=== PATIENT | male | born 1935 | race African-American/Black ===

== ENCOUNTER 2017-06-02 11:21 | Emergency (ER) | payer OTHER ==
--- NOTE | 2017-06-02 13:11 | RAD REPORT ---
EXAM DESCRIPTION: RAD - Chest Single View - 06/02/2017 1:04 pm CLINICAL HISTORY: Chest pain. COMPARISON: 05/20/2014, 02/15/2017 FINDINGS: Portable technique limits examination quality. Chronic inferior right hemithorax pleural and parenchymal opacification appears unchanged. Left lung is emphysematous but clear. The heart is normal in size. No displaced fractures.Mildly tortuous thora cic aorta.
[2017-06-02 13:14] LABS: Absolute Lymphocytes (CBC) 0.8 K/uL (0.7-4.9); Absolute Monocytes 0.4 K/uL (0.1-1.3); Absolute Neutrophil 3.8 K/uL (1.8-8.0); Basophils % 0.8 % (0-1.3); Eosinophils % 0.7 % (0-4.4); Hematocrit 52.6 % (39.6-49.0); Lymphocytes % 16.4 % (15.3-44.8); MCH 25.5 pg (27.0-35.0); MCV 79.4 fL (80-100); MPV 7.6 fL (7.6-11.3); Monocytes % 7.5 % (3.3-12.3); RBC Red Blood Cell Count 6.63 M/uL (4.33-5.43)
[2017-06-02 13:20] LABS: Protime INR 0.93
[2017-06-02 13:28] LABS: Potassium 4.7 mEq/L (3.6-5.0)
[2017-06-02 13:34] LABS: Albumin 4.2 g/dL (3.2-5.5); Bilirubin Direct 0.2 mg/dL (0-0.2); Bilirubin Total 1.1 mg/dL (0.3-1.2); Magnesium 2.5 mg/dL (1.8-2.5); Protein, Total 7.8 g/dL (6.0-8.3)
--- NOTE | 2017-06-02 13:43 | EKG ---
Test Date: 2017-06-02 Test Time: 11:39:03 Range Scientist: ROYAL MEASUREMENT RESULTS: Intervals: Rate: 69 ID: [id number] QRSD: 78 QT: 384 QTc: 411 Blanket: P: 64 ID: [id number] QRS: 81 T: 86 INTERPRETIVE STATEMENTS: Normal sinus rhythm Normal ECG Compared to ECG 05/20/2017 08:55:15 No significant changes Electronically Signed On 06-02-17 13:42:30 CDT by Maurcie Mratin
[2017-06-02 14:14] LABS: Urine Blood TRACE (NEG); Urine Glucose NEGATIVE (NEG); Urine Protein NEGATIVE (NEG); Urine pH 6.5 (5.0-7.0)
--- NOTE | 2017-06-02 14:58 | EDPHYS ---
Physician Documentation [facility] Name: Deacon Howe Jr Age: 81 yrs Sex: Male : 1935 Arrival Date: 06/02/2017 Time: 11:26 Bed 7 Private MD: ED Physician Gato Rodriguez HPI: 06/02 17:31 This 81 yrs old Black Male presents to ER via Ambulatory with complaints of Chest Pain, kdr shoulder pain, abdominal pain and misc other chest pain. 17:31 The patient or guardian reports chest pain that is located primarily in the anterior kdr chest wall. Onset: gradually, These are intermittent problems for which he has been evaluated previously. The pain does not radiate. Associated signs and symptoms: The patient has no apparent associated signs or symptoms. The chest pain is described as aching, dull. Duration: The patient or guardian reports multiple episodes, that are intermittent, that wax and wane, with no pattern. Severity of pain: At its worst the pain was mild in the emergency department the pain is unchanged. The patient has experienced similar episodes in the past, multiple times. Historical: - Allergies: 11:57 NKDA; hj - Home Meds: 11:57 Metoprolol Tartrate Oral [Active]; hj - PMHx: 11:57 colon cancer; Hypertension; hj - PSHx: 11:57 Cholecystectomy; right hip; right knee; colon resection; hj - Immunization history:: Adult Immunizations unknown. - Social history:: Smoking status: unknown. ROS: 17:31 Constitutional: Negative for fever, chills, and weight loss, Eyes: Negative for injury, kdr pain, redness, and discharge, Neck: Negative for injury, pain, and swelling, Respiratory: Negative for shortness of breath, cough, wheezing, and pleuritic chest pain, Back: Negative for injury and pain, : Negative for injury, bleeding, discharge, and swelling, MS/Extremity: Negative for injury and deformity, Skin: Negative for injury, rash, and discoloration, Neuro: Negative for headache, weakness, numbness, tingling, and seizure activity. Psych: Negative for depression, anxiety, suicide ideation, homicidal ideation, and hallucinations, Allergy/Immunology: Negative for hives, rash, and allergies, Endocrine: Negative for neck swelling, polydipsia, polyuria, polyphagia, and marked weight changes, Hematologic/Lymphatic: Negative for swollen nodes, abnormal bleeding, and unusual bruising. 17:31 Cardiovascular: Positive for chest pain. 17:31 Abdomen/GI: Positive for abdominal pain. Exam: 17:31 Constitutional: This is a well developed, well nourished patient who is awake, alert, kdr and in no acute distress. Head/Face: Normocephalic, atraumatic. Eyes: Pupils equal round and reactive to light, extra-ocular motions intact. Lids and lashes normal. Conjunctiva and sclera are non-icteric and not injected. Cornea within normal limits. Periorbital areas with no swelling, redness, or edema. Neck: Trachea midline, no thyromegaly or masses palpated, and no cervical lymphadenopathy. Supple, full range of motion without nuchal rigidity, or vertebral point tenderness. No Meningismus. Chest/axilla: Normal chest wall appearance and motion. Nontender with no deformity. No lesions are appreciated. Cardiovascular: Regular rate and rhythm with a normal S1 and S2. No gallops, murmurs, or rubs. Normal PMI, no JVD. No pulse deficits. Respiratory: Lungs have equal breath sounds bilaterally, clear to auscultation and percussion. No rales, rhonchi or wheezes noted. No increased work of breathing, no retractions or nasal flaring. Abdomen/GI: Soft, non-tender, with normal bowel sounds. No distension or tympany. No guarding or rebound. No evidence of tenderness throughout. Back: No spinal tenderness. No costovertebral tenderness. Full range of motion. Skin: Warm, dry with normal turgor. Normal color with no rashes, no lesions, and no evidence of cellulitis. MS/ Extremity: Pulses equal, no cyanosis. Neurovascular intact. Full, normal range of motion. Neuro: Awake and alert, GCS 15, oriented to person, place, time, and situation. Cranial nerves II-XII grossly intact. Motor strength 5/5 in all extremities. Sensory grossly intact. Cerebellar exam normal. Normal gait. Psych: Awake, alert, with orientation to person, place and time. Behavior, mood, and affect are within normal limits. Vital Signs: 11:57 BP 129 / 82; Pulse 95; Resp 18; Temp 97.9(O); Pulse Ox 98% on R/A; Weight 73.48 kg; hj Height 6 ft. 1 in. (185.42 cm); Pain 8/10; 12:45 BP 153 / 93; Pulse 71; Resp 20; Pulse Ox 98% ; Pain 7/10; jtb 13:30 BP 137 / 69; Pulse 67; Resp 18 S; Pulse Ox 99% on R/A; jl7 14:13 BP 123 / 46; Pulse 73; Resp 18; Pulse Ox 98% on R/A; jb1 14:45 BP 150 / 80; Pulse 75; Resp 16 S; Pulse Ox 98% on R/A; jl7 11:57 Body Mass Index 21.37 (73.48 kg, 185.42 cm) hj MDM: 14:57 Patient medically screened. kdr 17:31 Data reviewed: vital signs, nurses notes, lab test result(s), radiologic studies. kdr Counseling: I had a detailed discussion with the patient and/or guardian regarding: the historical points, exam findings, and any diagnostic results supporting the discharge/admit diagnosis, lab results, radiology results, the need for outpatient follow up. 06/02 12:48 Order name: Basic Metabolic Panel [facility] 06/02 12:48 Order name: BNP [facility] 06/02 12:48 Order name: CBC with Diff [facility] 06/02 12:48 Order name: LFT's [facility] 06/02 12:48 Order name: Magnesium [facility] 06/02 12:48 Order name: PT-INR [facility] 06/02 12:48 Order name: Ptt, Activated [facility] 06/02 12:48 Order name: Troponin (emerg Dept Use Only) [facility] 06/02 13:15 Order name: CBC with Automated Diff; Complete Time: 13:57 EDMS 06/02 13:20 Order name: Protime (+INR); Complete Time: 13:57 EDMS 06/02 13:20 Order name: PTT, Activated Partial Thromb; Complete Time: 13:57 EDMS 06/02 13:28 Order name: Basic Metabolic Panel; Complete Time: 13:57 EDMS 06/02 13:28 Order name: Urine Dipstick--Ancillary (enter results) ms 06/02 13:34 Order name: Liver (Hepatic) Function; Complete Time: 13:57 EDMS 06/02 12:01 Order name: EKG; Complete Time: 12:01 06/02 12:48 Order name: XRAY Chest (1 view) [facility] 06/02 12:48 Order name: Cardiac monitoring; Complete Time: 13: [facility] 06/02 12:48 Order name: EKG - Nurse/Tech; Complete Time: 13: [facility] 06/02 12:48 Order name: IV Saline Lock; Complete Time: 13: [facility] 06/02 12:48 Order name: Labs collected and sent; Complete Time: 13: [facility] 06/02 12:48 Order name: O2 Per Protocol; Complete Time: 13: [facility] 06/02 12:48 Order name: O2 Sat Monitoring; Complete Time: 13: [facility] 06/02 12:48 Order name: Urine Dipstick-Ancillary (obtain specimen); Complete Time: 13: [facility] 06/02 13:11 Order name: RAD; Complete Time: 13:57 EDMS 06/02 13:34 Order name: Magnesium; Complete Time: 13:57 EDMS 06/02 13:34 Order name: Troponin (Emerg Dept Use Only); Complete Time: 13:57 EDMS 06/02 13:37 Order name: BNP B-Type Natriuretic Peptide; Complete Time: 13:57 EDMS 06/02 14:14 Order name: Urine Dipstick-Ancillary; Complete Time: 14:49 EDMS Administered Medications: No medications were administered Disposition: 06/02/17 14:57 Discharged to Home. Impression: chronic chest pain, shoulder pain, abdominal pain. - Condition is Stable. - Discharge Instructions: Shoulder Pain, [id number], Abdominal Pain, Adult, [id number], Nonspecific Chest Pain, [id number]. - Medication Reconciliation Form, Thank You Letter, Antibiotic Education, Prescription Opioid Use form. - Follow up: Private Physician; When: 2 - 3 days; Reason: If symptoms return, Further diagnostic work-up, Recheck today's complaints, Continuance of care, Re-evaluation by your physician. - Problem is an ongoing problem. - Symptoms are unchanged. Signatures: Dispatcher [employer] EDMS Gato Rodriguez MD MD [facility] Trey Landaverde RN RN hj Skye Gore RN RN jl7 Hudson Johnson
--- NOTE | 2017-06-02 14:58 | ER ---
Nurse's Notes [facility] Name: Deacon Howe Jr Age: 81 yrs Sex: Male : 1935 Arrival Date: 06/02/2017 Time: 11:26 Bed 7 Private MD: Diagnosis: chronic chest pain, shoulder pain, abdominal pain Presentation: 06/02 11:54 Presenting complaint: EMS states: was called for a pt complaining of chest pain and abd hj pain in the last 3 days, reports nausea and vomiting; hx of colon cancer; BP- 156/84; HR- 69; 97% RA; aspirin 81 mg x 4 given 15 mins IS ARCHITECT:. Transition of care: patient was not received from another setting of care. Onset of symptoms was June 02, 2017. Care prior to arrival: None. 11:54 Method Of Arrival: Ambulatory 11:54 Acuity: ALIN 3 hj Triage Assessment: 11:56 General: Appears in no apparent distress. uncomfortable, Behavior is calm, cooperative, hj appropriate for age. Pain: Complains of pain in chest and abdomen. Cardiovascular: Capillary refill < 3 seconds Patient's skin is warm and dry. Historical: - Allergies: 11:57 NKDA; hj - Home Meds: 11:57 Metoprolol Tartrate Oral [Active]; hj - PMHx: 11:57 colon cancer; Hypertension; hj - PSHx: 11:57 Cholecystectomy; right hip; right knee; colon resection; hj - Immunization history:: Adult Immunizations unknown. - Social history:: Smoking status: unknown. Screenin:45 Abuse screen: Denies threats or abuse. Denies injuries from another. Nutritional jtb screening: No deficits noted. Tuberculosis screening: No symptoms or risk factors identified. Fall Risk IV access (20 points). Total Pedroza Fall Scale indicates No Risk (0-24 pts). Assessment: 11:56 Pain: Pain does not radiate. Pain began 2-3 days ago. hj 12:45 General: Appears in no apparent distress. uncomfortable, Behavior is calm, cooperative, jtb appropriate for age. Pain: Complains of pain in left low back, mid-sternal area and abdomen and left shoulder Pain does not radiate. Pain currently is 7 out of 10 on a pain scale. Quality of pain is described as aching, Pain began 2-3 days ago. Is intermittent. Neuro: Level of Consciousness is awake, alert, obeys commands, Oriented to person, place, time, situation. Cardiovascular: Patient's skin is warm and dry. Respiratory: Airway is patent Respiratory effort is even, unlabored, Respiratory pattern is regular, symmetrical. GI: Abdomen is flat, non-distended, Bowel sounds present X 4 quads. : No signs and/or symptoms were reported regarding the genitourinary system. EENT: No signs and/or symptoms were reported regarding the EENT system. Derm: Skin is dry, Skin is normal, Skin temperature is warm. Musculoskeletal: No signs and/or symptoms reported regarding the musculoskeletal system. 13:30 Reassessment: Pt laying in bed with eyes closed, respirations even and unlabored, no jl7 signs of distress noted at this time. Vital Signs: 11:57 BP 129 / 82; Pulse 95; Resp 18; Temp 97.9(O); Pulse Ox 98% on R/A; Weight 73.48 kg; hj Height 6 ft. 1 in. (185.42 cm); Pain 8/10; 12:45 BP 153 / 93; Pulse 71; Resp 20; Pulse Ox 98% ; Pain 7/10; jtb 13:30 BP 137 / 69; Pulse 67; Resp 18 S; Pulse Ox 99% on R/A; jl7 14:13 BP 123 / 46; Pulse 73; Resp 18; Pulse Ox 98% on R/A; jb1 14:45 BP 150 / 80; Pulse 75; Resp 16 S; Pulse Ox 98% on R/A; jl7 11:57 Body Mass Index 21.37 (73.48 kg, 185.42 cm) ED Course: 11:26 Patient arrived in ED. rg4 11:46 EKG done, by senior games technician. reviewed by Gato Rodriguez MD. tc 11:56 Triage completed. hj 11:56 Patient maintains SpO2 saturation greater than 95% on room air. hj 11:56 Arm band placed on right wrist. hj 12:08 Gato Rodriguez MD is Attending Physician. kdr 12:10 Skye Gore RN is Primary Nurse. jl7 12:45 Initial lab(s) drawn, by nh, sent to lab. Inserted saline lock: 22 gauge in right jtb forearm, using aseptic technique. Blood collected. 12:45 Patient has correct armband on for positive identification. Placed in gown. Bed in low jtb position. Call light in reach. Side rails up X 1. court recording monitor on. Pulse ox on. NIBP on. Warm blanket given. 13:01 X-ray completed. Portable x-ray completed in exam room. Patient tolerated procedure la2 well. 13:21 Urine collected: clean catch specimen, cloudy, marko colored. jb1 15:06 No provider procedures requiring assistance completed. IV discontinued, intact, jl7 bleeding controlled, No redness/swelling at site. Pressure dressing applied. Administered Medications: No medications were administered Outcome: 14:57 Discharge ordered by . kdr 15:06 Discharged to home ambulatory. jl7 15:06 Condition: stable 15:06 Discharge instructions given to patient, Instructed on discharge instructions, follow up and referral plans. Demonstrated understanding of instructions, follow-up care. 15:07 Patient left the ED. jl7 Signatures: Cristiano Lawrence jb1 Gato Rodriguez MD MD kdr Callis, Tiffany, inside account executive EKG Ttc Trey Landaverde, RN RN Janet El Jahala, RN RN jl7 Codi Gee la2 Hudson Johnson j Corrections: (The following items were deleted from the chart) 12:00 11:57 Pulse 95bpm; Resp 18bpm; Pulse Ox 98% RA; Temp 97.9F Oral; 73.48 kg; Height 6 ft. hj 1 in.; BMI: 21.3; Pain 8/10; hj
[2017-06-02 15:12] VITALS: TEMP 97.9
[2017-06-02 15:15] VITALS: O2SAT 98
[2017-06-02 15:16] VITALS: BP 150/80
== END 2017-06-02 15:07 | disposition home or self-care (01) ==
LOC: ER 11:21
DX: R07.9 Chest pain, unspecified (principal); R10.9 Unspecified abdominal pain; M25.519 Pain in unspecified shoulder; I10 Essential (primary) hypertension; Z85.038 Personal history of other malignant neoplasm of large intestine
CPT/HCPCS: 36415; 71045; 80048; 80076; 81003; 83735; 83880; 84484; 85025; 85610; 85730; 93005; 99285

== ENCOUNTER 2017-06-09 22:05 | Emergency (ER) | payer OTHER ==
[2017-06-09 23:44] LABS: Urine Blood NEGATIVE (NEG); Urine Glucose NEGATIVE (NEG); Urine Protein NEGATIVE (NEG); Urine Specific Gravity 1.015 (1.005-1.030)
[2017-06-10 00:22] LABS: Absolute Lymphocytes (CBC) 1.3 K/uL (0.7-4.9); Absolute Monocytes 0.4 K/uL (0.1-1.3); Absolute Neutrophil 3.8 K/uL (1.8-8.0); Basophils % 1.1 % (0-1.3); Eosinophils % 1.2 % (0-4.4); Hematocrit 52.3 % (39.6-49.0); Lymphocytes % 23.5 % (15.3-44.8); MCH 25.9 pg (27.0-35.0); MCV 80.5 fL (80-100); MPV 7.3 fL (7.6-11.3); Monocytes % 6.3 % (3.3-12.3)
[2017-06-10] MEDS ORDERED: ONDANSETRON 4 MG/2 ML VIAL ONE (00:33)
[2017-06-10 00:42] LABS: Bilirubin Direct 0.2 mg/dL (0-0.2); Bilirubin Total 0.9 mg/dL (0.3-1.2); Potassium 4.2 mEq/L (3.6-5.0); Protein, Total 7.9 g/dL (6.0-8.3)
--- NOTE | 2017-06-10 00:54 | EDPHYS ---
Physician Documentation [facility] Name: Deacon Howe Jr Age: 81 yrs Sex: Male : 1935 Arrival Date: 06/09/2017 Time: 22:08 Bed 5 Private MD: ED Physician Sp Herron HPI: 06/09 23:08 This 81 yrs old Black Male presents to ER via EMS with complaints of Abdominal Pain. rn 23:08 The patient presents with. The patient presents with abdominal pain in the epigastric rn area. Onset: The symptoms/episode began/occurred today. The symptoms do not radiate. Associated signs and symptoms: Pertinent positives: nausea, Pertinent negatives: diarrhea, fever, shortness of breath, vomiting. The symptoms are described as achy. Modifying factors: The symptoms are alleviated by nothing, the symptoms are aggravated by nothing. Severity of pain: At its worst the pain was mild in the emergency department the pain is unchanged. The patient has experienced similar episodes in the past. Reports 10-12 hours of upset stomach, + nausea, no vomiting/diarrhea, took diarrhea medication thinking it was for his stomach, no fever, no trauma, + chronic abd pain.. Historical: - Allergies: 22:20 NKDA; fc - Home Meds: 22:20 Naproxen Oral as needed [Active]; fc - PMHx: 22:20 colon cancer; Hypertension; fc - PSHx: 22:20 Cholecystectomy; right hip; right knee; colon resection; fc - Immunization history:: Last tetanus immunization: unknown. - Social history:: Smoking status: Patient uses tobacco products, smokes one pack cigarettes per day. Patient uses alcohol, on a daily basis. street drugs, cocaine. - Family history:: not pertinent. - Hospitalizations: : No recent hospitalization is reported. ROS: 23:08 Constitutional: Negative for fever, chills, and weight loss, Eyes: Negative for injury, rn pain, redness, and discharge, Neck: Negative for injury, pain, and swelling, Cardiovascular: Negative for palpitations, and edema, Respiratory: Negative for shortness of breath, cough, wheezing, and pleuritic chest pain, Abdomen/GI: Negative for vomiting, diarrhea, and constipation, MS/Extremity: Negative for injury and deformity, Skin: Negative for injury, rash, and discoloration, Neuro: Negative for headache, weakness, numbness, tingling, and seizure. Exam: 23:08 Constitutional: This is a well developed, well nourished patient who is awake, alert, rn and in no acute distress. Head/Face: Normocephalic, atraumatic. Eyes: Pupils equal round and reactive to light, extra-ocular motions intact. Lids and lashes normal. Conjunctiva and sclera are non-icteric and not injected. Cornea within normal limits. Periorbital areas with no swelling, redness, or edema. Neck: Trachea midline, no thyromegaly or masses palpated, and no cervical lymphadenopathy. Supple, full range of motion without nuchal rigidity, or vertebral point tenderness. No Meningismus. Cardiovascular: Regular rate and rhythm with a normal S1 and S2. No gallops, murmurs, or rubs. Normal PMI, no JVD. No pulse deficits. Respiratory: Lungs have equal breath sounds bilaterally, clear to auscultation and percussion. No rales, rhonchi or wheezes noted. No increased work of breathing, no retractions or nasal flaring. Abdomen/GI: Soft, non-tender, with normal bowel sounds. No distension or tympany. No guarding or rebound. No evidence of tenderness throughout. MS/ Extremity: Pulses equal, no cyanosis. Neurovascular intact. Full, normal range of motion. Equal circumference. Neuro: Awake and alert, GCS 15, oriented to person, place, time, and situation. Cranial nerves II-XII grossly intact. Motor strength 5/5 in all extremities. Sensory grossly intact. Vital Signs: 22:05 BP 180 / 95; Pulse 61; Resp 16; Temp 97.8(O); Pulse Ox 99% on R/A; Weight 73.94 kg (R); fc Height 6 ft. 2 in. (187.96 cm) (R); Pain 9/10; 22:38 BP 192 / 100; Pulse 69; Resp 16; Pulse Ox 100% ; bp 23:00 BP 182 / 104; Pulse 66; Resp 16; Pulse Ox 100% ; bp 23:54 BP 159 / 104; Pulse 63; Resp 14; Pulse Ox 99% ; bp 06/10 01:45 BP 145 / 69; Pulse 65; Resp 16; Pulse Ox 100% ; bp 06/09 22:05 Body Mass Index 20.93 (73.94 kg, 187.96 cm) MDM: 06/09 22:10 Patient medically screened. rn 06/10 00:51 Differential diagnosis: gastritis, urinary tract infection, gastritis, viral syndrome, rn nausea. Data reviewed: vital signs, nurses notes, lab test result(s), and as a result, I will discharge patient. Counseling: I had a detailed discussion with the patient and/or guardian regarding: the historical points, exam findings, and any diagnostic results supporting the discharge/admit diagnosis, lab results, the need for outpatient follow up, to return to the emergency department if symptoms worsen or persist or if there are any questions or concerns that arise at home. Special discussion: Based on the patient's Hx, exam, and Dx evaluation, there is no indication for emergent surgery or inpatient Tx. It is understood by the patient/guardian that if the Sx's persist or worsen they need to return immediately for re-evaluation. I discussed with the patient/guardian in detail that at this point there is no indication for admission to the hospital. It is understood, however, that if the symptoms persist or worsen the patient needs to return immediately for re-evaluation. 06/09 22:22 Order name: CBC with Diff; Complete Time: 00:50 rn 06/09 22:22 Order name: Basic Metabolic Panel; Complete Time: 00:50 rn 06/09 22:22 Order name: Troponin (emerg Dept Use Only); Complete Time: 00:50 rn 06/09 22:22 Order name: Hepatic Function; Complete Time: 00:50 rn 06/09 22:22 Order name: Lipase; Complete Time: 00:50 rn 06/09 23:10 Order name: Urine Dipstick--Ancillary (enter results); Complete Time: 00:14 em1 06/09 22:22 Order name: IV Start; Complete Time: 00:20 rn 06/09 22:22 Order name: EKG; Complete Time: 22:23 rn 06/09 22:22 Order name: EKG - Nurse/Tech; Complete Time: 23:00 rn 06/09 22:22 Order name: Labs collected and sent; Complete Time: 00:20 rn Administered Medications: 00:19 Drug: Zofran 4 mg Route: IVP; Site: right upper arm; bp 01:49 Follow up: Response: Nausea is decreased bp 01:02 Drug: NS 0.9% 500 ml {Note: right upper arm.} Route: IV; Rate: bolus; Site: Other; wendie 01:49 Follow up: IV Status: Completed infusion bp Disposition: 06/10/17 00:54 Discharged to Home. Impression: Unspecified abdominal pain. - Condition is Stable. - Discharge Instructions: Abdominal Pain, Adult. - Medication Reconciliation Form, Thank You Letter, Antibiotic Education, Prescription Opioid Use form. - Follow up: Private Physician; When: As needed; Reason: Recheck today's complaints, Re-evaluation by your physician. - Problem is chronic. - Symptoms have improved. Signatures: Dispatcher [employer] Heaven Orozco, RN RN Sp Estrada MD MD rn Antunez, Elena, RN RN Braeden Horn, RN RN bp
--- NOTE | 2017-06-10 00:54 | ER ---
Nurse's Notes [facility] Name: Deacon Howe Jr Age: 81 yrs Sex: Male : 1935 Arrival Date: 06/09/2017 Time: 22:08 Bed 5 Private MD: Diagnosis: Unspecified abdominal pain Presentation: 06/09 22:05 Presenting complaint: EMS states: that pt was complaining of abd pain that started over fc 12 hrs. Denies any nausea or vomiting. Last bowel movement at 1700 today. Pt did have one beer today at 2000. bp 158/90, heart rate 69 and sats 98%. Transition of care: patient was not received from another setting of care. Onset of symptoms was June 09, 2017. Care prior to arrival: None. 22:05 Method Of Arrival: EMS: [facility] 22:05 Acuity: ALIN 3 fc Historical: - Allergies: 22:20 NKDA; fc - Home Meds: 22:20 Naproxen Oral as needed [Active]; fc - PMHx: 22:20 colon cancer; Hypertension; fc - PSHx: 22:20 Cholecystectomy; right hip; right knee; colon resection; fc - Immunization history:: Last tetanus immunization: unknown. - Social history:: Smoking status: Patient uses tobacco products, smokes one pack cigarettes per day. Patient uses alcohol, on a daily basis. street drugs, cocaine. - Family history:: not pertinent. - Hospitalizations: : No recent hospitalization is reported. Screenin:05 Abuse screen: Denies threats or abuse. Nutritional screening: No deficits noted. fc Tuberculosis screening: No symptoms or risk factors identified. Fall Risk Fall in past 12 months (25 points). Secondary diagnosis (15 points) impaired mobility, No IV (0 pts). Ambulatory Aid- None/Bed Rest/Nurse Assist (0 pts). Gait- Weak (10 pts.). Mental Status- Overestimates/Forgets Limitations (15 pts.). Total Pedroza Fall Scale indicates Low Risk Score (25-44 pts). Fall prevention measures have been instituted. Side Rails Up X 2 Placed close to Nursing Station Frequent Obs/Assesments occuring As available Patient and Family Educated on Fall Prevention Program and strategies. Assessment: 22:10 General: Appears in no apparent distress. comfortable, Behavior is calm, cooperative, bp appropriate for age. Pain: Complains of pain in abdomen. Neuro: Level of Consciousness is awake, alert, obeys commands, Oriented to person, place, time, situation, Appropriate for age. Cardiovascular: Capillary refill < 3 seconds in bilateral fingers Patient's skin is warm and dry. Respiratory: Airway is patent Respiratory effort is even, unlabored, Respiratory pattern is regular, symmetrical. GI: Bowel sounds present X 4 quads. Abd is soft and non tender X 4 quads. : No signs and/or symptoms were reported regarding the genitourinary system. EENT: No deficits noted. Derm: No deficits noted. Musculoskeletal: Circulation, motion, and sensation intact. Range of motion: intact in all extremities. 23:10 Reassessment: UNABLE TO OBTAIN PIV, MD NOTIFIED. LAB PAGED FOR BLOOD DRAW. bp 23:54 Reassessment: LAB UNABLE TO OBTAIN BLOOD SPECIMEN, PROVIDER NOTIFIED. bp 06/10 01:03 Reassessment: pt resting with eyes closed, respirations even and unlabored, chest ea expansions even and symmetrical. No obvious s/s of pain or discomfort noted at this time. 01:50 Reassessment: PT D/C HOME WITH FAMILY, DX WITH NONSPECIFIC ABD PAIN. bp Vital Signs: 06/09 22:05 BP 180 / 95; Pulse 61; Resp 16; Temp 97.8(O); Pulse Ox 99% on R/A; Weight 73.94 kg (R); fc Height 6 ft. 2 in. (187.96 cm) (R); Pain 9/10; 22:38 BP 192 / 100; Pulse 69; Resp 16; Pulse Ox 100% ; bp 23:00 BP 182 / 104; Pulse 66; Resp 16; Pulse Ox 100% ; bp 23:54 BP 159 / 104; Pulse 63; Resp 14; Pulse Ox 99% ; bp 06/10 01:45 BP 145 / 69; Pulse 65; Resp 16; Pulse Ox 100% ; bp 06/09 22:05 Body Mass Index 20.93 (73.94 kg, 187.96 cm) fc ED Course: 06/09 22:05 Arm band placed on Patient placed in an exam room, on a stretcher. fc 22:05 Patient has correct armband on for positive identification. Placed in gown. Bed in low fc position. Call light in reach. 22:08 Patient arrived in ED. em1 22:08 Braeden Farnsworth MARYANNE is Primary Nurse. bp 22:10 Sp Herron MD is Attending Physician. rn 22:18 Triage completed. 06/10 00:10 Inserted 18 gauge 10 cm midline to right upper basilic vein on first attempt. Line with fc good blood return and flushes well. 01:49 No provider procedures requiring assistance completed. IV discontinued, intact, bp bleeding controlled, No redness/swelling at site. Pressure dressing applied. Administered Medications: 00:19 Drug: Zofran 4 mg Route: IVP; Site: right upper arm; bp 01:49 Follow up: Response: Nausea is decreased bp 01:02 Drug: NS 0.9% 500 ml {Note: right upper arm.} Route: IV; Rate: bolus; Site: Other; ea 01:49 Follow up: IV Status: Completed infusion bp Outcome: 00:54 Discharge ordered by MD. rn 01:51 Discharged to home ambulatory, with family. bp 01:51 Condition: stable 01:51 Discharge instructions given to patient, Instructed on discharge instructions, follow up and referral plans. Demonstrated understanding of instructions, follow-up care. 01:51 Patient left the ED. bp Signatures: Heaven Stoner RN RN Sp Herron MD MD rn Martinez, Eric em1 Nayla Palmer RN RN Braeden Farnsworth, MARYANNE RN bp Corrections: (The following items were deleted from the chart) 06/09 22:20 22:12 BP 180 / 95; Pulse 61bpm; Resp 16bpm; Pulse Ox 99%; bp fc
[2017-06-10] MEDS ORDERED: NA CHLORIDE 0.9% 500 ML ONE (01:19)
[2017-06-10 01:57] VITALS: TEMP 97.8
[2017-06-10 02:01] VITALS: BP 145/69; O2SAT 100
--- NOTE | 2017-06-10 16:29 | EKG ---
Test Date: 2017-06-09 Test Time: 22:32:01 Night Custodian: JEYSON MEASUREMENT RESULTS: Intervals: Rate: 63 [place]: 192 QRSD: 78 QT: 388 QTc: [address]: P: 59 OK: 192 QRS: 65 T: 93 INTERPRETIVE STATEMENTS: Normal sinus rhythm Normal ECG Compared to ECG 06/02/2017 11:39:03 No significant changes Electronically Signed On 06-10-17 16:27:46 CDT by Rocco Menjivar
== END 2017-06-10 01:51 | disposition home or self-care (01) ==
LOC: ER 22:05
DX: R10.9 Unspecified abdominal pain (principal); F17.210 Nicotine dependence, cigarettes, uncomplicated; I10 Essential (primary) hypertension; Z85.038 Personal history of other malignant neoplasm of large intestine
CPT/HCPCS: 36415; 80048; 80076; 81003; 83690; 84484; 85025; 93005; 96361; 96374; 99283; J2405

== ENCOUNTER 2017-08-06 06:04 | Emergency (ER) | payer OTHER ==
[2017-08-06] MEDS ORDERED: ASPIRIN 81 MG CHEWABLE TABLET ONE (06:42)
[2017-08-06 06:53] LABS: Absolute Lymphocytes (CBC) 1.1 K/uL (0.7-4.9); Absolute Monocytes 0.6 K/uL (0.1-1.3); Absolute Neutrophil 2.6 K/uL (1.8-8.0); Basophils % 0.6 % (0-1.3); Eosinophils % 1.9 % (0-4.4); Hematocrit 41.4 % (39.6-49.0); Lymphocytes % 24.1 % (15.3-44.8); MCH 25.9 pg (27.0-35.0); MCV 80.3 fL (80-100); MPV 7.3 fL (7.6-11.3); Monocytes % 13.8 % (3.3-12.3); Protime INR 1.01; RBC Red Blood Cell Count 5.15 M/uL (4.33-5.43)
[2017-08-06 07:01] LABS: Potassium 3.5 mEq/L (3.6-5.0)
[2017-08-06 07:07] LABS: Albumin 3.2 g/dL (3.2-5.5); Bilirubin Direct 0.2 mg/dL (0-0.2); Bilirubin Total 0.8 mg/dL (0.3-1.2); Protein, Total 6.1 g/dL (6.0-8.3)
[2017-08-06 07:10] LABS: CKMB Creatine Kinase MB 4.4 ng/ml (0.3-4.0)
[2017-08-06] MEDS ORDERED: TRAMADOL HCL 50 MG TAB ONE (07:47)
--- NOTE | 2017-08-06 08:03 | RAD REPORT ---
EXAM DESCRIPTION: RAD - Chest Single View - 08/06/2017 6:53 am CLINICAL HISTORY: Chest pain COMPARISON: Portable chest June 02, CT imaging November 2016 TECHNIQUE: AP portable chest image was obtained 0636 hours . FINDINGS: Left lung collier shows no infiltrate or mass. Overall the chest shows no failure or volume overload. Patient has chronic calcified loculated pleural collection lateral right base with adjacen t parenchymal scarring. This is a stable pattern back to November 2016. Right costophrenic angle tyson nting is stable. Trachea remains midline. Heart and vasculature are normal. No measurable pleural eff usion and no pneumothorax. No gross bony abnormality seen. No acute aortic findings suspected. IMPRESSION: No acute cardiopulmonary process. Chronic pleural and parenchymal opacification is stable from prior imaging.
--- NOTE | 2017-08-06 08:49 | EDPHYS ---
Physician Documentation [facility] Name: Deacon Howe Jr Age: 81 yrs Sex: Male : 1935 Arrival Date: 08/06/2017 Time: 06:15 Bed 19 Private MD: ED Physician Derian Corrales HPI: 08/06 06:34 This 81 yrs old Black Male presents to ER via EMS with complaints of chest pain, back kb pain. 06:34 The patient or guardian reports chest pain that is located primarily in the chest kb diffusely. Onset: yesterday. The pain does not radiate. Associated signs and symptoms: The patient has no apparent associated signs or symptoms. The chest pain is described as aching. Duration: The patient or guardian reports multiple episodes, that are intermittent, with no pattern. Modifying factors: The symptoms are alleviated by nothing. the symptoms are aggravated by nothing. Severity of pain: At its worst the pain was mild moderate in the emergency department the pain is unchanged. The patient has experienced similar episodes in the past, multiple times, today's symptoms are similar. The patient has not recently seen a physician. Pt states he has had chest pain since yesterday that comes and goes. He has been evaluated for this pain several times in the past. States he also has pain to right low back that radiates down buttock and leg that started this morning. Denies shortness of breath or any other symptoms. Pt reports he came in for the pain in his lower back because he was worried it was caused by something he ate. . Historical: - Allergies: 06:18 NKDA; jd3 - Home Meds: 06:18 Naproxen Oral as needed [Active]; jd3 - PMHx: 06:18 colon cancer; Hypertension; jd3 - PSHx: 06:18 Cholecystectomy; right hip; colon resection; jd3 - Immunization history:: Adult Immunizations up to date. - Social history:: Smoking status: Patient uses tobacco products, smokes one-half pack cigarettes per day. - Ebola Screening: : No symptoms or risks identified at this time. ROS: 06:36 Constitutional: Negative for fever, chills, and weight loss, Respiratory: Negative for kb shortness of breath, cough, wheezing, and pleuritic chest pain, Abdomen/GI: Negative for abdominal pain, nausea, vomiting, diarrhea, and constipation, : Negative for injury, bleeding, discharge, and swelling, MS/Extremity: Negative for injury and deformity, Skin: Negative for injury, rash, and discoloration, Neuro: Negative for headache, weakness, numbness, tingling, and seizure. 06:36 Cardiovascular: Positive for chest pain, Negative for edema, orthopnea, palpitations, paroxysmal nocturnal dyspnea. 06:36 Back: Positive for pain at rest, pain with movement, radiated pain, of the right low back. Exam: 06:36 Constitutional: This is a well developed, well nourished patient who is awake, alert, kb and in no acute distress. Head/Face: Normocephalic, atraumatic. Chest/axilla: Normal chest wall appearance and motion. Nontender with no deformity. No lesions are appreciated. Cardiovascular: Regular rate and rhythm with a normal S1 and S2. No gallops, murmurs, or rubs. Normal PMI, no JVD. No pulse deficits. Respiratory: Lungs have equal breath sounds bilaterally, clear to auscultation and percussion. No rales, rhonchi or wheezes noted. No increased work of breathing, no retractions or nasal flaring. Abdomen/GI: Soft, non-tender, with normal bowel sounds. No distension or tympany. No guarding or rebound. No evidence of tenderness throughout. Skin: Warm, dry with normal turgor. Normal color with no rashes, no lesions, and no evidence of cellulitis. MS/ Extremity: Pulses equal, no cyanosis. Neurovascular intact. Full, normal range of motion. Neuro: Awake and alert, GCS 15, oriented to person, place, time, and situation. Cranial nerves II-XII grossly intact. Motor strength 5/5 in all extremities. Sensory grossly intact. Cerebellar exam normal. Normal gait. 06:36 Back: pain, that is mild, that is moderate, of the right low back, ROM is normal, normal spinal alignment noted. Vital Signs: 06:19 BP 128 / 62; Pulse 76; Resp 18 S; Temp 97.9(O); Pulse Ox 98% on R/A; Weight 74.84 kg jd3 (R); Height 6 ft. 1 in. (185.42 cm) (R); Pain 8/10; 07:26 BP 124 / 91; Pulse 63; Resp 16; Pulse Ox 100% on R/A; em 08:30 BP 157 / 81; Pulse 61; Resp 18; Pulse Ox 97% on R/A; Pain 0/10; em 06:19 Body Mass Index 21.77 (74.84 kg, 185.42 cm) jd3 MDM: 06:18 Patient medically screened. kb 06:36 Data reviewed: vital signs, nurses notes. kb 06:37 The patient was given aspirin in the Emergency Department. kb 06:37 Data interpreted: Pulse oximetry: on room air is 98 %. Interpretation: normal. kb 08:47 Counseling: I had a detailed discussion with the patient and/or guardian regarding: the kb historical points, exam findings, and any diagnostic results supporting the discharge/admit diagnosis, lab results, radiology results, the need for outpatient follow up, a family practitioner, to return to the emergency department if symptoms worsen or persist or if there are any questions or concerns that arise at home. 08/06 06:18 Order name: Basic Metabolic Panel; Complete Time: 07:41 kb 08/06 06:18 Order name: BNP; Complete Time: 07:13 kb 08/06 06:18 Order name: CBC with Diff; Complete Time: 06:55 kb 08/06 06:18 Order name: Ckmb; Complete Time: 07:41 kb 08/06 06:18 Order name: CPK; Complete Time: 07:41 kb 08/06 06:18 Order name: LFT's; Complete Time: 07:41 kb 08/06 06:18 Order name: Magnesium; Complete Time: 07:41 kb 08/06 06:18 Order name: PT-INR; Complete Time: 06:55 kb 08/06 06:18 Order name: Ptt, Activated; Complete Time: 06:55 kb 08/06 06:18 Order name: Troponin (emerg Dept Use Only); Complete Time: 07:08 kb 08/06 06:18 Order name: XRAY Chest (1 view); Complete Time: 08:05 kb 08/06 08:06 Order name: Troponin (emerg Dept Use Only); Complete Time: 08:47 kb 08/06 06:18 Order name: EKG; Complete Time: 06:19 kb 08/06 06:18 Order name: Cardiac monitoring; Complete Time: 06:25 kb 08/06 06:18 Order name: EKG - Nurse/Tech; Complete Time: 06:25 kb 08/06 06:18 Order name: IV Saline Lock; Complete Time: 06:39 kb 08/06 06:18 Order name: Labs collected and sent; Complete Time: 06:39 kb 08/06 06:18 Order name: O2 Per Protocol; Complete Time: 06:25 kb 08/06 06:18 Order name: O2 Sat Monitoring; Complete Time: 06:25 kb 08/06 08:06 Order name: EKG; Complete Time: 08:06 kb 08/06 08:06 Order name: EKG - Nurse/Tech; Complete Time: 08:33 kb Administered Medications: 06:43 Drug: Aspirin Chewable Tablet 324 mg Route: PO; jd3 08:33 Follow up: Response: No adverse reaction em 08:04 Drug: traMADol 50 mg Route: PO; em 08:33 Follow up: Response: No adverse reaction em Disposition: 08/06/17 08:48 Discharged to Home. Impression: Sciatica, right side, Chest pain, unspecified. - Condition is Stable. - Discharge Instructions: Nonspecific Chest Pain, [id number], Sciatica, [id number]. - Prescriptions for Diclofenac Sodium 75 mg Oral Tablet, Delayed Release (E.C.) - take 1 tablet by ORAL route 2 times per day As needed; 30 tablet. - Medication Reconciliation Form, Thank You Letter, Antibiotic Education, Prescription Opioid Use form. - Follow up: Emergency Department; When: As needed; Reason: Worsening of condition. Follow up: Private Physician; When: 2 - 3 days; Reason: Recheck today's complaints, Continuance of care, Re-evaluation by your physician. Addendum: 08/10/2017 07:13 Co-signature as Attending Physician, Derian Corrales MD. g s Signatures: Dispatcher [employer] Karen Bravo, BATTER OUT-C BATTER OUT-Ckb Alfredo, Ad, WELFARE CASE WORKER WELFARE CASE WORKER em Derian Corrales MD MD gs Davies, Jonathon RN RN jd3 Corrections: (The following items were deleted from the chart) 08/06 07:08 06:34 The patient has not experienced similar symptoms in the past, kb kb 07:08 06:34 Pt states he has had chest pain since yesterday that comes and goes. States he kb also has pain to right low back that radiates down buttock and leg that started this morning. Denies shortness of breath or any other symptoms. . kb 09:03 06:18 Urine Dipstick-Ancillary ordered. kb em 09:08 08:48 08/06/2017 08:48 Discharged to Home. Impression: Sciatica, right side; Chest em pain, unspecified. Condition is Stable. Forms are Medication Reconciliation Form, Thank You Letter, Antibiotic Education, Prescription Opioid Use. Follow up: Emergency Department; When: As needed; Reason: Worsening of condition. Follow up: Private Physician; When: 2 - 3 days; Reason: Recheck today's complaints, Continuance of care, Re-evaluation by your physician. kb
--- NOTE | 2017-08-06 08:49 | ER ---
Nurse's Notes [facility] Name: Deacon Howe Jr Age: 81 yrs Sex: Male : 1935 Arrival Date: 08/06/2017 Time: 06:15 Bed 19 Private MD: Diagnosis: Sciatica, right side;Chest pain, unspecified Presentation: 08/06 06:15 Presenting complaint: EMS states: "He is complaining of some chest pain, but mainly jd3 back/backside pain. He says it hurts to sit down and move around.". Transition of care: patient was not received from another setting of care. Onset of symptoms was August 06, 2017. Risk Assessment: Do you want to hurt yourself or someone else? Patient reports no desire to harm self or others. Initial Sepsis Screen: Does the patient meet any 2 criteria? No. Patient's initial sepsis screen is negative. Does the patient have a suspected source of infection? No. Patient's initial sepsis screen is negative. Care prior to arrival: None. 06:15 Method Of Arrival: EMS: [facility] jd3 06:15 Acuity: ALIN 3 jd3 Historical: - Allergies: 06:18 NKDA; jd3 - Home Meds: 06:18 Naproxen Oral as needed [Active]; jd3 - PMHx: 06:18 colon cancer; Hypertension; jd3 - PSHx: 06:18 Cholecystectomy; right hip; colon resection; jd3 - Immunization history:: Adult Immunizations up to date. - Social history:: Smoking status: Patient uses tobacco products, smokes one-half pack cigarettes per day. - Ebola Screening: : No symptoms or risks identified at this time. Screenin:23 Abuse screen: Denies threats or abuse. Nutritional screening: No deficits noted. jd3 Tuberculosis screening: No symptoms or risk factors identified. Fall Risk Fall in past 12 months (25 points). Ambulatory Aid- Crutches/Cane/Walker (15 pts). Gait- Weak (10 pts.). Mental Status- Oriented to own ability (0 pts). Total Pedroza Fall Scale indicates High Risk Score (45 or more points). Fall prevention measures have been instituted. Side Rails Up X 2 Placed Close to Nursing Station Frequent Obs/Assessments Occuring. Assessment: 06:20 General: Appears uncomfortable, Behavior is calm, cooperative, appropriate for age. jd3 Pain: Complains of pain in buttocks and chest Pain currently is 8 out of 10 on a pain scale. Quality of pain is described as aching, Pain began 2-3 days ago. Is continuous. Neuro: Level of Consciousness is awake, alert, obeys commands, Oriented to person, place, time, situation. Cardiovascular: Heart tones S1 S2 present Capillary refill < 3 seconds Patient's skin is warm and dry. Rhythm is regular. Respiratory: Airway is patent Respiratory effort is even, unlabored, Respiratory pattern is regular, symmetrical, Breath sounds are clear bilaterally. GI: Abdomen is flat, Bowel sounds present X 4 quads. Abd is soft and non tender X 4 quads. Patient currently denies nausea, vomiting. : No signs and/or symptoms were reported regarding the genitourinary system. EENT: No signs and/or symptoms were reported regarding the EENT system. Derm: Skin is intact, Skin is dry, Skin is normal, Skin temperature is warm. Musculoskeletal: Circulation, motion, and sensation intact. Range of motion: intact in all extremities. 07:19 General: Appears in no apparent distress. comfortable, Behavior is calm, cooperative. em Pain: Complains of pain in chest. Neuro: Level of Consciousness is awake, alert, obeys commands, Oriented to person, place, time, situation. Cardiovascular: Capillary refill < 3 seconds Patient's skin is warm and dry. Rhythm is regular. Respiratory: Airway is patent Respiratory effort is even, unlabored, Respiratory pattern is regular, symmetrical, Breath sounds are clear bilaterally. GI: Abdomen is flat. : No signs and/or symptoms were reported regarding the genitourinary system. Derm: Skin is intact, Skin is dry, Skin is normal, Skin temperature is warm. Musculoskeletal: Range of motion: intact in all extremities. 07:25 Reassessment: Patient appears in no apparent distress at this time. I agree with above iw assessment by Ad Fuentes LVN. 08:15 Reassessment: Patient appears in no apparent distress at this time. Patient and/or em family updated on plan of care and expected duration. Pain level reassessed. Patient is alert, oriented x 3, equal unlabored respirations, skin warm/dry/pink. pt request juice and crackers. Vital Signs: 06:19 BP 128 / 62; Pulse 76; Resp 18 S; Temp 97.9(O); Pulse Ox 98% on R/A; Weight 74.84 kg jd3 (R); Height 6 ft. 1 in. (185.42 cm) (R); Pain 8/10; 07:26 BP 124 / 91; Pulse 63; Resp 16; Pulse Ox 100% on R/A; em 08:30 BP 157 / 81; Pulse 61; Resp 18; Pulse Ox 97% on R/A; Pain 0/10; em 06:19 Body Mass Index 21.77 (74.84 kg, 185.42 cm) jd3 ED Course: 06:15 Patient arrived in ED. jd3 06:17 Triage completed. jd3 06:18 [facility]C [facility]. kb 06:18 Derian Corrales MD is Attending Physician. kb 06:20 Arm band placed on. jd3 06:24 Patient has correct armband on for positive identification. Allergy band placed. Bed in jd3 low position. Call light in reach. Side rails up X2. 06:35 Inserted saline lock: 20 gauge in right antecubital area, using aseptic technique. jd3 Blood collected. 06:39 Tigre Enciso RN is Primary Nurse. jd3 06:53 XRAY Chest (1 view) In Process Unspecified. EDMS 08:59 No provider procedures requiring assistance completed. IV discontinued, intact, em bleeding controlled, No redness/swelling at site. Pressure dressing applied. Administered Medications: 06:43 Drug: Aspirin Chewable Tablet 324 mg Route: PO; jd3 08:33 Follow up: Response: No adverse reaction em 08:04 Drug: traMADol 50 mg Route: PO; em 08:33 Follow up: Response: No adverse reaction em Outcome: 08:48 Discharge ordered by . kb 08:59 Discharged to home ambulatory. em 08:59 Condition: good 08:59 Discharge instructions given to patient, Instructed on discharge instructions, follow up and referral plans. medication usage, Demonstrated understanding of instructions, follow-up care, medications, Prescriptions given X 1. 09:08 Patient left the ED. em Signatures: Dispatcher [employer] EDMS Karen Up FNP-C FNP-Renzob Ad Fuentes, BURR MILL OPERATOR BURR MILL OPERATOR em Sapphire Benitez RN RN iw Tigre Enciso RN RN jd3
[2017-08-06 09:12] VITALS: TEMP 97.9
[2017-08-06 09:15] VITALS: BP 157/81; O2SAT 97
--- NOTE | 2017-08-06 17:39 | EKG ---
Test Date: 2017-08-06 Test Time: 08:14:41 Guitar Teacher: ROYAL MEASUREMENT RESULTS: Intervals: Rate: 62 [place]: 190 QRSD: 80 QT: 408 QTc: 414 [place]: P: 73 [place]: 190 QRS: 80 T: 85 INTERPRETIVE STATEMENTS: Normal sinus rhythm Normal ECG Compared to ECG 08/06/2017 06:05:51 Myocardial infarct finding no longer present Electronically Signed On 08-06-17 17:37:02 CDT by Rocco Menjivar
--- NOTE | 2017-08-06 17:40 | EKG ---
Test Date: 2017-08-06 Test Time: 06:05:51 Cash Register Repairer: KATELYN MEASUREMENT RESULTS: Intervals: Rate: 70 [place]: 180 QRSD: 86 QT: 388 QTc: 419 [place]: P: 68 [place]: 180 QRS: 81 T: 81 INTERPRETIVE STATEMENTS: Normal sinus rhythm Cannot rule out Anterior infarct, age undetermined Abnormal ECG Compared to ECG 06/09/2017 22:32:01 Myocardial infarct finding now present Electronically Signed On 08-06-17 17:37:06 CDT by Rocco Menjivar
== END 2017-08-06 09:08 | disposition home or self-care (01) ==
LOC: ER 06:04
DX: M54.31 Sciatica, right side (principal); I10 Essential (primary) hypertension; F17.210 Nicotine dependence, cigarettes, uncomplicated; Z85.038 Personal history of other malignant neoplasm of large intestine
CPT/HCPCS: 36415; 71045; 80048; 80076; 82550; 82553; 83735; 83880; 84484; 85025; 85610; 85730; 93005; 99284

== ENCOUNTER 2017-08-25 09:53 | Emergency (ER) | payer OTHER ==
[2017-08-25] MEDS ORDERED: NA CHLORIDE 0.9% 1,000 ML ONE (10:43)
[2017-08-25] MEDS ORDERED: ONDANSETRON 4 MG/2 ML VIAL ONE (10:43)
[2017-08-25 11:04] LABS: Bicarbonate 24 mEq/L (21-31); Glucose Level 82 mg/dL (65-120); Lipase 27 U/L (22-51); Potassium 3.5 mEq/L (3.6-5.0); Sodium Level 136 mEq/L (135-145)
[2017-08-25 11:05] LABS: Absolute Monocytes 0.4 K/uL (0.1-1.3); Absolute Neutrophil 3.4 K/uL (1.8-8.0); Eosinophils % 1.2 % (0-4.4); Hematocrit 42.5 % (39.6-49.0); Lymphocytes % 20.6 % (15.3-44.8); MCH 26.1 pg (27.0-35.0); MCV 80.4 fL (80-100); MPV 7.4 fL (7.6-11.3); Monocytes % 8.7 % (3.3-12.3); RBC Red Blood Cell Count 5.29 M/uL (4.33-5.43)
[2017-08-25 11:11] LABS: ALT/SGPT 27 IU/L (10-60); AST/SGOT 31 IU/L (10-42); Albumin 3.4 g/dL (3.2-5.5); Alkaline Phosphatase 107 IU/L (42-121); Amylase Level 95 U/L (28-100); BUN Blood Urea Nitrogen 12 mg/dL (6-20); Bilirubin Direct 0.2 mg/dL (0-0.2); Bilirubin Total 0.9 mg/dL (0.3-1.2); Protein, Total 6.8 g/dL (6.0-8.3)
[2017-08-25] MEDS ORDERED: HYDRALAZINE HCL 20 MG/ML VIAL ONE (11:29)
[2017-08-25] MEDS ORDERED: LORazepam 2 MG/ML VIAL ONE (11:29)
[2017-08-25 11:46] LABS: Urine Blood NEGATIVE (NEG); Urine Glucose NEGATIVE (NEG); Urine Protein NEGATIVE (NEG); Urine pH 5.5 (5.0-7.0)
[2017-08-25 12:09] LABS: Urine Bacteria NONE SEEN /HPF (NONE SEEN); Urine Culture Reflex Order NOT NEEDED; Urine RBC <5 /HPF (NONE SEEN)
[2017-08-25 12:29] LABS: Blood Morphology Comment NOT SEEN (NOT SEEN); Platelet Estimate ADEQ
--- NOTE | 2017-08-25 13:45 | RAD REPORT ---
EXAM DESCRIPTION: RAD - Abdomen 1 View (KUB) - 08/25/2017 1:32 pm CLINICAL HISTORY: Abdominal pain, vomiting COMPARISON: Chest exam August 06, CT trauma study November 2016, CT imaging December 2014 FINDINGS: Bowel gas pattern is non-specific. No obstruction, free air or pneumatosis. Cholecystecto my clips are present. No suspicious calcifications. Right hip prosthesis remains in place. Lucent areas along the superior and inferior margin of the hai tabulum match prior imaging. 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 Pleural and parenchymal stranding and pleural calcifications lateral right base are long-standing ove r multiple examinations. IMPRESSION: No bowel obstruction, free air or surgically emergent finding. Above detailed findings are not significantly different from prior imaging.
--- NOTE | 2017-08-25 13:58 | EDPHYS ---
Physician Documentation [facility] Name: Deacon Howe Jr Age: 81 yrs Sex: Male : 1935 Arrival Date: 08/25/2017 Time: 09:55 Bed 17 Private MD: ED Physician Gato Rodriguez HPI: 08/25 09:57 This 81 yrs old Black Male presents to ER via Unassigned with complaints of Vomiting. kav 10:08 The patient presents to the emergency department with nausea, vomiting, 4 times today. kav Onset: The symptoms/episode began/occurred acutely, this morning. Possible causes: unknown. The symptoms are aggravated by nothing. The symptoms are alleviated by nothing. Associated signs and symptoms: The patient has no apparent associated signs or symptoms, Pertinent negatives: abdominal pain, diarrhea, fever, hematuria. Severity of symptoms: At their worst the symptoms were very mild just prior to arrival. The patient has not experienced similar symptoms in the past. The patient has been recently seen by a physician: the patient's primary care provider, Orestes Azul NP. reports having his blood work done at PCP this past Wednesday and "...no problems"; smokes 1 ppd, drinks 1 beer q daily. 10:13 . kav 10:27 Labwork done by pcp/roque azul np on 08/23/17: CR 1.28 (baseline CR 1.15 May kav 208). Historical: - Allergies: 10:03 NKDA; aa5 - Home Meds: 11:46 Naproxen Oral as needed [Active]; tw2 - PMHx: 10:03 colon cancer; Hypertension; aa5 - PSHx: 10:03 Cholecystectomy; right hip; colon resection; aa5 - Immunization history:: Adult Immunizations unknown. - Social history:: Smoking status: Patient uses tobacco products, smokes one pack cigarettes per day. Patient uses alcohol, occasionally. - Ebola Screening: : No symptoms or risks identified at this time. - Family history:: not pertinent. - Hospitalizations: : No recent hospitalization is reported. - History obtained from: EMS. ROS: 10:11 Constitutional: Negative for fever, chills, and weight loss, Eyes: Negative for injury, kav pain, redness, and discharge, ENT: Negative for injury, pain, and discharge, Neck: Negative for injury, pain, and swelling, Cardiovascular: Negative for chest pain, palpitations, and edema, Respiratory: Negative for shortness of breath, cough, wheezing, and pleuritic chest pain, Back: Negative for injury and pain, : Negative for injury, bleeding, discharge, and swelling, MS/Extremity: Negative for injury and deformity, Skin: Negative for injury, rash, and discoloration, Neuro: Negative for headache, weakness, numbness, tingling, and seizure, Psych: Negative for depression, anxiety, suicide ideation, homicidal ideation, and hallucinations, Allergy/Immunology: Negative for hives, rash, and allergies, Endocrine: Negative for neck swelling, polydipsia, polyuria, polyphagia, and marked weight changes, Hematologic/Lymphatic: Negative for swollen nodes, abnormal bleeding, and unusual bruising. 10:11 Abdomen/GI: Positive for nausea and vomiting, Negative for abdominal pain, diarrhea, abdominal distension, hematemesis. Exam: 10:11 Constitutional: This is a well developed, well nourished patient who is awake, alert, kav and in no acute distress. Head/Face: Normocephalic, atraumatic. Eyes: Pupils equal round and reactive to light, extra-ocular motions intact. Lids and lashes normal. Conjunctiva and sclera are non-icteric and not injected. Cornea within normal limits. Periorbital areas with no swelling, redness, or edema. ENT: Nares patent. No nasal discharge, no septal abnormalities noted. Tympanic membranes are normal and external auditory canals are clear. Oropharynx with no redness, swelling, or masses, exudates, or evidence of obstruction, uvula midline. Mucous membranes moist. Neck: Trachea midline, no thyromegaly or masses palpated, and no cervical lymphadenopathy. Supple, full range of motion without nuchal rigidity, or vertebral point tenderness. No Meningismus. Chest/axilla: Normal chest wall appearance and motion. Nontender with no deformity. No lesions are appreciated. Cardiovascular: Regular rate and rhythm with a normal S1 and S2. No gallops, murmurs, or rubs. Normal PMI, no JVD. No pulse deficits. Respiratory: Lungs have equal breath sounds bilaterally, clear to auscultation and percussion. No rales, rhonchi or wheezes noted. No increased work of breathing, no retractions or nasal flaring. Abdomen/GI: Soft, non-tender, with normal bowel sounds. No distension or tympany. No guarding or rebound. No evidence of tenderness throughout. Back: No spinal tenderness. No costovertebral tenderness. Full range of motion. Skin: Warm, dry with normal turgor. Normal color with no rashes, no lesions, and no evidence of cellulitis. MS/ Extremity: Pulses equal, no cyanosis. Neurovascular intact. Full, normal range of motion. Neuro: Awake and alert, GCS 15, oriented to person, place, time, and situation. Cranial nerves II-XII grossly intact. Motor strength 5/5 in all extremities. Sensory grossly intact. Cerebellar exam normal. Normal gait. Psych: Awake, alert, with orientation to person, place and time. Behavior, mood, and affect are within normal limits. 10:13 Abdomen/GI: Inspection: abdomen appears normal, Bowel sounds: normal, Palpation: soft, kav mild abdominal tenderness, in the umbilical area. Vital Signs: 10:00 BP 169 / 99; Pulse 66; Resp 18 S; Temp 97.8(O); Pulse Ox 100% on R/A; Weight 71.67 kg aa5 (R); Height 6 ft. 2 in. (187.96 cm) (R); Pain 9/10; 10:51 BP 175 / 99; Pulse 63; Resp 19; Pulse Ox 96% on R/A; tw2 11:43 BP 183 / 109; Pulse 70; Resp 17; Pulse Ox 95% ; tw2 11:57 BP 170 / 90; Pulse 77; Resp 17; Pulse Ox 95% on R/A; tw2 12:43 BP 170 / 86; Pulse 74; Resp 18; Pulse Ox 92% on R/A; mh5 13:37 BP 171 / 93; Pulse 78; Resp 18; Pulse Ox 95% on R/A; tw2 14:04 BP 164 / 85; Pulse 77; Resp 17; Pulse Ox 96% on R/A; tw2 10:00 Body Mass Index 20.29 (71.67 kg, 187.96 cm) aa5 MDM: 09:56 Medical screening is not applicable. [facility] 08/25 09:57 Order name: Amylase, Serum; Complete Time: 11:30 [facility] 08/25 11:30 Interpretation: Within normal limits: KAMRAN 95. 08/25 09:57 Order name: Basic Metabolic Panel; Complete Time: 11:30 08/25 11:30 Interpretation: Normal except: K 3.5. 08/25 09:57 Order name: CBC with Diff; Complete Time: 12:34 08/25 11:30 Interpretation: Normal except: RDW 18.1; MCH 26.1; MPV 7.4. 08/25 09:57 Order name: Creatinine for Radiology; Complete Time: 11:47 08/25 11:47 Interpretation: Within normal limits. 08/25 09:57 Order name: Hepatic Function; Complete Time: 11:31 08/25 11:31 Interpretation: Normal except: A/G 1.0. 08/25 09:57 Order name: Lipase; Complete Time: 11:31 08/25 11:31 Interpretation: Within normal limits. 08/25 09:57 Order name: Urine Microscopic Only; Complete Time: 12:34 08/25 12:35 Interpretation: Within normal limits. 08/25 11:30 Order name: Abdomen 1 View (KUB) XRAY; Complete Time: 13:55 v 08/25 13:55 Interpretation: No acute disease. 08/25 11:41 Order name: Urine Dipstick--Ancillary (enter results); Complete Time: 13:56 bd 08/25 13:56 Interpretation: Within normal limits. 08/25 12:29 Order name: Manual Differential; Complete Time: 12:34 EDMS 08/25 12:34 Interpretation: Normal except: MONO 12; EOS 4; META 1. 08/25 09:57 Order name: IV Saline Lock; Complete Time: 10:38 08/25 09:57 Order name: Labs collected and sent; Complete Time: 10:38 08/25 09:57 Order name: Urine Dipstick-Ancillary (obtain specimen); Complete Time: 11:42 08/25 11:48 Order name: VS Recheck; Complete Time: 11:59 kav Administered Medications: 10:28 Drug: hydrALAZINE 10 mg {Note: left chin.} Route: IV; Rate: bolus; Site: Other; tw2 11:43 Follow up: IV Status: Completed infusion tw2 10:45 Drug: Zofran 4 mg {Note: left chin.} Route: IVP; Site: Other; tw2 11:33 Follow up: Response: No adverse reaction tw2 10:47 Drug: NS 0.9% 1000 ml {Note: left ram.} Route: IV; Rate: 125 ml/hr; Site: Other; tw2 14:05 Follow up: Response: No adverse reaction; IV Status: Order to discontinue infusion tw2 11:32 Drug: Ativan 1 mg {Note: left ram.} Route: IVP; Site: Other; tw2 12:00 Follow up: Response: No adverse reaction tw2 Disposition: 15:17 Co-signature as Attending Physician, Gato Rodriguez MD I agree with the assessment and kdr plan of care. Disposition: 08/25/17 13:57 Discharged to Home. Impression: Lower abdominal pain, unspecified, Essential (primary) hypertension, Anxiety disorder, unspecified. - Condition is Stable. - Discharge Instructions: Abdominal Pain, Adult, Hypertension, [id number], Generalized Anxiety Disorder, DASH Eating Plan, Managing Your High Blood Pressure. - Prescriptions for Bentyl 20 mg Oral Tablet - take 1 tablet by ORAL route every 6 hours As needed; 20 tablet. - Medication Reconciliation Form, Thank You Letter, Antibiotic Education, Prescription Opioid Use form. - Follow up: Private Physician; When: 1 - 2 days; Reason: If symptoms return, Recheck today's complaints, Continuance of care, Re-evaluation by your physician. - Problem is new. - Symptoms have improved. Signatures: Dispatcher [employer] EDSD Gato Rodriguez MD MD kdr Vern, Katherine, MANGLE TENDER CLOTH MANGLE TENDER CLOTH Jerilyn Rodriguez, RN RN aa5 Juana Hanson RN RN tw2 Corrections: (The following items were deleted from the chart) 13:57 13:57 08/25/2017 13:57 Discharged to Home. Impression: Lower abdominal pain, kav unspecified; Essential (primary) hypertension. Condition is Stable. Forms are Medication Reconciliation Form, Thank You Letter, Antibiotic Education, Prescription Opioid Use. Follow up: Private Physician; When: 1 - 2 days; Reason: If symptoms return, Recheck today's complaints, Continuance of care, Re-evaluation by your physician. Problem is new. Symptoms have improved. kav 14:14 13:57 08/25/2017 13:57 Discharged to Home. Impression: Lower abdominal pain, tw2 unspecified; Essential (primary) hypertension; Anxiety disorder, unspecified. Condition is Stable. Forms are Medication Reconciliation Form, Thank You Letter, Antibiotic Education, Prescription Opioid Use. Follow up: Private Physician; When: 1 - 2 days; Reason: If symptoms return, Recheck today's complaints, Continuance of care, Re-evaluation by your physician. Problem is new. Symptoms have improved. kav
--- NOTE | 2017-08-25 13:58 | ER ---
Nurse's Notes [facility] Name: Deacon Howe Jr Age: 81 yrs Sex: Male : 1935 Arrival Date: 08/25/2017 Time: 09:55 Bed 17 Private MD: Diagnosis: Lower abdominal pain, unspecified;Essential (primary) hypertension;Anxiety disorder, unspecified Presentation: 08/25 09:55 Presenting complaint: Patient states: vomiting and generalized abd pain since aa5 approximately 1 hour ago. Transition of care: patient was not received from another setting of care. Onset of symptoms was August 25, 2017. Risk Assessment: Do you want to hurt yourself or someone else? Patient reports no desire to harm self or others. Initial Sepsis Screen: Does the patient meet any 2 criteria? No. Patient's initial sepsis screen is negative. Does the patient have a suspected source of infection? No. Patient's initial sepsis screen is negative. Care prior to arrival: Glucose check: 102. 09:55 Method Of Arrival: EMS: [facility] aa 09:55 Acuity: ALIN 3 aa5 Historical: - Allergies: 10:03 NKDA; aa5 - Home Meds: 11:46 Naproxen Oral as needed [Active]; tw2 - PMHx: 10:03 colon cancer; Hypertension; aa5 - PSHx: 10:03 Cholecystectomy; right hip; colon resection; aa5 - Immunization history:: Adult Immunizations unknown. - Social history:: Smoking status: Patient uses tobacco products, smokes one pack cigarettes per day. Patient uses alcohol, occasionally. - Ebola Screening: : No symptoms or risks identified at this time. - Family history:: not pertinent. - Hospitalizations: : No recent hospitalization is reported. - History obtained from: EMS. Screenin:28 Abuse screen: Denies threats or abuse. Nutritional screening: No deficits noted. aa5 Tuberculosis screening: No symptoms or risk factors identified. Fall Risk None identified. Assessment: 10:00 General: Appears comfortable, Behavior is calm, cooperative. Pain: Complains of pain in aa5 right upper quadrant, left upper quadrant, right lower quadrant and left lower quadrant Pain does not radiate. Pain currently is 4 out of 10 on a pain scale. Quality of pain is described as crampy, Pain began this morning Is continuous. Neuro: Level of Consciousness is awake, alert, obeys commands, Oriented to person, place, time, situation. Cardiovascular: Heart tones S1 S2 present Rhythm is regular. Respiratory: Airway is patent Respiratory effort is even, unlabored, Respiratory pattern is regular, symmetrical, Breath sounds are clear bilaterally. GI: Abdomen is flat, non-distended, Bowel sounds present X 4 quads. Abd is soft and non tender X 4 quads. Reports nausea, vomiting, Patient currently denies diarrhea. : No signs and/or symptoms were reported regarding the genitourinary system. EENT: No signs and/or symptoms were reported regarding the EENT system. Derm: Skin is dry, Skin is normal, Skin temperature is warm. Musculoskeletal: Range of motion: intact in all extremities. 10:45 Reassessment: Report given to MARYANNE Arias. aa5 10:52 Reassessment: Patient appears in no apparent distress at this time. Patient and/or tw2 family updated on plan of care and expected duration. Pain level reassessed. Patient is alert, oriented x 3, equal unlabored respirations, skin warm/dry/pink. pt states "can i have some orange juice now", pt instructed we are now waiting on lab results prior to PO fluids. 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 tw2 11:22 Reassessment: provider at bedside at this time. tw2 11:44 Reassessment: Patient appears in no apparent distress at this time. Patient and/or tw2 family updated on plan of care and expected duration. Pain level reassessed. Patient is alert, oriented x 3, equal unlabored respirations, skin warm/dry/pink. pt states "can i have some orange juice", pt instructed NPO at this time. 11:59 Reassessment: Patient appears in no apparent distress at this time. Patient and/or tw2 family updated on plan of care and expected duration. Pain level reassessed. Patient is alert, oriented x 3, equal unlabored respirations, skin warm/dry/pink. 13:38 Reassessment: Patient appears in no apparent distress at this time. Patient and/or tw2 family updated on plan of care and expected duration. Pain level reassessed. Patient is alert, oriented x 3, equal unlabored respirations, skin warm/dry/pink. 14:05 Reassessment: Patient appears in no apparent distress at this time. Patient and/or tw2 family updated on plan of care and expected duration. Pain level reassessed. Patient is alert, oriented x 3, equal unlabored respirations, skin warm/dry/pink. Vital Signs: 10:00 BP 169 / 99; Pulse 66; Resp 18 S; Temp 97.8(O); Pulse Ox 100% on R/A; Weight 71.67 kg aa5 (R); Height 6 ft. 2 in. (187.96 cm) (R); Pain 9/10; 10:51 BP 175 / 99; Pulse 63; Resp 19; Pulse Ox 96% on R/A; tw2 11:43 BP 183 / 109; Pulse 70; Resp 17; Pulse Ox 95% ; tw2 11:57 BP 170 / 90; Pulse 77; Resp 17; Pulse Ox 95% on R/A; tw2 12:43 BP 170 / 86; Pulse 74; Resp 18; Pulse Ox 92% on R/A; mh5 13:37 BP 171 / 93; Pulse 78; Resp 18; Pulse Ox 95% on R/A; tw2 14:04 BP 164 / 85; Pulse 77; Resp 17; Pulse Ox 96% on R/A; tw2 10:00 Body Mass Index 20.29 (71.67 kg, 187.96 cm) aa5 ED Course: 09:55 Patient arrived in ED. aa5 09:55 Dagmar Amor FNP [facility]. kav 09:55 Gato Rodriguez MD is Attending Physician. kav 09:55 Arm band placed on. aa5 09:55 Patient has correct armband on for positive identification. Placed in gown. Bed in low aa5 position. Call light in reach. Side rails up X2. 10:02 Triage completed. aa5 10:05 Jerilyn Monaco, RN is Primary Nurse. aa5 10:15 Missed attempt(s): 22 gauge in right forearm. Bleeding controlled, band aid applied, aa5 catheter tip intact. 10:17 Missed attempt(s): 22 gauge in right wrist. Bleeding controlled, band aid applied, aa5 catheter tip intact. 10:19 Missed attempt(s): 22 gauge in left forearm. Bleeding controlled, band aid applied, aa5 catheter tip intact. 10:41 Inserted saline lock: 20 gauge in left ,using aseptic technique. lower extremity. iw 10:41 Initial lab(s) drawn, by me, sent to lab. iw 10:48 Primary Nurse role handed off by Jerilyn Monaco RN tw2 10:48 Juana Hanson, RN is Primary Nurse. tw2 11:43 Urine Microscopic Only Sent. tw2 13:06 X-ray completed. Portable x-ray completed in exam room. Patient tolerated procedure kp1 well. 13:07 Abdomen 1 View (KUB) XRAY In Process Unspecified. EDMS 14:12 No provider procedures requiring assistance completed. IV discontinued, intact, tw2 bleeding controlled, No redness/swelling at site. Pressure dressing applied. Administered Medications: 10:28 Drug: hydrALAZINE 10 mg {Note: left chin.} Route: IV; Rate: bolus; Site: Other; tw2 11:43 Follow up: IV Status: Completed infusion tw2 10:45 Drug: Zofran 4 mg {Note: left chin.} Route: IVP; Site: Other; tw2 11:33 Follow up: Response: No adverse reaction tw2 10:47 Drug: NS 0.9% 1000 ml {Note: left ram.} Route: IV; Rate: 125 ml/hr; Site: Other; tw2 14:05 Follow up: Response: No adverse reaction; IV Status: Order to discontinue infusion tw2 11:32 Drug: Ativan 1 mg {Note: left ram.} Route: IVP; Site: Other; tw2 12:00 Follow up: Response: No adverse reaction tw2 Outcome: 13:57 Discharge ordered by MD. parr 14:13 Discharged to home ambulatory. tw2 14:13 Condition: stable 14:13 Discharge instructions given to patient, Instructed on discharge instructions, no drinking with medication, no driving heavy equipment, medication usage, Demonstrated understanding of instructions, follow-up care, medications, Prescriptions given X 1. 14:14 Patient left the ED. tw2 Signatures: Dispatcher [employer] EDMS Dagmar Amor, VISUAL MERCHANDISE MANAGER Sapphire Amanda RN RN Jerilyn Monaco, RN RN aa5 Juana Hanson RN RN [facility] Rebecca Marmolejo [facility] Kamala Gutierrez [facility]
[2017-08-25 14:21] VITALS: TEMP 97.8
[2017-08-25 14:28] VITALS: BP 164/85; O2SAT 96
== END 2017-08-25 14:14 | disposition home or self-care (01) ==
LOC: ER 09:53
DX: R10.30 Lower abdominal pain, unspecified (principal); F17.210 Nicotine dependence, cigarettes, uncomplicated; I10 Essential (primary) hypertension; Z85.038 Personal history of other malignant neoplasm of large intestine; F41.9 Anxiety disorder, unspecified
CPT/HCPCS: 36415; 74018; 80048; 80076; 82150; 83690; 85025; 96361; 96365; 96375; 99284; J0360; J2405; J7030; 81003; 81015

== ENCOUNTER 2017-08-28 09:28 | Emergency (ER) | payer OTHER ==
[2017-08-28 10:10] LABS: Absolute Lymphocytes (CBC) 0.7 K/uL (0.7-4.9); Absolute Monocytes 0.4 K/uL (0.1-1.3); Absolute Neutrophil 4.9 K/uL (1.8-8.0); Basophils % 0.5 % (0-1.3); Eosinophils % 0.3 % (0-4.4); Hematocrit 44.6 % (39.6-49.0); Lymphocytes % 11.4 % (15.3-44.8); MCH 26.1 pg (27.0-35.0); MCV 78.7 fL (80-100); MPV 7.3 fL (7.6-11.3); RBC Red Blood Cell Count 5.67 M/uL (4.33-5.43)
[2017-08-28 10:21] LABS: Potassium 3.4 mEq/L (3.6-5.0)
[2017-08-28 10:27] LABS: Albumin 3.9 g/dL (3.2-5.5); Bilirubin Direct 0.2 mg/dL (0-0.2); Bilirubin Total 0.9 mg/dL (0.3-1.2); Protein, Total 7.6 g/dL (6.0-8.3)
[2017-08-28] MEDS ORDERED: ONDANSETRON 4 MG/2 ML VIAL ONE ×2 (10:30→11:04)
[2017-08-28] MEDS ORDERED: HYDRALAZINE HCL 20 MG/ML VIAL ONE ×2 (10:30→11:04)
--- NOTE | 2017-08-28 11:31 | RAD REPORT ---
EXAM DESCRIPTION: CT - Abdomen Pelvis Wo Contrast - 08/28/2017 11:14 am CLINICAL HISTORY: Abdominal pain nausea and vomiting for 5 days COMPARISON: June 2016 TECHNIQUE: Computed axial tomography of the abdomen and pelvis was obtained. IV and oral contrast we re not requested. All CT scans are performed using dose optimization technique as appropriate and may include automated exposure control or mA/KV adjustment according to patient size. FINDINGS: The evaluation of solid organs, vessels and bowel is limited secondary to the lack of con trast administration. Right pleural calcifications are present. The gallbladder has been removed The liver, spleen, pancreas, and adrenal appear grossly normal. Bilateral renal masses are unchanged an nonspecific without IV contrast . There is no evidence of diverticulitis. The prostate gland is mildly to moderately enlarged. A righ t hip arthroplasty been performed IMPRESSION: No acute abnormality is displayed.
--- NOTE | 2017-08-28 11:35 | ER ---
Nurse's Notes [facility] Name: Deacon Howe Jr Age: 81 yrs Sex: Male : 1935 Arrival Date: 08/28/2017 Time: 09:30 Bed 4 Private MD: Diagnosis: Abdominal and pelvic pain Presentation: 08/28 09:33 Presenting complaint: EMS states: Pt reports abdominal pain, N/V x 5 days, seen here ph for same complaint 5 days ago, reports that symptoms improved after being seen but returned the next day, pt hypertensive at 190s/100s, all other vitals stable. Transition of care: patient was not received from another setting of care. Onset of symptoms was August 28, 2017. Risk Assessment: Do you want to hurt yourself or someone else? Patient reports no desire to harm self or others. Initial Sepsis Screen: Does the patient meet any 2 criteria? No. Patient's initial sepsis screen is negative. Does the patient have a suspected source of infection? No. Patient's initial sepsis screen is negative. Care prior to arrival: None. 09:33 Method Of Arrival: EMS: [employer] [facility] 09:33 Acuity: ALIN 3 ph Historical: - Allergies: 09:38 NKDA; ph - PMHx: 09:38 colon cancer; Hypertension; ph - PSHx: 09:38 Cholecystectomy; right hip; colon resection; ph - Immunization history:: Adult Immunizations unknown. - Social history:: Smoking status: Patient uses tobacco products, smokes one-half pack cigarettes per day. - Ebola Screening: : No symptoms or risks identified at this time. Screenin:38 Abuse screen: Denies threats or abuse. Denies injuries from another. Nutritional ph screening: No deficits noted. Tuberculosis screening: No symptoms or risk factors identified. Fall Risk None identified. Assessment: 09:39 General: Appears in no apparent distress. comfortable, slender, unkempt, Behavior is ph calm, cooperative, appropriate for age, Reports fever for > 3 days, feeling ill for > 3 days. Pain: Complains of pain in abdomen. Neuro: Level of Consciousness is awake, alert, obeys commands, Oriented to person, place, time, situation. Cardiovascular: Capillary refill < 3 seconds in bilateral fingers Patient's skin is warm and dry. Respiratory: Airway is patent Respiratory effort is even, unlabored, Respiratory pattern is regular, symmetrical. GI: Abdomen is flat, non-distended, Bowel sounds present X 4 quads. Abd is soft and non tender X 4 quads. Reports lower abdominal pain, upper abdominal pain, nausea, vomiting, Patient currently denies diarrhea. : No signs and/or symptoms were reported regarding the genitourinary system. Derm: Skin is intact, is fragile, is thin, Skin is pink, warm \T\ dry. Musculoskeletal: Circulation, motion, and sensation intact. Range of motion: intact in all extremities. 10:30 Reassessment: Patient appears in no apparent distress at this time. No changes from previously documented assessment. Patient and/or family updated on plan of care and expected duration. Pain level reassessed. Patient is alert, oriented x 3, equal unlabored respirations, skin warm/dry/pink. 11:26 Reassessment: Patient appears in no apparent distress at this time. Patient and/or ph family updated on plan of care and expected duration. Pain level reassessed. Patient is alert, oriented x 3, equal unlabored respirations, skin warm/dry/pink. Pt resting quietly, awaiting lab and CT results. Vital Signs: 09:36 BP 203 / 94; Pulse 68; Resp 16; Temp 97.8; Pulse Ox 100% on R/A; Weight 72.57 kg; ph Height 6 ft. 2 in. (187.96 cm); Pain 9/10; 10:30 BP 194 / 92; Pulse 69; Resp 18; Pulse Ox 99% on R/A; ph 11:26 BP 190 / 91; Pulse 73; Resp 18; Pulse Ox 98% on R/A; ph 11:57 BP 172 / 87; Pulse 69; Resp 18; Temp 97.9; Pulse Ox 99% on R/A; ph 09:36 Body Mass Index 20.54 (72.57 kg, 187.96 cm) ph ED Course: 09:30 Patient arrived in ED. em1 09:32 Callie Hernandez, MARYANNE is Primary Nurse. ph 09:33 Domenico Sierra PA is PHCP. jr8 09:33 Derian Corrales MD is Attending Physician. jr8 09:36 Triage completed. ph 09:38 Arm band placed on. ph 09:38 Patient has correct armband on for positive identification. Placed in gown. Bed in low ph position. Call light in reach. Side rails up X 1. laboratory monitor on. Pulse ox on. NIBP on. Warm blanket given. Pillow given. 10:00 Missed attempt(s): 18 gauge in right forearm. blood collected and sent to lab. Bleeding dh3 controlled, band aid applied, catheter tip intact. 10:50 Inserted saline lock: 20 gauge in left ,using aseptic technique. lower leg by nirav Ngo. 11:[address] via stretcher. 11:15 CT Abd/Pelvis - Without Cont In Process Unspecified. EDMS 11:27 No provider procedures requiring assistance completed. ph 11:57 IV discontinued, intact, bleeding controlled, No redness/swelling at site. Pressure ph dressing applied. Administered Medications: 11:25 Drug: Zofran 4 mg Route: IVP; Site: Other; ph 11:26 Drug: hydrALAZINE 10 mg Route: IV; Rate: calculated rate; Site: Other; ph Outcome: 11:34 Discharge ordered by MD. jones 11:57 Discharged to home via wheelchair. ph 11:57 Condition: good 11:57 Discharge instructions given to patient, Instructed on discharge instructions, follow up and referral plans. medication usage, Demonstrated understanding of instructions, follow-up care, medications, Prescriptions given X 2. 11:58 Patient left the ED. ph Signatures: Dispatcher [employer] EDMS Sravan Marmolejo em1 Tea Jo RN RN ss Roszak, Josh, PA PA jr8 Callie Hernandez RN RN ph Warren, Shannon sw Herrera, Deanna 3
--- NOTE | 2017-08-28 11:35 | EDPHYS ---
Physician Documentation [facility] Name: Deacon Howe Jr Age: 81 yrs Sex: Male : 1935 Arrival Date: 08/28/2017 Time: 09:30 Bed 4 Private MD: ED Physician Derian Corrales HPI: 08/28 10:40 This 81 yrs old Black Male presents to ER via EMS with complaints of Nausea, Vomiting, jr8 Abdominal Pain. 10:40 The patient presents with abdominal pain that is diffuse. Onset: The symptoms/episode jr8 began/occurred acutely, 2 day(s) ago. The symptoms do not radiate. Associated signs and symptoms: Pertinent positives: nausea and vomiting. The symptoms are described as shooting. Modifying factors: The symptoms are alleviated by nothing, the symptoms are aggravated by nothing. Severity of pain: At its worst the pain was moderate in the emergency department the pain is unchanged. The patient has not experienced similar symptoms in the past. The patient has been recently seen by a physician: The patient has been recently seen at the [facility] Emergency Department, for similar complaints labs were performed. Historical: - Allergies: 09:38 NKDA; ph - PMHx: 09:38 colon cancer; Hypertension; ph - PSHx: 09:38 Cholecystectomy; right hip; colon resection; ph - Immunization history:: Adult Immunizations unknown. - Social history:: Smoking status: Patient uses tobacco products, smokes one-half pack cigarettes per day. - Ebola Screening: : No symptoms or risks identified at this time. ROS: 10:40 Eyes: Negative for injury, pain, redness, and discharge, ENT: Negative for injury, jr8 pain, and discharge, Neck: Negative for injury, pain, and swelling, Cardiovascular: Negative for chest pain, palpitations, and edema, Respiratory: Negative for shortness of breath, cough, wheezing, and pleuritic chest pain, Back: Negative for injury and pain, MS/Extremity: Negative for injury and deformity, Skin: Negative for injury, rash, and discoloration, Neuro: Negative for headache, weakness, numbness, tingling, and seizure. 10:40 Abdomen/GI: Positive for abdominal pain, nausea and vomiting, Negative for diarrhea, constipation, abdominal cramps, abdominal distension, anorexia, dysphagia, hematemesis, black/tarry stool, rectal pain, rectal bleeding, bowel incontinence, flatulence. Exam: 10:40 Eyes: Pupils equal round and reactive to light, extra-ocular motions intact. Lids and jr8 lashes normal. Conjunctiva and sclera are non-icteric and not injected. Cornea within normal limits. Periorbital areas with no swelling, redness, or edema. ENT: Nares patent. No nasal discharge, no septal abnormalities noted. Tympanic membranes are normal and external auditory canals are clear. Oropharynx with no redness, swelling, or masses, exudates, or evidence of obstruction, uvula midline. Mucous membranes moist. Neck: Trachea midline, no thyromegaly or masses palpated, and no cervical lymphadenopathy. Supple, full range of motion without nuchal rigidity, or vertebral point tenderness. No Meningismus. Cardiovascular: Regular rate and rhythm with a normal S1 and S2. No gallops, murmurs, or rubs. Normal PMI, no JVD. No pulse deficits. Respiratory: Lungs have equal breath sounds bilaterally, clear to auscultation and percussion. No rales, rhonchi or wheezes noted. No increased work of breathing, no retractions or nasal flaring. Back: No spinal tenderness. No costovertebral tenderness. Full range of motion. Skin: Warm, dry with normal turgor. Normal color with no rashes, no lesions, and no evidence of cellulitis. MS/ Extremity: Pulses equal, no cyanosis. Neurovascular intact. Full, normal range of motion. Neuro: Awake and alert, GCS 15, oriented to person, place, time, and situation. Cranial nerves II-XII grossly intact. Motor strength 5/5 in all extremities. Sensory grossly intact. Cerebellar exam normal. Normal gait. 10:40 Abdomen/GI: Inspection: abdomen appears normal, Bowel sounds: active, all quadrants, Palpation: soft, in all quadrants, mild abdominal tenderness, in the abdomen diffusely, mass, is not appreciated, rebound tenderness, is not appreciated, voluntary guarding, is not appreciated, involuntary guarding, is not appreciated, no appreciated organomegaly, Indicators: McBurney's point is not tender, Ponce's sign is negative, Rovsing's sign is negative, Liver: no appreciated palpable abnormalities, tenderness, is not appreciated. Vital Signs: 09:36 BP 203 / 94; Pulse 68; Resp 16; Temp 97.8; Pulse Ox 100% on R/A; Weight 72.57 kg; ph Height 6 ft. 2 in. (187.96 cm); Pain 9/10; 10:30 BP 194 / 92; Pulse 69; Resp 18; Pulse Ox 99% on R/A; ph 11:26 BP 190 / 91; Pulse 73; Resp 18; Pulse Ox 98% on R/A; ph 11:57 BP 172 / 87; Pulse 69; Resp 18; Temp 97.9; Pulse Ox 99% on R/A; ph 09:36 Body Mass Index 20.54 (72.57 kg, 187.96 cm) ph MDM: 09:33 Patient medically screened. jr8 11:32 Differential diagnosis: bowel obstruction, diverticulitis, gastritis, Mesenteric jr8 ischemia or infarction, non-specific abd pain, pancreatitis, Peptic Ulcer Disease, Perf. Duodenal Ulcer, Perf. Gastric Ulcer. Data reviewed: vital signs, nurses notes, lab test result(s), radiologic studies, CT scan, and as a result, I will discharge patient. Data interpreted: Pulse oximetry: on room air is 98 %. Interpretation: normal. Counseling: I had a detailed discussion with the patient and/or guardian regarding: the historical points, exam findings, and any diagnostic results supporting the discharge/admit diagnosis, lab results, radiology results, the need for outpatient follow up, a family practitioner, to return to the emergency department if symptoms worsen or persist or if there are any questions or concerns that arise at home. 08/28 09:46 Order name: Basic Metabolic Panel; Complete Time: 10:35 08/28 09:46 Order name: CBC with Diff; Complete Time: 10:17 08/28 09:46 Order name: Creatinine for Radiology; Complete Time: 10:35 08/28 09:46 Order name: Hepatic Function; Complete Time: 10:35 08/28 09:46 Order name: Lipase; Complete Time: 10:35 08/28 09:46 Order name: UDS; Complete Time: 12:47 08/28 09:46 Order name: IV Saline Lock; Complete Time: 11:24 08/28 09:46 Order name: Labs collected and sent; Complete Time: 10:20 08/28 09:46 Order name: Urine Dipstick-Ancillary (obtain specimen); Complete Time: 11:20 8 08/28 10:36 Order name: CT Abd/Pelvis - Without Cont; Complete Time: 11:32 8 08/28 11:21 Order name: Urine Dipstick--Ancillary (enter results) em1 08/28 11:22 Order name: Urine Dipstick-Ancillary; Complete Time: 12:47 EDMS Administered Medications: 11:25 Drug: Zofran 4 mg Route: IVP; Site: Other; ph 11:26 Drug: hydrALAZINE 10 mg Route: IV; Rate: calculated rate; Site: Other; ph Disposition: 19:02 Co-signature as Attending Physician, Derian Corrales MD. Disposition: 08/28/17 11:34 Discharged to Home. Impression: Abdominal and pelvic pain. - Condition is Stable. - Discharge Instructions: Abdominal Pain, Adult. - Prescriptions for Bentyl 20 mg Oral Tablet - take 1 tablet by ORAL route every 6 hours As needed; 20 tablet. Zofran 4 mg Oral Tablet - take 1 tablet by ORAL route every 12 hours As needed; 20 tablet. - Medication Reconciliation Form, Thank You Letter, Antibiotic Education, Prescription Opioid Use form. - Follow up: Private Physician; When: 2 - 3 days; Reason: Recheck today's complaints, Continuance of care, Re-evaluation by your physician. - Problem is new. - Symptoms have improved. Signatures: Dispatcher [employer] EDMS Domenico Sierra PA PA jr8 Callie Hernandez RN RN ph Starr, Gregory, MD MD Corrections: (The following items were deleted from the chart) 11:58 11:34 08/28/2017 11:34 Discharged to Home. Impression: Abdominal and pelvic pain. ph Condition is Stable. Forms are Medication Reconciliation Form, Thank You Letter, Antibiotic Education, Prescription Opioid Use. Follow up: Private Physician; When: 2 - 3 days; Reason: Recheck today's complaints, Continuance of care, Re-evaluation by your physician. Problem is new. Symptoms have improved. jr8
[2017-08-28 11:37] LABS: Barbiturates NEGATIVE (NEGATIVE); Benzodiazepines NEGATIVE (NEGATIVE); Cocaine POSITIVE (NEGATIVE); METHAMPHETAM NEGATIVE (NEGATIVE); Opiates NEGATIVE (NEGATIVE); Phencyclidine NEGATIVE (NEGATIVE); THC Cannibis NEGATIVE (NEGATIVE)
[2017-08-28 11:52] LABS: Urine Blood NEGATIVE (NEG); Urine Glucose NEGATIVE (NEG); Urine Protein 2+ (NEG)
[2017-08-28 12:52] VITALS: BP 172/87; TEMP 97.9; O2SAT 99
== END 2017-08-28 11:58 | disposition home or self-care (01) ==
LOC: ER 09:28
DX: R10.2 Pelvic and perineal pain (principal); R11.2 Nausea with vomiting, unspecified; I10 Essential (primary) hypertension; F17.210 Nicotine dependence, cigarettes, uncomplicated; Z85.038 Personal history of other malignant neoplasm of large intestine
CPT/HCPCS: 36415; 74176; 80048; 80076; 80307 ×9; 81003; 83690; 85025; 96374; 96375; 99285; J0360 ×2; J2405 ×2

== ENCOUNTER 2017-08-31 13:50 | Emergency (ER) | payer OTHER ==
[2017-08-31] MEDS ORDERED: KETOROLAC 30 MG/ML INJ ONE (14:23)
[2017-08-31] MEDS ORDERED: NA CHLORIDE 0.9% 500 ML ONE (14:23)
[2017-08-31 14:49] LABS: Absolute Lymphocytes (CBC) 1.3 K/uL (0.7-4.9); Absolute Monocytes 0.7 K/uL (0.1-1.3); Absolute Neutrophil 3.7 K/uL (1.8-8.0); Basophils % 0.7 % (0-1.3); Hematocrit 47.3 % (39.6-49.0); Lymphocytes % 23.3 % (15.3-44.8); MCH 25.7 pg (27.0-35.0); MCV 80.5 fL (80-100); MPV 7.4 fL (7.6-11.3); Monocytes % 11.2 % (3.3-12.3); RBC Red Blood Cell Count 5.88 M/uL (4.33-5.43)
[2017-08-31 15:03] LABS: Albumin 3.3 g/dL (3.4-5.0); Bilirubin Direct 0.2 mg/dL (0-0.2); Bilirubin Total 0.6 mg/dL (0.2-1.0); Potassium 3.7 mmol/L (3.5-5.1); Protein, Total 7.2 g/dL (6.4-8.2)
--- NOTE | 2017-08-31 15:08 | RAD REPORT ---
EXAM DESCRIPTION: CT - Abdomen Pelvis Wo Contrast - 08/31/2017 2:48 pm CLINICAL HISTORY: Abdominal pain colon cancer COMPARISON: August 29, 2007 TECHNIQUE: Computed axial tomography of the abdomen and pelvis was obtained. IV and oral contrast we re not requested. All CT scans are performed using dose optimization technique as appropriate and may include automated exposure control or mA/KV adjustment according to patient size. FINDINGS: The evaluation of solid organs, vessels and bowel is limited secondary to the lack of con trast administration. Right pleural calcifications are again demonstrated The liver, spleen, pancreas, and adrenals appear grossly normal. Bilateral low-density renal masses a re stable. Contrast from previous examination is present within the right colon and rectum. There is no evidence of diverticulitis. The prostate gland is moderately enlarged. Right hip arthroplasties been performed IMPRESSION: No acute abnormality is displayed.
--- NOTE | 2017-08-31 16:10 | ER ---
Nurse's Notes [facility] Name: Deacon Howe Jr Age: 81 yrs Sex: Male : 1935 Arrival Date: 08/31/2017 Time: 13:52 Bed 16 Private MD: Diagnosis: Abdominal and pelvic pain Presentation: 08/31 13:53 Presenting complaint: EMS states: pt c/o abdominal pain, pts eyes is dilated but denies tw2 drug use, vs stable. Transition of care: patient was not received from another setting of care. Onset of symptoms was August 31, 2017. Risk Assessment: Do you want to hurt yourself or someone else? Patient reports no desire to harm self or others. Initial Sepsis Screen: Does the patient meet any 2 criteria? No. Patient's initial sepsis screen is negative. Does the patient have a suspected source of infection? No. Patient's initial sepsis screen is negative. Care prior to arrival: None. 13:53 Method Of Arrival: EMS: [facility] tw 13:53 Acuity: ALIN 3 tw Historical: - Allergies: 13:57 NKDA; tw2 - Home Meds: 13:57 Naproxen Oral as needed [Active]; tw2 - PMHx: 13:57 colon cancer; Hypertension; tw2 - PSHx: 13:57 Cholecystectomy; colon resection; tw2 - Immunization history:: Adult Immunizations up to date. - Social history:: Smoking status: Patient/guardian denies using tobacco. - Ebola Screening: : Patient denies travel to an Ebola-affected area in the 21 days before illness onset. Screenin:55 Abuse screen: Denies threats or abuse. Nutritional screening: No deficits noted. tw2 Tuberculosis screening: No symptoms or risk factors identified. Fall Risk None identified. Assessment: 13:57 General: Appears in no apparent distress. slender, unkempt, Behavior is appropriate for tw2 age. Pain: Complains of pain in abdomen. Neuro: Level of Consciousness is awake, alert, obeys commands, Oriented to person, place, time, situation. Cardiovascular: Denies chest pain, shortness of breath, Heart tones S1 S2 Capillary refill < 3 seconds Patient's skin is warm and dry. Respiratory: Airway is patent Respiratory effort is even, unlabored, Respiratory pattern is regular, symmetrical, Breath sounds are clear bilaterally. GI: Bowel sounds present X 4 quads. Abd is soft X 4 quads Reports lower abdominal pain, upper abdominal pain. : No signs and/or symptoms were reported regarding the genitourinary system. EENT: No signs and/or symptoms were reported regarding the EENT system. Derm: Skin is intact, is healthy with good turgor, Skin temperature is warm. Musculoskeletal: Range of motion: intact in all extremities. 14:57 Reassessment: Patient appears in no apparent distress at this time. No changes from tw2 previously documented assessment. Patient and/or family updated on plan of care and expected duration. Pain level reassessed. Patient is alert, oriented x 3, equal unlabored respirations, skin warm/dry/pink. 16:03 Reassessment: Patient appears in no apparent distress at this time. No changes from tw2 previously documented assessment. Patient and/or family updated on plan of care and expected duration. Pain level reassessed. Patient is alert, oriented x 3, equal unlabored respirations, skin warm/dry/pink. Vital Signs: 13:54 BP 145 / 84; Pulse 68; Resp 19; Temp 97.8(O); Pulse Ox 99% on R/A; Weight 63.5 kg; tw2 Height 6 ft. 2 in. (187.96 cm); Pain 8/10; 14:57 BP 140 / 86; Pulse 71; Resp 17; Pulse Ox 97% on R/A; tw2 16:04 BP 189 / 62; Pulse 62; Resp 17; Pulse Ox 99% on R/A; tw2 13:54 Body Mass Index 17.97 (63.50 kg, 187.96 cm) tw2 ED Course: 13:52 Patient arrived in ED. tw2 13:54 Triage completed. tw2 13:54 Arm band placed on. tw2 13:55 Bed in low position. Side rails up X2. granite fabricator on. Pulse ox on. NIBP on. Warm tw2 blanket given. 13:56 Gato Rodriguez MD is Attending Physician. kdr 14:19 Juana Hanson RN is Primary Nurse. tw2 14:30 Inserted saline lock: 22 gauge in left antecubital area, using aseptic technique. Blood tw2 collected. 14:38 No provider procedures requiring assistance completed. IV discontinued, intact, tw2 bleeding controlled, No redness/swelling at site. Pressure dressing applied, infiltration noted at this iv site. 14:[address] via stretcher. nj 14:47 CT completed. Patient tolerated procedure well. Patient moved back from CT. nj 14:47 Abdomen In Process Unspecified. EDMS 15:35 Urine Microscopic Only Sent. tw2 Administered Medications: 14:30 Drug: NS 0.9% 500 ml Route: IV; Rate: bolus; Site: left antecubital; tw2 14:37 Follow up: IV Intake: 10ml ; order to HOLD at this time, d/t no IV access, line tw2 infiltrated shortly after ns started 14:37 Follow up: IV Intake: 10ml tw2 14:30 Drug: TORadol 15 mg Route: IVP; Site: left antecubital; tw2 15:15 Follow up: Response: No adverse reaction tw2 Intake: 14:37 IV: 10ml; Total: 10ml. tw2 14:37 IV: 10ml; Total: 20ml. tw2 Outcome: 16:10 Discharge ordered by . kdr 16:16 Discharged to home via wheelchair. tw2 16:16 Condition: stable 16:16 Discharge instructions given to patient, Instructed on discharge instructions, follow up and referral plans. medication usage, Demonstrated understanding of instructions, follow-up care, medications, Prescriptions given X 3. 16:16 Patient left the ED. tw2 Signatures: Dispatcher [employer] EDMS Gato Rodriguez MD MD kdr Wise, Tara RN RN tw2 Nav Marquez
--- NOTE | 2017-08-31 16:10 | EDPHYS ---
Physician Documentation [facility] Name: Deacon Howe Jr Age: 81 yrs Sex: Male : 1935 Arrival Date: 08/31/2017 Time: 13:52 Bed 16 Private MD: ED Physician Gato Rodriguez HPI: 08/31 14:14 This 81 yrs old Black Male presents to ER via EMS with complaints of Abdominal Pain. kdr 14:14 The patient presents with abdominal pain that is diffuse. Onset: The symptoms/episode kdr began/occurred last night. The symptoms do not radiate. Associated signs and symptoms: Pertinent positives: nausea, vomiting, and diarrhea, Pertinent negatives: anorexia, constipation, dysuria, fever, hematuria, shortness of breath. The symptoms are described as achy, burning, crampy, vague. Modifying factors: The symptoms are alleviated by nothing, the symptoms are aggravated by nothing. Severity of pain: At its worst the pain was mild in the emergency department the pain is unchanged. The patient has experienced similar episodes in the past, chronically. The patient has not recently seen a physician. Historical: - Allergies: 13:57 NKDA; tw2 - Home Meds: 13:57 Naproxen Oral as needed [Active]; tw2 - PMHx: 13:57 colon cancer; Hypertension; tw2 - PSHx: 13:57 Cholecystectomy; colon resection; tw2 - Immunization history:: Adult Immunizations up to date. - Social history:: Smoking status: Patient/guardian denies using tobacco. - Ebola Screening: : Patient denies travel to an Ebola-affected area in the 21 days before illness onset. ROS: 14:14 Constitutional: Negative for fever, chills, and weight loss, Eyes: Negative for injury, kdr pain, redness, and discharge, ENT: Negative for injury, pain, and discharge, Neck: Negative for injury, pain, and swelling, Cardiovascular: Negative for chest pain, palpitations, and edema, Respiratory: Negative for shortness of breath, cough, wheezing, and pleuritic chest pain, Back: Negative for injury and pain, : Negative for injury, bleeding, discharge, and swelling, MS/Extremity: Negative for injury and deformity, Skin: Negative for injury, rash, and discoloration, Neuro: Negative for headache, weakness, numbness, tingling, and seizure activity. Psych: Negative for depression, anxiety, suicide ideation, homicidal ideation, and hallucinations, Allergy/Immunology: Negative for hives, rash, and allergies, Endocrine: Negative for neck swelling, polydipsia, polyuria, polyphagia, and marked weight changes, Hematologic/Lymphatic: Negative for swollen nodes, abnormal bleeding, and unusual bruising. 14:14 Abdomen/GI: Positive for abdominal pain, nausea and vomiting, abdominal cramps, Negative for constipation, abdominal distension, anorexia, dysphagia, hematemesis, black/tarry stool, rectal pain, rectal bleeding. Exam: 14:14 Constitutional: This is a well developed, well nourished patient who is awake, alert, kdr and in mild to moderate distress. Head/Face: Normocephalic, atraumatic. Eyes: Pupils equal round and reactive to light, extra-ocular motions intact. Lids and lashes normal. Conjunctiva and sclera are non-icteric and not injected. Cornea within normal limits. Periorbital areas with no swelling, redness, or edema. Neck: Trachea midline, no thyromegaly or masses palpated, and no cervical lymphadenopathy. Supple, full range of motion without nuchal rigidity, or vertebral point tenderness. No Meningismus. Chest/axilla: Normal chest wall appearance and motion. Nontender with no deformity. No lesions are appreciated. Cardiovascular: Regular rate and rhythm with a normal S1 and S2. No gallops, murmurs, or rubs. Normal PMI, no JVD. No pulse deficits. Respiratory: Lungs have equal breath sounds bilaterally, clear to auscultation and percussion. No rales, rhonchi or wheezes noted. No increased work of breathing, no retractions or nasal flaring. Back: No spinal tenderness. No costovertebral tenderness. Full range of motion. Skin: Warm, dry with normal turgor. Normal color with no rashes, no lesions, and no evidence of cellulitis. MS/ Extremity: Pulses equal, no cyanosis. Neurovascular intact. Full, normal range of motion. Neuro: Awake and alert, GCS 15, oriented to person, place, time, and situation. Cranial nerves II-XII grossly intact. Motor strength 5/5 in all extremities. Sensory grossly intact. Cerebellar exam normal. Normal gait. Psych: Awake, alert, with orientation to person, place and time. Behavior, mood, and affect are within normal limits. 14:14 Abdomen/GI: Inspection: abdomen appears normal, Bowel sounds: active, all quadrants, Palpation: soft, mild abdominal tenderness, in all quadrants. Vital Signs: 13:54 BP 145 / 84; Pulse 68; Resp 19; Temp 97.8(O); Pulse Ox 99% on R/A; Weight 63.5 kg; tw2 Height 6 ft. 2 in. (187.96 cm); Pain 8/10; 14:57 BP 140 / 86; Pulse 71; Resp 17; Pulse Ox 97% on R/A; tw2 16:04 BP 189 / 62; Pulse 62; Resp 17; Pulse Ox 99% on R/A; tw2 13:54 Body Mass Index 17.97 (63.50 kg, 187.96 cm) tw2 MDM: 14:14 Data reviewed: vital signs, nurses notes, lab test result(s), radiologic studies. kdr Counseling: I had a detailed discussion with the patient and/or guardian regarding: the historical points, exam findings, and any diagnostic results supporting the discharge/admit diagnosis, lab results, radiology results. 16:10 Patient medically screened. [facility] 08/31 14:10 Order name: Basic Metabolic Panel [facility] 08/31 14:10 Order name: CBC with Diff [facility] 08/31 14:10 Order name: Creatinine for Radiology [facility] 08/31 14:10 Order name: Hepatic Function [facility] 08/31 14:10 Order name: Lipase [facility] 08/31 14:10 Order name: Urine Microscopic Only [facility] 08/31 14:10 Order name: IV Saline Lock; Complete Time: 14:38 [facility] 08/31 14:10 Order name: Labs collected and sent; Complete Time: 14:38 [facility] 08/31 14:10 Order name: Urine Dipstick-Ancillary (obtain specimen); Complete Time: 15:22 [facility] 08/31 14:39 Order name: Abdomen EDMS 08/31 16:00 Order name: Urine Dipstick--Ancillary (enter results) bd Administered Medications: 14:30 Drug: NS 0.9% 500 ml Route: IV; Rate: bolus; Site: left antecubital; tw2 14:37 Follow up: IV Intake: 10ml ; order to HOLD at this time, d/t no IV access, line tw2 infiltrated shortly after ns started 14:37 Follow up: IV Intake: 10ml tw2 14:30 Drug: TORadol 15 mg Route: IVP; Site: left antecubital; tw2 15:15 Follow up: Response: No adverse reaction tw2 Disposition: 08/31/17 16:10 Discharged to Home. Impression: Abdominal and pelvic pain. - Condition is Stable. - Discharge Instructions: Abdominal Pain, Adult, [id number]. - Prescriptions for Bentyl 20 mg Oral Tablet - take 1 tablet by ORAL route every 6 hours As needed; 20 tablet. Pepcid 20 mg Oral Tablet - take 1 tablet by ORAL route every 12 hours for 5 days; 10 tablet. Tramadol 50 mg Oral Tablet - take 1 tablet by ORAL route every 8 hours as needed; 12 tablet. - Medication Reconciliation Form, Thank You Letter, Antibiotic Education, Prescription Opioid Use form. - Follow up: Private Physician; When: 2 - 3 days; Reason: If symptoms return, Further diagnostic work-up, Recheck today's complaints, Continuance of care, Re-evaluation by your physician. - Problem is new. - Symptoms have improved. Signatures: Dispatcher [employer] [facility] Gato Rodriguez MD MD kdr Juana Hanson RN RN tw2 Corrections: (The following items were deleted from the chart) 14:39 14:10 Abdomen Pelvis W Con+CT.RAD.BRZ ordered. [facility] 16:16 16:10 08/31/2017 16:10 Discharged to Home. Impression: Abdominal and pelvic pain. tw2 Condition is Stable. Forms are Medication Reconciliation Form, Thank You Letter, Antibiotic Education, Prescription Opioid Use. Follow up: Private Physician; When: 2 - 3 days; Reason: If symptoms return, Further diagnostic work-up, Recheck today's complaints, Continuance of care, Re-evaluation by your physician. Problem is new. Symptoms have improved. kdr
[2017-08-31 16:25] VITALS: TEMP 97.8
[2017-08-31 16:27] VITALS: BP 189/62; O2SAT 99
[2017-08-31 17:00] LABS: Urine Bacteria <20 /HPF (NONE SEEN); Urine Culture Reflex Order NOT NEEDED; Urine RBC <5 /HPF (NONE SEEN)
[2017-08-31 17:00] LABS: Urine Blood NEGATIVE (NEG); Urine Glucose NEGATIVE (NEG); Urine Protein NEGATIVE (NEG); Urine pH 5.5 (5.0-7.0)
== END 2017-08-31 16:16 | disposition home or self-care (01) ==
LOC: ER 13:50
DX: R10.2 Pelvic and perineal pain (principal); I10 Essential (primary) hypertension; Z85.038 Personal history of other malignant neoplasm of large intestine
CPT/HCPCS: 36415; 74176; 80048; 80076; 81003; 81015; 83690; 85025; 96374; 99285

== ENCOUNTER 2017-10-02 13:07 | Emergency (ER) | payer OTHER ==
[2017-10-02 13:48] LABS: Absolute Lymphocytes (CBC) 1.3 K/uL (0.7-4.9); Absolute Monocytes 0.6 K/uL (0.1-1.3); Absolute Neutrophil 4.8 K/uL (1.8-8.0); Basophils % 0.9 % (0-1.3); Eosinophils % 0.7 % (0-4.4); Hematocrit 46.2 % (39.6-49.0); Lymphocytes % 18.6 % (15.3-44.8); MCH 26.6 pg (27.0-35.0); MCV 80.4 fL (80-100); MPV 7.3 fL (7.6-11.3); Monocytes % 9.2 % (3.3-12.3); RBC Red Blood Cell Count 5.75 M/uL (4.33-5.43)
[2017-10-02 14:06] LABS: Albumin 3.3 g/dL (3.4-5.0); Bilirubin Direct 0.2 mg/dL (0-0.2); Bilirubin Total 0.5 mg/dL (0.2-1.0); Potassium 4.2 mmol/L (3.5-5.1); Protein, Total 7.3 g/dL (6.4-8.2)
[2017-10-02] MEDS ORDERED: NA CHLORIDE 0.9% 1,000 ML ONE (14:19)
--- NOTE | 2017-10-02 14:57 | ER ---
Nurse's Notes [facility] Name: Deacon Howe Jr Age: 81 yrs Sex: Male : 1935 Arrival Date: 10/02/2017 Time: 13:15 Bed 26 Private MD: Diagnosis: Chest pain, unspecified;Unspecified abdominal pain Presentation: 10/02 13:15 Presenting complaint: EMS states: Pt c/o abdominal pain to the left side, states pt tl3 says he just "doesn't feel right". Transition of care: patient was not received from another setting of care. Onset of symptoms was October 02, 2017. Risk Assessment: Do you want to hurt yourself or someone else? Patient reports no desire to harm self or others. Initial Sepsis Screen: Does the patient meet any 2 criteria? No. Patient's initial sepsis screen is negative. Does the patient have a suspected source of infection? No. Patient's initial sepsis screen is negative. Care prior to arrival: None. 13:15 Method Of Arrival: EMS: [facility] tl3 13:15 Acuity: ALIN 3 tl3 Triage Assessment: 14:08 General: Appears uncomfortable, slender, Behavior is calm, cooperative, appropriate for tl3 age. Pain: Complains of pain in left upper quadrant and left lower quadrant. EENT: No deficits noted. No signs and/or symptoms were reported regarding the EENT system. Neuro: No deficits noted. Level of Consciousness is awake, alert, obeys commands, Oriented to person, place, time, situation, Appropriate for age. Cardiovascular: Heart tones S1 S2 present Patient's skin is warm and dry. Respiratory: Airway is patent Respiratory effort is even, unlabored, Respiratory pattern is regular, symmetrical, Breath sounds are clear bilaterally. GI: Abdomen is flat. : No signs and/or symptoms were reported regarding the genitourinary system. Urine is clear. Derm: No signs and/or symptoms reported regarding the dermatologic system. Musculoskeletal: No signs and/or symptoms reported regarding the musculoskeletal system. Historical: - Allergies: 14:08 NKDA; tl3 - PMHx: 14:08 colon cancer; Hypertension; tl3 - PSHx: 14:08 Hip Replacement; Cholecystectomy; tl3 - Immunization history:: Adult Immunizations up to date. - Social history:: Smoking status: unknown. - Ebola Screening: : No symptoms or risks identified at this time. - Family history:: not pertinent. - Hospitalizations: : No recent hospitalization is reported. Screenin:12 Abuse screen: Denies threats or abuse. Nutritional screening: No deficits noted. tl3 Tuberculosis screening: No symptoms or risk factors identified. Fall Risk None identified. Assessment: 14:12 Reassessment: No changes from previously documented assessment. Patient is alert, tl3 oriented x 3, equal unlabored respirations, skin warm/dry/pink. General:. 15:28 Reassessment: Patient appears in no apparent distress at this time. No changes from tl3 previously documented assessment. Patient and/or family updated on plan of care and expected duration. Pain level reassessed. Patient is alert, oriented x 3, equal unlabored respirations, skin warm/dry/pink. Vital Signs: 14:08 BP 156 / 93; Pulse 70; Resp 18; Temp 97.7(O); Pulse Ox 99% on R/A; tl3 14:12 BP 150 / 112; Pulse 74; Resp 18; Pulse Ox 98% ; tl3 15:28 BP 150 / 112; Pulse 78; Resp 18; Pulse Ox 99% on R/A; tl3 ED Course: 13:15 Patient arrived in ED. iw 13:17 Sp Herron MD is Attending Physician. rn 13:50 EKG done, by ED staff, reviewed by Sp Herron MD. jb1 14:03 Ramila Ragsdale, RN is Primary Nurse. tl3 14:05 Triage completed. tl3 14:08 Arm band placed on right wrist. tl3 14:12 No provider procedures requiring assistance completed. Inserted saline lock: 20 gauge tl3 in right forearm, using aseptic technique. Blood collected. 14:12 Patient has correct armband on for positive identification. Placed in gown. Bed in low tl3 position. cardiac monitor technician on. Pulse ox on. NIBP on. Warm blanket given. PO fluids given. Administered Medications: 14:15 Drug: NS 0.9% 500 ml Route: IV; Rate: bolus; Site: right forearm; Delivery: Primary tl3 tubing; 15:29 Follow up: IV Status: Completed infusion; IV Intake: 500ml tl3 Intake: 15:29 IV: 500ml; Total: 500ml. tl3 Outcome: 14:56 Discharge ordered by . rn 15:28 Discharged to tl3 15:28 Condition: stable 15:28 Discharge instructions given to patient, Instructed on discharge instructions, follow up and referral plans. medication usage, Demonstrated understanding of instructions, follow-up care, medications, Prescriptions given X 15:31 Patient left the ED. tl3 Signatures: Cristiano Lawrence jb1 Sapphire Benitez RN RN iw Nieto, Roman, MD MD rn Lowrey, Tammy, RN RN tl3
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
[2017-10-02 15:34] VITALS: TEMP 97.7
[2017-10-02 15:35] VITALS: BP 150/112
[2017-10-02 15:37] VITALS: O2SAT 99
[2017-10-02 15:37] LABS: Urine Blood NEGATIVE (NEG); Urine Glucose NEGATIVE (NEG); Urine Protein NEGATIVE (NEG); Urine pH 5.5 (5.0-7.0)
--- NOTE | 2017-10-04 07:46 | EKG ---
Test Date: 2017-10-02 Test Time: 13:41:18 Ship Steward: PARAS MEASUREMENT RESULTS: Intervals: Rate: 77 DE: 168 QRSD: 82 QT: 374 QTc: 423 [place]rell: P: 67 DE: 168 QRS: 79 T: 69 INTERPRETIVE STATEMENTS: Normal sinus rhythm Normal ECG Compared to ECG 08/06/2017 08:14:41 No significant changes Electronically Signed On 10-04-17 07:45:04 CDT by Maurice Martin
== END 2017-10-02 15:31 | disposition home or self-care (01) ==
LOC: ER 13:07
DX: R07.9 Chest pain, unspecified (principal); R10.9 Unspecified abdominal pain; I10 Essential (primary) hypertension
CPT/HCPCS: 36415; 80048; 80076; 81003; 82550; 83690; 84484; 85025; 93005; 96360; 99284; J7030

== ENCOUNTER 2017-11-03 05:29 | Emergency (ER) | payer OTHER ==
[2017-11-03 06:15] LABS: Urine Blood NEGATIVE (NEG); Urine Glucose NEGATIVE (NEG); Urine Protein NEGATIVE (NEG); Urine Specific Gravity 1.015 (1.005-1.030); Urine pH 6.5 (5.0-7.0)
[2017-11-03 06:24] LABS: Urine Bacteria <20 /HPF (NONE SEEN); Urine Culture Reflex Order NOT NEEDED; Urine RBC NONE SEEN /HPF (NONE SEEN)
[2017-11-03 06:26] LABS: Barbiturates NEGATIVE (NEGATIVE); Benzodiazepines NEGATIVE (NEGATIVE); Cocaine NEGATIVE (NEGATIVE); METHAMPHETAM POSITIVE (NEGATIVE); Methadone NEGATIVE (NEGATIVE); Opiates NEGATIVE (NEGATIVE); Phencyclidine NEGATIVE (NEGATIVE); THC Cannibis NEGATIVE (NEGATIVE)
[2017-11-03 06:37] LABS: Albumin 3.4 g/dL (3.4-5.0); Bilirubin Direct 0.2 mg/dL (0-0.2); Bilirubin Total 0.6 mg/dL (0.2-1.0); Protein, Total 7.7 g/dL (6.4-8.2)
[2017-11-03 08:03] LABS: Absolute Lymphocytes (CBC) 1.5 K/uL (0.7-4.9); Absolute Monocytes 0.6 K/uL (0.1-1.3); Absolute Neutrophil 2.9 K/uL (1.8-8.0); Basophils % 0.9 % (0-1.3); Eosinophils % 1.2 % (0-4.4); Hematocrit 45.2 % (39.6-49.0); Lymphocytes % 29.4 % (15.3-44.8); MCH 26.6 pg (27.0-35.0); MCV 80.7 fL (80-100); MPV 7.5 fL (7.6-11.3); Monocytes % 11.6 % (3.3-12.3)
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
--- NOTE | 2017-11-03 08:08 | EDPHYS ---
Physician Documentation [facility] Name: Deacon Howe Jr Age: 81 yrs Sex: Male : 1935 Arrival Date: 11/03/2017 Time: 05:30 Bed 17 Private MD: ED Physician Sp Herron HPI: 11/03 05:42 This 81 yrs old Black Male presents to ER via EMS with unknown complaint. tw4 05:42 This 81 yrs old Black Male presents to ER via EMS with complaints of ab pain. tw4 05:42 The patient presents with abdominal pain. Onset: The symptoms/episode began/occurred tw4 today. The symptoms do not radiate. Associated signs and symptoms: none. The symptoms are described as dull. Modifying factors: The symptoms are alleviated by nothing, the symptoms are aggravated by alcohol. Severity of pain: At its worst the pain was mild in the emergency department the pain is unchanged. The patient has experienced similar episodes in the past, chronically. Historical: - Allergies: 05:35 NKDA; bb - Home Meds: 05:35 None [Active]; bb - PMHx: 05:35 colon cancer; Hypertension; bb - PSHx: 05:35 Hip Replacement; Cholecystectomy; bb - Immunization history:: Adult Immunizations unknown. - Social history:: Smoking status: Patient uses tobacco products, smokes one pack cigarettes per day. Patient uses alcohol, on a daily basis. street drugs, cocaine. - Ebola Screening: : Patient negative for fever greater than or equal to 101.5 degrees Fahrenheit, and additional compatible Ebola Virus Disease symptoms Patient denies exposure to infectious person Patient denies travel to an Ebola-affected area in the 21 days before illness onset. ROS: 05:42 Constitutional: Negative for fever, chills, and weight loss, Eyes: Negative for injury, tw4 pain, redness, and discharge, Neck: Negative for injury, pain, and swelling, Cardiovascular: Negative for chest pain, palpitations, and edema, Respiratory: Negative for shortness of breath, cough, wheezing, and pleuritic chest pain, Back: Negative for injury and pain, MS/Extremity: Negative for injury and deformity. 05:42 Abdomen/GI: Positive for abdominal pain, Negative for nausea and vomiting, nausea, vomiting, and diarrhea, nausea, diarrhea, black/tarry stool, rectal bleeding. Exam: 05:42 Constitutional: This is a well developed, well nourished patient who is awake, alert, tw4 and in no acute distress. Eyes: Pupils equal round and reactive to light, extra-ocular motions intact. Lids and lashes normal. Conjunctiva and sclera are non-icteric and not injected. Cornea within normal limits. Periorbital areas with no swelling, redness, or edema. Chest/axilla: Normal chest wall appearance and motion. Nontender with no deformity. No lesions are appreciated. Cardiovascular: Regular rate and rhythm with a normal S1 and S2. No gallops, murmurs, or rubs. Normal PMI, no JVD. No pulse deficits. Respiratory: Lungs have equal breath sounds bilaterally, clear to auscultation and percussion. No rales, rhonchi or wheezes noted. No increased work of breathing, no retractions or nasal flaring. Back: No spinal tenderness. No costovertebral tenderness. Full range of motion. 05:42 MS/ Extremity: Pulses equal, no cyanosis. Neurovascular intact. Full, normal range of motion. Neuro: Awake and alert, GCS 15, oriented to person, place, time, and situation. Cranial nerves II-XII grossly intact. Motor strength 5/5 in all extremities. Sensory grossly intact. Cerebellar exam normal. Normal gait. 05:42 Abdomen/GI: Inspection: abdomen appears normal, Bowel sounds: diminished, Palpation: mild abdominal tenderness, in all quadrants. Vital Signs: 05:35 BP 154 / 90; Pulse 70; Resp 16 S; Temp 97.7(O); Pulse Ox 96% on R/A; Weight 79.38 kg bb (R); Height 6 ft. 2 in. (187.96 cm) (R); Pain 9/10; 06:32 BP 186 / 100; Pulse 64; Resp 16; Pulse Ox 96% on R/A; ao 07:32 BP 148 / 81; Pulse 78; Resp 16; Pulse Ox 100% on R/A; dh3 07:59 BP 174 / 93; Pulse 59; Resp 17; Pulse Ox 96% on R/A; tw2 05:35 Body Mass Index 22.47 (79.38 kg, 187.96 cm) bb MDM: 05:32 Patient medically screened. tw4 08:07 Differential diagnosis: gastritis, gastroesophageal reflux disease, non-specific abd rn pain, pancreatitis. Data reviewed: vital signs, nurses notes, lab test result(s), and as a result, I will discharge patient. Counseling: I had a detailed discussion with the patient and/or guardian regarding: the historical points, exam findings, and any diagnostic results supporting the discharge/admit diagnosis, lab results, the need for outpatient follow up, to return to the emergency department if symptoms worsen or persist or if there are any questions or concerns that arise at home. Special discussion: Based on the patient's Hx, exam, and Dx evaluation, there is no indication for emergent surgery or inpatient Tx. It is understood by the patient/guardian that if the Sx's persist or worsen they need to return immediately for re-evaluation. I discussed with the patient/guardian in detail that at this point there is no indication for admission to the hospital. It is understood, however, that if the symptoms persist or worsen the patient needs to return immediately for re-evaluation. ED course: Pt without pain, sleeping through beginning of shift, woke up, ate breakfast, tolerated well, will dc home as bloodwork normal, counseled again to stop using drugs.. 11/03 05:33 Order name: Amylase, Serum; Complete Time: 07:11/03 05:33 Order name: Basic Metabolic Panel; Complete Time: 07:11/03 05:33 Order name: CBC with Diff; Complete Time: 08:11/03 05:33 Order name: Creatinine for Radiology; Complete Time: 06:34 11/03 05:33 Order name: Hepatic Function; Complete Time: 07:11/03 05:33 Order name: Lipase; Complete Time: 07:11/03 05:33 Order name: Urine Microscopic Only; Complete Time: 06:25 11/03 05:33 Order name: IV Saline Lock; Complete Time: 06:05 11/03 05:33 Order name: Labs collected and sent; Complete Time: 06:06 11/03 05:33 Order name: Urine Dipstick-Ancillary (obtain specimen); Complete Time: 05:56 11/03 05:33 Order name: Urine Drug Screen; Complete Time: 06:29 11/03 05:56 Order name: Urine Dipstick--Ancillary (enter results); Complete Time: 06:25 oe 11/03 07:41 Order name: Diet Heart Healthy; Complete Time: 07:41 bd 11/03 07:42 Order name: Labs - recollect needed; Complete Time: 07:56 bd Administered Medications: No medications were administered Disposition: 11/03/17 08:08 Discharged to Home. Impression: Unspecified abdominal pain. - Condition is Stable. - Discharge Instructions: Abdominal Pain, Adult. - Medication Reconciliation Form, Thank You Letter, Antibiotic Education, Prescription Opioid Use form. - Follow up: Private Physician; When: As needed; Reason: Recheck today's complaints, Re-evaluation by your physician. - Problem is new. - Symptoms have improved. Signatures: Dispatcher [employer] EDMS Breanna Ma Brenda, RN RN bb Sp Herron MD MD rn Ortiz, Alex RN Juana Ng RN RN tw2 Jim Colby MD MD tw4 Corrections: (The following items were deleted from the chart) 08:27 08:08 11/03/2017 08:08 Discharged to Home. Impression: Unspecified abdominal pain. tw2 Condition is Stable. Forms are Medication Reconciliation Form, Thank You Letter, Antibiotic Education, Prescription Opioid Use. Follow up: Private Physician; When: As needed; Reason: Recheck today's complaints, Re-evaluation by your physician. Problem is new. Symptoms have improved. rn
[2017-11-03 08:36] VITALS: TEMP 97.7
[2017-11-03 08:39] VITALS: BP 174/93; O2SAT 96
== END 2017-11-03 08:27 | disposition home or self-care (01) ==
LOC: ER 05:29
DX: R10.9 Unspecified abdominal pain (principal); I10 Essential (primary) hypertension; F17.210 Nicotine dependence, cigarettes, uncomplicated; Z85.038 Personal history of other malignant neoplasm of large intestine
CPT/HCPCS: 36415; 80048; 80076; 80307; 81003; 81015; 82150; 83690; 85025; 99284

== ENCOUNTER 2017-12-02 10:58 | Emergency (ER) | payer OTHER ==
--- NOTE | 2017-12-02 12:53 | RAD REPORT ---
EXAM DESCRIPTION: Viet Single View12/02/2017 12:29 pm CLINICAL HISTORY: Cough COMPARISON: July 2017 FINDINGS: Right pleural calcifications are unchanged. Right lung volume loss is present The lungs appear clear of acute infiltrate. The heart is normal size IMPRESSION: No acute abnormalities displayed
[2017-12-02 13:31] LABS: Absolute Monocytes 0.4 K/uL (0.1-1.3); Absolute Neutrophil 4.6 K/uL (1.8-8.0); Basophils % 0.6 % (0-1.3); Eosinophils % 0.7 % (0-4.4); Hematocrit 40.1 % (39.6-49.0); MCH 26.7 pg (27.0-35.0); MCV 82.2 fL (80-100); MPV 7.9 fL (7.6-11.3); Monocytes % 6.6 % (3.3-12.3); RBC Red Blood Cell Count 4.88 M/uL (4.33-5.43)
[2017-12-02 13:38] LABS: Potassium 4.1 mmol/L (3.5-5.1)
--- NOTE | 2017-12-02 14:32 | ER ---
Nurse's Notes [facility] Name: Deacon Howe Jr Age: 82 yrs Sex: Male : 1935 Arrival Date: 12/02/2017 Time: 11:03 Bed 18 Private MD: Diagnosis: Cough;Weakness Presentation: 12/02 11:13 Presenting complaint: Patient states: pain to left side of neck x 3 days ago. Pt states aa5 "every time I spit and when I blow my nose there is green stuff coming out". Transition of care: patient was not received from another setting of care. Onset of symptoms was November 2017. Risk Assessment: Do you want to hurt yourself or someone else? Patient reports no desire to harm self or others. Initial Sepsis Screen: Does the patient meet any 2 criteria? No. Patient's initial sepsis screen is negative. Does the patient have a suspected source of infection? No. Patient's initial sepsis screen is negative. Care prior to arrival: None. 11:13 Method Of Arrival: Ambulatory aa5 11:13 Acuity: ALIN 3 aa5 Historical: - Allergies: 11:14 NKDA; aa5 - PMHx: 11:14 colon cancer; Hypertension; aa5 - PSHx: 11:14 Hip Replacement; Cholecystectomy; aa5 - Immunization history:: Adult Immunizations not up to date. - Social history:: Smoking status: Patient uses tobacco products, smokes one-half pack cigarettes per day. - Ebola Screening: : No symptoms or risks identified at this time. Screenin:00 Abuse screen: Denies threats or abuse. Denies injuries from another. Nutritional aj screening: No deficits noted. Tuberculosis screening: No symptoms or risk factors identified. Fall Risk None identified. Assessment: 12:00 Reassessment: Patient is eating turkey sandwich, chips, fruit cup, and soda, per aj request. Also provided with urinal and 2 warm blankets, per request. General: Appears in no apparent distress. comfortable, Behavior is calm, cooperative, appropriate for age. Pain: Denies pain. Neuro: Level of Consciousness is awake, alert, obeys commands, Oriented to person, place, time, situation, Appropriate for age. Cardiovascular: Capillary refill < 3 seconds in bilateral fingers. Respiratory: Airway is patent Respiratory effort is even, unlabored, Respiratory pattern is regular, symmetrical, Breath sounds are clear bilaterally. GI: No signs and/or symptoms were reported involving the gastrointestinal system. Patient appears to have good appetite and to be tolerating food and liquids. No complaints of nausea. Derm: No signs and/or symptoms reported regarding the dermatologic system. Skin is intact, is healthy with good turgor, Skin is pink, warm \\T\\ dry. normal. 12:14 Reassessment: Patient sleeping in bed in NAD. aj 14:51 Reassessment: pt ambulated out to nurse's station, requesting an apple juice before iw leaving, juice given, pt then requests to be wheeled outside to wait for bus, pt wheeled outside, placed bicycle beside pt, pt states he'll ride his bike to the bus stop, bus pass given. Vital Signs: 11:15 BP 137 / 83; Pulse 80; Resp 18 S; Temp 98.6(TE); Pulse Ox 99% on R/A; Weight 73.48 kg aa5 (R); Height 6 ft. 1 in. (185.42 cm) (R); Pain 9/10; 13:49 BP 134 / 81; Pulse 79; Resp 19; Pulse Ox 99% on R/A; aj 11:15 Body Mass Index 21.37 (73.48 kg, 185.42 cm) aa5 ED Course: 11:03 Patient arrived in ED. mr 11:14 Triage completed. aa5 11:14 Arm band placed on. aa5 11:23 Kasia Martines, RN is Primary Nurse. aj 11:35 Gato Rodriguez MD is Attending Physician. kdr 12:00 Patient has correct armband on for positive identification. Placed in gown. Bed in low aj position. Call light in reach. Side rails up X 1. Pulse ox on. NIBP on. 12:27 X-ray completed. Portable x-ray completed in exam room. Patient tolerated procedure ml well. 12:29 CXR XRAY In Process Unspecified. EDMS 14:51 No provider procedures requiring assistance completed. Patient did not have IV access iw during this emergency room visit. Administered Medications: No medications were administered Outcome: 14:31 Discharge ordered by . kdr 14:51 Discharged to home via wheelchair. iw 14:51 Condition: good 14:51 Discharge instructions given to patient, Instructed on discharge instructions, follow up and referral plans. Demonstrated understanding of instructions, follow-up care. 14:53 Patient left the ED. iw Signatures: Dispatcher [employer] Kasia Verdin RN RN aj Rittger, Kevin, MD MD kdr Rivera, Maria mr Williams, Irene, Veronica Strong RN, Audri, RN RN aa5 Corrections: (The following items were deleted from the chart) 13:52 13:49 Inserted saline lock: 20 gauge in right antecubital area, using aseptic aj technique. Blood collected. aj
--- NOTE | 2017-12-02 14:32 | EDPHYS ---
Physician Documentation [facility] Name: Deacon Howe Jr Age: 82 yrs Sex: Male : 1935 Arrival Date: 12/02/2017 Time: 11:03 Bed 18 Private MD: ED Physician Gato Rodriguez HPI: 12/02 18:48 This 82 yrs old Black Male presents to ER via Ambulatory with complaints of Flank Pain, kdr Congestion. 18:48 The patient or guardian reports cough, that is intermittent, described as mild, with kdr productive sputum, that is green, difficulty breathing, possible FB, sleep apnea. Onset: The symptoms/episode began/occurred gradually, 3 day(s) ago. Modifying factors: The symptoms are alleviated by nothing. the symptoms are aggravated by nothing. Associated signs and symptoms: Pertinent positives: Shoulder and left flank pain - mild from falling. Severity of symptoms: At their worst the symptoms were mild in the emergency department the symptoms are unchanged. The patient has experienced similar episodes in the past, chronically. The patient has been recently seen by a physician: the patient's primary care provider. Historical: - Allergies: 11:14 NKDA; aa5 - PMHx: 11:14 colon cancer; Hypertension; aa5 - PSHx: 11:14 Hip Replacement; Cholecystectomy; aa5 - Immunization history:: Adult Immunizations not up to date. - Social history:: Smoking status: Patient uses tobacco products, smokes one-half pack cigarettes per day. - Ebola Screening: : No symptoms or risks identified at this time. ROS: 18:48 Constitutional: Negative for fever, chills, and weight loss, Eyes: Negative for injury, kdr pain, redness, and discharge, Neck: Negative for injury, pain, and swelling, Cardiovascular: Negative for chest pain, palpitations, and edema, Abdomen/GI: Negative for abdominal pain, nausea, vomiting, diarrhea, and constipation, Back: Negative for injury and pain, : Negative for injury, bleeding, discharge, and swelling, MS/Extremity: Negative for injury and deformity, Skin: Negative for injury, rash, and discoloration, Neuro: Negative for headache, weakness, numbness, tingling, and seizure activity. Psych: Negative for depression, anxiety, suicide ideation, homicidal ideation, and hallucinations, Allergy/Immunology: Negative for hives, rash, and allergies, Endocrine: Negative for neck swelling, polydipsia, polyuria, polyphagia, and marked weight changes, Hematologic/Lymphatic: Negative for swollen nodes, abnormal bleeding, and unusual bruising. 18:48 Respiratory: Positive for cough, with green sputum, dyspnea on exertion, shortness of breath, wheezing, Negative for hemoptysis, orthopnea, pleurisy. Exam: 18:48 Constitutional: This is a well developed, well nourished patient who is awake, alert, kdr and in no acute distress. Head/Face: Normocephalic, atraumatic. Eyes: Pupils equal round and reactive to light, extra-ocular motions intact. Lids and lashes normal. Conjunctiva and sclera are non-icteric and not injected. Cornea within normal limits. Periorbital areas with no swelling, redness, or edema. Neck: Trachea midline, no thyromegaly or masses palpated, and no cervical lymphadenopathy. Supple, full range of motion without nuchal rigidity, or vertebral point tenderness. No Meningismus. Chest/axilla: Normal chest wall appearance and motion. Nontender with no deformity. No lesions are appreciated. Cardiovascular: Regular rate and rhythm with a normal S1 and S2. No gallops, murmurs, or rubs. Normal PMI, no JVD. No pulse deficits. Abdomen/GI: Soft, non-tender, with normal bowel sounds. No distension or tympany. No guarding or rebound. No evidence of tenderness throughout. Back: No spinal tenderness. No costovertebral tenderness. Full range of motion. Skin: Warm, dry with normal turgor. Normal color with no rashes, no lesions, and no evidence of cellulitis. MS/ Extremity: Pulses equal, no cyanosis. Neurovascular intact. Full, normal range of motion. Neuro: Awake and alert, GCS 15, oriented to person, place, time, and situation. Cranial nerves II-XII grossly intact. Motor strength 5/5 in all extremities. Sensory grossly intact. Cerebellar exam normal. Normal gait. Psych: Awake, alert, with orientation to person, place and time. Behavior, mood, and affect are within normal limits. 18:48 Respiratory: mild respiratory distress is noted, Respirations: normal, Breath sounds: rales, that are mild, are located in both bases. Vital Signs: 11:15 BP 137 / 83; Pulse 80; Resp 18 S; Temp 98.6(TE); Pulse Ox 99% on R/A; Weight 73.48 kg aa5 (R); Height 6 ft. 1 in. (185.42 cm) (R); Pain 9/10; 13:49 BP 134 / 81; Pulse 79; Resp 19; Pulse Ox 99% on R/A; aj 11:15 Body Mass Index 21.37 (73.48 kg, 185.42 cm) aa5 MDM: 14:31 Patient medically screened. kdr 18:48 Data reviewed: vital signs, nurses notes, lab test result(s), radiologic studies. kdr Counseling: I had a detailed discussion with the patient and/or guardian regarding: the historical points, exam findings, and any diagnostic results supporting the discharge/admit diagnosis, lab results, radiology results, the need for outpatient follow up. 12/02 11:49 Order name: CBC with Diff; Complete Time: 14:29 kdr 12/02 11:49 Order name: Chem 7; Complete Time: 14:29 kdr 12/02 11:49 Order name: CXR XRAY; Complete Time: 13:23 kdr Administered Medications: No medications were administered Disposition: 12/02/17 14:31 Discharged to Home. Impression: Cough, Weakness. - Condition is Stable. - Discharge Instructions: Cough, Adult, [id number], Weakness, [id number]. - Medication Reconciliation Form, Thank You Letter form. - Follow up: Private Physician; When: 2 - 3 days; Reason: If symptoms return, Further diagnostic work-up, Recheck today's complaints, Continuance of care, Re-evaluation by your physician. - Problem is an acute exacerbation. - Symptoms have improved. Signatures: Dispatcher [employer] EDUT Gato Rodriguez MD MD kdr Sapphire Benitez RN RN Jerilyn Monaco RN RN aa5 Corrections: (The following items were deleted from the chart) 14:53 14:31 12/02/2017 14:31 Discharged to Home. Impression: Cough; Weakness. Condition is iw Stable. Forms are Medication Reconciliation Form, Thank You Letter, Antibiotic Education, Prescription Opioid Use. Follow up: Private Physician; When: 2 - 3 days; Reason: If symptoms return, Further diagnostic work-up, Recheck today's complaints, Continuance of care, Re-evaluation by your physician. Problem is an acute exacerbation. Symptoms have improved. kdr
[2017-12-02 15:30] VITALS: TEMP 98.6; O2SAT 99
[2017-12-02 15:31] VITALS: BP 134/81
== END 2017-12-02 14:53 | disposition home or self-care (01) ==
LOC: ER 10:58
DX: R53.1 Weakness (principal); I10 Essential (primary) hypertension; F17.210 Nicotine dependence, cigarettes, uncomplicated; Z85.038 Personal history of other malignant neoplasm of large intestine
CPT/HCPCS: 36415; 71045; 80048; 85025; 99283

== ENCOUNTER 2018-01-25 22:10 | Emergency (ER) | payer OTHER ==
[2018-01-25 22:36] LABS: Urine Blood NEGATIVE (NEG); Urine Glucose NEGATIVE (NEG); Urine Protein NEGATIVE (NEG); Urine Specific Gravity 1.015 (1.005-1.030)
--- NOTE | 2018-01-26 00:23 | ER ---
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 Transition of care: patient was not received from another setting of care. Onset of symptoms was January 25, 2018 at 20:00. Risk Assessment: Do you want to hurt yourself or someone else? Patient reports no desire to harm self or others. Initial Sepsis Screen: Does the patient meet any 2 criteria? No. Patient's initial sepsis screen is negative. Does the patient have a suspected source of infection? No. Patient's initial sepsis screen is negative. Care prior to arrival: None. 22:18 Method Of Arrival: EMS: [facility] lp1 22:18 Acuity: ALIN 4 lp1 Historical: - Allergies: 22:19 NKDA; lp1 - Home Meds: 22:19 None [Active]; lp1 - PMHx: 22:19 colon cancer; Hypertension; lp1 - Immunization history:: Adult Immunizations unknown. - Social history:: Smoking status: Patient uses tobacco products, smokes one-half pack cigarettes per day. - Ebola Screening: : No symptoms or risks identified at this time. Screenin:41 Abuse screen: Denies threats or abuse. Denies injuries from another. Nutritional lp1 screening: No deficits noted. Tuberculosis screening: No symptoms or risk factors identified. Fall Risk None identified. Assessment: 22:30 General: Appears in no apparent distress. unkempt, Behavior is agitated. Pain: lp1 Complains of pain in lumbar area, left low back and right low back Pain currently is 9 out of 10 on a pain scale. Quality of pain is described as aching. Neuro: Level of Consciousness is awake, alert, obeys commands, Oriented to person, place, situation. Cardiovascular: Patient's skin is warm and dry. Respiratory: No deficits noted. GI: No deficits noted. : Denies burning with urination. EENT: No signs and/or symptoms were reported regarding the EENT system. Derm: Skin is intact, Skin is dry, Skin is normal. Musculoskeletal: Circulation, motion, and sensation intact. 23:35 Reassessment: Patient appears in no apparent distress at this time. Patient resting, lp1 eyes closed, respirations unlabored. 01/26 00:11 Reassessment: Patient states continued pain to lower back; aware of pending CT results. lp1 00:39 Reassessment: Patient states no ride home, lives at [facility] and no way to return lp1 back. 01:00 Reassessment: Unable to contact [facility] for patient to return; Patient given 1 sandwich and juice at this time. 05:26 Reassessment: Patient is alert, oriented x 3, equal unlabored respirations, skin bb warm/dry/pink. pt requested [facility] be called [phone]. [facility] contacted and they will send ride for pt. 05:54 Reassessment: Patient is alert, oriented x 3, equal unlabored respirations, skin bb warm/dry/pink. pt 's transportation arrived and pt given juice and crackers per his request pt assisted to exit via wheelchair. Vital Signs: 01/25 22:19 BP 156 / 81; Pulse 69; Resp 18; Temp 97.5(O); Pulse Ox 99% on R/A; Weight 72.57 kg; lp1 Height 6 ft. 2 in. (187.96 cm); Pain 9/10; 01/26 00:35 BP 144 / 86; Pulse 67; Resp 18; Pulse Ox 100% on R/A; lp1 01/25 22:19 Body Mass Index 20.54 (72.57 kg, 187.96 cm) lp1 ED Course: 01/25 22:11 Patient arrived in ED. al2 22:17 Mary Steiner, RN is Primary Nurse. lp1 22:19 Triage completed. lp1 22:20 Arm band placed on left wrist. lp1 22:27 Derian Corrales MD is Attending Physician. gs 22:30 Patient has correct armband on for positive identification. lp1 22:[address] vr 22:57 CT Stone Protocol In Process Unspecified. EDMS 01/26 00:35 No provider procedures requiring assistance completed. Patient did not have IV access lp1 during this emergency room visit. Administered Medications: 00:30 Drug: Motrin 600 mg Route: PO; lp1 00:34 Follow up: Response: Medication administered at discharge. lp1 Outcome: 00:22 Discharge ordered by . mamadou 00:35 Discharged to home lp1 00:35 Condition: good 00:35 Discharge instructions given to patient, Instructed on discharge instructions, follow up and referral plans. Demonstrated understanding of instructions, follow-up care. 05:57 Patient left the ED. bb Signatures: Dispatcher [employer] EDMS Marely Dowell RN RN bb Davis, Victoria vr Pena, Laura, RN RN lp1 Derian Corrales MD MD gs Love, Aylin rawls Corrections: (The following items were deleted from the chart) 01/25 22:20 22:18 Presenting complaint: EMS states: Back pain that began 2 hours ago; Denies any lp1 trauma, states back pain began after being at the [place] [facility] tonight lp1 23:40 23:39 General: Appears in no apparent distress. unkempt, Behavior is agitated, lp1 lp1 23:40 23:39 Pain: Complains of pain in lumbar area, left low back and right low back Pain lp1 currently is 9 out of 10 on a pain scale. Quality of pain is described as aching, lp1 :40 23:39 Neuro: Level of Consciousness is awake, alert, obeys commands, Oriented to lp1 person, place, situation, lp1 23:40 23:39 Cardiovascular: Patient's skin is warm and dry. lp1 lp1 :40 23:39 Respiratory: No deficits noted. lp1 lp1 :40 23:39 GI: No deficits noted. lp1 lp1 :40 23:39 : Denies burning with urination, lp1 lp1 23:40 23:39 EENT: No signs and/or symptoms were reported regarding the EENT system. lp1 lp1 :40 23:39 Derm: Skin is intact, Skin is dry, Skin is normal, lp1 lp1 :40 23:39 Musculoskeletal: Circulation, motion, and sensation intact. lp1 lp1
--- NOTE | 2018-01-26 00:23 | EDPHYS ---
Physician Documentation [facility] Name: Deacon Howe Jr Age: 82 yrs Sex: Male : 1935 Arrival Date: 01/25/2018 Time: 22:11 Bed 25 Private MD: ED Physician Derian Corrales HPI: 01/26 01:11 This 82 yrs old Black Male presents to ER via EMS with complaints of Back Pain. gs 01:11 The patient presents with pain that is acute. The symptoms are located in the low back. gs Onset: The symptoms/episode began/occurred 1 week(s) ago. The pain does not radiate. Associated signs and symptoms: Pertinent negatives: dysuria, incontinence, urinary retention. Modifying factors: The patient symptoms are alleviated by nothing, the patient symptoms are aggravated by movement. Severity of symptoms: At their worst the symptoms were moderate, in the emergency department the symptoms are unchanged. Historical: - Allergies: 01/25 22:19 NKDA; lp1 - Home Meds: 22:19 None [Active]; lp1 - PMHx: 22:19 colon cancer; Hypertension; lp1 - Immunization history:: Adult Immunizations unknown. - Social history:: Smoking status: Patient uses tobacco products, smokes one-half pack cigarettes per day. - Ebola Screening: : No symptoms or risks identified at this time. ROS: 01/26 01:11 All other systems are negative. gs Exam: 01:11 Head/Face: Normocephalic, atraumatic. Eyes: Pupils equal round and reactive to light, gs extra-ocular motions intact. Lids and lashes normal. Conjunctiva and sclera are non-icteric and not injected. Cornea within normal limits. Periorbital areas with no swelling, redness, or edema. ENT: Nares patent. No nasal discharge, no septal abnormalities noted. Tympanic membranes are normal and external auditory canals are clear. Oropharynx with no redness, swelling, or masses, exudates, or evidence of obstruction, uvula midline. Mucous membranes moist. Neck: Trachea midline, no thyromegaly or masses palpated, and no cervical lymphadenopathy. Supple, full range of motion without nuchal rigidity, or vertebral point tenderness. No Meningismus. Chest/axilla: Normal chest wall appearance and motion. Nontender with no deformity. No lesions are appreciated. Cardiovascular: Regular rate and rhythm with a normal S1 and S2. No gallops, murmurs, or rubs. Normal PMI, no JVD. No pulse deficits. Respiratory: Lungs have equal breath sounds bilaterally, clear to auscultation and percussion. No rales, rhonchi or wheezes noted. No increased work of breathing, no retractions or nasal flaring. Abdomen/GI: Soft, non-tender, with normal bowel sounds. No distension or tympany. No guarding or rebound. No evidence of tenderness throughout. Back: No spinal tenderness. No costovertebral tenderness. Full range of motion. Skin: Warm, dry with normal turgor. Normal color with no rashes, no lesions, and no evidence of cellulitis. MS/ Extremity: Pulses equal, no cyanosis. Neurovascular intact. Full, normal range of motion. Neuro: Awake and alert, GCS 15, oriented to person, place, time, and situation. Cranial nerves II-XII grossly intact. Motor strength 5/5 in all extremities. Sensory grossly intact. Cerebellar exam normal. Normal gait. 01:11 Constitutional: The patient appears alert, awake. Vital Signs: 01/25 22:19 BP 156 / 81; Pulse 69; Resp 18; Temp 97.5(O); Pulse Ox 99% on R/A; Weight 72.57 kg; lp1 Height 6 ft. 2 in. (187.96 cm); Pain /10; 01/26 00:35 BP 144 / 86; Pulse 67; Resp 18; Pulse Ox 100% on R/A; lp1 01/25 22:19 Body Mass Index 20.54 (72.57 kg, 187.96 cm) lp1 MDM: 01/25 22:42 Patient medically screened. 01/26 00:17 Data reviewed: vital signs, nurses notes. 01:11 Differential diagnosis: Abdominal Aortic Aneurysm Fatigue Ligament Injury sprain. Response to treatment: the patient's symptoms have mildly improved after treatment, and as a result, I will discharge patient. 01/25 22:31 Order name: Urine Dipstick--Ancillary (enter results); Complete Time: 23:47 em1 01/25 22:43 Order name: CT Stone Protocol gs Administered Medications: 00:30 Drug: Motrin 600 mg Route: PO; lp1 00:34 Follow up: Response: Medication administered at discharge. lp1 Disposition: 01/26/18 00:22 Discharged to Home. 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 - Condition is Stable. - Discharge Instructions: Back Exercises. - Medication Reconciliation Form, Thank You Letter, Antibiotic Education, Prescription Opioid Use form. - Follow up: Private Physician; When: 2 - 3 days; Reason: Re-evaluation by your physician. Signatures: Dispatcher [employer] EDMarely Olguin RN RN bb Mary Steiner RN RN lp1 Derian Corrales MD MD gs Corrections: (The following items were deleted from the chart) 05:57 00:22 01/26/2018 00:22 Discharged to Home. Impression: Spondylosis without myelopathy bb or radiculopathy, lumbar region. Condition is Stable. Forms are Medication Reconciliation Form, Thank You Letter, Antibiotic Education, Prescription Opioid Use. Follow up: Private Physician; When: 2 - 3 days; Reason: Re-evaluation by your physician. gs
[2018-01-26] MEDS ORDERED: IBUPROFEN 200 MG TAB PO ONE (00:32)
[2018-01-26] MEDS ORDERED: IBUPROFEN 400 MG TAB ONE (00:32)
[2018-01-26 06:03] VITALS: TEMP 97.5
[2018-01-26 06:04] VITALS: BP 144/86; O2SAT 100
--- NOTE | 2018-01-26 08:46 | RAD REPORT ---
EXAM DESCRIPTION: CT - Stone Protocol - 01/26/2018 4:00 am CLINICAL HISTORY: Flank pain. FLANK PAIN COMPARISON: Abdomen Pelvis Wo Contrast dated 08/31/2017; Abdomen Pelvis Wo Contrast dated 08/29/19 18 TECHNIQUE: Axial images were obtained without oral or IV contrast. Lack of contrast limits solid org an and vascular assessment. The [id number] spans the entirety of the system partially obscuring uppermost abdomen and lung bases. Coronal reformatted images were obtained and reviewed. All CT scans are performed using dose optimization technique as appropriate and may include automated exposure control or mA/KV adjustment according to patient size. FINDINGS: Calcified pleural thickening is present in the inferior right hemithorax, unchanged. Linea r subsegmental atelectasis is present in the right lung base. Imaged portions of the liver and spleen show no suspicious findings on non-contrast imaging.Cholecyst ectomy clips. The pancreas and adrenal glands are normal. No pathologic lymphadenopathy in the abdome n or pelvis. Several low-density cystic renal lesions are present, unchanged. Full assessment is limited due to la ck of IV contrast. No stone or hydronephrosis. No bowel obstruction, free air, free fluid or abscess. Normal appendix noted. Multilevel degenerative changes are present involving the lumbar spine. Right total hip arthroplasty seen. IMPRESSION: An acute process is not suspected.
== END 2018-01-26 05:57 | disposition home or self-care (01) ==
LOC: ER 22:10
DX: M47.896 Other spondylosis, lumbar region (principal); I10 Essential (primary) hypertension; F17.210 Nicotine dependence, cigarettes, uncomplicated; Z85.038 Personal history of other malignant neoplasm of large intestine
CPT/HCPCS: 74176; 76377; 81003; 99284

== ENCOUNTER 2018-02-01 23:18 | Emergency (ER) | payer OTHER ==
[2018-02-02 00:39] LABS: Urine Appearance CLEAR; Urine Bilirubin NEGATIVE (NEG); Urine Blood NEGATIVE (NEG); Urine Color YELLOW; Urine Glucose NEGATIVE (NEG); Urine Microscopic Reflex NO UMIC; Urine Protein NEGATIVE (NEG)
[2018-02-02 00:55] LABS: Absolute Lymphocytes (CBC) 1.2 K/uL (0.7-4.9); Absolute Monocytes 0.6 K/uL (0.1-1.3); Absolute Neutrophil 3.1 K/uL (1.8-8.0); Basophils % 1.2 % (0-1.3); Eosinophils % 1.6 % (0-4.4); Hematocrit 47.5 % (39.6-49.0); Lymphocytes % 24.3 % (15.3-44.8); MCH 26.6 pg (27.0-35.0); MCV 79.8 fL (80-100); MPV 7.1 fL (7.6-11.3); Monocytes % 12.6 % (3.3-12.3); RBC Red Blood Cell Count 5.95 M/uL (4.33-5.43)
[2018-02-02 01:06] LABS: Albumin 3.4 g/dL (3.4-5.0); Bilirubin Direct 0.2 mg/dL (0-0.2); Bilirubin Total 0.5 mg/dL (0.2-1.0); Potassium 4.3 mmol/L (3.5-5.1); Protein, Total 7.5 g/dL (6.4-8.2)
[2018-02-02 01:11] LABS: Urine Blood TRACE (NEG); Urine Glucose NEGATIVE (NEG); Urine Protein NEGATIVE (NEG); Urine Specific Gravity 1.015 (1.005-1.030)
[2018-02-02] MEDS ORDERED: cloNIDine HCl 0.1 MG TAB ONE (02:32)
[2018-02-02] MEDS ORDERED: KETOROLAC 30 MG/ML INJ ONE (02:40)
--- NOTE | 2018-02-02 03:55 | EDPHYS ---
Physician Documentation [facility] Name: Deacon Howe Jr Age: 82 yrs Sex: Male : 1935 Arrival Date: 02/01/2018 Time: 23:19 Bed 14 Private MD: ED Physician Jim Colby HPI: 02/02 02:28 This 82 yrs old Black Male presents to ER via EMS with complaints of "pain all over". tw4 02:28 Pt is a 82 year old male that comes to the ED with complaint of "pain all over". Pt tw4 states that he has had abdominal pain and chest pain. Pt denies vomiting, diarrhea. Pt states that he does not have fever, chills, SOB, diaphoresis. Pt is well known to the facility with numerous visits to the ED with similar complaints for the same. Onset: The symptoms/episode began/occurred today. Severity of symptoms: At their worst the symptoms were moderate in the emergency department the symptoms are unchanged. The patient has not experienced similar symptoms in the past. Historical: - Allergies: 02/01 23:21 NKDA; jb4 - Home Meds: 23:21 None [Active]; jb4 - PMHx: 23:21 colon cancer; Hypertension; HIV; jb4 - PSHx: 23:21 HIP surgery; Cholecystectomy; jb4 - Immunization history:: Adult Immunizations unknown. - Social history:: Smoking status: Patient uses tobacco products, smokes two packs cigarettes per day. Patient uses alcohol, on a daily basis. Patient/guardian denies using street drugs. - Ebola Screening: : No symptoms or risks identified at this time. ROS: 02/02 02:28 Constitutional: Negative for fever, chills, and weight loss, Eyes: Negative for injury, tw4 pain, redness, and discharge. Respiratory: Negative for shortness of breath, cough, wheezing, and pleuritic chest pain. MS/Extremity: Negative for injury and deformity, Skin: Negative for injury, rash, and discoloration, Neuro: Negative for headache, weakness, numbness, tingling, and seizure. Cardiovascular: Positive for chest pain, Negative for edema, orthopnea, palpitations. Abdomen/GI: Positive for abdominal pain, Negative for nausea and vomiting, nausea, vomiting, and diarrhea. Exam: 02:28 Constitutional: This is a well developed, well nourished patient who is awake, alert, tw4 and in no acute distress. Head/Face: Normocephalic, atraumatic. Chest/axilla: Normal chest wall appearance and motion. Nontender with no deformity. No lesions are appreciated. Cardiovascular: Regular rate and rhythm with a normal S1 and S2. No gallops, murmurs, or rubs. Normal PMI, no JVD. No pulse deficits. Respiratory: Lungs have equal breath sounds bilaterally, clear to auscultation and percussion. No rales, rhonchi or wheezes noted. No increased work of breathing, no retractions or nasal flaring. Abdomen/GI: Soft, non-tender, with normal bowel sounds. No distension or tympany. No guarding or rebound. No evidence of tenderness throughout. Back: No spinal tenderness. No costovertebral tenderness. Full range of motion. MS/ Extremity: Pulses equal, no cyanosis. Neurovascular intact. Full, normal range of motion. Neuro: Awake and alert, GCS 15, oriented to person, place, time, and situation. Cranial nerves II-XII grossly intact. Motor strength 5/5 in all extremities. Sensory grossly intact. Cerebellar exam normal. Normal gait. Vital Signs: 02/01 23:21 BP 164 / 93; Pulse 85; Resp 16; Temp 98.0; Pulse Ox 100% on R/A; Weight 77.11 kg (R); jb4 Height 6 ft. 2 in. (187.96 cm) (R); Pain 11/22; 02/02 00:46 BP 172 / 103; Pulse 86; Resp 16; Pulse Ox 98% on R/A; jb4 01:55 BP 142 / 84; Pulse 84; Resp 16; Pulse Ox 99% on R/A; jb4 02:51 BP 164 / 97; Pulse 69; Resp 18; Pulse Ox 98% on R/A; jb4 03:06 BP 107 / 70; Pulse 71; Resp 16; Pulse Ox 100% on R/A; jb4 04:09 BP 134 / 86; Pulse 86; Resp 16; Pulse Ox 100% on R/A; jb4 02/01 23:21 Body Mass Index 21.83 (77.11 kg, 187.96 cm) jb4 MDM: 02/01 23:32 Patient medically screened. tw4 02/02 05:42 Differential Diagnosis altered mental status. Data reviewed: vital signs, nurses notes. Data interpreted: Pulse oximetry: Interpretation: normal. Counseling: I had a detailed discussion with the patient and/or guardian regarding: the historical points, exam findings, and any diagnostic results supporting the discharge/admit diagnosis. Special discussion: I discussed with the patient/guardian in detail that at this point there is no indication for admission to the hospital. It is understood, however, that if the symptoms persist or worsen the patient needs to return immediately for re-evaluation. 02/02 00:12 Order name: Basic Metabolic Panel; Complete Time: 02:10 02/02 02:10 Interpretation: Normal except: BUN 23; CRE 1.50; GFR 54. 02/02 00:12 Order name: CBC with Diff; Complete Time: 02:10 02/02 02:10 Interpretation: Normal except: RBC 5.95; MCV 79.8; MCH 26.6; RDW 17.0; MPV 7.1; MN% tw4 12.6. 02/02 00:12 Order name: Creatinine for Radiology; Complete Time: 02:10 02/02 02:10 Interpretation: CRE 1.40; GFR 59. 02/02 00:12 Order name: Hepatic Function; Complete Time: 02:10 02/02 00:12 Order name: Lipase; Complete Time: 02:10 02/02 02:10 Interpretation: Within normal limits: LIP 151. 02/02 00:12 Order name: Urinalysis; Complete Time: 02:10 02/02 02:10 Interpretation: Within normal limits. 02/02 00:12 Order name: IV Saline Lock; Complete Time: 00:43 02/02 00:12 Order name: Labs collected and sent; Complete Time: 00:43 02/02 00:40 Order name: Urine Dipstick--Ancillary (enter results) ar5 Administered Medications: 02:27 Drug: cloNIDine 0.2 mg Route: PO; jb4 04:11 Follow up: Response: No adverse reaction; Blood pressure is lowered jb4 02:36 Drug: TORadol 60 mg Route: IM; Site: right gluteus; jb4 04:11 Follow up: Response: No adverse reaction; Pain is decreased jb4 Disposition: 02/02/18 03:53 Discharged to Home. Impression: Myalgia. - Condition is Stable. - Discharge Instructions: Chest Wall Pain, Myofascial Pain Syndrome and Fibromyalgia, Musculoskeletal Pain, Muscle Pain, Adult. - Medication Reconciliation Form, Thank You Letter, Antibiotic Education, Prescription Opioid Use form. - Follow up: Private Physician; When: Upon discharge from the Emergency Department; Reason: Further diagnostic work-up, Recheck today's complaints, Continuance of care. - Problem is new. - Symptoms have improved. Signatures: Dispatcher [employer] EDDE Hudson Johnson RN RN jb4 Jim Colby MD MD tw4 Corrections: (The following items were deleted from the chart) 04:12 03:53 02/02/2018 03:53 Discharged to Home. Impression: Myalgia. Condition is Stable. jb4 Forms are Medication Reconciliation Form, Thank You Letter, Antibiotic Education, Prescription Opioid Use. Follow up: Private Physician; When: Upon discharge from the Emergency Department; Reason: Further diagnostic work-up, Recheck today's complaints, Continuance of care. Problem is new. Symptoms have improved. tw4
--- NOTE | 2018-02-02 03:55 | ER ---
Nurse's Notes [facility] Name: Deacon Howe Jr Age: 82 yrs Sex: Male : 1935 Arrival Date: 02/01/2018 Time: 23:19 Bed 14 Private MD: Diagnosis: Myalgia Presentation: 02/01 23:19 Presenting complaint: EMS states: He is complaining of generalized pain, and is jb4 hypertensive. Transition of care: patient was not received from another setting of care. Onset of symptoms was February 01, 2018. Risk Assessment: Do you want to hurt yourself or someone else? Patient reports no desire to harm self or others. Initial Sepsis Screen: Does the patient meet any 2 criteria? No. Patient's initial sepsis screen is negative. Does the patient have a suspected source of infection? No. Patient's initial sepsis screen is negative. Care prior to arrival: None. 23:19 Method Of Arrival: EMS: [facility] jb4 23:19 Acuity: ALIN 3 jb4 Triage Assessment: 23:21 General: Appears in no apparent distress. uncomfortable, Behavior is calm, cooperative, jb4 appropriate for age. Pain: Complains of pain in Generalized Pain currently is 9 out of 10 on a pain scale. EENT: No signs and/or symptoms were reported regarding the EENT system. Neuro: Level of Consciousness is awake, alert, obeys commands, Oriented to person, place, time, situation. Cardiovascular: Heart tones S1 S2 present Patient's skin is warm and dry. Respiratory: Airway is patent is compromised Respiratory effort is even, unlabored, Respiratory pattern is regular, symmetrical, Breath sounds are clear bilaterally. GI: Abdomen is flat, non-distended, Bowel sounds present X 4 quads. Abd is soft and non tender X 4 quads. : No signs and/or symptoms were reported regarding the genitourinary system. Derm: Skin is intact, Skin is dry, Skin is normal, Skin temperature is warm. Musculoskeletal: Circulation, motion, and sensation intact. Historical: - Allergies: 23:21 NKDA; jb4 - Home Meds: 23:21 None [Active]; jb4 - PMHx: 23:21 colon cancer; Hypertension; HIV; jb4 - PSHx: 23:21 HIP surgery; Cholecystectomy; jb4 - Immunization history:: Adult Immunizations unknown. - Social history:: Smoking status: Patient uses tobacco products, smokes two packs cigarettes per day. Patient uses alcohol, on a daily basis. Patient/guardian denies using street drugs. - Ebola Screening: : No symptoms or risks identified at this time. Screenin:24 Abuse screen: Denies threats or abuse. Nutritional screening: No deficits noted. jb4 Tuberculosis screening: No symptoms or risk factors identified. Fall Risk None identified. Assessment: 23:24 General: see triage assessment.. jb4 02/02 00:43 Reassessment: Patient appears in no apparent distress at this time. Patient and/or jb4 family updated on plan of care and expected duration. Pain level reassessed. Patient is alert, oriented x 3, equal unlabored respirations, skin warm/dry/pink. 01:55 Reassessment: Patient appears in no apparent distress at this time. Patient and/or jb4 family updated on plan of care and expected duration. Pain level reassessed. Patient is alert, oriented x 3, equal unlabored respirations, skin warm/dry/pink. 02:51 Reassessment: Patient appears in no apparent distress at this time. Patient and/or jb4 family updated on plan of care and expected duration. Pain level reassessed. Patient is alert, oriented x 3, equal unlabored respirations, skin warm/dry/pink. 04:09 Reassessment: Patient appears in no apparent distress at this time. Patient and/or jb4 family updated on plan of care and expected duration. Pain level reassessed. Patient is alert, oriented x 3, equal unlabored respirations, skin warm/dry/pink. Vital Signs: 02/01 23:21 BP 164 / 93; Pulse 85; Resp 16; Temp 98.0; Pulse Ox 100% on R/A; Weight 77.11 kg (R); jb4 Height 6 ft. 2 in. (187.96 cm) (R); Pain 11/22; 02/02 00:46 BP 172 / 103; Pulse 86; Resp 16; Pulse Ox 98% on R/A; jb4 01:55 BP 142 / 84; Pulse 84; Resp 16; Pulse Ox 99% on R/A; jb4 02:51 BP 164 / 97; Pulse 69; Resp 18; Pulse Ox 98% on R/A; jb4 03:06 BP 107 / 70; Pulse 71; Resp 16; Pulse Ox 100% on R/A; jb4 04:09 BP 134 / 86; Pulse 86; Resp 16; Pulse Ox 100% on R/A; jb4 02/01 23:21 Body Mass Index 21.83 (77.11 kg, 187.96 cm) jb4 ED Course: 02/01 23:19 Patient arrived in ED. jb4 23:20 Triage completed. jb4 23:21 Arm band placed on right wrist. jb4 23:24 Patient has correct armband on for positive identification. Bed in low position. Call jb4 light in reach. Side rails up X 1. Pulse ox on. NIBP on. 23:32 Jim Colby MD is Attending Physician. tw4 02/02 00:29 Hudson Johnson RN is Primary Nurse. jb4 04:09 No provider procedures requiring assistance completed. Patient did not have IV access jb4 during this emergency room visit. Administered Medications: 02:27 Drug: cloNIDine 0.2 mg Route: PO; jb4 04:11 Follow up: Response: No adverse reaction; Blood pressure is lowered jb4 02:36 Drug: TORadol 60 mg Route: IM; Site: right gluteus; jb4 04:11 Follow up: Response: No adverse reaction; Pain is decreased jb4 Outcome: 03:53 Discharge ordered by . tw4 04:09 Discharged to home ambulatory. jb4 04:09 Condition: stable 04:09 Discharge instructions given to patient, Instructed on discharge instructions, follow up and referral plans. Demonstrated understanding of instructions, follow-up care. 04:12 Patient left the ED. jb4 Signatures: Hudson Johnson RN RN jb4 Jim Colby MD MD tw4 Corrections: (The following items were deleted from the chart) 00:29 02/01 23:21 Cardiovascular: Patient's skin is warm and dry. jb4 jb4 02/02 00:29 02/01 23:21 Respiratory: Airway is patent is compromised Respiratory effort is even, jb4 unlabored, Respiratory pattern is regular, symmetrical, jb4 02/02 00:29 02/01 23:21 GI: No signs and/or symptoms were reported involving the gastrointestinal jb4 system. jb4
[2018-02-02 04:19] VITALS: TEMP 98
[2018-02-02 04:24] VITALS: O2SAT 100
[2018-02-02 04:25] VITALS: BP 134/86
== END 2018-02-02 04:12 | disposition home or self-care (01) ==
LOC: ER 23:18
DX: M79.10 Myalgia, unspecified site (principal); I10 Essential (primary) hypertension; F17.210 Nicotine dependence, cigarettes, uncomplicated; Z21 Asymptomatic human immunodeficiency virus [HIV] infection status; Z85.038 Personal history of other malignant neoplasm of large intestine
CPT/HCPCS: 36415; 80048; 80076; 81003; 83690; 85025; 96372; 99284

== ENCOUNTER 2018-02-04 05:03 | Emergency (ER) | payer OTHER ==
[2018-02-04] MEDS ORDERED: ONDANSETRON 4 MG/2 ML VIAL ONE (05:28)
--- NOTE | 2018-02-04 06:12 | EKG ---
Test Date: 2018-02-04 Test Time: 05:13:20 Tag Maker: JANUARY MEASUREMENT RESULTS: Intervals: Rate: 57 MI: 162 QRSD: 80 QT: 406 QTc: 395 [place]: P: MI: 162 QRS: 78 T: 81 INTERPRETIVE STATEMENTS: Sinus bradycardia with sinus arrhythmia Otherwise normal ECG Compared to ECG 10/02/2017 13:41:18 Sinus rhythm no longer present Electronically Signed On 02-04-18 06:11:59 PRESSURIZER by Maurice Martin
[2018-02-04 06:48] LABS: Absolute Lymphocytes (CBC) 1.3 K/uL (0.7-4.9); Absolute Monocytes 0.5 K/uL (0.1-1.3); Absolute Neutrophil 2.3 K/uL (1.8-8.0); Basophils % 0.9 % (0-1.3); Eosinophils % 1.3 % (0-4.4); Hematocrit 46.6 % (39.6-49.0); Lymphocytes % 30.9 % (15.3-44.8); MCH 26.9 pg (27.0-35.0); MCV 80.4 fL (80-100); MPV 7.5 fL (7.6-11.3); Monocytes % 11.7 % (3.3-12.3); RBC Red Blood Cell Count 5.79 M/uL (4.33-5.43)
[2018-02-04 07:09] LABS: ALT/SGPT 28 U/L (12-78); AST/SGOT 26 U/L (15-37); Albumin 3.2 g/dL (3.4-5.0); Alkaline Phosphatase 71 U/L (45-117); BUN Blood Urea Nitrogen 19 mg/dL (7-18); Bicarbonate 26 mmol/L (21-32); Bilirubin Direct 0.3 mg/dL (0-0.2); Bilirubin Total 0.8 mg/dL (0.2-1.0); Creatine Phosphokinase 160 U/L (39-308); Glucose Level 79 mg/dL (74-106); Lipase 113 U/L (73-393); Potassium 4.4 mmol/L (3.5-5.1); Protein, Total 7.1 g/dL (6.4-8.2); Sodium Level 137 mmol/L (136-145); Troponin (Emerg Dept Use Only) < 0.02 ng/mL (0.0-0.045)
--- NOTE | 2018-02-04 07:25 | ER ---
Nurse's Notes [facility] Name: Deacon Howe Jr Age: 82 yrs Sex: Male : 1935 Arrival Date: 02/04/2018 Time: 05:04 Bed 20 Private MD: Diagnosis: Vomiting;Generalized abdominal pain Presentation: 02/04 05:11 Presenting complaint: EMS states: Generalized body pain. Transition of care: homeless cc3 just found in [facility] in [place]. Onset of symptoms was February 04, 2018. Risk Assessment: Do you want to hurt yourself or someone else? Patient reports no desire to harm self or others. Initial Sepsis Screen: Does the patient meet any 2 criteria? No. Patient's initial sepsis screen is negative. Does the patient have a suspected source of infection? No. Patient's initial sepsis screen is negative. Care prior to arrival: None. 05:11 Method Of Arrival: EMS: [facility] [facility] cc3 05:11 Acuity: ALIN 3 cc3 Triage Assessment: 05:11 General: Appears in no apparent distress. uncomfortable, Behavior is calm, cooperative. cc3 Pain: Complains of pain in generalized body pain. EENT: No signs and/or symptoms were reported regarding the EENT system. Neuro: Level of Consciousness is awake, alert, obeys commands, Oriented to person, place, time, situation, Appropriate for age. Cardiovascular: Reports chest pain. Respiratory: Airway is patent Respiratory effort is even, unlabored, Respiratory pattern is regular, symmetrical. GI: Abdomen is round non-distended. : No signs and/or symptoms were reported regarding the genitourinary system. Derm: No signs and/or symptoms reported regarding the dermatologic system. Musculoskeletal: Circulation, motion, and sensation intact. Range of motion: intact in all extremities. Historical: - Allergies: 05:11 NKDA; cc3 - PMHx: 05:11 colon cancer; Hypertension; HIV; cc3 - Immunization history:: Adult Immunizations not up to date. - Social history:: Smoking status: Patient uses tobacco products, cigars. - Ebola Screening: : No symptoms or risks identified at this time. Screenin:11 Abuse screen: Denies threats or abuse. Denies injuries from another. Nutritional cc3 screening: No deficits noted. Tuberculosis screening: No symptoms or risk factors identified. Fall Risk Ambulatory Aid- None/Bed Rest/Nurse Assist (0 pts). Gait- Normal/Bed Rest/Wheelchair (0 pts) Mental Status- Oriented to own ability (0 pts). Assessment: 05:11 General: see triage assessment. cc3 06:31 Reassessment: Patient appears in no apparent distress at this time. Patient and/or cc3 family updated on plan of care and expected duration. Pain level reassessed. Patient is alert, oriented x 3, equal unlabored respirations, skin warm/dry/pink. 06:58 Reassessment: Handed over to morning shift for continuity of care. cc3 Vital Signs: 05:11 BP 152 / 71; Pulse 68; Resp 18 S; Temp 97.8(O); Pulse Ox 100% on R/A; Weight 74.84 kg cc3 (R); Height 6 ft. 2 in. (187.96 cm) (R); 06:38 BP 187 / 87; Pulse 61; Resp 17; Pulse Ox 97% on R/A; cc3 05:11 Body Mass Index 21.18 (74.84 kg, 187.96 cm) cc3 ED Course: 05:04 Patient arrived in ED. al2 05:09 Sp Herron MD is Attending Physician. rn 05:11 Garima Gatica is Primary Nurse. cc3 05:11 Arm band placed on right wrist. cc3 05:11 Patient has correct armband on for positive identification. Bed in low position. Call cc3 light in reach. Side rails up X 1. Pulse ox on. NIBP on. 05:15 Triage completed. cc3 06:20 Inserted saline lock: 22 gauge in right hand, using aseptic technique. Blood collected. ea 06:58 Report given to SOY Duong. cc3 07:08 Ad Fuentes LVN is Primary Nurse. em 07:31 No provider procedures requiring assistance completed. IV discontinued, intact, tw2 bleeding controlled, No redness/swelling at site. Pressure dressing applied. Administered Medications: 06:25 Drug: Zofran 4 mg Route: IVP; Site: right hand; cc3 07:10 Follow up: Response: No adverse reaction; Nausea is decreased em Outcome: 07:25 Discharge ordered by . jr8 07:31 Discharged to home ambulatory. tw2 07:31 Condition: stable 07:31 Discharge instructions given to patient, Instructed on discharge instructions, follow up and referral plans. no driving heavy equipment, Demonstrated understanding of instructions, follow-up care, medications, Prescriptions given X 1. 07:31 Patient left the ED. tw2 Signatures: Ad Fuentes LVN LVN Sp Forrseter MD MD rn Roszak, Josh, PA PA jr8 Juana Hanson RN RN tw2 Nayla Palmer RN RN ea Love, Aylin jaeger2 Garima Gatica cc3 Corrections: (The following items were deleted from the chart) 05:57 05:55 Reassessment: Patient appears in no apparent distress at this time. Patient cc3 and/or family updated on plan of care and expected duration. Pain level reassessed. Patient is alert, oriented x 3, equal unlabored respirations, skin warm/dry/pink. Patient has just remaining 100 mL of the oral contrast, informed CT scan department and the commercial tire service technician said it's fine and they'll have to take the patient for the procedure after an hour and a half, informed the patient and her mother. cc3
--- NOTE | 2018-02-04 07:25 | EDPHYS ---
Physician Documentation [facility] Name: Deacon Howe Jr Age: 82 yrs Sex: Male : 1935 Arrival Date: 02/04/2018 Time: 05:04 Bed 20 Private MD: ED Physician Sp Herron HPI: 02/04 05:19 This 82 yrs old Black Male presents to ER via EMS with complaints of abdominal pain, rn vomiting. 05:19 The patient presents with abdominal pain. Onset: The symptoms/episode began/occurred at rn an unknown time. The symptoms do not radiate. Modifying factors: The symptoms are alleviated by nothing, the symptoms are aggravated by nothing. Severity of pain: At its worst the pain was mild in the emergency department the pain is unchanged. The patient has experienced similar episodes in the past, chronically. Reports abd pain, diffuse, mild, assoc with vomiting, reports "couldn't even enjoy the holidays", no trauma, reports generalized weakness with muscle aches. Seen for this here 2 days ago with normal bloodwork, doesn't feel better, picked up from [facility]. . Historical: - Allergies: 05:11 NKDA; cc3 - PMHx: 05:11 colon cancer; Hypertension; HIV; cc3 - Immunization history:: Adult Immunizations not up to date. - Social history:: Smoking status: Patient uses tobacco products, cigars. - Ebola Screening: : No symptoms or risks identified at this time. ROS: 05:20 Constitutional: Negative for fever, chills, and weight loss, Eyes: Negative for injury, rn pain, redness, and discharge, Neck: Negative for injury, pain, and swelling, Cardiovascular: + chest pain Respiratory: + cough Abdomen/GI: + abd pain/nausea/vomiting/diarrhea MS/Extremity: Negative for injury and deformity, Skin: Negative for injury, rash, and discoloration, Neuro: + generalized weakness, no headache or focal neurological complaint Exam: 05:20 Constitutional: This is a well developed, well nourished patient who is awake, alert, rn and in no acute distress. Head/Face: Normocephalic, atraumatic. Eyes: Pupils equal round and reactive to light, extra-ocular motions intact. Lids and lashes normal. Conjunctiva and sclera are non-icteric and not injected. Cornea within normal limits. Periorbital areas with no swelling, redness, or edema. ENT: Oropharynx with no redness, swelling, or masses, exudates, or evidence of obstruction, uvula midline. Mucous membranes moist. Neck: Trachea midline, no thyromegaly or masses palpated, and no cervical lymphadenopathy. Supple, full range of motion without nuchal rigidity, or vertebral point tenderness. No Meningismus. Cardiovascular: Regular rate and rhythm with a normal S1 and S2. No pulse deficits. Respiratory: Lungs have equal breath sounds bilaterally, clear to auscultation. No increased work of breathing, no retractions or nasal flaring. Abdomen/GI: soft, mild tenderness all 4 quadrants, no rebound/peritoneal signs MS/ Extremity: Pulses equal, no cyanosis. Neurovascular intact. Full, normal range of motion. Equal circumference. Neuro: Awake and alert, GCS 15, oriented to person, place, time, and situation. Cranial nerves II-XII grossly intact. Motor strength 5/5 in all extremities. Sensory grossly intact. Cerebellar exam normal. Vital Signs: 05:11 BP 152 / 71; Pulse 68; Resp 18 S; Temp 97.8(O); Pulse Ox 100% on R/A; Weight 74.84 kg cc3 (R); Height 6 ft. 2 in. (187.96 cm) (R); 06:38 BP 187 / 87; Pulse 61; Resp 17; Pulse Ox 97% on R/A; cc3 05:11 Body Mass Index 21.18 (74.84 kg, 187.96 cm) cc3 MDM: 05:09 Patient medically screened. rn 06:52 Differential diagnosis: gastritis, non-specific abd pain, pancreatitis, Peptic Ulcer rn Disease. Data reviewed: vital signs, nurses notes, lab test result(s), EKG, and as a result, I will discharge patient. Counseling: I had a detailed discussion with the patient and/or guardian regarding: the historical points, exam findings, and any diagnostic results supporting the discharge/admit diagnosis, lab results, the need for outpatient follow up, to return to the emergency department if symptoms worsen or persist or if there are any questions or concerns that arise at home. Response to treatment: the patient's symptoms have markedly improved after treatment, sleeping comfortably, no vomiting while here, stable vitals. . Special discussion: I discussed with the patient/guardian in detail that at this point there is no indication for admission to the hospital. It is understood, however, that if the symptoms persist or worsen the patient needs to return immediately for re-evaluation. ED course: Pt seen here 2 days ago, here frequently for chest and abd pain, known drug user, no vomiting here, no elevation in WBC, pending a few other labs, LETTY [place], to f/u labs and dc if normal. If abnormal, will get ct abdomen. . 02/04 05:10 Order name: Basic Metabolic Panel; Complete Time: 07:24 rn 02/04 05:10 Order name: CBC with Diff; Complete Time: 06:50 rn 02/04 05:10 Order name: Hepatic Function; Complete Time: 07:24 rn 02/04 05:10 Order name: Lipase; Complete Time: 07:24 rn 02/04 05:11 Order name: Troponin (emerg Dept Use Only); Complete Time: 07:24 rn 02/04 05:09 Order name: EKG - Nurse/Tech; Complete Time: 05:16 rn 02/04 05:09 Order name: EKG; Complete Time: 05:10 rn 02/04 05:10 Order name: IV Saline Lock; Complete Time: 06: rn 02/04 05:10 Order name: Labs collected and sent; Complete Time: 06: rn 02/04 05:42 Order name: Creatine Phosphokinase; Complete Time: 07:24 EDMS Administered Medications: 06:25 Drug: Zofran 4 mg Route: IVP; Site: right hand; cc3 07:10 Follow up: Response: No adverse reaction; Nausea is decreased em Disposition: 02/04/18 07:25 Discharged to Home. Impression: Vomiting, Generalized abdominal pain. - Condition is Stable. - Discharge Instructions: Abdominal Pain, Adult, Nausea and Vomiting, Adult. - Prescriptions for Zofran ODT 4 mg Oral tablet,disintegrating - place 1 tablet by TRANSLINGUAL route every 8 hours As needed; 20 tablet. - Medication Reconciliation Form, Thank You Letter, Antibiotic Education, Prescription Opioid Use form. - Follow up: Private Physician; When: As needed; Reason: Recheck today's complaints, Re-evaluation by your physician. - Problem is chronic. - Symptoms have improved. Signatures: Dispatcher [employer] EDMS Herron, MD MD zulema Snowden Josh, PA PA jr8 Juana Hanson RN RN tw2 Garima Gatica cc3 Ad Fuentes EDGE ROLLER em Corrections: (The following items were deleted from the chart) 05:42 05:21 CREATINE PHOSPHOKINASE+C.LAB.BRZ ordered. [facility] EDMS 07:31 07:25 02/04/2018 07:25 Discharged to Home. Impression: Vomiting; Generalized abdominal tw2 pain. Condition is Stable. Discharge Instructions: Abdominal Pain, Adult, Nausea and Vomiting, Adult. Prescriptions for Zofran ODT 4 mg Oral tablet,disintegrating - place 1 tablet by TRANSLINGUAL route every 8 hours As needed; 20 tablet. and Forms are Medication Reconciliation Form, Thank You Letter, Antibiotic Education, Prescription Opioid Use. Follow up: Private Physician; When: As needed; Reason: Recheck today's complaints, Re-evaluation by your physician. Problem is chronic. Symptoms have improved. jr8
[2018-02-04 07:40] VITALS: TEMP 97.8
[2018-02-04 07:42] VITALS: BP 187/87; O2SAT 97
== END 2018-02-04 07:31 | disposition home or self-care (01) ==
LOC: ER 05:03
DX: R10.84 Generalized abdominal pain (principal); I10 Essential (primary) hypertension; Z21 Asymptomatic human immunodeficiency virus [HIV] infection status; Z72.0 Tobacco use; Z85.038 Personal history of other malignant neoplasm of large intestine
CPT/HCPCS: 36415; 80048; 80076; 82550; 83690; 84484; 85025; 93005; 96374; 99284; J2405

== ENCOUNTER 2018-02-06 15:57 | Emergency (ER) | payer OTHER ==
[2018-02-06] MEDS ORDERED: KETOROLAC 30 MG/ML INJ ONE (16:31)
[2018-02-06] MEDS ORDERED: PANTOPRAZOLE 40 MG INJ ONE (16:31)
[2018-02-06] MEDS ORDERED: NA CHLORIDE 0.9% 500 ML ONE (16:31)
[2018-02-06] MEDS ORDERED: ONDANSETRON 4 MG/2 ML VIAL ONE (16:31)
[2018-02-06 17:04] LABS: Absolute Lymphocytes (CBC) 1.3 K/uL (0.7-4.9); Absolute Monocytes 0.6 K/uL (0.1-1.3); Absolute Neutrophil 2.9 K/uL (1.8-8.0); Basophils % 1.4 % (0-1.3); Eosinophils % 1.3 % (0-4.4); Lymphocytes % 27.1 % (15.3-44.8); MCH 26.7 pg (27.0-35.0); MCV 80.5 fL (80-100); MPV 7.4 fL (7.6-11.3); Monocytes % 11.5 % (3.3-12.3); RBC Red Blood Cell Count 5.71 M/uL (4.33-5.43)
[2018-02-06 17:21] LABS: Albumin 3.5 g/dL (3.4-5.0); Bilirubin Direct 0.2 mg/dL (0-0.2); Bilirubin Total 0.5 mg/dL (0.2-1.0); Protein, Total 7.4 g/dL (6.4-8.2)
--- NOTE | 2018-02-06 19:13 | RAD REPORT ---
EXAM DESCRIPTION: RAD - Chest Single View - 02/06/2018 6:57 pm CLINICAL HISTORY: PAIN Chest pain. COMPARISON: Chest Single View dated 12/02/2017; Abdomen 1 View (KUB) dated 08/25/2017; Chest Single Vi ew dated 08/06/2017; Chest Single View dated 06/02/2017 FINDINGS: Portable technique limits examination quality. Chronic right pleural and parenchymal lung opacities are again noted, unchanged. Left lung is grossly clear. The heart is normal in size. No displaced fractures. IMPRESSION: No acute intrathoracic process suspected.
--- NOTE | 2018-02-06 19:18 | RAD REPORT ---
EXAM DESCRIPTION: RAD - Pelvis - 02/06/2018 6:57 pm CLINICAL HISTORY: PAIN COMPARISON: None FINDINGS: AP pelvis and right hip, multiple projections are submitted Right total hip arthroplasty is present. Rounded areas of lucency seen adjacent to the acetabular cup component can be seen with particle disease. Moderate left hip osteoarthritis. An acute fracture is not identified.
--- NOTE | 2018-02-06 19:37 | ER ---
Nurse's Notes [facility] Name: Deacon Howe Jr Age: 82 yrs Sex: Male : 1935 Arrival Date: 02/06/2018 Time: 16:00 Bed 19 Private MD: Diagnosis: Nausea;Pain in right hip;Other chronic pain Presentation: 02/06 16:26 Presenting complaint: EMS states: called out for pain all over, N/V. Transition of em care: patient was not received from another setting of care. Onset of symptoms was February 06, 2018. Risk Assessment: Do you want to hurt yourself or someone else? Patient reports no desire to harm self or others. Initial Sepsis Screen: Does the patient meet any 2 criteria? No. Patient's initial sepsis screen is negative. Does the patient have a suspected source of infection? No. Patient's initial sepsis screen is negative. Care prior to arrival: None. 16:26 Method Of Arrival: EMS: [facility] em 16:26 Acuity: ALIN 3 iw Triage Assessment: 16:28 General: Appears in no apparent distress. comfortable, Behavior is calm. Pain: em Complains of pain in abdomen. Historical: - Allergies: 16:27 NKDA; em - PMHx: 16:27 colon cancer; HIV; Hypertension; em - PSHx: 16:27 None; em - Immunization history:: Adult Immunizations up to date. - Social history:: Smoking status: unknown. - Ebola Screening: : Patient negative for fever greater than or equal to 101.5 degrees Fahrenheit, and additional compatible Ebola Virus Disease symptoms Patient denies exposure to infectious person Patient denies travel to an Ebola-affected area in the 21 days before illness onset No symptoms or risks identified at this time. Screenin:53 Abuse screen: Denies threats or abuse. Nutritional screening: No deficits noted. em Tuberculosis screening: No symptoms or risk factors identified. Fall Risk None identified. Assessment: 16:07 General: Appears in no apparent distress. uncomfortable, slender, Behavior is em cooperative, restless, Denies fever. Pain: Complains of pain in pelvis and abdomen Pain currently is 8 out of 10 on a pain scale. Neuro: Level of Consciousness is awake, alert, obeys commands, Oriented to person, place, time, situation. Cardiovascular: Capillary refill < 3 seconds Patient's skin is warm and dry. Respiratory: Airway is patent Respiratory effort is even, unlabored, Respiratory pattern is regular, symmetrical. GI: Abdomen is flat, Bowel sounds present X 4 quads. Abd is soft X 4 quads Abdomen is tender to palpation X 4 quads. Reports nausea, vomiting. : No signs and/or symptoms were reported regarding the genitourinary system. EENT: No signs and/or symptoms were reported regarding the EENT system. Derm: Skin is intact, Skin is pink, warm \T\ dry. Musculoskeletal: Capillary refill < 3 seconds, Range of motion: intact in all extremities. 16:34 Reassessment: Patient appears in no apparent distress at this time. I agree with above iw assessment by Ad Fuentes LVN. 17:17 Reassessment: Patient appears in no apparent distress at this time. Patient and/or em family updated on plan of care and expected duration. Pain level reassessed. Patient is alert, oriented x 3, equal unlabored respirations, skin warm/dry/pink. 18:20 Reassessment: Patient appears in no apparent distress at this time. Patient and/or em family updated on plan of care and expected duration. Pain level reassessed. Patient is alert, oriented x 3, equal unlabored respirations, skin warm/dry/pink. 19:55 Reassessment: Patient and/or family updated on plan of care and expected duration. Pain ea level reassessed. Patient is alert, oriented x 3, equal unlabored respirations, skin warm/dry/pink. Discharge instructions given to patient, verbalized the understanding of instruction. Vital Signs: 16:28 BP 160 / 105; Pulse 97; Resp 18; Temp 98.4; Pulse Ox 100% on R/A; Weight 83.91 kg; em Height 6 ft. 2 in. (187.96 cm); Pain 8/10; 17:03 BP 178 / 91; Pulse 94; Resp 16; Pulse Ox 98% on R/A; mt 17:36 BP 150 / 70; Pulse 62; Resp 16; Pulse Ox 100% on R/A; mt 18:50 BP 153 / 86; Pulse 69; Resp 18; Pulse Ox 99% on R/A; Pain 7/10; em 19:45 BP 150 / 70; Pulse 60; Resp 18; Temp 98; Pulse Ox 99% on R/A; ea 16:28 Body Mass Index 23.75 (83.91 kg, 187.96 cm) em ED Course: 16:00 Patient arrived in ED. cp 16:00 Vipul Kuhn PA is PHCP. cp 16:00 Vipul Castillo MD is Attending Physician. cp 16:09 Ad Fuentes LVN is Primary Nurse. em 16:13 Triage completed. hj 16:28 Arm band placed on. em 16:52 No provider procedures requiring assistance completed. Initial lab(s) drawn, by me, em sent to lab. Inserted saline lock: 22 gauge in right antecubital area, using aseptic technique. Blood collected. 16:53 Patient has correct armband on for positive identification. Bed in low position. Call em light in reach. Adult w/ patient. 18:56 XRAY Chest (1 view) In Process Unspecified. EDMS 18:57 XRAY Pelvis In Process Unspecified. EDMS 18:57 XRAY Hip RIGHT 2 view In Process Unspecified. EDMS 19:55 IV discontinued, intact, bleeding controlled, No redness/swelling at site. Pressure ea dressing applied. Administered Medications: 16:50 Drug: NS 0.9% 250 ml Route: IV; Rate: bolus; Site: right antecubital; em 17:20 Follow up: IV Status: Completed infusion; IV Intake: 250ml em 16:50 Drug: NS 0.9% 1000 ml Route: IV; Rate: 75 ml/hr; Site: right antecubital; em 20:10 Follow up: Response: No adverse reaction; IV Status: Completed infusion; IV Intake: ea 300ml 16:51 Drug: Zofran 4 mg Route: IVP; Site: right antecubital; iw 17:30 Follow up: Response: No adverse reaction; Nausea is decreased em 16:51 Drug: ProTONIX 40 mg Route: IVP; Site: right antecubital; iw 17:20 Follow up: Response: No adverse reaction; Pain is decreased em 16:51 Drug: TORadol 30 mg Route: IVP; Site: right antecubital; iw 17:20 Follow up: Response: No adverse reaction; Pain is decreased em Intake: 17:20 IV: 250ml; Total: 250ml. em 20:10 IV: 300ml; Total: 550ml. ea Outcome: 19:37 Discharge ordered by . cp 20:07 Discharged to lobby awaiting on transportation ea 20:07 Condition: good 20:07 Discharge instructions given to patient, Instructed on discharge instructions, follow up and referral plans. medication usage, Demonstrated understanding of instructions, follow-up care, medications, Prescriptions given X 2. 20:09 Patient left the ED. ea Signatures: Dispatcher [employer] EDAd Davenport, STORE STANDARDS ASSOCIATE STORE STANDARDS ASSOCIATE Sapphire Martinez RN RN rTey García RN RN hj Page, Corey, PA PA cp Thompson, Moriah mt Antunez, Elena, RN RN ea Corrections: (The following items were deleted from the chart) 16:53 16:13 Acuity: ALIN 3 wenceslao alegre
--- NOTE | 2018-02-06 19:37 | EDPHYS ---
Physician Documentation [facility] Name: Deacon Howe Jr Age: 82 yrs Sex: Male : 1935 Arrival Date: 02/06/2018 Time: 16:00 Bed 19 Private MD: ED Physician Vipul Castillo HPI: 02/06 16:10 This 82 yrs old Black Male presents to ER via EMS with complaints of pain right side of cp body. 16:10 pain right side of body. Onset: The symptoms/episode began/occurred today. Patient cp denies injury. Reports nausea and vomiting has continues since recent visit 2 days ago. Historical: - Allergies: 16:27 NKDA; em - PMHx: 16:27 colon cancer; HIV; Hypertension; em - PSHx: 16:27 None; em - Immunization history:: Adult Immunizations up to date. - Social history:: Smoking status: unknown. - Ebola Screening: : Patient negative for fever greater than or equal to 101.5 degrees Fahrenheit, and additional compatible Ebola Virus Disease symptoms Patient denies exposure to infectious person Patient denies travel to an Ebola-affected area in the 21 days before illness onset No symptoms or risks identified at this time. ROS: 16:15 Constitutional: Negative for body aches, chills, fever, poor PO intake. cp 16:15 Eyes: Negative for injury, pain, redness, and discharge. cp 16:15 ENT: Negative for drainage from ear(s), ear pain, sore throat, difficulty swallowing, difficulty handling secretions. 16:15 Cardiovascular: Negative for chest pain, edema, palpitations. 16:15 Respiratory: Negative for cough, shortness of breath, wheezing. 16:15 Abdomen/GI: Positive for nausea and vomiting, Negative for diarrhea, constipation, black/tarry stool, rectal bleeding. 16:15 Back: Negative for injury or acute deformity. 16:15 : Negative for urinary symptoms. 16:15 MS/extremity: Positive for pain, of the right hip, Negative for injury or acute deformity, decreased range of motion. 16:15 Neuro: Negative for altered mental status, dizziness, headache, syncope, weakness. 16:15 All other systems are negative. Exam: 16:22 Constitutional: The patient appears in no acute distress, alert, awake, cp non-diaphoretic, non-toxic, well developed, well nourished. 16:22 Head/Face: Normocephalic, atraumatic. cp 16:22 Eyes: Periorbital structures: appear normal, Pupils: equal, round, and reactive to light and accomodation, Extraocular movements: intact throughout, Conjunctiva: normal, no exudate, no injection, Sclera: no appreciated abnormality, Lids and lashes: appear normal, bilaterally. 16:22 ENT: External ear(s): are unremarkable, Ear canal(s): are normal, clear, TM's: bulging, is not appreciated, bilaterally, dullness, bilaterally, erythema, is not appreciated, bilaterally, Nose: is normal, Mouth: Lips: moist, Oral mucosa: moist, Posterior pharynx: is normal, airway is patent. 16:22 Neck: C-spine: vertebral tenderness, is not appreciated, crepitus, is not appreciated, ROM/movement: is normal, is supple, without pain, no range of motions limitations, no nuchal rigidity. 16:22 Chest/axilla: Inspection: normal, Palpation: is normal, no crepitus, no tenderness. 16:22 Cardiovascular: Rate: normal, Rhythm: regular, Pulses: Pulses are 2+ in right radial artery and left radial artery. Edema: is not appreciated, JVD: is not appreciated. 16:22 Respiratory: the patient does not display signs of respiratory distress, Respirations: normal, no use of accessory muscles, no retractions, no splinting, no tachypnea, labored breathing, is not present, Breath sounds: are clear throughout, no decreased breath sounds, no stridor, no wheezing. 16:22 Abdomen/GI: Inspection: abdomen appears normal, Bowel sounds: active, all quadrants, Palpation: soft, in all quadrants, mild abdominal tenderness, in all quadrants, rebound tenderness, is not appreciated, involuntary guarding, is not appreciated. 16:22 Back: pain, is absent, ROM is normal. 16:22 Musculoskeletal/extremity: Joints: All joints are normal except the right hip displays tenderness. 16:22 Skin: cellulitis, is not appreciated, no rash present. 16:22 Neuro: Orientation: to person, place \T\ time. Mentation: is normal, Cerebellar function: is grossly normal, Motor: moves all fours, strength is normal, Sensation: is normal. Vital Signs: 16:28 BP 160 / 105; Pulse 97; Resp 18; Temp 98.4; Pulse Ox 100% on R/A; Weight 83.91 kg; em Height 6 ft. 2 in. (187.96 cm); Pain 8/10; 17:03 BP 178 / 91; Pulse 94; Resp 16; Pulse Ox 98% on R/A; mt 17:36 BP 150 / 70; Pulse 62; Resp 16; Pulse Ox 100% on R/A; mt 18:50 BP 153 / 86; Pulse 69; Resp 18; Pulse Ox 99% on R/A; Pain 7/10; em 19:45 BP 150 / 70; Pulse 60; Resp 18; Temp 98; Pulse Ox 99% on R/A; ea 16:28 Body Mass Index 23.75 (83.91 kg, 187.96 cm) em MDM: 16:02 Patient medically screened. martin 17:00 Differential Diagnosis sepsis, flu, dehydration. cp 19:35 Data reviewed: vital signs, nurses notes, lab test result(s), EKG, radiologic studies, cp plain films. 19:35 Test interpretation: by ED physician or midlevel provider: ECG, plain radiologic cp studies. Counseling: I had a detailed discussion with the patient and/or guardian regarding: the historical points, exam findings, and any diagnostic results supporting the discharge/admit diagnosis, lab results, radiology results, to return to the emergency department if symptoms worsen or persist or if there are any questions or concerns that arise at home. Response to treatment: the patient's symptoms have markedly improved after treatment, and as a result, I will discharge patient. 02/06 16: Order name: Basic Metabolic Panel; Complete Time: 17:32 cp 02/06 17:32 Interpretation: Normal except: BUN 22; GFR 70. cp 02/06 16:01 Order name: CBC with Diff; Complete Time: 17:32 cp 02/06 17:32 Interpretation: Normal except: WBC 4.9; RBC 5.71; MCH 26.7; RDW 17.3; MPV 7.4; BASO% cp 1.4. 02/06 16: Order name: Creatinine for Radiology; Complete Time: 17:32 cp 02/06 16:01 Order name: Hepatic Function; Complete Time: 17:32 cp 02/06 16:01 Order name: Lipase; Complete Time: 17:32 cp 02/06 16:05 Order name: Troponin I; Complete Time: 17:32 cp 02/06 17:45 Order name: XRAY Chest (1 view) cp 02/06 17:45 Order name: XRAY Pelvis cp 02/06 17:46 Order name: XRAY Hip RIGHT 2 view cp 02/06 16:01 Order name: IV Saline Lock; Complete Time: 16:52 cp 02/06 16:01 Order name: Labs collected and sent; Complete Time: 16:52 cp Administered Medications: 16:50 Drug: NS 0.9% 250 ml Route: IV; Rate: bolus; Site: right antecubital; em 17:20 Follow up: IV Status: Completed infusion; IV Intake: 250ml em 16:50 Drug: NS 0.9% 1000 ml Route: IV; Rate: 75 ml/hr; Site: right antecubital; em 20:10 Follow up: Response: No adverse reaction; IV Status: Completed infusion; IV Intake: ea 300ml 16:51 Drug: Zofran 4 mg Route: IVP; Site: right antecubital; iw 17:30 Follow up: Response: No adverse reaction; Nausea is decreased em 16:51 Drug: ProTONIX 40 mg Route: IVP; Site: right antecubital; iw 17:20 Follow up: Response: No adverse reaction; Pain is decreased em 16:51 Drug: TORadol 30 mg Route: IVP; Site: right antecubital; iw 17:20 Follow up: Response: No adverse reaction; Pain is decreased em Disposition: 02/06/18 19:37 Discharged to Home. Impression: Nausea, Pain in right hip, Other chronic pain. - Condition is Stable. - Discharge Instructions: Nausea, Adult, Hip Pain. - Prescriptions for Mobic 7.5 mg Oral Tablet - take 1 tablet by ORAL route once daily take with food; 20 tablet. Zofran 4 mg Oral Tablet - take 1 tablet by ORAL route every 12 hours As needed; 20 tablet. - Medication Reconciliation Form, Thank You Letter, Antibiotic Education, Prescription Opioid Use form. - Follow up: Private Physician; When: 1 - 2 days; Reason: Recheck today's complaints. - Problem is new. - Symptoms have improved. Addendum: 02/08/2018 07:16 Co-signature as Attending Physician, Vipul Castillo MD I agree with the assessment and c braden plan of care. Signatures: Dispatcher [employer] Vipul Solomon MD MD cha Munoz, Edgar, HANDMADE TILE ARTIST HANDMADE TILE ARTIST em Sapphire Benitez, RN RN Vipul Caldwell, PA PA cp Nayla Palmer RN MARYANNE ea Corrections: (The following items were deleted from the chart) 02/06 19:37 19:37 02/06/2018 19:37 Discharged to Home. Impression: Nausea; Pain in right hip. cp Condition is Stable. Forms are Medication Reconciliation Form, Thank You Letter, Antibiotic Education, Prescription Opioid Use. Follow up: Private Physician; When: 1 - 2 days; Reason: Recheck today's complaints. Problem is new. Symptoms have improved. cp 20:09 19:37 02/06/2018 19:37 Discharged to Home. Impression: Nausea; Pain in right hip; Other ea chronic pain. Condition is Stable. Forms are Medication Reconciliation Form, Thank You Letter, Antibiotic Education, Prescription Opioid Use. Follow up: Private Physician; When: 1 - 2 days; Reason: Recheck today's complaints. Problem is new. Symptoms have improved. cp
[2018-02-06 21:02] VITALS: O2SAT 99
[2018-02-06 21:04] VITALS: BP 150/70; TEMP 98
--- NOTE | 2018-02-07 09:28 | RAD REPORT ---
EXAM DESCRIPTION: RAD - Hip Right 2 View - 02/06/2018 6:57 pm CLINICAL HISTORY: PAIN COMPARISON: None FINDINGS: AP pelvis and right hip, multiple projections are submitted Right total hip arthroplasty is present. Rounded areas of lucency seen adjacent to the acetabular cup component can be seen with particle disease. Moderate left hip osteoarthritis. An acute fracture is not identified.
== END 2018-02-06 20:09 | disposition home or self-care (01) ==
LOC: ER 15:57
DX: M25.551 Pain in right hip (principal); G89.29 Other chronic pain; R11.0 Nausea; Z96.641 Presence of right artificial hip joint; Z21 Asymptomatic human immunodeficiency virus [HIV] infection status
CPT/HCPCS: 36415; 71045; 72170; 73502; 80048; 80076; 83690; 84484; 85025; 96361; 96365; 96375; 99284; C9113; J2405

== ENCOUNTER 2018-02-19 00:33 | Emergency (ER) | payer OTHER ==
[2018-02-19 01:05] LABS: Protime INR 0.94
[2018-02-19 01:06] LABS: Absolute Lymphocytes (CBC) 1.3 K/uL (0.7-4.9); Absolute Monocytes 0.7 K/uL (0.1-1.3); Absolute Neutrophil 3.1 K/uL (1.8-8.0); Eosinophils % 1.9 % (0-4.4); Hematocrit 42.7 % (39.6-49.0); Lymphocytes % 25.3 % (15.3-44.8); MCH 26.7 pg (27.0-35.0); MCV 79.8 fL (80-100); MPV 7.3 fL (7.6-11.3); Monocytes % 12.5 % (3.3-12.3); RBC Red Blood Cell Count 5.36 M/uL (4.33-5.43)
[2018-02-19 01:17] LABS: ALT/SGPT 32 U/L (12-78); AST/SGOT 31 U/L (15-37); Albumin 3.3 g/dL (3.4-5.0); Alkaline Phosphatase 89 U/L (45-117); BUN Blood Urea Nitrogen 16 mg/dL (7-18); Bicarbonate 23 mmol/L (21-32); Bilirubin Direct 0.2 mg/dL (0-0.2); Bilirubin Total 0.5 mg/dL (0.2-1.0); Glucose Level 102 mg/dL (74-106); Magnesium 2.2 mg/dL (1.8-2.4); NT PRO-BNP 127 pg/mL (<450); Protein, Total 7.1 g/dL (6.4-8.2); Sodium Level 135 mmol/L (136-145); Troponin (Emerg Dept Use Only) < 0.02 ng/mL (0.0-0.045)
[2018-02-19] MEDS ORDERED: KETOROLAC 30 MG/ML INJ ONE (01:28)
--- NOTE | 2018-02-19 02:13 | EDPHYS ---
Physician Documentation [facility] Name: Deacon Howe Jr Age: 82 yrs Sex: Male : 1935 Arrival Date: 02/19/2018 Time: 00:38 Bed 6 Private MD: ED Physician Shalom Zapata HPI: 02/19 00:41 This 82 yrs old Black Male presents to ER via Unassigned with complaints of Chest Pain. ps1 00:41 nonspecific chest pain for weeks. Seen here for same a week ago. Homeless and bad ps1 weather tonight. Numerous non-specific complaints of not feeling well. Chest pain is not different than previous. Right hip pain. No fever. Pain rated as moderate and all over. Historical: - Allergies: 00:52 NKDA; rr5 - Home Meds: 00:52 None [Active]; rr5 - PMHx: 00:52 colon cancer; HIV; Hypertension; rr5 - PSHx: 00:52 Knee surgery; hip surgery; rr5 - Immunization history:: Adult Immunizations not up to date, Flu vaccine is not up to date. - Social history:: Smoking status: Patient uses tobacco products, smokes one pack cigarettes per day. Patient uses alcohol, occasionally. Patient/guardian denies using street drugs. - Ebola Screening: : Patient negative for fever greater than or equal to 101.5 degrees Fahrenheit, and additional compatible Ebola Virus Disease symptoms Patient denies exposure to infectious person Patient denies travel to an Ebola-affected area in the 21 days before illness onset. ROS: 00:41 Constitutional: Negative for fever, chills, and weight loss, Eyes: Negative for injury, ps1 pain, redness, and discharge, Neck: Negative for injury, pain, and swelling. 00:41 Skin: Negative for injury, rash, and discoloration, Neuro: Negative for headache, weakness, numbness, tingling, and seizure. 00:41 Cardiovascular: Positive for chest pain. 00:41 Abdomen/GI: Positive for abdominal pain. 00:41 Back: Positive for pain at rest. Exam: 00:41 Constitutional: This is a well developed, well nourished patient who is awake, alert, ps1 and in no acute distress. Head/Face: Normocephalic, atraumatic. Eyes: Pupils equal round and reactive to light, extra-ocular motions intact. Lids and lashes normal. Conjunctiva and sclera are non-icteric and not injected. Chest/axilla: Normal chest wall appearance and motion. Nontender with no deformity. No lesions are appreciated. Cardiovascular: Regular rate and rhythm. No gallops, murmurs, or rubs. Normal PMI, no JVD. No pulse deficits. Respiratory: Lungs have equal breath sounds bilaterally, clear to auscultation and percussion. No rales, rhonchi or wheezes noted. No increased work of breathing, no retractions or nasal flaring. Abdomen/GI: Soft, non-tender, with normal bowel sounds. No distension or tympany. No guarding or rebound. No evidence of tenderness throughout. Neuro: Awake and alert, GCS 15, oriented to person, place, time, and situation. Cranial nerves II-XII grossly intact. Sensory grossly intact. 00:41 Psych: Behavior/mood is anxious. Vital Signs: 00:30 BP 167 / 106; Pulse 84; Resp 20; Temp 97.8; Pulse Ox 98% on R/A; Weight 74.84 kg; rr5 Height 6 ft. 2 in. (187.96 cm) (R); Pain 8/10; 01:00 BP 165 / 96; Pulse 72; Resp 18; Pulse Ox 99% on R/A; rr5 01:53 BP 162 / 96; Pulse 70; Resp 18; Pulse Ox 100% on R/A; tl2 02:28 BP 155 / 87; Pulse 75; Resp 20; Pulse Ox 98% on R/A; rr5 00:30 Body Mass Index 21.18 (74.84 kg, 187.96 cm) rr5 MDM: 00:48 Patient medically screened. ps1 02:13 Data reviewed: vital signs, nurses notes, lab test result(s), EKG, radiologic studies, ps1 and as a result, I will discharge patient. 02/19 00:41 Order name: Basic Metabolic Panel; Complete Time: ps1 02/19 00:41 Order name: CBC with Diff; Complete Time: ps1 02/19 00:41 Order name: LFT's; Complete Time: :39 ps1 02/19 00:41 Order name: Magnesium; Complete Time: ps1 02/19 00:41 Order name: NT PRO-BNP; Complete Time: :39 ps1 02/19 00:41 Order name: PT-INR; Complete Time: :39 ps1 02/19 00:41 Order name: Troponin (emerg Dept Use Only); Complete Time: :39 ps1 02/19 00:41 Order name: XRAY Chest (1 view) ps1 02/19 00:41 Order name: EKG; Complete Time: 00:46 ps1 02/19 00:41 Order name: Cardiac monitoring; Complete Time: 00:45 ps1 02/19 00:41 Order name: EKG - Nurse/Tech; Complete Time: 00:45 ps1 02/19 00:41 Order name: IV Saline Lock; Complete Time: 00:45 ps1 02/19 00:41 Order name: Labs collected and sent; Complete Time: :45 ps1 02/19 00:41 Order name: O2 Per Protocol; Complete Time: :45 ps1 02/19 00:41 Order name: O2 Sat Monitoring; Complete Time: 00:45 ps1 EC:26 Rate is 80 beats/min. Rhythm is regular. QRS [place] is Normal. NH interval is normal. QRS ps1 interval is normal. QT interval is normal. No Q waves. T waves are Normal. No ST changes noted. Clinical impression: Normal ECG. Interpreted by me. Administered Medications: 01:00 Drug: TORadol 30 mg Route: IVP; Site: right hand; rr5 02:25 Follow up: Response: No adverse reaction; Marked relief of symptoms rr5 Disposition: 02/19/18 02:12 Discharged to Home. Impression: Other chronic pain, Other chest pain, Nausea with vomiting, unspecified. - Condition is Stable. - Discharge Instructions: Chronic Pain. - Medication Reconciliation Form, Thank You Letter, Antibiotic Education, Prescription Opioid Use form. - Follow up: Private Physician; When: As needed; Reason: Recheck today's complaints, Continuance of care, Re-evaluation by your physician. Follow up: Emergency Department; When: As needed; Reason: Worsening of condition. - Problem is chronic. - Symptoms are unchanged. Signatures: Dispatcher [employer] EDMS Shalom Zapata MD MD ps1 Byron Rai RN RN rr5 Corrections: (The following items were deleted from the chart) 02:38 02:12 02/19/2018 02:12 Discharged to Home. Impression: Other chronic pain; Other chest rr5 pain; Nausea with vomiting, unspecified. Condition is Stable. Forms are Medication Reconciliation Form, Thank You Letter, Antibiotic Education, Prescription Opioid Use. Follow up: Private Physician; When: As needed; Reason: Recheck today's complaints, Continuance of care, Re-evaluation by your physician. Follow up: Emergency Department; When: As needed; Reason: Worsening of condition. Problem is chronic. Symptoms are unchanged. ps1
--- NOTE | 2018-02-19 02:13 | ER ---
Nurse's Notes [facility] Name: Deacon Howe Jr Age: 82 yrs Sex: Male : 1935 Arrival Date: 02/19/2018 Time: 00:38 Bed 6 Private MD: Diagnosis: Other chronic pain;Other chest pain;Nausea with vomiting, unspecified Presentation: 02/19 00:30 Presenting complaint: EMS states: central chest pain and abdominal pain started 1700 rr5 yesterday pain score of 8/10. 00:30 Transition of care: patient was not received from another setting of care. Onset of rr5 symptoms was January 19, 2018. Risk Assessment: Do you want to hurt yourself or someone else? Patient reports no desire to harm self or others. Initial Sepsis Screen: Does the patient meet any 2 criteria? No. Patient's initial sepsis screen is negative. Does the patient have a suspected source of infection? No. Patient's initial sepsis screen is negative. Note patient took one can of beer at 0000H as claimed. Care prior to arrival: None. 00:30 Method Of Arrival: EMS: [facility] rr5 00:30 Acuity: ALIN 3 rr5 Triage Assessment: 00:30 General: Appears in no apparent distress. uncomfortable, Behavior is calm, cooperative, rr5 appropriate for age. Pain: Complains of pain in chest Pain currently is 8 out of 10 on a pain scale. Quality of pain is described as aching, Pain began gradually. 00:30 EENT: No signs and/or symptoms were reported regarding the EENT system. Neuro: Level of rr5 Consciousness is awake, alert, obeys commands, Oriented to person, place, time. Cardiovascular: Capillary refill < 3 seconds Patient's skin is warm and dry. Rhythm is sinus rhythm. Respiratory: Airway is patent Respiratory effort is even, unlabored, Respiratory pattern is regular, symmetrical. GI: Reports upper abdominal pain. : No signs and/or symptoms were reported regarding the genitourinary system. Derm: No signs and/or symptoms reported regarding the dermatologic system. Musculoskeletal: No signs and/or symptoms reported regarding the musculoskeletal system. Historical: - Allergies: 00:52 NKDA; rr5 - Home Meds: 00:52 None [Active]; rr5 - PMHx: 00:52 colon cancer; HIV; Hypertension; rr5 - PSHx: 00:52 Knee surgery; hip surgery; rr5 - Immunization history:: Adult Immunizations not up to date, Flu vaccine is not up to date. - Social history:: Smoking status: Patient uses tobacco products, smokes one pack cigarettes per day. Patient uses alcohol, occasionally. Patient/guardian denies using street drugs. - Ebola Screening: : Patient negative for fever greater than or equal to 101.5 degrees Fahrenheit, and additional compatible Ebola Virus Disease symptoms Patient denies exposure to infectious person Patient denies travel to an Ebola-affected area in the 21 days before illness onset. Screenin:54 Abuse screen: Denies threats or abuse. Nutritional screening: No deficits noted. tl2 Tuberculosis screening: No symptoms or risk factors identified. Fall Risk IV access (20 points). Assessment: 00:30 Reassessment: see triage assessment. rr5 00:30 Pain: Pain does not radiate. rr5 01:20 Reassessment: Patient and/or family updated on plan of care and expected duration. Pain ea level reassessed. Resting with eyes closed, respirations even and unlabored, chest expansions even and symmetrical. 02:27 Reassessment: Patient appears in no apparent distress at this time. discharge rr5 instruction given and explained to patient without question ask Patient states feeling better. Patient states symptoms have improved. Vital Signs: 00:30 BP 167 / 106; Pulse 84; Resp 20; Temp 97.8; Pulse Ox 98% on R/A; Weight 74.84 kg; rr5 Height 6 ft. 2 in. (187.96 cm) (R); Pain 8/10; 01:00 BP 165 / 96; Pulse 72; Resp 18; Pulse Ox 99% on R/A; rr5 01:53 BP 162 / 96; Pulse 70; Resp 18; Pulse Ox 100% on R/A; tl2 02:28 BP 155 / 87; Pulse 75; Resp 20; Pulse Ox 98% on R/A; rr5 00:30 Body Mass Index 21.18 (74.84 kg, 187.96 cm) rr5 ED Course: 00:30 casing tester on. Pulse ox on. NIBP on. rr5 00:30 Patient has correct armband on for positive identification. Placed in gown. Bed in low rr5 position. Call light in reach. 00:30 Patient rest. rr5 00:35 Inserted saline lock: 20 gauge in right forearm, using aseptic technique. Blood rr5 collected. 00:38 Patient arrived in ED. aa1 00:38 Shalom Zapata MD is Attending Physician. ps1 00:45 Byron Rai, RN is Primary Nurse. rr5 00:51 Triage completed. rr5 01:12 X-ray completed. Portable x-ray completed in exam room. Patient tolerated procedure sg4 well. 01:13 XRAY Chest (1 view) In Process Unspecified. EDMS 01:54 Patient maintains SpO2 saturation greater than 95% on room air. tl2 02:29 No provider procedures requiring assistance completed. IV discontinued, intact, rr5 bleeding controlled, No redness/swelling at site. Pressure dressing applied. Administered Medications: 01:00 Drug: TORadol 30 mg Route: IVP; Site: right hand; rr5 02:25 Follow up: Response: No adverse reaction; Marked relief of symptoms rr5 Outcome: 02:12 Discharge ordered by MD. ps1 02:29 Discharged to home ambulatory. rr5 02:29 Condition: stable 02:29 Discharge instructions given to patient, Instructed on discharge instructions, follow up and referral plans. Demonstrated understanding of instructions, follow-up care. 02:38 Patient left the ED. rr5 Signatures: Dispatcher [employer] EDMO Jeane Coronado, RN RN aa1 Gaby De Guzman, RN RN tl2 Nayla Palmer RN RN ea Singer, Phillip, MD MD ps1 Faiza Stack sgByron Song, RN RN rr5
[2018-02-19 02:51] VITALS: BP 155/87; O2SAT 98
--- NOTE | 2018-02-19 09:46 | RAD REPORT ---
EXAM DESCRIPTION: [place] Single View02/19/2018 1:14 am CLINICAL HISTORY: Chest pain COMPARISON: January 2018 FINDINGS: Right pleural calcifications and parenchymal scarring unchanged. The lungs appear clear of acute infiltrate. The heart is normal size IMPRESSION: No acute abnormalities displayed
--- NOTE | 2018-02-21 07:15 | EKG ---
Test Date: 2018-02-19 Test Time: 00:26:37 Maintenance Team Leader: AVINASH MEASUREMENT RESULTS: Intervals: Rate: 80 HI: 174 QRSD: 84 QT: 362 QTc: 417 [place]: P: 70 HI: 174 QRS: 87 T: 71 INTERPRETIVE STATEMENTS: Normal sinus rhythm Normal ECG Compared to ECG 02/04/2018 05:13:20 Sinus bradycardia no longer present Sinus arrhythmia no longer present Electronically Signed On 02-21-18 07:11:23 [employer] by Rocco Menjivar
== END 2018-02-19 02:38 | disposition home or self-care (01) ==
LOC: ER 00:33
DX: G89.29 Other chronic pain (principal); R07.89 Other chest pain; R11.2 Nausea with vomiting, unspecified; Z21 Asymptomatic human immunodeficiency virus [HIV] infection status; F17.210 Nicotine dependence, cigarettes, uncomplicated; Z59.0 Homelessness
CPT/HCPCS: 36415; 71045; 80048; 80076; 83735; 83880; 84484; 85025; 85610; 93005; 96374; 99285

== ENCOUNTER 2018-03-13 18:00 | Emergency (ER) | payer OTHER ==
[2018-03-13 20:16] LABS: Absolute Lymphocytes (CBC) 1.1 K/uL (0.7-4.9); Absolute Monocytes 0.6 K/uL (0.1-1.3); Absolute Neutrophil 3.9 K/uL (1.8-8.0); Basophils % 0.7 % (0-1.3); Eosinophils % 1.1 % (0-4.4); Hematocrit 45.7 % (39.6-49.0); Lymphocytes % 18.6 % (15.3-44.8); MPV 7.2 fL (7.6-11.3); Monocytes % 9.8 % (3.3-12.3); RBC Red Blood Cell Count 5.76 M/uL (4.33-5.43)
--- NOTE | 2018-03-13 20:24 | RAD REPORT ---
EXAM DESCRIPTION: RAD - Chest Single View - 03/13/2018 7:58 pm CLINICAL HISTORY: CHEST PAIN Chest pain. COMPARISON: Chest Single View dated 02/19/2018; Chest Single View dated 02/06/2018; Chest Single View dated 12/02/2017; Abdomen 1 View (KUB) dated 08/25/2017 FINDINGS: Portable technique limits examination quality. Chronic right pleural and parenchymal opacities are again noted, unchanged. No focal lung infiltrate. The lungs appear emphysematous. The heart is normal in size. Tortuous thoracic aorta. IMPRESSION: No acute intrathoracic process suspected.
--- NOTE | 2018-03-13 20:24 | RAD REPORT ---
EXAM DESCRIPTION: RAD - Hip Right 2 View - 03/13/2018 7:59 pm CLINICAL HISTORY: PAIN COMPARISON: Hip Right 2 View dated 02/06/2018 FINDINGS: Right total hip arthroplasty is noted. Stable area of lucency is seen along the inferior m argin of the acetabular cup, which can indicate particle disease. No acute fractures seen.
[2018-03-13 20:25] LABS: Protime INR 0.98
[2018-03-13 20:49] LABS: ALT/SGPT 28 U/L (12-78); AST/SGOT 26 U/L (15-37); Albumin 3.4 g/dL (3.4-5.0); Alkaline Phosphatase 98 U/L (45-117); BUN Blood Urea Nitrogen 21 mg/dL (7-18); Bicarbonate 25 mmol/L (21-32); Bilirubin Direct 0.2 mg/dL (0-0.2); Bilirubin Total 0.5 mg/dL (0.2-1.0); Glucose Level 89 mg/dL (74-106); Magnesium 2.2 mg/dL (1.8-2.4); NT PRO-BNP 276 pg/mL (<450); Potassium 4.6 mmol/L (3.5-5.1); Protein, Total 7.6 g/dL (6.4-8.2); Sodium Level 134 mmol/L (136-145); Troponin (Emerg Dept Use Only) < 0.02 ng/mL (0.0-0.045)
--- NOTE | 2018-03-13 21:20 | ER ---
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 Onset of tw2 symptoms was March 13, 2018. Risk Assessment: Do you want to hurt yourself or someone else? Patient reports no desire to harm self or others. Initial Sepsis Screen: Does the patient meet any 2 criteria? No. Patient's initial sepsis screen is negative. Does the patient have a suspected source of infection? No. Patient's initial sepsis screen is negative. Care prior to arrival: None. 18:12 Acuity: ALIN 3 tw2 18:29 Presenting complaint: Patient states: i started hurting yesterday, my right side and my tw2 stomach and i have been throwing up. Triage Assessment: 18:12 General: Appears in no apparent distress. unkempt, Behavior is cooperative. Pain: tw2 Complains of pain in abdomen. Historical: - Allergies: 18:31 NKDA; tw2 - PMHx: 18:31 colon cancer; HIV; Hypertension; tw2 - PSHx: 18:31 hip surgery; Knee surgery; tw2 - Immunization history:: Adult Immunizations. - Social history:: Smoking status: . - Ebola Screening: : Patient denies travel to an Ebola-affected area in the 21 days before illness onset. Screenin:45 Abuse screen: Denies threats or abuse. Denies injuries from another. Nutritional kr2 screening: No deficits noted. Tuberculosis screening: No symptoms or risk factors identified. Fall Risk None identified. Assessment: 19:00 General: Appears in no apparent distress. uncomfortable, Behavior is cooperative, kr2 agitated. Pain: Complains of pain in "all over" Pain does not radiate. Pain currently is 6 out of 10 on a pain scale. Quality of pain is described as aching, Is continuous, Alleviated by rest. Neuro: Level of Consciousness is awake, alert, obeys commands, Oriented to person, place, time, situation, Appropriate for age. Cardiovascular: Patient's skin is warm and dry. Rhythm is regular. Respiratory: Airway is patent Respiratory effort is even, unlabored, Respiratory pattern is regular, symmetrical. GI: Abdomen is flat, non-distended, Abd is soft and non tender X 4 quads. : Urine is clear. EENT: Oral mucosa is moist. Derm: Skin is intact, with poor turgor Skin is pink, warm \\T\\ dry. Musculoskeletal: Circulation, motion, and sensation intact. 20:00 Reassessment: Patient appears in no apparent distress at this time. Patient and/or kr2 family updated on plan of care and expected duration. Pain level reassessed. Patient is alert, oriented x 3, equal unlabored respirations, skin warm/dry/pink. Patient states feeling better. 21:00 Reassessment: Patient appears in no apparent distress at this time. Patient and/or kr2 family updated on plan of care and expected duration. Pain level reassessed. Patient is alert, oriented x 3, equal unlabored respirations, skin warm/dry/pink. Patient given extra blankets and juice as requested. Denies having any further needs Patient states feeling better. 21:35 Reassessment: Patient appears in no apparent distress at this time. Patient and/or kr2 family updated on plan of care and expected duration. Pain level reassessed. Patient is alert, oriented x 3, equal unlabored respirations, skin warm/dry/pink. Vital Signs: 18:30 BP 118 / 80; Pulse 82; Resp 17; Temp 98.2(TE); Pulse Ox 100% on R/A; Pain 8/10; tw2 20:30 BP 124 / 78; Pulse 80; Resp 16; Pulse Ox 99% on R/A; kr2 21:30 BP 120 / 84; Pulse 84; Resp 16; Pulse Ox 100% ; kr2 ED Course: 18:02 Patient arrived in ED. tw3 18:30 Triage completed. tw2 18:30 Arm band placed on. tw2 18:45 Patient has correct armband on for positive identification. Bed in low position. Call kr2 light in reach. Side rails up X2. hall monitor on. Pulse ox on. NIBP on. Door closed. Warm blanket given. Head of bed elevated. 18:58 Derian Corrales MD is Attending Physician. gs 19:56 X-ray completed. Portable x-ray completed in exam room. Patient tolerated procedure sg4 well. 19:59 XRAY Chest (1 view) In Process Unspecified. EDMS 19:59 Hip Right 2 View XRAY In Process Unspecified. EDMS 20:03 Inserted saline lock: 22 gauge in left wrist, using aseptic technique. la1 21:18 Jan Castellon MD is Referral Physician. gs 21:40 No provider procedures requiring assistance completed. IV discontinued, intact, kr2 bleeding controlled, No redness/swelling at site. Pressure dressing applied. Administered Medications: No medications were administered Outcome: 21:19 Discharge ordered by MD. gs 21:40 Discharged to [facility], patient states he will call someone to pick him up kr2 21:40 Condition: good 21:40 Discharge instructions given to patient, Instructed on discharge instructions, follow up and referral plans. medication usage, Demonstrated understanding of instructions, follow-up care, medications, Prescriptions given X 1. 21:47 Patient left the ED. kr2 Signatures: Dispatcher [employer] EDMS Crow Her, RN RN la1 Juana Hanson RN RN tw2 Yesica Lundberg tw3 Derian Corrales MD MD Misty Gonzáles RN RN kr2 Faiza Stack sg4
--- NOTE | 2018-03-13 21:20 | EDPHYS ---
Physician Documentation [facility] Name: Deacon Howe Jr Age: 82 yrs Sex: Male : 1935 Arrival Date: 03/13/2018 Time: 18:02 Bed 28 Private MD: ED Physician Derian Corrales HPI: 03/13 21:15 This 82 yrs old Black Male presents to ER via EMS with complaints of Pain All Over. gs 21:15 The patient or guardian reports chest pain that is located primarily in the anterior gs chest wall. Onset: 2 day(s) ago. The pain does not radiate. Associated signs and symptoms: Pertinent negatives: shortness of breath. The chest pain is described as dull. Duration: The patient or guardian reports multiple episodes, that wax and wane, with no pattern, the episodes last approximately 1 minute(s). Modifying factors: The symptoms are alleviated by nothing. the symptoms are aggravated by nothing. Severity of pain: At its worst the pain was moderate in the emergency department the pain has resolved. The patient has experienced similar episodes in the past, several times. also r hip pain. Historical: - Allergies: 18:31 NKDA; tw2 - PMHx: 18:31 colon cancer; HIV; Hypertension; tw2 - PSHx: 18:31 hip surgery; Knee surgery; tw2 - Immunization history:: Adult Immunizations. - Social history:: Smoking status: . - Ebola Screening: : Patient denies travel to an Ebola-affected area in the 21 days before illness onset. ROS: 21:15 All other systems are negative. gs Exam: 21:15 Head/Face: Normocephalic, atraumatic. Eyes: Pupils equal round and reactive to light, gs extra-ocular motions intact. Lids and lashes normal. Conjunctiva and sclera are non-icteric and not injected. Cornea within normal limits. Periorbital areas with no swelling, redness, or edema. ENT: Nares patent. No nasal discharge, no septal abnormalities noted. Tympanic membranes are normal and external auditory canals are clear. Oropharynx with no redness, swelling, or masses, exudates, or evidence of obstruction, uvula midline. Mucous membranes moist. Neck: Trachea midline, no thyromegaly or masses palpated, and no cervical lymphadenopathy. Supple, full range of motion without nuchal rigidity, or vertebral point tenderness. No Meningismus. Chest/axilla: Normal chest wall appearance and motion. Nontender with no deformity. No lesions are appreciated. Cardiovascular: Regular rate and rhythm with a normal S1 and S2. No gallops, murmurs, or rubs. Normal PMI, no JVD. No pulse deficits. Respiratory: Lungs have equal breath sounds bilaterally, clear to auscultation and percussion. No rales, rhonchi or wheezes noted. No increased work of breathing, no retractions or nasal flaring. Abdomen/GI: Soft, non-tender, with normal bowel sounds. No distension or tympany. No guarding or rebound. No evidence of tenderness throughout. Back: No spinal tenderness. No costovertebral tenderness. Full range of motion. Skin: Warm, dry with normal turgor. Normal color with no rashes, no lesions, and no evidence of cellulitis. Neuro: Awake and alert, GCS 15, oriented to person, place, time, and situation. Cranial nerves II-XII grossly intact. Motor strength 5/5 in all extremities. Sensory grossly intact. Cerebellar exam normal. Normal gait. 21:15 Constitutional: The patient appears alert, awake. 21:15 Musculoskeletal/extremity: Joints: the right hip displays painful range of motion, tenderness. 21:15 ECG was reviewed by the Attending Physician. Vital Signs: 18:30 BP 118 / 80; Pulse 82; Resp 17; Temp 98.2(TE); Pulse Ox 100% on R/A; Pain 8/10; tw2 20:30 BP 124 / 78; Pulse 80; Resp 16; Pulse Ox 99% on R/A; kr2 21:30 BP 120 / 84; Pulse 84; Resp 16; Pulse Ox 100% ; kr2 MDM: 19:12 Patient medically screened. gs 21:15 Differential diagnosis: abnormal EKG, coronary artery disease chest wall pain, gs esophagitis. Data reviewed: vital signs, nurses notes. Counseling: I had a detailed discussion with the patient and/or guardian regarding: the historical points, exam findings, and any diagnostic results supporting the discharge/admit diagnosis, lab results, radiology results, the need for outpatient follow up. Response to treatment: the patient's symptoms have resolved after treatment, and as a result, I will discharge patient. 03/13 19:13 Order name: Basic Metabolic Panel; Complete Time: :05 03/13 19:13 Order name: CBC with Diff; Complete Time: 20:36 gs 03/13 19:13 Order name: LFT's; Complete Time: 21:05 03/13 19:13 Order name: Magnesium; Complete Time: 21:05 03/13 19:13 Order name: NT PRO-BNP; Complete Time: 21:05 03/13 19:13 Order name: PT-INR; Complete Time: 20:36 03/13 19:13 Order name: Troponin (emerg Dept Use Only); Complete Time: 21:05 gs 03/13 19:13 Order name: XRAY Chest (1 view); Complete Time: 20:36 gs 03/13 19:13 Order name: EKG; Complete Time: 19:14 03/13 19:13 Order name: Cardiac monitoring; Complete Time: 20:32 gs 03/13 19:13 Order name: EKG - Nurse/Tech; Complete Time: 21:45 03/13 19:13 Order name: IV Saline Lock; Complete Time: 20:32 gs 03/13 19:13 Order name: Labs collected and sent; Complete Time: 20:32 gs 03/13 19:13 Order name: Hip Right 2 View XRAY; Complete Time: 20:36 03/13 19:13 Order name: O2 Per Protocol; Complete Time: 20:33 03/13 19:13 Order name: O2 Sat Monitoring; Complete Time: 20:33 gs EC:15 Rate is 73 beats/min. Rhythm is regular. IA interval is normal. Q waves are Old in lead gs aVL. T waves are Normal. No ST changes noted. Clinical impression: Abnormal EKG without significant change. Interpreted by me. Administered Medications: No medications were administered Disposition: 03/13/18 21:19 Discharged to Home. 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 - Condition is Stable. - Discharge Instructions: Nonspecific Chest Pain, Hip Pain. - Prescriptions for Tylenol- Codeine #4 300-60 mg Oral Tablet - take 1 tablet by ORAL route every 8 hours As needed; 8 tablet. - Medication Reconciliation Form, Thank You Letter, Antibiotic Education, Prescription Opioid Use form. - Follow up: Private Physician; When: 2 - 3 days; Reason: Re-evaluation by your physician. Follow up: Jan Castellon MD; When: 2 - 3 days; Reason: Re-evaluation by your physician. Signatures: Dispatcher [employer] Juana Beth RN RN tw2 Derian Corrales MD MD Misty Gonzáles RN RN kr2 Corrections: (The following items were deleted from the chart) 21:47 21:19 03/13/2018 21:19 Discharged to Home. 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 Condition is Stable. Forms are Medication Reconciliation Form, Thank You Letter, Antibiotic Education, Prescription Opioid Use. Follow up: Private Physician; When: 2 - 3 days; Reason: Re-evaluation by your physician. Follow up: Jan Castellon; When: 2 - 3 days; Reason: Re-evaluation by your physician. gs
[2018-03-13 22:59] VITALS: BP 118/80; TEMP 98.2; O2SAT 100
--- NOTE | 2018-03-14 07:38 | EKG ---
Test Date: 2018-03-13 Test Time: 21:02:07 Kitchen And Bath Designer: MEASUREMENT RESULTS: Intervals: Rate: 73 CA: 164 QRSD: 78 QT: 362 QTc: 398 [place]: P: 32 CA: 164 QRS: 84 T: 78 INTERPRETIVE STATEMENTS: Normal sinus rhythm Normal ECG Compared to ECG 02/19/2018 00:26:37 No significant changes Electronically Signed On 03-14-18 07:37:55 SENIOR CONTROLLER by Maurice Martin
== END 2018-03-13 21:47 | disposition home or self-care (01) ==
LOC: ER 18:00
DX: T84.050A Periprosthetic osteolysis of internal prosthetic right hip joint, initial encounter (principal); I10 Essential (primary) hypertension; Z21 Asymptomatic human immunodeficiency virus [HIV] infection status; Z85.038 Personal history of other malignant neoplasm of large intestine
CPT/HCPCS: 36415; 71045; 80048; 80076; 83735; 83880; 84484; 85025; 85610; 93005; 99284

== ENCOUNTER 2018-03-20 | Emergency (ER) | payer OTHER ==
[2018-03-20] MEDS ORDERED: ONDANSETRON 4 MG/2 ML VIAL ONE (00:50)
[2018-03-20] MEDS ORDERED: FENTANYL CITR 100 MCG/2 ML ONE (00:50)
[2018-03-20 02:46] LABS: Absolute Monocytes 0.4 K/uL (0.1-1.3); Absolute Neutrophil 3.8 K/uL (1.8-8.0); Basophils % 0.8 % (0-1.3); Eosinophils % 0.6 % (0-4.4); Hematocrit 45.1 % (39.6-49.0); Lymphocytes % 18.7 % (15.3-44.8); MPV 7.5 fL (7.6-11.3); Monocytes % 8.3 % (3.3-12.3); RBC Red Blood Cell Count 5.68 M/uL (4.33-5.43)
[2018-03-20 02:51] LABS: Urine Bacteria <20 /HPF (NONE SEEN); Urine Culture Reflex Order NOT NEEDED; Urine RBC NONE SEEN /HPF (NONE SEEN)
[2018-03-20 02:56] LABS: Albumin 3.2 g/dL (3.4-5.0); Bilirubin Direct 0.2 mg/dL (0-0.2); Bilirubin Total 0.5 mg/dL (0.2-1.0); Potassium 4.7 mmol/L (3.5-5.1)
[2018-03-20 03:06] LABS: Blood Morphology Comment NOTED (NOT SEEN); Platelet Estimate ADEQ; Target Cells FEW; Urine White Blood Cell Casts OK
[2018-03-20 03:21] LABS: Barbiturates NEGATIVE (NEGATIVE); Benzodiazepines NEGATIVE (NEGATIVE); Cocaine POSITIVE (NEGATIVE); METHAMPHETAM NEGATIVE (NEGATIVE); Methadone NEGATIVE (NEGATIVE); Opiates NEGATIVE (NEGATIVE); Phencyclidine NEGATIVE (NEGATIVE); THC Cannibis NEGATIVE (NEGATIVE)
--- NOTE | 2018-03-20 03:53 | EDPHYS ---
Physician Documentation [facility] Name: Deacon Howe Jr Age: 82 yrs Sex: Male : 1935 Arrival Date: 03/20/2018 Time: 00:09 Bed 18 Private MD: ED Physician Darvin Logan HPI: 03/20 00:49 This 82 yrs old Black Male presents to ER via EMS with complaints of Abdominal Pain. wa 00:49 The patient presents with abdominal pain. Onset: The symptoms/episode began/occurred wa today. The symptoms do not radiate. Associated signs and symptoms: none. The symptoms are described as achy. Modifying factors: The symptoms are alleviated by nothing, the symptoms are aggravated by nothing. Severity of pain: At its worst the pain was moderate in the emergency department the pain is unchanged. The patient has experienced similar episodes in the past, several times. The patient has not recently seen a physician. Historical: - Allergies: 00:14 NKDA; rr5 - PMHx: 00:14 colon cancer; HIV; Hypertension; Hepatitis; rr5 - Immunization history:: Adult Immunizations not up to date. - Social history:: Smoking status: Patient uses tobacco products, smokes one-half pack cigarettes per day, Patient uses alcohol, Patient/guardian denies using street drugs. - Ebola Screening: : Patient negative for fever greater than or equal to 101.5 degrees Fahrenheit, and additional compatible Ebola Virus Disease symptoms Patient denies exposure to infectious person Patient denies travel to an Ebola-affected area in the 21 days before illness onset. - Family history:: not pertinent. - Hospitalizations: : No recent hospitalization is reported. ROS: 00:51 Constitutional: Negative for fever, chills, and weight loss, Eyes: Negative for injury, wa pain, redness, and discharge, ENT: Negative for injury, pain, and discharge, Neck: Negative for injury, pain, and swelling, Cardiovascular: Negative for chest pain, palpitations, and edema, Respiratory: Negative for shortness of breath, cough, wheezing, and pleuritic chest pain, Back: Negative for injury and pain, : Negative for injury, bleeding, discharge, and swelling, MS/Extremity: Negative for injury and deformity, Skin: Negative for injury, rash, and discoloration, Neuro: Negative for headache, weakness, numbness, tingling, and seizure. 00:51 Abdomen/GI: Positive for abdominal pain, Negative for nausea, vomiting, diarrhea. Exam: 00:51 Constitutional: This is a well developed, well nourished patient who is awake, alert, wa and in no acute distress. Head/Face: Normocephalic, atraumatic. Eyes: Pupils equal round and reactive to light, extra-ocular motions intact. Lids and lashes normal. Conjunctiva and sclera are non-icteric and not injected. Cornea within normal limits. Periorbital areas with no swelling, redness, or edema. ENT: Nares patent. No nasal discharge, no septal abnormalities noted. Tympanic membranes are normal and external auditory canals are clear. Oropharynx with no redness, swelling, or masses, exudates, or evidence of obstruction, uvula midline. Mucous membranes moist. Neck: Trachea midline, no thyromegaly or masses palpated, and no cervical lymphadenopathy. Supple, full range of motion without nuchal rigidity, or vertebral point tenderness. No Meningismus. Chest/axilla: Normal chest wall appearance and motion. Nontender with no deformity. No lesions are appreciated. Cardiovascular: Regular rate and rhythm with a normal S1 and S2. No gallops, murmurs, or rubs. Normal PMI, no JVD. No pulse deficits. Respiratory: Lungs have equal breath sounds bilaterally, clear to auscultation and percussion. No rales, rhonchi or wheezes noted. No increased work of breathing, no retractions or nasal flaring. Back: No spinal tenderness. No costovertebral tenderness. Full range of motion. Skin: Warm, dry with normal turgor. Normal color with no rashes, no lesions, and no evidence of cellulitis. MS/ Extremity: Pulses equal, no cyanosis. Neurovascular intact. Full, normal range of motion. Neuro: Awake and alert, GCS 15, oriented to person, place, time, and situation. Cranial nerves II-XII grossly intact. Motor strength 5/5 in all extremities. Sensory grossly intact. Cerebellar exam normal. Normal gait. Psych: Awake, alert, with orientation to person, place and time. Behavior, mood, and affect are within normal limits. 00:51 Abdomen/GI: Inspection: abdomen appears normal, Bowel sounds: normal, in all quadrants, Palpation: moderate abdominal tenderness, in all quadrants, in the diffuse. Vital Signs: 00:12 BP 183 / 97; Pulse 71; Resp 20; Temp 97.7; Pulse Ox 100% ; Weight 74.84 kg; Height 6 rr5 ft. 1 in. (185.42 cm); Pain 8/10; 01:00 BP 155 / 75; Pulse 70; Resp 19; Pulse Ox 98% ; rr5 02:00 BP 151 / 88; Pulse 65; Resp 19; Pulse Ox 99% ; rr5 03:00 BP 142 / 75; Pulse 76; Resp 20; Pulse Ox 99% ; rr5 04:00 BP 146 / 71; Pulse 71; Resp 17; Pulse Ox 99% ; rr5 00:12 Body Mass Index 21.77 (74.84 kg, 185.42 cm) rr5 MDM: 00:14 Patient medically screened. wa 00:52 Differential diagnosis: abd pain in elderly man. will work up and reassess. wa 03:51 Data reviewed: vital signs, nurses notes, lab test result(s), radiologic studies. Test wa interpretation: by ED physician or midlevel provider: UDS positive for cocaine. CT abd/plevis: no acute process. Response to treatment: the patient's symptoms have markedly improved after treatment. 03:56 Test interpretation: by ED physician or midlevel provider: EKG: HR 67. noted PACs. pr 03/20 00:39 Order name: Basic Metabolic Panel; Complete Time: 03:50 pr 03/20 00:39 Order name: CBC with Diff; Complete Time: 03:50 pr 03/20 00:39 Order name: Hepatic Function; Complete Time: 03:50 pr 03/20 00:39 Order name: Lipase; Complete Time: 03:50 pr 03/20 00:39 Order name: Urine Microscopic Only; Complete Time: 03:50 pr 03/20 00:53 Order name: Lactate; Complete Time: 03:50 pr 03/20 00:39 Order name: CT Abd/Pelvis - Without Cont pr 03/20 00:53 Order name: UDS; Complete Time: 03:50 pr 03/20 02:49 Order name: CBC Smear Scan; Complete Time: 03:50 EDNY 03/20 04:03 Order name: Urine Dipstick--Ancillary (enter results) em1 03/20 00:39 Order name: Labs collected and sent; Complete Time: 02:41 pr 03/20 00:39 Order name: Urine Dipstick-Ancillary (obtain specimen); Complete Time: 02:41 pr 03/20 00:53 Order name: EKG; Complete Time: 00:54 pr 03/20 00:53 Order name: EKG - Nurse/Tech; Complete Time: 03:11 pr Administered Medications: 02:30 Drug: Zofran 4 mg Route: IM; Site: left gluteus; rr5 04:20 Follow up: Response: No adverse reaction rr5 02:32 Drug: fentaNYL (PF) 25 mcg Route: IM; Site: right gluteus; rr5 04:20 Follow up: Response: No adverse reaction rr5 02:38 Not Given (Other Intervention Used): fentaNYL (PF) 50 mcg IVP once rr5 02:38 Not Given (Other Intervention Used): Zofran 4 mg IVP once; over 2 minutes rr5 Disposition: 03/20/18 03:53 Discharged to Home. Impression: acute abdominal pain. - Condition is Stable. - Prescriptions for Pepcid 20 mg Oral Tablet - take 1 tablet by ORAL route once daily for 10 days; 10 tablet. Tylenol- Codeine #3 300-30 mg Oral Tablet - take 1 tablet by ORAL route every 6 hours As needed; 6 tablet. - Medication Reconciliation Form, Thank You Letter, Antibiotic Education, Prescription Opioid Use form. - Follow up: Darvin Rocha MD; When: 2 - 3 days; Reason: Re-evaluation by your physician. - Problem is new. - Symptoms have improved. - Notes: quit smoking cocaine. follow up with the abdomen doctor for further evaluation of your belly pain Signatures: Dispatcher [employer] EDNY Darvin Logan MD MD wa Roque, Raymond RN RN rr5 Corrections: (The following items were deleted from the chart) 04:26 03:53 03/20/2018 03:53 Discharged to Home. Impression: acute abdominal pain. Condition rr5 is Stable. Forms are Medication Reconciliation Form, Thank You Letter, Antibiotic Education, Prescription Opioid Use. Follow up: Darvin Rocha; When: 2 - 3 days; Reason: Re-evaluation by your physician. Problem is new. Symptoms have improved. wa
--- NOTE | 2018-03-20 03:53 | ER ---
Nurse's Notes [facility] Name: Deacon Howe Jr Age: 82 yrs Sex: Male : 1935 Arrival Date: 03/20/2018 Time: 00:09 Bed 18 Private MD: Diagnosis: acute abdominal pain Presentation: 03/20 00:09 Presenting complaint: EMS states: complaining of abdominal pain started around 1600 rr5 yesterday. Transition of care: [facility]. Onset of symptoms was March 19, 2018. Risk Assessment: Do you want to hurt yourself or someone else? Patient reports no desire to harm self or others. Initial Sepsis Screen: Does the patient meet any 2 criteria? No. Patient's initial sepsis screen is negative. Does the patient have a suspected source of infection? No. Patient's initial sepsis screen is negative. Note patient stated he vomited several times, had few drinks of whisky and beer. Care prior to arrival: None. 00:09 Method Of Arrival: EMS: [facility] rr5 00:09 Acuity: ALIN 3 rr5 Historical: - Allergies: 00:14 NKDA; rr5 - PMHx: 00:14 colon cancer; HIV; Hypertension; Hepatitis; rr5 - Immunization history:: Adult Immunizations not up to date. - Social history:: Smoking status: Patient uses tobacco products, smokes one-half pack cigarettes per day, Patient uses alcohol, Patient/guardian denies using street drugs. - Ebola Screening: : Patient negative for fever greater than or equal to 101.5 degrees Fahrenheit, and additional compatible Ebola Virus Disease symptoms Patient denies exposure to infectious person Patient denies travel to an Ebola-affected area in the 21 days before illness onset. - Family history:: not pertinent. - Hospitalizations: : No recent hospitalization is reported. Screenin:10 Abuse screen: Denies threats or abuse. Denies injuries from another. Nutritional rr5 screening: No deficits noted. Tuberculosis screening: No symptoms or risk factors identified. Fall Risk IV access (20 points). Total Pedroza Fall Scale indicates No Risk (0-24 pts). Assessment: 00:30 General: Appears in no apparent distress. uncomfortable, ill, Behavior is calm, rr5 cooperative, appropriate for age. Pain: Complains of pain in abdomen Pain does not radiate. Pain currently is 8 out of 10 on a pain scale. Quality of pain is described as aching, Pain began gradually, Is intermittent. Neuro: Level of Consciousness is awake, alert, obeys commands, Oriented to person, place, time, situation, Appropriate for age. Cardiovascular: Capillary refill < 3 seconds Patient's skin is warm and dry. 00:30 Respiratory: Airway is patent Respiratory effort is even, unlabored, Respiratory rr5 pattern is regular, symmetrical. GI: Abdomen is flat, Reports lower abdominal pain, upper abdominal pain, nausea, vomiting. : No signs and/or symptoms were reported regarding the genitourinary system. EENT: No signs and/or symptoms were reported regarding the EENT system. Derm: Skin is intact, Skin temperature is warm. Musculoskeletal: Capillary refill < 3 seconds, Range of motion: intact in all extremities. 01:20 Reassessment: Patient appears in no apparent distress at this time. hard stick patient rr5 tried by architect marine and ED provider. missed attempt. 01:30 Reassessment: Patient appears in no apparent distress at this time. No changes from rr5 previously documented assessment. sent for CT scan. 02:15 Reassessment: unable to insert IV access. ED provider extracted blood via femoral site. rr5 03:00 Reassessment: Patient appears in no apparent distress at this time. Patient and/or rr5 family updated on plan of care and expected duration. Pain level reassessed. asleep on bed comfortably Patient states feeling better. Patient states symptoms have improved. 04:10 Reassessment: Patient appears in no apparent distress at this time. Patient and/or rr5 family updated on plan of care and expected duration. Pain level reassessed. discharge instruction given and explained without complaints made. Patient states feeling better. Patient states symptoms have improved. Vital Signs: 00:12 BP 183 / 97; Pulse 71; Resp 20; Temp 97.7; Pulse Ox 100% ; Weight 74.84 kg; Height 6 rr5 ft. 1 in. (185.42 cm); Pain 8/10; 01:00 BP 155 / 75; Pulse 70; Resp 19; Pulse Ox 98% ; rr5 02:00 BP 151 / 88; Pulse 65; Resp 19; Pulse Ox 99% ; rr5 03:00 BP 142 / 75; Pulse 76; Resp 20; Pulse Ox 99% ; rr5 04:00 BP 146 / 71; Pulse 71; Resp 17; Pulse Ox 99% ; rr5 00:12 Body Mass Index 21.77 (74.84 kg, 185.42 cm) rr5 ED Course: 00:05 Arm band placed on right wrist. rr5 00:09 Patient arrived in ED. ds1 00:09 Byron Rai, RN is Primary Nurse. rr5 00:10 Patient has correct armband on for positive identification. Placed in gown. Bed in low rr5 position. Call light in reach. Side rails up X2. Pulse ox on. NIBP on. 00:12 Triage completed. rr5 00:15 Darvin Logan MD is Attending Physician. wa 00:50 Missed attempt(s): 20 gauge Bleeding controlled, band aid applied, catheter tip intact. rr5 01:20 Missed attempt(s): 20 gauge 22 gauge in left in right forearm. antecubital area. ED rr5 tech and architect marine. Bleeding controlled, band aid applied, catheter tip intact. 01:30 Missed attempt(s): 20 gauge in right in left IJ by ED provider. Bleeding controlled, rr5 band aid applied, catheter tip intact. 01:47 CT Abd/Pelvis - Without Cont In Process Unspecified. EDMS 01:[address] from [address]. kw1 03:52 Darvin Rocha MD is Referral Physician. wa 04:24 No provider procedures requiring assistance completed. Patient did not have IV access rr5 during this emergency room visit. Administered Medications: 02:30 Drug: Zofran 4 mg Route: IM; Site: left gluteus; rr5 04:20 Follow up: Response: No adverse reaction rr5 02:32 Drug: fentaNYL (PF) 25 mcg Route: IM; Site: right gluteus; rr5 04:20 Follow up: Response: No adverse reaction rr5 02:38 Not Given (Other Intervention Used): fentaNYL (PF) 50 mcg IVP once rr5 02:38 Not Given (Other Intervention Used): Zofran 4 mg IVP once; over 2 minutes rr5 Outcome: 03:53 Discharge ordered by . wa 04:25 Discharged to home ambulatory. rr5 04:25 Condition: stable 04:25 Discharge instructions given to patient, Instructed on discharge instructions, follow up and referral plans. medication usage, Demonstrated understanding of instructions, follow-up care, medications, Prescriptions given X 2. 04:26 Patient left the ED. rr5 Signatures: Dispatcher [employer] EDAL Faviola Landrum ds1 Darvin Logan MD MD wa Wilhelm, Kimberly kw1 Byron Rai, RN RN rr5
[2018-03-20 04:19] LABS: Urine Blood 1+ (NEG); Urine Glucose TRACE (NEG); Urine Protein NEGATIVE (NEG); Urine Specific Gravity >1.030 (1.005-1.030)
[2018-03-20 04:36] VITALS: TEMP 97.7
[2018-03-20 04:39] VITALS: O2SAT 99
[2018-03-20 04:41] VITALS: BP 146/71
--- NOTE | 2018-03-20 10:13 | RAD REPORT ---
EXAM DESCRIPTION: CT - Abdomen Pelvis Wo Contrast - 03/20/2018 4:53 am CLINICAL HISTORY: Abdominal pain. ABD PAIN COMPARISON: [facility] Protocol dated 01/25/2018 TECHNIQUE: CT imaging of the abdomen and pelvis was performed without contrast. Solid organ, bowel a nd vascular assessment is limited due to lack of IV and oral contrast. All CT scans are performed using dose optimization technique as appropriate and may include automated exposure control or mA/KV adjustment according to patient size. FINDINGS: Calcified pleural thickening in the right lung base is unchanged with adjacent areas of at electasis.Cholecystectomy clips. The liver, spleen, pancreas, adrenal glands and kidneys are within normal limits for a limited non-co ntrast examination.Bilateral renal cysts are present, largest on the left measuring 3.4 cm. More dens e cortical lesion is present in the left kidney measuring 3.5 cm, difficult to fully assess without I V contrast but stable in size since most recent comparative studies. Aortic atherosclerosis is noted. No bowel obstruction, free air, free fluid or abscess. The appendix is normal. Moderate mid lumbar degenerative changes. IMPRESSION: No acute intra-abdominal or pelvic findings. Consider additional imaging of the left kidney with either renal sonography or MR kidneys. A limited non-contrast examination was performed as detailed.
--- NOTE | 2018-03-20 13:31 | EKG ---
Test Date: 2018-03-20 Test Time: 02:23:55 Legal Support Analyst: DAHIANA MEASUREMENT RESULTS: Intervals: Rate: 67 DC: 176 QRSD: 84 QT: 378 QTc: 399 [place]: P: 47 DC: 176 QRS: 76 T: 74 INTERPRETIVE STATEMENTS: Sinus rhythm with premature atrial complexes with aberrant conduction Otherwise normal ECG Compared to ECG 03/13/2018 21:02:07 Atrial premature complex(es) now present Aberrant conduction of supraventricular beat(s) now present Electronically Signed On 03-20-18 13:21:36 SR. PAYROLL MANAGER by Rocco Menjivar
== END 2018-03-20 04:26 | disposition home or self-care (01) ==
LOC: ER
DX: R10.9 Unspecified abdominal pain (principal); F17.210 Nicotine dependence, cigarettes, uncomplicated; Z21 Asymptomatic human immunodeficiency virus [HIV] infection status; Z85.038 Personal history of other malignant neoplasm of large intestine
CPT/HCPCS: 36415; 74176; 80048; 80076; 80307 ×8; 83605; 83690; 85025; 93005; 96372; 99284; J2405; J3010; 81003; 81015

== ENCOUNTER 2018-04-16 11:19 | Emergency (ER) | payer OTHER ==
[2018-04-16 12:13] LABS: Absolute Lymphocytes (CBC) 1.2 K/uL (0.7-4.9); Absolute Monocytes 0.5 K/uL (0.1-1.3); Basophils % 0.8 % (0-1.3); Eosinophils % 0.9 % (0-4.4); Hematocrit 47.3 % (39.6-49.0); Lymphocytes % 20.4 % (15.3-44.8); MPV 7.9 fL (7.6-11.3); Monocytes % 8.9 % (3.3-12.3); RBC Red Blood Cell Count 5.92 M/uL (4.33-5.43)
[2018-04-16 12:18] LABS: Protime INR 0.92
[2018-04-16] MEDS ORDERED: ONDANSETRON 4 MG/2 ML VIAL ONE (12:19)
[2018-04-16] MEDS ORDERED: PANTOPRAZOLE 40 MG INJ ONE (12:20)
[2018-04-16 12:32] LABS: ALT/SGPT 28 U/L (12-78); AST/SGOT 26 U/L (15-37); Albumin 3.3 g/dL (3.4-5.0); Alkaline Phosphatase 107 U/L (45-117); BUN Blood Urea Nitrogen 22 mg/dL (7-18); Bicarbonate 33 mmol/L (21-32); Bilirubin Direct 0.2 mg/dL (0-0.2); Bilirubin Total 0.6 mg/dL (0.2-1.0); Glucose Level 110 mg/dL (74-106); Lipase 177 U/L (73-393); Magnesium 2.3 mg/dL (1.8-2.4); Potassium 4.2 mmol/L (3.5-5.1); Protein, Total 7.5 g/dL (6.4-8.2); Sodium Level 141 mmol/L (136-145); Troponin (Emerg Dept Use Only) < 0.02 ng/mL (0.0-0.045)
--- NOTE | 2018-04-16 12:42 | RAD REPORT ---
EXAM DESCRIPTION: RAD - Chest Single View - 04/16/2018 12:29 pm CLINICAL HISTORY: Abdominal pain, vomiting COMPARISON: March 13, 2018 TECHNIQUE: AP portable chest image was obtained 1227 hours . FINDINGS: Scattered fibrotic lung changes are present. Calcified pleural density lower right lung fi eld has not changed. There is scarring in the adjacent parenchyma. Heart and vasculature are normal. No acute pleural effusion and no pneumothorax. No acute bony abnormality seen. No acute aortic findin g. Mediastinum is distorted by rotation. IMPRESSION: No acute cardiopulmonary process. No significant change from comparison.
--- NOTE | 2018-04-16 14:08 | RAD REPORT ---
EXAM DESCRIPTION: CT - Abdomen Pelvis W Contrast - 04/16/2018 1:04 pm CLINICAL HISTORY: Abdominal pain COMPARISON: Noncontrast CT study March 20 CT 2017 TECHNIQUE: Biphasic, helical CT imaging of the abdomen and pelvis was performed following 100 ml non -ionic IV contrast. No oral contrast administered. All CT scans are performed using dose optimization technique as appropriate and may include automated exposure control or mA/KV adjustment according to patient size. FINDINGS: No acute lung base finding. Chronic loculated collection in the lateral and posterior righ t pleural space again notes dense calcification along the pleura. This is a chronic presentation. No pericardial thickening or effusion. The liver, spleen, and pancreas show no suspicious findings. Cholecystectomy clips are present. No bi liary tree abnormal dilatation for a post cholecystectomy patient. Renal function is symmetric and prompt. No hydronephrosis or obstructing calculus. Small cysts are id entified in the right kidney. A 3.2 centimeter round masses present exophytic upper pole left kidney. This is homogeneous but shows 32 Hounsfield unit attenuation value. In the lateral upper left kidney there is a 3.5 centimeter mass that shows simple cyst characteristics. A 3.2 cm simple cyst is prese nt lower pole left kidney. In the lateral mid left kidney there is a low-density mass. Attenuation is heterogeneous with a 40 Hounsfield unit attenuation value. Size is 3.4 cm. March study was not lobito quate for comparison though the higher density masses are isodense to parenchyma on the precontrast o r noncontrast study of March 20. No pyelonephritis or acute parenchymal process. No bladder abnormal ity suspected. Pelvic floor assessment is limited by right hip prosthesis. No adrenal abnormalities. No gastric abnormality. Multiple dilated small bowel loops are present in the mid jejunum to mid ileu m level. Distal small bowel appears decompressed. A specific point of transition is not clearly defin ed. A small bowel or mesenteric mass is not seen. No free air, free fluid or inflammatory stranding. No bulky lymphadenopathy, ascites or omental thickening. Disc and bony degenerative changes are present along with right hip joint prosthesis. Lucent changes are present in the posterior column acetabulum extending into the posterior right ischium. Medial cor tical wall is very thin and may be disrupted. This may be particle disease related to the prosthesis. Findings are not clearly different back to June 2016. IMPRESSION: Multiple dilated small bowel loops without a specific transition point or obstructing ma ss. An ileus is possible. Early mechanical small bowel obstruction from an adhesion or internal herni a possible as well. No free air, abscess or surgically emergent finding. Left kidney demonstrates 2 low-density masses that do not meet simple cyst criteria. Solid masses or complex cysts are possible. Follow-up outpatient sonography can be utilized for re-evaluation. These are not emergent findings.
--- NOTE | 2018-04-16 15:08 | ER ---
Nurse's Notes [facility] Name: Deacon Howe Jr Age: 82 yrs Sex: Male : 1935 Arrival Date: 04/16/2018 Time: 11:21 Bed 18 Private MD: Diagnosis: Nausea and vomiting Presentation: 04/16 11:22 Presenting complaint: EMS states: REFLUX SINCE 0200. Transition of care: patient was bp not received from another setting of care. Onset of symptoms was April 16, 2018 at 02:00. Risk Assessment: Do you want to hurt yourself or someone else? Patient reports no desire to harm self or others. Initial Sepsis Screen: Does the patient meet any 2 criteria? No. Patient's initial sepsis screen is negative. Does the patient have a suspected source of infection? No. Patient's initial sepsis screen is negative. Care prior to arrival: Glucose check: 98. 11:22 Method Of Arrival: EMS: [facility] bp 11:22 Acuity: ALIN 3 bp Triage Assessment: 11:24 General: Appears in no apparent distress. uncomfortable, slender, unkempt, Behavior is bp cooperative, appropriate for age, agitated. Pain: Complains of pain in abdomen. EENT: No deficits noted. Neuro: Level of Consciousness is awake, alert. Cardiovascular: No deficits noted. Respiratory: Airway is patent Respiratory effort is even, unlabored, Respiratory pattern is regular, symmetrical. GI: Reports indigestion. : No signs and/or symptoms were reported regarding the genitourinary system. Derm: No deficits noted. Musculoskeletal: No deficits noted. Historical: - Allergies: 11:24 NKDA; bp - Home Meds: 11:24 Unable to obtain [Active]; bp - PMHx: 11:24 colon cancer; Hepatitis; HIV; Hypertension; bp - Immunization history:: Adult Immunizations unknown. - Social history:: Smoking status: Patient uses tobacco products, unknown amount Patient uses street drugs. - Ebola Screening: : Patient negative for fever greater than or equal to 101.5 degrees Fahrenheit, and additional compatible Ebola Virus Disease symptoms Patient denies exposure to infectious person Patient denies travel to an Ebola-affected area in the 21 days before illness onset No symptoms or risks identified at this time. Screenin:28 Abuse screen: Denies threats or abuse. Denies injuries from another. Nutritional bp screening: No deficits noted. Tuberculosis screening: No symptoms or risk factors identified. Fall Risk None identified. Assessment: 11:28 General: SEE TRIAGE NOTE. bp 13:30 Reassessment: ALL CURRENT ORDERS COMPLETED, NO FURTHER VOMITING AT THIS TIME. bp 15:38 Reassessment: PT D/C HOME AMBULATORY, DX WITH NAUSEA AND VOMITING. bp Vital Signs: 11:27 BP 157 / 89; Pulse 70; Resp 20; Temp 98; Pulse Ox 98% ; Weight 68.04 kg; bp 12:21 BP 161 / 88; Pulse 71; Resp 20; Pulse Ox 96% ; bp 14:31 BP 153 / 75; Pulse 63; Resp 14; Pulse Ox 96% ; bp 15:30 BP 166 / 81; Pulse 63; Resp 18; Pulse Ox 97% ; bp ED Course: 11:21 Patient arrived in ED. bp 11:23 Triage completed. bp 11:25 Vipul Kuhn PA is PHCP. cp 11:25 Shalom Zapata MD is Attending Physician. cp 11:27 Arm band placed on. bp 11:28 Patient has correct armband on for positive identification. Placed in gown. Bed in low bp position. Call light in reach. Side rails up X2. 11:45 Braeden Farnsworth, MARYANNE is Primary Nurse. bp 12:02 Missed attempt(s): 20 gauge in right antecubital area. Bleeding controlled, band aid iw applied, catheter tip intact. 12:21 Inserted saline lock: 18 gauge in right upper arm, using aseptic technique. Blood bp collected. 12:29 XRAY Chest (1 view) In Process Unspecified. EDMS 13:04 CT Abd/Pelvis - W/Contrast: no oral contrast In Process Unspecified. EDMS 13:04 CT completed. Patient tolerated procedure well. Patient moved to CT via wheelchair. mw3 Patient moved back from CT. 15:07 No provider procedures requiring assistance completed. IV discontinued, intact, bp bleeding controlled, No redness/swelling at site. Pressure dressing applied. Administered Medications: 12:20 Drug: Zofran 4 mg Route: IVP; Site: right upper arm; bp 12:38 Follow up: Response: No adverse reaction bp 12:20 Drug: ProTONIX 40 mg Route: IVP; Site: right upper arm; bp 12:38 Follow up: Response: No adverse reaction bp 12:45 Drug: NS 0.9% 500 ml Route: IV; Rate: bolus; Site: right upper arm; bp 13:45 Follow up: IV Status: Completed infusion; IV Intake: 500ml bp Intake: 13:45 IV: 500ml; Total: 500ml. bp Outcome: 15:08 Discharge ordered by MD. cp 15:40 Discharged to home ambulatory, with friend. bp 15:40 Condition: stable 15:40 Discharge instructions given to patient, Instructed on discharge instructions, follow up and referral plans. medication usage, Demonstrated understanding of instructions, follow-up care, medications, Prescriptions given X 2. 15:40 Patient left the ED. bp Signatures: Dispatcher [employer] EDMS Sapphire Benitez RN RN Vipul Caldwell, PA PA Braeden Gonzalez RN RN Jenna Antunez mw3
--- NOTE | 2018-04-16 15:09 | EDPHYS ---
Physician Documentation [facility] Name: Deacon Howe Jr Age: 82 yrs Sex: Male : 1935 Arrival Date: 04/16/2018 Time: 11:21 Bed 18 Private MD: ED Physician Shalom Zapata HPI: 04/16 11:30 This 82 yrs old Black Male presents to ER via EMS with complaints of REFLUX. cp 11:30 The patient presents to the emergency department with nausea, that is moderate, cp vomiting, that is intermittent. Onset: The symptoms/episode began/occurred this morning. Possible causes: bad food exposure. 11:30 Associated signs and symptoms: Pertinent positives: abdominal pain, anorexia, Pertinent cp negatives: constipation, diarrhea, fever, GI bleeding. Severity of symptoms: in the emergency department the symptoms are unchanged despite home interventions. The patient has experienced similar episodes in the past, multiple times, but today's symptoms are worse. Historical: - Allergies: 11:24 NKDA; bp - Home Meds: 11:24 Unable to obtain [Active]; bp - PMHx: 11:24 colon cancer; Hepatitis; HIV; Hypertension; bp - Immunization history:: Adult Immunizations unknown. - Social history:: Smoking status: Patient uses tobacco products, unknown amount Patient uses street drugs. - Ebola Screening: : Patient negative for fever greater than or equal to 101.5 degrees Fahrenheit, and additional compatible Ebola Virus Disease symptoms Patient denies exposure to infectious person Patient denies travel to an Ebola-affected area in the 21 days before illness onset No symptoms or risks identified at this time. ROS: 11:35 Constitutional: Negative for body aches, fever, poor PO intake. cp 11:35 Eyes: Negative for injury, pain, redness, and discharge. cp 11:35 ENT: Negative for drainage from ear(s), ear pain, sore throat, difficulty swallowing, difficulty handling secretions. 11:35 Cardiovascular: Negative for chest pain, edema, palpitations. 11:35 Respiratory: Negative for cough, shortness of breath, wheezing. 11:35 Abdomen/GI: Positive for abdominal pain, nausea and vomiting, Negative for diarrhea, constipation, hematemesis, black/tarry stool, rectal bleeding. 11:35 Back: Negative for radiated pain. 11:35 : Negative for urinary symptoms. 11:35 Neuro: Negative for altered mental status, headache, syncope, weakness. 11:35 All other systems are negative. Exam: 11:35 Constitutional: The patient appears in no acute distress, alert, awake, cp non-diaphoretic, non-toxic, well developed, well nourished. 11:35 Head/Face: Normocephalic, atraumatic. cp 11:35 Eyes: Periorbital structures: appear normal, Pupils: equal, round, and reactive to light and accomodation, Extraocular movements: intact throughout, Conjunctiva: normal, no exudate, no injection, Sclera: no appreciated abnormality, Lids and lashes: appear normal, bilaterally. 11:35 ENT: External ear(s): are unremarkable, Nose: is normal, Mouth: Lips: moist, Oral mucosa: moist, Posterior pharynx: is normal, airway is patent, no erythema, no exudate. 11:35 Neck: ROM/movement: is normal, is supple, without pain, no range of motions limitations, no meningismus, no nuchal rigidity. 11:35 Chest/axilla: Inspection: normal, Palpation: is normal, no crepitus, no tenderness. 11:35 Cardiovascular: Rate: normal, Rhythm: regular, Edema: is not appreciated, JVD: is not appreciated. 11:35 Respiratory: the patient does not display signs of respiratory distress, Respirations: normal, no use of accessory muscles, no retractions, no splinting, no tachypnea, labored breathing, is not present, Breath sounds: are clear throughout, no decreased breath sounds, no stridor, no wheezing. 11:35 Abdomen/GI: Inspection: scar(s), Bowel sounds: active, all quadrants, Palpation: soft, in all quadrants, mild abdominal tenderness, in the right upper quadrant and left upper quadrant, rebound tenderness, is not appreciated, voluntary guarding, is not appreciated, involuntary guarding, is not appreciated. 11:35 Skin: cellulitis, is not appreciated, no rash present. 11:35 Neuro: Orientation: to person, place \T\ time. Mentation: is normal, Cerebellar function: is grossly normal, Motor: moves all fours, strength is normal, Sensation: is normal. 15:34 ECG was reviewed by the Attending Physician. cp Vital Signs: 11:27 BP 157 / 89; Pulse 70; Resp 20; Temp 98; Pulse Ox 98% ; Weight 68.04 kg; bp 12:21 BP 161 / 88; Pulse 71; Resp 20; Pulse Ox 96% ; bp 14:31 BP 153 / 75; Pulse 63; Resp 14; Pulse Ox 96% ; bp 15:30 BP 166 / 81; Pulse 63; Resp 18; Pulse Ox 97% ; bp MDM: 11:25 Patient medically screened. cp 12:00 Differential diagnosis: gastritis, cholecystitis, pancreatitis, diverticulitis, viral cp gastroenteritis, gastroenteritis. 15:05 Data reviewed: vital signs, nurses notes, lab test result(s), EKG, radiologic studies, cp CT scan, plain films. 15:05 Test interpretation: by ED physician or midlevel provider: ECG, plain radiologic cp studies. Counseling: I had a detailed discussion with the patient and/or guardian regarding: the historical points, exam findings, and any diagnostic results supporting the discharge/admit diagnosis, the presence of at least one elevated blood pressure reading (>120/80) during this emergency department visit, lab results, radiology results, the need for outpatient follow up, a family practitioner, to return to the emergency department if symptoms worsen or persist or if there are any questions or concerns that arise at home. Response to treatment: the patient's symptoms have markedly improved after treatment, VSS. Nausea and pain markedly improved. Vomiting resolved. Patient observed tolerating po fluids. Will discharge to home for continued monitoring. 04/16 11:30 Order name: Basic Metabolic Panel; Complete Time: 12:33 cp 04/16 12:34 Interpretation: Normal except: CO2 33; GLUC 110; BUN 22; CRE 1.34; GFR 62. cp 04/16 11:30 Order name: CBC with Diff; Complete Time: 12:33 cp 04/16 12:37 Interpretation: Normal except: RBC 5.92; MCV 79.9; MCH 25.5; MCHC 31.9; RDW 17.0. cp 04/16 11:30 Order name: LFT's; Complete Time: 12:33 cp 04/16 12:38 Interpretation: Normal except: ALB 3.3; GLOB 4.2; A/G 0.8. cp 04/16 11:30 Order name: Magnesium; Complete Time: 12:33 cp 04/16 11:30 Order name: PT-INR; Complete Time: 12:33 cp 04/16 11:30 Order name: Troponin (emerg Dept Use Only); Complete Time: 12:33 cp 04/16 11:30 Order name: XRAY Chest (1 view); Complete Time: 14:43 cp 04/16 14:43 Interpretation: Report review. cp 04/16 11:30 Order name: EKG; Complete Time: 11:32 cp 04/16 11:30 Order name: Cardiac monitoring; Complete Time: 12:20 cp 04/16 11:30 Order name: Lipase; Complete Time: 12:33 cp 04/16 12:35 Order name: CT Abd/Pelvis - W/Contrast: no oral contrast; Complete Time: 14:43 cp 04/16 11:30 Order name: EKG - Nurse/Tech; Complete Time: 12:20 cp 04/16 11:30 Order name: IV Saline Lock; Complete Time: 12:20 cp 04/16 11:30 Order name: Labs collected and sent; Complete Time: 12:20 cp 04/16 11:30 Order name: O2 Per Protocol; Complete Time: 12:20 cp 04/16 11:30 Order name: O2 Sat Monitoring; Complete Time: 12:20 cp 04/16 14:50 Order name: PO challenge: juice and water; Complete Time: 14:56 cp EC:34 Rate is 68 beats/min. Rhythm is regular. LA interval is normal. QRS interval is normal. cp QT interval is normal. T waves are Inverted in lead aVL. Interpreted by me. Reviewed by me. Administered Medications: 12:20 Drug: Zofran 4 mg Route: IVP; Site: right upper arm; bp 12:38 Follow up: Response: No adverse reaction bp 12:20 Drug: ProTONIX 40 mg Route: IVP; Site: right upper arm; bp 12:38 Follow up: Response: No adverse reaction bp 12:45 Drug: NS 0.9% 500 ml Route: IV; Rate: bolus; Site: right upper arm; bp 13:45 Follow up: IV Status: Completed infusion; IV Intake: 500ml bp Disposition: 18:52 Co-signature as Attending Physician, Shalom Zapata MD Available for consultation at ps1 all times . Disposition: 04/16/18 15:08 Discharged to Home. Impression: Nausea and vomiting. - Condition is Stable. - Discharge Instructions: Dehydration, Adult, Nausea and Vomiting, Adult. - Prescriptions for Protonix 40 mg Oral Tablet, Delayed Release (E.C.) - take 1 tablet by ORAL route once daily; 20 tablet. Zofran 4 mg Oral Tablet - take 1 tablet by ORAL route every 12 hours As needed; 20 tablet. - Medication Reconciliation Form, Thank You Letter, Antibiotic Education, Prescription Opioid Use form. - Follow up: Private Physician; When: 1 - 2 days; Reason: Recheck today's complaints. - Problem is new. - Symptoms have improved. Signatures: Dispatcher [employer] EDMS Vipul Kuhn PA PA cp Braeden Farnsworth, MARYANNE RN bp Shalom Zapata MD MD ps1 Corrections: (The following items were deleted from the chart) 15:40 15:08 04/16/2018 15:08 Discharged to Home. Impression: Nausea and vomiting. Condition bp is Stable. Forms are Medication Reconciliation Form, Thank You Letter, Antibiotic Education, Prescription Opioid Use. Follow up: Private Physician; When: 1 - 2 days; Reason: Recheck today's complaints. Problem is new. Symptoms have improved. cp
[2018-04-16 15:47] VITALS: TEMP 98
[2018-04-16 15:51] VITALS: BP 166/81; O2SAT 97
--- NOTE | 2018-04-17 06:19 | EKG ---
Test Date: 2018-04-16 Test Time: 15:28:26 Shipping And Receiving Weigher: MEASUREMENT RESULTS: Intervals: Rate: 68 WA: 182 QRSD: 80 QT: 380 QTc: 404 Purcell: P: 64 WA: 182 QRS: 74 T: 77 INTERPRETIVE STATEMENTS: Sinus rhythm with premature atrial complexes Otherwise normal ECG Compared to ECG 03/20/2018 02:23:55 Aberrant conduction of supraventricular beat(s) no longer present Electronically Signed On 04-17-18 06:15:22 PROFESSOR OF FRENCH by Maurice Martin
== END 2018-04-16 15:40 | disposition home or self-care (01) ==
LOC: ER 11:19
DX: R11.2 Nausea with vomiting, unspecified (principal); I10 Essential (primary) hypertension; Z21 Asymptomatic human immunodeficiency virus [HIV] infection status; Z72.0 Tobacco use; Z85.038 Personal history of other malignant neoplasm of large intestine
CPT/HCPCS: 36415; 71045; 74177; 80048; 80076; 83690; 83735; 84484; 85025; 85610; 93005; 96361; 96374; 96375; 99284; C9113; J2405; Q9967

== ENCOUNTER 2018-05-23 13:16 | Emergency (ER) | payer OTHER ==
--- NOTE | 2018-05-23 15:15 | EKG ---
Test Date: 2018-05-23 Test Time: 14:02:23 Devops Consultant: MARY MEASUREMENT RESULTS: Intervals: Rate: 73 CT: 178 QRSD: 82 QT: 388 QTc: 427 [place]: P: 61 CT: 178 QRS: 82 T: 86 INTERPRETIVE STATEMENTS: Normal sinus rhythm Nonspecific ST abnormality Abnormal ECG Compared to ECG 04/16/2018 15:28:26 ST (T wave) deviation now present Atrial premature complex(es) no longer present Electronically Signed On 05-23-18 15:14:21 CDT by Maurice Martin
[2018-05-23] MEDS ORDERED: HYDROCODONE/APAP 10/325 TAB ONE (15:39)
[2018-05-23 15:58] LABS: Absolute Lymphocytes (CBC) 1.6 K/uL (0.7-4.9); Absolute Monocytes 0.8 K/uL (0.1-1.3); Absolute Neutrophil 3.4 K/uL (1.8-8.0); Basophils % 1.5 % (0-1.3); Eosinophils % 3.1 % (0-4.4); MPV 8.5 fL (7.6-11.3); Monocytes % 12.4 % (3.3-12.3); RBC Red Blood Cell Count 5.72 M/uL (4.33-5.43)
--- NOTE | 2018-05-23 16:12 | RAD REPORT ---
EXAM DESCRIPTION: RAD - Chest Single View - 05/23/2018 4:01 pm CLINICAL HISTORY: Chest pain COMPARISON: April 16, 2018, March 13, 2018 TECHNIQUE: AP portable chest image was obtained 1556 hour . FINDINGS: No new mass or consolidation in either lung field. Interstitial markings are accentuated b y low lung volumes. Calcified pleural based mass lateral right lung base is stable from prior imaging . This is a chronic finding. Focal scarring in the lateral left upper lung field has not changed. Hea rt and vasculature are normal. No measurable pleural effusion and no pneumothorax. No acute bony abno rmality seen. No acute aortic findings suspected. IMPRESSION: Chronic pleural and parenchymal changes are present as detailed. No acute finding identifiable.
[2018-05-23 16:34] LABS: BUN Blood Urea Nitrogen 28 mg/dL (7-18); Bicarbonate 25 mmol/L (21-32); Glucose Level 100 mg/dL (74-106); Lipase 112 U/L (73-393); Potassium 4.6 mmol/L (3.5-5.1); Sodium Level 137 mmol/L (136-145); Troponin (Emerg Dept Use Only) < 0.02 ng/mL (0.0-0.045)
--- NOTE | 2018-05-23 16:45 | EDPHYS ---
Physician Documentation [facility] Name: Deacon Howe Jr Age: 82 yrs Sex: Male : 1935 Arrival Date: 05/23/2018 Time: 13:19 Bed 20 Private MD: None, None ED Physician Sp Herron HPI: 05/23 15:09 This 82 yrs old Black Male presents to ER via Ambulatory with complaints of Chest Pain. rn 15:09 The patient or guardian reports chest pain that is located primarily in the anterior rn chest wall, left. Onset: 1 week(s) ago. The pain does not radiate. The chest pain is described as aching. Modifying factors: The symptoms are alleviated by nothing. the symptoms are aggravated by nothing. Severity of pain: At its worst the pain was mild in the emergency department the pain is unchanged. The patient has experienced similar episodes in the past. The patient has not recently seen a physician. Reports intermittent left sided chest pain for 1 week, also reports joint aches of his shoulders/knees/back, + mild abd pain, no fever/vomiting/diarrhea. . Historical: - Allergies: 13:23 NKDA; ss - PMHx: 13:23 colon cancer; Hepatitis; HIV; Hypertension; ss - Immunization history:: Adult Immunizations unknown. - Ebola Screening: : Patient denies exposure to infectious person Patient denies travel to an Ebola-affected area in the 21 days before illness onset. - Family history:: not pertinent. - Hospitalizations: : No recent hospitalization is reported. ROS: 15:09 Constitutional: Negative for fever, chills, and weight loss, Eyes: Negative for injury, rn pain, redness, and discharge, Neck: Negative for injury, pain, and swelling, Cardiovascular: Negative for palpitations, and edema, Respiratory: Negative for shortness of breath, cough, wheezing, and pleuritic chest pain, Abdomen/GI: Negative for nausea, vomiting, diarrhea, and constipation, Back: Negative for injury and pain, MS/Extremity: Negative for injury and deformity, Skin: Negative for injury, rash, and discoloration, Neuro: Negative for headache, weakness, numbness, tingling, and seizure. Exam: 15:09 Constitutional: Thin male, no acute distress Head/Face: Normocephalic, atraumatic. rn Eyes: Pupils equal round and reactive to light, extra-ocular motions intact. ENT: MMM Chest/axilla: Normal chest wall appearance and motion. Nontender with no deformity. No lesions are appreciated. Cardiovascular: Regular rate and rhythm, No pulse deficits. Respiratory: Lungs have equal breath sounds bilaterally, clear to auscultation, No increased work of breathing, no retractions or nasal flaring. Abdomen/GI: soft, non-tender MS/ Extremity: Pulses equal, no cyanosis. Neurovascular intact. Full, normal range of motion. Equal circumference. Neuro: Awake and alert, GCS 15, oriented to person, place, time, and situation. Cranial nerves II-XII grossly intact. Motor strength 5/5 in all extremities. Sensory grossly intact. Cerebellar exam normal. Vital Signs: 13:23 BP 127 / 68; Pulse 81; Resp 18; Temp 98.3(O); Pulse Ox 97% on R/A; ss 17:00 BP 125 / 75; Pulse 75; Resp 16; Pulse Ox 97% ; bp MDM: 14:57 Patient medically screened. rn 16:43 Differential diagnosis: acute pericarditis, anxiety, coronary artery disease rn gastroesophageal reflux disease (GERD), pleurisy, pneumothorax. Data reviewed: vital signs, nurses notes, lab test result(s), EKG, radiologic studies, plain films, and as a result, I will discharge patient. Counseling: I had a detailed discussion with the patient and/or guardian regarding: the historical points, exam findings, and any diagnostic results supporting the discharge/admit diagnosis, lab results, radiology results, the need for outpatient follow up, to return to the emergency department if symptoms worsen or persist or if there are any questions or concerns that arise at home. Medical screen evaluation completed. EMTALA emergency medical condition absent. Special discussion: Based on the patient's history, exam, and Dx evaluation, there is no indication for emergent intervention or inpatient Tx. It is understood by the patient/guardian that if the Sx's persist or worsen they need to return immediately for re-evaluation. I discussed with the patient/guardian in detail that at this point there is no indication for admission to the hospital. It is understood, however, that if the symptoms persist or worsen the patient needs to return immediately for re-evaluation. 05/23 15:08 Order name: CBC with Diff rn 05/23 15:08 Order name: Basic Metabolic Panel; Complete Time: 16:41 rn 05/23 15:08 Order name: Lipase; Complete Time: 16:41 rn 05/23 15:08 Order name: Troponin (emerg Dept Use Only); Complete Time: 16:41 rn 05/23 15:21 Order name: XRAY Chest (1 view); Complete Time: 16:41 rn 05/23 13:23 Order name: EKG; Complete Time: 13:24 ss 05/23 13:23 Order name: EKG - Nurse/Tech; Complete Time: 15:09 ss Administered Medications: 15:15 Drug: [place] 10 mg-325 mg 1 tabs Route: PO; bp 15:49 Follow up: Response: Pain is decreased bp 17:03 Not Given (Physician Discretion): NS 0.9% 500 ml IV at bolus once bp Disposition: 05/23/18 16:44 Discharged to Home. Impression: Dehydration, Chest pain, unspecified, Arthritis. - Condition is Stable. - Discharge Instructions: Arthritis, Nonspecific Chest Pain, Dehydration, Adult. - Medication Reconciliation Form, Thank You Letter, Antibiotic Education, Prescription Opioid Use form. - Follow up: Private Physician; When: As needed; Reason: Recheck today's complaints, Re-evaluation by your physician. - Problem is new. - Symptoms have improved. Signatures: Dispatcher [employer] EDMS Sp Herron MD MD rn Smirch, Shelby, RN RN ss Peltier, Brian, RN RN bp Corrections: (The following items were deleted from the chart) 17:30 16:44 05/23/2018 16:44 Discharged to Home. Impression: Dehydration; Chest pain, bp unspecified; Arthritis. Condition is Stable. Forms are Medication Reconciliation Form, Thank You Letter, Antibiotic Education, Prescription Opioid Use. Follow up: Private Physician; When: As needed; Reason: Recheck today's complaints, Re-evaluation by your physician. Problem is new. Symptoms have improved. rn
--- NOTE | 2018-05-23 16:45 | ER ---
Nurse's Notes [facility] Name: Deacon Howe Jr Age: 82 yrs Sex: Male : 1935 Arrival Date: 05/23/2018 Time: 13:19 Bed 20 Private MD: None, None Diagnosis: Dehydration;Chest pain, unspecified;Arthritis Presentation: 05/23 13:21 Presenting complaint: EMS states: intermittent CP x 1 week. Transition of care: patient ss was not received from another setting of care. Onset of symptoms was May 16, 2018. Risk Assessment: Do you want to hurt yourself or someone else? Patient reports no desire to harm self or others. Initial Sepsis Screen: Does the patient meet any 2 criteria? No. Patient's initial sepsis screen is negative. Does the patient have a suspected source of infection? No. Patient's initial sepsis screen is negative. 13:21 Method Of Arrival: Ambulatory ss 13:21 Acuity: ALIN 3 ss 13:23 Care prior to arrival: Glucose check: 104. ss Historical: - Allergies: 13:23 NKDA; ss - PMHx: 13:23 colon cancer; Hepatitis; HIV; Hypertension; ss - Immunization history:: Adult Immunizations unknown. - Ebola Screening: : Patient denies exposure to infectious person Patient denies travel to an Ebola-affected area in the 21 days before illness onset. - Family history:: not pertinent. - Hospitalizations: : No recent hospitalization is reported. Screenin:00 Abuse screen: Denies threats or abuse. Denies injuries from another. Nutritional bp screening: No deficits noted. Tuberculosis screening: No symptoms or risk factors identified. Fall Risk None identified. Assessment: 15:00 General: Appears in no apparent distress. comfortable, Behavior is calm, cooperative, bp appropriate for age. Pain: Complains of pain in chest Pain does not radiate. Pain began years ago. Neuro: No deficits noted. Cardiovascular: Rhythm is sinus arrythmia. Respiratory: Airway is patent Respiratory effort is even, unlabored, Respiratory pattern is regular, symmetrical. GI: No signs and/or symptoms were reported involving the gastrointestinal system. : No signs and/or symptoms were reported regarding the genitourinary system. EENT: No deficits noted. Derm: No deficits noted. Musculoskeletal: Circulation, motion, and sensation intact. Range of motion: intact in all extremities. 17:26 Reassessment: PT D/C HOME AMBULATORY, DX WITH UNSPECIFIC CHEST PAIN. bp Vital Signs: 13:23 BP 127 / 68; Pulse 81; Resp 18; Temp 98.3(O); Pulse Ox 97% on R/A; ss 17:00 BP 125 / 75; Pulse 75; Resp 16; Pulse Ox 97% ; bp ED Course: 13:19 Patient arrived in ED. dl4 13:20 None, None is Private Physician. dl4 13:22 Triage completed. ss 13:23 Arm band placed on right wrist. ss 14:55 EKG done, by rf technician. dt2 14:57 Sp Herron MD is Attending Physician. rn 14:59 Braeden Farnsworth, MARYANNE is Primary Nurse. bp 15:00 Patient has correct armband on for positive identification. Bed in low position. Call bp light in reach. Side rails up X2. Pulse ox on. NIBP on. 16:02 XRAY Chest (1 view) In Process Unspecified. EDMS 17:29 No provider procedures requiring assistance completed. Patient maintains SpO2 bp saturation greater than 95% on room air. 17:30 Patient did not have IV access during this emergency room visit. bp Administered Medications: 15:15 Drug: [place] 10 mg-325 mg 1 tabs Route: PO; bp 15:49 Follow up: Response: Pain is decreased bp 17:03 Not Given (Physician Discretion): NS 0.9% 500 ml IV at bolus once bp Outcome: 16:44 Discharge ordered by . rn 17:29 Discharged to home ambulatory. bp 17:29 Condition: stable 17:29 Discharge instructions given to patient, Instructed on discharge instructions, follow up and referral plans. Demonstrated understanding of instructions, follow-up care. 17:30 Patient left the ED. bp Signatures: Dispatcher [employer] EDMS Sp Herron MD MD rn Smirch, Shelby, RN RN Braeden Farnsworth, MARYANNE RN [facility] dt2 [place] Willoughby dl4 Corrections: (The following items were deleted from the chart) 13:24 13:21 Care prior to arrival: None. ss ss
[2018-05-23 17:35] VITALS: BP 127/68; TEMP 98.3; O2SAT 97
[2018-05-23 21:19] LABS: Anisocytosis 2+; Blood Morphology Comment NOTED (NOT SEEN); Platelet Estimate ADEQ; Urine White Blood Cell Casts OK
[2018-05-23 21:20] LABS: Poikilocytosis 1+; Polychromasia 1+; Teardrop Cell FEW
== END 2018-05-23 17:30 | disposition home or self-care (01) ==
LOC: ER 13:16
DX: R07.9 Chest pain, unspecified (principal); E86.0 Dehydration; M19.91 Primary osteoarthritis, unspecified site; C18.9 Malignant neoplasm of colon, unspecified; I10 Essential (primary) hypertension; K75.9 Inflammatory liver disease, unspecified; B20 Human immunodeficiency virus [HIV] disease
CPT/HCPCS: 36415; 71045; 80048; 83690; 84484; 85025; 93005; 99285

== ENCOUNTER 2018-05-27 15:01 | Emergency (ER) | payer OTHER ==
[2018-05-27 16:29] LABS: Protime INR 1.01
[2018-05-27 16:30] LABS: Absolute Lymphocytes (CBC) 1.1 K/uL (0.7-4.9); Absolute Monocytes 0.4 K/uL (0.1-1.3); Absolute Neutrophil 3.2 K/uL (1.8-8.0); Basophils % 0.7 % (0-1.3); Eosinophils % 1.1 % (0-4.4); Hematocrit 52.9 % (39.6-49.0); Lymphocytes % 22.3 % (15.3-44.8); MPV 7.6 fL (7.6-11.3); Monocytes % 8.7 % (3.3-12.3); RBC Red Blood Cell Count 6.68 M/uL (4.33-5.43)
[2018-05-27] MEDS ORDERED: NA CHLORIDE 0.9% 1,000 ML ONE (16:33)
[2018-05-27] MEDS ORDERED: FAMOTIDINE 20 MG/2 ML VIAL IV ONE (16:33)
[2018-05-27] MEDS ORDERED: NA CHLORIDE 0.9% 500 ML ONE (16:33)
--- NOTE | 2018-05-27 16:45 | RAD REPORT ---
[facility] CLINICAL HISTORY: Cough COMPARISON: May 23, 2018 FINDINGS: Calcified right pleural plaques and parenchymal lung scarring unchanged. Lungs appear clear of acute infiltrate. Heart is normal size. IMPRESSION: No acute abnormalities displayed
--- NOTE | 2018-05-27 16:50 | RAD REPORT ---
EXAM DESCRIPTION: RAD - Abdomen W Erect - 05/27/2018 4:37 pm CLINICAL HISTORY: Abdominal pain FINDINGS: The bowel gas pattern is unremarkable. Calcifications in pelvis probably represent phlebo liths. 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 Chronic lucency within right acetabulum unchanged prior exams
[2018-05-27] MEDS ORDERED: MORPHINE 4 MG/ML SYR ONE (17:26)
[2018-05-27] MEDS ORDERED: ONDANSETRON 4 MG/2 ML VIAL ONE (17:26)
[2018-05-27 17:36] LABS: ALT/SGPT 37 U/L (12-78); AST/SGOT 30 U/L (15-37); Albumin 3.7 g/dL (3.4-5.0); Alkaline Phosphatase 86 U/L (45-117); BUN Blood Urea Nitrogen 19 mg/dL (7-18); Bicarbonate 26 mmol/L (21-32); Bilirubin Direct 0.2 mg/dL (0-0.2); Bilirubin Total 0.8 mg/dL (0.2-1.0); Glucose Level 88 mg/dL (74-106); Lipase 90 U/L (73-393); NT PRO-BNP 129 pg/mL (<450); Potassium 4.8 mmol/L (3.5-5.1); Sodium Level 134 mmol/L (136-145); Troponin (Emerg Dept Use Only) < 0.02 ng/mL (0.0-0.045)
--- NOTE | 2018-05-27 18:08 | ER ---
Nurse's Notes [facility] Name: Deacon Howe Jr Age: 82 yrs Sex: Male : 1935 Arrival Date: 05/27/2018 Time: 15:03 Bed 25 Private MD: Diagnosis: Abdominal tenderness;Chest pain, unspecified Presentation: 05/27 15:03 Presenting complaint: EMS states: chronic abd pain and chest pain x 1 day. Transition sv of care: patient was not received from another setting of care. Onset of symptoms was May 26, 2018. Care prior to arrival: None. 15:03 Method Of Arrival: Wheelchair sv 15:03 Acuity: ALIN 3 sv 15:20 Risk Assessment: Do you want to hurt yourself or someone else? Patient reports no ca1 desire to harm self or others. 15:20 Initial Sepsis Screen: Does the patient meet any 2 criteria? No. Patient's initial ca1 sepsis screen is negative. Does the patient have a suspected source of infection? No. Patient's initial sepsis screen is negative. Historical: - Allergies: 15:06 NKDA; sv - PMHx: 15:06 colon cancer; Hepatitis; Hypertension; HIV; sv - Immunization history:: Flu vaccine is not up to date. - Family history:: not pertinent. - Social history:: Smoking status: Patient uses tobacco products, smokes one-half pack cigarettes per day. - Ebola Screening: : No symptoms or risks identified at this time. Screenin:20 Abuse screen: Denies threats or abuse. Denies injuries from another. Nutritional ca1 screening: No deficits noted. Tuberculosis screening: No symptoms or risk factors identified. Fall Risk IV access (20 points). Assessment: 15:20 General: Appears in no apparent distress. comfortable, Behavior is calm, cooperative, ca1 appropriate for age. Pain: Complains of pain in abdomen Pain currently is 10 out of 10 on a pain scale. Pain began 2-3 days ago. Neuro: Level of Consciousness is awake, alert, obeys commands, Oriented to person, place, time, situation. Cardiovascular: Heart tones S1 S2 present Capillary refill < 3 seconds Patient's skin is warm and dry. Rhythm is sinus rhythm. Respiratory: Airway is patent Respiratory effort is even, unlabored, Respiratory pattern is regular, symmetrical, Breath sounds are clear bilaterally. GI: Abdomen is flat, non-distended, Bowel sounds present X 4 quads. Abd is soft X 4 quads Abdomen is tender to palpation X 4 quads. Reports nausea. : No signs and/or symptoms were reported regarding the genitourinary system. EENT: No signs and/or symptoms were reported regarding the EENT system. Derm: Skin is intact, Skin is pink, warm \T\ dry. Musculoskeletal: Circulation, motion, and sensation intact. Capillary refill < 3 seconds. 16:21 Reassessment: Patient appears in no apparent distress at this time. Patient and/or ca1 family updated on plan of care and expected duration. Pain level reassessed. Patient is alert, oriented x 3, equal unlabored respirations, skin warm/dry/pink. 16:30 Reassessment: Pt to Xray. ca1 17:22 Reassessment: Patient appears in no apparent distress at this time. Patient and/or ca1 family updated on plan of care and expected duration. Pain level reassessed. Patient is alert, oriented x 3, equal unlabored respirations, skin warm/dry/pink. 18:21 Reassessment: Patient appears in no apparent distress at this time. Patient and/or ca1 family updated on plan of care and expected duration. Pain level reassessed. Patient is alert, oriented x 3, equal unlabored respirations, skin warm/dry/pink. Vital Signs: 15:06 BP 123 / 78; Pulse 80; Resp 20; Temp 98.8; Pulse Ox 100% ; Weight 63.5 kg; Height 6 ft. sv 2 in. (187.96 cm); 16:05 BP 125 / 76; Pulse 81; Resp 19; Pulse Ox 100% on R/A; ca1 17:10 BP 123 / 75; Pulse 76; Resp 19; Pulse Ox 100% on R/A; ca1 18:15 BP 146 / 87; Pulse 79; Resp 19; Pulse Ox 100% on R/A; ca1 15:06 Body Mass Index 17.97 (63.50 kg, 187.96 cm) sv ED Course: 15:03 Patient arrived in ED. sv 15:06 Triage completed. sv 15:15 Arm band placed on right wrist. ca1 15:17 Vipul Castillo MD is Attending Physician. martin 15:20 Patient has correct armband on for positive identification. Placed in gown. Bed in low ca1 position. Call light in reach. Side rails up X 1. library monitor on. Pulse ox on. NIBP on. Warm blanket given. 15:22 EKG done, by sleep lab technician. reviewed by Vipul Castillo MD. sm3 15:27 Tessa Jose, RN is Primary Nurse. ca1 15:40 Missed attempt(s): 22 gauge in left antecubital area. ca1 15:50 Inserted saline lock: 24 gauge in right antecubital area, using aseptic technique. ca1 ,using aseptic technique. By Oc Castillo, forensic structural engineer Blood collected. 16:35 X-ray completed. Patient tolerated procedure well. Patient moved back from radiology. ml 16:36 XRAY Chest (1 view) In Process Unspecified. EDMS 16:36 Abdomen with Erect XRAY In Process Unspecified. EDMS 17:22 No provider procedures requiring assistance completed. ca1 18:28 IV discontinued, intact, bleeding controlled, No redness/swelling at site. Pressure ca1 dressing applied. Administered Medications: 15:53 Drug: NS 0.9% 1000 ml Route: IV; Rate: 125 ml/hr; Site: right antecubital; ca1 18:30 Follow up: Response: No adverse reaction; IV Status: Completed infusion ca1 15:53 Drug: NS 0.9% 500 ml Route: IV; Rate: bolus; Site: right antecubital; ca1 18:30 Follow up: IV Status: Completed infusion ca1 15:54 Drug: Pepcid 20 mg Route: IVP; Site: right antecubital; ca1 18:30 Follow up: Response: No adverse reaction; Pain is decreased ca1 17:12 Drug: Zofran 4 mg Route: IVP; Site: right antecubital; ca1 18:31 Follow up: Response: No adverse reaction; Nausea is decreased ca1 17:14 Drug: morphine 4 mg Route: IVP; Site: right antecubital; ca1 18:31 Follow up: Response: No adverse reaction; Pain is decreased ca1 Outcome: 18:07 Discharge ordered by . martin 18:28 Discharged to home via wheelchair. ca1 18:28 Condition: stable 18:28 Discharge instructions given to patient, Instructed on discharge instructions, follow up and referral plans. medication usage, Demonstrated understanding of instructions, follow-up care, medications, Prescriptions given X 4. 18:40 Patient left the ED. ca1 Signatures: Dispatcher [employer] Sarah Cheng RN RN Vipul Colby MD MD cha Lopez, Luz Diego 3 Tessa Jose RN RN ca1 Corrections: (The following items were deleted from the chart) 17:27 17:26 Risk Assessment: Do you want to hurt yourself or someone else? ca1 ca1
--- NOTE | 2018-05-27 18:08 | EDPHYS ---
Physician Documentation [facility] Name: Deacon Howe Jr Age: 82 yrs Sex: Male : 1935 Arrival Date: 05/27/2018 Time: 15:03 Bed 25 Private MD: ED Physician Vipul Castillo HPI: 05/27 15:37 This 82 yrs old Black Male presents to ER via Wheelchair with complaints of Abdominal martin Pain, Chest Pain. 15:37 The patient or guardian reports chest pain that is located primarily in the epigastric martin area. Onset: 2 day(s) ago. The pain does not radiate. Associated signs and symptoms: The patient has no apparent associated signs or symptoms. The chest pain is described as aching. Modifying factors: The symptoms are alleviated by antacids, the symptoms are aggravated by nothing. Severity of pain: At its worst the pain was mild in the emergency department the pain is unchanged. The patient has experienced similar episodes in the past, multiple times. Historical: - Allergies: 15:06 NKDA; sv - PMHx: 15:06 colon cancer; Hepatitis; Hypertension; HIV; sv - Immunization history:: Flu vaccine is not up to date. - Family history:: not pertinent. - Social history:: Smoking status: Patient uses tobacco products, smokes one-half pack cigarettes per day. - Ebola Screening: : No symptoms or risks identified at this time. ROS: 15:37 Constitutional: Negative for fever, chills, and weight loss, Eyes: Negative for injury, martin pain, redness, and discharge, ENT: Negative for injury, pain, and discharge, Neck: Negative for injury, pain, and swelling, Respiratory: Negative for shortness of breath, cough, wheezing, and pleuritic chest pain, Back: Negative for injury and pain, : Negative for injury, bleeding, discharge, and swelling, MS/Extremity: Negative for injury and deformity, Skin: Negative for injury, rash, and discoloration, Neuro: Negative for headache, weakness, numbness, tingling, and seizure, Psych: Negative for depression, anxiety, suicide ideation, homicidal ideation, and hallucinations, Allergy/Immunology: Negative for hives, rash, and allergies, Endocrine: Negative for neck swelling, polydipsia, polyuria, polyphagia, and marked weight changes, Hematologic/Lymphatic: Negative for swollen nodes, abnormal bleeding, and unusual bruising. 15:37 Cardiovascular: Positive for 15:37 Abdomen/GI: Positive for abdominal pain, of the right upper quadrant, left upper quadrant, right lower quadrant and left lower quadrant. Exam: 15:37 Constitutional: This is a well developed, well nourished patient who is awake, alert, martin and in no acute distress. Head/Face: Normocephalic, atraumatic. Eyes: Pupils equal round and reactive to light, extra-ocular motions intact. Lids and lashes normal. Conjunctiva and sclera are non-icteric and not injected. Cornea within normal limits. Periorbital areas with no swelling, redness, or edema. ENT: Nares patent. No nasal discharge, no septal abnormalities noted. Tympanic membranes are normal and external auditory canals are clear. Oropharynx with no redness, swelling, or masses, exudates, or evidence of obstruction, uvula midline. Mucous membranes moist. Neck: Trachea midline, no thyromegaly or masses palpated, and no cervical lymphadenopathy. Supple, full range of motion without nuchal rigidity, or vertebral point tenderness. No Meningismus. Chest/axilla: Normal chest wall appearance and motion. Nontender with no deformity. No lesions are appreciated. Cardiovascular: Regular rate and rhythm with a normal S1 and S2. No gallops, murmurs, or rubs. Normal PMI, no JVD. No pulse deficits. Respiratory: Lungs have equal breath sounds bilaterally, clear to auscultation and percussion. No rales, rhonchi or wheezes noted. No increased work of breathing, no retractions or nasal flaring. Abdomen/GI: Soft, non-tender, with normal bowel sounds. No distension or tympany. No guarding or rebound. No evidence of tenderness throughout. Back: No spinal tenderness. No costovertebral tenderness. Full range of motion. Skin: Warm, dry with normal turgor. Normal color with no rashes, no lesions, and no evidence of cellulitis. MS/ Extremity: Pulses equal, no cyanosis. Neurovascular intact. Full, normal range of motion. Neuro: Awake and alert, GCS 15, oriented to person, place, time, and situation. Cranial nerves II-XII grossly intact. Motor strength 5/5 in all extremities. Sensory grossly intact. Cerebellar exam normal. Normal gait. Psych: Awake, alert, with orientation to person, place and time. Behavior, mood, and affect are within normal limits. Vital Signs: 15:06 BP 123 / 78; Pulse 80; Resp 20; Temp 98.8; Pulse Ox 100% ; Weight 63.5 kg; Height 6 ft. sv 2 in. (187.96 cm); 16:05 BP 125 / 76; Pulse 81; Resp 19; Pulse Ox 100% on R/A; ca1 17:10 BP 123 / 75; Pulse 76; Resp 19; Pulse Ox 100% on R/A; ca1 18:15 BP 146 / 87; Pulse 79; Resp 19; Pulse Ox 100% on R/A; ca1 15:06 Body Mass Index 17.97 (63.50 kg, 187.96 cm) sv MDM: 15:17 Patient medically screened. [facility] 15:39 Data reviewed: vital signs, nurses notes, lab test result(s), EKG, radiologic studies. [facility] 05/27 15:34 Order name: Basic Metabolic Panel; Complete Time: 18:06 [facility] 05/27 15:34 Order name: CBC with Diff; Complete Time: 17:09 martin 05/27 15:34 Order name: LFT's; Complete Time: 18:06 [facility] 05/27 15:34 Order name: Magnesium; Complete Time: 18:06 [facility] 05/27 15:34 Order name: NT PRO-BNP; Complete Time: 18:06 martin 05/27 15:34 Order name: PT-INR; Complete Time: 17:09 [facility] 05/27 15:34 Order name: Troponin (emerg Dept Use Only); Complete Time: 18:06 [facility] 05/27 15:34 Order name: XRAY Chest (1 view); Complete Time: 17:09 martin 05/27 15:34 Order name: Lipase; Complete Time: 18:06 [facility] 05/27 15:36 Order name: Abdomen with Erect XRAY; Complete Time: 17:09 martin 05/27 18:24 Order name: Urine Dipstick--Ancillary (enter results) 05/27 15:34 Order name: EKG; Complete Time: 15:35 martin 05/27 15:34 Order name: Cardiac monitoring; Complete Time: 15:55 [facility] 05/27 15:34 Order name: EKG - Nurse/Tech; Complete Time: 15:55 [facility] 05/27 15:34 Order name: IV Saline Lock; Complete Time: 16:38 [facility] 05/27 15:34 Order name: Labs collected and sent; Complete Time: 16:38 [facility] 05/27 15:34 Order name: O2 Per Protocol; Complete Time: 15:55 [facility] 05/27 15:34 Order name: O2 Sat Monitoring; Complete Time: 15:55 [facility] 05/27 15:36 Order name: Urine Dipstick-Ancillary (obtain specimen); Complete Time: 18:21 [facility] Administered Medications: 15:53 Drug: NS 0.9% 1000 ml Route: IV; Rate: 125 ml/hr; Site: right antecubital; ca1 18:30 Follow up: Response: No adverse reaction; IV Status: Completed infusion ca1 15:53 Drug: NS 0.9% 500 ml Route: IV; Rate: bolus; Site: right antecubital; ca1 18:30 Follow up: IV Status: Completed infusion ca1 15:54 Drug: Pepcid 20 mg Route: IVP; Site: right antecubital; ca1 18:30 Follow up: Response: No adverse reaction; Pain is decreased ca1 17:12 Drug: Zofran 4 mg Route: IVP; Site: right antecubital; ca1 18:31 Follow up: Response: No adverse reaction; Nausea is decreased ca1 17:14 Drug: morphine 4 mg Route: IVP; Site: right antecubital; ca1 18:31 Follow up: Response: No adverse reaction; Pain is decreased ca1 Disposition: 05/27/18 18:07 Discharged to Home. Impression: Abdominal tenderness, Chest pain, unspecified. - Condition is Stable. - Discharge Instructions: Abdominal Pain, Adult, Nonspecific Chest Pain, Abdominal Pain, Adult, [id number], Nonspecific Chest Pain, [id number]. - Prescriptions for Bentyl 20 mg Oral Tablet - take 1 tablet by ORAL route every 6 hours As needed; 20 tablet. Pepcid 20 mg Oral Tablet - take 1 tablet by ORAL route every 12 hours for 10 days; 20 tablet. Tylenol- Codeine #3 300-30 mg Oral Tablet - take 2 tablets by ORAL route every 6 hours As needed; 20 tablet. Zofran 4 mg Oral Tablet - take 1 tablet by ORAL route every 12 hours As needed; 20 tablet. - Medication Reconciliation Form, Thank You Letter, Antibiotic Education, Prescription Opioid Use form. - Follow up: Private Physician; When: 2 - 3 days; Reason: Recheck today's complaints, Continuance of care, Re-evaluation by your physician. - Problem is new. - Symptoms have improved. Signatures: Dispatcher [employer] Sarah Cheng, RN RN Vipul Colby MD MD cha Acob, Cheryl, RN RN ca1 Corrections: (The following items were deleted from the chart) 18:40 18:07 05/27/2018 18:07 Discharged to Home. Impression: Abdominal tenderness; Chest ca1 pain, unspecified. Condition is Stable. Discharge Instructions: Abdominal Pain, Adult, Nonspecific Chest Pain, Abdominal Pain, Adult, [id number], Nonspecific Chest Pain, [id number]. Prescriptions for Bentyl 20 mg Oral Tablet - take 1 tablet by ORAL route every 6 hours As needed; 20 tablet, Pepcid 20 mg Oral Tablet - take 1 tablet by ORAL route every 12 hours for 10 days; 20 tablet, Tylenol-Codeine #3 300-30 mg Oral Tablet - take 2 tablets by ORAL route every 6 hours As needed; 20 tablet, Zofran 4 mg Oral Tablet - take 1 tablet by ORAL route every 12 hours As needed; 20 tablet. and Forms are Medication Reconciliation Form, Thank You Letter, Antibiotic Education, Prescription Opioid Use. Follow up: Private Physician; When: 2 - 3 days; Reason: Recheck today's complaints, Continuance of care, Re-evaluation by your physician. Problem is new. Symptoms have improved. martin
[2018-05-27 18:52] VITALS: TEMP 98.8; O2SAT 100
[2018-05-27 18:52] LABS: Urine Blood NEGATIVE (NEG); Urine Glucose NEGATIVE (NEG); Urine Protein 1+ (NEG); Urine pH 5.5 (5.0-7.0)
[2018-05-27 19:04] VITALS: BP 146/87
--- NOTE | 2018-05-28 09:23 | EKG ---
Test Date: 2018-05-27 Test Time: 15:19:10 [employer] Team Member: SALVADOR MEASUREMENT RESULTS: Intervals: Rate: 73 OH: 176 QRSD: 82 QT: 384 QTc: 423 [place]: P: 19 OH: 176 QRS: 83 T: 88 INTERPRETIVE STATEMENTS: Sinus rhythm with occasional premature ventricular complexes Otherwise normal ECG Compared to ECG 05/23/2018 14:02:23 Ventricular premature complex(es) now present ST (T wave) deviation no longer present Electronically Signed On 05-28-18 09:21:35 CDT by Rocco Menjivar
== END 2018-05-27 18:40 | disposition home or self-care (01) ==
LOC: ER 15:01
DX: R10.9 Unspecified abdominal pain (principal); R07.9 Chest pain, unspecified; C18.9 Malignant neoplasm of colon, unspecified; I10 Essential (primary) hypertension; F17.210 Nicotine dependence, cigarettes, uncomplicated
CPT/HCPCS: 96361; 93005; 85025; 80048; 36415; 83735; 85610; 80076; 81003; 84484; 83690; 83880; 74019; 71045; 96375; 96374; 99285; J7030; J2405

== ENCOUNTER 2018-06-06 04:03 | Emergency (ER) | payer OTHER ==
[2018-06-06] MEDS ORDERED: cloNIDine HCl 0.1 MG TAB ONE (04:57)
--- NOTE | 2018-06-06 06:04 | ER ---
Nurse's Notes [facility] Name: Deacon Howe Jr Age: 82 yrs Sex: Male : 1935 Arrival Date: 06/06/2018 Time: 04:20 Bed 18 Private MD: Diagnosis: Hypertensive urgency Presentation: 06/06 03:45 Presenting complaint: EMS states: Pt reports pain all over. jb4 03:45 Transition of care: patient was not received from another setting of care. Onset of jb4 symptoms was June 06, 2018. Risk Assessment: Do you want to hurt yourself or someone else? Patient reports no desire to harm self or others. Initial Sepsis Screen: Does the patient meet any 2 criteria? No. Patient's initial sepsis screen is negative. Does the patient have a suspected source of infection? No. Patient's initial sepsis screen is negative. Care prior to arrival: None. 03:45 Method Of Arrival: EMS: [facility] jb4 03:45 Acuity: ALIN 3 jb4 Triage Assessment: 04:35 General: Appears in no apparent distress. comfortable, Behavior is calm, cooperative, cc3 appropriate for age. Pain: Complains of pain in generalized body pain. Historical: - Allergies: 03:45 NKDA; jb4 - Home Meds: 03:45 None [Active]; jb4 - PMHx: 03:45 colon cancer; Hepatitis; Hypertension; HIV; jb4 - PSHx: 03:45 hip; colon; Cholecystectomy; jb4 - Immunization history:: Adult Immunizations unknown. - Social history:: Smoking status: Patient/guardian denies using tobacco, Patient/guardian denies using alcohol, street drugs. - Ebola Screening: : No symptoms or risks identified at this time. Screenin:35 Abuse screen: Denies threats or abuse. Denies injuries from another. Nutritional cc3 screening: No deficits noted. Tuberculosis screening: No symptoms or risk factors identified. Fall Risk Ambulatory Aid- None/Bed Rest/Nurse Assist (0 pts). Gait- Normal/Bed Rest/Wheelchair (0 pts) Mental Status- Oriented to own ability (0 pts). Assessment: 06:20 Reassessment: Patient appears in no apparent distress at this time. Patient and/or cc3 family updated on plan of care and expected duration. Pain level reassessed. Patient is alert, oriented x 3, equal unlabored respirations, skin warm/dry/pink. Dr. Colby discharged the patient home, no prescription given. No IV cannula in situ. Patient left ER vitally stable by wheelchair. Vital Signs: 03:45 BP 178 / 98; Pulse 67; Resp 16; Temp 97.8(O); Pulse Ox 95% on R/A; Weight 72.57 kg (R); jb4 Height 6 ft. 2 in. (187.96 cm) (R); Pain 8/10; 04:45 BP 151 / 65; Pulse 66; Resp 19 S; Pulse Ox 100% on R/A; cc3 05:15 BP 141 / 79; Pulse 60; Resp 18 S; Pulse Ox 99% on R/A; cc3 06:00 BP 127 / 94; Pulse 77; Resp 18 S; Pulse Ox 98% on R/A; cc3 03:45 Body Mass Index 20.54 (72.57 kg, 187.96 cm) jb4 ED Course: 03:45 Arm band placed on right wrist. jb4 04:20 Patient arrived in ED. cc3 04:24 Jim Colby MD is Attending Physician. tw4 04:35 Garima Gatica is Primary Nurse. cc3 04:35 Patient has correct armband on for positive identification. Bed in low position. Call cc3 light in reach. Side rails up X2. Pulse ox on. NIBP on. 05:11 Triage completed. jb4 06:20 No provider procedures requiring assistance completed. Patient did not have IV access cc3 during this emergency room visit. Administered Medications: 04:50 Drug: cloNIDine 0.2 mg Route: PO; cc3 06:00 Follow up: Response: No adverse reaction; Blood pressure is lowered cc3 Outcome: 06:03 Discharge ordered by . tw4 06:20 Discharged to home ambulatory. cc3 06:20 Condition: stable 06:20 Discharge instructions given to patient, Instructed on discharge instructions, follow up and referral plans. Demonstrated understanding of instructions, follow-up care. 06:23 Patient left the ED. cc3 Signatures: Hudson Johnson, RN RN jb4 Jim Colby MD MD 4 Garima Gatica cc3 Corrections: (The following items were deleted from the chart) 06:07 06:00 BP 127 / 94; Pulse 77bpm; Resp 18bpm; Spontaneous; Pulse Ox 96% RA; cc3 cc3
--- NOTE | 2018-06-06 06:04 | EDPHYS ---
Physician Documentation [facility] Name: Deacon Howe Jr Age: 82 yrs Sex: Male : 1935 Arrival Date: 06/06/2018 Time: 04:20 Bed 18 Private MD: ED Physician Jim Colby HPI: 06/06 06:00 This 82 yrs old Black Male presents to ER via EMS with complaints of pain all over. tw4 06:00 pt states that he has "pain all over" . Pt is a frequent pt in the ED. Onset: The tw4 symptoms/episode began/occurred today. Severity of symptoms: At their worst the symptoms were very mild in the emergency department the symptoms have resolved. The patient has not experienced similar symptoms in the past. Historical: - Allergies: 03:45 NKDA; jb4 - Home Meds: 03:45 None [Active]; jb4 - PMHx: 03:45 colon cancer; Hepatitis; Hypertension; HIV; jb4 - PSHx: 03:45 hip; colon; Cholecystectomy; jb4 - Immunization history:: Adult Immunizations unknown. - Social history:: Smoking status: Patient/guardian denies using tobacco, Patient/guardian denies using alcohol, street drugs. - Ebola Screening: : No symptoms or risks identified at this time. ROS: 06:00 Constitutional: Negative for fever, chills, and weight loss, Eyes: Negative for injury, tw4 pain, redness, and discharge, Cardiovascular: Negative for chest pain, palpitations, and edema, Respiratory: Negative for shortness of breath, cough, wheezing, and pleuritic chest pain, Abdomen/GI: Negative for abdominal pain, nausea, vomiting, diarrhea, and constipation, Back: Negative for injury and pain, MS/Extremity: Negative for injury and deformity, Skin: Negative for injury, rash, and discoloration. Exam: 06:00 Constitutional: This is a well developed, well nourished patient who is awake, alert, tw4 and in no acute distress. Head/Face: Normocephalic, atraumatic. Chest/axilla: Normal chest wall appearance and motion. Nontender with no deformity. No lesions are appreciated. Cardiovascular: Regular rate and rhythm with a normal S1 and S2. No gallops, murmurs, or rubs. Normal PMI, no JVD. No pulse deficits. Respiratory: Lungs have equal breath sounds bilaterally, clear to auscultation and percussion. No rales, rhonchi or wheezes noted. No increased work of breathing, no retractions or nasal flaring. Abdomen/GI: Soft, non-tender, with normal bowel sounds. No distension or tympany. No guarding or rebound. No evidence of tenderness throughout. Back: No spinal tenderness. No costovertebral tenderness. Full range of motion. MS/ Extremity: Pulses equal, no cyanosis. Neurovascular intact. Full, normal range of motion. Neuro: Awake and alert, GCS 15, oriented to person, place, time, and situation. Cranial nerves II-XII grossly intact. Motor strength 5/5 in all extremities. Sensory grossly intact. Cerebellar exam normal. Normal gait. Vital Signs: 03:45 BP 178 / 98; Pulse 67; Resp 16; Temp 97.8(O); Pulse Ox 95% on R/A; Weight 72.57 kg (R); jb4 Height 6 ft. 2 in. (187.96 cm) (R); Pain 8/10; 04:45 BP 151 / 65; Pulse 66; Resp 19 S; Pulse Ox 100% on R/A; cc3 05:15 BP 141 / 79; Pulse 60; Resp 18 S; Pulse Ox 99% on R/A; cc3 06:00 BP 127 / 94; Pulse 77; Resp 18 S; Pulse Ox 98% on R/A; cc3 03:45 Body Mass Index 20.54 (72.57 kg, 187.96 cm) 4 MDM: 04:24 Patient medically screened. tw4 06:00 Differential Diagnosis altered mental status, sepsis. Data reviewed: vital signs, tw4 nurses notes. Test interpretation: by ED physician or midlevel provider: ECG. Counseling: I had a detailed discussion with the patient and/or guardian regarding: the historical points, exam findings, and any diagnostic results supporting the discharge/admit diagnosis. Special discussion: I discussed with the patient/guardian in detail that at this point there is no indication for admission to the hospital. It is understood, however, that if the symptoms persist or worsen the patient needs to return immediately for re-evaluation. Administered Medications: 04:50 Drug: cloNIDine 0.2 mg Route: PO; cc3 06:00 Follow up: Response: No adverse reaction; Blood pressure is lowered cc3 Disposition: 06/06/18 06:03 Discharged to Home. Impression: Hypertensive urgency. - Condition is Stable. - Discharge Instructions: Hypertension. - Medication Reconciliation Form, Thank You Letter, Antibiotic Education, Prescription Opioid Use form. - Follow up: Private Physician; When: Upon discharge from the Emergency Department; Reason: If symptoms return, Recheck today's complaints, Continuance of care. - Problem is new. - Symptoms have improved. Signatures: Hudson Johnson RN RN jb4 Jim Colby MD MD tw4 Garima Gatica cc3 Corrections: (The following items were deleted from the chart) 06:23 06:03 06/06/2018 06:03 Discharged to Home. Impression: Hypertensive urgency. Condition cc3 is Stable. Forms are Medication Reconciliation Form, Thank You Letter, Antibiotic Education, Prescription Opioid Use. Follow up: Private Physician; When: Upon discharge from the Emergency Department; Reason: If symptoms return, Recheck today's complaints, Continuance of care. Problem is new. Symptoms have improved. tw4
[2018-06-06 06:30] VITALS: BP 127/94; O2SAT 98
== END 2018-06-06 06:23 | disposition home or self-care (01) ==
LOC: ER 04:03
DX: I16.0 Hypertensive urgency (principal)
CPT/HCPCS: 99284

== ENCOUNTER 2018-06-23 01:54 | Observation (INO) | payer OTHER ==
[2018-06-23] MEDS ORDERED: NA CHLORIDE 0.9% 1,000 ML ONE (02:42)
[2018-06-23] MEDS ORDERED: MORPHINE 2 MG/ML SYR ONE ×2 (02:42→04:34)
[2018-06-23] MEDS ORDERED: ONDANSETRON 4 MG/2 ML VIAL ONE (02:42)
[2018-06-23 03:23] LABS: Urine Blood NEGATIVE (NEG); Urine Glucose NEGATIVE (NEG); Urine Protein NEGATIVE (NEG); Urine Specific Gravity 1.015 (1.005-1.030)
[2018-06-23 03:26] LABS: Barbiturates NEGATIVE (NEGATIVE); Benzodiazepines NEGATIVE (NEGATIVE); Cocaine NEGATIVE (NEGATIVE); METHAMPHETAM NEGATIVE (NEGATIVE); Methadone NEGATIVE (NEGATIVE); Opiates NEGATIVE (NEGATIVE); Phencyclidine NEGATIVE (NEGATIVE); THC Cannibis NEGATIVE (NEGATIVE)
--- NOTE | 2018-06-23 03:30 | ER ---
Nurse's Notes [facility] Name: Deacon Howe Jr Age: 82 yrs Sex: Male : 1935 Arrival Date: 06/23/2018 Time: 01:54 Bed 6 Private MD: Diagnosis: Abnormal findings on diagnostic imaging of lung;Strain of muscle and tendon of front wall of thorax;Strain of muscle and tendon of back wall of thorax;Human immunodeficiency virus [HIV] disease Presentation: 06/23 01:57 Presenting complaint: Patient states: "the pt is reporting pain in his left knee today. jd3 he reported that when he stood up it hurt and was hard to stand.". Transition of care: patient was not received from another setting of care. Onset of symptoms was June 23, 2018. Risk Assessment: Do you want to hurt yourself or someone else? Patient reports no desire to harm self or others. Initial Sepsis Screen: Does the patient meet any 2 criteria? No. Patient's initial sepsis screen is negative. Does the patient have a suspected source of infection? No. Patient's initial sepsis screen is negative. Care prior to arrival: None. 01:57 Method Of Arrival: EMS: [facility] jd3 01:57 Acuity: ALIN 3 jd3 Historical: - Allergies: 02:00 NKDA; jd3 - Home Meds: 02:00 None [Active]; jd3 - PMHx: 02:00 colon cancer; Hepatitis; HIV; Hypertension; jd3 - PSHx: 02:00 colon; Cholecystectomy; hip; jd3 - Immunization history:: Adult Immunizations unknown. - Social history:: Smoking status: Patient uses tobacco products, smokes one-half pack cigarettes per day. - Ebola Screening: : Patient negative for fever greater than or equal to 101.5 degrees Fahrenheit, and additional compatible Ebola Virus Disease symptoms. - Family history:: not pertinent. Screenin:07 Abuse screen: Denies threats or abuse. Nutritional screening: No deficits noted. jd3 Tuberculosis screening: No symptoms or risk factors identified. Fall Risk Ambulatory Aid- None/Bed Rest/Nurse Assist (0 pts). Gait- Weak (10 pts.). Mental Status- Oriented to own ability (0 pts). Total Pedroza Fall Scale indicates No Risk (0-24 pts). Assessment: 02:03 General: Appears in no apparent distress. uncomfortable, Behavior is calm, cooperative, jd3 appropriate for age. Pain: Complains of pain in left knee Quality of pain is described as aching. Neuro: Level of Consciousness is awake, alert, obeys commands, Oriented to person, place, time, situation, Appropriate for age. Cardiovascular: Heart tones present Capillary refill < 3 seconds Patient's skin is warm and dry. Respiratory: Airway is patent is compromised Respiratory effort is even, unlabored, Respiratory pattern is regular, symmetrical, Breath sounds are clear bilaterally. GI: No signs and/or symptoms were reported involving the gastrointestinal system. : No signs and/or symptoms were reported regarding the genitourinary system. EENT: No signs and/or symptoms were reported regarding the EENT system. Derm: Skin is intact, Skin is dry, Skin is normal, Skin temperature is warm. Musculoskeletal: Circulation, motion, and sensation intact. 03:17 Reassessment: Patient appears in no apparent distress at this time. Patient and/or jd3 family updated on plan of care and expected duration. Pain level reassessed. Patient is alert, oriented x 3, equal unlabored respirations, skin warm/dry/pink. 04:54 Reassessment: Patient appears in no apparent distress at this time. Patient and/or jd3 family updated on plan of care and expected duration. Pain level reassessed. Patient is alert, oriented x 3, equal unlabored respirations, skin warm/dry/pink. 05:57 Reassessment: Patient appears in no apparent distress at this time. Patient and/or jd3 family updated on plan of care and expected duration. Pain level reassessed. Patient is alert, oriented x 3, equal unlabored respirations, skin warm/dry/pink. charting continued in [facility]. Vital Signs: 02:02 BP 175 / 90; Pulse 65; Resp 18 S; Temp 98.4(TE); Pulse Ox 98% on R/A; Weight 72.57 kg jd3 (R); Height 6 ft. 1 in. (185.42 cm) (R); Pain 8/10; 03:18 BP 148 / 82; Pulse 64; Resp 17 S; Pulse Ox 100% on R/A; jd3 04:54 BP 162 / 86; Pulse 60; Resp 17 S; Pulse Ox 97% on R/A; jd3 08:00 BP 134 / 83; Pulse 63; Resp 17; Temp 98.4; Pulse Ox 97% ; Pain 4/10; sg 02:02 Body Mass Index 21.11 (72.57 kg, 185.42 cm) jd3 ED Course: 01:54 Patient arrived in ED. ds1 01:55 Vipul Castillo MD is Attending Physician. [facility] 01:56 Tigre Enciso RN is Primary Nurse. jd3 01:59 Triage completed. jd3 02:00 Inserted saline lock: 20 gauge in right forearm, using aseptic technique. Blood jd3 collected. 02:03 Arm band placed on. jd3 02:40 X-ray completed. Portable x-ray completed in exam room. Patient tolerated procedure kw well. 02:42 XRAY Chest (1 view) In Process Unspecified. EDMS 02:42 Pelvis XRAY In Process Unspecified. EDMS 02:42 Femur Left In Process Unspecified. EDMS 03:14 Patient has correct armband on for positive identification. Placed in gown. Bed in low jd3 position. Call light in reach. Side rails up X 1. 03:26 Tracey Nieto MD is Hospitalizing Provider. [facility] 04:49 Radiology exam delayed due to lab results not completed at this time. (BUN/Creatinine). 05:57 No provider procedures requiring assistance completed. Patient admitted, IV remains in jd3 place. Administered Medications: 02:42 Drug: NS 0.9% 1000 ml Route: IV; Rate: 125 ml/hr; Site: right forearm; jd3 05:58 Follow up: Response: No adverse reaction; IV Status: Infusion continued upon admission jd3 02:42 Drug: morphine 2 mg Route: IVP; Site: right forearm; jd3 04:09 Follow up: Response: No adverse reaction jd3 02:43 Drug: Zofran 4 mg Route: IVP; Site: right forearm; jd3 04:09 Follow up: Response: No adverse reaction jd3 04:30 Drug: Zosyn 3.375 grams Route: IVPB; Infused Over: 60 mins; Site: right forearm; jd3 05:58 Follow up: Response: No adverse reaction; IV Status: Completed infusion jd3 04:33 Drug: morphine 2 mg Route: IVP; Site: right forearm; jd3 05:59 Follow up: Response: No adverse reaction jd3 Outcome: 03:30 Decision to Hospitalize by Provider. [facility] 05:57 Admitted to ER Hold. Please see [facility] for further documentation. jd3 05:57 Condition: stable 05:57 Instructed on the need for admit, Demonstrated understanding of instructions. 07:35 Admitted to accompanied by tech, Report called to MARYANNE Campbell for room 225 sg 07:35 Condition: stable 07:35 Instructed on waiting a call back confirming that room 225 has been cleaned and is ready for patient.pt stated understanding 08:09 Admitted to accompanied by tech, via stretcher, with chart. sg 08:09 Instructed on the room is now ready, pt to be transported upstairs at this time 08:38 Patient left the ED. sg Signatures: Dispatcher [employer] EDRufino Trivedi, RN RN Vipul Guzmán MD MD cha Hagler, Valentín Landrum, Faviola ds1 Carmela Montana Jonathon, RN RN jd3
--- NOTE | 2018-06-23 03:31 | EDPHYS ---
Physician Documentation [facility] Name: Deacon Howe Jr Age: 82 yrs Sex: Male : 1935 Arrival Date: 06/23/2018 Time: 01:54 Bed 6 Private MD: ED Physician Vipul Castillo HPI: 06/23 02:05 This 82 yrs old Black Male presents to ER via EMS with complaints of right side pain martin and right leg. 02:05 The patient presents with decreased range of motion, pain, that is acute. The martin complaints affect the right hip and lateral aspect of right thigh. Context: The problem was sustained at home. Onset: The symptoms/episode began/occurred today. Modifying factors: The symptoms are alleviated by nothing. the symptoms are aggravated by movement. Associated signs and symptoms: The patient has no apparent associated signs or symptoms. The patient presents with abdominal pain in the right upper quadrant, right lower quadrant. Onset: The symptoms/episode began/occurred today. Treatment prior to arrival includes: no previous treatment. Historical: - Allergies: 02:00 NKDA; jd3 - Home Meds: 02:00 None [Active]; jd3 - PMHx: 02:00 colon cancer; Hepatitis; HIV; Hypertension; jd3 - PSHx: 02:00 colon; Cholecystectomy; hip; jd3 - Immunization history:: Adult Immunizations unknown. - Social history:: Smoking status: Patient uses tobacco products, smokes one-half pack cigarettes per day. - Ebola Screening: : Patient negative for fever greater than or equal to 101.5 degrees Fahrenheit, and additional compatible Ebola Virus Disease symptoms. - Family history:: not pertinent. ROS: 02:05 Constitutional: Negative for fever, chills, and weight loss, Eyes: Negative for injury, martin pain, redness, and discharge, ENT: Negative for injury, pain, and discharge, Neck: Negative for injury, pain, and swelling, Cardiovascular: Negative for chest pain, palpitations, and edema, Respiratory: Negative for shortness of breath, cough, wheezing, and pleuritic chest pain, : Negative for injury, bleeding, discharge, and swelling, Skin: Negative for injury, rash, and discoloration, Neuro: Negative for headache, weakness, numbness, tingling, and seizure, Psych: Negative for depression, anxiety, suicide ideation, homicidal ideation, and hallucinations, Allergy/Immunology: Negative for hives, rash, and allergies, Endocrine: Negative for neck swelling, polydipsia, polyuria, polyphagia, and marked weight changes, Hematologic/Lymphatic: Negative for swollen nodes, abnormal bleeding, and unusual bruising. 02:05 Abdomen/GI: Positive for abdominal pain. 02:05 Back: Positive for pain at rest, pain with movement. 02:05 MS/extremity: Positive for decreased range of motion, pain, tenderness, of the right hip and lateral aspect of right thigh. Exam: 02:05 Constitutional: This is a well developed, well nourished patient who is awake, alert, martin and in no acute distress. Head/Face: Normocephalic, atraumatic. Eyes: Pupils equal round and reactive to light, extra-ocular motions intact. Lids and lashes normal. Conjunctiva and sclera are non-icteric and not injected. Cornea within normal limits. Periorbital areas with no swelling, redness, or edema. ENT: Nares patent. No nasal discharge, no septal abnormalities noted. Tympanic membranes are normal and external auditory canals are clear. Oropharynx with no redness, swelling, or masses, exudates, or evidence of obstruction, uvula midline. Mucous membranes moist. Neck: Trachea midline, no thyromegaly or masses palpated, and no cervical lymphadenopathy. Supple, full range of motion without nuchal rigidity, or vertebral point tenderness. No Meningismus. Chest/axilla: Normal chest wall appearance and motion. Nontender with no deformity. No lesions are appreciated. Cardiovascular: Regular rate and rhythm with a normal S1 and S2. No gallops, murmurs, or rubs. Normal PMI, no JVD. No pulse deficits. Respiratory: Lungs have equal breath sounds bilaterally, clear to auscultation and percussion. No rales, rhonchi or wheezes noted. No increased work of breathing, no retractions or nasal flaring. Male : Normal genitalia with no discharge or lesions. Skin: Warm, dry with normal turgor. Normal color with no rashes, no lesions, and no evidence of cellulitis. Neuro: Awake and alert, GCS 15, oriented to person, place, time, and situation. Cranial nerves II-XII grossly intact. Motor strength 5/5 in all extremities. Sensory grossly intact. Cerebellar exam normal. Normal gait. Psych: Awake, alert, with orientation to person, place and time. Behavior, mood, and affect are within normal limits. 02:05 Abdomen/GI: Inspection: abdomen appears normal, Bowel sounds: normal, Palpation: moderate abdominal tenderness, in the anterior aspect of right lateral abdomen, posterior aspect of right lateral abdomen, right upper quadrant and right lower quadrant, Liver: no appreciated palpable abnormalities, Hernia: not appreciated. 02:05 Musculoskeletal/extremity: ROM: limited active range of motion, limited passive range of motion, limited active range of motion due to pain, limited passive range of motion due to pain, in the right leg, Circulation is intact in all extremities. Sensation intact. Compartment Syndrome exam of affected extremity: is normal. DVT Exam: no swelling, negative Homans' sign noted on exam, no appreciated bluish discoloration, no erythema, no increased warmth, pain, tenderness. Vital Signs: 02:02 BP 175 / 90; Pulse 65; Resp 18 S; Temp 98.4(TE); Pulse Ox 98% on R/A; Weight 72.57 kg jd3 (R); Height 6 ft. 1 in. (185.42 cm) (R); Pain 8/10; 03:18 BP 148 / 82; Pulse 64; Resp 17 S; Pulse Ox 100% on R/A; jd3 04:54 BP 162 / 86; Pulse 60; Resp 17 S; Pulse Ox 97% on R/A; jd3 08:00 BP 134 / 83; Pulse 63; Resp 17; Temp 98.4; Pulse Ox 97% ; Pain 4/10; sg 02:02 Body Mass Index 21.11 (72.57 kg, 185.42 cm) jd3 MDM: 01:55 Patient medically screened. [facility] 02:13 Data reviewed: vital signs, nurses notes, lab test result(s), EKG, radiologic studies, [facility] CT scan, plain films. 06/23 02:04 Order name: Basic Metabolic Panel; Complete Time: 06:53 [facility] 06/23 02:04 Order name: CBC with Diff; Complete Time: 06:53 [facility] 06/23 02:04 Order name: LFT's; Complete Time: 06:53 [facility] 06/23 02:04 Order name: Magnesium; Complete Time: 06:53 [facility] 06/23 02:04 Order name: NT PRO-BNP; Complete Time: 06:53 [facility] 06/23 02:04 Order name: PT-INR; Complete Time: 06:53 [facility] 06/23 02:04 Order name: Troponin (emerg Dept Use Only); Complete Time: 06:53 [facility] 06/23 02:04 Order name: Acetaminophen; Complete Time: 06:53 [facility] 06/23 02:04 Order name: ETOH Level; Complete Time: 06:53 [facility] 06/23 02:04 Order name: Ptt, Activated; Complete Time: 06:53 [facility] 06/23 02:04 Order name: Salicylate; Complete Time: 06:53 [facility] 06/23 02:04 Order name: Urine Drug Screen; Complete Time: 04:01 [facility] 06/23 02:04 Order name: Lipase; Complete Time: 06:53 [facility] 06/23 03:10 Order name: Urine Dipstick--Ancillary (enter results); Complete Time: 03:24 [facility] 06/23 02:04 Order name: XRAY Chest (1 view) [facility] 06/23 02:04 Order name: EKG; Complete Time: 02:05 [facility] 06/23 02:04 Order name: Cardiac monitoring; Complete Time: 02:42 [facility] 06/23 02:04 Order name: EKG - Nurse/Tech; Complete Time: 02:43 [facility] 06/23 02:04 Order name: CT Aorta for Dissection [facility] 06/23 02:04 Order name: Pelvis XRAY [facility] 06/23 02:41 Order name: Femur Left [facility] 06/23 03:25 Order name: Blood Culture Adult (2) [facility] 06/23 03:25 Order name: Procalcitonin; Complete Time: 06:53 [facility] 06/23 08:20 Order name: CT [facility] 06/23 02:04 Order name: IV Saline Lock; Complete Time: 02:42 [facility] 06/23 02:04 Order name: Labs collected and sent; Complete Time: 02:41 [facility] 06/23 02:04 Order name: O2 Per Protocol; Complete Time: 02:10 [facility] 06/23 02:04 Order name: O2 Sat Monitoring; Complete Time: 02:09 [facility] 06/23 02:04 Order name: Urine Dipstick-Ancillary (obtain specimen); Complete Time: 03:10 [facility] Administered Medications: 02:42 Drug: NS 0.9% 1000 ml Route: IV; Rate: 125 ml/hr; Site: right forearm; jd3 05:58 Follow up: Response: No adverse reaction; IV Status: Infusion continued upon admission jd3 02:42 Drug: morphine 2 mg Route: IVP; Site: right forearm; jd3 04:09 Follow up: Response: No adverse reaction jd3 02:43 Drug: Zofran 4 mg Route: IVP; Site: right forearm; jd3 04:09 Follow up: Response: No adverse reaction jd3 04:30 Drug: Zosyn 3.375 grams Route: IVPB; Infused Over: 60 mins; Site: right forearm; jd3 05:58 Follow up: Response: No adverse reaction; IV Status: Completed infusion jd3 04:33 Drug: morphine 2 mg Route: IVP; Site: right forearm; jd3 05:59 Follow up: Response: No adverse reaction jd3 Disposition: 06/23/18 03:30 Hospitalization ordered by Tracey Nieto for Inpatient Admission. Preliminary diagnosis are Abnormal findings on diagnostic imaging of lung, Strain of muscle and tendon of front wall of thorax, Strain of muscle and tendon of back wall of thorax, Human immunodeficiency virus [HIV] disease. - Bed requested for Telemetry/MedSurg (Inpatient). - Status is Inpatient Admission. sg - Condition is Fair. - Problem is new. - Symptoms have improved. UTI on Admission? No Signatures: Dispatcher [employer] EDUT Luisana Weir RN RN mw Gay, Steven, RN RN sg Anderson, Corey, MD MD cha Davies, Jonathon, RN RN jd3 Corrections: (The following items were deleted from the chart) 02:41 02:06 Femur Right+RAD.RAD.BRZ ordered. [facility] 05:36 03:30 Hospitalization Ordered by Tracey Nieto MD for Inpatient Admission. Preliminary mw diagnosis is Abnormal findings on diagnostic imaging of lung; Strain of muscle and tendon of front wall of thorax; Strain of muscle and tendon of back wall of thorax; Human immunodeficiency virus [HIV] disease. Bed requested for Telemetry/MedSurg (Inpatient). Status is Inpatient Admission. Condition is Fair. Problem is new. Symptoms have improved. UTI on Admission? No. martin 08:38 05:36 06/23/2018 03:30 Hospitalization Ordered by Tracey Nieto MD for Inpatient sg Admission. Preliminary diagnosis is Abnormal findings on diagnostic imaging of lung; Strain of muscle and tendon of front wall of thorax; Strain of muscle and tendon of back wall of thorax; Human immunodeficiency virus [HIV] disease. Bed requested for Telemetry/MedSurg (Inpatient). Status is Inpatient Admission. Condition is Fair. Problem is new. Symptoms have improved. UTI on Admission? No. mw
[2018-06-23] MEDS ORDERED: PIPER/TAZO/NS 3.375gm 3.375 GM/100 ML BAG ONE (04:15)
[2018-06-23 04:36] LABS: Absolute Lymphocytes (CBC) 1.4 K/uL (0.7-4.9); Absolute Monocytes 0.6 K/uL (0.1-1.3); Absolute Neutrophil 3.3 K/uL (1.8-8.0); Basophils % 0.7 % (0-1.3); Hematocrit 47.2 % (39.6-49.0); Lymphocytes % 25.8 % (15.3-44.8); MPV 7.7 fL (7.6-11.3); Monocytes % 11.4 % (3.3-12.3); RBC Red Blood Cell Count 5.93 M/uL (4.33-5.43)
[2018-06-23 04:46] LABS: Protime INR 0.96
[2018-06-23] MEDS ORDERED: ONDANSETRON 4 MG/2 ML VIAL IV PRN (05:32)
[2018-06-23 05:59] LABS: ALT/SGPT 30 U/L (12-78); AST/SGOT 25 U/L (15-37); Albumin 3.2 g/dL (3.4-5.0); Alkaline Phosphatase 75 U/L (45-117); BUN Blood Urea Nitrogen 17 mg/dL (7-18); Bicarbonate 26 mmol/L (21-32); Bilirubin Direct 0.2 mg/dL (0-0.2); Bilirubin Total 0.9 mg/dL (0.2-1.0); Glucose Level 101 mg/dL (74-106); Lipase 150 U/L (73-393); Magnesium 2.1 mg/dL (1.8-2.4); NT PRO-BNP 176 pg/mL (<450); Potassium 4.4 mmol/L (3.5-5.1); Sodium Level 142 mmol/L (136-145); Troponin (Emerg Dept Use Only) < 0.02 ng/mL (0.0-0.045)
[2018-06-23] MEDS: NA CHLORIDE 0.9% 1,000 ML IV SCH ×4 (06:00→23:50)
[2018-06-23] MEDS: Levofloxacin 750mg IV 750 MG/150 ML BAG IV SCH (06:00)
[2018-06-23 06:24] VITALS: BMI 21.1
[2018-06-23] MEDS ORDERED: PNEUMOCOCCAL VACCINE 0.5 ML IMVAC ONE (08:00)
--- NOTE | 2018-06-23 08:17 | EKG ---
Test Date: 2018-06-23 Test Time: 02:46:14 Architectural Engineering Teacher: KATELYN MEASUREMENT RESULTS: Intervals: Rate: 60 FL: 184 QRSD: 82 QT: 398 QTc: 398 [place]: P: 66 FL: 184 QRS: 76 T: 75 INTERPRETIVE STATEMENTS: Normal sinus rhythm Minimal voltage criteria for LVH, may be normal variant Borderline ECG Compared to ECG 05/27/2018 15:19:10 Left ventricular hypertrophy now present Ventricular premature complex(es) no longer present Electronically Signed On 06-23-18 07:50:09 CDT by Maurice Martin
--- NOTE | 2018-06-23 08:19 | RAD REPORT ---
EXAM DESCRIPTION: CT - Angio Aorta For Dissection - 06/23/2018 7:05 am CLINICAL HISTORY: Chest pain radiating to the back. Dissection;Abdominal distention COMPARISON: CTANGIO AORTA FOR DISSECTION dated 12/21/2014; Abdomen Pelvis W Contrast dated 04/16/2018 TECHNIQUE: CT angiography of the aorta was performed with MIPs. All CT scans are performed using dose optimization technique as appropriate and may include automated exposure control or mA/KV adjustment according to patient size. FINDINGS: A left aortic arch is present with normal branching pattern of the great vessels.No acute aortic finding is seen such as aneurysm, penetrating ulcer or dissection. The celiac axis, SMA, MERCEDES and renal arteries are pain with mild atherosclerotic plaquing noted. No evidence of pulmonary embolism. Emphysematous changes are present with chronic right base pleural calcification again seen, unchanged . The liver demonstrates no focal mass or biliary dilatation.The spleen, pancreas, adrenal glands are w ithin normal limits for arterial phase imaging. Several cysts are present in both kidneys. In addition, a 3.4 x 3.5 cm mass is present mid-pole left kidney with areas of internal post-contrast enhancement noted. No bowel obstruction, free fluid or abscess.No pathologic enlarged lymphadenopathy identified. Prominent lower lumbar degenerative changes are present. IMPRESSION: No acute aortic finding is demonstrated.COPD. 3.4 x 3.5 cm mass is present mid-pole left kidney with areas of internal enhancement noted, most comp atible with neoplasia.
--- NOTE | 2018-06-23 08:22 | RAD REPORT ---
EXAM DESCRIPTION: RAD - Chest Single View - 06/23/2018 2:48 am CLINICAL HISTORY: CHEST PAIN Chest pain. COMPARISON: Chest Single View dated 05/27/2018; Chest Single View dated 05/23/2018; Chest Single View dated 04/16/2018; Chest Single View dated 03/13/2018 FINDINGS: Portable technique limits examination quality. Chronic right inferior pleural and parenchymal opacity is stable. Reduced right lung volume is presen t relative to the left. The lungs are emphysematous. The heart is normal in size. Tortuous thoracic a meño is seen. IMPRESSION: No acute intrathoracic process suspected.
--- NOTE | 2018-06-23 08:23 | RAD REPORT ---
EXAM DESCRIPTION: RAD - Pelvis - 06/23/2018 2:47 am CLINICAL HISTORY: PAIN COMPARISON: Pelvis dated 02/06/2018 FINDINGS: Degenerative changes are present involving the left hip. Prominent lumbar degenerative martin nges are also seen. Right total hip arthroplasty evident. No acute fracture seen.
--- NOTE | 2018-06-23 09:01 | RAD REPORT ---
EXAM DESCRIPTION: RAD - Femur Left - 06/23/2018 2:46 am CLINICAL HISTORY: PAIN COMPARISON: No comparisons FINDINGS: Prominent degenerative changes present in the left hip. Significant degenerative change al so seen in the left knee medial joint compartment and patellofemoral joint. Subtle lucency is seen in the lateral aspect of the patella, incompletely assessed. The mild soft tissue swelling seen superio r to the patella as well. Dedicated knee radiographs could be obtained if further assessment of this region is needed clinically.
[2018-06-23] MEDS: ENOXAPARIN 40 MG/0.4 ML SQ SCH (10:26)
[2018-06-23] MEDS: ACETAMINOPHEN 500 MG TAB PO PRN (10:39)
[2018-06-23] MEDS: MORPHINE 4 MG/ML SYR IV PRN ×2 (13:43→17:48)
--- NOTE | 2018-06-23 20:05 | P.HP ---
Certification for Inpatient Patient admitted to: Observation With expected LOS: <2 Midnights Patient will require the following post-hospital care: None Practitioner: I am a practitioner with admitting privileges, knowledge of patient current condition, hospital course, and medical plan of care. Services: Services provided to patient in accordance with Admission requirements found in Title 42 Section 412.3 of the Code of Federal Regulations Patient History Date of Service: 06/23/18 Reason for admission: pneumonia/ right lower lobe opacity on x-ray History of Present Illness: Patient is a 82-year-old gentleman who came into the hospital with generalized weakness and being lethargic. He states he just did not feel well. He came to the emergency room for further evaluation. In the emergency room, his workup revealed a right lower lobe infiltrate. This a Passy has been seen on prior x-rays. A CT aortic dissection was ordered as well. Patient lives at the [facility]. There is a history of questionable immunodeficiency. Patient really is not a good historian and he does not recall any of his prior medical issues. Patient has had some weight loss and he does not have an appetite. He will be admitted for further evaluation. Allergies No Known Drug Allergies Allergy (Verified 10/10/14 10:02) Unknown Home Medications: NK [No Home Meds] 06/23/18 - Past Medical/Surgical History Has patient received pneumonia vaccine in the past: No Diabetic: No -: Hypertension -: Alcohol use -: Colon cancer -: Cholecystectomy -: Partial Colectomy -: hip replacement -: Cataracts surgery right eye - Family History Father Family History: Reviewed- Non-Contributory - Social History Smoking Status: Current every day smoker Alcohol use: No CD- Drugs: No Caffeine use: No Review of Systems 10-point ROS is otherwise unremarkable Physical Examination - Vital Signs Temperature: 99 F Blood Pressure: 146/78 Pulse: 55 Respirations: 18 Pulse Ox (%): 98 - Physical Exam General: Alert, In no apparent distress, Oriented x3 HEENT: Atraumatic, PERRLA, Mucous membr. moist/pink, EOMI, Sclerae nonicteric Neck: Supple, 2+ carotid pulse no bruit, No LAD, Without JVD or thyroid abnormality Respiratory: Diminished, Rhonchi/gurgles Cardiovascular: Regular rate/rhythm, Normal S1 S2, No murmurs Gastrointestinal: Normal bowel sounds, Soft and benign, Non-distended, No tenderness Musculoskeletal: No clubbing, No swelling, No tenderness Integumentary: No rashes Neurological: Normal gait, Normal speech, Normal tone, Sensation intact, Cranial nerves 3-12 intact, Normal affect, Abnormal strength Lymphatics: No axilla or inguinal lymphadenopathy Assessment & Plan - Problems (Diagnosis) (1) Right lower lobe pulmonary infiltrate Current Visit: Yes Status: Acute (2) Weight loss Current Visit: Yes Status: Acute (3) Generalized weakness Current Visit: Yes Status: Acute (4) Generalized pain Current Visit: Yes Status: Acute (5) Renal cell carcinoma Current Visit: Yes Status: Acute - Plan Plan: 1. Gentle hydration 2. IV antibiotics 3. monitor electrolytes and will need physical therapy 4. urology consultation versus oncology consultation 5. poor prognosis in this is a malignancy 6. GI and DVT prophylaxis Discharge Plan: Home Plan to discharge in: 48 Hours - Advance Directives Does patient have a Living Will: No Does patient have a Durable POA for Healthcare: No - Code Status/Comfort Care Code Status Assessed: Yes Code Status: Full Code Critical Care: No Time Spent Managing PTS Care (In Minutes): 45
[2018-06-23 22:47] LABS: Urine Appearance CLEAR; Urine Bilirubin NEGATIVE (NEG); Urine Blood NEGATIVE (NEG); Urine Color YELLOW; Urine Glucose NEGATIVE (NEG); Urine Protein NEGATIVE (NEG); Urine Urobilinogen 0.2 mg/dL (0.2-1.0)
[2018-06-23 22:59] LABS: Urine Microscopic Reflex NO UMIC
[2018-06-24] MEDS: ACETAMINOPHEN 500 MG TAB PO PRN (02:42)
[2018-06-24] MEDS: MORPHINE 4 MG/ML SYR IV PRN (02:52)
[2018-06-24 03:31] VITALS: O2SAT 98
[2018-06-24] MEDS: Levofloxacin 750mg IV 750 MG/150 ML BAG IV SCH (05:00)
[2018-06-24 07:52] LABS: Absolute Lymphocytes (CBC) 1.1 K/uL (0.7-4.9); Absolute Monocytes 0.4 K/uL (0.1-1.3); Basophils % 0.8 % (0-1.3); Eosinophils % 2.8 % (0-4.4); Hematocrit 43.9 % (39.6-49.0); Lymphocytes % 23.9 % (15.3-44.8); MPV 7.6 fL (7.6-11.3); Monocytes % 8.7 % (3.3-12.3); RBC Red Blood Cell Count 5.48 M/uL (4.33-5.43)
[2018-06-24 08:09] LABS: Albumin 2.9 g/dL (3.4-5.0); Bilirubin Total 0.4 mg/dL (0.2-1.0); Magnesium 2.1 mg/dL (1.8-2.4); Potassium 4.8 mmol/L (3.5-5.1); Protein, Total 6.6 g/dL (6.4-8.2)
[2018-06-24] MEDS: NA CHLORIDE 0.9% 1,000 ML IV SCH (08:12)
[2018-06-24] MEDS: ENOXAPARIN 40 MG/0.4 ML SQ SCH (08:12)
[2018-06-24] MEDS ORDERED: LOSARTAN POTASSIUM 50 MG TABLET PO SCH (09:00)
[2018-06-24 10:15] VITALS: BP 158/83; TEMP 97
[2018-06-27 14:33] LABS: HIV AG/AB 4TH GEN Non-reactive (Non-reactive)
== END 2018-06-24 10:48 | disposition home or self-care (01) ==
LOC: ER 01:54 → INTOOBSV 04:04 → ERHOLD 04:04 → 2ND 09:01
PROVIDERS: ADMIT Hospitalist; ATTEND Hospitalist
DX: R91.8 Other nonspecific abnormal finding of lung field (principal); R53.1 Weakness; R63.4 Abnormal weight loss; C64.9 Malignant neoplasm of unspecified kidney, except renal pelvis; F17.210 Nicotine dependence, cigarettes, uncomplicated
CPT/HCPCS: 96365; 96361; 93005; 87040 ×2; 85025 ×2; 80048; 36415 ×2; 80320; 83735 ×2; 80329 ×2; 84100; 85610; 80061; 80076; 80307 ×8; 83605; 85730; 81003 ×2; 84484; 83690; 80053; 84145; 87389; 83880; 71275; 74175; 71045; 72170; 73552; 94760 ×2; 96375; 99285; Q9967; J1650 ×2; J2543; J2270 ×2; J7030 ×3; J2405; G0378 ×2

== ENCOUNTER 2018-06-25 10:08 | Emergency (ER) | payer OTHER ==
--- NOTE | 2018-06-25 10:20 | ER ---
Nurse's Notes [facility] Name: Deacon Howe Jr Age: 82 yrs Sex: Male : 1935 Arrival Date: 06/25/2018 Time: 10:09 Bed 15 Private MD: Diagnosis: Chronic pain;Right knee pain;Right shoulder pain Presentation: 06/25 10:10 Presenting complaint: EMS states: C/O pain all over, chronic pain, pt states "I'm here [facility] for the same thing, pain all over.". Transition of care: patient was not received from another setting of care. Onset of symptoms is unknown. Risk Assessment: Do you want to hurt yourself or someone else? Patient reports no desire to harm self or others. Initial Sepsis Screen: Does the patient meet any 2 criteria? No. Patient's initial sepsis screen is negative. Does the patient have a suspected source of infection? No. Patient's initial sepsis screen is negative. Care prior to arrival: None. 10:10 Method Of Arrival: EMS: [facility] 7 10:10 Acuity: ALIN 5 jl7 Triage Assessment: 10:15 General: Appears in no apparent distress. uncomfortable, Behavior is calm, cooperative, jl7 appropriate for age. Pain: Complains of pain in all over. Neuro: Level of Consciousness is awake, alert, obeys commands, Oriented to person, place, time, situation. Cardiovascular: Patient's skin is warm and dry. Respiratory: Airway is patent Respiratory effort is even, unlabored, Respiratory pattern is regular, symmetrical. Derm: Skin is pink, warm \\T\\ dry. Musculoskeletal: Range of motion: intact in all extremities. Historical: - Allergies: 10:15 NKDA; jl7 - PMHx: 10:15 colon cancer; Hepatitis; HIV; Hypertension; Chronic pain; jl7 - Immunization history:: Adult Immunizations unknown. - Social history:: Smoking status: Patient uses tobacco products, smokes one-half pack cigarettes per day. - Ebola Screening: : No symptoms or risks identified at this time. Screenin:18 Abuse screen: Denies threats or abuse. Denies injuries from another. Nutritional jl7 screening: No deficits noted. Tuberculosis screening: No symptoms or risk factors identified. Fall Risk None identified. Assessment: 10:18 General: See triage assessment. jl7 Vital Signs: 10:15 BP 154 / 74; Pulse 78; Resp 16 S; Temp 97.6(O); Pulse Ox 97% on R/A; Pain 10/10; jl7 ED Course: 10:09 Patient arrived in ED. ss 10:10 Skye Gore, RN is Primary Nurse. jl7 10:12 Shalom Zapata MD is Attending Physician. ps1 10:12 Triage completed. jl7 10:15 Arm band placed on right wrist. jl7 10:18 Iron Medina MD is Referral Physician. ps1 10:18 Patient has correct armband on for positive identification. Bed in low position. Call [facility] light in reach. Side rails up X 1. Pulse ox on. NIBP on. 10:18 No provider procedures requiring assistance completed. jl7 10:30 Patient did not have IV access during this emergency room visit. jl7 Administered Medications: No medications were administered Outcome: 10:19 Discharge ordered by MD. ps1 10:30 Discharged to home ambulatory. jl7 10:30 Condition: stable 10:30 Discharge instructions given to patient, Instructed on discharge instructions, follow up and referral plans. medication usage, Demonstrated understanding of instructions, follow-up care, medications, Prescriptions given X 2. 10:31 Patient left the ED. 7 Signatures: Tea Jo RN RN Skye Gore, MARYANNE RN [facility] Shalom Zapata MD MD ps1
--- NOTE | 2018-06-25 10:20 | EDPHYS ---
Physician Documentation [facility] Name: Deacon Howe Jr Age: 82 yrs Sex: Male : 1935 Arrival Date: 06/25/2018 Time: 10:09 Bed 15 Private MD: ED Physician Shalom Zapata HPI: 06/25 10:12 This 82 yrs old Black Male presents to ER via EMS with complaints of Pain All Over. ps1 10:12 patient seen and evaluated for same recently. Patient has no new injuries or falls. ps1 Patient did not follow up with PCP. Pain describes pain as knee pain and right shoulder pain that is the same as previous evaluations. States that he did not get his discharge instructions so he did not know where to go. . Historical: - Allergies: 10:15 NKDA; jl7 - PMHx: 10:15 colon cancer; Hepatitis; HIV; Hypertension; Chronic pain; jl7 - Immunization history:: Adult Immunizations unknown. - Social history:: Smoking status: Patient uses tobacco products, smokes one-half pack cigarettes per day. - Ebola Screening: : No symptoms or risks identified at this time. ROS: 10:12 Constitutional: Negative for fever, chills, and weight loss, Eyes: Negative for injury, ps1 pain, redness, and discharge, Cardiovascular: Negative for chest pain, palpitations, and edema, Respiratory: Negative for shortness of breath, cough, wheezing, and pleuritic chest pain, Abdomen/GI: Negative for abdominal pain, nausea, vomiting, diarrhea, and constipation, Skin: Negative for injury, rash, and discoloration, Neuro: Negative for headache, weakness, numbness, tingling, and seizure. 10:12 MS/extremity: Positive for pain, of the anterior aspect of right shoulder, and right knee. Exam: 10:12 Constitutional: This is a well developed, well nourished patient who is awake, alert, ps1 and in no acute distress. Head/Face: Normocephalic, atraumatic. Eyes: Pupils equal round and reactive to light, extra-ocular motions intact. Lids and lashes normal. Conjunctiva and sclera are non-icteric and not injected. Chest/axilla: Normal chest wall appearance and motion. Nontender with no deformity. No lesions are appreciated. Cardiovascular: Regular rate and rhythm. No gallops, murmurs, or rubs. Normal PMI, no JVD. No pulse deficits. Respiratory: Lungs have equal breath sounds bilaterally, clear to auscultation and percussion. No rales, rhonchi or wheezes noted. No increased work of breathing, no retractions or nasal flaring. Abdomen/GI: Soft, non-tender, with normal bowel sounds. No distension or tympany. No guarding or rebound. No evidence of tenderness throughout. 10:12 Musculoskeletal/extremity: Extremities: grossly normal except: noted in the right knee: pain, There is no evidence of deformity, ecchymosis, erythema, noted in the anterior aspect of right shoulder: pain, no evidence of decreased ROM, deformity, ecchymosis, erythema, laceration, pain. Vital Signs: 10:15 BP 154 / 74; Pulse 78; Resp 16 S; Temp 97.6(O); Pulse Ox 97% on R/A; Pain 10/10; jl7 MDM: 10:17 Data reviewed: vital signs, nurses notes, and as a result, I will discharge patient, ps1 patient has no new medical complaints other than history of pain that has been previously seen and evaluated. Patient referred to Pain management. . 10:19 Patient medically screened. ps1 Administered Medications: No medications were administered Disposition: 06/25/18 10:19 Discharged to Home. Impression: Chronic pain, Right knee pain, Right shoulder pain. - Condition is Stable. - Discharge Instructions: Musculoskeletal Pain. - Prescriptions for Anaprox DS 550 mg Oral Tablet - take 1 tablet by ORAL route every 12 hours As needed; 20 tablet. Robaxin 500 mg Oral Tablet - take 2 tablet by ORAL route every 6 hours As needed; 40 tablet. - Medication Reconciliation Form, Thank You Letter, Antibiotic Education, Prescription Opioid Use form. - Follow up: Iron Medina MD; When: Upon discharge from the Emergency Department. - Problem is chronic. - Symptoms are unchanged. Signatures: Skye Gore RN RN jl7 Shalom Zapata MD MD ps1 Corrections: (The following items were deleted from the chart) 10:31 10:19 06/25/2018 10:19 Discharged to Home. Impression: Chronic pain; Right knee pain; jl7 Right shoulder pain. Condition is Stable. Forms are Medication Reconciliation Form, Thank You Letter, Antibiotic Education, Prescription Opioid Use. Follow up: Iron Medina; When: Upon discharge from the Emergency Department. Problem is chronic. Symptoms are unchanged. ps1
[2018-06-25 10:36] VITALS: BP 154/74; TEMP 97.6; O2SAT 97
== END 2018-06-25 10:31 | disposition home or self-care (01) ==
LOC: ER 10:08
DX: G89.29 Other chronic pain (principal); M25.561 Pain in right knee; M25.511 Pain in right shoulder
CPT/HCPCS: 99283

== ENCOUNTER 2019-04-08 10:41 | Emergency (ER) | payer OTHER ==
[2019-04-08] MEDS ORDERED: TRAMADOL HCL 50 MG TAB ONE (11:30)
[2019-04-08] MEDS ORDERED: BENZONATATE 100 MG CAP PO ONE (11:31)
[2019-04-08 11:32] LABS: Absolute Lymphocytes (CBC) 0.9 K/uL (0.7-4.9); Basophils % 0.8 % (0-1.3); Hematocrit 47.9 % (39.6-49.0); Lymphocytes % 16.2 % (15.3-44.8); MPV 7.7 fL (7.6-11.3); RBC Red Blood Cell Count 6.07 M/uL (4.33-5.43)
[2019-04-08 11:46] LABS: Potassium 4.6 mmol/L (3.5-5.1)
--- NOTE | 2019-04-08 11:51 | RAD REPORT ---
EXAM DESCRIPTION: RAD - Chest Single View - 04/08/2019 11:29 am CLINICAL HISTORY: right flank pain Chest pain. COMPARISON: Chest Single View dated 06/23/2018; Chest Single View dated 05/27/2018; Chest Single View dated 05/23/2018; Chest Single View dated 04/16/2018 FINDINGS: Portable technique limits examination quality. Chronic triangle-shaped right lateral pulmonary opacity is noted, unchanged. The left lung is clear. The heart is normal in size. Tortuous thoracic aorta.
[2019-04-08 12:47] LABS: Blood Morphology Comment NOT SEEN (NOT SEEN); Platelet Estimate ADEQ; Urine White Blood Cell Casts OK
--- NOTE | 2019-04-08 13:01 | EDPHYS ---
Physician Documentation [facility] Name: Deacon Howe Jr Age: 83 yrs Sex: Male : 1935 Arrival Date: 04/08/2019 Time: 10:42 Bed 7 Private MD: ED Physician Gato Rodriguez HPI: 04/08 12:47 This 83 yrs old Black Male presents to ER via EMS with complaints of Back Pain. kdr 12:47 The patient presents with pain that is chronic, with no known mechanism of injury. The kdr symptoms are located in the right lower back and right thorax. Onset: The symptoms/episode began/occurred at an unknown time. This is chronic and recurrent pain. The pain does not radiate. Associated signs and symptoms: The patient has no apparent associated signs or symptoms, Pertinent positives: weakness, The patient states that he just doesn't feel right - he is not a good historian. The problem was sustained from unknown cause. Modifying factors: The patient symptoms are alleviated by nothing, the patient symptoms are aggravated by any movement. Severity of symptoms: At their worst the symptoms were mild, in the emergency department the symptoms are unchanged. The patient has experienced similar episodes in the past, chronically. The patient has not recently seen a physician. The patient is seen here on a routine basis and has been evaluated for this process previously. He denies any new c/o. Historical: - Allergies: 10:46 NKDA; ph - PMHx: 10:46 Chronic pain; colon cancer; Hepatitis; HIV; Hypertension; ph - Immunization history:: Adult Immunizations up to date. - Coronavirus screen:: The patient has NOT traveled to [place], [place], or [place] in the past 14 days. The patient has NOT had contact with known/suspected case of Coronavirus?. - Social history:: Smoking status: Patient reports the use of cigarette tobacco products, denies chronic smoking, but will smoke occasionally. - Ebola Screening: : No symptoms or risks identified at this time. ROS: 17:03 Constitutional: Negative for fever, chills, and weight loss, Eyes: Negative for injury, kdr pain, redness, and discharge, ENT: Negative for injury, pain, and discharge, Neck: Negative for injury, pain, and swelling, Cardiovascular: Negative for chest pain, palpitations, and edema, Respiratory: Negative for shortness of breath, cough, wheezing, and pleuritic chest pain, Abdomen/GI: Negative for abdominal pain, nausea, vomiting, diarrhea, and constipation, : Negative for injury, bleeding, discharge, and swelling, MS/Extremity: Negative for injury and deformity, Skin: Negative for injury, rash, and discoloration, Neuro: Negative for headache, weakness, numbness, tingling, and seizure activity. Psych: Negative for depression, anxiety, suicide ideation, homicidal ideation, and hallucinations, Allergy/Immunology: Negative for hives, rash, and allergies, Endocrine: Negative for neck swelling, polydipsia, polyuria, polyphagia, and marked weight changes, Hematologic/Lymphatic: Negative for swollen nodes, abnormal bleeding, and unusual bruising. 17:03 Back: Positive for pain with movement, Negative for decreased range of motion, pain at rest, radiated pain, acute changes. Exam: 17:03 Constitutional: This is a well developed, well nourished patient who is awake, alert, kdr and in no acute distress. Head/Face: Normocephalic, atraumatic. Eyes: Pupils equal round and reactive to light, extra-ocular motions intact. Lids and lashes normal. Conjunctiva and sclera are non-icteric and not injected. Cornea within normal limits. Periorbital areas with no swelling, redness, or edema. Neck: Trachea midline, no thyromegaly or masses palpated, and no cervical lymphadenopathy. Supple, full range of motion without nuchal rigidity, or vertebral point tenderness. No Meningismus. Chest/axilla: Normal chest wall appearance and motion. Nontender with no deformity. No lesions are appreciated. Cardiovascular: Regular rate and rhythm with a normal S1 and S2. No gallops, murmurs, or rubs. Normal PMI, no JVD. No pulse deficits. Respiratory: Lungs have equal breath sounds bilaterally, clear to auscultation and percussion. No rales, rhonchi or wheezes noted. No increased work of breathing, no retractions or nasal flaring. Abdomen/GI: Soft, non-tender, with normal bowel sounds. No distension or tympany. No guarding or rebound. No evidence of tenderness throughout. Back: No spinal tenderness. No costovertebral tenderness. Full range of motion. Skin: Warm, dry with normal turgor. Normal color with no rashes, no lesions, and no evidence of cellulitis. MS/ Extremity: Pulses equal, no cyanosis. Neurovascular intact. Full, normal range of motion. Neuro: Awake and alert, GCS 15, oriented to person, place, time, and situation. Cranial nerves II-XII grossly intact. Motor strength 5/5 in all extremities. Sensory grossly intact. Cerebellar exam normal. Normal gait. Psych: Awake, alert, with orientation to person, place and time. Behavior, mood, and affect are within normal limits. Vital Signs: 10:45 Pulse 76; Resp 18; Temp 98.0; Pulse Ox 98% on R/A; ph 10:47 BP 118 / 69; ph 12:00 BP 120 / 78; Pulse 74; Resp 18; Pulse Ox 98% on R/A; ph 13:00 BP 115 / 76; Pulse 75; Resp 18; Temp 97.8; Pulse Ox 99% on R/A; ph MDM: 13:01 Patient medically screened. kdr 17:03 Data reviewed: vital signs, nurses notes, lab test result(s), radiologic studies. kdr Counseling: I had a detailed discussion with the patient and/or guardian regarding: the historical points, exam findings, and any diagnostic results supporting the discharge/admit diagnosis, lab results, radiology results, the need for outpatient follow up. Special discussion: I discussed with the patient/guardian in detail that at this point there is no indication for admission to the hospital. It is understood, however, that if the symptoms persist or worsen the patient needs to return immediately for re-evaluation. 04/08 11:13 Order name: CBC with Diff; Complete Time: 13:05 [facility] 04/08 11:13 Order name: Chem 7; Complete Time: 12:46 [facility] 04/08 11:13 Order name: CXR XRAY; Complete Time: 12:46 [facility] 04/08 12:47 Order name: CBC Smear Scan; Complete Time: 13:05 EDMS Administered Medications: 11:30 Drug: Tessalon Perle 200 mg Route: PO; ph 12:00 Follow up: Response: No adverse reaction ph 11:30 Drug: traMADol 50 mg Route: PO; ph 12:00 Follow up: Response: No adverse reaction; Pain is decreased; RASS: Alert and Calm (0) ph Disposition: 04/08/19 13:01 Discharged to Home. Impression: Flank pain. - Condition is Stable. - Discharge Instructions: Flank Pain, [id number]. - Medication Reconciliation Form, Thank You Letter form. - Follow up: Private Physician; When: 2 - 3 days; Reason: If symptoms return, Further diagnostic work-up, Recheck today's complaints, Continuance of care, Re-evaluation by your physician. - Problem is an ongoing problem. - Symptoms are unchanged. Signatures: Dispatcher [employer] EDGato Tejeda MD MD kdr Hall, Patricia RN RN Skye Gore RN RN jl7 Corrections: (The following items were deleted from the chart) 13:13 13:01 04/08/2019 13:01 Discharged to Home. Impression: Flank pain. Condition is Stable. jl7 Forms are Medication Reconciliation Form, Thank You Letter, Antibiotic Education, Prescription Opioid Use. Follow up: Private Physician; When: 2 - 3 days; Reason: If symptoms return, Further diagnostic work-up, Recheck today's complaints, Continuance of care, Re-evaluation by your physician. Problem is an ongoing problem. Symptoms are unchanged. kdr
--- NOTE | 2019-04-08 13:01 | ER ---
Nurse's Notes [facility] Name: Deacon Howe Jr Age: 83 yrs Sex: Male : 1935 Arrival Date: 04/08/2019 Time: 10:42 Bed 7 Private MD: Diagnosis: Flank pain Presentation: 04/08 10:43 Presenting complaint: EMS states: Back pain that began this morning, denies fall or ph known injury. Transition of care: patient was not received from another setting of care. Onset of symptoms was April 08, 2019. Risk Assessment: Do you want to hurt yourself or someone else? Patient reports no desire to harm self or others. Initial Sepsis Screen: Does the patient meet any 2 criteria? No. Patient's initial sepsis screen is negative. Does the patient have a suspected source of infection? No. Patient's initial sepsis screen is negative. Care prior to arrival: None. 10:43 Method Of Arrival: EMS: [facility] 10:43 Acuity: ALIN 4 ph Triage Assessment: 10:48 General: Appears in no apparent distress. comfortable, slender, Behavior is calm, ph cooperative, appropriate for age, Denies fever, feeling ill. Pain: Complains of pain in right mid back and right low back Pain radiates to right side/flank. Neuro: Level of Consciousness is awake, alert, obeys commands, Oriented to person, place, time, situation. Cardiovascular: Capillary refill < 3 seconds in bilateral fingers Patient's skin is warm and dry. Respiratory: Reports cough that is Airway is patent Respiratory effort is even, unlabored, Respiratory pattern is regular, symmetrical, Denies shortness of breath. GI: No signs and/or symptoms were reported involving the gastrointestinal system. Derm: Skin is intact, is healthy with good turgor, Skin is pink, warm \T\ dry. Musculoskeletal: Circulation, motion, and sensation intact. Range of motion: intact in all extremities. Historical: - Allergies: 10:46 NKDA; ph - PMHx: 10:46 Chronic pain; colon cancer; Hepatitis; HIV; Hypertension; ph - Immunization history:: Adult Immunizations up to date. - Coronavirus screen:: The patient has NOT traveled to [place], [place], or [place] in the past 14 days. The patient has NOT had contact with known/suspected case of Coronavirus?. - Social history:: Smoking status: Patient reports the use of cigarette tobacco products, denies chronic smoking, but will smoke occasionally. - Ebola Screening: : No symptoms or risks identified at this time. Screenin:49 Abuse screen: Denies threats or abuse. Denies injuries from another. Nutritional ph screening: No deficits noted. Tuberculosis screening: No symptoms or risk factors identified. Fall Risk None identified. Assessment: 11:00 General: No change from previously documented assessment, SEE TRIAGE NOTE. ph 12:00 Reassessment: Patient appears in no apparent distress at this time. Patient and/or ph family updated on plan of care and expected duration. Pain level reassessed. Patient is alert, oriented x 3, equal unlabored respirations, skin warm/dry/pink. Vital Signs: 10:45 Pulse 76; Resp 18; Temp 98.0; Pulse Ox 98% on R/A; ph 10:47 BP 118 / 69; ph 12:00 BP 120 / 78; Pulse 74; Resp 18; Pulse Ox 98% on R/A; ph 13:00 BP 115 / 76; Pulse 75; Resp 18; Temp 97.8; Pulse Ox 99% on R/A; ph ED Course: 10:42 Patient arrived in ED. ph 10:45 Gato Rodriguez MD is Attending Physician. kdr 10:45 Triage completed. ph 10:48 Arm band placed on Patient placed in an exam room, on a stretcher. ph 10:50 Patient has correct armband on for positive identification. Placed in gown. Bed in low ph position. Call light in reach. Side rails up X 1. Pulse ox on. NIBP on. Door closed. Noise minimized. Warm blanket given. Pillow given. Head of bed lowered. 11:24 Callie Hernandez, MARYANNE is Primary Nurse. ph 11:28 CXR XRAY In Process Unspecified. EDMS 13:12 No provider procedures requiring assistance completed. Patient did not have IV access jl7 during this emergency room visit. Administered Medications: 11:30 Drug: Tessalon Perle 200 mg Route: PO; ph 12:00 Follow up: Response: No adverse reaction ph 11:30 Drug: traMADol 50 mg Route: PO; ph 12:00 Follow up: Response: No adverse reaction; Pain is decreased; RASS: Alert and Calm (0) ph Outcome: 13:01 Discharge ordered by . kdr 13:12 Discharged to home via wheelchair. jl7 13:12 Condition: stable 13:12 Discharge instructions given to patient, Instructed on discharge instructions, follow up and referral plans. Demonstrated understanding of instructions, follow-up care. 13:13 Patient left the ED. jl7 Signatures: Dispatcher [employer] EDMS Gato Rodriguez MD MD kdr Hall, Patricia, RN RN ph Skye Gore RN RN jl7 Corrections: (The following items were deleted from the chart) 10:47 10:45 BP 185 / 116; Pulse 76bpm; Resp 18bpm; Pulse Ox 98% RA; Temp 98.0F; ph ph 10:48 10:43 Acuity: ALIN 3 ph ph
[2019-04-08 13:33] VITALS: TEMP 98; O2SAT 98
[2019-04-08 13:34] VITALS: BP 118/69
== END 2019-04-08 13:13 | disposition home or self-care (01) ==
LOC: ER 10:41
DX: R10.31 Right lower quadrant pain (principal)
CPT/HCPCS: 36415; 71045; 80048; 85025; 99284

== ENCOUNTER 2019-04-29 07:03 | Emergency (ER) | payer OTHER ==
--- OUTSIDE RECORDS SUMMARY | 2019-04-29 07:05 | XMS REPORT ---
:1935 [facility] Address [address] [place] [address] Dr. Camacho [address] [place] [id number] Care Team Providers Name Role Phone Unavailable Unavailable Unavailable Problems This patient has no known problems. Allergies, Adverse Reactions, Alerts This patient has no known allergies or adverse reactions. Medications This patient has no known medications.
--- OUTSIDE RECORDS SUMMARY | 2019-04-29 07:06 | XMS REPORT | Summary of Care ---
:1935 Author Organization [facility] Address [address] [place] [id number] Care Team Providers Name Role Phone Pcp, Patient Does Not Have A Primary Care Provider Reason for Referral MRI/CAT Scan (STAT) Status Reason Specialty Diagnoses / Referred By Referred To Procedures Contact Contact New Request Diagnostic Diagnoses Generalized abdominal pain Josefa Benitez Radiology Procedures CT ABDOMEN PELVIS WO CONTRAST CT ABDOMEN PELVIS W CONTRAST J, DO [address] [place] [address] Radiology Services (STAT) Status Reason Specialty Diagnoses / Referred By Referred To Procedures Contact Contact New Request Diagnostic Diagnoses Generalized abdominal pain Josefa Benitez Radiology Procedures Chest 1 View J, DO [address] [place] [address] Reason for Visit Reason Comments Vomiting Chest Pain Auth/Cert Status Reason Specialty Diagnoses / Referred By Referred To Procedures Contact Contact [facility] [address] [place] [address] [place] [address] Encounter Details Date Type Department Care Team Description 04/13/2019 Emergency [facility]-Emergency Josefa Benitez, Generalized abdominal Department DO pain (Primary Dx) [address] [facility] [address] [place] [id number] Allergies No Known Allergiesdocumented as of this encounter (statuses as of 04/13/2019) Medications Medication Sig Dispensed Refills Start Date End Date Status artificial Place 2 Drops in 1 Bottle 0 11/06/2013 Active tears,hypromellose, both eyes 4 (four) (ISOPTO-TEARS) 0.5 % times daily. ophthalmic drops cephALEXin (KEFLEX) Take 1 Cap by 40 Cap 0 11/06/2013 Active 500 mg capsule mouth 4 (four) times daily. HYDROcodone-acetaminop Take 1 Tab by 156 Tab 0 11/06/2013 Active hen (NORCO 5) 5-325 mg mouth every 4 tablet (four) hours as needed for Pain unrelieved by non-narcotic analgesics. ibuprofen (MOTRIN) 600 Take 1 Tab by 56 Tab 0 11/06/2013 Active mg tablet mouth every 6 (six) hours as needed for Pain (scale 1-3) or Pain (scale 4-6). acetaminophen-codeine Take 1 Tab by 30 Tab 2 12/29/2013 Active (TYLENOL #3) 300-30 mg mouth every 4 tablet (four) hours as needed for Pain (scale 4-6). docusate (COLACE) 100 Take 1 Cap by 30 Cap 2 12/29/2013 Active mg capsule mouth daily. levETIRAcetam (KEPPRA) Take 1 Tab by 30 Tab 3 12/29/2013 Active 500 mg tablet mouth 2 (two) times daily. ondansetron (ZOFRAN Take 1 tablet by 14 tablet 0 04/13/2019 Active ODT) 4 mg mouth every 8 disintegrating (eight) hours as tabletIndications: needed for Nausea Generalized abdominal and Vomiting pain (N/V). documented as of this encounter (statuses as of 04/13/2019) Active Problems Problem Noted Date Head injury, acute, initial encounter 12/27/2013 Skull fracture 10/31/2013 Overview: open Subarachnoid hemorrhage following injury with open intracranial wound 2013 Orbital wall fracture 10/31/2013 Zygomatic fracture 10/31/2013 Ulna fracture, left, closed, initial encounter 10/31/2013 Traumatic brain injury 10/31/2013 documented as of this encounter (statuses as of 04/13/2019) Social History Tobacco Use Types Packs/Day Years Used Date Current Every Day Smoker Cigars 0.5 60 Started: 10/13/1953 Smokeless Tobacco: Never Used Alcohol Use Drinks/Week oz/Week Comments Yes 21 Standard drinks or equivalent 17.5 Sex Assigned at Date Recorded Not on file Job Start Date Occupation Industry Not on file Not on file Not on file Travel History Travel Start Travel End No recent travel history available. documented as of this encounter Last Filed Vital Signs Vital Sign Reading Time Taken Comments Blood Pressure 123/70 04/13/2019 1:00 PM RESIDENT ASSOCIATE Pulse 81 04/13/2019 1:00 PM RESIDENT ASSOCIATE Temperature 36.6 C (97.9 F) 04/13/2019 9:48 AM RESIDENT ASSOCIATE Respiratory Rate 15 04/13/2019 1:00 PM RESIDENT ASSOCIATE Oxygen Saturation 95% 04/13/2019 1:00 PM RESIDENT ASSOCIATE Inhaled Oxygen Concentration - - Weight 72.6 kg (160 lb) 04/13/2019 9:48 AM RESIDENT ASSOCIATE Height - - Body Mass Index 20 12/27/2013 8:35 PM CDT documented in this encounter Discharge Instructions Josefa Shearer, - 04/13/2019DIAGNOSIS 1. Vomiting 2. Abdominal Pain NO LIFE-THREATENING FINDINGS ON TODAY'S EXAM. PROCEDURES IN THE ER TODAY: Blood work Urine test CT abdomen/pelvis MEDICATIONS ADMINISTERED IN THE ER TODAY: Zofran IV fluids YOUR PRESCRIPTIONS AND [id number] MEDICATION RECOMMENDATIONS: Zofran by mouth every 8 hours as needed for nausea. SPECIAL CARE INSTRUCTIONS: None FOLLOW-UP RECOMMENDATIONS: RECOMMEND FOLLOW-UP WITH A PRIMARY CARE PROVIDER OR SPECIALIST IN 2-5 DAYS, ESPECIALLY IF NO IMPROVEMENT IN SYMPTOMS. TO FOLLOW-UP WITHIN THE [facility], TRY THESE OPTIONS (CLINIC APPOINTMENTS AVAILABLE ON IVDE-UK-GTQH BASIS): 1. SCHEDULE AN APPOINTMENT ONLINE AT [email or web address] 2. OR CALL THE [facility] AT OR 3. OR CALL YOUR [facility] PHYSICIAN'S OFFICE DIRECTLY IF YOU ARE ALREADY AN ESTABLISHED [facility] PATIENT. OR, YOU MAY FOLLOW-UP WITH A PROVIDER OF YOUR CHOICE, SUCH : 1. A PHYSICIAN OF YOUR CHOICE 2. [facility] AND [facility], . LOCATIONS IN [place] AND [place] 3. [facility], [address], [place]; RETURN TO ER FOR WORSENING OF SYMPTOMS. AttachmentsThe following attachments cannot be sent through Care Everywhere.Abdominal Pain, Adult (Indian)Diet, Jack (Adult) (Indian)Vomiting (Adult) (Indian)documented in this encounter Plan of Treatment Name Type Priority Associated Diagnoses Order Schedule Urinalysis LAB STAT Generalized abdominal pain STAT for 1 Occurrences starting 04/13/2019 until 04/13/2019 Health Maintenance Due Date Last Done Comments DTaP,Tdap,and Td Vaccines (1 - Tdap) [birth year]03/1954 Zoster Recombinant Vaccine (SHINGRIX) (1 of 2) 1986 Medicare Wellness Visit 2001 PNEUMOCOCCAL VACCINES 65+ (1 of 2 - PCV13) 2001 INFLUENZA VACCINE (#1) 2018 documented as of this encounter Procedures Procedure Name Priority Date/Time Associated Diagnosis Comments CT ABDOMEN PELVIS WO STAT 04/13/2019 1:14 Generalized Results for this CONTRAST PM RESIDENT ASSOCIATE abdominal pain procedure are in the results section. BASIC METABOLIC PANEL STAT 04/13/2019 11:45 Generalized Results for this (NA, K, CL, CO2, AM RESIDENT ASSOCIATE abdominal pain procedure are in GLUCOSE, BUN, the results CREATININE, CA) section. HEPATIC FUNCTION STAT 04/13/2019 11:45 Generalized Results for this PANEL (32589) AM RESIDENT ASSOCIATE abdominal pain procedure are in (ALB,T.PRO,BILI the results T,BU/BC,ALT,AST,ALK section. PHOS) TROPONIN I STAT 04/13/2019 11:45 Generalized Results for this AM RESIDENT ASSOCIATE abdominal pain procedure are in the results section. LIPASE STAT 04/13/2019 11:45 Generalized Results for this AM RESIDENT ASSOCIATE abdominal pain procedure are in the results section. XR CHEST 1 VW STAT 04/13/2019 10:27 Generalized Results for this AM RESIDENT ASSOCIATE abdominal pain procedure are in the results section. CBC WITH DIFFERENTIAL STAT 04/13/2019 10:18 Generalized Results for this AM RESIDENT ASSOCIATE abdominal pain procedure are in the results section. CBC WITH DIFFERENTIAL Routine 04/13/2019 10:18 Generalized Results for this AM RESIDENT ASSOCIATE abdominal pain procedure are in the results section. EKG-12 LEAD STAT 04/13/2019 10:00 AM RESIDENT ASSOCIATE documented in this encounter Results CT ABDOMEN PELVIS WO CONTRAST (04/13/2019 1:14 PM RESIDENT ASSOCIATE) Specimen Narrative Performed At CT Abdomen and Pelvis without contrast. PACS/VR/DOSE CLINICAL HISTORY: Acute generalized abdominal pain. TECHNIQUE: Multidetector helical CT acquisition was obtained from the lung bases to the greater trochanters without oral and IV contrast. The images were reviewed in lung, bone, and soft tissue windows. FINDINGS: Absence of intravenous contrast limits evaluation of the solid organs. Evaluation of the bowel is also limited by lack of oral contrast. No prior study available for comparison. Lower lungs: Chronic pleural disease with calcified thickened pleural changes in the lateral right lower chest and underlying lung shows chronic changes of fibrosis. Small portion of the left lung visualized appear clear. Left hemidiaphragm is elevated. Liver, Gallbladder and Spleen: S/P cholecystectomy. No gross pathology seen in the unenhanced images of the liver or spleen. Peritoneum: No free air or free fluid. No lymphadenopathy. Pancreas and Adrenals: Unremarkable pancreas and adrenal glands. Kidneys and Ureters: No visible calculi in the renal collecting systems. No hydroureter or hydronephrosis. 2 lesions are seen, 14 mm along the dorsal surface and 11 mm along the ventral surface of the interpolar right kidney, possibly small cysts. There is another 8 mm lesion in the lateral interpolar cortex of right kidney which could be also assessed. 3.5 cm cyst of the lateral surface of upper pole and another 3.5 cm is at the lower pole of the left kidney. In addition, there are 2 solid mass is suspected, 2.9 cm size along the lateral surface near the upper pole and 4.3 cm size lesion along the lateral surface of the interpolar region of left kidney. Vessels: Moderate atherosclerosis with focal ectasia of upper abdominal aorta with maximum diameter of 2.5 cm. Retroperitoneum: No abnormal fluid or lymphadenopathy. Bowel: No acute findings. Bladder and Reproductive Organs: Enlarged prostate. Bones: Right hip arthroplasty. Lumbar dextroscoliosis, old fractures of lower L2, L3 vertebral bodies with loss of 70% and 30% height. Old trauma also noted vertebral endplates of L3, L4 and L5. Disc degeneration at L1-L2, L3 and L4, L4-L5, L5-S1 levels noted with multilevel facet arthritis. Soft tissues: Unremarkable. CONCLUSION: 1. No acute intra-abdominal or pelvic abnormalities. 2. S/P cholecystectomy. 3. Multiple lesions in both kidneys, discussed above including 2 large solid mass is suspected in the left kidney. Solid masses may be further evaluated by contrast enhanced CT scan and/or ultrasound. Procedure Note [facility], Radiant Results Inft User - 04/13/2019 1:[address] Abdomen and Pelvis without contrast. CLINICAL HISTORY: Acute generalized abdominal pain. TECHNIQUE: Multidetector helical CT acquisition was obtained from the lung bases to the greater trochanters without oral and IV contrast. The images were reviewed in lung, bone, and soft tissue windows. FINDINGS: Absence of intravenous contrast limits evaluation of the solid organs. Evaluation of the bowel is also limited by lack of oral contrast. No prior study available for comparison. Lower lungs: Chronic pleural disease with calcified thickened pleural changes in the lateral right lower chest and underlying lung shows chronic changes of fibrosis. Small portion of the left lung visualized appear clear. Left hemidiaphragm is elevated. Liver, Gallbladder and Spleen: S/P cholecystectomy. No gross pathology seen in the unenhanced images of the liver or spleen. Peritoneum: No free air or free fluid. No lymphadenopathy. Pancreas and Adrenals: Unremarkable pancreas and adrenal glands. Kidneys and Ureters: No visible calculi in the renal collecting systems. No hydroureter or hydronephrosis. 2 lesions are seen, 14 mm along the dorsal surface and 11 mm along the ventral surface of the interpolar right kidney, possibly small cysts. There is another 8 mm lesion in the lateral interpolar cortex of right kidney which could be also assessed. 3.5 cm cyst of the lateral surface of upper pole and another 3.5 cm is at the lower pole of the left kidney. In addition, there are 2 solid mass is suspected, 2.9 cm size along the lateral surface near the upper pole and 4.3 cm size lesion along the lateral surface of the interpolar region of left kidney. Vessels: Moderate atherosclerosis with focal ectasia of upper abdominal aorta with maximum diameter of 2.5 cm. Retroperitoneum: No abnormal fluid or lymphadenopathy. Bowel: No acute findings. Bladder and Reproductive Organs: Enlarged prostate. Bones: Right hip arthroplasty. Lumbar dextroscoliosis, old fractures of lower L2, L3 vertebral bodies with loss of 70% and 30% height. Old trauma also noted vertebral endplates of L3, L4 and L5. Disc degeneration at L1-L2, L3 and L4, L4-L5, L5-S1 levels noted with multilevel facet arthritis. Soft tissues: Unremarkable. CONCLUSION: 1. No acute intra-abdominal or pelvic abnormalities. 2. S/P cholecystectomy. 3. Multiple lesions in both kidneys, discussed above including 2 large solid mass is suspected in the left kidney. Solid masses may be further evaluated by contrast enhanced CT scan and/or ultrasound. Performing Organization Address City/State/Zipcode Phone Number PACS/VR/DOSE Troponin I (04/13/2019 11:45 AM RESIDENT ASSOCIATE) TROPONIN I 0.015 <=0.034 ng/mL [facility] Specimen Blood - VENOUS Narrative Performed At Equal or Less than 0.034 ng/ml---Normal [facility] Note: Cardiac troponin begins to rise 3-4 hours after the onset of ischemia. Repeat in 4-6 hours if the sample was drawn within 3-4 hours of the onset of the symptom and found normal. Between 0.035 and 0.120 ng/mL--- Borderline. Questionable myocardial injury or necrosis Note: Serial measurement may be necessary to confirm or exclude the diagnosis of myocardial injury or necrosis; Clinical correlation (symptoms, EKGs, imaging studies, and others) required; Repeat in 4-6 hours if clinically indicated. Equal or Higher than 0.121 ng/mL---Abnormal. Myocardial Injury or Necrosis Likely Biotin has been reported to cause a negative bias, interpret results relative to patient's use of biotin. Performing Organization Address City/[facility] Phone Number [facility] CLIA: [id number], [address] [place] [address] Lipase Serum (04/13/2019 11:45 AM RESIDENT ASSOCIATE) LIPASE 97 0 - 220 U/L [facility] Specimen Blood - VENOUS Performing Organization Address [facility] Phone Number [facility] CLIA: [id number], [address] [place] [address] Basic Metabolic Panel (NA, K, CL, CO2, GLUCOSE, BUN, CREATININE, CA) (2019 11:45 AM RESIDENT ASSOCIATE) NA 130 (L) 135 - 145 [facility] mmol/L [facility] K 4.9 3.5 - 5.0 [facility] mmol/L [facility] CL 97 (L) 98 - 108 mmol/L [facility] CO2 TOTAL 21 (L) 23 - 31 mmol/L [facility] AGAP 12 2 - 16 [facility] BUN 31 (H) 7 - 23 mg/dL [facility] GLUCOSE 89 70 - 110 mg/dL [facility] CREATININE 1.39 (H) 0.60 - 1.25 [facility] mg/dL [facility] CALCIUM 8.9 8.6 - 10.6 [facility] mg/dL [facility] eGFR Calculation 48.9 mL/min/1.73m2 [facility] ([facility] 2001 LAB[facility]ATORY [place]) eGFR Calculation 59.3 mL/min/1.73m2 [facility] () [facility] Specimen Blood - VENOUS Narrative Performed At Association of Glomerular Filtration Rate (GFR) [facility] and Staging of Kidney Disease* + + +- + | GFR (mL/min/1.73 m2) | With Kidney Damage | Without Kidney Damage + + +- + | >90 | Stage one | Normal + + +- + | 60-89 | Stage two | Decreased GFR + + +- + | 30-59 | Stage three | Stage three + + +- + | 15-29 | Stage four | Stage four + + +- + | <15 (or dialysis) | Stage five | Stage five + + +- + *Each stage assumes the associated GFR level has been in effect for at least three months. Stages 1 to 5, with or without kidney disease, indicate chronic kidney disease. Notes: Determination of stages one and two (with eGFR >59mL/min/1.73 m2) requires estimation of kidney damage for at least three months as defined by structural or functional abnormalities of the kidney, manifested by either: Pathological abnormalities or Markers of kidney damage (including abnormalities in the composition of the blood or urine or abnormalities in imaging tests). Performing Organization Address City/State/Zipcode Phone Number [facility] CLIA: [id number], [address] [place] [address] Hepatic Function Panel (ALB, T.PRO, BILI T, BU/BC, ALT, AST, ALK PHOS) (2019 11:45 AM RESIDENT ASSOCIATE) TOTAL BILI 1.0 0.1 - 1.1 mg/dL [facility] BILI UNCON 0.8 0.1 - 1.1 mg/dL [facility] BILI CONJ 0.0 0.0 - 0.3 mg/dL [facility] T PROTEIN 7.6 6.3 - 8.2 g/dL [facility] ALBUMIN 3.9 3.5 - 5.0 g/dL [facility] ALK PHOS 89 34 - 122 U/L [facility] ALTv 22 5 - 50 U/L [facility] AST(SGOT) 49 (H) 13 - 40 U/L [facility] Specimen Blood - VENOUS Performing Organization Address City/[facility]/Zipcode Phone Number [facility] CLIA: [id number], [address] [place] [address] Chest 1 View (04/13/2019 10:27 AM RESIDENT ASSOCIATE) Specimen Narrative Performed At HISTORY: Chest pain. PACS/VR/DOSE TECHNIQUE: 2 Portable AP erect views of the chest were obtained. Comparison made with 02/02/2019 study. FINDINGS: Abnormal findings are seen in the right lower lung, likely chronic pulmonary fibrosis secondary to prior infection with pleural scarring in the vicinity. Left lung showed mild hyperinflation. Cardiac size is normal. No acute pulmonary edema or pneumothorax or pleural effusion. Thoracic aorta is elongated and tortuous. CONCLUSIONS: No signs of acute cardiopulmonary disease. Procedure Note [facility], Radiant Results Inft User - 04/13/2019 10:31 AM RESIDENT ASSOCIATE HISTORY: Chest pain. TECHNIQUE: 2 Portable AP erect views of the chest were obtained. Comparison made with 02/02/2019 study. FINDINGS: Abnormal findings are seen in the right lower lung, likely chronic pulmonary fibrosis secondary to prior infection with pleural scarring in the vicinity. Left lung showed mild hyperinflation. Cardiac size is normal. No acute pulmonary edema or pneumothorax or pleural effusion. Thoracic aorta is elongated and tortuous. CONCLUSIONS: No signs of acute cardiopulmonary disease. Performing Organization Address [facility]/Zipcode Phone Number PACS/VR/DOSE CBC WITH DIFFERENTIAL (04/13/2019 10:18 AM RESIDENT ASSOCIATE) WBC 5.10 4.20 - 10.70 [facility] 10*3/L [facility] RBC 6.63 (H) 4.26 - 5.52 [facility] 10*6/L [facility] HGB 16.6 (H) 12.2 - 16.4 [facility] g/dL [facility] HCT 51.1 (H) 38.4 - 49.3 % [facility] MCV 77.1 (L) 81.7 - 95.6 fL [facility] MCH 25.0 (L) 26.1 - 32.7 pg [facility] MCHC 32.5 31.2 - 35.0 [facility] g/dL [facility] RDW-SD 39.0 38.5 - 51.6 fL [facility] RDW-CV 15.1 12.1 - 15.4 % [facility] PLT 287 150 - 328 [facility] 10*3/L [facility] MPV 8.9 (L) 9.8 - 13.0 fL [facility] NRBC/100 WBC 0.0 0.0 - 10.0 /100 [facility] WBCs [facility] NRBC x10^3 <0.01 10*3/L [facility] GRAN MAT (NEUT) % 59.9 % [facility] IMM GRAN % 1.00 % [facility] LYMPH % 26.3 % [facility] MONO % 12.2 % [facility] EOS % 0.2 % [facility] BASO % 0.4 % [facility] GRAN MAT x10^3(ANC) 3.06 1.99 - 6.95 [facility] 10*3/uL [facility] IMM GRAN x10^3 0.05 0.00 - 0.06 [facility] 10*3/uL [facility] LYMPH x10^3 1.34 1.09 - 3.23 [facility] 10*3/uL [facility] MONO x10^3 0.62 0.36 - 1.02 [facility] 10*3/uL [facility] EOS x10^3 <0.03 (L) 0.06 - 0.53 [facility] 10*3/uL [facility] BASO x10^3 <0.03 0.01 - 0.[address]/uL [facility] Specimen Blood - VENOUS Performing Organization Address City/State/Zipcode Phone Number [facility] CLIA: [id number], [address] [place] [address] documented in this encounter Visit Diagnoses Diagnosis Generalized abdominal pain - Primary Abdominal pain, generalized documented in this encounter Administered Medications Medication Order MAR Action Action Date Dose Rate Site NaCl 0.9% (NS) bolus New Bag 04/13/2019 10:27 AM RESIDENT ASSOCIATE 1,000 mL 999 mL/hr infusion 1,000 mL at 999 mL/hr, 1,000 mL, IV Infusion, ONCE, 1 dose, Roxana 04/13/19 at 1015, RYLEY ondansetron (ZOFRAN (PF)) injection 4 mg Given 04/13/2019 10:27 AM RESIDENT ASSOCIATE 4 mg 4 mg, Slow IV Push, ONCE, 1 dose, Roxana 04/13/19 at 1115, RYLEY documented in this encounter Insurance Payer Benefit Plan / Subscriber ID Effective Phone Address Type Group Dates MEDICARE MEDICARE PART xxxxxxxxxxx 2002-Pre [phone] Medicare A & B sent [id number] LETTY FANG [phone] AAMIR RUTLEDGE xxxxxxxxx 2019-Pres [address] Medicaid HEALTHCARE - HEALTHCARE ent [id number] MANAGED MEDICAID [place], [place] documented as of this encounter"
[2019-04-29] MEDS ORDERED: MORPHINE 4 MG/ML SYR ONE (07:50)
[2019-04-29] MEDS ORDERED: NA CHLORIDE 0.9% 1,000 ML ONE (07:50)
[2019-04-29] MEDS ORDERED: ONDANSETRON 4 MG/2 ML VIAL ONE (07:50)
--- NOTE | 2019-04-29 08:19 | RAD REPORT ---
EXAM DESCRIPTION: CT - Stone Protocol - 04/29/2019 7:57 am CLINICAL HISTORY: Abdominal pain. Flank pain COMPARISON: June 2018 TECHNIQUE: Computed axial tomography of the abdomen pelvis was obtained without oral or IV contrast. Lack of IV and oral contrast limits evaluation of solid organs, bowel, and vessels. Coronal reformat reggie images were obtained and reviewed. All CT scans are performed using dose optimization technique as appropriate and may include automated exposure control or mA/KV adjustment according to patient size. FINDINGS: Calcified right pleural plaques unchanged 4.2 centimeter complex cystic left renal mass has increased in size since the prior exam in which it measured 3.4 centimeters. Bilateral renal simple cysts are unchanged. 3.1 centimeter complex cysts le ft kidney unchanged. A renal calculus is not seen. An ureteral calculus is not noted. A bladder calculus is not present. The liver, spleen, pancreas and adrenals appear grossly normal There is no evidence of diverticulitis. The appendix appears normal Rectal wall thickening is present. Cystic areas within the right acetabulum unchanged The abdominal aorta is ectatic. The prostate gland is moderately enlarged. Mild bladder distention IMPRESSION: Negative for a genitourinary calculus Enlargement of a 3.4 centimeter complex cystic left renal mass Rectal wall thickening may represent incomplete distention, inflammation or mass
[2019-04-29 08:52] LABS: Barbiturates NEGATIVE (NEGATIVE); Benzodiazepines NEGATIVE (NEGATIVE); Cocaine POSITIVE (NEGATIVE); METHAMPHETAM NEGATIVE (NEGATIVE); Methadone NEGATIVE (NEGATIVE); Opiates NEGATIVE (NEGATIVE); Phencyclidine NEGATIVE (NEGATIVE); THC Cannibis NEGATIVE (NEGATIVE)
[2019-04-29 08:53] LABS: Urine Blood NEGATIVE (NEG); Urine Glucose NEGATIVE (NEG); Urine Protein NEGATIVE (NEG); Urine Specific Gravity 1.015 (1.005-1.030); Urine pH 5.5 (5.0-7.0)
[2019-04-29 08:58] LABS: Basophils % 0.7 % (0-1.3); Hematocrit 46.3 % (39.6-49.0); MPV 7.8 fL (7.6-11.3); RBC Red Blood Cell Count 5.76 M/uL (4.33-5.43)
[2019-04-29 09:15] LABS: Albumin 3.1 g/dL (3.4-5.0); Bilirubin Direct 0.2 mg/dL (0-0.2); Bilirubin Total 0.7 mg/dL (0.2-1.0); Potassium 4.6 mmol/L (3.5-5.1)
--- NOTE | 2019-04-29 09:22 | ER ---
Nurse's Notes [facility] Name: Deacon Howe Jr Age: 83 yrs Sex: Male : 1935 Arrival Date: 04/29/2019 Time: 07:04 Bed 18 Private MD: Diagnosis: Low back pain;Cocaine abuse Presentation: 04/29 06:59 Presenting complaint: EMS states: he states the pain woke him up, just on the RIGHT tw2 oblique area, denies nvd, states last BM was this morning, states he ate good yesterday. vs stable. Transition of care: patient was not received from another setting of care. Onset of symptoms was April 29, 2019. Risk Assessment: Do you want to hurt yourself or someone else? Patient reports no desire to harm self or others. Initial Sepsis Screen: Does the patient meet any 2 criteria? No. Patient's initial sepsis screen is negative. Does the patient have a suspected source of infection? No. Patient's initial sepsis screen is negative. Care prior to arrival: None. 06:59 Method Of Arrival: EMS: [facility] tw2 06:59 Acuity: ALIN 3 tw2 Triage Assessment: 07:08 General: Appears in no apparent distress. slender, Behavior is calm, cooperative, tw2 appropriate for age. Pain: Complains of pain in anterior aspect of right lateral abdomen and posterior aspect of right lateral abdomen. GI: Patient currently denies constipation, diarrhea, intolerance of fluids, intolerance of food, nausea. Historical: - Allergies: 07:11 NKDA; tw2 - PMHx: 07:11 Chronic pain; colon cancer; Hepatitis; HIV; Hypertension; tw2 - Immunization history:: Adult Immunizations. - Coronavirus screen:: The patient has NOT traveled to [place] in the past 14 days. - Social history:: Smoking status: . - Family history:: not pertinent. - Ebola Screening: : Patient denies travel to an Ebola-affected area in the 21 days before illness onset. Screenin:14 Abuse screen: Denies threats or abuse. Nutritional screening: No deficits noted. tw2 Tuberculosis screening: No symptoms or risk factors identified. Fall Risk Secondary diagnosis (15 points) impaired mobility. Assessment: 07:15 Reassessment: provider at bedside. tw2 07:17 General: Appears in no apparent distress. Behavior is calm, cooperative, appropriate tw2 for age. Pain: Complains of pain in posterior aspect of right lateral abdomen and anterior aspect of right lateral abdomen. Neuro: Level of Consciousness is awake, alert, obeys commands, Oriented to person, place, situation. Cardiovascular: Heart tones S1 S2 Capillary refill. Respiratory: Airway is patent Respiratory effort is even, unlabored, Respiratory pattern is regular, symmetrical, Breath sounds are clear bilaterally. GI: Abdomen is flat, Bowel sounds present X 4 quads. Abdomen is tender to palpation in anterior aspect of right lateral abdomen. : No signs and/or symptoms were reported regarding the genitourinary system. EENT: No signs and/or symptoms were reported regarding the EENT system. Derm: No signs and/or symptoms reported regarding the dermatologic system. Musculoskeletal: Range of motion: intact in all extremities. 08:04 Reassessment: Patient appears in no apparent distress at this time. No changes from tw2 previously documented assessment. Patient and/or family updated on plan of care and expected duration. Pain level reassessed. Patient is alert, oriented x 3, equal unlabored respirations, skin warm/dry/pink. 09:04 Reassessment: Patient appears in no apparent distress at this time. No changes from tw2 previously documented assessment. Patient and/or family updated on plan of care and expected duration. Pain level reassessed. Patient is alert, oriented x 3, equal unlabored respirations, skin warm/dry/pink. 09:41 Reassessment: Patient appears in no apparent distress at this time. No changes from tw2 previously documented assessment. Patient and/or family updated on plan of care and expected duration. Pain level reassessed. Patient is alert, oriented x 3, equal unlabored respirations, skin warm/dry/pink. Patient states feeling better. Patient states symptoms have improved. Vital Signs: 07:07 BP 153 / 83; Pulse 63; Resp 17; Temp 98.2(TE); Pulse Ox 95% on R/A; Weight 58.97 kg tw2 (R); Height 6 ft. 2 in. (187.96 cm); Pain 8/10; 08:05 BP 142 / 86; Pulse 61; Resp 16; Pulse Ox 95% on R/A; tw2 09:05 BP 154 / 79; Pulse 52; Resp 17; Pulse Ox 99% on R/A; tw2 07:07 Body Mass Index 16.69 (58.97 kg, 187.96 cm) tw2 ED Course: 06:59 Bed in low position. Call light in reach. Side rails up X2. personnel monitor on. Pulse tw2 ox on. NIBP on. Warm blanket given. 07:04 Patient arrived in ED. tw2 07:06 Vipul Castillo MD is Attending Physician. martin 07:07 Triage completed. tw2 07:07 Arm band placed on. tw2 07:13 Juana Hanson RN is Primary Nurse. tw2 07:14 Emesis basin given. Patient pt states "i have to spit sometimes", urinal placed at tw2 bedside at this time as well. 07:57 CT completed. Patient tolerated procedure well. Patient moved back from CT. mw3 08:30 Missed attempt(s): 22 gauge in right antecubital area. Bleeding controlled, band aid tw2 applied, catheter tip intact. Missed attempt(s): 22 gauge in right forearm. Bleeding controlled, band aid applied, catheter tip intact. Inserted saline lock: 24 gauge in right ,using aseptic technique. calf, by Bhupendra Alfredo, Dr. Castillo agrees to IV in calf at this time d/t limited access. pt agreeable as well. 08:46 Inserted saline lock: 22 gauge in right upper arm, using aseptic technique. Blood ss collected. 08:53 IV discontinued, intact, bleeding controlled, No redness/swelling at site. Pressure tw2 dressing applied, right calf. 09:21 Sunday Pandey MD is Referral Physician. martin 09:41 Assist provider with bone marrow aspiration. IV discontinued, intact, bleeding tw2 controlled, No redness/swelling at site. Pressure dressing applied. Administered Medications: 08:49 Drug: NS 0.9% 500 ml Route: IV; Rate: bolus; Site: right upper arm; tw2 09:00 Follow up: IV Status: IV infiltrated; IV Intake: 200ml tw2 08:50 Drug: Zofran 4 mg {Note: RIGHT calf.} Route: IVP; Site: Other; tw2 09:26 Follow up: Response: No adverse reaction tw2 08:52 Drug: morphine 4 mg {Note: Right calf.} Route: IVP; Site: Other; tw2 09:26 Follow up: Response: No adverse reaction; Pain is decreased; RASS: Alert and Calm (0) tw2 09:26 Not Given (order for discharge): NS 0.9% 1000 ml IV at 125 ml/hr continuous tw2 Intake: 09:00 IV: 200ml; Total: 200ml. tw2 Outcome: 09:21 Discharge ordered by . martin 09:41 Discharged to home via wheelchair. tw2 09:41 Condition: stable 09:41 Discharge instructions given to patient, Instructed on discharge instructions, follow up and referral plans. no drinking with medication, no driving heavy equipment, medication usage, Demonstrated understanding of instructions, follow-up care, medications, Prescriptions given X 2. 09:43 Patient left the ED. tw2 Signatures: Vipul Castillo MD MD cha Smirch, Shelby RN RN Juana Hanson RN RN tw2 Jenna Mcgrath mw3
--- NOTE | 2019-04-29 09:23 | EDPHYS ---
Physician Documentation [facility] Name: Deacon Howe Jr Age: 83 yrs Sex: Male : 1935 Arrival Date: 04/29/2019 Time: 07:04 Bed 18 Private MD: SEBASTIÁN Physician Vipul Castillo HPI: 04/29 07:29 This 83 yrs old Black Male presents to ER via EMS with complaints of Abd Pain > 50 y/o, martin Side pain, right. 07:29 The patient complains of pain in the left low back and left mid back. Location: left martin low back and left mid back. Onset: The symptoms/episode began/occurred yesterday. Modifying factors: The symptoms are alleviated by remaining still, the symptoms are aggravated by movement. The patient presents with pain that is acute, and decreased range of motion. The symptoms are located in the left low back and left mid back. Onset: The symptoms/episode began/occurred yesterday. The pain does not radiate. Historical: - Allergies: 07:11 NKDA; tw2 - PMHx: 07:11 Chronic pain; colon cancer; Hepatitis; HIV; Hypertension; tw2 - Immunization history:: Adult Immunizations. - Coronavirus screen:: The patient has NOT traveled to [place] in the past 14 days. - Social history:: Smoking status: . - Family history:: not pertinent. - Ebola Screening: : Patient denies travel to an Ebola-affected area in the 21 days before illness onset. ROS: 07:29 Constitutional: Negative for fever, chills, and weight loss, Eyes: Negative for injury, martin pain, redness, and discharge, ENT: Negative for injury, pain, and discharge, Neck: Negative for injury, pain, and swelling, Cardiovascular: Negative for chest pain, palpitations, and edema, Respiratory: Negative for shortness of breath, cough, wheezing, and pleuritic chest pain, Abdomen/GI: Negative for abdominal pain, nausea, vomiting, diarrhea, and constipation, : Negative for injury, bleeding, discharge, and swelling, MS/Extremity: Negative for injury and deformity, Skin: Negative for injury, rash, and discoloration, Neuro: Negative for headache, weakness, numbness, tingling, and seizure, Psych: Negative for depression, anxiety, suicide ideation, homicidal ideation, and hallucinations, Allergy/Immunology: Negative for hives, rash, and allergies, Endocrine: Negative for neck swelling, polydipsia, polyuria, polyphagia, and marked weight changes, Hematologic/Lymphatic: Negative for swollen nodes, abnormal bleeding, and unusual bruising. 07:29 Back: Positive for decreased range of motion, pain at rest, pain with movement, flank pain, on the right. Exam: 07:29 Constitutional: This is a well developed, well nourished patient who is awake, alert, martin and in no acute distress. Head/Face: Normocephalic, atraumatic. Eyes: Pupils equal round and reactive to light, extra-ocular motions intact. Lids and lashes normal. Conjunctiva and sclera are non-icteric and not injected. Cornea within normal limits. Periorbital areas with no swelling, redness, or edema. ENT: Nares patent. No nasal discharge, no septal abnormalities noted. Tympanic membranes are normal and external auditory canals are clear. Oropharynx with no redness, swelling, or masses, exudates, or evidence of obstruction, uvula midline. Mucous membranes moist. Neck: Trachea midline, no thyromegaly or masses palpated, and no cervical lymphadenopathy. Supple, full range of motion without nuchal rigidity, or vertebral point tenderness. No Meningismus. Chest/axilla: Normal chest wall appearance and motion. Nontender with no deformity. No lesions are appreciated. Cardiovascular: Regular rate and rhythm with a normal S1 and S2. No gallops, murmurs, or rubs. Normal PMI, no JVD. No pulse deficits. Respiratory: Lungs have equal breath sounds bilaterally, clear to auscultation and percussion. No rales, rhonchi or wheezes noted. No increased work of breathing, no retractions or nasal flaring. Abdomen/GI: Soft, non-tender, with normal bowel sounds. No distension or tympany. No guarding or rebound. No evidence of tenderness throughout. Male : Normal genitalia with no discharge or lesions. Skin: Warm, dry with normal turgor. Normal color with no rashes, no lesions, and no evidence of cellulitis. MS/ Extremity: Pulses equal, no cyanosis. Neurovascular intact. Full, normal range of motion. Neuro: Awake and alert, GCS 15, oriented to person, place, time, and situation. Cranial nerves II-XII grossly intact. Motor strength 5/5 in all extremities. Sensory grossly intact. Cerebellar exam normal. Normal gait. Psych: Awake, alert, with orientation to person, place and time. Behavior, mood, and affect are within normal limits. 07:29 Back: pain, that is moderate, ROM is painful, normal spinal alignment noted, CVA tenderness, that is mild, vertebral tenderness, is not appreciated, muscle spasm, is appreciated in the left low back and left mid back. Vital Signs: 07:07 BP 153 / 83; Pulse 63; Resp 17; Temp 98.2(TE); Pulse Ox 95% on R/A; Weight 58.97 kg tw2 (R); Height 6 ft. 2 in. (187.96 cm); Pain 8/10; 08:05 BP 142 / 86; Pulse 61; Resp 16; Pulse Ox 95% on R/A; tw2 09:05 BP 154 / 79; Pulse 52; Resp 17; Pulse Ox 99% on R/A; tw2 07:07 Body Mass Index 16.69 (58.97 kg, 187.96 cm) tw2 MDM: 07:06 Patient medically screened. [facility] 07:32 Data reviewed: vital signs, nurses notes, lab test result(s), EKG, radiologic studies, [facility] CT scan. 04/29 07:28 Order name: Basic Metabolic Panel [facility] 04/29 07:28 Order name: CBC with Diff [facility] 04/29 07:28 Order name: Creatinine for Radiology [facility] 04/29 07:28 Order name: Hepatic Function [facility] 04/29 07:28 Order name: Lipase [facility] 04/29 07:28 Order name: UDS [facility] 04/29 08:44 Order name: Urine Dipstick--Ancillary (enter results) 04/29 08:53 Order name: Urine Drug Screen; Complete Time: 09:00 [facility] 04/29 08:53 Order name: Urine Dipstick-Ancillary; Complete Time: 09:00 [facility] 04/29 09:00 Order name: CBC with Automated Diff; Complete Time: 09:03 [facility] 04/29 09:12 Order name: Creatinine (Radiology Only); Complete Time: 09:21 [facility] 04/29 09:17 Order name: Basic Metabolic Panel; Complete Time: 09:21 [facility] 04/29 09:18 Order name: Liver (Hepatic) Function; Complete Time: 09:21 [facility] 04/29 09:18 Order name: Lipase; Complete Time: 09:21 [facility] 04/29 07:28 Order name: IV Saline Lock; Complete Time: 08:46 [facility] 04/29 07:28 Order name: Labs collected and sent; Complete Time: 08:46 [facility] 04/29 07:28 Order name: EKG; Complete Time: 07:29 [facility] 04/29 07:28 Order name: EKG - Nurse/Tech; Complete Time: 09:10 [facility] 04/29 07:28 Order name: Urine Dipstick-Ancillary (obtain specimen); Complete Time: 09:04 [facility] 04/29 07:28 Order name: CT Stone Protocol [facility] 04/29 08:26 Order name: CT; Complete Time: 08:39 EDMS Administered Medications: 08:49 Drug: NS 0.9% 500 ml Route: IV; Rate: bolus; Site: right upper arm; tw2 09:00 Follow up: IV Status: IV infiltrated; IV Intake: 200ml tw2 08:50 Drug: Zofran 4 mg {Note: RIGHT calf.} Route: IVP; Site: Other; tw2 09:26 Follow up: Response: No adverse reaction tw2 08:52 Drug: morphine 4 mg {Note: Right calf.} Route: IVP; Site: Other; tw2 09:26 Follow up: Response: No adverse reaction; Pain is decreased; RASS: Alert and Calm (0) tw2 09:26 Not Given (order for discharge): NS 0.9% 1000 ml IV at 125 ml/hr continuous tw2 Disposition: 04/29/19 09:21 Discharged to Home. Impression: Low back pain, Cocaine abuse. - Condition is Stable. - Discharge Instructions: Back Pain, Adult, Chronic Back Pain, Stimulant Use Disorder-Cocaine, Musculoskeletal Pain, Back Pain, Adult, [id number], Renal Mass. - Prescriptions for Tylenol- Codeine #3 300-30 mg Oral Tablet - take 2 tablets by ORAL route every 6 hours As needed; 20 tablet. Cyclobenzaprine 5 mg Oral Tablet - take 1 tablet by ORAL route 3 times per day As needed; 15 tablet. - Medication Reconciliation Form, Thank You Letter, Antibiotic Education, Prescription Opioid Use form. - Follow up: Private Physician; When: 2 - 3 days; Reason: Recheck today's complaints, Continuance of care, Re-evaluation by your physician. Follow up: Sunday Pandey; When: 2 - 3 days; Reason: Recheck today's complaints, Re-evaluation by your physician. - Problem is new. - Symptoms have improved. Signatures: Dispatcher [employer] Vipul Solomon MD MD cha Wise, Tara, RN RN tw2 Corrections: (The following items were deleted from the chart) 09:43 09:21 04/29/2019 09:21 Discharged to Home. Impression: Low back pain; Cocaine abuse. tw2 Condition is Stable. Discharge Instructions: Back Pain, Adult, Chronic Back Pain, Musculoskeletal Pain, Back Pain, Adult, [id number], Stimulant Use Disorder-Cocaine, Renal Mass. Prescriptions for Cyclobenzaprine 5 mg Oral Tablet - take 1 tablet by ORAL route 3 times per day As needed; 15 tablet, Tylenol-Codeine #3 300-30 mg Oral Tablet - take 2 tablets by ORAL route every 6 hours As needed; 20 tablet. and Forms are Medication Reconciliation Form, Thank You Letter, Antibiotic Education, Prescription Opioid Use. Follow up: Private Physician; When: 2 - 3 days; Reason: Recheck today's complaints, Continuance of care, Re-evaluation by your physician. Follow up: Sunday Pandey; When: 2 - 3 days; Reason: Recheck today's complaints, Re-evaluation by your physician. Problem is new. Symptoms have improved. martin
[2019-04-29 09:58] VITALS: TEMP 98.2
[2019-04-29 10:06] VITALS: BP 154/79; O2SAT 99
--- NOTE | 2019-04-30 14:28 | EKG ---
Test Date: 2019-04-29 Test Time: 08:09:23 Review Consultant: ARTEM MEASUREMENT RESULTS: Intervals: Rate: 66 WY: 158 QRSD: 82 QT: 402 QTc: 421 Nitro: P: 3 WY: 158 QRS: 63 T: 65 INTERPRETIVE STATEMENTS: Normal sinus rhythm Low voltage QRS Borderline ECG Compared to ECG 06/23/2018 02:46:14 Low QRS voltage now present Left ventricular hypertrophy no longer present Electronically Signed On 04-30-19 14:28:00 MAINTENANCE TECH by Maurice Martin
== END 2019-04-29 09:43 | disposition home or self-care (01) ==
LOC: ER 07:03
DX: F14.10 Cocaine abuse, uncomplicated (principal); I10 Essential (primary) hypertension; Z21 Asymptomatic human immunodeficiency virus [HIV] infection status; Z85.038 Personal history of other malignant neoplasm of large intestine
CPT/HCPCS: 93005; 85025; 80048; 36415; 80076; 80307 ×8; 81003; 83690; 76377; 74176; 96375; 96374; 99285; J7030; J2405

== ENCOUNTER 2019-05-02 18:15 | Emergency (ER) | payer OTHER ==
--- OUTSIDE RECORDS SUMMARY | 2019-05-02 18:16 | XMS REPORT ---
:1935 [facility] Address [address] [place] [address] Dr. Camacho [address] [place] [id number] Care Team Providers Name Role Phone Unavailable Unavailable Unavailable Problems This patient has no known problems. Allergies, Adverse Reactions, Alerts This patient has no known allergies or adverse reactions. Medications This patient has no known medications.
[2019-05-02] MEDS ORDERED: NA CHLORIDE 0.9% 1,000 ML ONE (19:17)
[2019-05-02 19:49] LABS: Urine Bacteria <20 /HPF (NONE SEEN); Urine Culture Reflex Order NOT NEEDED; Urine RBC <5 /HPF (NONE SEEN)
[2019-05-02 20:01] LABS: Absolute Lymphocytes (CBC) 1.4 K/uL (0.7-4.9); Basophils % 0.7 % (0-1.3); Lymphocytes % 28.3 % (15.3-44.8); MPV 7.6 fL (7.6-11.3); RBC Red Blood Cell Count 5.13 M/uL (4.33-5.43)
[2019-05-02 20:07] LABS: Barbiturates NEGATIVE (NEGATIVE); Benzodiazepines NEGATIVE (NEGATIVE); Cocaine NEGATIVE (NEGATIVE); METHAMPHETAM NEGATIVE (NEGATIVE); Methadone NEGATIVE (NEGATIVE); Opiates NEGATIVE (NEGATIVE); Phencyclidine NEGATIVE (NEGATIVE); THC Cannibis NEGATIVE (NEGATIVE)
[2019-05-02 20:28] LABS: Urine White Blood Cell Casts OK
[2019-05-02 20:29] LABS: Blood Morphology Comment NOT SEEN (NOT SEEN); Platelet Estimate ADEQ
[2019-05-02 20:34] LABS: Urine Blood NEGATIVE (NEG); Urine Glucose NEGATIVE (NEG); Urine Protein NEGATIVE (NEG); Urine Specific Gravity <1.005 (1.005-1.030)
[2019-05-02 20:38] LABS: Albumin 2.8 g/dL (3.4-5.0); Bilirubin Total 0.6 mg/dL (0.2-1.0); Potassium 3.7 mmol/L (3.5-5.1); Protein, Total 6.3 g/dL (6.4-8.2)
[2019-05-02] MEDS ORDERED: KETOROLAC 30 MG/ML INJ ONE (20:53)
--- NOTE | 2019-05-02 21:08 | EDPHYS ---
Physician Documentation [facility] Name: Deacon Howe Jr Age: 83 yrs Sex: Male : 1935 Arrival Date: 05/02/2019 Time: 18:18 Bed 5 Private MD: ED Physician Jim Colby HPI: 05/02 21:26 This 83 yrs old Black Male presents to ER via Wheelchair with complaints of Pain All tw4 Over. 21:26 pain all over . Onset: The symptoms/episode began/occurred today. Severity of symptoms: tw4 At their worst the symptoms were moderate in the emergency department the symptoms are unchanged. Historical: - Allergies: 18:29 NKDA; ca1 - PMHx: 18:29 Chronic pain; colon cancer; Hepatitis; HIV; Hypertension; ca1 - Immunization history:: Adult Immunizations not up to date, Pneumococcal vaccine is up to date, Flu vaccine is up to date. - Coronavirus screen:: The patient has NOT traveled to [place] in the past 14 days. The patient has NOT had contact with known/suspected case of Coronavirus?. - Social history:: Smoking status: Patient reports the use of cigarette tobacco products, smokes one-half pack cigarettes per day. - Ebola Screening: : Patient negative for fever greater than or equal to 101.5 degrees Fahrenheit, and additional compatible Ebola Virus Disease symptoms Patient denies exposure to infectious person Patient denies travel to an Ebola-affected area in the 21 days before illness onset No symptoms or risks identified at this time. ROS: 21:26 Constitutional: Negative for fever, chills, and weight loss, Eyes: Negative for injury, tw4 pain, redness, and discharge, Cardiovascular: Negative for chest pain, palpitations, and edema, Respiratory: Negative for shortness of breath, cough, wheezing, and pleuritic chest pain, Abdomen/GI: Negative for abdominal pain, nausea, vomiting, diarrhea, and constipation, Back: Negative for injury and pain, Neuro: Negative for headache, weakness, numbness, tingling, and seizure. Exam: 21:26 Constitutional: This is a well developed, well nourished patient who is awake, alert, tw4 and in no acute distress. Head/Face: Normocephalic, atraumatic. Chest/axilla: Normal chest wall appearance and motion. Nontender with no deformity. No lesions are appreciated. Cardiovascular: Regular rate and rhythm with a normal S1 and S2. No gallops, murmurs, or rubs. Normal PMI, no JVD. No pulse deficits. Respiratory: Lungs have equal breath sounds bilaterally, clear to auscultation and percussion. No rales, rhonchi or wheezes noted. No increased work of breathing, no retractions or nasal flaring. Abdomen/GI: Soft, non-tender, with normal bowel sounds. No distension or tympany. No guarding or rebound. No evidence of tenderness throughout. Back: No spinal tenderness. No costovertebral tenderness. Full range of motion. MS/ Extremity: Pulses equal, no cyanosis. Neurovascular intact. Full, normal range of motion. Neuro: Awake and alert, GCS 15, oriented to person, place, time, and situation. Cranial nerves II-XII grossly intact. Motor strength 5/5 in all extremities. Sensory grossly intact. Cerebellar exam normal. Normal gait. Vital Signs: 18:29 BP 110 / 67; Pulse 90; Resp 19 S; Temp 98.5(TE); Pulse Ox 98% on R/A; Weight 74.84 kg ca1 (R); Height 6 ft. 2 in. (187.96 cm) (R); 19:15 BP 112 / 60; Pulse 92; Resp 16; Pulse Ox 95% on R/A; jb4 20:30 BP 130 / 83; Pulse 86; Resp 16; Pulse Ox 95% on R/A; jb4 21:00 BP 118 / 65; Pulse 78; Resp 18; Pulse Ox 98% on R/A; jb4 18:29 Body Mass Index 21.18 (74.84 kg, 187.96 cm) ca1 MDM: 18:44 Patient medically screened. tw4 21:26 Differential Diagnosis flu. Data reviewed: vital signs, nurses notes. Data reviewed: tw4 lab test result(s), cardiac enzymes, CBC, Flu: negative hepatic panel. Data interpreted: Pulse oximetry: Interpretation: normal. Counseling: I had a detailed discussion with the patient and/or guardian regarding: the historical points, exam findings, and any diagnostic results supporting the discharge/admit diagnosis, lab results. Special discussion: I discussed with the patient/guardian in detail that at this point there is no indication for admission to the hospital. It is understood, however, that if the symptoms persist or worsen the patient needs to return immediately for re-evaluation. 05/02 19:07 Order name: CBC with Diff; Complete Time: 20:56 [facility] 05/02 19:07 Order name: CMP; Complete Time: 20:56 [facility] 05/02 19:07 Order name: Urine Drug Screen; Complete Time: 20:56 [facility] 05/02 19:07 Order name: Urine Microscopic Only [facility] 05/02 19:07 Order name: Flu [facility] 05/02 19:09 Order name: Urine Dipstick--Ancillary (enter results); Complete Time: 20:56 [facility] 05/02 19:07 Order name: Urine Dipstick-Ancillary (obtain specimen); Complete Time: 20:08 [facility] 05/02 20:23 Order name: CBC Smear Scan; Complete Time: 20:56 EDMS Administered Medications: 19:50 Drug: NS 0.9% 1000 ml Route: IV; Rate: 1 bolus; Site: Other; 20:45 Follow up: Response: No adverse reaction; IV Status: Completed infusion; IV Intake: jb4 1000ml 20:50 Drug: TORadol - Ketorolac 15 mg {Note: administered via left leg..} Route: IVP; Site: [facility] Other; 21:58 Follow up: Response: No adverse reaction; Pain is decreased [facility] Disposition: 05/02/19 21:07 Discharged to Home. Impression: Myalgia. - Condition is Stable. - Discharge Instructions: Musculoskeletal Pain, Muscle Pain, Adult. - Prescriptions for Ibuprofen 800 mg Oral Tablet - take 1 tablet by ORAL route every 8 hours As needed take with food; 30 tablet. - Medication Reconciliation Form, Thank You Letter, Antibiotic Education, Prescription Opioid Use form. - Follow up: Private Physician; When: Upon discharge from the Emergency Department; Reason: If symptoms return, Recheck today's complaints, Continuance of care, Re-evaluation by your physician. - Problem is new. - Symptoms have improved. Signatures: Dispatcher [employer] EDHudson Burrell RN RN jb4 Nayla Palmer RN RN ea Wadley, Terrence, MD MD tw4 Tessa Jose RN RN ca1 Corrections: (The following items were deleted from the chart) 21:58 21:07 05/02/2019 21:07 Discharged to Home. Impression: Myalgia. Condition is Stable. jb4 Forms are Medication Reconciliation Form, Thank You Letter, Antibiotic Education, Prescription Opioid Use. Follow up: Private Physician; When: Upon discharge from the Emergency Department; Reason: If symptoms return, Recheck today's complaints, Continuance of care, Re-evaluation by your physician. Problem is new. Symptoms have improved. tw4
--- NOTE | 2019-05-02 21:08 | ER ---
Nurse's Notes [facility] Name: Deacon Howe Jr Age: 83 yrs Sex: Male : 1935 Arrival Date: 05/02/2019 Time: 18:18 Bed 5 Private MD: Diagnosis: Myalgia Presentation: 05/02 18:27 Presenting complaint: Patient states: I am hurting all over. My back, my stomach. I ca1 don't feel right. Transition of care: patient was not received from another setting of care. Onset of symptoms was May 02, 2019. Risk Assessment: Do you want to hurt yourself or someone else? Patient reports no desire to harm self or others. Initial Sepsis Screen: Does the patient meet any 2 criteria? No. Patient's initial sepsis screen is negative. Does the patient have a suspected source of infection? No. Patient's initial sepsis screen is negative. Care prior to arrival: None. 18:27 Method Of Arrival: Wheelchair ca1 18:27 Acuity: ALIN 3 ca1 Historical: - Allergies: 18:29 NKDA; ca1 - PMHx: 18:29 Chronic pain; colon cancer; Hepatitis; HIV; Hypertension; ca1 - Immunization history:: Adult Immunizations not up to date, Pneumococcal vaccine is up to date, Flu vaccine is up to date. - Coronavirus screen:: The patient has NOT traveled to [place] in the past 14 days. The patient has NOT had contact with known/suspected case of Coronavirus?. - Social history:: Smoking status: Patient reports the use of cigarette tobacco products, smokes one-half pack cigarettes per day. - Ebola Screening: : Patient negative for fever greater than or equal to 101.5 degrees Fahrenheit, and additional compatible Ebola Virus Disease symptoms Patient denies exposure to infectious person Patient denies travel to an Ebola-affected area in the 21 days before illness onset No symptoms or risks identified at this time. Screenin:02 Abuse screen: Denies threats or abuse. Nutritional screening: No deficits noted. jb4 Tuberculosis screening: No symptoms or risk factors identified. Fall Risk None identified. Assessment: 19:02 General: Appears in no apparent distress. uncomfortable, Behavior is calm, cooperative, jb4 appropriate for age. Pain: Complains of pain in Generalized pain Pain does not radiate. Pain currently is 8 out of 10 on a pain scale. Quality of pain is described as aching. Neuro: Level of Consciousness is awake, alert, obeys commands, Oriented to person, place, time, situation. Cardiovascular: Patient's skin is warm and dry. Respiratory: Airway is patent Respiratory effort is even, unlabored, Respiratory pattern is regular, symmetrical. GI: No signs and/or symptoms were reported involving the gastrointestinal system. : No signs and/or symptoms were reported regarding the genitourinary system. EENT: No signs and/or symptoms were reported regarding the EENT system. Derm: Skin is intact, Skin is dry, Skin is normal, Skin temperature is warm. Musculoskeletal: Circulation, motion, and sensation intact. Range of motion: intact in all extremities. 20:00 Reassessment: Patient appears in no apparent distress at this time. Patient and/or jb4 family updated on plan of care and expected duration. Pain level reassessed. Patient is alert, oriented x 3, equal unlabored respirations, skin warm/dry/pink. Pt reports pain in his left hip. Provider notified, see MAR for orders. 20:54 Reassessment: Patient appears in no apparent distress at this time. Patient and/or jb4 family updated on plan of care and expected duration. Pain level reassessed. Patient is alert, oriented x 3, equal unlabored respirations, skin warm/dry/pink. PT is resting comfortably in bed. 21:56 Reassessment: Patient appears in no apparent distress at this time. Patient and/or jb4 family updated on plan of care and expected duration. Pain level reassessed. Patient is alert, oriented x 3, equal unlabored respirations, skin warm/dry/pink. PT assisted to lobby via wheelchair to await for ride home. Verbalized understanding of d/c and follow up instructions. Vital Signs: 18:29 BP 110 / 67; Pulse 90; Resp 19 S; Temp 98.5(TE); Pulse Ox 98% on R/A; Weight 74.84 kg ca1 (R); Height 6 ft. 2 in. (187.96 cm) (R); 19:15 BP 112 / 60; Pulse 92; Resp 16; Pulse Ox 95% on R/A; jb4 20:30 BP 130 / 83; Pulse 86; Resp 16; Pulse Ox 95% on R/A; jb4 21:00 BP 118 / 65; Pulse 78; Resp 18; Pulse Ox 98% on R/A; jb4 18:29 Body Mass Index 21.18 (74.84 kg, 187.96 cm) ca1 ED Course: 18:18 Patient arrived in ED. rg4 18:28 Triage completed. ca1 18:29 Arm band placed on right wrist. ca1 18:44 Jim Colby MD is Attending Physician. tw4 19:02 Hudson Johnson, RN is Primary Nurse. jb4 19:02 Patient has correct armband on for positive identification. Placed in gown. Bed in low jb4 position. Call light in reach. Side rails up X 1. Pulse ox on. NIBP on. 19:50 Inserted saline lock: 20 gauge in left ,using aseptic technique. lower extremity Blood ea collected. 21:56 No provider procedures requiring assistance completed. IV discontinued, intact, jb4 bleeding controlled, No redness/swelling at site. Pressure dressing applied. Administered Medications: 19:50 Drug: NS 0.9% 1000 ml Route: IV; Rate: 1 bolus; Site: Other; ea 20:45 Follow up: Response: No adverse reaction; IV Status: Completed infusion; IV Intake: jb4 1000ml 20:50 Drug: TORadol - Ketorolac 15 mg {Note: administered via left leg..} Route: IVP; [facility]: [facility] Other; 21:58 Follow up: Response: No adverse reaction; Pain is decreased jb4 Intake: 20:45 IV: 1000ml; Total: 1000ml. jb4 Outcome: 21:07 Discharge ordered by . tw4 21:56 Discharged to home via wheelchair. jb4 21:56 Condition: stable 21:56 Discharge instructions given to patient, Instructed on discharge instructions, follow up and referral plans. medication usage, Demonstrated understanding of instructions, follow-up care, medications, Prescriptions given X 1. 21:58 Patient left the ED. jb4 Signatures: Janet Stack rg4 Hudson Johnson RN RN jb4 Nayla Palmer RN RN ea Wadley, Terrence, MD MD 4 Tessa Jose RN RN ca1 Corrections: (The following items were deleted from the chart) 18:29 18:29 BP 110 / 67; Pulse 90bpm; Resp 19bpm; Spontaneous; Pulse Ox 98% RA; Temp 98.5F ca1 Temporal; ca1
[2019-05-02 23:08] VITALS: TEMP 98.5; O2SAT 98
[2019-05-02 23:15] VITALS: BP 118/65
== END 2019-05-02 21:58 | disposition home or self-care (01) ==
LOC: ER 18:15
DX: M79.10 Myalgia, unspecified site (principal); I10 Essential (primary) hypertension; F17.210 Nicotine dependence, cigarettes, uncomplicated; Z21 Asymptomatic human immunodeficiency virus [HIV] infection status; Z85.038 Personal history of other malignant neoplasm of large intestine
CPT/HCPCS: 96361; 85025; 36415; 80307 ×8; 80053; 87804 ×2; 96374; 99284; J7030; 81003; 81015

== ENCOUNTER 2019-05-12 17:56 | Emergency (ER) | payer OTHER ==
[2019-05-12] MEDS ORDERED: NA CHLORIDE 0.9% 50 ML IV ONE (18:38)
[2019-05-12] MEDS ORDERED: PANTOPRAZOLE 40 MG INJ ONE (18:38)
[2019-05-12] MEDS ORDERED: ONDANSETRON 4 MG/2 ML VIAL ONE (18:38)
[2019-05-12] MEDS ORDERED: FENTANYL CITR 100 MCG/2 ML ONE (18:38)
[2019-05-12 18:39] LABS: Basophils % 0.7 % (0-1.3); Lymphocytes % 20.2 % (15.3-44.8); MPV 7.8 fL (7.6-11.3)
[2019-05-12 18:43] LABS: Protime INR 1.03
--- NOTE | 2019-05-12 18:48 | RAD REPORT ---
EXAM DESCRIPTION: RAD - Chest Single View - 05/12/2019 6:33 pm CLINICAL HISTORY: CHEST PAIN Chest pain. COMPARISON: Chest Single View dated 04/08/2019; Chest Single View dated 06/23/2018; Chest Single View dated 05/27/2018; Chest Single View dated 05/23/2018 FINDINGS: Portable technique limits examination quality. Chronic pleuroparenchymal scarring in the right inferior lung appears unchanged. Prominent emphysemat ous changes are noted throughout the lungs elsewhere. The heart is normal in size. Aorta is quite tor tuous, unchanged. IMPRESSION: Stable chest since 04/08/2019.
[2019-05-12 19:02] LABS: ALT/SGPT 16 U/L (12-78); AST/SGOT 21 U/L (15-37); Albumin 2.9 g/dL (3.4-5.0); Alkaline Phosphatase 97 U/L (45-117); BUN Blood Urea Nitrogen 18 mg/dL (7-18); Bicarbonate 24 mmol/L (21-32); Bilirubin Direct 0.2 mg/dL (0-0.2); Bilirubin Total 0.5 mg/dL (0.2-1.0); Creatine Phosphokinase 83 U/L (39-308); Glucose Level 80 mg/dL (74-106); Lipase 145 U/L (73-393); Magnesium 2.1 mg/dL (1.8-2.4); NT PRO-BNP 283 pg/mL (<450); Potassium 4.2 mmol/L (3.5-5.1); Protein, Total 6.5 g/dL (6.4-8.2); Sodium Level 137 mmol/L (136-145); Troponin (Emerg Dept Use Only) < 0.02 ng/mL (0.0-0.045)
[2019-05-12] MEDS ORDERED: KETOROLAC 30 MG/ML INJ ONE (19:20)
[2019-05-12 19:54] LABS: Urine Blood NEGATIVE (NEG); Urine Glucose NEGATIVE (NEG); Urine Protein NEGATIVE (NEG)
[2019-05-12 20:00] LABS: Barbiturates NEGATIVE (NEGATIVE); Benzodiazepines NEGATIVE (NEGATIVE); Cocaine POSITIVE (NEGATIVE); METHAMPHETAM NEGATIVE (NEGATIVE); Methadone NEGATIVE (NEGATIVE); Opiates NEGATIVE (NEGATIVE); Phencyclidine NEGATIVE (NEGATIVE); THC Cannibis NEGATIVE (NEGATIVE)
[2019-05-12 20:20] LABS: Urine Bacteria 20-50 /HPF (NONE SEEN); Urine Culture Reflex Order REFLEXED; Urine Mucus 2+ /HPF (NONE SEEN); Urine RBC <5 /HPF (NONE SEEN)
--- NOTE | 2019-05-12 20:46 | RAD REPORT ---
EXAM DESCRIPTION: CT - Angio Aorta For Dissection - 05/12/2019 8:32 pm CLINICAL HISTORY: Chest pain radiating to the back. abdominal pain;Chest pain COMPARISON: Angio Aorta For Dissection dated 06/23/2018; CTANGIO AORTA FOR DISSECTION dated 201 5; Stone Protocol dated 04/29/2019 TECHNIQUE: CT angiography of the aorta was performed with MIPs. All CT scans are performed using dose optimization technique as appropriate and may include automated exposure control or mA/KV adjustment according to patient size. FINDINGS: A left aortic arch is present with normal branching pattern of the great vessels.No acute aortic finding is seen such as aneurysm, penetrating ulcer or dissection. Atheromatous calcification is seen at the origin of visceral arteries without high-grade stenosis seen. No evidence of pulmonary embolism. Emphysematous changes again seen. Chronic right base pleural calcification again seen, unchanged. Cho lecystectomy clips. The liver demonstrates no focal mass or biliary dilatation.The spleen, pancreas, adrenal glands and r ight kidney are within normal limits for arterial phase imaging.Cystic mass is noted inferolateral po le left kidney with internal enhancement, moderately increased in size since 2019 study. The mass cur rently measures 4.0 x 3.6 cm, previously 3.5 x 3.4 cm on 06/23/2018. No bowel obstruction, free fluid or abscess.No pathologic enlarged lymphadenopathy identified. Right total hip arthroplasty is present. IMPRESSION: No acute aortic finding is demonstrated. 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
--- NOTE | 2019-05-12 22:34 | ER ---
Nurse's Notes [facility] Name: Deacon Howe Jr Age: 83 yrs Sex: Male : 1935 Arrival Date: 05/12/2019 Time: 18:07 Bed 18 Private MD: Diagnosis: Other chest pain;Cocaine abuse;Acute pain, not elsewhere classified Presentation: 05/12 19:00 Chief complaint: Patient states: complained of body aches. rv 19:00 Coronavirus screen: The patient has NOT traveled to [place] in the past 14 days. Proceed rv with normal triage procedures. The patient has NOT had contact with known and/or suspected case of Coronavirus. Proceed with normal triage procedures. Ebola Screen: No symptoms or risks identified at this time. Initial Sepsis Screen: Does the patient meet any 2 criteria? No. Patient's initial sepsis screen is negative. Does the patient have a suspected source of infection? No. Patient's initial sepsis screen is negative. Risk Assessment: Do you want to hurt yourself or someone else? Patient reports no desire to harm self or others. 19:00 Acuity: ALIN 3 rv 23:06 Method Of Arrival: EMS: [facility] rv 23:07 Onset of symptoms was May 12, 2019 at 19:00. rv Historical: - Allergies: 23:05 NKDA; rv - Home Meds: 23:05 None [Active]; rv - PMHx: 23:05 Chronic pain; colon cancer; Hepatitis; HIV; Hypertension; rv - PSHx: 23:05 Unable to obtain; rv - Immunization history:: Adult Immunizations unknown. - Social history:: Smoking status: unknown. Screenin:05 Abuse screen: Denies threats or abuse. Denies injuries from another. Nutritional rv screening: No deficits noted. Tuberculosis screening: No symptoms or risk factors identified. Fall Risk None identified. Assessment: 19:29 General: Appears in no apparent distress. Behavior is calm, cooperative. Pain: rv Complains of pain in hips Pain currently is 6 out of 10 on a pain scale. Neuro: Level of Consciousness is awake, alert, obeys commands, Oriented to person, place, time, situation. Cardiovascular: Patient's skin is warm and dry. Rhythm is regular. Respiratory: Airway is patent Breath sounds are clear bilaterally. Derm: Skin is intact. Musculoskeletal: Range of motion: intact in all extremities, Reports pain in hips. 19:31 Reassessment: GCS 15, 6/10 pain scale. patient si complaining of hip pain. referred to LETTY Martin. given Toradol as ordered. warm blanket given to patient. urine drug screen sent to lab. awaiting test results. Vital Signs: 19:27 BP 137 / 65 LA; Pulse 86; Resp 21; Pulse Ox 98% on R/A; rv 19:28 BP 129 / 69 RA; Pulse 89; Resp 22; Pulse Ox 99% on R/A; rv 20:30 BP 131 / 71; Pulse 81; Resp 16; Pulse Ox 98% on R/A; rv 21:30 BP 128 / 76; Pulse 89; Resp 18; Pulse Ox 98% on R/A; rv 22:30 BP 127 / 66; Pulse 79; Resp 17; Temp 98; Pulse Ox 99% ; rv 23:01 Pain 0/10; rv ED Course: 18:07 Patient arrived in ED. martin 18:07 [facility] cp 18:07 Vipul Castillo MD is Attending Physician. cp 18:08 Lou Starks, MARYANNE is Primary Nurse. vc 18:34 XRAY Chest (1 view) In Process Unspecified. EDMS 19:00 No provider procedures requiring assistance completed. Inserted saline lock: 20 gauge rv in right forearm, using aseptic technique. 19:00 Patient has correct armband on for positive identification. rv 19:00 bus monitor on. Pulse ox on. NIBP on. rv 19:00 Arm band placed on Patient placed Patient notified of wait time. rv 20:32 CT Aorta for Dissection In Process Unspecified. EDMS 22:21 EKG done, by ED staff, reviewed by Jim Colby MD. ds4 23:04 Triage completed. rv 23:07 IV discontinued, intact, bleeding controlled, No redness/swelling at site. Pressure rv dressing applied. Administered Medications: 18:40 Drug: Zofran (Ondansetron) 4 mg Route: IVP; Site: Other; vc 23:02 Follow up: Response: No adverse reaction rv 18:40 Drug: ProTONIX 40 mg Route: IVP; Site: Other; vc 23:02 Follow up: Response: No adverse reaction rv 18:40 Drug: fentaNYL (PF) 25 mcg Route: IVP; Site: Other; vc 23:01 Follow up: Response: No adverse reaction; RASS: Alert and Calm (0) rv 19:26 Drug: TORadol 30 mg {Note: right leg.} Route: IVP; Site: Other; rv 23:01 Follow up: Pain 0/10 Adult; Response: No adverse reaction; Marked relief of symptoms; rv Pain is decreased 23:01 Drug: Aspirin Chewable Tablet 324 mg Route: PO; rv 23:01 Follow up: Response: Medication administered at discharge. rv 23:03 Not Given (pain resolved): morphine 2 mg IVP once; (PAIN>8) RASS on ADMN: Combtv4, Very rv Agttd3, Agttd2, Rstlss1, AlertClm0, Drwsy-1, LtSdtn-2, ModSdtn-3, DpSdtn-4, UnArsble-5 x2 Outcome: 22:34 Discharge ordered by . cp 23:08 Discharged to home ambulatory. rv 23:08 Condition: good 23:08 Discharge instructions given to patient, Instructed on discharge instructions, follow up and referral plans. Demonstrated understanding of instructions, follow-up care. 23:09 Patient left the ED. rv Signatures: Dispatcher [employer] EDVipul Bob MD MD cha Swanson, Donovan ds4 Vipul Kuhn PA PA cp Vicente, Ronaldo, RN RN rv Lou Starks RN RN
--- NOTE | 2019-05-12 22:34 | EDPHYS ---
Physician Documentation [facility] Name: Deacon Howe Jr Age: 83 yrs Sex: Male : 1935 Arrival Date: 05/12/2019 Time: 18:07 Bed 18 Private MD: ED Physician Vipul Castillo HPI: 05/12 18:12 This 83 yrs old Black Male presents to ER via Unassigned with complaints of chest pain, cp pain all over. 18:12 The patient or guardian reports chest pain that is located primarily in the anterior cp chest wall, bilaterally. Onset: 2 day(s) ago, and became worse 4 hour(s) ago. Associated signs and symptoms: Pertinent positives: abdominal pain, cough, pain all over. The chest pain is described as aching. Duration: The patient or guardian reports a single episode, that is still ongoing, and worsening. Historical: - Allergies: 23:05 NKDA; rv - Home Meds: 23:05 None [Active]; rv - PMHx: 23:05 Chronic pain; colon cancer; Hepatitis; HIV; Hypertension; rv - PSHx: 23:05 Unable to obtain; rv - Immunization history:: Adult Immunizations unknown. - Social history:: Smoking status: unknown. ROS: 18:15 Constitutional: Negative for body aches, chills, fever, poor PO intake. cp 18:15 Eyes: Negative for injury, pain, redness, and discharge. cp 18:15 ENT: Negative for drainage from ear(s), ear pain, sore throat, difficulty swallowing, difficulty handling secretions. 18:15 Cardiovascular: Positive for chest pain, Negative for edema, palpitations. 18:15 Respiratory: Negative for cough, shortness of breath, wheezing. 18:15 Abdomen/GI: Positive for abdominal pain, nausea, vomiting, Negative for diarrhea, constipation, black/tarry stool, rectal bleeding. 18:15 MS/extremity: Positive for pain all over, Negative for injury or acute deformity, decreased range of motion, paresthesias. 18:15 Skin: Negative for cellulitis, rash. 18:15 Neuro: Negative for altered mental status, syncope, weakness. 18:15 All other systems are negative. Exam: 18:15 ECG was reviewed by the Attending Physician. cp 18:20 Constitutional: The patient appears in no acute distress, alert, awake, cp non-diaphoretic, non-toxic, well developed, frail. 18:20 Head/Face: Normocephalic, atraumatic. cp 18:20 Eyes: Periorbital structures: appear normal, Pupils: equal, round, and reactive to light and accomodation, Extraocular movements: intact throughout, Conjunctiva: normal, no exudate, no injection, Sclera: no appreciated abnormality, Lids and lashes: appear normal, bilaterally. 18:20 ENT: External ear(s): are unremarkable, Ear canal(s): are normal, clear, TM's: dullness, bilaterally, Nose: is normal, Mouth: Lips: moist, Oral mucosa: pink and intact, moist, Posterior pharynx: is normal, airway is patent, no erythema, no exudate. 18:20 Neck: ROM/movement: is normal, is supple, no range of motions limitations, no meningismus, no nuchal rigidity. 18:20 Chest/axilla: Inspection: normal, Palpation: is normal, no crepitus, no tenderness. 18:20 Cardiovascular: Rate: normal, Rhythm: regular, Edema: is not appreciated, JVD: is not appreciated. 18:20 Respiratory: the patient does not display signs of respiratory distress, Respirations: normal, no use of accessory muscles, no retractions, labored breathing, is not present, Breath sounds: are clear throughout, no decreased breath sounds, no stridor, no wheezing. 18:20 Abdomen/GI: Inspection: abdomen appears normal, Bowel sounds: active, all quadrants, Palpation: soft, in all quadrants, moderate abdominal tenderness, in the epigastric area, rebound tenderness, is not appreciated, voluntary guarding, is elicited in the epigastric area. 18:20 Back: CVA tenderness, is absent. 18:20 Skin: no rash present. 18:20 Neuro: Orientation: to person, place \T\ time. Mentation: is normal, Motor: moves all fours, strength is normal, Sensation: is normal. 22:30 ECG was reviewed by the Attending Physician. cp Vital Signs: 19:27 BP 137 / 65 LA; Pulse 86; Resp 21; Pulse Ox 98% on R/A; rv 19:28 BP 129 / 69 RA; Pulse 89; Resp 22; Pulse Ox 99% on R/A; rv 20:30 BP 131 / 71; Pulse 81; Resp 16; Pulse Ox 98% on R/A; rv 21:30 BP 128 / 76; Pulse 89; Resp 18; Pulse Ox 98% on R/A; rv 22:30 BP 127 / 66; Pulse 79; Resp 17; Temp 98; Pulse Ox 99% ; rv 23:01 Pain 0/10; rv MDM: 18:11 Patient medically screened. martin 22:32 Data reviewed: vital signs, nurses notes, lab test result(s), EKG, radiologic studies, cp CT scan, plain films, and as a result, I will discharge patient. 05/12 18:09 Order name: Basic Metabolic Panel; Complete Time: 19:04 cp 05/12 19:04 Interpretation: Normal except: GFR 68. cp 05/12 18:09 Order name: CBC with Diff; Complete Time: 19:04 cp 05/12 19:04 Interpretation: Normal except: MCV 79.3; MCH 25.7; RDW 16.6; MN% 14.8. cp 05/12 18:09 Order name: LFT's; Complete Time: 19:04 cp 05/12 19:04 Interpretation: Normal except: ALB 2.9; GLOB 3.6; A/G 0.8. cp 05/12 18:09 Order name: Magnesium; Complete Time: 19:04 cp 05/12 18:09 Order name: NT PRO-BNP; Complete Time: 19:04 cp 05/12 18:09 Order name: PT-INR; Complete Time: 19:04 cp 05/12 18:09 Order name: Troponin (emerg Dept Use Only); Complete Time: 19:04 cp 05/12 19:04 Interpretation: Within normal limits: TROPED < 0.02. cp 05/12 18:09 Order name: Lipase; Complete Time: 19:04 cp 05/12 19:05 Interpretation: Within normal limits: LIP 145. cp 05/12 18:09 Order name: UDS; Complete Time: 21:03 cp 05/12 21:03 Interpretation: Normal except: PADMAJA POSITIVE. cp 05/12 18:09 Order name: CPK; Complete Time: 19:04 cp 05/12 19:05 Interpretation: Within normal limits: CPK 83. cp 05/12 19:18 Order name: Urine Dipstick--Ancillary (enter results); Complete Time: 21:03 ar5 05/12 21:03 Interpretation: Reviewed. 05/12 19:39 Order name: Urine Microscopic Only; Complete Time: 21:03 cp 05/12 21:03 Interpretation: Normal except: UBACT 20-50; SQEPI 5-10. cp 05/12 20:21 Order name: Urine Culture EDMS 05/12 21:58 Order name: Troponin I; Complete Time: 22:31 cp 05/12 22:31 Interpretation: Reviewed. 05/12 18:09 Order name: XRAY Chest (1 view); Complete Time: 19:04 cp 05/12 21:05 Interpretation: Report review. 05/12 18:09 Order name: EKG; Complete Time: 18:10 cp 05/12 18:09 Order name: Cardiac monitoring; Complete Time: 18:48 cp 05/12 18:09 Order name: EKG - Nurse/Tech; Complete Time: 18:48 05/12 18:09 Order name: IV Saline Lock; Complete Time: 18:48 cp 05/12 18:09 Order name: Labs collected and sent; Complete Time: 18:49 cp 05/12 18:09 Order name: O2 Per Protocol; Complete Time: 18:49 cp 05/12 18:09 Order name: O2 Sat Monitoring; Complete Time: 18:49 cp 05/12 19:38 Order name: CT Aorta for Dissection; Complete Time: 21:03 cp 05/12 21:06 Interpretation: Report reviewed. 05/12 21:58 Order name: EKG; Complete Time: 21:59 cp 05/12 19:08 Order name: Vital Signs; Complete Time: 19:29 cp 05/12 19:08 Order name: Blood Pressure Recheck: bilateral upper extremity; Complete Time: 19:29 cp 05/12 19:39 Order name: Urine Dipstick-Ancillary (obtain specimen); Complete Time: 19:44 cp 05/12 21:58 Order name: EKG - Nurse/Tech; Complete Time: 22:21 cp EC:15 Rate is 93 beats/min. Rhythm is regular. ID interval is normal. QRS interval is normal. cp QT interval is normal. T waves are Inverted in lead aVL. Interpreted by me. Reviewed by me. 22:30 Rate is 78 beats/min. Rhythm is regular. ID interval is normal. QRS interval is normal. cp QT interval is normal. T waves are Flattened in lead aVL. Interpreted by me. Reviewed by me. Administered Medications: 18:40 Drug: Zofran (Ondansetron) 4 mg Route: IVP; Site: Other; vc 23:02 Follow up: Response: No adverse reaction rv 18:40 Drug: ProTONIX 40 mg Route: IVP; Site: Other; vc 23:02 Follow up: Response: No adverse reaction rv 18:40 Drug: fentaNYL (PF) 25 mcg Route: IVP; Site: Other; vc 23:01 Follow up: Response: No adverse reaction; RASS: Alert and Calm (0) rv 19:26 Drug: TORadol 30 mg {Note: right leg.} Route: IVP; Site: Other; rv 23:01 Follow up: Pain 0/10 Adult; Response: No adverse reaction; Marked relief of symptoms; rv Pain is decreased 23:01 Drug: Aspirin Chewable Tablet 324 mg Route: PO; rv 23:01 Follow up: Response: Medication administered at discharge. rv 23:03 Not Given (pain resolved): morphine 2 mg IVP once; (PAIN>8) RASS on ADMN: Combtv4, Very rv Agttd3, Agttd2, Rstlss1, AlertClm0, Drwsy-1, LtSdtn-2, ModSdtn-3, DpSdtn-4, UnArsble-5 x2 Disposition: 05/12/19 22:34 Discharged to Home. Impression: Other chest pain, Cocaine abuse, Acute pain, not elsewhere classified. - Condition is Stable. - Discharge Instructions: Nonspecific Chest Pain, Stimulant Use Disorder-Cocaine, Musculoskeletal Pain, Aspirin and Your Heart. - Medication Reconciliation Form, Thank You Letter, Antibiotic Education, Prescription Opioid Use form. - Follow up: Private Physician; When: 1 - 2 days; Reason: Recheck today's complaints. - Problem is new. - Symptoms have improved. Addendum: 05/14/2019 17:52 Co-signature as Attending Physician, Vipul Castillo MD I agree with the assessment and c braden plan of care. Signatures: Dispatcher [employer] Vipul Solomon MD MD cha Page, Corey, PA PA cp Vicente, Ronaldo RN RN rv Calcote, Lou, RN RN vc Corrections: (The following items were deleted from the chart) 05/12 23:09 22:34 05/12/2019 22:34 Discharged to Home. Impression: Other chest pain; Cocaine abuse; rv Acute pain, not elsewhere classified. Condition is Stable. Forms are Medication Reconciliation Form, Thank You Letter, Antibiotic Education, Prescription Opioid Use. Follow up: Private Physician; When: 1 - 2 days; Reason: Recheck today's complaints. Problem is new. Symptoms have improved. cp
[2019-05-12 23:23] VITALS: BP 127/66; TEMP 98; O2SAT 99
--- NOTE | 2019-05-13 11:00 | EKG ---
Test Date: 2019-05-12 Test Time: 22:14:48 Tire Mold Tester: FILIPPO MEASUREMENT RESULTS: Intervals: Rate: 78 DE: 176 QRSD: 76 QT: 368 QTc: 419 [place]: P: 7 DE: 176 QRS: 62 T: 63 INTERPRETIVE STATEMENTS: Sinus rhythm with premature atrial complexes Low voltage QRS Borderline ECG Compared to ECG 05/12/2019 18:01:23 Low QRS voltage now present Electronically Signed On 05-13-19 10:59:44 HIV COUNSELOR by Rocco Menjivar
--- NOTE | 2019-05-15 15:40 | EKG ---
Test Date: 2019-05-12 Test Time: 18:01:23 Design Technician: SHELLIE MEASUREMENT RESULTS: Intervals: Rate: 93 VT: 170 QRSD: 80 QT: 330 QTc: 410 [place]: P: 53 VT: 170 QRS: 74 T: 65 INTERPRETIVE STATEMENTS: Sinus rhythm with premature supraventricular complexes Otherwise normal ECG Compared to ECG 04/29/2019 08:09:23 Atrial premature complex(es) now present Electronically Signed On 05-15-19 15:39:52 ARCHIVES DIRECTOR by Maurice Martin
== END 2019-05-12 23:09 | disposition home or self-care (01) ==
LOC: ER 17:56
DX: F14.10 Cocaine abuse, uncomplicated (principal); R52 Pain, unspecified; I10 Essential (primary) hypertension; Z21 Asymptomatic human immunodeficiency virus [HIV] infection status; Z85.038 Personal history of other malignant neoplasm of large intestine
CPT/HCPCS: 93005 ×2; 87088; 85025; 80048; 36415; 83735; 82550; 85610; 80076; 80307 ×8; 84484 ×2; 83690; 83880; 71275; 74175; 71045; 96375; 96374; 99284; Q9967; C9113; J3010; J2405; 81003; 81015; 87086

== ENCOUNTER 2019-05-15 05:57 | Emergency (ER) | payer OTHER ==
--- OUTSIDE RECORDS SUMMARY | 2019-05-15 05:59 | XMS REPORT ---
:1935 [facility] Address [address] [place] [address] Dr. Camacho [address] [place] [id number] Care Team Providers Name Role Phone Unavailable Unavailable Unavailable Problems This patient has no known problems. Allergies, Adverse Reactions, Alerts This patient has no known allergies or adverse reactions. Medications This patient has no known medications.
--- NOTE | 2019-05-15 06:08 | ER ---
Nurse's Notes [facility] Name: Deacon Howe Jr Age: 83 yrs Sex: Male : 1935 Arrival Date: 05/15/2019 Time: 05:59 Bed 18 Private MD: Diagnosis: Low back pain Presentation: 05/14 05:59 Chief complaint: EMS states: Pt complaining of back and neck pain from sleeping on the ea ground. Denies trauma. Coronavirus screen: The patient has NOT traveled to [place] in the past 14 days. Ebola Screen: No symptoms or risks identified at this time. Initial Sepsis Screen: Does the patient meet any 2 criteria? No. Patient's initial sepsis screen is negative. Does the patient have a suspected source of infection? No. Patient's initial sepsis screen is negative. Risk Assessment: Do you want to hurt yourself or someone else? Patient reports no desire to harm self or others. 05:59 Method Of Arrival: EMS: [facility] 05:59 Acuity: ALIN 4 ea 06:19 Onset of symptoms is unknown. bb3 Triage Assessment: 06:03 General: Appears in no apparent distress. Behavior is appropriate for age. Pain: ea Complains of pain in back of neck and posterior chest. Historical: - Allergies: 06:03 NKDA; ea - PMHx: 06:03 Hypertension; HIV; Hepatitis; colon cancer; Chronic pain; ea - PSHx: 06:03 Unable to obtain; ea - Immunization history:: Adult Immunizations unknown. - Social history:: Smoking status: Patient reports the use of cigarette tobacco products, smokes one-half pack cigarettes per day. Screenin:01 Abuse screen: Denies threats or abuse. Nutritional screening: No deficits noted. ea Tuberculosis screening: No symptoms or risk factors identified. Fall Risk None identified. Assessment: 06:16 General: Appears in no apparent distress. comfortable, slender, unkempt, Behavior is bb3 calm, cooperative, appropriate for age, Reports Denies fever, feeling ill. Neuro: No deficits noted. Level of Consciousness is awake, alert, obeys commands, Oriented to person, place, time, Appropriate for age. Cardiovascular: No deficits noted. Respiratory: Airway is patent Respiratory effort is even, unlabored, Respiratory pattern is regular. GI: No signs and/or symptoms were reported involving the gastrointestinal system. : No signs and/or symptoms were reported regarding the genitourinary system. Vital Signs: 05:59 BP 126 / 72; Pulse 79; Resp 18; Temp 97.5; Pulse Ox 99% on R/A; Weight 74.84 kg; Height ea 6 ft. 2 in. (187.96 cm); 06:15 BP 126 / 72; Pulse 79; Resp 18; Pulse Ox 99% ; bb3 05:59 Body Mass Index 21.18 (74.84 kg, 187.96 cm) ea ED Course: 05:59 Patient arrived in ED. cl3 06:00 Ros[facility] Gifford F[facility]-C [facility]. snw 06:00 Zana Coulter MD is Attending Physician. snw 06:01 Triage completed. ea 06:01 Arm band placed on right wrist. Patient placed in an exam room, on a stretcher, on ea pulse oximetry. 06:01 Patient has correct armband on for positive identification. Placed in gown. Bed in low ea position. Call light in reach. Side rails up X2. 06:18 No provider procedures requiring assistance completed. bb3 06:20 Patient did not have IV access during this emergency room visit. bb3 Administered Medications: 06:13 Drug: Benadryl 25 mg Route: PO; bb3 06:22 Follow up: Response: No adverse reaction bb3 Outcome: 06:07 Discharge ordered by . snw 06:19 Discharged to home via wheelchair. bb3 06:19 Condition: stable 06:19 Discharge instructions given to patient, Instructed on discharge instructions, Demonstrated understanding of instructions. 06:24 Patient left the ED. bb3 Signatures: Rosetta Gifford FNP-C FNP-Csnw Nayla Palmer, River Benito RN, ea cl3 Moriah Mcfarland bb3
--- NOTE | 2019-05-15 06:08 | EDPHYS ---
Physician Documentation [facility] Name: Deacon Howe Jr Age: 83 yrs Sex: Male : 1935 Arrival Date: 05/15/2019 Time: 05:59 Bed 18 Private MD: ED Physician Zana Coulter HPI: 05/14 06:09 This 83 yrs old Black Male presents to ER via EMS with complaints of Leg Pain, Back snw Pain. 06:09 The patient presents with pain, that is chronic. The complaints affect the low back snw area and back of neck. Context: resulted from a chronic condition, "bad decision", pt states he slept outside [place] [employer] as his kids wouldn't come to the door. States low back and posterior neck pain, the patient is able to ambulate. Onset: The symptoms/episode began/occurred acutely. Associated signs and symptoms: Pertinent positives: Pt requests his toenails trimmed, a sandwich, a phone, and something to help him rest. Treatment prior to arrival includes: no previous treatment. Severity of symptoms: At their worst the symptoms were mild. The patient has experienced similar episodes in the past, chronically. The patient has been recently seen at the [facility] Emergency Department, for unrelated complaints, drug abuse. Historical: - Allergies: 06:03 NKDA; ea - PMHx: 06:03 Hypertension; HIV; Hepatitis; colon cancer; Chronic pain; ea - PSHx: 06:03 Unable to obtain; ea - Immunization history:: Adult Immunizations unknown. - Social history:: Smoking status: Patient reports the use of cigarette tobacco products, smokes one-half pack cigarettes per day. ROS: 06:08 Constitutional: Negative for fever, chills, and weight loss, Eyes: Negative for injury, snw pain, redness, and discharge, ENT: Negative for injury, pain, and discharge, Neck: Negative for injury and swelling, + pain to neck Cardiovascular: Negative for chest pain, palpitations, and edema, Respiratory: Negative for shortness of breath, cough, wheezing, and pleuritic chest pain, Abdomen/GI: Negative for abdominal pain, nausea, vomiting, diarrhea, and constipation, : Negative for injury, bleeding, discharge, and swelling, MS/Extremity: Negative for injury and deformity, Skin: Negative for injury, rash, and discoloration, Neuro: Negative for headache, weakness, numbness, tingling, and seizure, Psych: Negative for depression, anxiety, suicide ideation, homicidal ideation, and hallucinations. 06:08 Back: Positive for pain at rest, pain with movement, of the low back area. Exam: 06:07 Constitutional: This is a well developed, well nourished patient who is awake, alert, snw and in no acute distress. Head/Face: Normocephalic, atraumatic. Eyes: Pupils equal round and reactive to light, extra-ocular motions intact. Lids and lashes normal. Conjunctiva and sclera are non-icteric and not injected. Cornea within normal limits. Periorbital areas with no swelling, redness, or edema. ENT: Nares patent. No nasal discharge, no septal abnormalities noted. Tympanic membranes are normal and external auditory canals are clear. Oropharynx with no redness, swelling, or masses, exudates, or evidence of obstruction, uvula midline. Mucous membranes moist. Neck: Trachea midline, no thyromegaly or masses palpated, and no cervical lymphadenopathy. Supple, full range of motion without nuchal rigidity, or vertebral point tenderness. No Meningismus. Chest/axilla: Normal chest wall appearance and motion. Nontender with no deformity. No lesions are appreciated. Cardiovascular: Regular rate and rhythm with a normal S1 and S2. No gallops, murmurs, or rubs. Normal PMI, no JVD. No pulse deficits. Respiratory: Lungs have equal breath sounds bilaterally, clear to auscultation and percussion. No rales, rhonchi or wheezes noted. No increased work of breathing, no retractions or nasal flaring. Abdomen/GI: Soft, non-tender, with normal bowel sounds. No distension or tympany. No guarding or rebound. No evidence of tenderness throughout. Back: No spinal tenderness. No costovertebral tenderness. Full range of motion. Skin: Warm, dry with normal turgor. Normal color with no rashes, no lesions, and no evidence of cellulitis. MS/ Extremity: Pulses equal, no cyanosis. Neurovascular intact. Full, normal range of motion. Neuro: Awake and alert, GCS 15, oriented to person, place, time, and situation. Cranial nerves II-XII grossly intact. Motor strength 5/5 in all extremities. Sensory grossly intact. Cerebellar exam normal. Normal gait. Psych: Awake, alert, with orientation to person, place and time. Behavior, mood, and affect are within normal limits. Vital Signs: 05:59 BP 126 / 72; Pulse 79; Resp 18; Temp 97.5; Pulse Ox 99% on R/A; Weight 74.84 kg; Height ea 6 ft. 2 in. (187.96 cm); 06:15 BP 126 / 72; Pulse 79; Resp 18; Pulse Ox 99% ; bb3 05:59 Body Mass Index 21.18 (74.84 kg, 187.96 cm) ea MDM: 06:07 Patient medically screened. snw 06:08 Data reviewed: vital signs, nurses notes. Data interpreted: Pulse oximetry: on room air snw is 99 %. Interpretation: normal. Counseling: I had a detailed discussion with the patient and/or guardian regarding: the historical points, exam findings, and any diagnostic results supporting the discharge/admit diagnosis, the need for outpatient follow up, to return to the emergency department if symptoms worsen or persist or if there are any questions or concerns that arise at home. Special discussion: Based on the history and exam findings, there is no indication for further emergent testing or inpatient evaluation. I discussed with the patient/guardian the need to see the primary care provider for further evaluation of the symptoms. Administered Medications: 06:13 Drug: Benadryl 25 mg Route: PO; bb3 06:22 Follow up: Response: No adverse reaction bb3 Disposition: 06:26 Co-signature as Attending Physician, Zana Coulter MD. asael Disposition: 05/15/19 06:07 Discharged to Home. Impression: Low back pain. - Condition is Stable. - Discharge Instructions: Back Pain, Adult, Musculoskeletal Pain, Cryotherapy, Heat Therapy. - Medication Reconciliation Form, Thank You Letter, Antibiotic Education, Prescription Opioid Use form. - Follow up: Emergency Department; When: As needed; Reason: Worsening of condition. Follow up: Private Physician; When: 1 - 2 days; Reason: Recheck today's complaints, Continuance of care, Re-evaluation by your physician. Signatures: Zana Coulter MD MD pkl Therrien, Shelly, LEIDY-C COMMERCIAL PLUMBER-Davisw Nayla Palmer RN RN Moriah Monique bb3 Corrections: (The following items were deleted from the chart) 06:24 06:07 05/15/2019 06:07 Discharged to Home. Impression: Low back pain. Condition is bb3 Stable. Forms are Medication Reconciliation Form, Thank You Letter, Antibiotic Education, Prescription Opioid Use. Follow up: Emergency Department; When: As needed; Reason: Worsening of condition. Follow up: Private Physician; When: 1 - 2 days; Reason: Recheck today's complaints, Continuance of care, Re-evaluation by your physician. snw
[2019-05-15] MEDS ORDERED: DIPHENHYDRAMINE 25 MG TAB/CAP ONE (06:15)
[2019-05-15 06:31] VITALS: BP 126/72; TEMP 97.5; O2SAT 99
== END 2019-05-15 06:24 | disposition home or self-care (01) ==
LOC: ER 05:57
DX: M54.5 Low back pain (principal); F17.210 Nicotine dependence, cigarettes, uncomplicated; Z85.038 Personal history of other malignant neoplasm of large intestine
CPT/HCPCS: 99283

== ENCOUNTER 2019-05-17 04:53 | Emergency (ER) | payer OTHER ==
[2019-05-17] MEDS ORDERED: CYCLOBENZAPRINE 10 MG TAB ONE (05:10)
--- NOTE | 2019-05-17 05:31 | EDPHYS ---
Physician Documentation [facility] Name: Deacon Howe Jr Age: 83 yrs Sex: Male : 1935 Arrival Date: 05/17/2019 Time: 05:02 Bed 8 Private MD: ED Physician Sp Herron HPI: 05/16 05:25 This 83 yrs old Black Male presents to ER via EMS with complaints of pain everywhere. rn 05:25 Reports "pain everywhere", [place], approached by police, and rn then began to complain of pain everywhere, denies trauma. Reports rides bicycle all of the time and hurts in low back, right hip, neck. Has had pain like this before but reports worse over last week. States symptoms worse when cold, and get better when covers himself with multiple blankets. . Onset: The symptoms/episode began/occurred 1 week(s) ago. Severity of symptoms: At their worst the symptoms were mild in the emergency department the symptoms are unchanged. The patient has experienced similar episodes in the past. The patient has not recently seen a physician. Historical: - Allergies: 05:09 NKDA; lp1 - Home Meds: 05:09 None [Active]; lp1 - PMHx: 05:09 Chronic pain; colon cancer; Hepatitis; HIV; Hypertension; lp1 - PSHx: 05:09 Cholecystectomy; hip surgery; eye surgery; lp1 - Immunization history:: Adult Immunizations unknown. - Social history:: Smoking status: Patient reports the use of cigarette tobacco products, smokes one-half pack cigarettes per day. - Family history:: not pertinent. - Hospitalizations: : No recent hospitalization is reported. ROS: 05:25 Constitutional: Negative for fever, chills, and weight loss, Eyes: Negative for injury, rn pain, redness, and discharge, Neck: Negative for injury, pain, and swelling, Cardiovascular: Negative for chest pain, palpitations, and edema, Respiratory: Negative for shortness of breath, cough, wheezing, and pleuritic chest pain, Abdomen/GI: Negative for abdominal pain, nausea, vomiting, diarrhea, and constipation, Back: + low back pain MS/Extremity: Negative for injury and deformity, Skin: Negative for injury, rash, and discoloration, Neuro: Negative for headache, weakness, numbness, tingling, and seizure. Exam: 05:25 Constitutional: This is a well developed, well nourished patient who is awake, alert, rn and in no acute distress. Sitting upright and transfers himself from stretcher to bed Head/Face: Normocephalic, atraumatic. ENT: MMM Cardiovascular: Regular rate and rhythm. No pulse deficits. Respiratory: No increased work of breathing, no retractions or nasal flaring. Abdomen/GI: soft, non-tender Back: No spinal tenderness. No costovertebral tenderness. Full range of motion. MS/ Extremity: Pulses equal, no cyanosis. Neurovascular intact. Full, normal range of motion. Equal circumference. Neuro: Awake and alert, GCS 15, oriented to person, place, time, and situation. Cranial nerves II-XII grossly intact. Motor strength 5/5 in all extremities. Sensory grossly intact. Cerebellar exam normal. Normal gait. Vital Signs: 05:07 BP 131 / 85; Pulse 76; Resp 18; Temp 97.6(O); Pulse Ox 98% on R/A; Weight 88.45 kg; lp1 Height 5 ft. 2 in. (157.48 cm); Pain 8/10; 05:07 Body Mass Index 35.67 (88.45 kg, 157.48 cm) lp1 MDM: 05:02 Patient medically screened. rn 05:25 Differential Diagnosis myalgia, arthritis, chronic pain. Data reviewed: vital signs, rn nurses notes, and as a result, I will discharge patient. Counseling: I had a detailed discussion with the patient and/or guardian regarding: the historical points, exam findings, and any diagnostic results supporting the discharge/admit diagnosis, the need for outpatient follow up, to return to the emergency department if symptoms worsen or persist or if there are any questions or concerns that arise at home. Special discussion: I discussed with the patient/guardian in detail that at this point there is no indication for admission to the hospital. It is understood, however, that if the symptoms persist or worsen the patient needs to return immediately for re-evaluation. Administered Medications: 05:07 Drug: Flexeril 10 mg Route: PO; rr5 05:45 Follow up: Response: No adverse reaction lp1 Disposition: 05/17/19 05:30 Discharged to Home. Impression: Myalgia, Chronic pain, not elsewhere classified. - Condition is Stable. - Discharge Instructions: Musculoskeletal Pain, Muscle Pain, Adult. - Medication Reconciliation Form, Thank You Letter, Antibiotic Education, Prescription Opioid Use form. - Follow up: Private Physician; When: As needed; Reason: Recheck today's complaints, Re-evaluation by your physician. - Problem is new. - Symptoms have improved. Signatures: Sp Herron MD MD rn Pena, Laura, RN RN lp1 Byron Rai RN RN rr5 Corrections: (The following items were deleted from the chart) 05:57 05:30 05/17/2019 05:30 Discharged to Home. Impression: Myalgia; Chronic pain, not lp1 elsewhere classified. Condition is Stable. Forms are Medication Reconciliation Form, Thank You Letter, Antibiotic Education, Prescription Opioid Use. Follow up: Private Physician; When: As needed; Reason: Recheck today's complaints, Re-evaluation by your physician. Problem is new. Symptoms have improved. rn
--- NOTE | 2019-05-17 05:31 | ER ---
Nurse's Notes [facility] Name: Deacon Howe Jr Age: 83 yrs Sex: Male : 1935 Arrival Date: 05/17/2019 Time: 05:02 Bed 8 Private MD: Diagnosis: Myalgia;Chronic pain, not elsewhere classified Presentation: 05/16 05:06 Chief complaint: EMS states: Called for patient with pain all over general body; States lp1 pain is mostly to right hip x 1 week; Denies any trauma or injury; States pain makes it difficult for him to ride his bike. Coronavirus screen: The patient has NOT traveled to [place] in the past 14 days. The patient has NOT had contact with known and/or suspected case of Coronavirus. Ebola Screen: No symptoms or risks identified at this time. Initial Sepsis Screen: Does the patient meet any 2 criteria? No. Patient's initial sepsis screen is negative. Does the patient have a suspected source of infection? No. Patient's initial sepsis screen is negative. Risk Assessment: Do you want to hurt yourself or someone else? Patient reports no desire to harm self or others. Onset of symptoms was May 17, 2019. 05:06 Method Of Arrival: EMS: [facility] lp1 05:06 Acuity: ALIN 4 lp1 Historical: - Allergies: 05:09 NKDA; lp1 - Home Meds: 05:09 None [Active]; lp1 - PMHx: 05:09 Chronic pain; colon cancer; Hepatitis; HIV; Hypertension; lp1 - PSHx: 05:09 Cholecystectomy; hip surgery; eye surgery; lp1 - Immunization history:: Adult Immunizations unknown. - Social history:: Smoking status: Patient reports the use of cigarette tobacco products, smokes one-half pack cigarettes per day. - Family history:: not pertinent. - Hospitalizations: : No recent hospitalization is reported. Screenin:09 Abuse screen: Denies threats or abuse. Denies injuries from another. Nutritional lp1 screening: No deficits noted. Tuberculosis screening: No symptoms or risk factors identified. Fall Risk Total Pedroza Fall Scale indicates High Risk Score (45 or more points). Fall prevention measures have been instituted. Side Rails Up X 2 As available patient and family educated on Fall Prevention Program and Strategies. Assessment: 05:15 General: Appears in no apparent distress. Behavior is appropriate for age. Pain: lp1 Complains of pain in right hip Pain currently is 8 out of 10 on a pain scale. Pain began 1 week ago Aggravated by exercise, increased activity. Neuro: Level of Consciousness is awake, alert, obeys commands, Oriented to person, place, time, situation. Cardiovascular: Patient's skin is warm and dry. Respiratory: Respiratory effort is even, unlabored. GI: Abdomen is non-distended. : No signs and/or symptoms were reported regarding the genitourinary system. EENT: No signs and/or symptoms were reported regarding the EENT system. Derm: Skin is intact, Skin is dry, Skin is normal. Musculoskeletal: Range of motion: intact in all extremities. 05:53 Reassessment: Patient appears in no apparent distress at this time. Patient able to lp1 stand, transfer to wheelchair. Vital Signs: 05:07 BP 131 / 85; Pulse 76; Resp 18; Temp 97.6(O); Pulse Ox 98% on R/A; Weight 88.45 kg; lp1 Height 5 ft. 2 in. (157.48 cm); Pain 8/10; 05:07 Body Mass Index 35.67 (88.45 kg, 157.48 cm) lp1 ED Course: 05:02 Patient arrived in ED. rn 05:02 Sp Herron MD is Attending Physician. rn 05:07 Triage completed. lp1 05:07 Arm band placed on right wrist. lp1 05:09 Mary Steiner RN is Primary Nurse. lp1 05:09 Patient has correct armband on for positive identification. Pulse ox on. NIBP on. lp1 05:11 Mary Steiner RN is Primary Nurse. lp1 05:53 No provider procedures requiring assistance completed. Patient did not have IV access lp1 during this emergency room visit. Administered Medications: 05:07 Drug: Flexeril 10 mg Route: PO; rr5 05:45 Follow up: Response: No adverse reaction lp1 Outcome: 05:30 Discharge ordered by . rn 05:45 Discharged to home via wheelchair. lp1 05:45 Condition: good 05:45 Discharge instructions given to patient, Instructed on discharge instructions, follow up and referral plans. Demonstrated understanding of instructions, follow-up care. 05:50 Patient left the ED. lp1 Signatures: Sp Herron MD MD rn Mary Steiner RN RN lp1 Byron Rai RN RN rr5 Corrections: (The following items were deleted from the chart) 05:18 05:06 Initial Sepsis Screen: Does the patient meet any 2 criteria? No. Patient's lp1 initial sepsis screen is negative. Does the patient have a suspected source of infection? No. Patient's initial sepsis screen is negative. lp1 05:58 05:57 Patient left the ED. lp1 lp1
[2019-05-17 06:04] VITALS: BP 131/85; TEMP 97.6; O2SAT 98
== END 2019-05-17 05:57 | disposition home or self-care (01) ==
LOC: ER 04:53
DX: M79.10 Myalgia, unspecified site (principal); G89.29 Other chronic pain; Z85.038 Personal history of other malignant neoplasm of large intestine; B20 Human immunodeficiency virus [HIV] disease
CPT/HCPCS: 99283

== ENCOUNTER 2019-05-31 17:00 | Emergency (ER) | payer OTHER ==
[2019-05-31] MEDS ORDERED: ONDANSETRON 4 MG/2 ML VIAL ONE (17:37)
[2019-05-31] MEDS ORDERED: FAMOTIDINE 20 MG/2 ML VIAL IV ONE (17:37)
[2019-05-31] MEDS ORDERED: NA CHLORIDE 0.9% 1,000 ML ONE (17:37)
[2019-05-31 18:02] LABS: Basophils % 1.5 % (0-1.3); Hematocrit 43.3 % (39.6-49.0); Lymphocytes % 22.4 % (15.3-44.8); MPV 7.7 fL (7.6-11.3); RBC Red Blood Cell Count 5.41 M/uL (4.33-5.43)
[2019-05-31 18:34] LABS: Urine Blood NEGATIVE (NEG); Urine Glucose NEGATIVE (NEG); Urine Protein NEGATIVE (NEG); Urine Specific Gravity 1.025 (1.005-1.030)
--- NOTE | 2019-05-31 19:20 | EDPHYS ---
Physician Documentation [facility] Name: Deacon Howe Jr Age: 83 yrs Sex: Male : 1935 Arrival Date: 05/31/2019 Time: 17:04 Bed 19 Private MD: ED Physician Gato Rodriguez HPI: 05/30 17:08 This 83 yrs old Black Male presents to ER via EMS with complaints of Abdominal Pain. la1 17:08 The patient presents with abdominal pain in the lower abdomen. Onset: The la1 symptoms/episode began/occurred yesterday. The symptoms do not radiate. Associated signs and symptoms: Pertinent positives: nausea, vomiting. The symptoms are described as achy. Severity of pain: At its worst the pain was moderate. The patient has experienced similar episodes in the past. Historical: - Allergies: 17:07 NKDA; ss - PMHx: 17:07 Chronic pain; colon cancer; Hepatitis; HIV; Hypertension; ss - PSHx: 17:07 Cholecystectomy; hip surgery; eye surgery; ss - Immunization history:: Adult Immunizations up to date. - Social history:: Smoking status: Patient reports the use of cigarette tobacco products, 4-5 cigarettes/ day. ROS: 17:09 Constitutional: Negative for fever, chills, and weight loss, Eyes: Negative for injury, la1 pain, redness, and discharge, ENT: Negative for injury, pain, and discharge, Neck: Negative for injury, pain, and swelling, Cardiovascular: Negative for chest pain, palpitations, and edema, Respiratory: Negative for shortness of breath, cough, wheezing, and pleuritic chest pain, Back: Negative for injury and pain, : Negative for injury, bleeding, discharge, and swelling, MS/Extremity: Negative for injury and deformity, Neuro: Negative for headache, weakness, numbness, tingling, and seizure. 17:09 Abdomen/GI: Positive for abdominal pain, nausea, vomiting. Exam: 17:10 Constitutional: This is a well developed, well nourished patient who is awake, alert, la1 and in no acute distress. Head/Face: Normocephalic, atraumatic. Eyes: Pupils equal round and reactive to light, extra-ocular motions intact. Neck: Trachea midline, Supple, full range of motion without nuchal rigidity, or vertebral point tenderness. No Meningismus. Chest/axilla: Normal chest wall appearance and motion. Nontender with no deformity. No lesions are appreciated. Cardiovascular: Regular rate and rhythm with a normal S1 and S2. Respiratory: Lungs have equal breath sounds bilaterally, clear to auscultation Abdomen/GI: Soft, non-tender, with normal bowel sounds. No distension MS/ Extremity: Pulses equal, no cyanosis. Neurovascular intact. Full, normal range of motion. Vital Signs: 17:05 BP 147 / 94; Pulse 76; Resp 18; Temp 97.6(TE); Pulse Ox 100% on R/A; Weight 68.04 kg; ss Height 6 ft. 2 in. (187.96 cm); Pain 8/10; 19:38 BP 135 / 78; Pulse 80; Resp 18; Temp 97.5; Pulse Ox 100% on R/A; mg2 17:05 Body Mass Index 19.26 (68.04 kg, 187.96 cm) ss MDM: 17:08 Patient medically screened. la1 19:18 Data reviewed: vital signs, nurses notes, lab test result(s), and as a result, I will la1 discharge patient. Data interpreted: Pulse oximetry: on room air. Counseling: I had a detailed discussion with the patient and/or guardian regarding: the historical points, exam findings, and any diagnostic results supporting the discharge/admit diagnosis, lab results, the need for outpatient follow up, a family practitioner, to return to the emergency department if symptoms worsen or persist or if there are any questions or concerns that arise at home. Special discussion: Based on the patient's Hx, exam, and Dx evaluation, there is no indication for emergent surgery or inpatient Tx. It is understood by the patient/guardian that if the Sx's persist or worsen they need to return immediately for re-evaluation. 05/30 17:06 Order name: Lipase; Complete Time: 18:15 la1 05/30 17:06 Order name: Basic Metabolic Panel; Complete Time: 18:15 la1 05/30 17:06 Order name: CBC with Diff; Complete Time: 18:15 la1 18 17:06 Order name: UDS la1 05/30 18:28 Order name: Urine Dipstick--Ancillary (enter results); Complete Time: 18:48 bd 05/30 17:06 Order name: IV Saline Lock; Complete Time: 17:38 la1 05/30 17:06 Order name: Labs collected and sent; Complete Time: 17:38 la1 Administered Medications: 17:38 Drug: NS 0.9% 1000 ml Route: IV; Rate: 1000 ml; Site: Other; [facility] 18:30 Follow up: Response: No adverse reaction; IV Status: Completed infusion; IV Intake: [facility] 1000ml 17:38 Drug: Zofran (Ondansetron) 4 mg Route: IVP; Site: Other; [facility] 19:08 Follow up: Response: No adverse reaction jl7 17:38 Drug: Pepcid 20 mg Route: IVP; Site: Other; [facility] 19:08 Follow up: Response: No adverse reaction [facility] Disposition: 05/31 07:30 Co-signature as Attending Physician, Gato Rodriguez MD I agree with the assessment and kdr plan of care. Disposition: 05/31/19 19:19 Discharged to Home. Impression: Other abdominal pain. - Condition is Stable. - Discharge Instructions: Abdominal Pain, Adult. - Medication Reconciliation Form, Thank You Letter form. - Follow up: Private Physician; When: 2 - 3 days; Reason: Recheck today's complaints, Re-evaluation by your physician. - Problem is new. - Symptoms have improved. Signatures: Dispatcher [employer] EDMS Gato Rodriguez MD MD [facility] Tea Jo RN RN ss Crow Her, HR REPRESENTATIVE-C HR REPRESENTATIVE-Cla1 Skye Gore RN RN jl7 Henrry Graf RN RN mg2 Corrections: (The following items were deleted from the chart) 05/30 19:40 19:19 05/31/2019 19:19 Discharged to Home. Impression: Other abdominal pain. Condition mg2 is Stable. Forms are Medication Reconciliation Form, Thank You Letter, Antibiotic Education, Prescription Opioid Use. Follow up: Private Physician; When: 2 - 3 days; Reason: Recheck today's complaints, Re-evaluation by your physician. Problem is new. Symptoms have improved. la1
--- NOTE | 2019-05-31 19:20 | ER ---
Nurse's Notes [facility] Name: Deacon Howe Jr Age: 83 yrs Sex: Male : 1935 Arrival Date: 05/31/2019 Time: 17:04 Bed 19 Private MD: Diagnosis: Other abdominal pain Presentation: 05/30 17:05 Chief complaint: Patient states: abd pain and R flank pain that began at 0900 this AM. ss Coronavirus screen: The patient has NOT traveled to a country currently being monitored by the [facility] within the last 14 days. Proceed with normal triage procedures. Ebola Screen: Patient denies exposure to infectious person. Patient denies travel to an Ebola-affected area in the 21 days before illness onset. Initial Sepsis Screen: Does the patient meet any 2 criteria? No. Patient's initial sepsis screen is negative. Does the patient have a suspected source of infection? No. Patient's initial sepsis screen is negative. Risk Assessment: Do you want to hurt yourself or someone else? Patient reports no desire to harm self or others. 17:05 Method Of Arrival: EMS: [facility] 17:05 Acuity: ALIN 3 17:44 Onset of symptoms was May 31, 2019. jl7 Historical: - Allergies: 17:07 NKDA; ss - PMHx: 17:07 Chronic pain; colon cancer; Hepatitis; HIV; Hypertension; ss - PSHx: 17:07 Cholecystectomy; hip surgery; eye surgery; ss - Immunization history:: Adult Immunizations up to date. - Social history:: Smoking status: Patient reports the use of cigarette tobacco products, 4-5 cigarettes/ day. Screenin:39 Abuse screen: Denies threats or abuse. Denies injuries from another. Nutritional jl7 screening: No deficits noted. Tuberculosis screening: No symptoms or risk factors identified. Fall Risk IV access (20 points). Total Pedroza Fall Scale indicates No Risk (0-24 pts). Assessment: 17:39 General: Appears in no apparent distress. uncomfortable, Behavior is calm, cooperative. jl7 Pain: Complains of pain in right upper quadrant and right lower quadrant Pain currently is 8 out of 10 on a pain scale. Neuro: Level of Consciousness is awake, alert, obeys commands, Oriented to person, place, time, situation. Cardiovascular: Patient's skin is warm and dry. Respiratory: Airway is patent Respiratory effort is even, unlabored, Respiratory pattern is regular, symmetrical. GI: Abdomen is flat, non-distended, Bowel sounds present X 4 quads. Abdomen is tender to palpation in right upper quadrant and right lower quadrant. Derm: Skin is pink, warm \T\ dry. 19:30 Reassessment: Patient denies pain at this time. Patient states feeling better. mg2 Vital Signs: 17:05 BP 147 / 94; Pulse 76; Resp 18; Temp 97.6(TE); Pulse Ox 100% on R/A; Weight 68.04 kg; ss Height 6 ft. 2 in. (187.96 cm); Pain 8/10; 19:38 BP 135 / 78; Pulse 80; Resp 18; Temp 97.5; Pulse Ox 100% on R/A; mg2 17:05 Body Mass Index 19.26 (68.04 kg, 187.96 cm) ED Course: 17:04 Patient arrived in ED. ss 17:06 Crow [facility] la1 17:06 Gato Rodriguez MD is Attending Physician. la1 17:06 Triage completed. ss 17:07 Arm band placed on right wrist. ss 17:15 Missed attempt(s): 22 gauge in left forearm. Bleeding controlled, band aid applied, jl7 catheter tip intact. 17:20 Missed attempt(s): 22 gauge in right forearm. Bleeding controlled, band aid applied, jl7 catheter tip intact. 17:30 Initial lab(s) drawn, by mo, sent to lab. Inserted saline lock: 20 gauge in right jl7 ,using aseptic technique. lower leg/ anterior calf Blood collected. 17:38 Skye Gore, RN is Primary Nurse. jl7 17:39 Patient has correct armband on for positive identification. Bed in low position. Call jl7 light in reach. Side rails up X 1. Pulse ox on. NIBP on. Warm blanket given. 19:39 No provider procedures requiring assistance completed. IV discontinued, intact, mg2 bleeding controlled, No redness/swelling at site. Pressure dressing applied. Administered Medications: 17:38 Drug: NS 0.9% 1000 ml Route: IV; Rate: 1000 ml; Site: Other; jl7 18:30 Follow up: Response: No adverse reaction; IV Status: Completed infusion; IV Intake: jl7 1000ml 17:38 Drug: Zofran (Ondansetron) 4 mg Route: IVP; Site: Other; jl7 19:08 Follow up: Response: No adverse reaction jl7 17:38 Drug: Pepcid 20 mg Route: IVP; Site: Other; jl7 19:08 Follow up: Response: No adverse reaction jl7 Intake: 18:30 IV: 1000ml; Total: 1000ml. jl7 Outcome: 19:19 Discharge ordered by MD. solorzano 19:39 Discharged to home via wheelchair. mg2 19:39 Condition: stable 19:39 Discharge instructions given to patient, Instructed on discharge instructions, Demonstrated understanding of instructions, follow-up care. 19:40 Patient left the ED. mg2 Signatures: Tea Jo RN RN ss Crow Her, DELINQUENT TAX COLLECTION ASSISTANT-C DELINQUENT TAX COLLECTION ASSISTANT-Cla1 Skye Gore RN RN jl7 Henrry Graf RN RN mg2
[2019-05-31 19:40] LABS: Barbiturates NEGATIVE (NEGATIVE); Benzodiazepines NEGATIVE (NEGATIVE); Cocaine POSITIVE (NEGATIVE); METHAMPHETAM NEGATIVE (NEGATIVE); Methadone NEGATIVE (NEGATIVE); Opiates NEGATIVE (NEGATIVE); Phencyclidine NEGATIVE (NEGATIVE); THC Cannibis NEGATIVE (NEGATIVE)
[2019-05-31 20:02] VITALS: O2SAT 100
[2019-05-31 20:03] VITALS: BP 135/78; TEMP 97.5
== END 2019-05-31 19:40 | disposition home or self-care (01) ==
LOC: ER 17:00
DX: R10.30 Lower abdominal pain, unspecified (principal); R11.2 Nausea with vomiting, unspecified; I10 Essential (primary) hypertension; Z21 Asymptomatic human immunodeficiency virus [HIV] infection status; Z85.038 Personal history of other malignant neoplasm of large intestine; Z72.0 Tobacco use
CPT/HCPCS: 96361; 85025; 80048; 36415; 80307 ×8; 81003; 83690; 96375; 96374; 99284; J7030; J2405

== ENCOUNTER 2019-06-18 13:48 | Emergency (ER) | payer OTHER ==
[2019-06-18] MEDS ORDERED: FAMOTIDINE 20 MG/2 ML VIAL IV ONE (14:36)
[2019-06-18] MEDS ORDERED: KETOROLAC 30 MG/ML INJ ONE (14:36)
[2019-06-18 14:37] LABS: Absolute Lymphocytes (CBC) 1.5 K/uL (0.7-4.9); Basophils % 1.2 % (0-1.3); Hematocrit 48.2 % (39.6-49.0); Lymphocytes % 25.2 % (15.3-44.8); MPV 7.5 fL (7.6-11.3); RBC Red Blood Cell Count 6.08 M/uL (4.33-5.43)
[2019-06-18] MEDS ORDERED: NA CHLORIDE 0.9% 1,000 ML ONE (14:37)
[2019-06-18 15:08] LABS: Urine Blood NEGATIVE (NEG); Urine Glucose NEGATIVE (NEG); Urine Protein 1+ (NEG)
[2019-06-18 15:20] LABS: Bilirubin Direct 0.2 mg/dL (0-0.2); Bilirubin Total 0.4 mg/dL (0.2-1.0); Potassium 4.3 mmol/L (3.5-5.1); Protein, Total 6.8 g/dL (6.4-8.2)
[2019-06-18 15:21] LABS: Albumin 2.9 g/dL (3.4-5.0)
[2019-06-18 15:23] LABS: Barbiturates NEGATIVE (NEGATIVE); Benzodiazepines NEGATIVE (NEGATIVE); Cocaine POSITIVE (NEGATIVE); METHAMPHETAM NEGATIVE (NEGATIVE); Methadone NEGATIVE (NEGATIVE); Opiates NEGATIVE (NEGATIVE); Phencyclidine NEGATIVE (NEGATIVE); THC Cannibis NEGATIVE (NEGATIVE)
--- NOTE | 2019-06-18 15:53 | RAD REPORT ---
EXAM DESCRIPTION: RAD - Chest Single View - 06/18/2019 2:52 pm CLINICAL HISTORY: COUGH Chest pain. COMPARISON: Chest Single View dated 05/12/2019; Chest Single View dated 04/08/2019; Chest Single View dated 06/23/2018; Chest Single View dated 05/27/2018 FINDINGS: Portable technique limits examination quality. Chronic right pleural and parenchymal opacification in the mid lung region is unchanged. Left lung is hyperinflated but grossly clear. The heart is normal in size. Tortuous thoracic aorta. IMPRESSION: Stable chest since 05/12/2019.
--- NOTE | 2019-06-18 16:02 | EDPHYS ---
Physician Documentation [facility] Name: Deacon Howe Jr Age: 83 yrs Sex: Male : 1935 Arrival Date: 06/18/2019 Time: 13:52 Bed 20 Private MD: ED Physician Sp Herron HPI: 06/17 14:12 This 83 yrs old Black Male presents to ER via EMS with complaints of Abdominal Pain. pm1 14:12 The patient presents with abdominal pain in the upper abdomen. Onset: The pm1 symptoms/episode began/occurred 2 day(s) ago. The symptoms do not radiate. Associated signs and symptoms: Pertinent positives: Cough, Pertinent negatives: nausea, vomiting, and diarrhea, chest pain, constipation, fever, shortness of breath. The symptoms are described as sharp. Modifying factors: The symptoms are alleviated by nothing, the symptoms are aggravated by nothing. Severity of pain: in the emergency department the pain is actually worse. The patient has experienced similar episodes in the past, multiple times, and the symptoms today are exactly the same, to prior episodes of abdominal pain associated with drug use. It is unknown whether or not the patient has recently seen a physician. Historical: - Allergies: 14:05 NKDA; bp - Home Meds: 14:05 None [Active]; bp - PMHx: 14:05 Chronic pain; colon cancer; Hepatitis; HIV; Hypertension; bp - Immunization history:: Adult Immunizations unknown. - Social history:: Smoking status: Patient reports the use of cigarette tobacco products, unknown amount Patient uses street drugs, cocaine. ROS: 14:12 Constitutional: Negative for fever, chills, and weight loss, Neck: Negative for injury, pm1 pain, and swelling, Cardiovascular: Negative for chest pain, palpitations, and edema. 14:12 Back: Negative for injury and pain, MS/Extremity: Negative for injury and deformity, Skin: Negative for injury, rash, and discoloration, Neuro: Negative for headache, weakness, numbness, tingling, and seizure. 14:12 Respiratory: Positive for cough, Negative for shortness of breath, sputum production, wheezing. 14:12 Abdomen/GI: Positive for abdominal pain, Negative for nausea, vomiting, and diarrhea, diarrhea, constipation. Exam: 14:12 Constitutional: This is a well developed, well nourished patient who is awake, alert, pm1 and in no acute distress. Head/Face: Normocephalic, atraumatic. Neck: Trachea midline, no thyromegaly or masses palpated, and no cervical lymphadenopathy. Supple, full range of motion without nuchal rigidity, or vertebral point tenderness. No Meningismus. Chest/axilla: Normal chest wall appearance and motion. Nontender with no deformity. No lesions are appreciated. Cardiovascular: Regular rate and rhythm with a normal S1 and S2. No gallops, murmurs, or rubs. No pulse deficits. Respiratory: Lungs have equal breath sounds bilaterally, clear to auscultation and percussion. No rales, rhonchi or wheezes noted. No increased work of breathing, no retractions or nasal flaring. Abdomen/GI: Soft, non-tender, with normal bowel sounds. No distension or tympany. No guarding or rebound. No evidence of tenderness throughout. Back: No spinal tenderness. No costovertebral tenderness. Full range of motion. Skin: Warm, dry with normal turgor. Normal color with no rashes, no lesions, and no evidence of cellulitis. MS/ Extremity: Pulses equal, no cyanosis. Neurovascular intact. Full, normal range of motion. 14:12 Neuro: Exam negative for acute changes, Orientation: is normal, Motor: is normal, moves all fours. Vital Signs: 13:53 BP 141 / 80; Pulse 88; Resp 17 S; Temp 97.9(O); Pulse Ox 98% on R/A; Weight 74.84 kg ca1 (R); Height 6 ft. 2 in. (187.96 cm) (R); Pain 8/10; 14:45 BP 131 / 77; Pulse 81; Resp 16 S; Pulse Ox 99% on R/A; ca1 15:35 BP 156 / 84; Pulse 63; Resp 17 S; Pulse Ox 99% on R/A; ca1 16:30 BP 149 / 82; Pulse 76; Resp 17 S; Pulse Ox 99% on R/A; ca1 13:53 Body Mass Index 21.18 (74.84 kg, 187.96 cm) ca1 MDM: 13:56 Patient medically screened. pm1 16:00 Data reviewed: vital signs. Data interpreted: Pulse oximetry: on room air is 99 %. pm1 Interpretation: normal. Counseling: I had a detailed discussion with the patient and/or guardian regarding: the historical points, exam findings, and any diagnostic results supporting the discharge/admit diagnosis, lab results, radiology results, the need for outpatient follow up, to return to the emergency department if symptoms worsen or persist or if there are any questions or concerns that arise at home. 06/17 14:11 Order name: Basic Metabolic Panel; Complete Time: 15:44 pm1 06/17 14:11 Order name: CBC with Diff; Complete Time: 14:42 pm1 06/17 14:11 Order name: Hepatic Function; Complete Time: 15:44 pm1 06/17 14:11 Order name: Lipase; Complete Time: 15:44 pm1 06/17 14:49 Order name: Urine Drug Screen; Complete Time: 15:44 pm1 06/17 15:02 Order name: Urine Dipstick--Ancillary (enter results); Complete Time: 15:44 eb 06/17 14:11 Order name: IV Saline Lock; Complete Time: 14:24 pm1 06/17 14:11 Order name: Labs collected and sent; Complete Time: 14:24 pm1 06/17 14:11 Order name: Chest Single View XRAY; Complete Time: 15:59 pm1 06/17 14:49 Order name: Urine Dipstick-Ancillary (obtain specimen); Complete Time: 14:58 pm1 Administered Medications: 14:55 Drug: NS 0.9% 1000 ml Route: IV; Rate: 1000 ml; Site: Other; ca1 16:00 Follow up: Response: No adverse reaction; IV Status: Completed infusion ca1 14:56 Drug: TORadol - Ketorolac 15 mg Route: IVP; Site: Other; ca1 16:09 Follow up: Response: No adverse reaction; Pain is decreased ca1 14:59 Drug: Pepcid 20 mg Route: IVP; Site: Other; ca1 16:00 Follow up: Response: No adverse reaction; Pain is decreased ca1 Disposition: 17:04 Co-signature as Attending Physician, Sp Herron MD. rn Disposition: 06/18/19 16:01 Discharged to Home. Impression: Other abdominal pain, Cocaine abuse. - Condition is Stable. - Discharge Instructions: Abdominal Pain, Adult, Stimulant Use Disorder-Cocaine. - Medication Reconciliation Form, Thank You Letter, Antibiotic Education, Prescription Opioid Use form. - Follow up: Emergency Department; When: As needed; Reason: Worsening of condition. Follow up: Private Physician; When: 2 - 3 days; Reason: Recheck today's complaints, Continuance of care, Re-evaluation by your physician. - Problem is new. - Symptoms have improved. Signatures: Dispatcher [employer] EDMS Sp Herron MD MD rn Marinas, Patrick, ULTRASONIC HAND SOLDERER ULTRASONIC HAND SOLDERER pm1 Braeden Farnsworth RN RN bp Acob, Cheryl, RN RN ca1 Corrections: (The following items were deleted from the chart) 17:02 16:01 06/18/2019 16:01 Discharged to Home. Impression: Other abdominal pain; Cocaine bp abuse. Condition is Stable. Forms are Medication Reconciliation Form, Thank You Letter, Antibiotic Education, Prescription Opioid Use. Follow up: Emergency Department; When: As needed; Reason: Worsening of condition. Follow up: Private Physician; When: 2 - 3 days; Reason: Recheck today's complaints, Continuance of care, Re-evaluation by your physician. Problem is new. Symptoms have improved. pm1
--- NOTE | 2019-06-18 16:02 | ER ---
Nurse's Notes [facility] Name: Deacon Howe Jr Age: 83 yrs Sex: Male : 1935 Arrival Date: 06/18/2019 Time: 13:52 Bed 20 Private MD: Diagnosis: Other abdominal pain;Cocaine abuse Presentation: 06/17 13:53 Chief complaint: EMS states: HE HAS HIS REGULAR ABDOMINAL PAIN AGAIN. Coronavirus bp screen: Proceed with normal triage. Ebola Screen: No symptoms or risks identified at this time. Initial Sepsis Screen: Does the patient meet any 2 criteria? No. Patient's initial sepsis screen is negative. Does the patient have a suspected source of infection? No. Patient's initial sepsis screen is negative. Risk Assessment: Do you want to hurt yourself or someone else? Patient reports no desire to harm self or others. Onset of symptoms is unknown. 13:53 Method Of Arrival: EMS: [facility] bp 13:53 Acuity: ALIN 4 bp Triage Assessment: 14:05 General: Appears in no apparent distress. comfortable, Behavior is cooperative, bp appropriate for age, anxious. Pain: Complains of pain in right flank. EENT: No deficits noted. Neuro: No deficits noted. Cardiovascular: No deficits noted. Respiratory: No deficits noted. GI: Reports R FLANK PAIN. : No signs and/or symptoms were reported regarding the genitourinary system. Derm: No deficits noted. Musculoskeletal: No deficits noted. Historical: - Allergies: 14:05 NKDA; bp - Home Meds: 14:05 None [Active]; bp - PMHx: 14:05 Chronic pain; colon cancer; Hepatitis; HIV; Hypertension; bp - Immunization history:: Adult Immunizations unknown. - Social history:: Smoking status: Patient reports the use of cigarette tobacco products, unknown amount Patient uses street drugs, cocaine. Screenin:07 Abuse screen: Denies threats or abuse. Denies injuries from another. Nutritional bp screening: No deficits noted. Tuberculosis screening: No symptoms or risk factors identified. Fall Risk None identified. Assessment: 14:15 General: Appears in no apparent distress. comfortable, Behavior is calm, cooperative, ca1 appropriate for age. Pain: Complains of pain in right flank Pain currently is 8 out of 10 on a pain scale. Pain began 2-3 days ago. Neuro: Level of Consciousness is awake, alert, obeys commands, Oriented to person, place, time, situation, Appropriate for age. Cardiovascular: Heart tones S1 S2 present Capillary refill < 3 seconds Patient's skin is warm and dry. Respiratory: Reports cough that is Airway is patent Respiratory effort is even, unlabored, Respiratory pattern is regular, symmetrical, Breath sounds are clear bilaterally. GI: Abdomen is flat, non-distended, Bowel sounds Abd is soft and non tender X 4 quads. Reports nausea, vomiting. : No signs and/or symptoms were reported regarding the genitourinary system. EENT: No signs and/or symptoms were reported regarding the EENT system. Derm: Skin is intact, with poor turgor Skin is pink, warm \T\ dry. Musculoskeletal: Circulation, motion, and sensation intact. Capillary refill < 3 seconds. 14:59 Reassessment: Patient appears in no apparent distress at this time. Patient and/or ca1 family updated on plan of care and expected duration. Pain level reassessed. Patient is alert, oriented x 3, equal unlabored respirations, skin warm/dry/pink. 15:35 Reassessment: Patient appears in no apparent distress at this time. Patient is alert, ca1 oriented x 3, equal unlabored respirations, skin warm/dry/pink. 16:30 Reassessment: Patient appears in no apparent distress at this time. Patient is alert, ca1 oriented x 3, equal unlabored respirations, skin warm/dry/pink. pt ambulated to the restroom. Vital Signs: 13:53 BP 141 / 80; Pulse 88; Resp 17 S; Temp 97.9(O); Pulse Ox 98% on R/A; Weight 74.84 kg ca1 (R); Height 6 ft. 2 in. (187.96 cm) (R); Pain 8/10; 14:45 BP 131 / 77; Pulse 81; Resp 16 S; Pulse Ox 99% on R/A; ca1 15:35 BP 156 / 84; Pulse 63; Resp 17 S; Pulse Ox 99% on R/A; ca1 16:30 BP 149 / 82; Pulse 76; Resp 17 S; Pulse Ox 99% on R/A; ca1 13:53 Body Mass Index 21.18 (74.84 kg, 187.96 cm) ca1 ED Course: 13:52 Patient arrived in ED. ca1 13:52 Javad, Braeden, MARYANNE is Primary Nurse. bp 13:52 Tessa Jose RN is Primary Nurse. ca1 13:55 Dhruv Richard NP is PHCP. pm1 13:55 Sp Herron MD is Attending Physician. pm1 14:04 Triage completed. bp 14:05 Arm band placed on. bp 14:07 Patient has correct armband on for positive identification. Bed in low position. Call bp light in reach. Side rails up X2. 14:15 Pulse ox on. NIBP on. Warm blanket given. ca1 14:15 Missed attempt(s): 20 gauge in left forearm. Bleeding controlled, band aid applied, ca1 catheter tip intact. 14:24 No provider procedures requiring assistance completed. Initial lab(s) drawn, by de, ca1 sent to lab. Inserted saline lock: 22 gauge in right forearm, using aseptic technique. Blood collected. 14:52 Chest Single View XRAY In Process Unspecified. EDMS 14:54 Lab(s) recollected, by labor arbitrator hearing office, sent to lab. Inserted saline lock: 20 gauge in right ca1 ,using aseptic technique. leg Blood collected. 16:48 IV discontinued, intact, bleeding controlled, No redness/swelling at site. Pressure ca1 dressing applied. Administered Medications: 14:55 Drug: NS 0.9% 1000 ml Route: IV; Rate: 1000 ml; Site: Other; ca1 16:00 Follow up: Response: No adverse reaction; IV Status: Completed infusion ca1 14:56 Drug: TORadol - Ketorolac 15 mg Route: IVP; Site: Other; ca1 16:09 Follow up: Response: No adverse reaction; Pain is decreased ca1 14:59 Drug: Pepcid 20 mg Route: IVP; Site: Other; ca1 16:00 Follow up: Response: No adverse reaction; Pain is decreased ca1 Outcome: 16:01 Discharge ordered by MD. pm1 16:48 Discharged to home via wheelchair. ca1 16:48 Condition: good 16:48 Discharge instructions given to patient, Instructed on discharge instructions, follow up and referral plans. Demonstrated understanding of instructions, follow-up care. 17:02 Patient left the ED. bp Signatures: Dispatcher [employer] EDMS Dhruv Richard NP BAD CREDIT COLLECTOR pm1 Braeden Farnsworth RN RN bp Tessa Jose RN RN ca1 Corrections: (The following items were deleted from the chart) 15:00 15:00 Inserted saline lock: 20 gauge in right ,using aseptic technique. leg Blood ca1 collected. ca1 15:00 15:00 Lab(s) recollected, by me, sent to lab. ca1 ca1
[2019-06-18 17:39] VITALS: TEMP 97.9
[2019-06-18 17:41] VITALS: O2SAT 99
[2019-06-18 17:43] VITALS: BP 149/82
== END 2019-06-18 17:02 | disposition home or self-care (01) ==
LOC: ER 13:48
DX: R10.9 Unspecified abdominal pain (principal); F14.10 Cocaine abuse, uncomplicated; F17.210 Nicotine dependence, cigarettes, uncomplicated
CPT/HCPCS: 96361; 85025; 80048; 36415; 80076; 80307 ×8; 81003; 83690; 71045; 96375; 96374; 99284; J7030

== ENCOUNTER 2019-06-20 11:08 | Emergency (ER) | payer OTHER ==
[2019-06-20 12:46] VITALS: BP 142/88; TEMP 97.7; O2SAT 100
== END 2019-06-20 12:41 | disposition home or self-care (01) ==
LOC: ER 11:08
DX: M25.551 Pain in right hip (principal); I10 Essential (primary) hypertension; F17.210 Nicotine dependence, cigarettes, uncomplicated; Z21 Asymptomatic human immunodeficiency virus [HIV] infection status; Z85.038 Personal history of other malignant neoplasm of large intestine
CPT/HCPCS: 96372; 99283

== ENCOUNTER 2019-07-09 13:55 | Emergency (ER) | payer OTHER ==
--- NOTE | 2019-07-09 14:21 | EDPHYS ---
Physician Documentation [facility] Name: Deacon Howe Jr Age: 83 yrs Sex: Male : 1935 Arrival Date: 07/09/2019 Time: 13:56 Bed 8 Private MD: ED Physician Vipul Castillo HPI: 07/08 14:24 This 83 yrs old Black Male presents to ER via EMS with complaints of Hip Pain, Back jr8 Pain. 14:24 Onset: The symptoms/episode began/occurred acutely, today. Modifying factors: The jr8 symptoms are alleviated by nothing, the symptoms are aggravated by any movement. Associated signs and symptoms: Pertinent positives: None. Severity of symptoms: At their worst the symptoms were moderate, in the emergency department the symptoms are unchanged. The patient has experienced similar episodes in the past, multiple times, chronically. The patient has been recently seen by a physician: with similar presenting complaints, was given a prescription for pain medications. 14:27 Denies recent fall or trauma . jr8 Historical: - Allergies: 14:02 NKDA; ph - PMHx: 14:02 Chronic pain; colon cancer; Hepatitis; HIV; Hypertension; ph - Immunization history:: Adult Immunizations unknown. - Social history:: Smoking status: Patient reports the use of cigarette tobacco products, 1-2 cigarettes per day. ROS: 14:24 Eyes: Negative for injury, pain, redness, and discharge, ENT: Negative for injury, jr8 pain, and discharge, Neck: Negative for injury, pain, and swelling, Cardiovascular: Negative for chest pain, palpitations, and edema, Respiratory: Negative for shortness of breath, cough, wheezing, and pleuritic chest pain, Abdomen/GI: Negative for abdominal pain, nausea, vomiting, diarrhea, and constipation, Back: Negative for injury and pain, Skin: Negative for injury, rash, and discoloration, Neuro: Negative for headache, weakness, numbness, tingling, and seizure. 14:24 MS/extremity: Positive for pain, tenderness, of the right lower back and hip. Exam: 14:24 Eyes: Pupils equal round and reactive to light, extra-ocular motions intact. Lids and jr8 lashes normal. Conjunctiva and sclera are non-icteric and not injected. Cornea within normal limits. Periorbital areas with no swelling, redness, or edema. ENT: Nares patent. No nasal discharge, no septal abnormalities noted. Tympanic membranes are normal and external auditory canals are clear. Oropharynx with no redness, swelling, or masses, exudates, or evidence of obstruction, uvula midline. Mucous membranes moist. Neck: Trachea midline, no thyromegaly or masses palpated, and no cervical lymphadenopathy. Supple, full range of motion without nuchal rigidity, or vertebral point tenderness. No Meningismus. Cardiovascular: Regular rate and rhythm with a normal S1 and S2. No gallops, murmurs, or rubs. Normal PMI, no JVD. No pulse deficits. Respiratory: Lungs have equal breath sounds bilaterally, clear to auscultation and percussion. No rales, rhonchi or wheezes noted. No increased work of breathing, no retractions or nasal flaring. Abdomen/GI: Soft, non-tender, with normal bowel sounds. No distension or tympany. No guarding or rebound. No evidence of tenderness throughout. Back: No spinal tenderness. No costovertebral tenderness. Full range of motion. Skin: Warm, dry with normal turgor. Normal color with no rashes, no lesions, and no evidence of cellulitis. Neuro: Awake and alert, GCS 15, oriented to person, place, time, and situation. Cranial nerves II-XII grossly intact. Motor strength 5/5 in all extremities. Sensory grossly intact. Cerebellar exam normal. Normal gait. 14:24 Musculoskeletal/extremity: Extremities: grossly normal except: noted in the right hip: pain, tenderness, ROM: intact in all extremities, full active range of motion, full passive range of motion, limited active range of motion due to pain, in the right leg, limited passive range of motion due to pain, in the right leg, Circulation is intact in all extremities. Pulses: noted to be 2+ in the right radial artery, right femoral artery, right dorsalis pedis artery, left radial artery, left femoral artery and left dorsalis pedis artery, Sensation intact. Vital Signs: 13:57 BP 128 / 84; Pulse 74; Resp 16; Temp 98.2; Pulse Ox 100% on R/A; Weight 79.38 kg; ph 15:07 BP 127 / 86; Pulse 71; Resp 18; Temp 98.0; Pulse Ox 99% on R/A; ph MDM: 13:57 Patient medically screened. jr8 14:19 Data reviewed: vital signs, nurses notes, and as a result, I will discharge patient. jr8 Data interpreted: Pulse oximetry: on room air is 100 %. Interpretation: normal. Counseling: I had a detailed discussion with the patient and/or guardian regarding: the historical points, exam findings, and any diagnostic results supporting the discharge/admit diagnosis, the need for outpatient follow up, a family practitioner, to return to the emergency department if symptoms worsen or persist or if there are any questions or concerns that arise at home. Administered Medications: 14:45 Drug: TORadol 30 mg Route: IM; Site: right deltoid; ph 15:07 Follow up: Response: No adverse reaction ph Disposition: 07/09 10:03 Co-signature as Attending Physician, Vipul Castillo MD I agree with the assessment and martin plan of care. Disposition: 07/09/19 14:19 Discharged to Home. Impression: Pain in right hip. - Condition is Stable. - Discharge Instructions: Joint Pain, Hip Pain. - Medication Reconciliation Form, Thank You Letter, Antibiotic Education, Prescription Opioid Use form. - Follow up: Private Physician; When: 2 - 3 days; Reason: Recheck today's complaints, Continuance of care, Re-evaluation by your physician. - Problem is new. - Symptoms have improved. Signatures: Vipul Castillo MD MD cha Roszak, Josh, PA PA jr8 Callie Hernandez RN RN ph Corrections: (The following items were deleted from the chart) 07/08 15:07 14:19 07/09/2019 14:19 Discharged to Home. Impression: Pain in right hip. Condition is ph Stable. Forms are Medication Reconciliation Form, Thank You Letter, Antibiotic Education, Prescription Opioid Use. Follow up: Private Physician; When: 2 - 3 days; Reason: Recheck today's complaints, Continuance of care, Re-evaluation by your physician. Problem is new. Symptoms have improved. jr8
--- NOTE | 2019-07-09 14:21 | ER ---
Nurse's Notes [facility] Name: Deacon Howe Jr Age: 83 yrs Sex: Male : 1935 Arrival Date: 07/09/2019 Time: 13:56 Bed 8 Private MD: Diagnosis: Pain in right hip Presentation: 07/08 13:57 Chief complaint: EMS states: C/O R low back/side pain, states, " I sleep in a van and ph it's uncomfortable." pt seen and evaluated in ED multiple times for same complaint, has been prescribed pain medication in the past but states that he has been unable to get it filled. Coronavirus screen: Patient denies a cough. Patient denies shortness of breath or difficulty breathing. Patient denies measured and/or subjective temperature greater than 100.4F prior to today's visit. Patient denies travel on a cruise ship or to a country the [facility] currently lists as an affected area. Patient denies contact with known and/or suspected case of COVID-19. Ebola Screen: No symptoms or risks identified at this time. Initial Sepsis Screen: Does the patient meet any 2 criteria? No. Patient's initial sepsis screen is negative. Does the patient have a suspected source of infection? No. Patient's initial sepsis screen is negative. Risk Assessment: Do you want to hurt yourself or someone else? Patient reports no desire to harm self or others. Onset of symptoms was July 09, 2019. 13:57 Method Of Arrival: EMS: [facility] ph 13:57 Acuity: ALIN 4 ph Historical: - Allergies: 14:02 NKDA; ph - PMHx: 14:02 Chronic pain; colon cancer; Hepatitis; HIV; Hypertension; ph - Immunization history:: Adult Immunizations unknown. - Social history:: Smoking status: Patient reports the use of cigarette tobacco products, 1-2 cigarettes per day. Screenin:02 Abuse screen: Denies threats or abuse. Denies injuries from another. Nutritional ph screening: No deficits noted. Tuberculosis screening: No symptoms or risk factors identified. Fall Risk None identified. Assessment: 14:04 General: Appears in no apparent distress. comfortable, slender, Behavior is calm, ph cooperative, appropriate for age, Denies fever, feeling ill. Pain: Complains of pain in right low back Pain radiates to right side. Neuro: Level of Consciousness is awake, alert, obeys commands, Oriented to person, place, time, situation. Cardiovascular: Capillary refill < 3 seconds in bilateral fingers Patient's skin is warm and dry. Respiratory: Airway is patent Respiratory effort is even, unlabored, Respiratory pattern is regular, symmetrical. Derm: Skin is intact, is healthy with good turgor, Skin is pink, warm \\T\\ dry. Musculoskeletal: Circulation, motion, and sensation intact. Range of motion: intact in all extremities. Vital Signs: 13:57 BP 128 / 84; Pulse 74; Resp 16; Temp 98.2; Pulse Ox 100% on R/A; Weight 79.38 kg; ph 15:07 BP 127 / 86; Pulse 71; Resp 18; Temp 98.0; Pulse Ox 99% on R/A; ph ED Course: 13:56 Patient arrived in ED. ph 13:57 [facility]omenico Sierra [facility]. jr8 13:57 Vipul Castillo MD is Attending Physician. jr8 14:01 Triage completed. ph 14:03 Patient has correct armband on for positive identification. Bed in low position. Call ph light in reach. Side rails up X 1. Pulse ox on. NIBP on. Warm blanket given. Pillow given. Head of bed elevated. 14:04 Arm band placed on Patient placed in an exam room. ph 14:06 No provider procedures requiring assistance completed. ph 14:38 Leesa Clay RN is Primary Nurse. hb 15:05 Callie Hernandez RN is Primary Nurse. ph 15:07 IV discontinued, intact, bleeding controlled, No redness/swelling at site. Pressure ph dressing applied. Administered Medications: 14:45 Drug: TORadol 30 mg Route: IM; Site: right deltoid; ph 15:07 Follow up: Response: No adverse reaction ph Outcome: 14:19 Discharge ordered by . jr8 15:07 Discharged to home via wheelchair. ph 15:07 Condition: good 15:07 Discharge instructions given to patient, Instructed on discharge instructions, follow up and referral plans. Demonstrated understanding of instructions, follow-up care. 15:07 Patient left the ED. ph Signatures: Domenico Sierra PA PA jr8 Callie Hernandez RN RN ph Clay, Leesa, RN RN hb
[2019-07-09] MEDS ORDERED: KETOROLAC 30 MG/ML INJ ONE (14:47)
[2019-07-09 15:14] VITALS: BP 127/86; TEMP 98; O2SAT 99
== END 2019-07-09 15:07 | disposition home or self-care (01) ==
LOC: ER 13:55
DX: M25.551 Pain in right hip (principal); M54.5 Low back pain; F17.210 Nicotine dependence, cigarettes, uncomplicated; I10 Essential (primary) hypertension; Z21 Asymptomatic human immunodeficiency virus [HIV] infection status; Z85.038 Personal history of other malignant neoplasm of large intestine
CPT/HCPCS: 96372; 99284

== ENCOUNTER 2019-07-15 16:07 | Emergency (ER) | payer OTHER ==
[2019-07-15] MEDS ORDERED: NA CHLORIDE 0.9% 500 ML ONE (16:41)
[2019-07-15 17:02] LABS: Absolute Lymphocytes (CBC) 0.9 K/uL (0.7-4.9); Basophils % 1.1 % (0-1.3); Hematocrit 49.1 % (39.6-49.0); Lymphocytes % 23.4 % (15.3-44.8); MPV 7.4 fL (7.6-11.3); RBC Red Blood Cell Count 6.18 M/uL (4.33-5.43)
[2019-07-15 17:09] LABS: Albumin 3.5 g/dL (3.4-5.0); Bilirubin Direct 0.2 mg/dL (0-0.2); Bilirubin Total 0.7 mg/dL (0.2-1.0); Potassium 4.3 mmol/L (3.5-5.1); Protein, Total 7.5 g/dL (6.4-8.2)
[2019-07-15 17:25] LABS: Blood Morphology Comment NOT SEEN (NOT SEEN); Platelet Estimate ADEQ; Urine White Blood Cell Casts OK
--- NOTE | 2019-07-15 17:34 | EDPHYS ---
Physician Documentation [facility] Name: Deacon Howe Jr Age: 83 yrs Sex: Male : 1935 Arrival Date: 07/15/2019 Time: 16:17 Bed 7 Private MD: ED Physician Sp Herron HPI: 07/14 17:28 This 83 yrs old Black Male presents to ER via EMS with complaints of Abdominal Pain. rn 17:28 The patient presents with abdominal pain in the epigastric area. Onset: The rn symptoms/episode began/occurred at an unknown time. The symptoms do not radiate. Associated signs and symptoms: Pertinent positives: nausea and vomiting, diarrhea, Pertinent negatives: blood in stools, fever, shortness of breath, testicular pain. The symptoms are described as achy, crampy. Modifying factors: The symptoms are alleviated by nothing, the symptoms are aggravated by nothing. Severity of pain: At its worst the pain was moderate in the emergency department the pain has improved. The patient has experienced similar episodes in the past, chronically. Reports "still having abdominal and back pain", reports seen here last week for same thing, states just needs pain meds. No trauma. Reports assoc with nausea/vomiting/diarrhea. No blood in stools. No chest pain/sob. . Historical: - Allergies: 16:05 NKDA; rb1 - PMHx: 16:05 Chronic pain; colon cancer; Hepatitis; HIV; Hypertension; rb1 - Social history:: Smoking status: Patient reports the use of cigarette tobacco products, smokes one-half pack cigarettes per day. - Family history:: not pertinent. - Hospitalizations: : No recent hospitalization is reported. ROS: 17:28 Constitutional: Negative for fever, chills, and weight loss, Eyes: Negative for injury, rn pain, redness, and discharge, Neck: Negative for injury, pain, and swelling, Cardiovascular: Negative for chest pain, palpitations, and edema, Respiratory: Negative for shortness of breath, cough, wheezing, and pleuritic chest pain, Abdomen/GI: Negative for constipation MS/Extremity: Negative for injury and deformity, Skin: Negative for injury, rash, and discoloration, Neuro: Negative for headache, numbness, tingling, and seizure. Exam: 17:28 Constitutional: This is a well developed, well nourished patient who is awake, alert, rn and in no acute distress. Head/Face: Normocephalic, atraumatic. ENT: dry MM Cardiovascular: Regular rate and rhythm. No pulse deficits. Respiratory: Speaking full sentences. No increased work of breathing, no retractions or nasal flaring. Abdomen/GI: soft, non-tender, no masses, no peritoneal signs Skin: Warm, dry MS/ Extremity: Pulses equal, no cyanosis. Neurovascular intact. Full, normal range of motion. Equal circumference. Neuro: Awake and alert, GCS 15. Motor strength 5/5 in all extremities. Sensory grossly intact. Cerebellar exam normal. Vital Signs: 16:05 BP 122 / 78; Pulse 80; Resp 17; Temp 97.9(O); Pulse Ox 98% on R/A; Weight 74.84 kg (R); rb1 Height 6 ft. 2 in. (187.96 cm) (R); Pain 9/10; 17:15 BP 162 / 93; Pulse 75; Resp 19; Pulse Ox 100% on R/A; rb1 16:05 Body Mass Index 21.18 (74.84 kg, 187.96 cm) rb1 MDM: 16:18 Patient medically screened. rn 17:32 Differential diagnosis: non-specific abd pain, chronic abd pain, cramping, dehydration rn enteritis. Data reviewed: vital signs, nurses notes, lab test result(s), and as a result, I will discharge patient. Counseling: I had a detailed discussion with the patient and/or guardian regarding: the historical points, exam findings, and any diagnostic results supporting the discharge/admit diagnosis, lab results, the need for outpatient follow up, to return to the emergency department if symptoms worsen or persist or if there are any questions or concerns that arise at home. Response to treatment: the patient's symptoms have mildly improved after treatment, and as a result, I will discharge patient. Special discussion: Based on the patient's Hx, exam, and Dx evaluation, there is no indication for emergent surgery or inpatient Tx. It is understood by the patient/guardian that if the Sx's persist or worsen they need to return immediately for re-evaluation. I discussed with the patient/guardian in detail that at this point there is no indication for admission to the hospital. It is understood, however, that if the symptoms persist or worsen the patient needs to return immediately for re-evaluation. ED course: Pt here with chronic abd pain, labs unremarkable, vitals normal, will treat pain and symptoms along with fluids and dc home with return precautions. . 07/14 16:20 Order name: Basic Metabolic Panel; Complete Time: 17: rn 07/14 16:20 Order name: CBC with Diff; Complete Time: 17:26 rn 07/14 16:20 Order name: Creatinine for Radiology; Complete Time: 17: rn 07/14 16:20 Order name: Hepatic Function; Complete Time: 17: rn 07/14 16:20 Order name: Lipase; Complete Time: 17: rn 07/14 17:26 Order name: CBC Smear Scan; Complete Time: 17: EDMO 07/14 16:20 Order name: IV Saline Lock; Complete Time: 16:44 rn 07/14 16:20 Order name: Labs collected and sent; Complete Time: 16:44 rn Administered Medications: 16:41 Drug: NS 0.9% 500 ml Route: IV; Rate: bolus; Site: right forearm; ls4 17:36 Drug: [place] 10 mg-325 mg 1 tabs Route: PO; rb1 17:50 Follow up: Response: No adverse reaction rb1 17:36 Drug: LoMOTIL 2 tabs Route: PO; rb1 17:50 Follow up: Response: No adverse reaction rb1 Disposition: 07/15/19 17:34 Discharged to Home. Impression: Unspecified abdominal pain, Dehydration. - Condition is Stable. - Discharge Instructions: Abdominal Pain, Adult, Dehydration, Adult. - Prescriptions for Zofran ODT 4 mg Oral tablet,disintegrating - place 1 tablet by TRANSLINGUAL route every 8 hours As needed; 15 tablet. - Medication Reconciliation Form, Thank You Letter, Antibiotic Education, Prescription Opioid Use form. - Follow up: Private Physician; When: As needed; Reason: Recheck today's complaints, Re-evaluation by your physician. - Problem is chronic. - Symptoms have improved. Signatures: Dispatcher [employer] EDMS Sp Herron MD MD rn Calderon, Audri, RN RN aa5 Lisa Marina, RN RN rb1 Lynn Thurston RN RN ls4 Corrections: (The following items were deleted from the chart) 17:54 17:34 07/15/2019 17:34 Discharged to Home. Impression: Unspecified abdominal pain; aa5 Dehydration. Condition is Stable. Forms are Medication Reconciliation Form, Thank You Letter, Antibiotic Education, Prescription Opioid Use. Follow up: Private Physician; When: As needed; Reason: Recheck today's complaints, Re-evaluation by your physician. Problem is chronic. Symptoms have improved. rn
--- NOTE | 2019-07-15 17:34 | ER ---
Nurse's Notes [facility] Name: Deacon Howe Jr Age: 83 yrs Sex: Male : 1935 Arrival Date: 07/15/2019 Time: 16:17 Bed 7 Private MD: Diagnosis: Unspecified abdominal pain;Dehydration Presentation: 07/14 16:05 Chief complaint: EMS states: Pt. c/o of pain on the right side and abdominal pain. rb1 Vital signs are stable. Coronavirus screen: Proceed with normal triage. Ebola Screen: Patient negative for fever greater than or equal to 101.5 degrees Fahrenheit, and additional compatible Ebola Virus Disease symptoms Patient denies travel to an Ebola-affected area in the 21 days before illness onset. Initial Sepsis Screen: Does the patient meet any 2 criteria? No. Patient's initial sepsis screen is negative. Does the patient have a suspected source of infection? No. Patient's initial sepsis screen is negative. Risk Assessment: Do you want to hurt yourself or someone else? Patient reports no desire to harm self or others. Onset of symptoms was July 14, 2019. 16:05 Method Of Arrival: EMS: [facility] 16:05 Acuity: ALIN 3 rb1 Triage Assessment: 16:05 General: Appears in no apparent distress. comfortable, slender, Behavior is calm, rb1 cooperative. Pain: Pain radiates to right side Pain currently is 9 out of 10 on a pain scale. Pain began last night, but pt. reports that he was here seven days ago for the same complaint. Neuro: Level of Consciousness is awake, alert, obeys commands, Oriented to person, place, time, situation. Cardiovascular: Capillary refill < 3 seconds. Respiratory: Airway is patent Respiratory effort is even, unlabored, Respiratory pattern is regular, symmetrical. GI: Reports diarrhea, nausea, vomiting, since last night. : No signs and/or symptoms were reported regarding the genitourinary system. Derm: Skin is dry, Skin is normal, Skin temperature is warm. 16:05 Neuro: Reports weakness in generalized. rb1 Historical: - Allergies: 16:05 NKDA; rb1 - PMHx: 16:05 Chronic pain; colon cancer; Hepatitis; HIV; Hypertension; rb1 - Social history:: Smoking status: Patient reports the use of cigarette tobacco products, smokes one-half pack cigarettes per day. - Family history:: not pertinent. - Hospitalizations: : No recent hospitalization is reported. Screenin:05 Abuse screen: Denies threats or abuse. Nutritional screening: pt. reports that he has rb1 been eating [employer] and eating alright.. Tuberculosis screening: No symptoms or risk factors identified. Assessment: 16:05 General: See triage assessment. rb1 16:05 GI: Bowel sounds present X 4 quads. Abdomen is tender to palpation in epigastric area, rb1 right upper quadrant and right lower quadrant. 17:05 Reassessment: Patient appears in no apparent distress at this time. Patient and/or rb1 family updated on plan of care and expected duration. Pain level reassessed. Patient is alert, oriented x 3, equal unlabored respirations, skin warm/dry/pink. 17:42 Reassessment: Left a voicemail for pt. stacey Marcie at [phone], and informed her rb1 that the pt. was here and being discharged and needed transportation home. Vital Signs: 16:05 BP 122 / 78; Pulse 80; Resp 17; Temp 97.9(O); Pulse Ox 98% on R/A; Weight 74.84 kg (R); rb1 Height 6 ft. 2 in. (187.96 cm) (R); Pain 9/10; 17:15 BP 162 / 93; Pulse 75; Resp 19; Pulse Ox 100% on R/A; rb1 16:05 Body Mass Index 21.18 (74.84 kg, 187.96 cm) rb1 ED Course: 16:05 Arm band placed on right wrist. rb1 16:05 Patient has correct armband on for positive identification. Bed in low position. Call rb1 light in reach. Side rails up X 1. Pulse ox on. NIBP on. 16:17 Patient arrived in ED. aa5 16:18 Sp Herron MD is Attending Physician. rn 16:22 Triage completed. rb1 16:33 Lisa Marina, RN is Primary Nurse. rb1 16:40 Initial lab(s) drawn, by ut, sent to lab. Inserted saline lock: 20 gauge in right ls4 wrist, using aseptic technique. Patient maintains SpO2 saturation greater than 95% on room air. 16:44 No provider procedures requiring assistance completed. ls4 17:54 IV discontinued, intact, bleeding controlled, No redness/swelling at site. Pressure rb1 dressing applied. Administered Medications: 16:41 Drug: NS 0.9% 500 ml Route: IV; Rate: bolus; Site: right forearm; ls4 17:36 Drug: [place] 10 mg-325 mg 1 tabs Route: PO; rb1 17:50 Follow up: Response: No adverse reaction rb1 17:36 Drug: LoMOTIL 2 tabs Route: PO; rb1 17:50 Follow up: Response: No adverse reaction rb1 Outcome: 17:34 Discharge ordered by MD. rn 17:54 Patient left the ED. aa5 17:54 Discharged to home via wheelchair. rb1 17:54 Condition: stable 17:54 Discharge instructions given to patient, Instructed on discharge instructions, follow up and referral plans. medication usage, Demonstrated understanding of instructions, follow-up care, medications, Prescriptions given X 1. Signatures: Sp Herron MD MD rn Calderon, Audri RN RN aa5 Lisa Marina RN RN rb1 Lynn Thurston RN RN ls4 Corrections: (The following items were deleted from the chart) 16:27 16:27 GI: rb1 rb1 19:18 17:54 Discharge instructions given to patient, Instructed on discharge instructions, rb1 follow up and referral plans. Demonstrated understanding of instructions, follow-up care, rb1
[2019-07-15] MEDS ORDERED: HYDROCODONE/APAP 10/325 TAB ONE (17:39)
[2019-07-15] MEDS ORDERED: DIPHENOX/ATROP SULF 1 TAB PO ONE (17:41)
[2019-07-15 18:18] VITALS: BP 162/93; O2SAT 100
== END 2019-07-15 17:54 | disposition home or self-care (01) ==
LOC: ER 16:07
DX: E86.0 Dehydration (principal); I10 Essential (primary) hypertension; F17.210 Nicotine dependence, cigarettes, uncomplicated; Z21 Asymptomatic human immunodeficiency virus [HIV] infection status; Z85.038 Personal history of other malignant neoplasm of large intestine
CPT/HCPCS: 85025; 80048; 36415; 80076; 83690; 99284; J7040

== ENCOUNTER 2019-08-01 06:55 | Emergency (ER) | payer OTHER ==
[2019-08-01 08:54] LABS: Albumin 3.5 g/dL (3.4-5.0); Bilirubin Direct 0.4 mg/dL (0-0.2); Potassium 4.1 mmol/L (3.5-5.1)
[2019-08-01 08:57] LABS: Basophils % 1.1 % (0-1.3); Hematocrit 50.9 % (39.6-49.0); Lymphocytes % 22.1 % (15.3-44.8); MPV 7.6 fL (7.6-11.3); RBC Red Blood Cell Count 6.36 M/uL (4.33-5.43)
--- NOTE | 2019-08-01 09:54 | RAD REPORT ---
EXAM DESCRIPTION: CT - Chest Abd Pelvis Wo Con - 08/01/2019 9:29 am CLINICAL HISTORY: Chest and abdominal pain status post fall COMPARISON: April 2019 TECHNIQUE: Computed axial tomography of the chest, abdomen and pelvis was obtained. Oral contrast wa s given. IV contrast was not requested. All CT scans are performed using dose optimization technique as appropriate and may include automated exposure control or mA/KV adjustment according to patient size. FINDINGS: The evaluation of mediastinum, chrissie, vessels and solid organs is limited secondary to the lack of IV contrast administration Chronic right pleural thickening/calcification. Areas of scarring within the right lung. No pulmonary contusion. No mediastinal hematoma No pleural effusion. No pericardial effusion The liver, spleen, pancreas, adrenals, kidneys and bladder do not demonstrate a traumatic injury. 

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
[2019-08-01] MEDS ORDERED: DICYCLOMINE HCL 10 MG CAP ONE (10:32)
[2019-08-01 10:43] VITALS: BP 152/91; TEMP 97.4; O2SAT 100
[2019-08-01 10:55] LABS: Platelet Estimate ADEQ; Urine White Blood Cell Casts OK
[2019-08-01 10:56] LABS: Anisocytosis 1+; Blood Morphology Comment NOTED (NOT SEEN); Target Cells 1+
== END 2019-08-01 10:38 | disposition home or self-care (01) ==
LOC: ER 06:55
DX: R10.84 Generalized abdominal pain (principal); V18.0XXA Pedal cycle driver injured in noncollision transport accident in nontraffic accident, initial encounter; I10 Essential (primary) hypertension; Z21 Asymptomatic human immunodeficiency virus [HIV] infection status; Z85.038 Personal history of other malignant neoplasm of large intestine
CPT/HCPCS: 36415; 71250; 74176; 80048; 80076; 82565; 83690; 85025; 99285

== ENCOUNTER 2019-08-23 03:34 | Emergency (ER) | payer OTHER ==
[2019-08-23] MEDS ORDERED: ONDANSETRON 4 MG/2 ML VIAL ONE (03:53)
[2019-08-23] MEDS ORDERED: FAMOTIDINE 20 MG/2 ML VIAL IV ONE (03:54)
[2019-08-23] MEDS ORDERED: NA CHLORIDE 0.9% 1,000 ML ONE (03:54)
[2019-08-23 03:56] LABS: Absolute Lymphocytes (CBC) 1.4 K/uL (0.7-4.9); Basophils % 1.1 % (0-1.3); Hematocrit 45.7 % (39.6-49.0); Lymphocytes % 28.3 % (15.3-44.8); MPV 7.6 fL (7.6-11.3); RBC Red Blood Cell Count 5.76 M/uL (4.33-5.43)
[2019-08-23 04:08] LABS: Albumin 3.1 g/dL (3.4-5.0); Bilirubin Direct 0.2 mg/dL (0-0.2); Bilirubin Total 0.6 mg/dL (0.2-1.0); Potassium 4.2 mmol/L (3.5-5.1); Protein, Total 6.8 g/dL (6.4-8.2)
[2019-08-23 06:13] LABS: Barbiturates NEGATIVE (NEGATIVE); Benzodiazepines NEGATIVE (NEGATIVE); Cocaine NEGATIVE (NEGATIVE); METHAMPHETAM NEGATIVE (NEGATIVE); Methadone NEGATIVE (NEGATIVE); Opiates NEGATIVE (NEGATIVE); Phencyclidine NEGATIVE (NEGATIVE); THC Cannibis NEGATIVE (NEGATIVE)
--- NOTE | 2019-08-23 06:18 | EDPHYS ---
Physician Documentation [facility] Name: Deacon Howe Jr Age: 83 yrs Sex: Male : 1935 Arrival Date: 08/23/2019 Time: 03:35 Bed 5 Private MD: None, None ED Physician Jose Angel Bae HPI: 08/22 03:47 This 83 yrs old Black Male presents to ER via EMS with complaints of Abdominal Pain, mh7 Pain All Over. 03:47 The patient presents with abdominal pain that is diffuse. Onset: The symptoms/episode mh7 began/occurred 2 day(s) ago. The symptoms do not radiate. Associated signs and symptoms: Pertinent positives: nausea, Pertinent negatives: anorexia, blood in stools, chest pain, constipation, diarrhea, dysuria, fever, headache, hematuria, palpitations, shortness of breath, testicular pain, vomiting, vomiting blood. The symptoms are described as intermittent, vague, waxing/waning. Modifying factors: The symptoms are alleviated by nothing, the symptoms are aggravated by nothing. Severity of pain: At its worst the pain was moderate last night, in the emergency department the pain is unchanged. The patient has experienced similar episodes in the past, chronically. Historical: - Allergies: 03:36 NKDA; sg - PMHx: 03:36 Chronic pain; colon cancer; Hepatitis; HIV; Hypertension; sg - Immunization history:: Adult Immunizations not up to date. - Social history:: Smoking status: Patient reports the use of cigarette tobacco products, Patient uses street drugs, cocaine, marijuana, The patient lives with roommate. ROS: 03:47 Constitutional: Negative for fever, chills, and weight loss, Eyes: Negative for injury, mh7 pain, redness, and discharge, ENT: Negative for injury, pain, and discharge, Neck: Negative for injury, pain, and swelling, Cardiovascular: Negative for chest pain, palpitations, and edema, Respiratory: Negative for shortness of breath, cough, wheezing, and pleuritic chest pain, Back: Negative for injury and pain, : Negative for injury, bleeding, discharge, and swelling, MS/Extremity: Negative for injury and deformity, Skin: Negative for injury, rash, and discoloration, Neuro: Negative for headache, weakness, numbness, tingling, and seizure, Psych: Negative for depression, anxiety, suicide ideation, homicidal ideation, and hallucinations, Allergy/Immunology: Negative for hives, rash, and allergies, Endocrine: Negative for neck swelling, polydipsia, polyuria, polyphagia, and marked weight changes, Hematologic/Lymphatic: Negative for swollen nodes, abnormal bleeding, and unusual bruising. Exam: 03:47 Constitutional: This is a well developed, well nourished patient who is awake, alert, mh7 and in no acute distress. Head/Face: Normocephalic, atraumatic. Eyes: Pupils equal round and reactive to light, extra-ocular motions intact. Lids and lashes normal. Conjunctiva and sclera are non-icteric and not injected. Cornea within normal limits. Periorbital areas with no swelling, redness, or edema. Neck: Trachea midline, no thyromegaly or masses palpated, and no cervical lymphadenopathy. Supple, full range of motion without nuchal rigidity, or vertebral point tenderness. No Meningismus. Chest/axilla: Normal chest wall appearance and motion. Nontender with no deformity. No lesions are appreciated. Cardiovascular: Regular rate and rhythm with a normal S1 and S2. No gallops, murmurs, or rubs. Normal PMI, no JVD. No pulse deficits. Respiratory: Lungs have equal breath sounds bilaterally, clear to auscultation and percussion. No rales, rhonchi or wheezes noted. No increased work of breathing, no retractions or nasal flaring. 03:47 Back: No spinal tenderness. No costovertebral tenderness. Full range of motion. Skin: Warm, dry with normal turgor. Normal color with no rashes, no lesions, and no evidence of cellulitis. MS/ Extremity: Pulses equal, no cyanosis. Neurovascular intact. Full, normal range of motion. Neuro: Awake and alert, GCS 15, oriented to person, place, time, and situation. Cranial nerves II-XII grossly intact. Motor strength 5/5 in all extremities. Sensory grossly intact. Cerebellar exam normal. Normal gait. Psych: Awake, alert, with orientation to person, place and time. Behavior, mood, and affect are within normal limits. 03:47 Abdomen/GI: Inspection: abdomen appears normal, Bowel sounds: normal, in all quadrants, Palpation: mild abdominal tenderness, in all quadrants, Rectal exam: the exam is deferred, because of patient request, Indicators: McBurney's point is not tender, Ponce's sign is negative, Rovsing's sign is negative, Obturator sign is negative, Psoas sign is negative, Liver: no appreciated palpable abnormalities, Hernia: not appreciated. 03:52 ECG was reviewed by the Attending Physician. [facility] Vital Signs: 03:36 BP 132 / 82; Pulse 70; Resp 18; Temp 97; Pulse Ox 100% ; Weight 74.84 kg; Height 6 ft. ea 1 in. (185.42 cm); 03:36 BP 134 / 83; Pulse 70; Resp 16; Temp 97.2; Pulse Ox 98% on R/A; sg 04:30 BP 141 / 80; Pulse 64; Resp 18; Pulse Ox 99% on R/A; ea 05:23 BP 109 / 69; Pulse 58; Resp 18; Pulse Ox 97% ; ea 06:00 BP 137 / 77; Pulse 62; Resp 18; Pulse Ox 99% on R/A; mg2 03:36 Body Mass Index 21.77 (74.84 kg, 185.42 cm) ea MDM: 03:35 Patient medically screened. [facility] 06:15 Differential diagnosis: AAA, appendicitis, bowel obstruction, cholecystitis, 7 Cholelithiasis, diverticulitis, gastritis, gastroesophageal reflux disease, myocardia ischemia or infarction, non-specific abd pain, pancreatitis, Peptic Ulcer Disease, Perf. Duodenal Ulcer, Pyelonephritis, Ureterolithiasis, urinary tract infection. Data reviewed: vital signs, nurses notes, EMS record, old medical records, lab test result(s), CBC, drug level(s), electrolytes, urinalysis, EKG, radiologic studies, CT scan. Data interpreted: ekg monitor tech: rate is 62 beats/min, rhythm is normal sinus rhythm, regular, Pulse oximetry: on room air is 99 %. Interpretation: normal. Counseling: I had a detailed discussion with the patient and/or guardian regarding: the historical points, exam findings, and any diagnostic results supporting the discharge/admit diagnosis, the presence of at least one elevated blood pressure reading (>120/80) during this emergency department visit, lab results, radiology results, the need for outpatient follow up, to return to the emergency department if symptoms worsen or persist or if there are any questions or concerns that arise at home. Response to treatment: the patient's symptoms have resolved after treatment, the patient's blood pressure is in an acceptable range, mental status has returned to baseline, the patient no longer shows bradycardia, the patient is not short of breath, the patient is not tachycardic, the patient's pain is gone, the patient's temperature has normalized. 08/22 03:39 Order name: Basic Metabolic Panel [facility] 08/22 03:39 Order name: CBC with Diff 08/22 03:39 Order name: Hepatic Function; Complete Time: 04:33 7 08/22 03:39 Order name: Lipase; Complete Time: 04:33 7 08/22 03:39 Order name: UDS; Complete Time: 06:29 7 08/22 03:40 Order name: Basic Metabolic Panel; Complete Time: 04:33 EDMS 08/22 03:39 Order name: IV Saline Lock; Complete Time: 03:42 7 08/22 03:40 Order name: CBC with Automated Diff; Complete Time: 04:33 EDMS 08/22 03:40 Order name: CPK; Complete Time: 04:33 7 08/22 04:33 Order name: CT Abd/Pelvis - IV Contrast Only 7 08/22 06:02 Order name: Urine Dipstick--Ancillary (enter results) [facility] 08/22 03:39 Order name: Labs collected and sent; Complete Time: 03:42 7 08/22 03:39 Order name: EKG - Nurse/Tech; Complete Time: 03:46 7 08/22 04:40 Order name: Urine Dipstick-Ancillary (obtain specimen); Complete Time: 05:52 mh7 EC:52 Rate is 69 beats/min. Rhythm is regular, Normal Sinus Rhythm. QRS [place] is Normal. [place] mh7 interval is normal. QRS interval is normal. QT interval is normal. Q waves are Present in lead V3. T waves are Normal. No ST changes noted. Clinical impression: Abnormal EKG without significant change. Administered Medications: 03:42 Drug: NS 0.9% 1000 ml Route: IV; Rate: 1000 ml; Site: right forearm; mg2 05:52 Follow up: Response: No adverse reaction; IV Status: Completed infusion; IV Intake: mg2 1000ml 03:46 Drug: Pepcid 20 mg Route: IVP; Site: right forearm; mg2 05:53 Follow up: Response: No adverse reaction mg2 03:47 Drug: Zofran (Ondansetron) 4 mg Route: IVP; Site: right forearm; mg2 05:53 Follow up: Response: No adverse reaction mg2 Disposition: 08/23/19 06:18 Discharged to Home. Impression: Generalized abdominal pain - Chronic. - Condition is Stable. - Discharge Instructions: Abdominal Pain, Adult, [id number]. - Prescriptions for Zofran ODT 4 mg Oral tablet,disintegrating - place 1 tablet by TRANSLINGUAL route every 8 hours As needed; 6 tablet. Bentyl 20 mg Oral Tablet - take 1 tablet by ORAL route every 6 hours As needed; 20 tablet. Pepcid 20 mg Oral Tablet - take 1 tablet by ORAL route every 12 hours for 5 days; 10 tablet. - Medication Reconciliation Form, Thank You Letter, Antibiotic Education, Prescription Opioid Use form. - Follow up: Private Physician; When: 1 - 2 days; Reason: Worsening of condition, Recheck today's complaints, Re-evaluation by your physician. - Problem is chronic. - Symptoms have improved. Signatures: Dispatcher [employer] EDMS Rufino Camp RN RN Socrates Estrada mw2 Henrry Graf RN RN mg2 Jose Angel Bae MD MD mh7 Corrections: (The following items were deleted from the chart) 06:33 06:18 08/23/2019 06:18 Discharged to Home. Impression: Generalized abdominal pain - mw2 Chronic. Condition is Stable. Forms are Medication Reconciliation Form, Thank You Letter, Antibiotic Education, Prescription Opioid Use. Follow up: Private Physician; When: 1 - 2 days; Reason: Worsening of condition, Recheck today's complaints, Re-evaluation by your physician. Problem is chronic. Symptoms have improved. mh7
--- NOTE | 2019-08-23 06:18 | ER ---
Nurse's Notes [facility] Name: Deacon Howe Jr Age: 83 yrs Sex: Male : 1935 Arrival Date: 08/23/2019 Time: 03:35 Bed 5 Private MD: None, None Diagnosis: Generalized abdominal pain-Chronic Presentation: 08/22 03:36 Chief complaint: EMS states: pt called for assistance for experiencing pain all over, sg pt reports pain worse in the abdomen, denies N/V/D/Fever per [facility]. Coronavirus screen: Proceed with normal triage. Ebola Screen: Patient negative for fever greater than or equal to 101.5 degrees Fahrenheit, and additional compatible Ebola Virus Disease symptoms Patient denies exposure to infectious person. Patient denies travel to an Ebola-affected area in the 21 days before illness onset. No symptoms or risks identified at this time. Initial Sepsis Screen: Does the patient meet any 2 criteria? No. Patient's initial sepsis screen is negative. Does the patient have a suspected source of infection? Yes: Acute abdominal pain. Risk Assessment: Do you want to hurt yourself or someone else? Patient reports no desire to harm self or others. Onset of symptoms was August 23, 2019. Care prior to arrival: None. Transition of care: patient was not received from another setting of care. 03:36 Acuity: ALIN 3 sg 03:36 [facility] 03:36 Chief complaint: EMS states: Reports he started having pain all over a few hours ago. ea Coronavirus screen: Proceed with normal triage. Ebola Screen: No symptoms or risks identified at this time. Initial Sepsis Screen: Does the patient meet any 2 criteria? Yes Does the patient have a suspected source of infection? No. Patient's initial sepsis screen is negative. Risk Assessment: Do you want to hurt yourself or someone else? Patient reports no desire to harm self or others. Onset of symptoms was August 23, 2019. 03:36 [facility] 03:36 Acuity: ALIN 3 ea Historical: - Allergies: 03:36 NKDA; sg - PMHx: 03:36 Chronic pain; colon cancer; Hepatitis; HIV; Hypertension; sg - Immunization history:: Adult Immunizations not up to date. - Social history:: Smoking status: Patient reports the use of cigarette tobacco products, Patient uses street drugs, cocaine, marijuana, The patient lives with roommate. Screenin:36 Abuse screen: Denies threats or abuse. Nutritional screening: No deficits noted. ea Tuberculosis screening: No symptoms or risk factors identified. Fall Risk None identified. Assessment: 03:38 General: Appears in no apparent distress. comfortable, Behavior is calm, cooperative. mg2 Pain: Complains of pain in whole body. Neuro: Level of Consciousness is awake, alert, obeys commands, Oriented to person, place, time, situation. Cardiovascular: Capillary refill < 3 seconds Patient's skin is warm and dry. Respiratory: Airway is patent Respiratory effort is even, unlabored, Respiratory pattern is regular, symmetrical. GI: Bowel sounds present X 4 quads. Abd is soft and non tender. : No signs and/or symptoms were reported regarding the genitourinary system. EENT: No signs and/or symptoms were reported regarding the EENT system. Derm: Skin is intact, is healthy with good turgor, Skin is pink, warm \T\ dry. normal. Musculoskeletal: Circulation, motion, and sensation intact. Capillary refill < 3 seconds. 04:48 Reassessment: Patient and/or family updated on plan of care and expected duration. Pain ea level reassessed. Patient is alert, oriented x 3, equal unlabored respirations, skin warm/dry/pink. Pt taken to CT. 05:23 Reassessment: Patient and/or family updated on plan of care and expected duration. Pain ea level reassessed. Patient is alert, oriented x 3, equal unlabored respirations, skin warm/dry/pink. Vital Signs: 03:36 BP 132 / 82; Pulse 70; Resp 18; Temp 97; Pulse Ox 100% ; Weight 74.84 kg; Height 6 ft. ea 1 in. (185.42 cm); 03:36 BP 134 / 83; Pulse 70; Resp 16; Temp 97.2; Pulse Ox 98% on R/A; sg 04:30 BP 141 / 80; Pulse 64; Resp 18; Pulse Ox 99% on R/A; ea 05:23 BP 109 / 69; Pulse 58; Resp 18; Pulse Ox 97% ; ea 06:00 BP 137 / 77; Pulse 62; Resp 18; Pulse Ox 99% on R/A; mg2 03:36 Body Mass Index 21.77 (74.84 kg, 185.42 cm) ea ED Course: 03:35 Patient arrived in ED. sg 03:35 Jose Angel Bae MD is Attending Physician. [facility] 03:35 None, None is Private Physician. sg 03:36 Arm band placed on. sg 03:36 Patient has correct armband on for positive identification. Placed in gown. Bed in low ea position. Call light in reach. 03:37 Nayla Palmer RN is Primary Nurse. ea 03:38 No provider procedures requiring assistance completed. Inserted saline lock: 20 gauge mg2 in right forearm, using aseptic technique. Blood collected. 03:41 Triage completed. sg 05:09 CT Abd/Pelvis - IV Contrast Only In Process Unspecified. EDMS 05:09 IV discontinued, intact, bleeding controlled, Pressure dressing applied. mg2 05:09 Inserted saline lock: 20 gauge in left ,using aseptic technique. leg. mg2 06:33 IV discontinued, intact, bleeding controlled, No redness/swelling at site. Pressure mg2 dressing applied. Administered Medications: 03:42 Drug: NS 0.9% 1000 ml Route: IV; Rate: 1000 ml; Site: right forearm; mg2 05:52 Follow up: Response: No adverse reaction; IV Status: Completed infusion; IV Intake: mg2 1000ml 03:46 Drug: Pepcid 20 mg Route: IVP; Site: right forearm; mg2 05:53 Follow up: Response: No adverse reaction mg2 03:47 Drug: Zofran (Ondansetron) 4 mg Route: IVP; Site: right forearm; mg2 05:53 Follow up: Response: No adverse reaction mg2 Intake: 05:52 IV: 1000ml; Total: 1000ml. mg2 Outcome: 06:18 Discharge ordered by . 7 06:33 Patient left the ED. mw2 06:33 Discharged to home via wheelchair. mg2 06:33 Condition: good 06:33 Discharge instructions given to patient, Instructed on discharge instructions, follow up and referral plans. medication usage, Demonstrated understanding of instructions, follow-up care, medications, Prescriptions given X 3. Signatures: Dispatcher [employer] EDMS Rufino Camp RN RN Nayla Palmer RN RN Socrates Estrada mw2 Henrry Graf RN RN [facility] Jose Agnel Bae MD MD [facility] Corrections: (The following items were deleted from the chart) 06:03 06:00 Pulse 62bpm; Resp 18bpm; Pulse Ox 99% RA; mg2 mg2
[2019-08-23 06:49] LABS: Urine Blood NEGATIVE (NEG); Urine Glucose NEGATIVE (NEG); Urine Protein NEGATIVE (NEG); Urine pH 5.5 (5.0-7.0)
[2019-08-23 06:58] VITALS: TEMP 97
[2019-08-23 07:02] VITALS: BP 137/77; O2SAT 99
--- NOTE | 2019-08-23 10:42 | RAD REPORT ---
EXAM DESCRIPTION: CT - Abdomen Pelvis W Contrast - 08/23/2019 7:05 am CLINICAL HISTORY: 83-year-old male with abdominal pain TECHNIQUE: Axial CT imaging of the abdomen and pelvis was performed following the administration of intravenous contrast.. Sagittal and coronal reconstructed images were then performed. The CT stud y is performed according to ALARA (as low as reasonably achievable) or ALARA/IMAGE GENTLY, with autom atic adjustment of mA and/or kV according to patient size. Performed on: 08/23/2019 at 4:56 AM. COMPARISON: 08/01/2019 and 04/16/2018 FINDINGS: Lung bases: Again demonstrated is chronic pleural calcification in the inferolateral right hemithorax with adjacent scarring and/or atelectasis. The left lung base is grossly clear. The heart is normal in size. There are moderate coronary artery calcifications. There appears to be left ventr icular wall hypertrophy. Liver: The liver is normal in size and configuration. No focal hepatic abnormalities are identified. Liver attenuation is within normal limits. Spleen: The spleen is normal is size, configuration and attenuation. Gallbladder and bile duct: The gallbladder is surgically absent. There is mild physiologic dilatati on of the common bile duct status post cholecystectomy. Pancreas: The pancreas is grossly normal in size and configuration. There is stable, mild dilatation of the pancreatic duct which measures approximately 4-5 mm in diameter. Adrenal Glands: The adrenal glands are normal in size and configuration. Kidneys: Again demonstrated are bilateral renal cysts, larger on the left. 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 This measures approximately 4.6 x 4.0 cm in cross-sectiona l diameter by approximately 6.8 cm in craniocaudal dimension. There is no evidence of hydronephrosis. There is no evidence of nephrolithiasis. Stomach: The stomach is grossly normal. There is no definite hiatal hernia. Bowel: The bowel gas pattern is non specific and non obstructive. Appendix: The appendix is not clearly visualized on this examination. Free air: There is no evidence of free air. Free fluid: There is no evidence of free fluid. Vasculature: The aorta is mildly tortuous and measures approximately 2.6 cm in transverse diameter. T here are atherosclerotic calcifications along the aorta and major branch vessels. The inferior vena c trini is grossly unremarkable. Lymphadenopathy: No pathologic lymphadenopathy is identified. Bladder: The bladder is well distended and smooth in contour. Reproductive: The uterus is not well visualized and is likely surgically absent. Bones: There are chronic advanced degenerative changes of the lumbar spine similar when compared to t he prior study. There are remote postsurgical changes of the right hip joint consistent with a total right hip arthroplasty. There is a stable lytic bone lesion within the superior aspect of the right a cetabulum. Soft tissues: There is a small fat-containing ventral abdominal wall hernia to the right of midline. IMPRESSION: 1. Interval increase in size of a complex septated cystic mass arising from the upper po le of the left kidney. A neoplastic process cannot be excluded. 2. Multiple bilateral renal cysts. 3. Remote cholecystectomy with likely physiologic dilatation of the common bile duct and stable mild dilatation of the pancreatic duct. 4. Chronic pleural calcification along the inferolateral right hemithorax with adjacent scarring and/ or atelectasis. 5. Mildly tortuous abdominal aorta which measures approximately 2.6 cm in greatest transverse diamete r. Recommend follow-up imaging every five years. 6. Other chronic findings as described above. Electronically signed by: Mita Duong DO 08/23/2019 5:48 AM CDT Due to temporary technical issues with the PACS/Fluency reporting system, reports are being signed by the in house radiologist without review as a courtesy to ensure prompt reporting. The interpreting r adiologist is fully responsible for the content of the report.
--- NOTE | 2019-08-24 07:17 | EKG ---
Test Date: 2019-08-23 Test Time: 03:41:58 Wildlife Refuge Manager: KATELYN MEASUREMENT RESULTS: Intervals: Rate: 69 CT: 186 QRSD: 90 QT: 382 QTc: 409 Heath: P: 58 CT: 186 QRS: 69 T: 68 INTERPRETIVE STATEMENTS: Normal sinus rhythm Cannot rule out Anterior infarct, age undetermined Abnormal ECG Compared to ECG 05/12/2019 22:14:48 Myocardial infarct finding now present Atrial premature complex(es) no longer present Electronically Signed On 08-24-19 07:15:17 CDT by Rocco Menjivar
== END 2019-08-23 06:33 | disposition home or self-care (01) ==
LOC: ER 03:34
DX: R10.84 Generalized abdominal pain (principal); F17.210 Nicotine dependence, cigarettes, uncomplicated
CPT/HCPCS: 96361; 93005; 85025; 80048; 36415; 82550; 80076; 80307 ×8; 81003; 83690; 74177; 96375; 96374; 99284; Q9967; J7030; J2405

== ENCOUNTER 2019-09-14 15:58 | Emergency (ER) | payer OTHER ==
--- NOTE | 2019-09-14 18:05 | RAD REPORT ---
EXAM DESCRIPTION: RAD - Chest Single View - 09/14/2019 5:58 pm CLINICAL HISTORY: generalized weakness Chest pain. COMPARISON: Chest Single View dated 06/18/2019; Chest Single View dated 05/12/2019; Chest Single View d ated 04/08/2019; Chest Single View dated 06/23/2018 FINDINGS: Portable technique limits examination quality. Chronic opacification of the right lower lobe laterally is stable. Lungs are clear of acute infiltrat e. The heart is normal in size. Mildly tortuous thoracic aorta. IMPRESSION: No acute intrathoracic process suspected.
[2019-09-14 18:34] LABS: Absolute Lymphocytes (CBC) 1.2 K/uL (0.7-4.9); Basophils % 0.8 % (0-1.3); Hematocrit 43.8 % (39.6-49.0); Lymphocytes % 24.5 % (15.3-44.8); MPV 7.4 fL (7.6-11.3); RBC Red Blood Cell Count 5.48 M/uL (4.33-5.43)
--- NOTE | 2019-09-14 19:00 | ER ---
Nurse's Notes [facility] Name: Deacon Howe Jr Age: 83 yrs Sex: Male : 1935 Arrival Date: 09/14/2019 Time: 15:59 Bed 2 Private MD: Diagnosis: Myalgia;Renal insufficiency Presentation: 09/13 16:06 Chief complaint: EMS states: Generalized pain all over, not feeling well. VS WNL. jl7 Coronavirus screen: Proceed with normal triage. Patient denies a cough. Patient denies shortness of breath or difficulty breathing. Patient denies measured and/or subjective temperature greater than 100.4F prior to today's visit. Patient denies travel on a cruise ship or to a country the [facility] currently lists as an affected area. Patient denies contact with known and/or suspected case of COVID-19. Ebola Screen: No symptoms or risks identified at this time. Initial Sepsis Screen: Does the patient meet any 2 criteria? No. Patient's initial sepsis screen is negative. Does the patient have a suspected source of infection? No. Patient's initial sepsis screen is negative. Risk Assessment: Do you want to hurt yourself or someone else? Patient reports no desire to harm self or others. Onset of symptoms was September 14, 2019. Care prior to arrival: None. 16:06 Method Of Arrival: EMS: [place] [id number] 16:06 Acuity: ALIN 3 jl7 Triage Assessment: 17:19 General: Appears in no apparent distress. comfortable, Behavior is cooperative, bp appropriate for age, anxious. Pain: Complains of pain in GENERALIZED. EENT: No deficits noted. Neuro: No deficits noted. Cardiovascular: No deficits noted. Respiratory: No deficits noted. GI: No signs and/or symptoms were reported involving the gastrointestinal system. : No signs and/or symptoms were reported regarding the genitourinary system. Derm: No deficits noted. Musculoskeletal: No deficits noted. Historical: - Allergies: 17:19 NKDA; bp - Home Meds: 17:19 None [Active]; bp - PMHx: 17:19 Chronic pain; colon cancer; Hepatitis; HIV; Hypertension; bp - Immunization history:: Adult Immunizations unknown. - Social history:: Smoking status: Patient reports the use of cigarette tobacco products, unknown amount Patient uses street drugs, cocaine. Screenin:20 Abuse screen: Denies threats or abuse. Denies injuries from another. Nutritional bp screening: No deficits noted. Tuberculosis screening: No symptoms or risk factors identified. Fall Risk None identified. Assessment: 17:20 General: SEE TRIAGE NOTE. bp 17:45 Reassessment: PHLEBOTOMY CONTACTED FOR LAB DRAW. bp 18:05 Reassessment: LABS DRAWN BY PHLEBOTOMY. WHEN ASKED WHAT HE NEEDS HERE IN THE HOSPITAL bp THE PT RESPONDS "BLANKET, SOME JUICE AND A SANDWICH.". 18:20 Reassessment: PHLEBOTOMY AT B/S FOR REDRAW. bp 19:04 General: Appears in no apparent distress. comfortable, Behavior is calm, cooperative, jd3 appropriate for age. Pain: Denies pain. Neuro: Level of Consciousness is awake, alert, obeys commands, Oriented to person, place, time, situation. Cardiovascular: Capillary refill < 3 seconds Patient's skin is warm and dry. Respiratory: Airway is patent Respiratory effort is even, unlabored, Respiratory pattern is regular, symmetrical, Denies cough, shortness of breath. GI: No signs and/or symptoms were reported involving the gastrointestinal system. : No signs and/or symptoms were reported regarding the genitourinary system. EENT: No signs and/or symptoms were reported regarding the EENT system. Derm: Skin is intact, Skin is dry, Skin is normal, Skin temperature is warm. Musculoskeletal: Circulation, motion, and sensation intact. Range of motion: intact in all extremities. 19:08 Reassessment: Patient and/or family updated on plan of care and expected duration. Pain jd3 level reassessed. Patient is alert, oriented x 3, equal unlabored respirations, skin warm/dry/pink. pt given a sandwich, chips and a juice to eat prior to discharge. 19:31 Reassessment: Patient appears in no apparent distress at this time. Patient and/or jd3 family updated on plan of care and expected duration. Pain level reassessed. Patient is alert, oriented x 3, equal unlabored respirations, skin warm/dry/pink. Patient states feeling better. Vital Signs: 16:06 BP 120 / 75; Pulse 75; Resp 19; Temp 97.1; Pulse Ox 98% ; jl7 18:05 BP 139 / 85; Pulse 63; Resp 16; Pulse Ox 98% ; bp 19:03 BP 154 / 82; Pulse 63; Resp 18 S; Pulse Ox 99% on R/A; jd3 ED Course: 15:59 Patient arrived in ED. mr 16:09 Triage completed. jl7 16:38 Gato Rodriguez MD is Attending Physician. kdr 17:12 Braeden Farnsworth, RN is Primary Nurse. bp 17:20 Arm band placed on. bp 17:20 Patient has correct armband on for positive identification. Bed in low position. Call bp light in reach. Side rails up X2. 17:58 CXR XRAY In Process Unspecified. EDMS 19:31 No provider procedures requiring assistance completed. Patient did not have IV access jd3 during this emergency room visit. Administered Medications: No medications were administered Outcome: 18:59 Discharge ordered by . kdr 19:31 Discharged to home via wheelchair. jd3 19:31 Condition: stable 19:31 Discharge instructions given to patient, Instructed on discharge instructions, follow up and referral plans. Demonstrated understanding of instructions, follow-up care. 19:31 Patient left the ED. jd3 Signatures: Dispatcher [employer] EDMS Gato Rodriguez MD MD [facility] GamingLina mr Gore, Skye, RN RN jl7 Tigre Enciso RN RN jd3 Braeden Farnsworth, RN RN bp
--- NOTE | 2019-09-14 19:00 | EDPHYS ---
Physician Documentation [facility] Name: Deacon Howe Jr Age: 83 yrs Sex: Male : 1935 Arrival Date: 09/14/2019 Time: 15:59 Bed 2 Private MD: ED Physician Gato Rodriguez HPI: 09/13 19:43 This 83 yrs old Black Male presents to ER via EMS with complaints of Doesn't Feel Right.kdr 19:43 The patient states that he just doesn't feel right for the last few days. he is unable kdr to give any better or more focal description. Onset: The symptoms/episode began/occurred gradually, 2 day(s) ago. Severity of symptoms: At their worst the symptoms were mild in the emergency department the symptoms are unchanged. The patient has experienced similar episodes in the past, a few times. The patient has not recently seen a physician. Historical: - Allergies: 17:19 NKDA; bp - Home Meds: 17:19 None [Active]; bp - PMHx: 17:19 Chronic pain; colon cancer; Hepatitis; HIV; Hypertension; bp - Immunization history:: Adult Immunizations unknown. - Social history:: Smoking status: Patient reports the use of cigarette tobacco products, unknown amount Patient uses street drugs, cocaine. ROS: 19:43 Constitutional: Negative for fever, chills, and weight loss, Eyes: Negative for injury, kdr pain, redness, and discharge, ENT: Negative for injury, pain, and discharge, Neck: Negative for injury, pain, and swelling, Cardiovascular: Negative for chest pain, palpitations, and edema, Respiratory: Negative for shortness of breath, cough, wheezing, and pleuritic chest pain, Abdomen/GI: Negative for abdominal pain, nausea, vomiting, diarrhea, and constipation, Back: Negative for injury and pain, : Negative for injury, bleeding, discharge, and swelling, MS/Extremity: Negative for injury and deformity, Skin: Negative for injury, rash, and discoloration, Neuro: Negative for headache, weakness, numbness, tingling, and seizure activity. Psych: Negative for depression, anxiety, suicide ideation, homicidal ideation, and hallucinations, Allergy/Immunology: Negative for hives, rash, and allergies, Endocrine: Negative for neck swelling, polydipsia, polyuria, polyphagia, and marked weight changes, Hematologic/Lymphatic: Negative for swollen nodes, abnormal bleeding, and unusual bruising. Exam: 19:43 Constitutional: This is a well developed, well nourished patient who is awake, alert, kdr and in no acute distress. Head/Face: Normocephalic, atraumatic. Eyes: Pupils equal round and reactive to light, extra-ocular motions intact. Lids and lashes normal. Conjunctiva and sclera are non-icteric and not injected. Cornea within normal limits. Periorbital areas with no swelling, redness, or edema. Neck: Trachea midline, no thyromegaly or masses palpated, and no cervical lymphadenopathy. Supple, full range of motion without nuchal rigidity, or vertebral point tenderness. No Meningismus. Chest/axilla: Normal chest wall appearance and motion. Nontender with no deformity. No lesions are appreciated. Cardiovascular: Regular rate and rhythm with a normal S1 and S2. No gallops, murmurs, or rubs. Normal PMI, no JVD. No pulse deficits. Respiratory: Lungs have equal breath sounds bilaterally, clear to auscultation and percussion. No rales, rhonchi or wheezes noted. No increased work of breathing, no retractions or nasal flaring. Abdomen/GI: Soft, non-tender, with normal bowel sounds. No distension or tympany. No guarding or rebound. No evidence of tenderness throughout. Back: No spinal tenderness. No costovertebral tenderness. Full range of motion. Skin: Warm, dry with normal turgor. Normal color with no rashes, no lesions, and no evidence of cellulitis. MS/ Extremity: Pulses equal, no cyanosis. Neurovascular intact. Full, normal range of motion. Neuro: Awake and alert, GCS 15, oriented to person, place, time, and situation. Cranial nerves II-XII grossly intact. Motor strength 5/5 in all extremities. Sensory grossly intact. Cerebellar exam normal. Normal gait. Psych: Awake, alert, with orientation to person, place and time. Behavior, mood, and affect are within normal limits. Vital Signs: 16:06 BP 120 / 75; Pulse 75; Resp 19; Temp 97.1; Pulse Ox 98% ; jl7 18:05 BP 139 / 85; Pulse 63; Resp 16; Pulse Ox 98% ; bp 19:03 BP 154 / 82; Pulse 63; Resp 18 S; Pulse Ox 99% on R/A; jd3 MDM: 18:59 Patient medically screened. kdr 19:43 Data reviewed: vital signs, nurses notes, lab test result(s), radiologic studies. kdr Counseling: I had a detailed discussion with the patient and/or guardian regarding: the historical points, exam findings, and any diagnostic results supporting the discharge/admit diagnosis, lab results, the need for outpatient follow up. 09/13 17:37 Order name: CBC with Diff; Complete Time: 18:58 kdr 09/13 17:37 Order name: Chem 7; Complete Time: 18:58 kdr 09/13 17:37 Order name: CXR XRAY; Complete Time: 18:58 kdr Administered Medications: No medications were administered Disposition: 09/14/19 18:59 Discharged to Home. Impression: Myalgia, Renal insufficiency . - Condition is Stable. - Discharge Instructions: Musculoskeletal Pain, Pain Without a Known Cause. - Medication Reconciliation Form, Thank You Letter form. - Follow up: Private Physician; When: 2 - 3 days; Reason: If symptoms return, Further diagnostic work-up, Recheck today's complaints, Continuance of care, Re-evaluation by your physician. - Problem is an acute exacerbation. - Symptoms have improved. Signatures: Dispatcher [employer] EDMS Gato Rodriguez MD MD kdr Tigre Enciso RN RN jBraeden Lyman RN RN bp Corrections: (The following items were deleted from the chart) 19:00 18:59 09/14/2019 18:59 Discharged to Home. Impression: Myalgia. Condition is Stable. kdr Forms are Medication Reconciliation Form, Thank You Letter, Antibiotic Education, Prescription Opioid Use. Follow up: Private Physician; When: 2 - 3 days; Reason: If symptoms return, Further diagnostic work-up, Recheck today's complaints, Continuance of care, Re-evaluation by your physician. Problem is an acute exacerbation. Symptoms have improved. kdr 19:31 19:00 09/14/2019 18:59 Discharged to Home. Impression: Myalgia; Renal insufficiency . jd3 Condition is Stable. Forms are Medication Reconciliation Form, Thank You Letter, Antibiotic Education, Prescription Opioid Use. Follow up: Private Physician; When: 2 - 3 days; Reason: If symptoms return, Further diagnostic work-up, Recheck today's complaints, Continuance of care, Re-evaluation by your physician. Problem is an acute exacerbation. Symptoms have improved. kdr
[2019-09-14 19:38] VITALS: TEMP 97.1
[2019-09-14 19:40] VITALS: BP 154/82; O2SAT 99
== END 2019-09-14 19:31 | disposition home or self-care (01) ==
LOC: ER 15:58
DX: M79.10 Myalgia, unspecified site (principal); N28.9 Disorder of kidney and ureter, unspecified; F17.210 Nicotine dependence, cigarettes, uncomplicated
CPT/HCPCS: 36415; 71045; 80048; 85025; 99283

== ENCOUNTER 2019-09-30 17:02 | Emergency (ER) | payer OTHER ==
[2019-09-30 17:51] LABS: Absolute Lymphocytes (CBC) 1.4 K/uL (0.7-4.9); Basophils % 0.8 % (0-1.3); Hematocrit 41.8 % (39.6-49.0); Lymphocytes % 29.1 % (15.3-44.8); MPV 7.5 fL (7.6-11.3); RBC Red Blood Cell Count 5.24 M/uL (4.33-5.43)
[2019-09-30] MEDS ORDERED: FENTANYL CITR 100 MCG/2 ML ONE (17:52)
[2019-09-30 18:20] LABS: ALT/SGPT 25 U/L (12-78); AST/SGOT 24 U/L (15-37); Alkaline Phosphatase 89 U/L (45-117); BUN Blood Urea Nitrogen 17 mg/dL (7-18); Bicarbonate 24 mmol/L (21-32); Bilirubin Direct 0.2 mg/dL (0-0.2); Bilirubin Total 0.5 mg/dL (0.2-1.0); Glucose Level 95 mg/dL (74-106); Lipase 142 U/L (73-393); Potassium 4.1 mmol/L (3.5-5.1); Protein, Total 6.5 g/dL (6.4-8.2); Sodium Level 140 mmol/L (136-145)
[2019-09-30] MEDS ORDERED: TRAMADOL HCL 50 MG TAB ONE (18:45)
--- NOTE | 2019-09-30 19:03 | RAD REPORT ---
EXAM DESCRIPTION: RAD - Pelvis - 09/30/2019 6:39 pm CLINICAL HISTORY: Pelvic pain FINDINGS: No fracture or dislocation is seen. 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 The bones are osteoporotic. 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
--- NOTE | 2019-09-30 19:05 | RAD REPORT ---
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
[2019-09-30 20:14] LABS: Urine Bacteria <20 /HPF (NONE SEEN); Urine Culture Reflex Order NOT NEEDED; Urine RBC NONE SEEN /HPF (NONE SEEN)
--- NOTE | 2019-09-30 20:20 | ER ---
Nurse's Notes [facility] Name: Deacon Howe Jr Age: 83 yrs Sex: Male : 1935 Arrival Date: 09/30/2019 Time: 17:04 Bed 20 Private MD: Diagnosis: Low back pain Presentation: 09/29 17:04 Chief complaint: EMS states: back pain, unable to say what part has been hurting. Pt sv sleeps on concrete and is homeless. Coronavirus screen: Patient denies a cough. Patient denies shortness of breath or difficulty breathing. Patient denies measured and/or subjective temperature greater than 100.4F prior to today's visit. Patient denies travel on a cruise ship or to a country the [facility] currently lists as an affected area. Patient denies contact with known and/or suspected case of COVID-19. Proceed with normal triage. Ebola Screen: No symptoms or risks identified at this time. Initial Sepsis Screen: Does the patient meet any 2 criteria? No. Patient's initial sepsis screen is negative. Does the patient have a suspected source of infection? No. Patient's initial sepsis screen is negative. Risk Assessment: Do you want to hurt yourself or someone else? Patient reports no desire to harm self or others. Onset of symptoms was September 30, 2019. 17:04 Method Of Arrival: EMS: [facility] sv 17:04 Acuity: ALIN 5 sv Historical: - Allergies: 17:05 NKDA; sv - PMHx: 17:05 Chronic pain; colon cancer; Hepatitis; HIV; Hypertension; sv - Immunization history:: Flu vaccine is not up to date. - Social history:: Smoking status: . Screenin:06 Abuse screen: Denies threats or abuse. Denies injuries from another. Nutritional sv screening: No deficits noted. Tuberculosis screening: No symptoms or risk factors identified. Fall Risk None identified. Assessment: 17:11 General: Appears in no apparent distress. Behavior is calm, cooperative. Pain: ll1 Complains of pain in back Quality of pain is described as aching, Pain began 2-3 days ago. Neuro: Level of Consciousness is awake, alert, Oriented to person, place, time, situation, Appropriate for age Voice Instructor are equal bilaterally Moves all extremities. Full function Gait is steady, Speech is normal, Facial symmetry appears normal. Musculoskeletal: Circulation, motion, and sensation intact. Capillary refill < 3 seconds, Reports pain in back. Injury Description: none. 18:10 Reassessment: Patient appears in no apparent distress at this time. No changes from ll1 previously documented assessment. Patient and/or family updated on plan of care and expected duration. Pain level reassessed. Patient is alert, oriented x 3, equal unlabored respirations, skin warm/dry/pink. 19:32 Reassessment: Patient denies pain at this time. Patient states feeling better. Patient mt2 states symptoms have improved. 20:41 Reassessment: Patient states feeling better. Patient states symptoms have improved. mt2 Pain: Denies pain. Vital Signs: 17:04 BP 149 / 73; Pulse 76; Resp 16; Temp 97.3; Pulse Ox 99% ; sv 17:16 BP 141 / 80 LA (auto/reg); Pulse 70; Pulse Ox 99% ; jp3 18:50 BP 148 / 90; Pulse 67; Resp 17; Pulse Ox 100% ; ll1 19:30 BP 143 / 79; Pulse 69; Resp 16; Temp 97.9(O); Pulse Ox 98% on R/A; Pain 0/10; mt2 20:41 BP 139 / 72; Pulse 71; Resp 16; Temp 98.0(TE); Pulse Ox 99% on R/A; Pain 0/10; mt2 ED Course: 17:04 Patient arrived in ED. sv 17:05 Triage completed. sv 17:05 Arm band placed on. sv 17:06 Vipul Kuhn PA is PHCP. cp 17:06 Vipul Castillo MD is Attending Physician. cp 17:06 Patient has correct armband on for positive identification. sv 17:11 Carmen Gomez, MARYANNE is Primary Nurse. ll1 17:15 Placed in gown. Bed in low position. Call light in reach. Side rails up X 1. Side rails jp3 up X2. Warm blanket given. Verbal reassurance given. Pulse ox on. NIBP on. 17:16 Patient maintains SpO2 saturation greater than 95% on room air. jp3 17:35 Inserted saline lock: 22 gauge in right ,using aseptic technique. leg Blood collected. ll1 18:20 XRAY Pelvis In Process Unspecified. EDMS 18:20 XRAY Lumbar Spine (3 Views) In Process Unspecified. EDMS 19:00 Urine collected: clean catch specimen, clear, marko colored. jp3 19:31 Primary Nurse role handed off by Carmen Gomez RN mt2 19:31 Jacklyn Dickson, MARYANNE is Primary Nurse. mt2 20:41 No provider procedures requiring assistance completed. IV discontinued, intact, mt2 bleeding controlled, No redness/swelling at site. Pressure dressing applied. Administered Medications: 17:47 Drug: fentaNYL (PF) 25 mcg Route: IVP; Site: Other; 1 18:40 Follow up: Response: No adverse reaction; RASS: Alert and Calm (0) 1 18:40 Drug: traMADol 50 mg {Note: RASS 0.} Route: PO; ll1 20:36 Drug: TORadol - Ketorolac 15 mg Route: IVP; Site: Other; mt2 20:42 Follow up: Response: No adverse reaction; Medication administered at discharge. mt2 Outcome: 20:19 Discharge ordered by MD. cp 20:41 Discharged to home via wheelchair. mt2 20:41 Condition: good 20:41 Discharge instructions given to patient, Instructed on discharge instructions, follow up and referral plans. medication usage, Demonstrated understanding of instructions, follow-up care, medications, Prescriptions given X 3. 20:43 Patient left the ED. mt2 Signatures: Dispatcher [employer] Sarah Cheng, RN Vipul Carrion PA PA cp Pisarski, Jacob jp3 Carmen Gomez, MARYANNE RN 1 Jacklyn Dickson RN RN mt2
--- NOTE | 2019-09-30 20:20 | EDPHYS ---
Physician Documentation [facility] Name: Deacon Howe Jr Age: 83 yrs Sex: Male : 1935 Arrival Date: 09/30/2019 Time: 17:04 Bed 20 Private MD: ED Physician Vipul Castillo HPI: 09/29 17:30 This 83 yrs old Black Male presents to ER via EMS with complaints of Back Pain. cp 17:30 The patient presents with pain that is acute, with no known mechanism of injury, and cp tenderness. 17:30 The symptoms are located in the low back. Onset: The symptoms/episode began/occurred 3 cp day(s) ago. The pain does not radiate. 17:30 Associated signs and symptoms: Pertinent negatives: abdominal pain, chest pain, cp constipation, fever, hematuria, numbness, urinary retention, weakness. 17:30 The problem was sustained sleeping on ground. Modifying factors: the patient symptoms cp are aggravated by any movement. Historical: - Allergies: 17:05 NKDA; sv - PMHx: 17:05 Chronic pain; colon cancer; Hepatitis; HIV; Hypertension; sv - Immunization history:: Flu vaccine is not up to date. - Social history:: Smoking status: . ROS: 17:35 Back: Positive for pain at rest, pain with movement, of the low back area. cp 17:35 Eyes: Negative for injury, pain, redness, and discharge. cp 17:35 Constitutional: Negative for body aches, chills, fever, poor PO intake. 17:35 Cardiovascular: Negative for chest pain, edema, palpitations. 17:35 Respiratory: Negative for cough, shortness of breath, wheezing. 17:35 Abdomen/GI: Negative for abdominal pain, nausea, vomiting, and diarrhea. 17:35 : Negative for urinary symptoms, testicular pain 17:35 Skin: Negative for rash. 17:35 Neuro: Negative for altered mental status, headache, weakness. 17:35 All other systems are negative. Exam: 17:40 Constitutional: The patient appears in no acute distress, alert, awake, cp non-diaphoretic, non-toxic, well developed, well nourished. 17:40 Head/Face: Normocephalic, atraumatic. cp 17:40 Eyes: Periorbital structures: appear normal, Conjunctiva: normal, no exudate, no injection, Lids and lashes: appear normal, bilaterally. 17:40 ENT: External ear(s): are unremarkable, Nose: is normal, Mouth: Lips: moist, Oral mucosa: moist, Posterior pharynx: Airway: no evidence of obstruction, patent. 17:40 Neck: ROM/movement: is normal, is supple, without pain, no range of motions limitations. 17:40 Chest/axilla: Inspection: normal, Palpation: is normal, no crepitus, no tenderness. 17:40 Cardiovascular: Rate: normal, Rhythm: regular, Edema: is not appreciated. 17:40 Respiratory: the patient does not display signs of respiratory distress, Respirations: normal, no use of accessory muscles, labored breathing, is not present, Breath sounds: decreased breath sounds, are not appreciated, stridor, is not appreciated, wheezing: is not appreciated. 17:40 Abdomen/GI: Inspection: abdomen appears normal, Palpation: abdomen is soft and non-tender, in all quadrants. 17:40 Back: pain, that is moderate, of the low back area, ROM is painful, with all movement, Straight leg raises: of both lower extremities does not illicit pain. 17:40 Skin: no rash present. 17:40 Neuro: Orientation: to person, place \T\ time. Mentation: is normal, Motor: moves all fours, strength is normal, Sensation: no obvious gross deficits, Deep tendon reflexes are 2+ (normal) in the right patellar, right Achilles, left patellar and left Achilles. Vital Signs: 17:04 BP 149 / 73; Pulse 76; Resp 16; Temp 97.3; Pulse Ox 99% ; sv 17:16 BP 141 / 80 LA (auto/reg); Pulse 70; Pulse Ox 99% ; jp3 18:50 BP 148 / 90; Pulse 67; Resp 17; Pulse Ox 100% ; ll1 19:30 BP 143 / 79; Pulse 69; Resp 16; Temp 97.9(O); Pulse Ox 98% on R/A; Pain 0/10; mt2 20:41 BP 139 / 72; Pulse 71; Resp 16; Temp 98.0(TE); Pulse Ox 99% on R/A; Pain 0/10; mt2 MDM: 17:09 Patient medically screened. cp 18:00 Differential diagnosis: chronic back pain, Fracture Hydronephrosis Pyelonephritis cp ruptured disc, Ureterolithiasis vertebral fracture. 20:19 Data reviewed: vital signs, nurses notes, lab test result(s), radiologic studies, plain cp films. 20:19 Counseling: I had a detailed discussion with the patient and/or guardian regarding: the cp historical points, exam findings, and any diagnostic results supporting the discharge/admit diagnosis, lab results, radiology results, the need for outpatient follow up, a family practitioner, to return to the emergency department if symptoms worsen or persist or if there are any questions or concerns that arise at home. Response to treatment: the patient's symptoms have markedly improved after treatment, and as a result, I will discharge patient. ED course: VSS. Pain improved with meds. Will discharge to home for continued monitoring. 09/29 17:25 Order name: Urine Microscopic Only; Complete Time: 20:19 09/29 20:19 Interpretation: Reviewed. 09/29 17:25 Order name: Basic Metabolic Panel; Complete Time: 18:33 09/29 19:53 Interpretation: Normal except: CL 109. 09/29 17:25 Order name: XRAY Pelvis; Complete Time: 19:07 09/29 19:08 Interpretation: Report reviewed. 09/29 17:25 Order name: CBC with Diff; Complete Time: 18:33 09/29 19:53 Interpretation: Normal except: MCV 79.8; MCH 25.9; RDW 16.7; MPV 7.5. 09/29 17:25 Order name: Hepatic Function; Complete Time: 18:33 09/29 19:53 Interpretation: Normal except: ALB 3.0; A/G 0.9. 09/29 17:25 Order name: Lipase; Complete Time: 18:33 09/29 17:25 Order name: Urine Dipstick-Ancillary (obtain specimen); Complete Time: 18:11 09/29 17:25 Order name: XRAY Lumbar Spine (3 Views); Complete Time: 19:07 18 19:08 Interpretation: Report reviewed. 09/29 17:25 Order name: IV Saline Lock; Complete Time: 17:47 09/29 17:25 Order name: Labs collected and sent; Complete Time: 17:47 cp Administered Medications: 17:47 Drug: fentaNYL (PF) 25 mcg Route: IVP; Site: Other; ll1 18:40 Follow up: Response: No adverse reaction; RASS: Alert and Calm (0) ll1 18:40 Drug: traMADol 50 mg {Note: RASS 0.} Route: PO; ll1 20:36 Drug: TORadol - Ketorolac 15 mg Route: IVP; Site: Other; mt2 20:42 Follow up: Response: No adverse reaction; Medication administered at discharge. mt2 Disposition: 09/30 18:11 Co-signature as Attending Physician, Vipul Castillo MD I agree with the assessment and [facility] plan of care. Disposition: 09/30/19 20:19 Discharged to Home. Impression: Low back pain. - Condition is Stable. - Discharge Instructions: Back Pain, Adult, Back Exercises. - Prescriptions for Lidoderm 5 % Topical adhesive patch,medicated - apply 1 patch by TRANSDERMAL route once daily; 1 box. Mobic 7.5 mg Oral Tablet - take 1 tablet by ORAL route once daily take with food; 20 tablet. Tramadol 50 mg Oral Tablet - take 1 tablet by ORAL route every 8 hours as needed; 12 tablet. - Medication Reconciliation Form, Thank You Letter, Antibiotic Education, Prescription Opioid Use form. - Follow up: Private Physician; When: 2 - 3 days; Reason: Recheck today's complaints. - Problem is new. - Symptoms have improved. Signatures: Dispatcher [employer] Sarah Cheng, RN Vipul Bhatti MD MD cha Page, Corey PA PA Carmen Bone, RN RN ll1 Jacklyn Dickson RN RN mt2 Corrections: (The following items were deleted from the chart) 09/29 20:43 20:19 09/30/2019 20:19 Discharged to Home. Impression: Low back pain. Condition is mt2 Stable. Forms are Medication Reconciliation Form, Thank You Letter, Antibiotic Education, Prescription Opioid Use. Follow up: Private Physician; When: 2 - 3 days; Reason: Recheck today's complaints. Problem is new. Symptoms have improved. cp 09/30 16:37 16:36 Back: Positive for pain at rest, pain with movement, of the low back area, cp cp
[2019-09-30] MEDS ORDERED: KETOROLAC 30 MG/ML INJ ONE (20:38)
[2019-09-30 21:19] VITALS: BP 139/72; TEMP 98; O2SAT 99
== END 2019-09-30 20:43 | disposition home or self-care (01) ==
LOC: ER 17:02
DX: M54.5 Low back pain (principal); I10 Essential (primary) hypertension; Z21 Asymptomatic human immunodeficiency virus [HIV] infection status; Z85.038 Personal history of other malignant neoplasm of large intestine
CPT/HCPCS: 85025; 80048; 36415; 80076; 81015; 83690; 72100; 72170; 96375; 96374; 99285; J3010

== ENCOUNTER 2019-10-06 18:28 | Emergency (ER) | payer OTHER ==
[2019-10-06] MEDS ORDERED: MORPHINE 4 MG/ML SYR ONE (19:42)
[2019-10-06] MEDS ORDERED: ONDANSETRON 4 MG/2 ML VIAL ONE (19:42)
[2019-10-06 20:17] LABS: Absolute Lymphocytes (CBC) 1.1 K/uL (0.7-4.9); Basophils % 1.3 % (0-1.3); Hematocrit 46.4 % (39.6-49.0); Lymphocytes % 25.9 % (15.3-44.8); MPV 7.6 fL (7.6-11.3); RBC Red Blood Cell Count 5.86 M/uL (4.33-5.43)
[2019-10-06 20:41] LABS: Albumin 3.6 g/dL (3.4-5.0); Bilirubin Direct 0.3 mg/dL (0-0.2); Potassium 3.7 mmol/L (3.5-5.1); Protein, Total 7.6 g/dL (6.4-8.2)
[2019-10-06 20:44] LABS: Blood Morphology Comment NOT SEEN (NOT SEEN); Platelet Estimate ADEQ
--- NOTE | 2019-10-06 21:22 | RAD REPORT ---
EXAM DESCRIPTION: CT - Abdomen Pelvis Wo Contrast - 10/06/2019 8:55 pm CLINICAL HISTORY: Abdominal pain COMPARISON: August 2019 TECHNIQUE: Computed axial tomography of the abdomen and pelvis was obtained. IV and oral contrast we re not requested. All CT scans are performed using dose optimization technique as appropriate and may include automated exposure control or mA/KV adjustment according to patient size. FINDINGS: The evaluation of solid organs, vessels and bowel is limited secondary to the lack of con trast administration. Calcified right pleural plaque unchanged Liver, spleen, pancreas and adrenals grossly normal No evidence diverticulitis. Normal appendix No change in a 4.2 centimeter complex cystic mass extending off of the lateral aspect of the mid pole of the left kidney. Hounsfield unit 35 on today's unenhanced exam. Hounsfield unit 55 on the September 01 exam which IV contrast administered. This indicates enhancement. Additional nonenhancing renal cysts. . 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
[2019-10-06] MEDS ORDERED: MAGNE/ALUM HYDROXD 30 ML UCUP ONE (21:41)
[2019-10-06] MEDS ORDERED: LIDOCAINE VISCOUS 2% SOLN 15 ML UDC ONE (21:42)
[2019-10-06 22:05] LABS: Barbiturates NEGATIVE (NEGATIVE); Benzodiazepines NEGATIVE (NEGATIVE); Cocaine NEGATIVE (NEGATIVE); METHAMPHETAM NEGATIVE (NEGATIVE); Methadone NEGATIVE (NEGATIVE); Opiates NEGATIVE (NEGATIVE); Phencyclidine NEGATIVE (NEGATIVE); THC Cannibis NEGATIVE (NEGATIVE)
--- NOTE | 2019-10-06 23:35 | ER ---
Nurse's Notes [facility] Name: Deacon Howe Jr Age: 83 yrs Sex: Male : 1935 Arrival Date: 10/06/2019 Time: 18:50 Bed 18 Private MD: Diagnosis: Abdominal Pain Presentation: 10/05 18:51 Chief complaint: EMS states: [facility] called to come get pt, c/o abdominal pain. Coronavirus screen: Proceed with normal triage. Ebola Screen: No symptoms or risks identified at this time. Initial Sepsis Screen: Does the patient meet any 2 criteria? No. Patient's initial sepsis screen is negative. Does the patient have a suspected source of infection? No. Patient's initial sepsis screen is negative. Risk Assessment: Do you want to hurt yourself or someone else? Patient reports no desire to harm self or others. Onset of symptoms was October 06, 2019. 18:51 Method Of Arrival: EMS: [facility] 18:51 Acuity: ALIN 3 Historical: - Allergies: 19:00 NKDA; - Home Meds: 19:00 Tramadol Oral [Active]; diclofenac oral oral [Active]; - PMHx: 19:00 Chronic pain; colon cancer; Hepatitis; HIV; Hypertension; - Immunization history:: Adult Immunizations unknown. - Social history:: Smoking status: Patient reports the use of cigarette tobacco products, smokes one pack cigarettes per day. Patient uses alcohol. Screenin:26 Abuse screen: Denies threats or abuse. Nutritional screening: No deficits noted. Tuberculosis screening: No symptoms or risk factors identified. Fall Risk None identified. Assessment: 19:00 General: Appears uncomfortable, Behavior is restless. Pain: Complains of pain in abdomen. Neuro: Level of Consciousness is awake, alert, Oriented to person, place, time, situation, Appropriate for age. Cardiovascular: Capillary refill < 3 seconds Patient's skin is warm and dry. Respiratory: Airway is patent Respiratory effort is even, unlabored. GI: Bowel sounds present X 4 quads. Abdomen is tender to palpation in right lower quadrant and left lower quadrant Reports nausea, vomiting. Derm: Skin is intact, Skin is dry. 20:00 Reassessment:. 20:00 Reassessment: medication given at this time for pain and nausea. 21:15 Reassessment: Pt states that pain medication not effective, informed M pt was yelling ah out and rolling in be. Order for GI cocktail. Med given to Pt. 23:57 Reassessment: Patient and/or family updated on plan of care and expected duration. Pain ea level reassessed. Patient is alert, oriented x 3, equal unlabored respirations, skin warm/dry/pink. Discharge instruction given to patient, verbalized the understanding of instruction. 10/06 00:20 Reassessment: prescription called to [facility] for pt per pt request, a voicemail sg message was left for pharmacy staff, pt informed, pt dc to home. Vital Signs: 10/05 18:51 BP 188 / 113; Pulse 78; Resp 18; Temp 97.7; Pulse Ox 100% ; Weight 70.31 kg; Height 6 ah ft. 2 in. (187.96 cm); 23:50 BP 170 / 103; Pulse 70; Resp 18; Pulse Ox 98% ; ea 18:51 Body Mass Index 19.90 (70.31 kg, 187.96 cm) ED Course: 18:50 Patient arrived in ED. 18:51 Miranda Martin, RN is Primary Nurse. 18:54 Triage completed. 19:03 Jose Angel Bae MD is Attending Physician. mh7 20:01 Inserted saline lock: 20 gauge in left ,using aseptic technique. Lower leg Blood dh4 collected. 20:55 CT Abd/Pelvis - Without Contrast In Process Unspecified. EDMS 22:26 Patient has correct armband on for positive identification. Bed in low position. Call light in reach. Side rails up X2. Pulse ox on. NIBP on. 22:30 Patient placed in an exam room. ea 10/06 00:04 No provider procedures requiring assistance completed. IV discontinued, intact, ea bleeding controlled, No redness/swelling at site. Pressure dressing applied. Administered Medications: 10/05 20:00 Drug: Zofran (Ondansetron) 4 mg Route: IVP; Site: Other; 21:44 Follow up: Response: No adverse reaction 20:00 Drug: morphine 4 mg Route: IVP; Site: Other; 21:23 Follow up: Response: No adverse reaction 21:05 Drug: Pepcid 20 mg Route: IVP; Site: Other; 21:43 Follow up: Response: No adverse reaction 21:15 Drug: GI Cocktail without - (Maalox Suspension 30 ml, Lidocaine Liquid 2 % 15 ah ml) Route: PO; 10/06 00:06 Follow up: Response: No adverse reaction ea Outcome: 10/05 23:34 Discharge ordered by MD. dumont 10/06 00:04 Condition: stable ea Discharge instructions given to patient, Instructed on discharge instructions, follow up and referral plans. medication usage, Demonstrated understanding of instructions, follow-up care, medications, Prescriptions given X 3. 00:28 Patient left the ED. ea 00:28 Discharged to home via wheelchair. ea Signatures: Dispatcher [employer] EDMS Rufino Camp RN Tea Parmar RN MARYANNE Nayla Palmer RN RN ea Harris, Amy RN Yunier Quiroz [facility] Jose Angel Bae MD MD 7
--- NOTE | 2019-10-06 23:35 | EDPHYS ---
Physician Documentation [facility] Name: Deacon Howe Jr Age: 83 yrs Sex: Male : 1935 Arrival Date: 10/06/2019 Time: 18:50 Bed 18 Private MD: ED Physician Jose Angel Bae HPI: 10/05 20:17 This 83 yrs old Black Male presents to ER via EMS with complaints of Abdominal Pain. mh7 20:17 The patient presents with abdominal pain in the upper abdomen. Onset: The 7 symptoms/episode began/occurred yesterday. The symptoms do not radiate. Associated signs and symptoms: Pertinent positives: nausea, vomiting, Pertinent negatives: anorexia, blood in stools, chest pain, constipation, diarrhea, dysuria, fever, headache, hematuria, palpitations, shortness of breath, testicular pain, vomiting blood. The symptoms are described as intermittent, vague, waxing/waning. Modifying factors: The symptoms are alleviated by nothing, the symptoms are aggravated by nothing. Severity of pain: At its worst the pain was moderate today, in the emergency department the pain has improved moderately. The patient has experienced similar episodes in the past, chronically. Historical: - Allergies: 19:00 NKDA; ah - Home Meds: 19:00 Tramadol Oral [Active]; diclofenac oral oral [Active]; ah - PMHx: 19:00 Chronic pain; colon cancer; Hepatitis; HIV; Hypertension; ah - Immunization history:: Adult Immunizations unknown. - Social history:: Smoking status: Patient reports the use of cigarette tobacco products, smokes one pack cigarettes per day. Patient uses alcohol. ROS: 20:17 Constitutional: Negative for fever, chills, and weight loss, Eyes: Negative for injury, mh7 pain, redness, and discharge, ENT: Negative for injury, pain, and discharge, Neck: Negative for injury, pain, and swelling, Cardiovascular: Negative for chest pain, palpitations, and edema, Respiratory: Negative for shortness of breath, cough, wheezing, and pleuritic chest pain, Back: Negative for injury and pain, : Negative for injury, bleeding, discharge, and swelling, MS/Extremity: Negative for injury and deformity, Skin: Negative for injury, rash, and discoloration, Neuro: Negative for headache, weakness, numbness, tingling, and seizure, Psych: Negative for depression, anxiety, suicide ideation, homicidal ideation, and hallucinations, Allergy/Immunology: Negative for hives, rash, and allergies, Endocrine: Negative for neck swelling, polydipsia, polyuria, polyphagia, and marked weight changes, Hematologic/Lymphatic: Negative for swollen nodes, abnormal bleeding, and unusual bruising. Exam: 20:17 Constitutional: This is a well developed, well nourished patient who is awake, alert, mh7 and in no acute distress. Head/Face: Normocephalic, atraumatic. Eyes: Pupils equal round and reactive to light, extra-ocular motions intact. Lids and lashes normal. Conjunctiva and sclera are non-icteric and not injected. Cornea within normal limits. Periorbital areas with no swelling, redness, or edema. Neck: Trachea midline, no thyromegaly or masses palpated, and no cervical lymphadenopathy. Supple, full range of motion without nuchal rigidity, or vertebral point tenderness. No Meningismus. Chest/axilla: Normal chest wall appearance and motion. Nontender with no deformity. No lesions are appreciated. Cardiovascular: Regular rate and rhythm with a normal S1 and S2. No gallops, murmurs, or rubs. Normal PMI, no JVD. No pulse deficits. Respiratory: Lungs have equal breath sounds bilaterally, clear to auscultation and percussion. No rales, rhonchi or wheezes noted. No increased work of breathing, no retractions or nasal flaring. 20:17 Back: No spinal tenderness. No costovertebral tenderness. Full range of motion. Skin: Warm, dry with normal turgor. Normal color with no rashes, no lesions, and no evidence of cellulitis. MS/ Extremity: Pulses equal, no cyanosis. Neurovascular intact. Full, normal range of motion. Neuro: Awake and alert, GCS 15, oriented to person, place, time, and situation. Cranial nerves II-XII grossly intact. Motor strength 5/5 in all extremities. Sensory grossly intact. Cerebellar exam normal. Normal gait. Psych: Awake, alert, with orientation to person, place and time. Behavior, mood, and affect are within normal limits. 20:17 Abdomen/GI: Inspection: scar(s), are noted in the umbilical area and suprapubic area, Bowel sounds: normal, in all quadrants, Palpation: moderate abdominal tenderness, in the epigastric area, Rectal exam: the exam is deferred, because of patient request, Indicators: McBurney's point is not tender, Ponce's sign is negative, Rovsing's sign is negative, Obturator sign is negative, Psoas sign is negative, Liver: no appreciated palpable abnormalities, Hernia: not appreciated. 23:44 ECG was reviewed by the Attending Physician. [facility] Vital Signs: 18:51 BP 188 / 113; Pulse 78; Resp 18; Temp 97.7; Pulse Ox 100% ; Weight 70.31 kg; Height 6 ah ft. 2 in. (187.96 cm); 23:50 BP 170 / 103; Pulse 70; Resp 18; Pulse Ox 98% ; ea 18:51 Body Mass Index 19.90 (70.31 kg, 187.96 cm) ah MDM: 19:12 Patient medically screened. [email or web address] 23:33 Differential diagnosis: AAA, bowel obstruction, diverticulitis, gastritis, [facility] gastroesophageal reflux disease, non-specific abd pain, pancreatitis, Peptic Ulcer Disease, Ureterolithiasis, urinary tract infection. Data reviewed: vital signs, nurses notes, old medical records, lab test result(s), cardiac enzymes, CBC, electrolytes, urinalysis, urine drug screen, EKG, radiologic studies, CT scan. Data interpreted: Pulse oximetry: on room air is 100 %. Interpretation: normal. Counseling: I had a detailed discussion with the patient and/or guardian regarding: the historical points, exam findings, and any diagnostic results supporting the discharge/admit diagnosis, the presence of at least one elevated blood pressure reading (>120/80) during this emergency department visit, lab results, radiology results, the need for outpatient follow up, to return to the emergency department if symptoms worsen or persist or if there are any questions or concerns that arise at home. Response to treatment: the patient's symptoms have resolved after treatment, the patient's blood pressure is in an acceptable range, mental status has returned to baseline, the patient no longer shows bradycardia, the patient is not short of breath, the patient is not tachycardic, the patient's pain is gone, the patient's temperature has normalized. 10/05 19:15 Order name: Basic Metabolic Panel; Complete Time: 20:44 [facility] 10/05 19:15 Order name: CBC with Diff; Complete Time: 21:28 7 10/05 19:15 Order name: Hepatic Function; Complete Time: 20:44 7 10/05 19:15 Order name: Lipase; Complete Time: 20:44 7 10/05 20:18 Order name: Manual Differential; Complete Time: 21:28 EDMS 10/05 21:32 Order name: Troponin (emerg Dept Use Only); Complete Time: 22:40 7 10/05 19:15 Order name: IV Saline Lock; Complete Time: 20:55 7 10/05 19:15 Order name: Labs collected and sent; Complete Time: 20:55 7 10/05 20:43 Order name: CT Abd/Pelvis - Without Contrast; Complete Time: 21:28 7 10/05 21:32 Order name: UDS; Complete Time: 22:40 7 10/05 19:15 Order name: Urine Dipstick-Ancillary (obtain specimen); Complete Time: 21:44 [email or web address] 10/05 19:15 Order name: EKG - Nurse/Tech; Complete Time: 21:44 mh7 EC:44 Rate is 98 beats/min. Rhythm is regular, Normal Sinus Rhythm. QRS [place] is Normal. RI mh7 interval is normal. QRS interval is normal. QT interval is normal. No Q waves. T waves are Normal. No ST changes noted. Clinical impression: Normal ECG. Administered Medications: 20:00 Drug: Zofran (Ondansetron) 4 mg Route: IVP; Site: Other; 21:44 Follow up: Response: No adverse reaction 20:00 Drug: morphine 4 mg Route: IVP; Site: Other; ah 21:23 Follow up: Response: No adverse reaction 21:05 Drug: Pepcid 20 mg Route: IVP; Site: Other; ah 21:43 Follow up: Response: No adverse reaction 21:15 Drug: GI Cocktail without - (Maalox Suspension 30 ml, Lidocaine Liquid 2 % 15 ah ml) Route: PO; 10/06 00:06 Follow up: Response: No adverse reaction ea Disposition: 10/06/19 23:34 Discharged to Home. Impression: Abdominal Pain. - Condition is Stable. - Discharge Instructions: Abdominal Pain, Adult, [id number]. - Prescriptions for Zofran ODT 4 mg Oral tablet,disintegrating - place 1 tablet by TRANSLINGUAL route every 8 hours As needed; 10 tablet. Bentyl 20 mg Oral Tablet - take 1 tablet by ORAL route every 6 hours As needed; 20 tablet. Pepcid 20 mg Oral Tablet - take 1 tablet by ORAL route every 12 hours for 5 days; 10 tablet. - Medication Reconciliation Form, Thank You Letter, Antibiotic Education, Prescription Opioid Use form. - Follow up: Private Physician; When: 2 - 3 days; Reason: Worsening of condition, Recheck today's complaints, Continuance of care, Re-evaluation by your physician. - Problem is chronic. - Symptoms have improved. Signatures: Dispatcher [employer] EDNayla Rain RN RN ea Harris, Amy, RN RN ah Holmes, Maurice, MD MD mh7 Corrections: (The following items were deleted from the chart) 00:28 10/05 23:34 10/06/2019 23:34 Discharged to Home. Impression: Abdominal Pain. Condition ea is Stable. Forms are Medication Reconciliation Form, Thank You Letter, Antibiotic Education, Prescription Opioid Use. Follow up: Private Physician; When: 2 - 3 days; Reason: Worsening of condition, Recheck today's complaints, Continuance of care, Re-evaluation by your physician. Problem is chronic. Symptoms have improved. mh7
[2019-10-07 02:03] VITALS: TEMP 97.7
[2019-10-07 02:08] VITALS: BP 170/103; O2SAT 98
--- NOTE | 2019-10-08 07:28 | EKG ---
Test Date: 2019-10-06 Test Time: 21:45:30 Packaging Sales Consultant: RAYMUNDO MEASUREMENT RESULTS: Intervals: Rate: 98 RI: 166 QRSD: 80 QT: 334 QTc: 426 [place]: P: 52 RI: 166 QRS: 79 T: 69 INTERPRETIVE STATEMENTS: Normal sinus rhythm Normal ECG Compared to ECG 08/23/2019 03:41:58 Myocardial infarct finding no longer present Electronically Signed On 10-08-19 07:25:23 CDT by Rocco Menjivar
== END 2019-10-07 00:28 | disposition home or self-care (01) ==
LOC: ER 18:28
DX: R10.10 Upper abdominal pain, unspecified (principal); R11.2 Nausea with vomiting, unspecified; I10 Essential (primary) hypertension; F17.210 Nicotine dependence, cigarettes, uncomplicated; Z21 Asymptomatic human immunodeficiency virus [HIV] infection status; Z85.038 Personal history of other malignant neoplasm of large intestine
CPT/HCPCS: 93005; 85025; 80048; 36415; 80076; 80307 ×8; 84484; 83690; 74176; 96375; 96374; 99284; J2405

== ENCOUNTER 2019-10-08 12:11 | Emergency (ER) | payer OTHER ==
[2019-10-08 14:20] LABS: Absolute Lymphocytes (CBC) 0.9 K/uL (0.7-4.9); Basophils % 0.7 % (0-1.3); Hematocrit 46.6 % (39.6-49.0); Lymphocytes % 21.7 % (15.3-44.8); MPV 7.2 fL (7.6-11.3); RBC Red Blood Cell Count 5.82 M/uL (4.33-5.43)
[2019-10-08 14:23] LABS: Protime INR 1.01
[2019-10-08] MEDS ORDERED: FAMOTIDINE 20 MG/2 ML VIAL IV ONE (14:37)
[2019-10-08] MEDS ORDERED: NA CHLORIDE 0.9% 1,000 ML ONE (14:37)
[2019-10-08 14:55] LABS: ALT/SGPT 29 U/L (12-78); AST/SGOT 25 U/L (15-37); Albumin 3.2 g/dL (3.4-5.0); Alkaline Phosphatase 79 U/L (45-117); BUN Blood Urea Nitrogen 17 mg/dL (7-18); Bicarbonate 28 mmol/L (21-32); Bilirubin Direct 0.2 mg/dL (0-0.2); Bilirubin Total 0.6 mg/dL (0.2-1.0); Glucose Level 96 mg/dL (74-106); Lipase 120 U/L (73-393); Magnesium 2.2 mg/dL (1.8-2.4); NT PRO-BNP 97 pg/mL (<450); Potassium 4.1 mmol/L (3.5-5.1); Protein, Total 7.2 g/dL (6.4-8.2); Sodium Level 140 mmol/L (136-145); Troponin (Emerg Dept Use Only) < 0.02 ng/mL (0.0-0.045)
[2019-10-08 15:01] LABS: Urine Blood NEGATIVE (NEG); Urine Glucose NEGATIVE (NEG); Urine Protein TRACE (NEG); Urine Specific Gravity 1.025 (1.005-1.030)
[2019-10-08 15:40] LABS: Barbiturates NEGATIVE (NEGATIVE); Benzodiazepines NEGATIVE (NEGATIVE); Cocaine POSITIVE (NEGATIVE); METHAMPHETAM NEGATIVE (NEGATIVE); Methadone NEGATIVE (NEGATIVE); Opiates NEGATIVE (NEGATIVE); Phencyclidine NEGATIVE (NEGATIVE); THC Cannibis NEGATIVE (NEGATIVE)
--- NOTE | 2019-10-08 17:04 | RAD REPORT ---
EXAM DESCRIPTION: [place] Single View10/08/2019 1:07 pm CLINICAL HISTORY: cough COMPARISON: 09/14/2019 FINDINGS: Right pleural calcifications unchanged. The lungs appear clear of acute infiltrate. The heart is normal size IMPRESSION: No acute abnormalities displayed
--- NOTE | 2019-10-08 17:04 | RAD REPORT ---
EXAM DESCRIPTION: CT - Abdomen Pelvis W Contrast - 10/08/2019 4:33 pm CLINICAL HISTORY: Abdominal pain COMPARISON: 10/06/2019 TECHNIQUE: Computed axial tomography of the abdomen pelvis was obtained. 100 cc Isovue-300 was admin istered intravenously. Oral contrast was not requested which limits evaluation of bowel. All CT scans are performed using dose optimization technique as appropriate and may include automated exposure control or mA/KV adjustment according to patient size. FINDINGS: Calcified right pleural opacity unchanged Liver, spleen, pancreas and kidneys unremarkable Bilateral renal cysts. 4.2 centimeter enhancing left renal mass is unchanged Cholecystectomy No evidence of diverticulitis Atherosclerosis Spondylosis involves lumbar spine IMPRESSION: 4.2 centimeter enhancing complex cystic left renal mass
--- NOTE | 2019-10-08 17:06 | RAD REPORT ---
EXAM DESCRIPTION: RAD - Abdomen W Erect - 10/08/2019 1:07 pm CLINICAL HISTORY: Abdominal pain FINDINGS: The bowel gas pattern is unremarkable. Moderate amount of stool within the colon No free air Right femoral prosthesis in place
--- NOTE | 2019-10-08 17:16 | EDPHYS ---
Physician Documentation [facility] Name: Deacon Howe Jr Age: 83 yrs Sex: Male : 1935 Arrival Date: 10/08/2019 Time: 12:18 Bed 14 Private MD: SEBASTIÁN Physician Vipul Castillo HPI: 10/07 12:44 This 83 yrs old Black Male presents to ER via EMS with complaints of abd pain, nausea martin and vomiting. 12:44 The patient presents with abdominal pain in the upper abdomen, in the lower abdomen. martin Onset: The symptoms/episode began/occurred 2 day(s) ago. The patient presents to the emergency department with nausea, vomiting, abdominal pain, of the right upper quadrant, left upper quadrant, right lower quadrant and left lower quadrant. Onset: The symptoms/episode began/occurred 2 day(s) ago. Possible causes: unknown. The symptoms are aggravated by movement, food , The symptoms are alleviated by nothing. remaining still. Associated signs and symptoms: The patient has no apparent associated signs or symptoms. Associated signs and symptoms: Pertinent positives: nausea and vomiting. Modifying factors: The symptoms are alleviated by nothing, the symptoms are aggravated by food, pressure. Historical: - Allergies: 12:31 NKDA; ks7 - PMHx: 12:31 Chronic pain; colon cancer; Hepatitis; HIV; Hypertension; ks7 - Immunization history:: Adult Immunizations unknown. - Social history:: Smoking status: Patient reports the use of cigarette tobacco products, denies chronic smoking, but will smoke occasionally. - Family history:: not pertinent. ROS: 12:44 Constitutional: Negative for fever, chills, and weight loss, Eyes: Negative for injury, martin pain, redness, and discharge, ENT: Negative for injury, pain, and discharge, Neck: Negative for injury, pain, and swelling, Cardiovascular: Negative for chest pain, palpitations, and edema, Respiratory: Negative for shortness of breath, cough, wheezing, and pleuritic chest pain, Back: Negative for injury and pain, : Negative for injury, bleeding, discharge, and swelling, MS/Extremity: Negative for injury and deformity, Skin: Negative for injury, rash, and discoloration, Neuro: Negative for headache, weakness, numbness, tingling, and seizure. 12:44 Abdomen/GI: Positive for abdominal pain, nausea and vomiting. Exam: 12:44 Constitutional: This is a well developed, well nourished patient who is awake, alert, martin and in no acute distress. Head/Face: Normocephalic, atraumatic. Eyes: Pupils equal round and reactive to light, extra-ocular motions intact. Lids and lashes normal. Conjunctiva and sclera are non-icteric and not injected. Cornea within normal limits. Periorbital areas with no swelling, redness, or edema. ENT: Nares patent. No nasal discharge, no septal abnormalities noted. Tympanic membranes are normal and external auditory canals are clear. Oropharynx with no redness, swelling, or masses, exudates, or evidence of obstruction, uvula midline. Mucous membranes moist. Neck: Trachea midline, no thyromegaly or masses palpated, and no cervical lymphadenopathy. Supple, full range of motion without nuchal rigidity, or vertebral point tenderness. No Meningismus. Chest/axilla: Normal chest wall appearance and motion. Nontender with no deformity. No lesions are appreciated. Cardiovascular: Regular rate and rhythm with a normal S1 and S2. No gallops, murmurs, or rubs. Normal PMI, no JVD. No pulse deficits. Respiratory: Lungs have equal breath sounds bilaterally, clear to auscultation and percussion. No rales, rhonchi or wheezes noted. No increased work of breathing, no retractions or nasal flaring. Back: No spinal tenderness. No costovertebral tenderness. Full range of motion. Male : Normal genitalia with no discharge or lesions. Skin: Warm, dry with normal turgor. Normal color with no rashes, no lesions, and no evidence of cellulitis. MS/ Extremity: Pulses equal, no cyanosis. Neurovascular intact. Full, normal range of motion. Neuro: Awake and alert, GCS 15, oriented to person, place, time, and situation. Cranial nerves II-XII grossly intact. Motor strength 5/5 in all extremities. Sensory grossly intact. Cerebellar exam normal. Normal gait. Psych: Awake, alert, with orientation to person, place and time. Behavior, mood, and affect are within normal limits. 12:44 Abdomen/GI: Inspection: abdomen appears normal, Bowel sounds: normal, Palpation: mild abdominal tenderness, in all quadrants, Liver: no appreciated palpable abnormalities, Hernia: not appreciated. 17:10 ECG was reviewed by the Attending Physician. [facility] Vital Signs: 12:28 BP 148 / 99; Pulse 72; Resp 18; Temp 98.7; Pulse Ox 100% on R/A; Weight 74.84 kg; ks7 Height 6 ft. 2 in. (187.96 cm); Pain 8/10; 13:42 BP 143 / 69; Pulse 95; Resp 15 S; Pulse Ox 99% on R/A; ca1 16:13 BP 174 / 92; Pulse 62; Resp 15 S; Pulse Ox 100% on R/A; ca1 17:20 BP 172 / 82; Pulse 77; Resp 15 S; Pulse Ox 98% on R/A; ca1 12:28 Body Mass Index 21.18 (74.84 kg, 187.96 cm) ks7 MDM: 12:18 Patient medically screened. [facility] 12:47 Differential diagnosis: gastritis, pancreatitis, viral gastroenteritis, martin gastroenteritis, bowel obstruction, diverticulitis, gastritis, Hepatitis, sympomatic leaking abdominal aortic aneurysm, non-specific abd pain, pancreatitis. 12:48 Data reviewed: vital signs, nurses notes, lab test result(s), EKG, radiologic studies, [facility] CT scan, plain films. Data interpreted: electronic device monitor: rate is 72 beats/min, rhythm is regular, Pulse oximetry: on room air is 100 %. Test interpretation: by ED physician or midlevel provider: ECG, plain radiologic studies. Counseling: I had a detailed discussion with the patient and/or guardian regarding: the historical points, exam findings, and any diagnostic results supporting the discharge/admit diagnosis, the presence of at least one elevated blood pressure reading (>120/80) during this emergency department visit, lab results, radiology results. Medication response: Zofran partially relieved the patient's nausea. 17:11 ED course: all labs reviewed, cocaine positive, will dc home with follow up. [facility] 10/07 12:42 Order name: Basic Metabolic Panel; Complete Time: 15:11 [facility] 10/07 12:42 Order name: CBC with Diff; Complete Time: 14:48 [facility] 10/07 12:42 Order name: LFT's; Complete Time: 15:11 [facility] 10/07 12:42 Order name: Magnesium; Complete Time: 15:11 [facility] 10/07 12:42 Order name: NT PRO-BNP; Complete Time: 15:11 [facility] 10/07 12:42 Order name: PT-INR; Complete Time: 14:48 [facility] 10/07 12:42 Order name: Troponin (emerg Dept Use Only); Complete Time: 15:11 [facility] 10/07 12:42 Order name: XRAY Chest (1 view); Complete Time: 17:10 [facility] 10/07 12:42 Order name: Lipase; Complete Time: 15:11 [facility] 10/07 12:42 Order name: Abdomen with Erect XRAY; Complete Time: 17:10 [facility] 10/07 12:42 Order name: Lactate; Complete Time: 14:48 [facility] 10/07 12:49 Order name: CT Abd/Pelvis - IV Contrast Only; Complete Time: 17:10 [facility] 10/07 14:56 Order name: Urine Dipstick--Ancillary (enter results); Complete Time: 15:11 10/07 15:12 Order name: UDS; Complete Time: 16:23 [facility] 10/07 12:42 Order name: Cardiac monitoring; Complete Time: 14:33 [facility] 10/07 12:42 Order name: EKG - Nurse/Tech; Complete Time: 14:33 [facility] 10/07 12:42 Order name: IV Saline Lock; Complete Time: 14:18 [facility] 10/07 12:42 Order name: Labs collected and sent; Complete Time: 14:18 [facility] 10/07 12:42 Order name: O2 Per Protocol; Complete Time: 14:23 [facility] 10/07 12:42 Order name: O2 Sat Monitoring; Complete Time: 14:23 [facility] 10/07 12:42 Order name: Urine Dipstick-Ancillary (obtain specimen); Complete Time: 14:57 [facility] EC:10 Rate is 65 beats/min. Rhythm is regular. QRS [place] is Normal. MD interval is normal. QRS martin interval is normal. QT interval is normal. No Q waves. T waves are Normal. No ST changes noted. Clinical impression: Normal ECG and No evidence of ischemia. Interpreted by me. Reviewed by me. Administered Medications: Discontinued: NS 0.9% 1000 ml IV at 125 ml/hr continuous 14:32 Drug: NS 0.9% 500 ml Route: IV; Rate: bolus; Site: right upper arm; ca1 15:30 Follow up: Response: No adverse reaction; IV Status: Completed infusion; IV Intake: ca1 500ml 14:32 Drug: Pepcid 20 mg Route: IVP; Site: right upper arm; ca1 15:30 Follow up: Response: No adverse reaction ca1 16:10 Drug: NS 0.9% 1000 ml Route: IV; Rate: 125 ml/hr; Site: left upper arm; ca1 Disposition: 10/08/19 17:15 Discharged to Home. Impression: Abdominal tenderness, Vomiting, Abnormal findings on diagnostic imaging of other body structures - enhancing left renal mass, Cocaine abuse. - Condition is Stable. - Discharge Instructions: Abdominal Pain, Adult, Stimulant Use Disorder-Cocaine, Nausea and Vomiting, Adult, [id number], Abdominal Pain, Adult, [id number]. - Prescriptions for Bentyl 20 mg Oral Tablet - take 1 tablet by ORAL route every 6 hours As needed; 20 tablet. Pepcid 20 mg Oral Tablet - take 1 tablet by ORAL route every 12 hours for 10 days; 20 tablet. Zofran 4 mg Oral Tablet - take 1 tablet by ORAL route every 12 hours As needed; 20 tablet. - Medication Reconciliation Form, Thank You Letter, Antibiotic Education, Prescription Opioid Use form. - Follow up: Private Physician; When: 2 - 3 days; Reason: Recheck today's complaints, Continuance of care, Re-evaluation by your physician. Follow up: Santi Chu MD; When: 2 - 3 days; Reason: Recheck today's complaints, Re-evaluation by your physician. - Problem is new. - Symptoms have improved. Signatures: Dispatcher [employer] EDMS Vipul Castillo MD MD cha Acob, Cheryl RN RN ca1 Dilia White RN RN ks7 Corrections: (The following items were deleted from the chart) 17:16 17:15 10/08/2019 17:15 Discharged to Home. Impression: Abdominal tenderness; Vomiting; martin Abnormal findings on diagnostic imaging of other body structures - enhancing left renal mass; Cocaine abuse. Condition is Stable. Forms are Medication Reconciliation Form, Thank You Letter, Antibiotic Education, Prescription Opioid Use. Follow up: Private Physician; When: 2 - 3 days; Reason: Recheck today's complaints, Continuance of care, Re-evaluation by your physician. Problem is new. Symptoms have improved. martin 17:42 17:16 10/08/2019 17:15 Discharged to Home. Impression: Abdominal tenderness; Vomiting; ca1 Abnormal findings on diagnostic imaging of other body structures - enhancing left renal mass; Cocaine abuse. Condition is Stable. Forms are Medication Reconciliation Form, Thank You Letter, Antibiotic Education, Prescription Opioid Use. Follow up: Private Physician; When: 2 - 3 days; Reason: Recheck today's complaints, Continuance of care, Re-evaluation by your physician. Follow up: Santi Chu; When: 2 - 3 days; Reason: Recheck today's complaints, Re-evaluation by your physician. Problem is new. Symptoms have improved. martin
--- NOTE | 2019-10-08 17:16 | ER ---
Nurse's Notes [facility] Name: Deacon Howe Jr Age: 83 yrs Sex: Male : 1935 Arrival Date: 10/08/2019 Time: 12:18 Bed 14 Private MD: Diagnosis: Abdominal tenderness;Vomiting;Abnormal findings on diagnostic imaging of other body structures-enhancing left renal mass;Cocaine abuse Presentation: 10/07 12:28 Chief complaint: EMS states: BIBA: pt c/o Abd Pain "all over" 10/22. also c/o Nausea. ks7 Coronavirus screen: Patient denies a cough. Patient denies shortness of breath or difficulty breathing. Patient denies measured and/or subjective temperature greater than 100.4F prior to today's visit. Patient denies travel on a cruise ship or to a country the [facility] currently lists as an affected area. Patient denies contact with known and/or suspected case of COVID-19. Patient instructed to continue to wear a mask when interacting with others. Patient moved to private room, placed in contact and droplet isolation with eye protection until further assessment. Ebola Screen: Patient negative for fever greater than or equal to 101.5 degrees Fahrenheit, and additional compatible Ebola Virus Disease symptoms Patient denies exposure to infectious person. Patient denies travel to an Ebola-affected area in the 21 days before illness onset. Initial Sepsis Screen: Does the patient meet any 2 criteria? No. Patient's initial sepsis screen is negative. Does the patient have a suspected source of infection? No. Patient's initial sepsis screen is negative. Risk Assessment: Do you want to hurt yourself or someone else? Patient reports no desire to harm self or others. Onset of symptoms was October 08, 2019. 12:28 Method Of Arrival: EMS: [facility] ks7 12:28 Acuity: ALIN 3 ks7 Triage Assessment: 12:31 General: Appears uncomfortable, Behavior is cooperative, restless. Pain: Complains of ks7 pain in abdomen Pain currently is 8 out of 10 on a pain scale. Quality of pain is described as aching, sharp, Pain began 1 day ago. GI: Bowel sounds present X 4 quads. Reports lower abdominal pain, upper abdominal pain, nausea. Historical: - Allergies: 12:31 NKDA; ks7 - PMHx: 12:31 Chronic pain; colon cancer; Hepatitis; HIV; Hypertension; ks7 - Immunization history:: Adult Immunizations unknown. - Social history:: Smoking status: Patient reports the use of cigarette tobacco products, denies chronic smoking, but will smoke occasionally. - Family history:: not pertinent. Screenin:33 Abuse screen: Denies threats or abuse. Denies injuries from another. Nutritional ks7 screening: homeless, intermittent eating. Tuberculosis screening: No symptoms or risk factors identified. Fall Risk No fall in past 12 months (0 pts). No secondary diagnosis (0 pts). IV access (20 points). Ambulatory Aid- Crutches/Cane/Walker (15 pts). Gait- Weak (10 pts.). Mental Status- Oriented to own ability (0 pts). Total Pedroza Fall Scale indicates High Risk Score (45 or more points). Assessment: 12:33 General: Appears uncomfortable, Behavior is restless, Reports pt states he has pain ks7 "all over his belly" also c/o nausea. states he ate some bad food. denies diarrhea. 14:33 Reassessment: Patient appears in no apparent distress at this time. Patient and/or ca1 family updated on plan of care and expected duration. Pain level reassessed. Patient is alert, oriented x 3, equal unlabored respirations, skin warm/dry/pink. 16:13 Reassessment: Patient appears in no apparent distress at this time. Patient and/or ca1 family updated on plan of care and expected duration. Pain level reassessed. Patient is alert, oriented x 3, equal unlabored respirations, skin warm/dry/pink. 17:38 Reassessment: Patient appears in no apparent distress at this time. Patient is alert, ca1 oriented x 3, equal unlabored respirations, skin warm/dry/pink. Vital Signs: 12:28 BP 148 / 99; Pulse 72; Resp 18; Temp 98.7; Pulse Ox 100% on R/A; Weight 74.84 kg; ks7 Height 6 ft. 2 in. (187.96 cm); Pain 8/10; 13:42 BP 143 / 69; Pulse 95; Resp 15 S; Pulse Ox 99% on R/A; ca1 16:13 BP 174 / 92; Pulse 62; Resp 15 S; Pulse Ox 100% on R/A; ca1 17:20 BP 172 / 82; Pulse 77; Resp 15 S; Pulse Ox 98% on R/A; ca1 12:28 Body Mass Index 21.18 (74.84 kg, 187.96 cm) ks7 ED Course: 12:18 Patient arrived in ED. martin 12:18 Vipul Castillo MD is Attending Physician. [facility] 12:22 Dilia White, RN is Primary Nurse. ks7 12:31 Triage completed. ks7 12:31 Arm band placed on left wrist. ks7 12:33 Patient has correct armband on for positive identification. Bed in low position. Call ks7 light in reach. Side rails up X2. 12:33 No provider procedures requiring assistance completed. Patient did not have IV access ks7 during this emergency room visit. 12:38 ED physician to see patient. at bedside assessing pt. ks7 13:00 Missed attempt(s): 22 gauge in right antecubital area. Bleeding controlled, band aid ca1 applied, catheter tip intact. 13:07 XRAY Chest (1 view) In Process Unspecified. EDMS 13:08 Abdomen with Erect XRAY In Process Unspecified. EDMS 13:17 Radiology exam delayed due to IV insertion attempt and/or patient not having bq appropriate IV at this time. 14:11 Initial lab(s) drawn, by me, sent to lab. Inserted saline lock: 18 gauge in right upper aa5 arm, using aseptic technique. Blood collected. Inserted using US, under Dr. Castillo's supervision. 16:00 Inserted 20 G LEFT BRACHIAL ML PLACED UNDER U/S GUIDANCE WITH STERILE TECHNIQUE, bp DRESSING NEW/INTACT. 16:09 Radiology exam delayed due to IV insertion attempt and/or patient not having md1 appropriate IV at this time. 16:33 CT Abd/Pelvis - IV Contrast Only In Process Unspecified. EDMS 17:15 Santi Chu MD is Referral Physician. martin Administered Medications: Discontinued: NS 0.9% 1000 ml IV at 125 ml/hr continuous 14:32 Drug: NS 0.9% 500 ml Route: IV; Rate: bolus; Site: right upper arm; ca1 15:30 Follow up: Response: No adverse reaction; IV Status: Completed infusion; IV Intake: ca1 500ml 14:32 Drug: Pepcid 20 mg Route: IVP; Site: right upper arm; ca1 15:30 Follow up: Response: No adverse reaction ca1 16:10 Drug: NS 0.9% 1000 ml Route: IV; Rate: 125 ml/hr; Site: left upper arm; ca1 Intake: 15:30 IV: 500ml; Total: 500ml. ca1 Outcome: 17:15 Discharge ordered by . martin 17:40 Discharged to home via wheelchair. ca1 17:40 Condition: stable 17:40 Discharge instructions given to patient, Instructed on discharge instructions, follow up and referral plans. medication usage, Demonstrated understanding of instructions, follow-up care, medications, Prescriptions given X 3. 17:42 Patient left the ED. ca1 Signatures: Dispatcher [employer] EDAZ Vipul Castillo MD MD cha Quilty, Betty bq Calderon, Audri RN RN aa5 Braeden Farnsworth RN RN bp Tessa Jose RN RN ca1 Terrie Snell md1 Dilia White RN RN ks7 Corrections: (The following items were deleted from the chart) 16:14 16:00 Inserted 20 G LEFT BRACHIAL ML PLACED, DRESSING NEW/INTACT bp bp
[2019-10-08 17:59] VITALS: TEMP 98.7
[2019-10-08 18:11] VITALS: BP 172/82; O2SAT 98
== END 2019-10-08 17:42 | disposition home or self-care (01) ==
LOC: ER 12:11
DX: N28.89 Other specified disorders of kidney and ureter (principal); F14.10 Cocaine abuse, uncomplicated; R11.10 Vomiting, unspecified; I10 Essential (primary) hypertension; Z21 Asymptomatic human immunodeficiency virus [HIV] infection status; Z85.038 Personal history of other malignant neoplasm of large intestine; Z72.0 Tobacco use
CPT/HCPCS: 96361; 93005; 85025; 80048; 36415; 83735; 85610; 80076; 80307 ×8; 83605; 81003; 84484; 83690; 83880; 74177; 74019; 71045; 96374; 99284; Q9967; J7030

== ENCOUNTER 2019-10-11 11:20 | Emergency (ER) | payer OTHER ==
[2019-10-11] MEDS ORDERED: KETOROLAC 30 MG/ML INJ ONE (11:52)
[2019-10-11] MEDS ORDERED: FAMOTIDINE 20 MG/2 ML VIAL IV ONE (11:53)
[2019-10-11] MEDS ORDERED: ONDANSETRON 4 MG (ODT) TAB ONE (11:53)
[2019-10-11 13:32] LABS: BUN Blood Urea Nitrogen 13 mg/dL (7-18); Bicarbonate 25 mmol/L (21-32); Glucose Level 110 mg/dL (74-106); Potassium 4.1 mmol/L (3.5-5.1); Sodium Level 136 mmol/L (136-145); Troponin (Emerg Dept Use Only) < 0.02 ng/mL (0.0-0.045)
[2019-10-11 14:08] LABS: Absolute Lymphocytes (CBC) 0.9 K/uL (0.7-4.9); Basophils % 0.6 % (0-1.3); Hematocrit 47.3 % (39.6-49.0); Lymphocytes % 17.7 % (15.3-44.8); MPV 7.3 fL (7.6-11.3)
--- NOTE | 2019-10-11 14:13 | EDPHYS ---
Physician Documentation [facility] Name: Deacon Howe Jr Age: 83 yrs Sex: Male : 1935 Arrival Date: 10/11/2019 Time: 11:21 Bed 19 Private MD: ED Physician Gato Rodriguez HPI: 10/10 14:02 This 83 yrs old Black Male presents to ER via EMS with complaints of Drug Abuse. kdr 14:02 The patient presents with abdominal pain in the lower abdomen. The symptoms are kdr described as achy, crampy, vague, waxing/waning. Modifying factors: The symptoms are alleviated by nothing, the symptoms are aggravated by touching the area. Severity of pain: At its worst the pain was mild in the emergency department the pain is unchanged. The patient has experienced similar episodes in the past, multiple times, The patient states that he was doing crack cocaine last night and that he will not do it again because he always feels like this afterwards. The patient has been recently seen by a physician: The patient has had multiple recent visits to the ED for similar abdominal pain. Historical: - Allergies: 11:25 NKDA; bp - Home Meds: 11:25 None [Active]; bp - PMHx: 11:25 Chronic pain; colon cancer; Hepatitis; HIV; Hypertension; bp - Immunization history:: Adult Immunizations unknown. - Social history:: Smoking status: Patient reports the use of cigarette tobacco products, unknown amount. ROS: 14:02 Constitutional: Negative for fever, chills, and weight loss, Eyes: Negative for injury, kdr pain, redness, and discharge, ENT: Negative for injury, pain, and discharge, Neck: Negative for injury, pain, and swelling, Cardiovascular: Negative for chest pain, palpitations, and edema, Respiratory: Negative for shortness of breath, cough, wheezing, and pleuritic chest pain, Back: Negative for injury and pain, : Negative for injury, bleeding, discharge, and swelling, MS/Extremity: Negative for injury and deformity, Skin: Negative for injury, rash, and discoloration, Neuro: Negative for headache, weakness, numbness, tingling, and seizure activity. Psych: Negative for depression, anxiety, suicide ideation, homicidal ideation, and hallucinations, Allergy/Immunology: Negative for hives, rash, and allergies, Endocrine: Negative for neck swelling, polydipsia, polyuria, polyphagia, and marked weight changes, Hematologic/Lymphatic: Negative for swollen nodes, abnormal bleeding, and unusual bruising. 14:02 Abdomen/GI: Positive for abdominal pain, nausea, diarrhea, abdominal cramps, Negative for vomiting, abdominal distension, anorexia, black/tarry stool, rectal pain, rectal bleeding, bowel incontinence, flatulence. Exam: 14:02 Constitutional: This is a well developed, well nourished patient who is awake, alert, kdr and in no acute distress. Head/Face: Normocephalic, atraumatic. Eyes: Pupils equal round and reactive to light, extra-ocular motions intact. Lids and lashes normal. Conjunctiva and sclera are non-icteric and not injected. Cornea within normal limits. Periorbital areas with no swelling, redness, or edema. Neck: Trachea midline, no thyromegaly or masses palpated, and no cervical lymphadenopathy. Supple, full range of motion without nuchal rigidity, or vertebral point tenderness. No Meningismus. Chest/axilla: Normal chest wall appearance and motion. Nontender with no deformity. No lesions are appreciated. Cardiovascular: Regular rate and rhythm with a normal S1 and S2. No gallops, murmurs, or rubs. Normal PMI, no JVD. No pulse deficits. Respiratory: Lungs have equal breath sounds bilaterally, clear to auscultation and percussion. No rales, rhonchi or wheezes noted. No increased work of breathing, no retractions or nasal flaring. Back: No spinal tenderness. No costovertebral tenderness. Full range of motion. Skin: Warm, dry with normal turgor. Normal color with no rashes, no lesions, and no evidence of cellulitis. MS/ Extremity: Pulses equal, no cyanosis. Neurovascular intact. Full, normal range of motion. Neuro: Awake and alert, GCS 15, oriented to person, place, time, and situation. Cranial nerves II-XII grossly intact. Motor strength 5/5 in all extremities. Sensory grossly intact. Cerebellar exam normal. Normal gait. Psych: Awake, alert, with orientation to person, place and time. Behavior, mood, and affect are within normal limits. 14:02 Abdomen/GI: Inspection: abdomen appears normal, scar(s), are noted in the umbilical area and suprapubic area, Bowel sounds: active, diminished, in all quadrants, Palpation: soft, moderate abdominal tenderness, in the right lower quadrant and left lower quadrant, mass, is not appreciated, rebound tenderness, is not appreciated, voluntary guarding, is not appreciated. 17:50 ECG was reviewed by the Attending Physician. kdr Vital Signs: 11:21 BP 176 / 102; Pulse 85; Resp 17; Temp 97.3; Pulse Ox 98% ; bp 12:48 BP 167 / 88; Pulse 70; Resp 17; Pulse Ox 100% on R/A; bp 13:50 BP 139 / 80; Pulse 67; Resp 14; Pulse Ox 100% ; bp 14:50 BP 141 / 90; Pulse 68; Resp 17; Temp 98; Pulse Ox 100% ; bp MDM: 14:02 Data reviewed: vital signs, nurses notes, lab test result(s). Counseling: I had a kdr detailed discussion with the patient and/or guardian regarding: the historical points, exam findings, and any diagnostic results supporting the discharge/admit diagnosis, lab results, the need for outpatient follow up. 14:12 Patient medically screened. kdr 10/10 11:38 Order name: Troponin (emerg Dept Use Only); Complete Time: 14:11 kdr 10/10 11:38 Order name: CBC with Diff; Complete Time: 14:11 kdr 10/10 11:38 Order name: Chem 7; Complete Time: 14:11 kdr 10/10 11:40 Order name: EKG; Complete Time: 11:40 bp 10/10 11:40 Order name: EKG - Nurse/Tech; Complete Time: 11:48 bp EC:50 Rate is 65 beats/min. Rhythm is regular, Normal Sinus Rhythm with No ectopy. QRS Silas kdr is Normal. MN interval is normal. QRS interval is normal. QT interval is normal. No Q waves. T waves are Normal. Clinical impression: Normal ECG. Administered Medications: 11:45 Drug: TORadol - Ketorolac 15 mg Route: IM; Site: right deltoid; bp 13:01 Follow up: Response: Marked relief of symptoms bp 11:45 Drug: Zofran (Ondansetron) 4 mg Route: PO; bp 13:01 Follow up: Response: Marked relief of symptoms bp 11:45 Drug: Pepcid 20 mg Route: PO; bp 13:01 Follow up: Response: Marked relief of symptoms bp Disposition: 10/11/19 14:12 Discharged to Home. Impression: Abdominal and pelvic pain, Lower abdominal pain, unspecified, Abuse of non-psychoactive substances - cocaine. - Condition is Stable. - Discharge Instructions: Abdominal Pain, Adult, [id number]. - Prescriptions for Bentyl 20 mg Oral Tablet - take 1 tablet by ORAL route every 6 hours As needed; 20 tablet. Ibuprofen 600 mg Oral Tablet - take 1 tablet by ORAL route every 6 hours As needed take with food; 12 tablet. Zofran 4 mg Oral Tablet - take 1 tablet by ORAL route every 12 hours As needed; 12 tablet. Pepcid 20 mg Oral Tablet - take 1 tablet by ORAL route once daily; 20 tablet. - Medication Reconciliation Form, Thank You Letter form. - Follow up: Private Physician; When: 2 - 3 days; Reason: If symptoms return, Further diagnostic work-up, Recheck today's complaints, Continuance of care, Re-evaluation by your physician. - Problem is an acute exacerbation. - Symptoms have improved. Signatures: Dispatcher [employer] EDTN Gato Rodriguez MD MD kdr Braeden Farnsworth RN RN bp Corrections: (The following items were deleted from the chart) 11:40 11:38 Rhythm Strip ordered. kdr bp 14:53 14:12 10/11/2019 14:12 Discharged to Home. Impression: Abdominal and pelvic pain; Lower bp abdominal pain, unspecified; Abuse of non-psychoactive substances - cocaine. Condition is Stable. Forms are Medication Reconciliation Form, Thank You Letter, Antibiotic Education, Prescription Opioid Use. Follow up: Private Physician; When: 2 - 3 days; Reason: If symptoms return, Further diagnostic work-up, Recheck today's complaints, Continuance of care, Re-evaluation by your physician. Problem is an acute exacerbation. Symptoms have improved. kdr
--- NOTE | 2019-10-11 14:13 | ER ---
Nurse's Notes [facility] Name: Deacon Howe Jr Age: 83 yrs Sex: Male : 1935 Arrival Date: 10/11/2019 Time: 11:21 Bed 19 Private MD: Diagnosis: Abdominal and pelvic pain;Lower abdominal pain, unspecified;Abuse of non-psychoactive substances-cocaine Presentation: 10/10 11:21 Chief complaint: EMS states: ABDOMINAL PAIN AFTER CRACK COCAINE USE. Coronavirus bp screen: Proceed with normal triage. Ebola Screen: No symptoms or risks identified at this time. Initial Sepsis Screen: Does the patient meet any 2 criteria? No. Patient's initial sepsis screen is negative. Does the patient have a suspected source of infection? No. Patient's initial sepsis screen is negative. Risk Assessment: Do you want to hurt yourself or someone else? Patient reports no desire to harm self or others. Onset of symptoms is unknown. 11:21 Method Of Arrival: EMS: [facility] bp 11:21 Acuity: ALIN 4 bp Triage Assessment: 11:25 General: Appears in no apparent distress. uncomfortable, Behavior is appropriate for bp age, agitated, anxious. Pain: Complains of pain in abdomen. EENT: No deficits noted. Neuro: No deficits noted. Cardiovascular: No deficits noted. Respiratory: No deficits noted. GI: Reports lower abdominal pain, upper abdominal pain. : No signs and/or symptoms were reported regarding the genitourinary system. Derm: No deficits noted. Musculoskeletal: No deficits noted. Historical: - Allergies: 11:25 NKDA; bp - Home Meds: 11:25 None [Active]; bp - PMHx: 11:25 Chronic pain; colon cancer; Hepatitis; HIV; Hypertension; bp - Immunization history:: Adult Immunizations unknown. - Social history:: Smoking status: Patient reports the use of cigarette tobacco products, unknown amount. Screenin:26 Abuse screen: Denies threats or abuse. Denies injuries from another. Nutritional bp screening: No deficits noted. Tuberculosis screening: No symptoms or risk factors identified. Fall Risk None identified. Assessment: 11:26 General: SEE TRIAGE NOTE. bp 12:35 Reassessment: PHLEBOTOMY AT B/S FOR BLOOD DRAW. bp 12:49 Reassessment: PHLEBOTOMY UNABLE TO OBTAIN FULL SPECIMEN. PROVIDER NOTIFIED. bp 13:53 Reassessment: SECOND ATTEMPT BY STAFF FOR BLOOD. bp 14:50 Reassessment: PT D/C HOME VIA W/C, DX WITH LOWER ABDOMINAL PAIN AND COCAINE ABUSE. bp Vital Signs: 11:21 BP 176 / 102; Pulse 85; Resp 17; Temp 97.3; Pulse Ox 98% ; bp 12:48 BP 167 / 88; Pulse 70; Resp 17; Pulse Ox 100% on R/A; bp 13:50 BP 139 / 80; Pulse 67; Resp 14; Pulse Ox 100% ; bp 14:50 BP 141 / 90; Pulse 68; Resp 17; Temp 98; Pulse Ox 100% ; bp ED Course: 11:21 Patient arrived in ED. bp 11:21 Gato Rodriguez MD is Attending Physician. bp 11:24 Triage completed. bp 11:26 Arm band placed on. bp 11:26 Patient has correct armband on for positive identification. Bed in low position. Call bp light in reach. Side rails up X2. 11:27 Braeden Farnsworth, RN is Primary Nurse. bp 14:52 No provider procedures requiring assistance completed. Patient did not have IV access bp during this emergency room visit. Administered Medications: 11:45 Drug: TORadol - Ketorolac 15 mg Route: IM; Site: right deltoid; bp 13:01 Follow up: Response: Marked relief of symptoms bp 11:45 Drug: Zofran (Ondansetron) 4 mg Route: PO; bp 13:01 Follow up: Response: Marked relief of symptoms bp 11:45 Drug: Pepcid 20 mg Route: PO; bp 13:01 Follow up: Response: Marked relief of symptoms bp Outcome: 14:12 Discharge ordered by . kdr 14:52 Discharged to home via wheelchair. bp 14:52 Condition: stable 14:52 Discharge instructions given to patient, Instructed on discharge instructions, follow up and referral plans. medication usage, Demonstrated understanding of instructions, follow-up care, medications, Prescriptions given X 4. 14:53 Patient left the ED. bp Signatures: Gato Rodriguez MD MD [facility] Braeden Farnsworth, RN RN bp Corrections: (The following items were deleted from the chart) 11:28 11:21 Chief complaint: EMS states: ABDOMINAL PAIN AT CLINIC bp bp
[2019-10-11 15:10] VITALS: O2SAT 100
[2019-10-11 15:12] VITALS: BP 141/90; TEMP 98
--- NOTE | 2019-10-12 07:34 | EKG ---
Test Date: 2019-10-11 Test Time: 11:46:41 Pressure Tester Operator: DENISE MEASUREMENT RESULTS: Intervals: Rate: 65 MD: 190 QRSD: 82 QT: 394 QTc: 409 [place]: P: 69 MD: 190 QRS: 81 T: 80 INTERPRETIVE STATEMENTS: Normal sinus rhythm Normal ECG Compared to ECG 10/08/2019 14:34:38 No significant changes Electronically Signed On 10-12-19 07:32:30 CDT by Rocco Menjivar
== END 2019-10-11 14:53 | disposition home or self-care (01) ==
LOC: ER 11:20
DX: F14.10 Cocaine abuse, uncomplicated (principal); R10.30 Lower abdominal pain, unspecified; I10 Essential (primary) hypertension; Z72.0 Tobacco use; Z21 Asymptomatic human immunodeficiency virus [HIV] infection status; Z85.038 Personal history of other malignant neoplasm of large intestine
CPT/HCPCS: 36415; 80048; 84484; 85025; 93005; 96372; 99283

== ENCOUNTER 2019-11-06 19:02 | Inpatient (IN) | payer OTHER ==
[2019-11-06 19:45] LABS: Protime INR 1.03
[2019-11-06 19:48] LABS: Absolute Lymphocytes (CBC) 0.8 K/uL (0.7-4.9); Basophils % 0.7 % (0-1.3); Hematocrit 43.7 % (39.6-49.0); Lymphocytes % 16.1 % (15.3-44.8); MPV 7.7 fL (7.6-11.3); RBC Red Blood Cell Count 5.42 M/uL (4.33-5.43)
[2019-11-06 19:51] LABS: Urine Specific Gravity >1.030 (1.005-1.030)
[2019-11-06 19:51] LABS: Barbiturates NEGATIVE (NEGATIVE); Benzodiazepines NEGATIVE (NEGATIVE); Cocaine POSITIVE (NEGATIVE); METHAMPHETAM NEGATIVE (NEGATIVE); Methadone NEGATIVE (NEGATIVE); Opiates NEGATIVE (NEGATIVE); Phencyclidine NEGATIVE (NEGATIVE); THC Cannibis NEGATIVE (NEGATIVE)
[2019-11-06 19:52] LABS: Urine Blood 1+ (NEG); Urine Glucose NEGATIVE (NEG); Urine Protein 2+ (NEG); Urine pH 5.5 (5.0-7.0)
[2019-11-06] MEDS ORDERED: NALOXONE HCL 2 MG/2 ML VIAL ONE (19:54)
[2019-11-06 20:03] LABS: ALT/SGPT 32 U/L (12-78); AST/SGOT 27 U/L (15-37); Albumin 3.1 g/dL (3.4-5.0); Alkaline Phosphatase 87 U/L (45-117); BUN Blood Urea Nitrogen 17 mg/dL (7-18); Bicarbonate 25 mmol/L (21-32); Bilirubin Direct 0.3 mg/dL (0-0.2); Bilirubin Total 0.8 mg/dL (0.2-1.0); CKMB Creatine Kinase MB 3.2 ng/mL (0.3-3.6); Creatine Phosphokinase 123 U/L (39-308); Glucose Level 100 mg/dL (74-106); Lipase 79 U/L (73-393); Potassium 3.8 mmol/L (3.5-5.1); Protein, Total 6.9 g/dL (6.4-8.2); Sodium Level 142 mmol/L (136-145); Troponin (Emerg Dept Use Only) < 0.02 ng/mL (0.0-0.045)
--- NOTE | 2019-11-06 20:19 | RAD REPORT ---
EXAM DESCRIPTION: CT - Head C Spine Mpr Wo Con - 11/06/2019 7:59 pm CLINICAL HISTORY: Syncope. Head and neck injury status post fall. Head and neck pain COMPARISON: 2014 TECHNIQUE: Computed axial tomography of the head and cervical spine was obtained. Sagittal and coronal reconstruction was performed. All CT scans are performed using dose optimization technique as appropriate and may include automated exposure control or mA/KV adjustment according to patient size. FINDINGS: An intracranial bleed is not seen. The ventricles are normal in caliber. An extra-axial fl uid collection is not noted.Fluid within the visualized sinuses and mastoids is not seen A cervical fracture is not visualized. No dislocation is noted. Spondylosis is present IMPRESSION: No acute intracranial abnormality is seen. A cervical fracture is not visualized. If the patient continues to have symptoms to suggest intracra nial /spinal cord pathology then MRI would be recommended
--- NOTE | 2019-11-06 20:33 | RAD REPORT ---
EXAM DESCRIPTION: [place] Single View11/06/2019 8:28 pm CLINICAL HISTORY: Cough COMPARISON: September 2019 FINDINGS: The lungs appear clear of acute infiltrate. The heart is normal size Right pleural calcification unchanged IMPRESSION: No acute abnormalities displayed
--- NOTE | 2019-11-06 20:45 | ER ---
Nurse's Notes [facility] Name: Deacon Howe Jr Age: 83 yrs Sex: Male : 1935 Arrival Date: 11/06/2019 Time: 19:05 Bed 7 Private MD: Diagnosis: Altered mental status, unspecified Presentation: 11/05 19:11 Chief complaint: Patient states: EMS found him unresponsive. Possible cocaine use. BP ll1 90's upon EMS arrival. Responds to painful stimuli only. Coronavirus screen: Client denies travel out of the [place] in the last 14 days. At this time, the client does not indicate any symptoms associated with coronavirus-19. Ebola Screen: Patient denies travel to an Ebola-affected area in the 21 days before illness onset. Initial Sepsis Screen: Does the patient meet any 2 criteria? No. Patient's initial sepsis screen is negative. Risk Assessment: Do you want to hurt yourself or someone else? Patient reports no desire to harm self or others. Onset of symptoms was November 06, 2019. 19:11 Method Of Arrival: EMS: [facility] 19:11 Acuity: ALIN 2 ll1 19:30 Initial Sepsis Screen: Does the patient have a suspected source of infection? No. mt2 Patient's initial sepsis screen is negative. Historical: - Allergies: 19:13 NKDA; ll1 - PMHx: 19:13 Chronic pain; colon cancer; Hepatitis; HIV; Hypertension; ll1 - Immunization history:: Adult Immunizations unknown. - Social history:: Smoking status: unknown. Screenin:30 Abuse screen: Denies threats or abuse. Nutritional screening: No deficits noted. mt2 Tuberculosis screening: No symptoms or risk factors identified. Fall Risk Gait- Impaired (20 pts.). Mental Status- Overestimates/Forgets Limitations (15 pts.). Assessment: 19:34 Reassessment: No changes from previously documented assessment. Patient and/or family mt2 updated on plan of care and expected duration. Pain level reassessed. General: Appears in no apparent distress. malnourished, Behavior is unresponsive. Pain: Unable to use pain scale. Patient is unresponsive. Neuro: Level of Consciousness is obtunded, Oriented to none. Cardiovascular: No deficits noted. Respiratory: Airway is patent Respiratory effort is unlabored, Respiratory pattern is regular, symmetrical. GI: No deficits noted. : No deficits noted. EENT: No deficits noted. Derm: No deficits noted. Musculoskeletal: No deficits noted. 20:48 Reassessment: No changes from previously documented assessment. Patient and/or family mt2 updated on plan of care and expected duration. Pain level reassessed. General: Appears in no apparent distress. Behavior is unresponsive. Pain: Unable to use pain scale. Patient is unresponsive. 21:27 Reassessment: Spoke with Muriel, patient's niece, updated on plan of care for patient. lp1 22:30 Reassessment: No changes from previously documented assessment. Patient and/or family mt2 updated on plan of care and expected duration. Pain level reassessed. PATIENT CONTINUE TO BE OBTUNDED. RESPONDS TO PAINFUL STIMULANT. AIRWAY PATENT ON RA. 23:00 Reassessment: PATIENT ADMITTED AN ED HOLD. DEFER TO [facility] CHARTING. General: mt2 Appears in no apparent distress. Behavior is unresponsive. Pain: Unable to use pain scale. Patient is unresponsive. Vital Signs: 19:11 BP 106 / 68; Pulse 83; Resp 16; Temp 96.2(A); Pulse Ox 98% on R/A; Pain 0/10; ll1 19:33 BP 127 / 68; Pulse 85; Resp 15; Temp 96.7; Pulse Ox 97% on R/A; Pain 0/10; mt2 20:30 BP 133 / 83; Pulse 91; Resp 22; Pulse Ox 98% on R/A; Pain 0/10; mt2 21:30 BP 128 / 95; Pulse 81; Resp 16; Pulse Ox 96% on R/A; Pain 0/10; mt2 22:30 BP 118 / 71; Pulse 78; Resp 16; Temp 97.0(C); Pulse Ox 98% ; Pain 0/10; mt2 Vitals: 22:30 Cardiac Rhythm Assessment Regular Sinus rhythm. mt2 ED Course: 19:05 Patient arrived in ED. em 19:13 Triage completed. ll1 19:13 Arm band placed on Patient placed in an exam room, on a stretcher. ll1 19:14 Jim Colby MD is Attending Physician. tw4 19:25 Inserted Accessed peripheral vein via ultrasound, utilizing dynamic ultrasound mt2 technique using 18G Sureflo IV catheter ,sterile technique, Clean \T\ dry. Dressing intact. Good blood return. Flushes easily. 19:30 Patient has correct armband on for positive identification. Placed in gown. Bed in low mt2 position. Call light in reach. Side rails up X2. monitor technician on. Pulse ox on. NIBP on. Warm blanket given. 19:32 Jacklyn Dickson, RN is Primary Nurse. mt2 19:34 Gr cath inserted, using sterile technique, 16 Fr., by ok, balloon inflated, to mt2 gravity drainage, urine specimen collected. 19:59 CT Head C Spine In Process Unspecified. EDMS 20:28 CXR XRAY In Process Unspecified. EDMS 20:45 Rigo Marcus PA is Hospitalizing Provider. tw4 21:47 Hospitalizing Provider role handed off by Rigo Marcus PA tw4 21:47 Tracey Nieto MD is Hospitalizing Provider. tw4 23:00 No provider procedures requiring assistance completed. Patient admitted, IV remains in mt2 place. Administered Medications: 19:53 Drug: NARcan 1 mg Route: IVP; Site: right upper arm; mt2 20:25 Follow up: Response: No adverse reaction mt2 Outcome: 20:45 Decision to Hospitalize by Provider. tw4 23:00 Admitted to ER Hold. Please see [facility] for further documentation. mt2 23:00 Condition: unchanged 23:00 Instructed on the need for admit. 11/06 11:55 Patient left the ED. ph Signatures: Dispatcher [employer] EDLA Ad Fuentes, RN Mary Leos, RN RN lp1 Callie Hernandez RN RN ph Wadley, Terrence, MD MD tw4 Carmen Gomez RN RN ll1 Jacklyn Dickson RN RN mt2
--- NOTE | 2019-11-06 20:45 | EDPHYS ---
Physician Documentation [facility] Name: Deacon Howe Jr Age: 83 yrs Sex: Male : 1935 Arrival Date: 11/06/2019 Time: 19:05 Bed 7 Private MD: ED Physician Jim Colby HPI: 11/05 23:31 This 83 yrs old Black Male presents to ER via EMS with complaints of Overdose. tw4 23:31 The patient presents with decreased mental status, decreased responsiveness. Onset: The tw4 symptoms/episode began/occurred at an unknown time. Possible causes: alcohol, has a history of chronic alcohol abuse, head injury, unknown. Associated signs and symptoms: The patient has no apparent associated signs or symptoms. Unable to obtain HPI due to altered mental status. Historical: - Allergies: 19:13 NKDA; ll1 - PMHx: 19:13 Chronic pain; colon cancer; Hepatitis; HIV; Hypertension; ll1 - Immunization history:: Adult Immunizations unknown. - Social history:: Smoking status: unknown. ROS: 23:31 Constitutional: Negative for fever, chills, and weight loss. tw4 23:31 Unable to obtain ROS due to altered mental status. Exam: 23:31 Head/Face: Normocephalic, atraumatic. Chest/axilla: Normal chest wall appearance and tw4 motion. Nontender with no deformity. No lesions are appreciated. Cardiovascular: Regular rate and rhythm with a normal S1 and S2. No gallops, murmurs, or rubs. Normal PMI, no JVD. No pulse deficits. Respiratory: Lungs have equal breath sounds bilaterally, clear to auscultation and percussion. No rales, rhonchi or wheezes noted. No increased work of breathing, no retractions or nasal flaring. 23:31 Back: No spinal tenderness. No costovertebral tenderness. Full range of motion. MS/ Extremity: Pulses equal, no cyanosis. Neurovascular intact. Full, normal range of motion. 23:31 Constitutional: The patient appears comatose. 23:31 Neuro: Orientation: unable to test, the patient is comatose, Mentation: somnolent, Motor: moves all fours. Vital Signs: 19:11 BP 106 / 68; Pulse 83; Resp 16; Temp 96.2(A); Pulse Ox 98% on R/A; Pain 0/10; ll1 19:33 BP 127 / 68; Pulse 85; Resp 15; Temp 96.7; Pulse Ox 97% on R/A; Pain 0/10; mt2 20:30 BP 133 / 83; Pulse 91; Resp 22; Pulse Ox 98% on R/A; Pain 0/10; mt2 21:30 BP 128 / 95; Pulse 81; Resp 16; Pulse Ox 96% on R/A; Pain 0/10; mt2 22:30 BP 118 / 71; Pulse 78; Resp 16; Temp 97.0(C); Pulse Ox 98% ; Pain 0/10; mt2 MDM: 19:14 Patient medically screened. tw4 23:41 Data reviewed: vital signs, nurses notes. Data reviewed: lab test result(s), cardiac tw4 enzymes, CBC, electrolytes, hepatic panel, radiologic studies, CT scan. Data interpreted: Pulse oximetry: Interpretation: borderline. Counseling: I had a detailed discussion with the patient and/or guardian regarding: the historical points, exam findings, and any diagnostic results supporting the discharge/admit diagnosis, lab results, radiology results. Special discussion: I discussed with the patient/guardian in detail that at this point there is no indication for admission to the hospital. It is understood, however, that if the symptoms persist or worsen the patient needs to return immediately for re-evaluation. 11/05 19:16 Order name: UDS; Complete Time: 20:16 tw4 11/05 20:16 Interpretation: Normal except: PADMAJA POSITIVE. 11/05 19:16 Order name: Basic Metabolic Panel; Complete Time: 20:16 tw4 11/05 20:16 Interpretation: Normal except: CL 111; GFR 65. 11/05 19:16 Order name: CBC with Diff; Complete Time: 20:16 tw4 11/05 20:16 Interpretation: Normal except: MCH 26.2; RDW 16.6. 11/05 19:16 Order name: Ckmb; Complete Time: 20:16 4 11/05 20:17 Interpretation: Within normal limits: CKMB 3.2. tw11/05 19:16 Order name: CPK; Complete Time: 20:16 tw4 11/05 20:17 Interpretation: Within normal limits: CPK 123. tw4 24 19:16 Order name: Hepatic Function; Complete Time: 20:16 tw4 11/05 20:16 Interpretation: Normal except: BILID 0.3; ALB 3.1; GLOB 3.8; A/G 0.8. 11/05 19:16 Order name: Lipase; Complete Time: 20:16 tw4 11/05 20:17 Interpretation: Within normal limits: LIP 79. 11/05 19:16 Order name: Magnesium; Complete Time: 20:16 11/05 20:17 Interpretation: Within normal limits: MG 2.0. 11/05 19:16 Order name: Protime (+inr); Complete Time: 20:16 11/05 20:17 Interpretation: Within normal limits: PT 12.1. 11/05 19:16 Order name: Ptt, Activated; Complete Time: 20:16 11/05 20:17 Interpretation: Within normal limits: PTT 28.6. 11/05 19:16 Order name: Troponin (emerg Dept Use Only); Complete Time: 20:16 11/05 20:17 Interpretation: Within normal limits: TROPED < 0.02. 11/05 19:25 Order name: Urine Dipstick--Ancillary (enter results); Complete Time: 20:16 3 11/05 20:16 Interpretation: Normal except: USPGR >1.030; UBLD 1+; UPROT 2+. 11/05 22:10 Order name: COVID-19 lp1 11/05 23:41 Order name: SARS-COV-2 RT PCR; Complete Time: 23:49 EDMS 11/05 19:16 Order name: CT Head C Spine; Complete Time: 20:44 11/05 19:16 Order name: EKG; Complete Time: 19:17 tw11/05 19:16 Order name: Cardiac monitoring; Complete Time: 19:24 11/05 19:16 Order name: EKG - Nurse/Tech; Complete Time: 19:24 tw4 11/05 19:16 Order name: IV Saline Lock; Complete Time: 19:33 tw4 11/05 19:16 Order name: Labs collected and sent; Complete Time: 19:33 11/05 19:16 Order name: NPO; Complete Time: 19:33 tw4 11/05 19:16 Order name: O2 Per Protocol; Complete Time: 19:33 tw4 11/05 19:16 Order name: O2 Sat Monitoring; Complete Time: 19:33 tw4 11/05 20:05 Order name: CXR XRAY; Complete Time: 20:44 tw4 11/06 06:48 Order name: CBC with Automated Diff; Complete Time: 06:51 EDMS 11/06 06:52 Interpretation: Normal except: RBC 5.66; MCV 79.7; MCH 26.2; RDW 17.2; MPV 7.0. tw4 11/06 06:55 Order name: Protime (+INR) EDMS 11/06 06:55 Order name: PTT, Activated Partial Thromb EDMS 11/06 06:59 Order name: Comprehensive Metabolic Panel EDMS 11/06 06:59 Order name: Magnesium EDMS 11/05 19:16 Order name: Urine Dipstick-Ancillary (obtain specimen); Complete Time: 19:33 tw4 EC:31 Rate is 80 beats/min. Rhythm is regular, Sinus Rhythm. QRS [place] is Normal. DC interval tw4 is normal. QRS interval is normal. QT interval is normal. No Q waves. T waves are Normal. No ST changes noted. Clinical impression: NSR w/ Non-specific ST/T Changes. Interpreted by me. Reviewed by me. Administered Medications: 19:53 Drug: NARcan 1 mg Route: IVP; Site: right upper arm; mt2 20:25 Follow up: Response: No adverse reaction mt2 Disposition: 11/06/19 20:45 Hospitalization ordered by Tracey Nieto for Inpatient Admission. Preliminary diagnosis is Altered mental status, unspecified. - Bed requested for [facility] ER HOLD. - Status is Inpatient Admission. ph - Condition is Stable. - Problem is new. - Symptoms are unchanged. Signatures: Dispatcher [employer] EDMS Callie Hernandez RN RN ph Garcia, Cindy, RN RN cg Wadley, Terrence, MD MD tw4 Carmen Gomez RN RN ll1 Jacklyn Dickson RN RN mt2 Corrections: (The following items were deleted from the chart) 21:47 20:45 Hospitalization Ordered by Rigo SAENZ for Inpatient Admission. tw4 Preliminary diagnosis is Altered mental status, unspecified. Bed requested for Telemetry/MedSurg (Inpatient). Status is Inpatient Admission. Condition is Stable. Problem is new. Symptoms are unchanged. 22:56 21:47 11/06/2019 20:45 Hospitalization Ordered by Tracey Nieto MD for Inpatient cg Admission. Preliminary diagnosis is Altered mental status, unspecified. Bed requested for Telemetry/MedSurg (Inpatient). Status is Inpatient Admission. Condition is Stable. Problem is new. Symptoms are unchanged. 11/06 11:55 11/05 22:56 11/06/2019 20:45 Hospitalization Ordered by Tracey Nieto MD for Inpatient ph Admission. Preliminary diagnosis is Altered mental status, unspecified. Bed requested for [facility] ER HOLD. Status is Inpatient Admission. Condition is Stable. Problem is new. Symptoms are unchanged. cg
--- NOTE | 2019-11-06 22:30 | P.HP ---
Certification for Inpatient With expected LOS: >2 Midnights Patient will require the following post-hospital care: None Practitioner: I am a practitioner with admitting privileges, knowledge of patient current condition, hospital course, and medical plan of care. Services: Services provided to patient in accordance with Admission requirements found in Title 42 Section 412.3 of the Code of Federal Regulations <Rigo Marcus - Last Filed: 11/06/19 23:07> Patient History Date of Service: 11/06/19 Reason for admission: Altered mental status History of Present Illness: 83-year-old male with a past medical history of chronic pain, colon cancer, hepatitis, HIV and hypertension as well as cocaine abuse presents to the emergency room brought by EMS after being found unresponsive. Per EMS statement. Patient was found unresponsive. Family member state patient was using cocaine. He also has a history of alcohol abuse but it is unknown at this time if he has been drinking. Patient responds to painful stimuli only. In the emergency room patient is lethargic. He will respond to painful stimuli with sternal rub but quickly goes back to sleep. Patient opens his eyes and tries to talk but mumbles. ED lab work shows positive cocaine and rest of exam is fairly unremarkable. CT of the head and spine are negative for acute pathology. Chest x-ray was negative for acute pathology. Patient was also given Narcan with no significant improvement. Patient will be admitted to the ICU and further evaluated. Home medications list reviewed: No - Past Medical/Surgical History Diabetic: No -: Hypertension -: Alcohol use -: Colon cancer -: Cholecystectomy -: Partial Colectomy -: hip replacement -: Cataracts surgery right eye Psychosocial/ Personal History: Unknown - Family History Family History: Reviewed- Non-Contributory - Social History Smoking Status: Unknown if ever smoked Alcohol use: Yes CD- Drugs: No Caffeine use: No Place of Residence: Home <Rigo Marcus - Last Filed: 11/06/19 23:07> Date of Service: 11/07/19 <Tracey Nieto - Last Filed: 11/10/19 09:41> Allergies No Known Drug Allergies Allergy (Verified 10/10/14 10:02) Unknown Home Medications: levoFLOXacin [Levaquin] 500 mg PO DAILY #5 tab 06/24/18 Review of Systems is unable to be obtained <Rigo Marcus - Last Filed: 11/06/19 23:07> Physical Examination - Vital Signs Temperature: 96.2 F Blood Pressure: 106/68 Pulse: 83 Respirations: 16 Pulse Ox (%): 97 (RA) - Physical Exam General: Confused, Other (Will respond to painful stimuli. Lethargic) HEENT: Atraumatic, Normocephalic, PERRLA, Mucous membr. moist/pink Neck: Supple, Other (Trachea midline) Respiratory: Clear to auscultation bilaterally, Normal air movement Cardiovascular: No edema, Normal pulses, Normal S1 S2 Capillary refill: <2 Seconds Gastrointestinal: Normal bowel sounds, Soft and benign Musculoskeletal: No clubbing, No swelling, No contractures, No erythema Integumentary: No rashes, No breakdown, No significant lesion Neurological: Abnormal speech - Studies Laboratory Data (last 24 hrs) 11/06/19 19:28: PT 12.1, INR 1.03, APTT 28.6 11/06/19 19:28: WBC 5.0, Hgb 14.2, Hct 43.7, Plt Count 239 11/06/19 19:28: Sodium 142, Potassium 3.8, BUN 17, Creatinine 1.28, Glucose 100, Magnesium 2.0, Total Bilirubin 0.8, AST 27, ALT 32, Alkaline Phosphatase 87, Lipase 79 <Rigo Marcus - Last Filed: 11/06/19 23:07> Assessment and Plan - Plan Impression: Altered mental status of unknown etiology: Drug abuse: Alcohol abuse: Plan: Altered mental status of unknown etiology: Etiology of altered mental status is unclear. Patient does have a history of cocaine abuse and alcohol abuse but he was found unresponsive. Imaging of the head and spine was negative for acute pathology. Chest x-ray was negative. Patient was also given Narcan with minimal improvement. Will place on continuous telemetry, gentle IV hydration. Patient would likely benefit from an MRI of the brain if tolerated and neurology consult. Drug abuse: Patient has a history of drug abuse in particular cocaine. ER screening shows positive for cocaine. Alcohol abuse: Patient has a history of alcohol abuse. It is unclear if the patient was drinking prior to being found by EMS. Discharge Plan: Other (Unknown) Plan to discharge in: Unknown - Advance Directives Does patient have a Living Will: No Does patient have a Durable POA for Healthcare: No - Code Status/Comfort Care Code Status Assessed: Yes Time Spent Managing Pts Care (In Minutes): 55 <Rigo Marcus - Last Filed: 11/06/19 23:07> - Problems (Diagnosis) (1) Altered mental state Onset Date: 10/10/14 Status: Acute (2) Cocaine abuse Onset Date: 10/10/14 Status: Acute (3) Generalized weakness Status: Acute (4) HTN (hypertension) Onset Date: 10/10/14 Status: Acute (5) Nausea & vomiting Onset Date: 06/27/15 Status: Acute <Tracey Nieto - Last Filed: 11/10/19 09:41> Date of Service: 11/07/19 Patient was admitted with altered mentation. Patient appeared to have substance abuse. Anticipate discharge home in the morning. Physical exam: Vitals: Reviewed Cardiovascular exam: Regular rate rhythm no murmurs Neuro: Patient awake and alert. Oriented to person and place, not to time; generalized weakness Assessment: 1. Altered mentation 2. Polysubstance abuse Plan: 1. IV hydration 2. Monitor neurologically 3. GI and DVT prophylaxis <Tracey Nieto - Last Filed: 11/10/19 09:41>
[2019-11-07] MEDS: NA CHLORIDE 0.9% 1,000 ML IV SCH ×2 (00:14→12:15)
[2019-11-07 01:53] VITALS: BMI 2538.6
[2019-11-07 06:40] LABS: Absolute Lymphocytes (CBC) 0.9 K/uL (0.7-4.9); Basophils % 0.7 % (0-1.3); Hematocrit 45.1 % (39.6-49.0); Lymphocytes % 17.8 % (15.3-44.8); RBC Red Blood Cell Count 5.66 M/uL (4.33-5.43)
[2019-11-07 06:54] LABS: Protime INR 0.99
[2019-11-07 06:59] LABS: ALT/SGPT 29 U/L (12-78); AST/SGOT 24 U/L (15-37); Alkaline Phosphatase 78 U/L (45-117); BUN Blood Urea Nitrogen 12 mg/dL (7-18); Bicarbonate 25 mmol/L (21-32); Bilirubin Total 1.2 mg/dL (0.2-1.0); Glucose Level 86 mg/dL (74-106); Magnesium 2.1 mg/dL (1.8-2.4); Potassium 3.7 mmol/L (3.5-5.1); Protein, Total 6.7 g/dL (6.4-8.2); Sodium Level 143 mmol/L (136-145)
[2019-11-07] MEDS: ENOXAPARIN 40 MG/0.4 ML SQ SCH (09:30)
[2019-11-07 09:51] VITALS: O2SAT 97
[2019-11-07] MEDS ORDERED: NA CHLORIDE 0.9% 1,000 ML ONE (12:24)
[2019-11-07] MEDS ORDERED: ACETAMINOPHEN 500 MG TAB PO PRN (20:37)
[2019-11-08 03:18] LABS: Urine Appearance CLEAR; Urine Bilirubin NEGATIVE (NEG); Urine Blood 2+ (NEG); Urine Color YELLOW; Urine Glucose NEGATIVE (NEG); Urine Protein NEGATIVE (NEG); Urine Urobilinogen 0.2 mg/dL (0.2-1.0); Urine pH 5.5 (5.0-7.0)
[2019-11-08 03:41] LABS: Urine Microscopic Reflex ORDER UMIC
[2019-11-08 04:51] LABS: Urine Bacteria <20 /HPF (NONE SEEN); Urine Culture Reflex Order NOT NEEDED
[2019-11-08 05:18] VITALS: BP 149/85; TEMP 97.2
--- NOTE | 2019-11-08 07:35 | EKG ---
Test Date: 2019-11-06 Test Time: 19:23:28 Hunter: DAHIANA MEASUREMENT RESULTS: Intervals: Rate: 80 MO: 196 QRSD: 84 QT: 376 QTc: 433 [place]: P: 48 MO: 196 QRS: 82 T: 56 INTERPRETIVE STATEMENTS: Sinus rhythm with premature atrial complexes Septal infarct, age undetermined Abnormal ECG Compared to ECG 10/11/2019 11:46:41 Atrial premature complex(es) now present Myocardial infarct finding now present Electronically Signed On 11-08-19 07:32:41 CDT by Rocco Menjivar
[2019-11-08 08:13] LABS: BUN Blood Urea Nitrogen 14 mg/dL (7-18); Bicarbonate 27 mmol/L (21-32); Glucose Level 88 mg/dL (74-106); Potassium 4.1 mmol/L (3.5-5.1); Sodium Level 140 mmol/L (136-145)
[2019-11-08] MEDS: ENOXAPARIN 40 MG/0.4 ML SQ SCH (08:57)
--- NOTE | 2019-11-08 09:00 | P.PN ---
Subjective Date of Service: 11/07/19 Patient improving. Following commands. Will go ahead and start him on a diet and see how he tolerates it. Will try to get him out of bed and ambulate as well. If he does well then possible discharge in a.m.. Review of Systems 10-point ROS is otherwise unremarkable Physical Examination - Vital Signs Temperature: 97.2 F Blood Pressure: 149/85 Pulse: 62 Respirations: 18 Pulse Ox (%): 98 - Physical Exam General: Alert, In no apparent distress, Oriented x3 Respiratory: Clear to auscultation bilaterally, Normal air movement Cardiovascular: Regular rate/rhythm, Normal S1 S2, No murmurs Gastrointestinal: Normal bowel sounds, Soft and benign, Non-distended, No tenderness Musculoskeletal: No clubbing, No swelling, No tenderness Neurological: Normal strength at 5/5 x4 extr, Sensation intact, Cranial nerves 3-12 intact - Studies Medications List Reviewed: Yes Assessment & Plan - Problems (Diagnosis) (1) Altered mental state Onset Date: 10/10/14 Current Visit: No Status: Acute (2) Cocaine abuse Onset Date: 10/10/14 Current Visit: No Status: Acute (3) Generalized weakness Current Visit: No Status: Acute (4) HTN (hypertension) Onset Date: 10/10/14 Current Visit: No Status: Acute (5) Nausea & vomiting Onset Date: 06/27/15 Current Visit: No Status: Acute - Plan Plan: 1. IV hydration 2. Out of bed and ambulate 3. Advanced diet as tolerated 4. Monitor labs and renal function closely 5. GI and DVT prophylaxis Discharge Plan: Home Plan to discharge in: Greater than 2 days - Advance Directives Does patient have a Living Will: No Does patient have a Durable POA for Healthcare: No - Code Status/Comfort Care Code Status Assessed: Yes Code Status: Full Code Critical Care: No Time Spent Managing PTS Care (In Minutes): 30
[2019-11-08] MEDS: NA CHLORIDE 0.9% 1,000 ML IV SCH (09:01)
--- NOTE | 2019-11-10 09:42 | P.DS ---
Discharge Date: 11/08/19 Disposition: ROUTINE DISCHARGE Discharge Condition: GOOD Reason for Admission: Altered mental status - Problems (1) Altered mental state Onset Date: 10/10/14 Status: Acute (2) Cocaine abuse Onset Date: 10/10/14 Status: Acute (3) Generalized weakness Status: Acute (4) HTN (hypertension) Onset Date: 10/10/14 Status: Acute (5) Nausea & vomiting Onset Date: 06/27/15 Status: Acute Brief History of Present Illness: Patient is an 83-year-old gentleman who was admitted to the hospital with altered mentation and generalized weakness. Patient had polysubstance abuse. At this time, patient will be admitted for the hospital for further evaluation. Hospital Course: Patient has done well during hospital stay. Patient is clinically doing well. At this time, patient is stable for discharge home. Vital Signs/Physical Exam: Temp Pulse Resp BP Pulse Ox 97.2 F 62 18 149/85 H 98 11/08/19 09:00 11/08/19 09:00 11/08/19 09:00 11/08/19 09:00 11/08/19 09:00 General: Alert, In no apparent distress, Oriented x3 Laboratory Data at Discharge: WBC 4.9 K/uL (4.3-10.9) 11/07/19 06:21 Hgb 14.8 g/dL (13.6-17.9) 11/07/19 06:21 Hct 45.1 % (39.6-49.0) 11/07/19 06:21 Plt Count 215 K/uL (152-406) 11/07/19 06:21 PT 11.7 SECONDS (9.5-12.5) 11/07/19 06:21 INR 0.99 11/07/19 06:21 APTT 31.8 SECONDS (24.3-36.9) 11/07/19 06:21 Sodium 140 mmol/L (136-145) 11/08/19 07:35 Potassium 4.1 mmol/L (3.5-5.1) 11/08/19 07:35 BUN 14 mg/dL (7-18) 11/08/19 07:35 Creatinine 0.92 mg/dL (0.55-1.3) 11/08/19 07:35 Glucose 88 mg/dL (74-106) 11/08/19 07:35 Magnesium 2.1 mg/dL (1.8-2.4) 11/07/19 06:21 Total Bilirubin 1.2 mg/dL (0.2-1.0) H 11/07/19 06:21 AST 24 U/L (15-37) 11/07/19 06:21 ALT 29 U/L (12-78) 11/07/19 06:21 Alkaline Phosphatase 78 U/L (45-117) 11/07/19 06:21 Lipase 79 U/L (73-393) 11/06/19 19:28 Home Medications: levoFLOXacin [Levaquin] 500 mg PO DAILY #5 tab 06/24/18 Patient Discharge Instructions: OK TO DC IV AND DC HOME. FOLLOW-UP WITH PRIMARY CARE PROVIDER IN 1-2 WEEKS. REFRAIN FROM SUBSTANCE ABUSE RISK OF CARDIAC DISEASE INCREASES SUBSTANTIALLY WE GET OLDER. RETURN TO THE ER IF symptoms worsen. CALL or TEXT DR. CURTIS AT [phone] IF ANY QUESTIONS REGARDING HOSPITAL STAY. PLEASE CALL THE FLOOR AT [phone] IF ANY MEDICATION OR NURSING QUESTIONS. Diet: AHA Activity: Fall precautions Time spent managing pt's care (in minutes): 25
== END 2019-11-08 11:58 | disposition home or self-care (01) | DRG 948 ==
LOC: ER 19:02 → ERHOLD 22:23 → 2ND 11-07 16:11
PROVIDERS: ADMIT Hospitalist; ATTEND Hospitalist
DX: R41.82 Altered mental status, unspecified (principal); R53.1 Weakness; I10 Essential (primary) hypertension; F19.10 Other psychoactive substance abuse, uncomplicated; F10.10 Alcohol abuse, uncomplicated; R11.2 Nausea with vomiting, unspecified; Z85.038 Personal history of other malignant neoplasm of large intestine; Z96.649 Presence of unspecified artificial hip joint; Z79.899 Other long term (current) drug therapy; Z90.49 Acquired absence of other specified parts of digestive tract; Z11.59 Encounter for screening for other viral diseases
CPT/HCPCS: 36415; 51702; 70450; 71045; 72125; 80048; 80053; 80076; 80307; 81003; 81015; 82550; 82553; 83690; 83735; 84484; 85025; 85610; 85730; 93005; 94760; 96374; 99291; J1650; J2310; J7030; U0003

== ENCOUNTER 2019-12-14 13:14 | Emergency (ER) | payer OTHER ==
[2019-12-14 14:09] LABS: Absolute Lymphocytes (CBC) 1.2 K/uL (0.7-4.9); Basophils % 0.8 % (0-1.3); Hematocrit 49.7 % (39.6-49.0); Lymphocytes % 26.7 % (15.3-44.8); MPV 7.6 fL (7.6-11.3); RBC Red Blood Cell Count 6.23 M/uL (4.33-5.43)
[2019-12-14 14:38] LABS: Protime INR 1.03
[2019-12-14 14:54] LABS: ALT/SGPT 24 U/L (12-78); AST/SGOT 22 U/L (15-37); Albumin 3.1 g/dL (3.4-5.0); Alkaline Phosphatase 76 U/L (45-117); BUN Blood Urea Nitrogen 24 mg/dL (7-18); Bicarbonate 25 mmol/L (21-32); Bilirubin Direct 0.2 mg/dL (0-0.2); Bilirubin Total 0.5 mg/dL (0.2-1.0); Glucose Level 105 mg/dL (74-106); Magnesium 2.2 mg/dL (1.8-2.4); NT PRO-BNP 114 pg/mL (<450); Potassium 4.1 mmol/L (3.5-5.1); Protein, Total 6.8 g/dL (6.4-8.2); Sodium Level 139 mmol/L (136-145); Troponin (Emerg Dept Use Only) < 0.02 ng/mL (0.0-0.045)
[2019-12-14] MEDS ORDERED: NA CHLORIDE 0.9% 500 ML ONE (15:55)
--- NOTE | 2019-12-14 17:45 | EDPHYS ---
Physician Documentation [facility] Name: Deacon Howe Jr Age: 84 yrs Sex: Male : 1935 Arrival Date: 12/14/2019 Time: 13:15 Bed 8 Private MD: ED Physician Gato Rodriguez HPI: 12/14 10:20 This 84 yrs old Black Male presents to ER via EMS with complaints of Chest Pain. kdr 10:20 The patient or guardian reports chest pain that is located primarily in the anterior kdr chest wall, bilaterally. Onset: suddenly, just prior to arrival. The pain does not radiate. Associated signs and symptoms: Pertinent positives: General weakness, Pertinent negatives: abdominal pain, cough, diaphoresis, lightheadedness, nausea, near syncope, shortness of breath. The chest pain is described as aching, burning, dull. Duration: The patient or guardian reports multiple episodes, that are intermittent, that wax and wane, with no pattern, May be related to cocaine use. Modifying factors: The symptoms are alleviated by nothing. the symptoms are aggravated by nothing. Severity of pain: At its worst the pain was mild in the emergency department the pain has resolved. The patient has experienced similar episodes in the past, multiple times, chronically. The patient has been recently seen by a physician: The patient has been recently seen at the [facility] Emergency Department. Historical: - Allergies: 12/13 13:20 NKDA; ss - PMHx: 13:20 Chronic pain; colon cancer; Hepatitis; HIV; Hypertension; ss - Immunization history:: Adult Immunizations up to date. - Social history:: Smoking status: Patient denies any tobacco usage or history of. ROS: 12/14 10:20 Constitutional: Negative for fever, chills, and weight loss, Eyes: Negative for injury, kdr pain, redness, and discharge, Neck: Negative for injury, pain, and swelling, Respiratory: Negative for shortness of breath, cough, wheezing, and pleuritic chest pain, Abdomen/GI: Negative for abdominal pain, nausea, vomiting, diarrhea, and constipation, Back: Negative for injury and pain, : Negative for injury, bleeding, discharge, and swelling, MS/Extremity: Negative for injury and deformity, Skin: Negative for injury, rash, and discoloration, Neuro: Negative for headache, weakness, numbness, tingling, and seizure activity. Psych: Negative for depression, anxiety, suicide ideation, homicidal ideation, and hallucinations, Allergy/Immunology: Negative for hives, rash, and allergies, Endocrine: Negative for neck swelling, polydipsia, polyuria, polyphagia, and marked weight changes, Hematologic/Lymphatic: Negative for swollen nodes, abnormal bleeding, and unusual bruising. Cardiovascular: Positive for chest pain, Negative for edema, orthopnea, palpitations, paroxysmal nocturnal dyspnea. Exam: 10:22 Constitutional: This is a well developed, well nourished patient who is awake, alert, kdr and in no acute distress. Head/Face: Normocephalic, atraumatic. Eyes: Pupils equal round and reactive to light, extra-ocular motions intact. Lids and lashes normal. Conjunctiva and sclera are non-icteric and not injected. Cornea within normal limits. Periorbital areas with no swelling, redness, or edema. Neck: Trachea midline, no thyromegaly or masses palpated, and no cervical lymphadenopathy. Supple, full range of motion without nuchal rigidity, or vertebral point tenderness. No Meningismus. Chest/axilla: Normal chest wall appearance and motion. Nontender with no deformity. No lesions are appreciated. Cardiovascular: Regular rate and rhythm with a normal S1 and S2. No gallops, murmurs, or rubs. Normal PMI, no JVD. No pulse deficits. Respiratory: Lungs have equal breath sounds bilaterally, clear to auscultation and percussion. No rales, rhonchi or wheezes noted. No increased work of breathing, no retractions or nasal flaring. Abdomen/GI: Soft, non-tender, with normal bowel sounds. No distension or tympany. No guarding or rebound. No evidence of tenderness throughout. Back: No spinal tenderness. No costovertebral tenderness. Full range of motion. Skin: Warm, dry with normal turgor. Normal color with no rashes, no lesions, and no evidence of cellulitis. MS/ Extremity: Pulses equal, no cyanosis. Neurovascular intact. Full, normal range of motion. Neuro: Awake and alert, GCS 15, oriented to person, place, time, and situation. Cranial nerves II-XII grossly intact. Motor strength 5/5 in all extremities. Sensory grossly intact. Cerebellar exam normal. Normal gait. Psych: Awake, alert, with orientation to person, place and time. Behavior, mood, and affect are within normal limits. 10:28 ECG was reviewed by the Attending Physician. kdr Vital Signs: 12/13 13:16 BP 107 / 67; Pulse 76; Resp 16; Temp 97.9(TE); Pulse Ox 100% on R/A; Weight 70.31 kg; ss Height 6 ft. 2 in. (187.96 cm); Pain 6/10; 13:16 Body Mass Index 19.90 (70.31 kg, 187.96 cm) ss MDM: 17:44 Patient medically screened. kdr 12/14 10:22 Data reviewed: vital signs, nurses notes, lab test result(s), EKG, radiologic studies. kdr Counseling: I had a detailed discussion with the patient and/or guardian regarding: the historical points, exam findings, and any diagnostic results supporting the discharge/admit diagnosis, lab results, radiology results, the need for outpatient follow up. 12/13 13:17 Order name: Basic Metabolic Panel; Complete Time: 15:04 kdr 12/13 13:17 Order name: CBC with Diff; Complete Time: 15:04 kdr 12/13 13:17 Order name: LFT's; Complete Time: 15:04 kdr 12/13 13:17 Order name: Magnesium; Complete Time: 15:04 kdr 12/13 13:17 Order name: NT PRO-BNP; Complete Time: 15:04 kdr 12/13 13:17 Order name: PT-INR; Complete Time: 15:04 kdr 12/13 13:17 Order name: Troponin (emerg Dept Use Only); Complete Time: 15:04 kdr 12/13 13:17 Order name: XRAY Chest (1 view) kdr 12/13 13:17 Order name: EKG; Complete Time: 13:18 kdr 12/13 13:17 Order name: Cardiac monitoring; Complete Time: 13:54 kdr 12/13 13:17 Order name: EKG - Nurse/Tech; Complete Time: 13:54 kdr 12/13 13:17 Order name: IV Saline Lock; Complete Time: 13:54 kdr 12/13 15:59 Order name: Troponin (emerg Dept Use Only); Complete Time: 17:43 kdr 12/13 13:17 Order name: Labs collected and sent; Complete Time: 13:54 kdr 12/13 13:17 Order name: O2 Per Protocol; Complete Time: 13:54 kdr 12/13 13:17 Order name: O2 Sat Monitoring; Complete Time: 13:54 kdr 12/13 14:14 Order name: Labs - recollect needed; Complete Time: 14:32 mt EC:28 Rate is 71 beats/min. Rhythm is regular, Normal Sinus Rhythm with No ectopy. QRS Dennis kdr is Normal. SD interval is normal. QRS interval is normal. QT interval is normal. Clinical impression: Normal ECG. Administered Medications: 12/13 15:47 Drug: NS 0.9% 500 ml Route: IV; Rate: bolus; Site: right antecubital; iw 16:16 Follow up: IV Status: Completed infusion ss Disposition: 12/14/19 17:44 Discharged to Home. Impression: Chest pain, unspecified, Dehydration, Malaise and fatigue. - Condition is Stable. - Discharge Instructions: Dehydration, Elderly, Nonspecific Chest Pain, [id number]. - Medication Reconciliation Form, Thank You Letter form. - Follow up: Private Physician; When: 2 - 3 days; Reason: If symptoms return, Further diagnostic work-up, Recheck today's complaints, Continuance of care, Re-evaluation by your physician. - Problem is an acute exacerbation. - Symptoms have improved. Signatures: Dispatcher [employer] EDMS Gato Rodriguez MD MD kdr Sapphire Benitez RN RN Tae Jo RN RN Paulette Varela pa Corrections: (The following items were deleted from the chart) 17:55 17:44 12/14/2019 17:44 Discharged to Home. Impression: Chest pain, unspecified; ss Dehydration; Malaise and fatigue. Condition is Stable. Forms are Medication Reconciliation Form, Thank You Letter, Antibiotic Education, Prescription Opioid Use. Follow up: Private Physician; When: 2 - 3 days; Reason: If symptoms return, Further diagnostic work-up, Recheck today's complaints, Continuance of care, Re-evaluation by your physician. Problem is an acute exacerbation. Symptoms have improved. kdr
--- NOTE | 2019-12-14 17:45 | ER ---
Nurse's Notes [facility] Name: Deacon Howe Jr Age: 84 yrs Sex: Male : 1935 Arrival Date: 12/14/2019 Time: 13:15 Bed 8 Private MD: Diagnosis: Chest pain, unspecified;Dehydration;Malaise and fatigue Presentation: 12/13 13:16 Chief complaint: Patient states: Chest pain that began last night. Pt reports he last ss used cocaine yesterday evening. Coronavirus screen: Client denies travel out of the [place] in the last 14 days. Ebola Screen: Patient denies exposure to infectious person. Patient denies travel to an Ebola-affected area in the 21 days before illness onset. Initial Sepsis Screen: Does the patient meet any 2 criteria? No. Patient's initial sepsis screen is negative. Does the patient have a suspected source of infection? No. Patient's initial sepsis screen is negative. Risk Assessment: Do you want to hurt yourself or someone else? Patient reports no desire to harm self or others. Onset of symptoms was December 13, 2019. 13:16 Method Of Arrival: EMS: [facility] 13:16 Acuity: ALIN 3 ss Historical: - Allergies: 13:20 NKDA; ss - PMHx: 13:20 Chronic pain; colon cancer; Hepatitis; HIV; Hypertension; ss - Immunization history:: Adult Immunizations up to date. - Social history:: Smoking status: Patient denies any tobacco usage or history of. Screenin:50 Abuse screen: Denies threats or abuse. Nutritional screening: No deficits noted. em Tuberculosis screening: No symptoms or risk factors identified. Fall Risk None identified. Assessment: 13:25 General: Appears in no apparent distress. comfortable, Behavior is calm, cooperative, ss Reports feeling ill for 12-24 hours, pt reports by feeling ill he is having CP since last night after using cocaine. Denies fever, fatigue, chills. Pain: Complains of pain in chest Pain does not radiate. Pain currently is 6 out of 10 on a pain scale. Quality of pain is described as aching, Pain began last night Is continuous. Neuro: Level of Consciousness is awake, alert, obeys commands, Oriented to person, place, time, situation. Cardiovascular: Capillary refill < 3 seconds is brisk in bilateral fingers. Respiratory: Airway is patent Trachea midline Respiratory effort is even, unlabored, Respiratory pattern is regular, symmetrical. GI: Patient currently denies abdominal pain, diarrhea, nausea, vomiting. : No signs and/or symptoms were reported regarding the genitourinary system. EENT: Nares are clear Oral mucosa is moist. Throat is clear. Derm: Skin is intact, is healthy with good turgor, Skin is dry, Skin is pink, warm \\T\\ dry. normal. 13:30 Reassessment: Call light remains within reach. Pt is laz, "Nurse!" from exam ss room. Upon entering room, patient is requesting more apple juice and crackers. Apple juice given. 13:45 Reassessment: Patient appears in no apparent distress at this time. Patient and/or ss family updated on plan of care and expected duration. Pain level reassessed. Patient is alert, oriented x 3, equal unlabored respirations, skin warm/dry/pink. Pt laz nurse loudly from exam room though call light remains within reach. Pt is asking for another warm blanket. Additional warm blanket given. Pt is content. 14:51 Reassessment: Pt ambulated to restroom with steady gait. BM x1. Pt now back in exam ss room 8, on monitors. 15:30 Reassessment: Pt ambulated with steady gait to the restroom. BM x1. ss 16:30 Reassessment: Patient requesting additional juice and food. [place] given as well as ss water and apple juice. Call light remains within reach. Vital Signs: 13:16 BP 107 / 67; Pulse 76; Resp 16; Temp 97.9(TE); Pulse Ox 100% on R/A; Weight 70.31 kg; Height 6 ft. 2 in. (187.96 cm); Pain 6/10; 13:16 Body Mass Index 19.90 (70.31 kg, 187.96 cm) ED Course: 13:15 Patient arrived in ED. ss 13:16 Gato Rodriguez MD is Attending Physician. kdr 13:19 Triage completed. ss 13:20 Arm band placed on right wrist. ss 13:49 EKG done, by ED staff, reviewed by Gato Rodriguez MD. dh3 13:50 Patient has correct armband on for positive identification. Placed in gown. Bed in low em position. Call light in reach. Side rails up X2. licensed weigher on. Pulse ox on. NIBP on. 13:52 Initial lab(s) drawn, by me, sent to lab. Inserted saline lock: 22 gauge in right em antecubital area, using aseptic technique. Blood collected. Patient maintains SpO2 saturation greater than 95% on room air. 14:31 XRAY Chest (1 view) In Process Unspecified. EDMS 14:32 Tea Jo, RN is Primary Nurse. ss 17:15 Troponin (emerg Dept Use Only) Sent. 3 17:54 No provider procedures requiring assistance completed. IV discontinued, intact, ss bleeding controlled, No redness/swelling at site. Pressure dressing applied. Administered Medications: 15:47 Drug: NS 0.9% 500 ml Route: IV; Rate: bolus; Site: right antecubital; 16:16 Follow up: IV Status: Completed infusion ss Outcome: 17:44 Discharge ordered by . kdr 17:54 Discharged to home ambulatory. ss 17:54 Condition: good 17:54 Discharge instructions given to patient, Instructed on discharge instructions, follow up and referral plans. Demonstrated understanding of instructions, follow-up care, medications. 17:55 Patient left the ED. ss Signatures: Dispatcher [employer] EDMS Gato Rodriguez MD MD [facility] Ad Fuentes RN RN em Williams, Irene, RN RN Tea Jo, MARYANNE RN Paulette Quiroz [facility]
[2019-12-14 18:09] VITALS: BP 107/67; TEMP 97.9; O2SAT 100
--- NOTE | 2019-12-15 11:41 | EKG ---
Test Date: 2019-12-14 Test Time: 13:49:50 Seismograph Observer: TAYLOR MEASUREMENT RESULTS: Intervals: Rate: 71 SD: 196 QRSD: 78 QT: 392 QTc: 425 [place]: P: 76 SD: 196 QRS: 82 T: 56 INTERPRETIVE STATEMENTS: Normal sinus rhythm Normal ECG Compared to ECG 11/06/2019 19:23:28 Atrial premature complex(es) no longer present Myocardial infarct finding no longer present Electronically Signed On 12-15-19 11:37:39 CDT by Rocco Menjivar
--- NOTE | 2019-12-15 12:28 | RAD REPORT ---
EXAM DESCRIPTION: RAD - Chest Single View - 12/14/2019 10:21 pm CLINICAL HISTORY: CHEST PAIN Chest pain. COMPARISON: Chest Single View dated 11/06/2019; Chest Single View dated 10/08/2019; Chest Single View dated 09/14/2019; Chest Single View dated 06/18/2019 FINDINGS: Portable technique limits examination quality. Emphysematous changes are present with chronic pleural based calcification on the right unchanged. Th e heart is normal in size with a tortuous thoracic aorta. No displaced fractures. IMPRESSION: No acute intrathoracic process suspected.
== END 2019-12-14 17:55 | disposition home or self-care (01) ==
LOC: ER 13:14
DX: E86.0 Dehydration (principal); R53.81 Other malaise; R53.83 Other fatigue; I10 Essential (primary) hypertension; Z21 Asymptomatic human immunodeficiency virus [HIV] infection status; Z85.038 Personal history of other malignant neoplasm of large intestine
CPT/HCPCS: 93005; 85025; 80048; 36415; 83735; 85610; 80076; 84484 ×2; 83880; 71045; 99285; J7040

== ENCOUNTER 2019-12-28 11:02 | Emergency (ER) | payer OTHER ==
[2019-12-28] MEDS ORDERED: LIDOCAINE 1% MPF 30 ML VIAL ONE (12:10)
--- NOTE | 2019-12-28 12:59 | ER ---
Nurse's Notes [facility] Name: Deacon Howe Jr Age: 84 yrs Sex: Male : 1935 Arrival Date: 12/28/2019 Time: 11:04 Bed 19 Private MD: Diagnosis: Cutaneous abscess of buttock Presentation: 12/27 11:22 Chief complaint: Patient states: PCP suggested to patient to come to ER for evaluation ss and treatment of abscess to buttocks x 2 weeks that has been getting worse. Coronavirus screen: Client denies travel out of the [place] in the last 14 days. Ebola Screen: Patient denies exposure to infectious person. Patient denies travel to an Ebola-affected area in the 21 days before illness onset. Initial Sepsis Screen: Does the patient meet any 2 criteria? No. Patient's initial sepsis screen is negative. Does the patient have a suspected source of infection? Yes: Skin breakdown/wound. Risk Assessment: Do you want to hurt yourself or someone else? Patient reports no desire to harm self or others. Onset of symptoms was December 14, 2019. 11:22 Method Of Arrival: Wheelchair ss 11:22 Acuity: ALIN 3 ss Historical: - Allergies: 11:26 NKDA; ss - PMHx: 11:26 Chronic pain; colon cancer; Hepatitis; HIV; Hypertension; ss - Immunization history:: Adult Immunizations up to date. - Social history:: Smoking status: Patient reports the use of cigarette tobacco products, smokes one-half pack cigarettes per day. Screenin:54 Abuse screen: Denies threats or abuse. Denies injuries from another. Nutritional sv screening: No deficits noted. Tuberculosis screening: No symptoms or risk factors identified. Fall Risk None identified. Assessment: 12:19 Reassessment: Dr Fry at the bedside. sv 13:12 Reassessment: Patient appears in no apparent distress at this time. Patient and/or sv family updated on plan of care and expected duration. Pain level reassessed. Patient is alert, oriented x 3, equal unlabored respirations, skin warm/dry/pink. Patient states feeling better. Patient states symptoms have improved. Vital Signs: 11: BP 110 / 51; Pulse 76; Resp 18; Temp 98.2(TE); Pulse Ox 99% on R/A; Weight 72.57 kg; ss Height 6 ft. 2 in. (187.96 cm); Pain 8/10; 11:22 Body Mass Index 20.54 (72.57 kg, 187.96 cm) ED Course: 11:04 Patient arrived in ED. ds1 11:26 Triage completed. ss 11:26 Arm band placed on right wrist. ss 11:36 Gato Fry MD is Attending Physician. kdr 11:49 Awaiting ED provider evaluation. sv 11:53 Kiara Stack, RN is Primary Nurse. sv 11:53 ED physician to see patient. sv 11:54 Patient has correct armband on for positive identification. Bed in low position. Call sv light in reach. Pulse ox on. NIBP on. 12:36 Assist provider with I \T\ D: of an abscess on buttocks Set up I\T\D tray. Performed by Gato Fry MD Dressing with 4X4s, tape Patient tolerated well. Patient maintains SpO2 saturation greater than 95% on room air. 13:12 Patient did not have IV access during this emergency room visit. sv Administered Medications: No medications were administered Outcome: 12:58 Discharge ordered by . kdr 13:13 Discharged to home via wheelchair. sv 13:13 Condition: stable 13:13 Discharge instructions given to patient, Instructed on discharge instructions, follow up and referral plans. medication usage, Demonstrated understanding of instructions, follow-up care, medications, Prescriptions given X 1. 13:13 Patient left the ED. sv Signatures: Sarah Gomez, MARYANNE MADDEN Gato Fry MD MD [facility] Faviola Landrum ds1 Tea Jo RN RN
--- NOTE | 2019-12-28 13:00 | EDPHYS ---
Physician Documentation [facility] Name: Deacon Howe Jr Age: 84 yrs Sex: Male : 1935 Arrival Date: 12/28/2019 Time: 11:04 Bed 19 Private MD: ED Physician Gato Rodriguez HPI: 12/27 15:04 This 84 yrs old Black Male presents to ER via Wheelchair with complaints of Abscess. kdr 15:04 The patient presents with an abscess of the left gluteus caroline, the patient presents kdr with a swollen area of the left gluteus caroline. Description: The affected area is small, localized, raised, swollen, warm. Onset: The symptoms/episode began/occurred gradually, 3 week(s) ago. Possible cause(s): unknown. Associated signs and symptoms: The patient has no apparent associated signs or symptoms. Modifying factors: the symptoms are alleviated by nothing, the symptoms are aggravated by movement, walking, pressure, sitting, squeezing the lesion and expressing the contents, touching. Severity of symptoms: At their worst the symptoms were mild, in the emergency department the symptoms are unchanged. The patient has not experienced similar symptoms in the past. The patient has not recently seen a physician. Historical: - Allergies: 11:26 NKDA; ss - PMHx: 11:26 Chronic pain; colon cancer; Hepatitis; HIV; Hypertension; ss - Immunization history:: Adult Immunizations up to date. - Social history:: Smoking status: Patient reports the use of cigarette tobacco products, smokes one-half pack cigarettes per day. ROS: 15:04 Constitutional: Negative for fever, chills, and weight loss. kdr 15:04 Skin: Positive for abscess, erythema, swelling, of the left gluteus caroline. Exam: 15:04 Constitutional: This is a well developed, well nourished patient who is awake, alert, kdr and in no acute distress. 15:04 Skin: abscess, that is small, of the left gluteus caroline. Vital Signs: 11:22 BP 110 / 51; Pulse 76; Resp 18; Temp 98.2(TE); Pulse Ox 99% on R/A; Weight 72.57 kg; ss Height 6 ft. 2 in. (187.96 cm); Pain 8/10; 11:22 Body Mass Index 20.54 (72.57 kg, 187.96 cm) Procedures: 15:04 I \T\ D: Incision and drainage was performed for an abscess of the left Prepped with kdr Betadine, Anesthetized with ml's 2% Lidocaine with epinephrine. 2 ml's 2% Lidocaine with epinephrine. Incised with Drained with aspiration #18 G needle minimal (<.1 ml) drained. Expressed another small amount. Drained small amount purulent fluid. bloody fluid. Dressing: None the patient tolerated the procedure well. MDM: 12:58 Patient medically screened. kdr 15:04 Data reviewed: vital signs, nurses notes. Counseling: I had a detailed discussion with [facility] the patient and/or guardian regarding: the historical points, exam findings, and any diagnostic results supporting the discharge/admit diagnosis, the need for outpatient follow up. Administered Medications: No medications were administered Disposition: 12/28/19 12:58 Discharged to Home. Impression: Cutaneous abscess of buttock. - Condition is Stable. - Discharge Instructions: Skin Abscess, [id number]. - Prescriptions for Keflex 500 mg Oral Capsule - take 1 capsule by ORAL route every 6 hours for 10 days; 40 capsule. - Medication Reconciliation Form, Thank You Letter, Antibiotic Education form. - Follow up: Private Physician; When: 2 - 3 days; Reason: If symptoms return, Further diagnostic work-up, Recheck today's complaints, Continuance of care, Re-evaluation by your physician. - Problem is new. - Symptoms have improved. Signatures: Sarah Gomez RN RN Gato Rodriguez MD MD [facility] Tea Jo RN RN Corrections: (The following items were deleted from the chart) 13:13 12:58 12/28/2019 12:58 Discharged to Home. Impression: Cutaneous abscess of buttock. sv Condition is Stable. Forms are Medication Reconciliation Form, Thank You Letter, Antibiotic Education, Prescription Opioid Use. Follow up: Private Physician; When: 2 - 3 days; Reason: If symptoms return, Further diagnostic work-up, Recheck today's complaints, Continuance of care, Re-evaluation by your physician. Problem is new. Symptoms have improved. kdr
[2019-12-28 13:20] VITALS: BP 110/51; TEMP 98.2; O2SAT 99
== END 2019-12-28 13:13 | disposition home or self-care (01) ==
LOC: ER 11:02
PROC: 0J990ZZ Drainage of Buttock Subcutaneous Tissue and Fascia, Open Approach (ICD-10-PCS; principal; 2019-12-28)
DX: L02.31 Cutaneous abscess of buttock (principal); I10 Essential (primary) hypertension; F17.290 Nicotine dependence, other tobacco product, uncomplicated; Z21 Asymptomatic human immunodeficiency virus [HIV] infection status
CPT/HCPCS: 99284

== ENCOUNTER 2020-01-05 07:28 | Emergency (ER) | payer OTHER ==
[2020-01-05 09:27] LABS: Potassium 3.8 mmol/L (3.5-5.1)
[2020-01-05 09:28] LABS: Basophils % 2.2 % (0-1.3); Hematocrit 41.1 % (39.6-49.0); Lymphocytes % 24.9 % (15.3-44.8); MPV 7.8 fL (7.6-11.3); RBC Red Blood Cell Count 5.16 M/uL (4.33-5.43)
[2020-01-05 09:55] LABS: Urine Blood NEGATIVE (NEG); Urine Glucose NEGATIVE (NEG); Urine Protein NEGATIVE (NEG)
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
--- NOTE | 2020-01-05 09:58 | ER ---
Nurse's Notes [facility] Name: Deacon Howe Jr Age: 84 yrs Sex: Male : 1935 Arrival Date: 01/05/2020 Time: 07:33 Bed 19 Private MD: Diagnosis: Weakness;Myalgia Presentation: 01/04 07:33 Chief complaint: EMS states: Pt c/o back pain and pain all over, also reports feeling ph weak and frequent urination, denies fever, N/V/D. Coronavirus screen: Client denies travel out of the [place] in the last 14 days. At this time, the client does not indicate any symptoms associated with coronavirus-19. Ebola Screen: No symptoms or risks identified at this time. Initial Sepsis Screen: Does the patient meet any 2 criteria? No. Patient's initial sepsis screen is negative. Does the patient have a suspected source of infection? No. Patient's initial sepsis screen is negative. Risk Assessment: Do you want to hurt yourself or someone else? Patient reports no desire to harm self or others. Onset of symptoms was January 05, 2020. 07:33 Method Of Arrival: EMS: [facility] ph 07:33 Acuity: ALIN 4 ph Historical: - Allergies: 07:37 NKDA; ph - PMHx: 07:37 Chronic pain; colon cancer; Hepatitis; HIV; Hypertension; ph - Immunization history:: Adult Immunizations unknown. Screenin:37 Abuse screen: Denies threats or abuse. Denies injuries from another. Nutritional ph screening: No deficits noted. Tuberculosis screening: No symptoms or risk factors identified. Fall Risk None identified. Assessment: 07:53 General: Appears in no apparent distress. comfortable, slender, unkempt, Behavior is ph calm, cooperative, appropriate for age, Denies fever. Pain: Complains of pain in low back and "all over". Neuro: Level of Consciousness is awake, alert, obeys commands, Oriented to person, place, time, situation, Reports weakness in "all over" Denies dizziness. Cardiovascular: Denies chest pain, nausea, shortness of breath, vomiting, Capillary refill < 3 seconds in bilateral fingers Patient's skin is warm and dry. Respiratory: Airway is patent Respiratory effort is even, unlabored, Respiratory pattern is regular, symmetrical. GI: No signs and/or symptoms were reported involving the gastrointestinal system. : Reports urinary frequency, Denies burning with urination. Derm: Skin is intact, is fragile, is thin, Skin is pink, warm \\T\\ dry. Musculoskeletal: Circulation, motion, and sensation intact. Range of motion: intact in all extremities, Swelling absent. 09:00 Reassessment: Patient appears in no apparent distress at this time. Patient and/or ph family updated on plan of care and expected duration. Pain level reassessed. Patient is alert, oriented x 3, equal unlabored respirations, skin warm/dry/pink. Vital Signs: 07:33 BP 124 / 81; Pulse 63; Resp 18; Pulse Ox 100% on R/A; ph 07:53 Temp 97.2; ph 08:48 BP 126 / 82; Pulse 68; Resp 18; Temp 98.4(O); Pulse Ox 99% on R/A; mh5 10:00 BP 127 / 80; Pulse 67; Resp 18; Temp 97.8; Pulse Ox 99% on R/A; ph ED Course: 07:33 Patient arrived in ED. ph 07:36 Triage completed. ph 07:37 Arm band placed on Patient placed in an exam room, on a stretcher. ph 07:38 Patient has correct armband on for positive identification. Bed in low position. Call ph light in reach. Side rails up X 1. Pulse ox on. NIBP on. Door closed. Noise minimized. Warm blanket given. Pillow given. 07:39 Gato Rodriguez MD is Attending Physician. kdr 07:53 Callie Hernandez, RN is Primary Nurse. ph 09:07 Initial lab(s) drawn, by me, sent to lab. Accessed Blood obtained via straight stick ph using 23 G in R ram, bleeding controlled. 10:16 No provider procedures requiring assistance completed. Patient did not have IV access ph during this emergency room visit. Administered Medications: No medications were administered Outcome: 09:57 Discharge ordered by . kdr 10:16 Discharged to home via wheelchair, with friend. ph 10:16 Condition: good 10:16 Discharge instructions given to patient, Instructed on discharge instructions, follow up and referral plans. Demonstrated understanding of instructions, follow-up care. 10:20 Patient left the ED. ph Signatures: Rittger, MD MD sam Hoskins Patricia, RN RN ph Jaleel, Rebecca [facility]
[2020-01-05 10:22] LABS: Barbiturates NEGATIVE (NEGATIVE); Benzodiazepines NEGATIVE (NEGATIVE); Cocaine POSITIVE (NEGATIVE); METHAMPHETAM NEGATIVE (NEGATIVE); Methadone NEGATIVE (NEGATIVE); Opiates NEGATIVE (NEGATIVE); Phencyclidine NEGATIVE (NEGATIVE); THC Cannibis NEGATIVE (NEGATIVE)
[2020-01-05 10:28] VITALS: BP 126/82; TEMP 98.4; O2SAT 99
== END 2020-01-05 10:20 | disposition home or self-care (01) ==
LOC: ER 07:28
DX: M79.10 Myalgia, unspecified site (principal); M54.9 Dorsalgia, unspecified; V18.0XXA Pedal cycle driver injured in noncollision transport accident in nontraffic accident, initial encounter; I10 Essential (primary) hypertension; Z21 Asymptomatic human immunodeficiency virus [HIV] infection status; Z85.038 Personal history of other malignant neoplasm of large intestine
CPT/HCPCS: 36415; 80048; 80307; 81003; 85025; 99284

== ENCOUNTER 2020-01-18 14:05 | Emergency (ER) | payer OTHER ==
--- NOTE | 2020-01-18 14:30 | ER ---
Nurse's Notes [facility] Name: Deacon Howe Jr Age: 84 yrs Sex: Male : 1935 Arrival Date: 01/18/2020 Time: 14:07 Bed 16 Private MD: Diagnosis: Malaise and fatigue;Fall on same level, unspecified Presentation: 01/17 14:09 Chief complaint: Patient states: "I fell and now my left and right hip hurts. actually jd3 I hurt all over this old body I have.". Coronavirus screen: At this time, the client does not indicate any symptoms associated with coronavirus-19. Ebola Screen: Patient negative for fever greater than or equal to 101.5 degrees Fahrenheit, and additional compatible Ebola Virus Disease symptoms. Initial Sepsis Screen: Does the patient meet any 2 criteria? No. Patient's initial sepsis screen is negative. Does the patient have a suspected source of infection? No. Patient's initial sepsis screen is negative. Risk Assessment: Do you want to hurt yourself or someone else? Patient reports no desire to harm self or others. Onset of symptoms was January 17, 2020. 14:09 Method Of Arrival: Wheelchair jd3 14:09 Acuity: ALIN 3 jd3 Historical: - Allergies: 14:10 NKDA; jd3 - PMHx: 14:10 Chronic pain; colon cancer; Hepatitis; HIV; Hypertension; jd3 - Immunization history:: Adult Immunizations unknown. - Social history:: Smoking status: Patient reports the use of cigarette tobacco products, unknown amount. Screenin:30 Abuse screen: Denies threats or abuse. Denies injuries from another. Nutritional ca1 screening: No deficits noted. Tuberculosis screening: No symptoms or risk factors identified. Fall Risk IV access (20 points). Total Pedroza Fall Scale indicates No Risk (0-24 pts). Assessment: 14:30 General: Appears in no apparent distress. comfortable, Behavior is calm, cooperative, ca1 appropriate for age. Pain: Complains of pain in all over. Neuro: Level of Consciousness is awake, alert, obeys commands, Oriented to person, place, time, situation. Cardiovascular: Heart tones S1 S2 present Capillary refill < 3 seconds Patient's skin is warm and dry. Respiratory: Airway is patent Respiratory effort is even, unlabored, Respiratory pattern is regular, symmetrical, Breath sounds are clear bilaterally. GI: Abdomen is flat, non-distended, Bowel sounds present X 4 quads. Abd is soft and non tender X 4 quads. : No signs and/or symptoms were reported regarding the genitourinary system. EENT: No signs and/or symptoms were reported regarding the EENT system. Derm: Skin is intact, is healthy with good turgor, Skin is pink, warm \\T\\ dry. Musculoskeletal: Circulation, motion, and sensation intact. Capillary refill < 3 seconds. 15:17 Reassessment: Patient appears in no apparent distress at this time. Patient is alert, ca1 oriented x 3, equal unlabored respirations, skin warm/dry/pink. Vital Signs: 14:11 BP 108 / 70; Pulse 79; Resp 16 S; Temp 98.6(TE); Pulse Ox 100% on R/A; Weight 72.57 kg jd3 (R); Height 6 ft. 1 in. (185.42 cm) (R); Pain 8/10; 15:17 BP 113 / 76; Pulse 81; Resp 16 S; Pulse Ox 100% on R/A; ca1 14:11 Body Mass Index 21.11 (72.57 kg, 185.42 cm) jd3 ED Course: 14:07 Patient arrived in ED. ag5 14:10 Triage completed. jd3 14:12 Arm band placed on. jd3 14:28 Tessa Jose, RN is Primary Nurse. ca1 14:30 Patient has correct armband on for positive identification. Bed in low position. Call ca1 light in reach. Side rails up X2. Pulse ox on. NIBP on. Warm blanket given. 14:31 Rosetta Ambrocio FNP-C is PHCP. snw 14:31 Gato Rodriguez MD is Attending Physician. snw 15:17 No provider procedures requiring assistance completed. Patient did not have IV access ca1 during this emergency room visit. Administered Medications: 15:00 Drug: [place] 10 mg-325 mg 1 tabs {Note: rass 0.} Route: PO; ca1 15:16 Follow up: Response: No adverse reaction; Pain is decreased; RASS: Alert and Calm (0) ca1 Outcome: 14:30 Discharge ordered by . snw 15:18 Discharged to home via wheelchair. ca1 15:18 Condition: stable 15:18 Discharge instructions given to patient, Instructed on discharge instructions, follow up and referral plans. Demonstrated understanding of instructions, follow-up care. 15:18 Patient left the ED. ca1 Signatures: Rosetta Ambrocio, INSTRUCTIONAL SUPPORT TECHNICIAN-C INSTRUCTIONAL SUPPORT TECHNICIAN-Csnw Tigre Enciso RN RN jd3 Tessa Jose RN RN ca1 Danielle Saavedra ag5
--- NOTE | 2020-01-18 14:30 | EDPHYS ---
Physician Documentation [facility] Name: Deacon Howe Jr Age: 84 yrs Sex: Male : 1935 Arrival Date: 01/18/2020 Time: 14:07 Bed 16 Private MD: ED Physician Gato Rodrigeuz HPI: 01/17 14:34 This 84 yrs old Black Male presents to ER via Wheelchair with complaints of Pain All snw Over. 14:34 Details of fall: The patient fell from an upright position. Onset: The symptoms/episode snw began/occurred acutely. Associated injuries: The patient sustained no obvious injury. Severity of symptoms: At their worst the symptoms were moderate. The patient has experienced similar episodes in the past. It is unknown whether or not the patient has recently seen a physician. pt got off the bus, ambulatory all over ED lobby. C/o pain all over. . Historical: - Allergies: 14:10 NKDA; jd3 - PMHx: 14:10 Chronic pain; colon cancer; Hepatitis; HIV; Hypertension; jd3 - Immunization history:: Adult Immunizations unknown. - Social history:: Smoking status: Patient reports the use of cigarette tobacco products, unknown amount. ROS: 14:32 Constitutional: Negative for fever, chills, and weight loss, Eyes: Negative for injury, snw pain, redness, and discharge, ENT: Negative for injury, pain, and discharge, Neck: Negative for injury, pain, and swelling, Cardiovascular: Negative for chest pain, palpitations, and edema, Respiratory: Negative for shortness of breath, cough, wheezing, and pleuritic chest pain, Abdomen/GI: Negative for abdominal pain, nausea, vomiting, diarrhea, and constipation, Back: Negative for injury and pain, : Negative for injury, bleeding, discharge, and swelling, Skin: Negative for injury, rash, and discoloration, Neuro: Negative for headache, weakness, numbness, tingling, and seizure, Psych: Negative for depression, anxiety, suicide ideation, homicidal ideation, and hallucinations. 14:32 MS/extremity: Positive for pain, "all over". Exam: 14:32 Constitutional: This is a well developed, well nourished patient who is awake, alert, snw and in no acute distress. Head/Face: Normocephalic, atraumatic. Eyes: Pupils equal round and reactive to light, extra-ocular motions intact. Lids and lashes normal. Conjunctiva and sclera are non-icteric and not injected. Cornea within normal limits. Periorbital areas with no swelling, redness, or edema. ENT: Nares patent. No nasal discharge, no septal abnormalities noted. Tympanic membranes are normal and external auditory canals are clear. Oropharynx with no redness, swelling, or masses, exudates, or evidence of obstruction, uvula midline. Mucous membranes moist. Neck: Trachea midline, no thyromegaly or masses palpated, and no cervical lymphadenopathy. Supple, full range of motion without nuchal rigidity, or vertebral point tenderness. No Meningismus. Chest/axilla: Normal chest wall appearance and motion. Nontender with no deformity. No lesions are appreciated. Cardiovascular: Regular rate and rhythm with a normal S1 and S2. No gallops, murmurs, or rubs. Normal PMI, no JVD. No pulse deficits. Respiratory: Lungs have equal breath sounds bilaterally, clear to auscultation and percussion. No rales, rhonchi or wheezes noted. No increased work of breathing, no retractions or nasal flaring. Abdomen/GI: Soft, non-tender, with normal bowel sounds. No distension or tympany. No guarding or rebound. No evidence of tenderness throughout. Back: No spinal tenderness. No costovertebral tenderness. Full range of motion. Skin: Warm, dry with normal turgor. Normal color with no rashes, no lesions, and no evidence of cellulitis. MS/ Extremity: Pulses equal, no cyanosis. Neurovascular intact. Full, normal range of motion. Neuro: Awake and alert, GCS 15, oriented to person, place, time, and situation. Cranial nerves II-XII grossly intact. Motor strength 5/5 in all extremities. Sensory grossly intact. Cerebellar exam normal. Normal gait. Psych: Awake, alert, with orientation to person, place and time. Behavior, mood, and affect are within normal limits. Vital Signs: 14:11 BP 108 / 70; Pulse 79; Resp 16 S; Temp 98.6(TE); Pulse Ox 100% on R/A; Weight 72.57 kg jd3 (R); Height 6 ft. 1 in. (185.42 cm) (R); Pain 8/10; 15:17 BP 113 / 76; Pulse 81; Resp 16 S; Pulse Ox 100% on R/A; ca1 14:11 Body Mass Index 21.11 (72.57 kg, 185.42 cm) jd3 MDM: 14:30 Patient medically screened. snw 14:33 Data reviewed: vital signs, nurses notes. Data interpreted: Pulse oximetry: on room air snw is 100 %. Interpretation: normal. Counseling: I had a detailed discussion with the patient and/or guardian regarding: the historical points, exam findings, and any diagnostic results supporting the discharge/admit diagnosis, the need for outpatient follow up, to return to the emergency department if symptoms worsen or persist or if there are any questions or concerns that arise at home, smoking cessation. Special discussion: Based on the history and exam findings, there is no indication for further emergent testing or inpatient evaluation. I discussed with the patient/guardian the need to see the primary care provider for further evaluation of the symptoms. I discussed with the patient/guardian the need to see the psychiatrist for further evaluation of the symptoms. Administered Medications: 15:00 Drug: [place] 10 mg-325 mg 1 tabs {Note: rass 0.} Route: PO; ca1 15:16 Follow up: Response: No adverse reaction; Pain is decreased; RASS: Alert and Calm (0) ca1 Disposition: 18:26 Co-signature as Attending Physician, Gato Rodriguez MD I agree with the assessment and kdr plan of care. Disposition: 01/18/20 14:30 Discharged to Home. Impression: Malaise and fatigue, Fall on same level, unspecified. - Condition is Stable. - Discharge Instructions: Contusion, Fall Prevention in the Home, Fatigue, Rehydration, Elderly. - Medication Reconciliation Form, Thank You Letter, Antibiotic Education, Prescription Opioid Use form. - Follow up: Private Physician; When: 2 - 3 days; Reason: Recheck today's complaints, Continuance of care, Re-evaluation by your physician. Signatures: Gato Rodriguez MD MD kdr Waters, Shelly, CUT IN WORKER-C CUT IN WORKER-Csnw Tigre Enciso RN RN jd3 Tessa Jose RN RN ca1 Corrections: (The following items were deleted from the chart) 15:18 14:30 01/18/2020 14:30 Discharged to Home. Impression: Malaise and fatigue; Fall on ca1 same level, unspecified. Condition is Stable. Forms are Medication Reconciliation Form, Thank You Letter, Antibiotic Education, Prescription Opioid Use. Follow up: Private Physician; When: 2 - 3 days; Reason: Recheck today's complaints, Continuance of care, Re-evaluation by your physician. snw
[2020-01-18] MEDS ORDERED: HYDROCODONE/APAP 10/325 TAB ONE (15:09)
[2020-01-18 15:54] VITALS: TEMP 98.6; O2SAT 100
[2020-01-18 15:56] VITALS: BP 113/76
== END 2020-01-18 15:18 | disposition home or self-care (01) ==
LOC: ER 14:05
DX: R53.81 Other malaise (principal); R53.83 Other fatigue; W18.30XA Fall on same level, unspecified, initial encounter; Y93.9 Activity, unspecified; Y92.9 Unspecified place or not applicable; I10 Essential (primary) hypertension; F17.210 Nicotine dependence, cigarettes, uncomplicated; Z21 Asymptomatic human immunodeficiency virus [HIV] infection status; Z85.038 Personal history of other malignant neoplasm of large intestine
CPT/HCPCS: 99283

== ENCOUNTER 2020-01-22 15:21 | Emergency (ER) | payer OTHER ==
[2020-01-22] MEDS ORDERED: NA CHLORIDE 0.9% 250 ML ONE (16:22)
[2020-01-22 16:26] LABS: Absolute Lymphocytes (CBC) 1.3 K/uL (0.7-4.9); Basophils % 1.2 % (0-1.3); Hematocrit 40.7 % (39.6-49.0); Lymphocytes % 27.1 % (15.3-44.8); MPV 7.5 fL (7.6-11.3); RBC Red Blood Cell Count 5.17 M/uL (4.33-5.43)
[2020-01-22] MEDS ORDERED: HYDROCODONE/APAP 7.5/325 MG TAB ONE (16:34)
[2020-01-22 16:41] LABS: Potassium 4.4 mmol/L (3.5-5.1)
--- NOTE | 2020-01-22 17:07 | RAD REPORT ---
EXAM DESCRIPTION: RAD - Hip Right 2 View - 01/22/2020 4:13 pm CLINICAL HISTORY: PAIN COMPARISON: Hip Right 2 View dated 01/11/2020; Abdomen Pelvis W Contrast dated 10/08/2019 FINDINGS: AP and frog-leg views of the right hip were obtained. No acute fracture of the right hemipelvis seen. Large areas of lucency surrounding the right acetabul um have not changed. Old fracture change and remottling at the superior pubic ramus junction with the pubic symphysis noted. 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 The resorption changes along the medial superior margin of the right femur have not changed. No new or progressive radiographic loosening fin dings. Prominent lower lumbar degenerative change present. 

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
[2020-01-22] MEDS ORDERED: BUPIVACAINE 0.5% PF 10 ML VIAL ONE (17:25)
[2020-01-22] MEDS ORDERED: LIDOCAINE 1% W/EPI 1:100,000 MDV 20 ML VIAL ONE (17:25)
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
[2020-01-22 19:33] LABS: Urine Blood 1+ (NEG); Urine Glucose NEGATIVE (NEG); Urine Protein NEGATIVE (NEG); Urine Specific Gravity >1.030 (1.005-1.030); Urine pH 6.5 (5.0-7.0)
[2020-01-23 00:38] VITALS: TEMP 97.9
[2020-01-23 00:46] VITALS: BP 145/82; O2SAT 99
== END 2020-01-22 18:17 | disposition home or self-care (01) ==
LOC: ER 15:21
PROC: 0J990ZZ Drainage of Buttock Subcutaneous Tissue and Fascia, Open Approach (ICD-10-PCS; principal; 2020-01-22)
DX: L02.31 Cutaneous abscess of buttock (principal); M79.10 Myalgia, unspecified site; V18.0XXA Pedal cycle driver injured in noncollision transport accident in nontraffic accident, initial encounter; I10 Essential (primary) hypertension; F17.210 Nicotine dependence, cigarettes, uncomplicated; Z21 Asymptomatic human immunodeficiency virus [HIV] infection status; Z85.038 Personal history of other malignant neoplasm of large intestine
CPT/HCPCS: 96365; 85025; 80048; 36415; 82550; 81003; 72170; 73502; 99284; 10060; J7050

== ENCOUNTER 2020-01-24 06:54 | Emergency (ER) | payer OTHER ==
--- NOTE | 2020-01-24 07:51 | ER ---
Nurse's Notes [facility] Name: Deacon Howe Jr Age: 84 yrs Sex: Male : 1935 Arrival Date: 01/24/2020 Time: 07:02 Bed 5 Private MD: Diagnosis: Cutaneous abscess of buttock-sp I/D Presentation: 01/23 07:14 Chief complaint: Sutures on buttocks, here for removal. Coronavirus screen: At this hb time, the client does not indicate any symptoms associated with coronavirus-19. Ebola Screen: No symptoms or risks identified at this time. Initial Sepsis Screen: Does the patient meet any 2 criteria? No. Patient's initial sepsis screen is negative. Does the patient have a suspected source of infection? No. Patient's initial sepsis screen is negative. Risk Assessment: Do you want to hurt yourself or someone else? Patient reports no desire to harm self or others. Onset of symptoms was January 24, 2020. 07:14 Method Of Arrival: Ambulatory hb 07:14 Acuity: ALIN 4 hb Historical: - Allergies: 07:16 NKDA; hb - PMHx: 07:16 Chronic pain; colon cancer; Hepatitis; HIV; Hypertension; hb - Immunization history:: Adult Immunizations up to date. - Social history:: Smoking status: Patient denies any tobacco usage or history of. - Family history:: not pertinent. Screenin:34 Abuse screen: Denies threats or abuse. Denies injuries from another. Nutritional zb screening: No deficits noted. Tuberculosis screening: No symptoms or risk factors identified. Fall Risk Fall in past 12 months (25 points). No secondary diagnosis (0 pts). No IV (0 pts). Ambulatory Aid- None/Bed Rest/Nurse Assist (0 pts). Gait- Normal/Bed Rest/Wheelchair (0 pts) Mental Status- Oriented to own ability (0 pts). Total Pedroza Fall Scale indicates Low Risk Score (25-44 pts). Fall prevention measures have been instituted. Side Rails Up X 2 Placed close to Nursing Station Frequent Obs/Assesments occuring As available Patient and Family Educated on Fall Prevention Program and strategies. Assessment: 07:25 General: Appears in no apparent distress. uncomfortable, slender, Behavior is calm, zb cooperative, appropriate for age. Pain: Complains of pain in right gluteus caroline Pain does not radiate. Pain currently is 10 out of 10 on a pain scale. Aggravated by repositioning. Neuro: Level of Consciousness is awake, alert, obeys commands, Oriented to person, place, time, situation. Cardiovascular: Capillary refill < 3 seconds in bilateral fingers. Respiratory: Airway is patent Trachea midline Respiratory effort is even, unlabored. GI: No signs and/or symptoms were reported involving the gastrointestinal system. : No signs and/or symptoms were reported regarding the genitourinary system. EENT: No signs and/or symptoms were reported regarding the EENT system. Derm: Abscess located on right gluteus caroline is quarter sized, was previously lanced and packed with gauzed. dried drainage on packing. Musculoskeletal: Circulation, motion, and sensation intact. 08:30 Reassessment: Patient appears in no apparent distress at this time. Patient and/or zb family updated on plan of care and expected duration. Pain level reassessed. Patient is alert, oriented x 3, equal unlabored respirations, skin warm/dry/pink. d/c pending dressing change. dressing applied to wound. pt stable and comfortable wheeled out to lobby waiting of bus pass. Vital Signs: 07:14 BP 147 / 88; Pulse 61; Resp 16; Temp 97.7; Pulse Ox 100% on R/A; hb 08:30 BP 140 / 90; Pulse 64; Resp 18; Pulse Ox 100% on R/A; zb ED Course: 07:02 Patient arrived in ED. ag3 07:11 Vipul Castillo MD is Attending Physician. martin 07:13 Estrella Orozco RN is Primary Nurse. zb 07:15 Triage completed. hb 07:16 Arm band placed on. hb 07:35 Patient has correct armband on for positive identification. Bed in low position. Call zb light in reach. Side rails up X 1. Door closed. Noise minimized. Warm blanket given. PO fluids given. Verbal reassurance given. Head of bed elevated. 08:30 No provider procedures requiring assistance completed. zb 08:30 Patient did not have IV access during this emergency room visit. zb Administered Medications: 08:28 Drug: Bactrim (160 mg-800 mg (DS) 1 tablet Route: PO; zb 08:32 Follow up: Response: No adverse reaction zb 08:28 Drug: Doxycycline 100 mg Route: PO; zb 08:32 Follow up: Response: No adverse reaction zb 08:28 Drug: Bactroban Ointment 2 % 1 application Route: Topical; Site: wound; zb 08:30 Follow up: Response: No adverse reaction zb Outcome: 07:50 Discharge ordered by MD. salazar 08:35 Patient left the ED. ph 08:35 Discharged to home via wheelchair. zb 08:35 Condition: good 08:35 Discharge instructions given to patient, Instructed on discharge instructions, follow up and referral plans. medication usage, Demonstrated understanding of instructions, follow-up care, medications, Prescriptions given X 3. Signatures: Vipul Castillo MD MD cha Hall, Patricia, RN RN Leesa Tan RN RN hb Gomez, Alice ag3 Brown, Zipporah, RN RN zb
--- NOTE | 2020-01-24 07:51 | EDPHYS ---
Physician Documentation [facility] Name: Deacon Howe Jr Age: 84 yrs Sex: Male : 1935 Arrival Date: 01/24/2020 Time: 07:02 Bed 5 Private MD: Vipul Diop HPI: 01/23 07:45 This 84 yrs old Black Male presents to ER via Ambulatory with complaints of Suture martin Removal. 07:45 Previous treatment: incise and drain. The patient has experienced similar episodes in [facility] the past, several times. Historical: - Allergies: 07:16 NKDA; hb - PMHx: 07:16 Chronic pain; colon cancer; Hepatitis; HIV; Hypertension; hb - Immunization history:: Adult Immunizations up to date. - Social history:: Smoking status: Patient denies any tobacco usage or history of. - Family history:: not pertinent. ROS: 07:45 Constitutional: Negative for fever, chills, and weight loss, Eyes: Negative for injury, martin pain, redness, and discharge, ENT: Negative for injury, pain, and discharge, Neck: Negative for injury, pain, and swelling, Cardiovascular: Negative for chest pain, palpitations, and edema, Respiratory: Negative for shortness of breath, cough, wheezing, and pleuritic chest pain, Abdomen/GI: Negative for abdominal pain, nausea, vomiting, diarrhea, and constipation, Back: Negative for injury and pain, : Negative for injury, bleeding, discharge, and swelling, MS/Extremity: Negative for injury and deformity, Neuro: Negative for headache, weakness, numbness, tingling, and seizure, Psych: Negative for depression, anxiety, suicide ideation, homicidal ideation, and hallucinations, Allergy/Immunology: Negative for hives, rash, and allergies, Endocrine: Negative for neck swelling, polydipsia, polyuria, polyphagia, and marked weight changes, Hematologic/Lymphatic: Negative for swollen nodes, abnormal bleeding, and unusual bruising. 07:45 Skin: Positive for abscess, of the right gluteus caroline, healing right buttock wound, gauze spontaneously remove. Exam: 07:45 Constitutional: This is a well developed, well nourished patient who is awake, alert, martin and in no acute distress. Head/Face: Normocephalic, atraumatic. Eyes: Pupils equal round and reactive to light, extra-ocular motions intact. Lids and lashes normal. Conjunctiva and sclera are non-icteric and not injected. Cornea within normal limits. Periorbital areas with no swelling, redness, or edema. ENT: Nares patent. No nasal discharge, no septal abnormalities noted. Tympanic membranes are normal and external auditory canals are clear. Oropharynx with no redness, swelling, or masses, exudates, or evidence of obstruction, uvula midline. Mucous membranes moist. Neck: Trachea midline, no thyromegaly or masses palpated, and no cervical lymphadenopathy. Supple, full range of motion without nuchal rigidity, or vertebral point tenderness. No Meningismus. Chest/axilla: Normal chest wall appearance and motion. Nontender with no deformity. No lesions are appreciated. Cardiovascular: Regular rate and rhythm with a normal S1 and S2. No gallops, murmurs, or rubs. Normal PMI, no JVD. No pulse deficits. Respiratory: Lungs have equal breath sounds bilaterally, clear to auscultation and percussion. No rales, rhonchi or wheezes noted. No increased work of breathing, no retractions or nasal flaring. Abdomen/GI: Soft, non-tender, with normal bowel sounds. No distension or tympany. No guarding or rebound. No evidence of tenderness throughout. Back: No spinal tenderness. No costovertebral tenderness. Full range of motion. Male : Normal genitalia with no discharge or lesions. MS/ Extremity: Pulses equal, no cyanosis. Neurovascular intact. Full, normal range of motion. Neuro: Awake and alert, GCS 15, oriented to person, place, time, and situation. Cranial nerves II-XII grossly intact. Motor strength 5/5 in all extremities. Sensory grossly intact. Cerebellar exam normal. Normal gait. Psych: Awake, alert, with orientation to person, place and time. Behavior, mood, and affect are within normal limits. 07:45 Skin: healing incision and drainage. Vital Signs: 07:14 BP 147 / 88; Pulse 61; Resp 16; Temp 97.7; Pulse Ox 100% on R/A; hb 08:30 BP 140 / 90; Pulse 64; Resp 18; Pulse Ox 100% on R/A; zb MDM: 07:11 Patient medically [address] [facility] 07:45 Data reviewed: vital signs, nurses notes. 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 Test interpretation: by ED physician or midlevel provider:. Counseling: I had a detailed discussion with the patient and/or guardian regarding: the historical points, exam findings, and any diagnostic results supporting the discharge/admit diagnosis, the need for outpatient follow up, for definitive care, a general surgeon. 01/23 07:45 Order name: Wound Care; Complete Time: 08:[address] [facility] Administered Medications: 08:28 Drug: Bactrim (160 mg-800 mg (DS) 1 tablet Route: PO; zb 08:32 Follow up: Response: No adverse reaction zb 08:28 Drug: Doxycycline 100 mg Route: PO; zb 08:32 Follow up: Response: No adverse reaction zb 08:28 Drug: Bactroban Ointment 2 % 1 application Route: Topical; Site: wound; zb 08:30 Follow up: Response: No adverse reaction zb Disposition: 01/24/20 07:50 Discharged to Home. Impression: Cutaneous abscess of buttock - sp I/D. - Condition is Stable. - Discharge Instructions: Skin Abscess, Incision and Drainage, How to Take a Sitz Bath, Skin Abscess, [id number]. - Prescriptions for Bactroban 2 % Topical Ointment - Apply to affected area 1 application by TOPICAL route every 12 hours; 30 gram. Doxycycline Hyclate 100 mg Oral Tablet - take 1 tablet by ORAL route every 12 hours; 20 tablet. Bactrim DS 800- 160 mg Oral Tablet - take 1 tablet by ORAL route every 12 hours for 10 days; 20 tablet. - Medication Reconciliation Form, Thank You Letter, Antibiotic Education, Prescription Opioid Use form. - Follow up: Private Physician; When: 2 - 3 days; Reason: Recheck today's complaints, Continuance of care, Re-evaluation by your physician. - Problem is new. - Symptoms have improved. Signatures: Vipul Castillo MD MD cha Hall, Patricia, RN RN Leesa Tan, MARYANNE RN Estrella Escobar RN RN zb Corrections: (The following items were deleted from the chart) 08:35 07:50 01/24/2020 07:50 Discharged to Home. Impression: Cutaneous abscess of buttock - ph sp I/D. Condition is Stable. Forms are Medication Reconciliation Form, Thank You Letter, Antibiotic Education, Prescription Opioid Use. Follow up: Private Physician; When: 2 - 3 days; Reason: Recheck today's complaints, Continuance of care, Re-evaluation by your physician. Problem is new. Symptoms have improved. martin
[2020-01-24] MEDS ORDERED: SMZ./TMP. 800/160 MG TABLET ONE (08:21)
[2020-01-24] MEDS ORDERED: DOXYCYCLINE 100 MG CAP PO ONE (08:22)
[2020-01-24] MEDS ORDERED: MUPIROCIN 2% OINT 22GM TUBE TOP ONE (08:22)
[2020-01-24 11:50] VITALS: BP 147/88; TEMP 97.7; O2SAT 100
== END 2020-01-24 08:35 | disposition home or self-care (01) ==
LOC: ER 06:54
DX: L02.31 Cutaneous abscess of buttock (principal); I10 Essential (primary) hypertension; Z21 Asymptomatic human immunodeficiency virus [HIV] infection status
CPT/HCPCS: 99283

== ENCOUNTER 2020-02-01 15:27 | Emergency (ER) | payer OTHER ==
--- NOTE | 2020-02-01 16:59 | RAD REPORT ---
EXAM DESCRIPTION: RAD - Chest Single View - 02/01/2020 4:53 pm CLINICAL HISTORY: COUGH Chest pain. COMPARISON: Chest Single View dated 12/14/2019; Chest Single View dated 11/06/2019; Chest Single View dated 10/08/2019; Chest Single View dated 09/14/2019 FINDINGS: Portable technique limits examination quality. Chronic pleural and parenchymal calcification in the inferior right hemithorax is unchanged. The lung s are grossly clear. The heart is normal in size. Tortuous thoracic aorta is noted. IMPRESSION: No acute intrathoracic process suspected.
[2020-02-01 17:14] LABS: Absolute Lymphocytes (CBC) 1.2 K/uL (0.7-4.9); Basophils % 1.1 % (0-1.3); Hematocrit 40.6 % (39.6-49.0); Lymphocytes % 23.9 % (15.3-44.8); MPV 7.5 fL (7.6-11.3); RBC Red Blood Cell Count 5.15 M/uL (4.33-5.43)
[2020-02-01 17:18] LABS: Protime INR 0.99
[2020-02-01] MEDS ORDERED: NA CHLORIDE 0.9% 2,000 ML ONE (17:19)
[2020-02-01 17:32] LABS: ALT/SGPT 22 U/L (12-78); AST/SGOT 22 U/L (15-37); Albumin 3.2 g/dL (3.4-5.0); Alkaline Phosphatase 82 U/L (45-117); BUN Blood Urea Nitrogen 22 mg/dL (7-18); Bicarbonate 25 mmol/L (21-32); Bilirubin Direct 0.1 mg/dL (0-0.2); Bilirubin Total 0.5 mg/dL (0.2-1.0); CKMB Creatine Kinase MB 4.2 ng/mL (0.3-3.6); Creatine Phosphokinase 121 U/L (39-308); Glucose Level 73 mg/dL (74-106); Lipase 128 U/L (73-393); Magnesium 2.2 mg/dL (1.8-2.4); NT PRO-BNP 507 pg/mL (<450); Potassium 4.4 mmol/L (3.5-5.1); Protein, Total 6.8 g/dL (6.4-8.2); Sodium Level 138 mmol/L (136-145); Troponin (Emerg Dept Use Only) < 0.02 ng/mL (0.0-0.045)
[2020-02-01 17:32] LABS: Barbiturates NEGATIVE (NEGATIVE); Benzodiazepines NEGATIVE (NEGATIVE); Cocaine NEGATIVE (NEGATIVE); METHAMPHETAM NEGATIVE (NEGATIVE); Methadone NEGATIVE (NEGATIVE); Opiates NEGATIVE (NEGATIVE); Phencyclidine NEGATIVE (NEGATIVE); THC Cannibis NEGATIVE (NEGATIVE)
[2020-02-01 17:37] LABS: Urine Blood NEGATIVE (NEG); Urine Glucose NEGATIVE (NEG); Urine Protein NEGATIVE (NEG); Urine Specific Gravity 1.015 (1.005-1.030)
[2020-02-01] MEDS ORDERED: MORPHINE 4 MG/ML SYR ONE (17:48)
[2020-02-01] MEDS ORDERED: ONDANSETRON 4 MG/2 ML VIAL ONE (17:48)
[2020-02-01] MEDS ORDERED: ACETYLCYST 6,000 MG/30 ML VIAL ONE (18:44)
--- NOTE | 2020-02-01 19:38 | ER ---
Nurse's Notes [facility] Name: Deacon Howe Jr Age: 84 yrs Sex: Male : 1935 Arrival Date: 02/01/2020 Time: 15:28 Bed 8 Private MD: Diagnosis: Malaise and fatigue;Volume depletion-mild Presentation: 01/31 15:37 Chief complaint: Patient states: My body hurts all over and it feels like im going to iw dye. Coronavirus screen: Client denies travel out of the [place] in the last 14 days. Ebola Screen: No symptoms or risks identified at this time. 15:37 Method Of Arrival: EMS: [facility] iw 15:49 Initial Sepsis Screen: Does the patient meet any 2 criteria? No. Patient's initial iw sepsis screen is negative. Does the patient have a suspected source of infection? No. Patient's initial sepsis screen is negative. Risk Assessment: Do you want to hurt yourself or someone else? Patient reports no desire to harm self or others. Onset of symptoms was February 01, 2020. 15:49 Acuity: ALIN 3 iw Historical: - Allergies: 16:30 NKDA; aa5 - PMHx: 16:30 Chronic pain; colon cancer; Hepatitis; HIV; Hypertension; aa5 - Immunization history:: Adult Immunizations unknown. - Social history:: Smoking status: Patient reports the use of cigarette tobacco products, cigars. - Family history:: not pertinent. Screenin:00 Abuse screen: Denies threats or abuse. Nutritional screening: Pt is homeless, pt aa5 reports last meal was today around lunch time. . Tuberculosis screening: No symptoms or risk factors identified. Fall Risk Fall in past 12 months (25 points). IV access (20 points). Ambulatory Aid- Crutches/Cane/Walker (15 pts). Total Pedroza Fall Scale indicates High Risk Score (45 or more points). Fall prevention measures have been instituted. Side Rails Up X 2 Placed Close to Nursing Station. Assessment: 16:30 General: Appears comfortable, Behavior is calm, cooperative, Reports he is homeless at aa5 this time, pt states "I really need to stay in the hospital tonight because I have nowhere to go". Pain: Complains of pain in whole body Pain currently is 10 out of 10 on a pain scale. Quality of pain is described as aching, Pain began is chronic as reported by patient Is continuous. Neuro: Level of Consciousness is awake, alert, obeys commands, Oriented to person, place, time, situation. Cardiovascular: Heart tones S1 S2 present Rhythm is sinus rhythm. Respiratory: Airway is patent Respiratory effort is even, unlabored, Respiratory pattern is regular, symmetrical. GI: Abdomen is flat, non-distended, Bowel sounds present X 4 quads. Abd is soft and non tender X 4 quads. Patient currently denies diarrhea, nausea, vomiting. : No signs and/or symptoms were reported regarding the genitourinary system. EENT: No signs and/or symptoms were reported regarding the EENT system. Derm: Skin is dry, Skin is normal, Skin temperature is warm. Musculoskeletal: Range of motion: intact in all extremities. 18:00 Neuro: Level of Consciousness is awake, alert, obeys commands, Oriented to person, aa5 place, time, situation. Respiratory: Airway is patent Respiratory effort is even, unlabored, Respiratory pattern is regular, symmetrical. Derm: Skin is dry, Skin is normal, Skin temperature is warm. Vital Signs: 15:37 BP 96 / 59; Pulse 75; Resp 20; Temp 98.9; Pulse Ox 99% on R/A; Weight 68.49 kg (R); iw Height 6 ft. 2 in. (187.96 cm); Pain 10/10; 17:14 BP 142 / 87; Pulse 60; Resp 18 S; Pulse Ox 98% on R/A; aa5 18:00 BP 135 / 78; Pulse 62; Resp 16 S; Pulse Ox 99% on R/A; aa5 19:10 BP 123 / 65; Pulse 70; Resp 17; Temp 98; Pulse Ox 98% ; rr5 19:58 BP 131 / 72; Pulse 69; Resp 16; Pulse Ox 98% ; rr5 15:37 Body Mass Index 19.39 (68.49 kg, 187.96 cm) iw 17:14 MD notified of increased BP aa5 ED Course: 15:28 Patient arrived in ED. as 15:38 Arm band placed on left wrist. iw 15:49 Triage completed. iw 16:16 Jerilyn Monaco, MARYANNE is Primary Nurse. aa5 16:21 Vipul Castillo MD is Attending Physician. martin 16:30 Patient has correct armband on for positive identification. Bed in low position. Call aa5 light in reach. Side rails up X2. awake overnight monitor on. Pulse ox on. NIBP on. 16:50 Initial lab(s) drawn, by ED staff, sent to lab. Inserted saline lock: 20 gauge in right aa5 ,using aseptic technique. lower leg per MD, pt is a hard stick. Blood collected. 16:54 XRAY Chest (1 view) In Process Unspecified. EDMS 18:03 Radiology exam delayed due to IV insertion attempt and/or patient not having vm2 appropriate IV at this time. 18:17 Accessed peripheral vein via ultrasound, utilizing dynamic ultrasound technique using jd3 20G Nexia IV catheter ,sterile technique, per hospital protocol. Clean \\T\\ dry. Dressing intact. Good blood return. Flushes easily. 19:00 Report given to MARYANNE Matthews. aa5 19:57 No provider procedures requiring assistance completed. IV discontinued, intact, ea bleeding controlled, No redness/swelling at site. Pressure dressing applied. Administered Medications: 17:00 Drug: NS 0.9% 500 ml Route: IV; Rate: bolus; Site: Other; aa5 17:35 Follow up: IV Status: Completed infusion; IV Intake: 500ml aa5 17:00 Drug: NS 0.9% 1000 ml Route: IV; Rate: 125 ml/hr; Site: Other; aa5 19:56 Follow up: Response: No adverse reaction ea 17:00 Drug: NS 0.9% 500 ml Route: IV; Rate: bolus; Site: Other; aa5 18:00 Follow up: IV Status: Completed infusion; IV Intake: 500ml aa5 17:35 Drug: morphine 4 mg Route: IVP; Site: Other; aa5 17:41 Follow up: Response: No adverse reaction aa5 17:35 Drug: Zofran (Ondansetron) 4 mg Route: IVP; Site: Other; aa5 17:41 Follow up: Response: No adverse reaction aa5 18:35 Drug: Mucomyst - Acetylcysteine 600 mg Route: PO; aa5 19:57 Follow up: Response: No adverse reaction ea 19:56 Drug: Aspirin 162 mg Route: PO; ea 19:57 Follow up: Response: Medication administered at discharge. ea Intake: 17:35 IV: 500ml; Total: 500ml. aa5 18:00 IV: 500ml; Total: 1000ml. aa5 Outcome: 19:38 Discharge ordered by . martin 19:57 Discharged to home via wheelchair. wendie 19:57 Condition: stable 19:57 Discharge instructions given to patient, Instructed on discharge instructions, follow up and referral plans. Demonstrated understanding of instructions, follow-up care. 19:57 Patient left the ED. ea Signatures: Dispatcher [employer] EDVipul Bob MD MD cha Martinez, Amelia as Williams, Irene, RN Jerilyn Cervantes, RN RN aa5 Kiara Zhu Elena, RN RN ea Davies, Jonathon, RN RN jd3 Byron Rai RN RN rr5
--- NOTE | 2020-02-01 19:39 | EDPHYS ---
Physician Documentation [facility] Name: Deacon Howe Jr Age: 84 yrs Sex: Male : 1935 Arrival Date: 02/01/2020 Time: 15:28 Bed 8 Private MD: ED Physician Vipul Castillo HPI: 01/31 16:53 This 84 yrs old Black Male presents to ER via EMS with complaints of Pain All Over. martin 16:53 The patient presents with abdominal pain in the upper abdomen, in the lower abdomen. martin Onset: The symptoms/episode began/occurred 3 day(s) ago. The patient presents with pain that is acute. The symptoms are located in the low back. Onset: The symptoms/episode began/occurred 3 day(s) ago. The pain does not radiate. Associated signs and symptoms: The patient has no apparent associated signs or symptoms. The problem was sustained from a direct blow. Modifying factors: The patient symptoms are alleviated by nothing. Severity of symptoms: At their worst the symptoms were moderate, in the emergency department the symptoms are unchanged. The symptoms do not radiate. Historical: - Allergies: 16:30 NKDA; aa5 - PMHx: 16:30 Chronic pain; colon cancer; Hepatitis; HIV; Hypertension; aa5 - Immunization history:: Adult Immunizations unknown. - Social history:: Smoking status: Patient reports the use of cigarette tobacco products, cigars. - Family history:: not pertinent. ROS: 16:53 Constitutional: Negative for fever, chills, and weight loss, Eyes: Negative for injury, martin pain, redness, and discharge, ENT: Negative for injury, pain, and discharge, Neck: Negative for injury, pain, and swelling, Cardiovascular: Negative for chest pain, palpitations, and edema, Respiratory: Negative for shortness of breath, cough, wheezing, and pleuritic chest pain, : Negative for injury, bleeding, discharge, and swelling, MS/Extremity: Negative for injury and deformity, Skin: Negative for injury, rash, and discoloration, Neuro: Negative for headache, weakness, numbness, tingling, and seizure, Psych: Negative for depression, anxiety, suicide ideation, homicidal ideation, and hallucinations, Allergy/Immunology: Negative for hives, rash, and allergies, Endocrine: Negative for neck swelling, polydipsia, polyuria, polyphagia, and marked weight changes, Hematologic/Lymphatic: Negative for swollen nodes, abnormal bleeding, and unusual bruising. 16:53 Abdomen/GI: Positive for abdominal pain, abdominal cramps. 16:53 Back: Positive for decreased range of motion, pain at rest, flank pain, on the right. 19:37 Cardiovascular: Negative for chest pain, edema, orthopnea, palpitations, paroxysmal martin nocturnal dyspnea, acute changes. Exam: 16:53 Constitutional: This is a well developed, well nourished patient who is awake, alert, martin and in no acute distress. Head/Face: Normocephalic, atraumatic. Eyes: Pupils equal round and reactive to light, extra-ocular motions intact. Lids and lashes normal. Conjunctiva and sclera are non-icteric and not injected. Cornea within normal limits. Periorbital areas with no swelling, redness, or edema. ENT: Nares patent. No nasal discharge, no septal abnormalities noted. Tympanic membranes are normal and external auditory canals are clear. Oropharynx with no redness, swelling, or masses, exudates, or evidence of obstruction, uvula midline. Mucous membranes moist. Neck: Trachea midline, no thyromegaly or masses palpated, and no cervical lymphadenopathy. Supple, full range of motion without nuchal rigidity, or vertebral point tenderness. No Meningismus. Chest/axilla: Normal chest wall appearance and motion. Nontender with no deformity. No lesions are appreciated. Cardiovascular: Regular rate and rhythm with a normal S1 and S2. No gallops, murmurs, or rubs. Normal PMI, no JVD. No pulse deficits. Respiratory: Lungs have equal breath sounds bilaterally, clear to auscultation and percussion. No rales, rhonchi or wheezes noted. No increased work of breathing, no retractions or nasal flaring. Male : Normal genitalia with no discharge or lesions. Skin: Warm, dry with normal turgor. Normal color with no rashes, no lesions, and no evidence of cellulitis. MS/ Extremity: Pulses equal, no cyanosis. Neurovascular intact. Full, normal range of motion. Neuro: Awake and alert, GCS 15, oriented to person, place, time, and situation. Cranial nerves II-XII grossly intact. Motor strength 5/5 in all extremities. Sensory grossly intact. Cerebellar exam normal. Normal gait. Psych: Awake, alert, with orientation to person, place and time. Behavior, mood, and affect are within normal limits. 16:53 Abdomen/GI: Inspection: abdomen appears normal, Bowel sounds: normal, Liver: is firm, Hernia: not appreciated. 16:58 Skin: abscess, that is small, of the left gluteus caroline, old, no red , not tender. martin 19:36 Cardiovascular: Rate: normal, Rhythm: regular, Pulses: Pulses are 4+ in bilateral martin radial, brachial, femoral, popliteal, posterior tibial and and dorsalis pedis arteries.. Heart sounds: normal, normal S1and S2, no S3 or S4, no murmur, no rub, no gallop, Edema: is not appreciated, JVD: is not appreciated. 19:36 Musculoskeletal/extremity: DVT Exam: No signs of deep vein thrombosis. no pain, no swelling, no tenderness, negative Homans' sign noted on exam, no appreciated bluish discoloration, no erythema, no increased warmth. Vital Signs: 15:37 BP 96 / 59; Pulse 75; Resp 20; Temp 98.9; Pulse Ox 99% on R/A; Weight 68.49 kg (R); iw Height 6 ft. 2 in. (187.96 cm); Pain 10/10; 17:14 BP 142 / 87; Pulse 60; Resp 18 S; Pulse Ox 98% on R/A; aa5 18:00 BP 135 / 78; Pulse 62; Resp 16 S; Pulse Ox 99% on R/A; aa5 19:10 BP 123 / 65; Pulse 70; Resp 17; Temp 98; Pulse Ox 98% ; rr5 19:58 BP 131 / 72; Pulse 69; Resp 16; Pulse Ox 98% ; rr5 15:37 Body Mass Index 19.39 (68.49 kg, 187.96 cm) iw 17:14 MD notified of increased BP aa5 MDM: 16:21 Patient medically screened. martin 16:56 Differential diagnosis: Fracture Hydronephrosis Osteomyelitis Pyelonephritis ruptured martin disc, sprain, Ureterolithiasis AAA, diverticulitis, Mesenteric ischemia or infarction, non-specific abd pain, pancreatitis, Peptic Ulcer Disease. Data reviewed: vital signs, nurses notes, lab test result(s), EKG, radiologic studies, CT scan, plain films. Data interpreted: court monitor: rate is 75 beats/min, rhythm is regular, Pulse oximetry: on room air is 99 %. Test interpretation: by ED physician or midlevel provider: ECG, plain radiologic studies. Counseling: I had a detailed discussion with the patient and/or guardian regarding: the historical points, exam findings, and any diagnostic results supporting the discharge/admit diagnosis, lab results, radiology results. 19:43 ED course: no cp, no sob, no abd pain, pt feels better with iv fluid and meal, wants to martin go home, pt is without complaint. no hx of dvt, pe.will refain from all drug use and will rest and maintain hydration. 01/31 16:23 Order name: Basic Metabolic Panel [facility] 01/31 16:23 Order name: CBC with Diff [facility] 01/31 16:23 Order name: LFT's [facility] 01/31 16:23 Order name: Magnesium [facility] 01/31 16:23 Order name: NT PRO-BNP; Complete Time: 17:46 [facility] 01/31 16:23 Order name: PT-INR; Complete Time: 19:21 [facility] 01/31 16:23 Order name: Troponin (emerg Dept Use Only); Complete Time: 17:46 [facility] 01/31 16:23 Order name: Lipase; Complete Time: 17:46 [facility] 01/31 16:23 Order name: Acetaminophen; Complete Time: 17:46 [facility] 01/31 16:23 Order name: ETOH Level; Complete Time: 17:46 [facility] 01/31 16:23 Order name: Ptt, Activated; Complete Time: 19:21 [facility] 01/31 16:23 Order name: Salicylate; Complete Time: 17:46 [facility] 01/31 16:23 Order name: Urine Drug Screen; Complete Time: 17:46 [facility] 01/31 16:23 Order name: CK; Complete Time: 17:46 [facility] 01/31 16:23 Order name: XRAY Chest (1 view); Complete Time: 17:46 [facility] 01/31 16:23 Order name: EKG; Complete Time: 16:24 [facility] 01/31 16:23 Order name: Ckmb; Complete Time: 17:46 [facility] 01/31 16:23 Order name: Basic Metabolic Panel; Complete Time: 17:46 [facility] 01/31 16:23 Order name: CBC with Automated Diff; Complete Time: 19:21 [facility] 01/31 16:23 Order name: Liver (Hepatic) Function; Complete Time: 17:46 [facility] 01/31 16:23 Order name: Magnesium; Complete Time: 17:46 [facility] 01/31 17:22 Order name: Urine Dipstick--Ancillary (enter results); Complete Time: 17:46 [facility] 01/31 16:23 Order name: Cardiac monitoring; Complete Time: 16:48 [facility] 01/31 16:23 Order name: EKG - Nurse/Tech; Complete Time: 16:48 [facility] 01/31 16:23 Order name: IV Saline Lock; Complete Time: 17:02 [facility] 01/31 16:23 Order name: Labs collected and sent; Complete Time: 17:02 [facility] 01/31 16:23 Order name: O2 Per Protocol; Complete Time: 16:48 [facility] 01/31 16:23 Order name: O2 Sat Monitoring; Complete Time: 16:48 [facility] 01/31 16:23 Order name: Urine Dipstick-Ancillary (obtain specimen); Complete Time: 17:19 [facility] 01/31 19:40 Order name: Diet Regular; Complete Time: 19:40 [facility] Administered Medications: 17:00 Drug: NS 0.9% 500 ml Route: IV; Rate: bolus; Site: Other; aa5 17:35 Follow up: IV Status: Completed infusion; IV Intake: 500ml aa5 17:00 Drug: NS 0.9% 1000 ml Route: IV; Rate: 125 ml/hr; Site: Other; aa5 19:56 Follow up: Response: No adverse reaction ea 17:00 Drug: NS 0.9% 500 ml Route: IV; Rate: bolus; Site: Other; aa5 18:00 Follow up: IV Status: Completed infusion; IV Intake: 500ml aa5 17:35 Drug: morphine 4 mg Route: IVP; Site: Other; aa5 17:41 Follow up: Response: No adverse reaction aa5 17:35 Drug: Zofran (Ondansetron) 4 mg Route: IVP; Site: Other; aa5 17:41 Follow up: Response: No adverse reaction aa5 18:35 Drug: Mucomyst - Acetylcysteine 600 mg Route: PO; aa5 19:57 Follow up: Response: No adverse reaction ea 19:56 Drug: Aspirin 162 mg Route: PO; ea 19:57 Follow up: Response: Medication administered at discharge. ea Disposition: 02/01/20 19:38 Discharged to Home. Impression: Malaise and fatigue, Volume depletion - mild. - Condition is Stable. - Discharge Instructions: Weakness, Weakness, [id number], Aspirin and Your Heart. - Medication Reconciliation Form, Thank You Letter, Antibiotic Education, Prescription Opioid Use form. - Follow up: Private Physician; When: 2 - 3 days; Reason: Recheck today's complaints, Continuance of care, Re-evaluation by your physician. - Problem is new. - Symptoms have improved. Signatures: Dispatcher [employer] [facility] Vipul Castillo MD MD cha Calderon, Audri, RN RN aa5 Nayla Palmer RN RN wendie Corrections: (The following items were deleted from the chart) 19:39 16:58 Angio Aorta For Dissection+CT.RAD.BRZ ordered. [facility] 19:57 19:38 02/01/2020 19:38 Discharged to Home. Impression: Malaise and fatigue; Volume ea depletion - mild. Condition is Stable. Forms are Medication Reconciliation Form, Thank You Letter, Antibiotic Education, Prescription Opioid Use. Follow up: Private Physician; When: 2 - 3 days; Reason: Recheck today's complaints, Continuance of care, Re-evaluation by your physician. Problem is new. Symptoms have improved. martin
[2020-02-01] MEDS ORDERED: ASPIRIN 81 MG CHEWABLE TABLET ONE (19:57)
--- NOTE | 2020-02-02 06:24 | EKG ---
Test Date: 2020-02-01 Test Time: 16:42:07 Mental Health Worker: KATELYN MEASUREMENT RESULTS: Intervals: Rate: 62 [place]: 182 QRSD: 80 QT: 400 QTc: 406 [place]: P: 61 [place]: 182 QRS: 80 T: 76 INTERPRETIVE STATEMENTS: Normal sinus rhythm with sinus arrhythmia Normal ECG Compared to ECG 12/14/2019 13:49:50 No significant changes Electronically Signed On 02-02-20 06:22:36 SAP BUSINESS ANALYST by Rocco Menjivar
[2020-02-02 10:02] VITALS: TEMP 98.9
[2020-02-02 10:14] VITALS: BP 135/78; O2SAT 99
== END 2020-02-01 19:57 | disposition home or self-care (01) ==
LOC: ER 15:27
DX: E86.9 Volume depletion, unspecified (principal); R53.83 Other fatigue; Z21 Asymptomatic human immunodeficiency virus [HIV] infection status; I10 Essential (primary) hypertension; F17.290 Nicotine dependence, other tobacco product, uncomplicated; Z85.038 Personal history of other malignant neoplasm of large intestine
CPT/HCPCS: 96361; 93005; 85025; 80048; 36415; 80320; 83735; 82550; 80329 ×2; 85610; 80076; 80307 ×8; 85730; 81003; 84484; 82553; 83690; 83880; 71045; 96375; 96374; 99285; J7030; J2405

== ENCOUNTER 2020-02-03 20:05 | Emergency (ER) | payer OTHER ==
[2020-02-03] MEDS ORDERED: NA CHLORIDE 0.9% 1,000 ML ONE (21:16)
[2020-02-03 22:12] LABS: Albumin 3.3 g/dL (3.4-5.0); Bilirubin Direct 0.2 mg/dL (0-0.2); Bilirubin Total 0.6 mg/dL (0.2-1.0); Potassium 4.6 mmol/L (3.5-5.1); Protein, Total 7.1 g/dL (6.4-8.2)
[2020-02-03 22:16] LABS: Absolute Lymphocytes (CBC) 1.4 K/uL (0.7-4.9); Lymphocytes % 29.4 % (15.3-44.8); MPV 7.8 fL (7.6-11.3); RBC Red Blood Cell Count 5.31 M/uL (4.33-5.43)
[2020-02-03 22:36] LABS: Urine Blood NEGATIVE (NEG); Urine Glucose NEGATIVE (NEG); Urine Protein NEGATIVE (NEG)
--- NOTE | 2020-02-03 23:22 | ER ---
Nurse's Notes [facility] Name: Deacon Howe Jr Age: 84 yrs Sex: Male : 1935 Arrival Date: 02/03/2020 Time: 20:09 Bed 20 Private MD: Diagnosis: Diarrhea, unspecified Presentation: 02/02 20:09 Chief complaint: EMS states: PT reports that he was constipated earlier and went to [facility], they gave him a drink for his constipation and now he cannot stop going to the bath room. Coronavirus screen: Client denies travel out of the [place] in the last 14 days. At this time, the client does not indicate any symptoms associated with coronavirus-19. Ebola Screen: No symptoms or risks identified at this time. Risk Assessment: Do you want to hurt yourself or someone else? Patient reports no desire to harm self or others. Onset of symptoms was February 03, 2020. 20:09 Method Of Arrival: EMS: [facility] 20:09 Acuity: ALIN 4 jb4 20:09 Initial Sepsis Screen: Does the patient meet any 2 criteria? No. Patient's initial jb4 sepsis screen is negative. Does the patient have a suspected source of infection? No. Patient's initial sepsis screen is negative. Historical: - Allergies: 20:10 NKDA; jb4 - Home Meds: 20:23 lidocaine patch [Active]; jb4 - PMHx: 20:10 Chronic pain; Hepatitis; HIV; Hypertension; colon cancer; jb4 - PSHx: 20:23 Cholecystectomy; R-hip replacement; right eye; jb4 - Immunization history:: Adult Immunizations unknown. - Social history:: Smoking status: Patient reports the use of cigarette tobacco products, smokes one-half pack cigarettes per day. Screenin:10 Abuse screen: Denies threats or abuse. Nutritional screening: No deficits noted. jb4 Tuberculosis screening: No symptoms or risk factors identified. Fall Risk None identified. Assessment: 20:10 General: Appears in no apparent distress. comfortable, Behavior is calm, cooperative, jb4 appropriate for age. Pain: Denies pain. Neuro: Level of Consciousness is awake, alert, obeys commands, Oriented to person, place, time, situation. Cardiovascular: Patient's skin is warm and dry. Respiratory: Airway is patent Respiratory effort is even, unlabored, Respiratory pattern is regular, symmetrical. GI: Reports diarrhea. : No signs and/or symptoms were reported regarding the genitourinary system. EENT: No signs and/or symptoms were reported regarding the EENT system. Derm: Skin is intact, Skin is dry, Skin is normal, Skin temperature is warm. Musculoskeletal: Circulation, motion, and sensation intact. Range of motion: intact in all extremities. 21:15 Reassessment: Patient appears in no apparent distress at this time. Patient and/or jb4 family updated on plan of care and expected duration. Pain level reassessed. Patient is alert, oriented x 3, equal unlabored respirations, skin warm/dry/pink. 22:30 Reassessment: Patient appears in no apparent distress at this time. Patient and/or jb4 family updated on plan of care and expected duration. Pain level reassessed. Patient is alert, oriented x 3, equal unlabored respirations, skin warm/dry/pink. PT given juice and a sandwhich per request. 23:37 Reassessment: Patient appears in no apparent distress at this time. Patient and/or jb4 family updated on plan of care and expected duration. Pain level reassessed. Patient is alert, oriented x 3, equal unlabored respirations, skin warm/dry/pink. Vital Signs: 20:20 BP 153 / 81; Pulse 73; Resp 16; Temp 97.8(O); Pulse Ox 100% on R/A; Weight 70.31 kg jb4 (R); Height 6 ft. 2 in. (187.96 cm); Pain 0/10; 21:15 BP 157 / 86; Pulse 65; Resp 16; Pulse Ox 100% on R/A; jb4 22:30 BP 151 / 116; Pulse 79; Resp 16; Pulse Ox 100% on R/A; jb4 23:15 BP 151 / 77; Pulse 68; Resp 16; Pulse Ox 100% on R/A; jb4 20:20 Body Mass Index 19.90 (70.31 kg, 187.96 cm) jb4 ED Course: 20:09 Patient arrived in ED. jb4 20:10 Jose Angel Bae MD is Attending Physician. [facility] 20:10 Triage completed. jb4 20:17 Hudson Johnson, MARYANNE is Primary Nurse. jb4 20:20 Arm band placed on. jb4 20:20 Patient has correct armband on for positive identification. Bed in low position. Call jb4 light in reach. Side rails up X 1. Pulse ox on. NIBP on. 21:40 Initial lab(s) drawn, by me, sent to lab. Inserted saline lock: 18 gauge in left ,using jb4 aseptic technique. Lower extremity Blood collected. 23:38 No provider procedures requiring assistance completed. IV discontinued, intact, jb4 bleeding controlled, No redness/swelling at site. Pressure dressing applied. Administered Medications: 21:40 Drug: NS 0.9% 1000 ml {Note: administered via left lower extremity .} Route: IV; Rate: jb4 1000 ml; Site: Other; 22:40 Follow up: Response: No adverse reaction; IV Status: Completed infusion; IV Intake: jb4 1000ml Intake: 22:40 IV: 1000ml; Total: 1000ml. jb4 Outcome: 23:21 Discharge ordered by . [facility] 23:39 Discharged to home via wheelchair. jb4 23:39 Condition: stable 23:39 Discharge instructions given to patient, Instructed on discharge instructions, follow up and referral plans. Demonstrated understanding of instructions, follow-up care. 23:39 Patient left the ED. jb4 Signatures: Hudson Johnson RN RN jb4 Jose Angel Bae MD MD [facility]
--- NOTE | 2020-02-03 23:22 | EDPHYS ---
Physician Documentation [facility] Name: Deacon Howe Jr Age: 84 yrs Sex: Male : 1935 Arrival Date: 02/03/2020 Time: 20:09 Bed 20 Private MD: ED Physician Jose Angel Bae HPI: 02/02 21:27 This 84 yrs old Black Male presents to ER via EMS with complaints of Diarrhea. mh7 21:27 The patient presents to the emergency department with diarrhea, that is continuous. mh7 Onset: The symptoms/episode began/occurred today. Possible causes: Medication. The symptoms are aggravated by nothing. The symptoms are alleviated by nothing. Associated signs and symptoms: Pertinent positives: constipation, diarrhea, Pertinent negatives: abdominal pain, anorexia, belching, dysuria, fever, flatulence, GI bleeding, hematuria, nausea, vomiting. Severity of symptoms: At their worst the symptoms were moderate today, in the emergency department the symptoms have improved moderately. The patient has been recently seen by a physician: the patient's primary care provider, earlier today. 23:22 Patient states that he was constipated so he went to see his doctor and was given a mh7 liquid solution to help with his constipation. He states that after drinking the solution he started to have multiple episodes of diarrhea. He denies any abdominal pain, fever, nausea, vomiting, dysuria, chest pain, SOB.. Historical: - Allergies: 20:10 NKDA; jb4 - Home Meds: 20:23 lidocaine patch [Active]; jb4 - PMHx: 20:10 Chronic pain; Hepatitis; HIV; Hypertension; colon cancer; jb4 - PSHx: 20:23 Cholecystectomy; R-hip replacement; right eye; jb4 - Immunization history:: Adult Immunizations unknown. - Social history:: Smoking status: Patient reports the use of cigarette tobacco products, smokes one-half pack cigarettes per day. ROS: 21:27 Constitutional: Negative for fever, chills, and weight loss, Eyes: Negative for injury, mh7 pain, redness, and discharge, ENT: Negative for injury, pain, and discharge, Neck: Negative for injury, pain, and swelling, Cardiovascular: Negative for chest pain, palpitations, and edema, Respiratory: Negative for shortness of breath, cough, wheezing, and pleuritic chest pain, Back: Negative for injury and pain, : Negative for injury, bleeding, discharge, and swelling, MS/Extremity: Negative for injury and deformity, Skin: Negative for injury, rash, and discoloration, Neuro: Negative for headache, weakness, numbness, tingling, and seizure, Psych: Negative for depression, anxiety, suicide ideation, homicidal ideation, and hallucinations, Allergy/Immunology: Negative for hives, rash, and allergies, Endocrine: Negative for neck swelling, polydipsia, polyuria, polyphagia, and marked weight changes, Hematologic/Lymphatic: Negative for swollen nodes, abnormal bleeding, and unusual bruising. Exam: 21:27 Constitutional: This is a well developed, well nourished patient who is awake, alert, mh7 and in no acute distress. Head/Face: Normocephalic, atraumatic. Eyes: Pupils equal round and reactive to light, extra-ocular motions intact. Lids and lashes normal. Conjunctiva and sclera are non-icteric and not injected. Cornea within normal limits. Periorbital areas with no swelling, redness, or edema. Neck: Trachea midline, no thyromegaly or masses palpated, and no cervical lymphadenopathy. Supple, full range of motion without nuchal rigidity, or vertebral point tenderness. No Meningismus. Chest/axilla: Normal chest wall appearance and motion. Nontender with no deformity. No lesions are appreciated. Cardiovascular: Regular rate and rhythm with a normal S1 and S2. No gallops, murmurs, or rubs. Normal PMI, no JVD. No pulse deficits. Respiratory: Lungs have equal breath sounds bilaterally, clear to auscultation and percussion. No rales, rhonchi or wheezes noted. No increased work of breathing, no retractions or nasal flaring. Abdomen/GI: Soft, non-tender, with normal bowel sounds. No distension or tympany. No guarding or rebound. No evidence of tenderness throughout. Back: No spinal tenderness. No costovertebral tenderness. Full range of motion. Skin: Warm, dry with normal turgor. Normal color with no rashes, no lesions, and no evidence of cellulitis. MS/ Extremity: Pulses equal, no cyanosis. Neurovascular intact. Full, normal range of motion. Neuro: Awake and alert, GCS 15, oriented to person, place, time, and situation. Cranial nerves II-XII grossly intact. Motor strength 5/5 in all extremities. Sensory grossly intact. Cerebellar exam normal. Normal gait. Psych: Awake, alert, with orientation to person, place and time. Behavior, mood, and affect are within normal limits. Vital Signs: 20:20 BP 153 / 81; Pulse 73; Resp 16; Temp 97.8(O); Pulse Ox 100% on R/A; Weight 70.31 kg jb4 (R); Height 6 ft. 2 in. (187.96 cm); Pain 0/10; 21:15 BP 157 / 86; Pulse 65; Resp 16; Pulse Ox 100% on R/A; jb4 22:30 BP 151 / 116; Pulse 79; Resp 16; Pulse Ox 100% on R/A; jb4 23:15 BP 151 / 77; Pulse 68; Resp 16; Pulse Ox 100% on R/A; jb4 20:20 Body Mass Index 19.90 (70.31 kg, 187.96 cm) jb4 MDM: 23:18 Differential diagnosis: gastritis, pancreatitis, viral gastroenteritis, 7 gastroenteritis, medication reaction. Data reviewed: vital signs, nurses notes, old medical records, lab test result(s), CBC, electrolytes, urinalysis. Data interpreted: Pulse oximetry: on room air is 100 %. Interpretation: normal. Counseling: I had a detailed discussion with the patient and/or guardian regarding: the historical points, exam findings, and any diagnostic results supporting the discharge/admit diagnosis, the presence of at least one elevated blood pressure reading (>120/80) during this emergency department visit, lab results, the need for outpatient follow up, to return to the emergency department if symptoms worsen or persist or if there are any questions or concerns that arise at home. Response to treatment: the patient's symptoms have resolved after treatment, the patient's blood pressure is in an acceptable range, mental status has returned to baseline, the patient no longer shows bradycardia, the patient is not short of breath, the patient is not tachycardic, the patient's pain is gone, the patient's temperature has normalized, the patient is now symptom free. 23:21 Patient medically screened. [facility] 02/02 20:32 Order name: Basic Metabolic Panel; Complete Time: 23:01 [facility] 02/02 20:32 Order name: CBC with Diff; Complete Time: 23:01 7 02/02 20:32 Order name: Hepatic Function; Complete Time: 23:01 [facility] 02/02 20:32 Order name: Lipase; Complete Time: 23:01 [facility] 02/02 22:34 Order name: Urine Dipstick--Ancillary (enter results); Complete Time: 23:01 2 02/02 20:32 Order name: IV Saline Lock; Complete Time: 21:45 [facility] 02/02 20:32 Order name: Labs collected and sent; Complete Time: 21:45 [facility] 02/02 20:32 Order name: Urine Dipstick-Ancillary (obtain specimen); Complete Time: 22:35 7 Administered Medications: 21:40 Drug: NS 0.9% 1000 ml {Note: administered via left lower extremity .} Route: IV; Rate: jb4 1000 ml; Site: Other; 22:40 Follow up: Response: No adverse reaction; IV Status: Completed infusion; IV Intake: jb4 1000ml Disposition: 02/03/20 23:21 Discharged to Home. Impression: Diarrhea, unspecified. - Condition is Stable. - Discharge Instructions: Diarrhea, Adult. - Medication Reconciliation Form, Thank You Letter, Antibiotic Education, Prescription Opioid Use form. - Follow up: Private Physician; When: 1 - 2 days; Reason: Worsening of condition, Recheck today's complaints, Continuance of care, Re-evaluation by your physician. - Problem is new. - Symptoms are resolved. Signatures: Dispatcher [employer] Hudson Burrell RN RN jb4 Jose Angel Bae MD MD 7 Corrections: (The following items were deleted from the chart) 23:39 23:21 02/03/2020 23:21 Discharged to Home. Impression: Diarrhea, unspecified. Condition jb4 is Stable. Forms are Medication Reconciliation Form, Thank You Letter, Antibiotic Education, Prescription Opioid Use. Follow up: Private Physician; When: 1 - 2 days; Reason: Worsening of condition, Recheck today's complaints, Continuance of care, Re-evaluation by your physician. Problem is new. Symptoms are resolved. 7
[2020-02-04 06:40] VITALS: TEMP 97.8; O2SAT 100
[2020-02-04 06:45] VITALS: BP 151/77
== END 2020-02-03 23:39 | disposition home or self-care (01) ==
LOC: ER 20:05
DX: R19.7 Diarrhea, unspecified (principal); F17.210 Nicotine dependence, cigarettes, uncomplicated; I10 Essential (primary) hypertension; Z21 Asymptomatic human immunodeficiency virus [HIV] infection status; Z85.038 Personal history of other malignant neoplasm of large intestine
CPT/HCPCS: 85025; 80048; 36415; 80076; 81003; 83690; 96360; 99284; J7030

== ENCOUNTER 2020-02-09 18:16 | Emergency (ER) | payer OTHER ==
--- NOTE | 2020-02-09 20:18 | RAD REPORT ---
EXAM DESCRIPTION: Viet Single View02/09/2020 8:12 pm CLINICAL HISTORY: Chest pain COMPARISON: February 01, 2020 FINDINGS: Right pleural calcification is unchanged. Mild chronic appearing interstitial lung opacities are present. The lungs appear clear of acute infiltrate. The heart is normal size IMPRESSION: No acute abnormalities displayed
[2020-02-09 20:19] LABS: Absolute Lymphocytes (CBC) 1.4 K/uL (0.7-4.9); Basophils % 1.4 % (0-1.3); Hematocrit 39.2 % (39.6-49.0); Lymphocytes % 30.3 % (15.3-44.8); MPV 7.7 fL (7.6-11.3); RBC Red Blood Cell Count 4.93 M/uL (4.33-5.43)
[2020-02-09] MEDS ORDERED: MORPHINE 4 MG/ML SYR ONE (20:19)
[2020-02-09 20:20] LABS: Protime INR 0.97
[2020-02-09] MEDS ORDERED: NA CHLORIDE 0.9% 1,000 ML ONE (20:20)
[2020-02-09] MEDS ORDERED: ONDANSETRON 4 MG/2 ML VIAL ONE (20:20)
[2020-02-09 20:21] LABS: Urine Blood NEGATIVE (NEG); Urine Glucose NEGATIVE (NEG); Urine Protein NEGATIVE (NEG)
[2020-02-09 20:30] LABS: Barbiturates NEGATIVE (NEGATIVE); Benzodiazepines NEGATIVE (NEGATIVE); Cocaine POSITIVE (NEGATIVE); METHAMPHETAM NEGATIVE (NEGATIVE); Methadone NEGATIVE (NEGATIVE); Opiates NEGATIVE (NEGATIVE); Phencyclidine NEGATIVE (NEGATIVE); THC Cannibis NEGATIVE (NEGATIVE)
[2020-02-09 20:32] LABS: ALT/SGPT 26 U/L (12-78); AST/SGOT 27 U/L (15-37); Albumin 2.7 g/dL (3.4-5.0); Alkaline Phosphatase 94 U/L (45-117); BUN Blood Urea Nitrogen 15 mg/dL (7-18); Bicarbonate 25 mmol/L (21-32); Bilirubin Direct 0.1 mg/dL (0-0.2); Bilirubin Total 0.3 mg/dL (0.2-1.0); Glucose Level 81 mg/dL (74-106); Lipase 160 U/L (73-393); Magnesium 2.1 mg/dL (1.8-2.4); NT PRO-BNP 216 pg/mL (<450); Potassium 4.3 mmol/L (3.5-5.1); Protein, Total 6.4 g/dL (6.4-8.2); Sodium Level 141 mmol/L (136-145); Troponin (Emerg Dept Use Only) < 0.02 ng/mL (0.0-0.045)
[2020-02-09] MEDS ORDERED: ASPIRIN 81 MG CHEWABLE TABLET ONE (20:47)
--- NOTE | 2020-02-09 20:56 | ER ---
Nurse's Notes [facility] Name: Deacon Howe Jr Age: 84 yrs Sex: Male : 1935 Arrival Date: 02/09/2020 Time: 18:15 Bed 15 Private MD: None, None Diagnosis: Cocaine abuse;Malaise and fatigue Presentation: 02/08 18:15 Chief complaint: EMS states: Toned out for right sided chest pain, side pain, low back jl7 pain, pt reports pain all over. Coronavirus screen: Client denies travel out of the [place] in the last 14 days. At this time, the client does not indicate any symptoms associated with coronavirus-19. Ebola Screen: No symptoms or risks identified at this time. Initial Sepsis Screen: Does the patient meet any 2 criteria? No. Patient's initial sepsis screen is negative. Does the patient have a suspected source of infection? No. Patient's initial sepsis screen is negative. Risk Assessment: Do you want to hurt yourself or someone else? Patient reports no desire to harm self or others. Onset of symptoms is unknown. Care prior to arrival: None. Transition of care: patient was not received from another setting of care. 18:15 Method Of Arrival: EMS: [facility] 18:15 Acuity: ALIN 3 jl7 Triage Assessment: 18:33 General: Appears in no apparent distress. uncomfortable, Behavior is calm, cooperative. jl7 Pain: Complains of pain in "All over." Pain currently is 10 out of 10 on a pain scale. Quality of pain is described as aching, Pain began years ago. Is continuous. Neuro: Level of Consciousness is awake, alert, obeys commands, Oriented to person, place, time, situation. Cardiovascular: Patient's skin is warm and dry. Respiratory: Airway is patent Respiratory effort is even, unlabored, Respiratory pattern is regular, symmetrical. Derm: Skin is dry, Skin is normal, Skin temperature is warm. Historical: - Allergies: 18:33 NKDA; jl7 - PMHx: 18:33 Chronic pain; colon cancer; Hepatitis; HIV; Hypertension; jl7 - PSHx: 18:33 Cholecystectomy; R-hip replacement; right eye; jl7 - Immunization history:: Adult Immunizations unknown. - Social history:: Smoking status: Patient reports the use of cigarette tobacco products, smokes one pack cigarettes per day. - Family history:: not pertinent. Screenin:33 Abuse screen: Denies threats or abuse. Denies injuries from another. Nutritional jl7 screening: No deficits noted. Tuberculosis screening: No symptoms or risk factors identified. 19:00 Fall Risk Ambulatory Aid- Crutches/Cane/Walker (15 pts). Gait- Normal/Bed jb4 Rest/Wheelchair (0 pts) Total Pedroza Fall Scale indicates No Risk (0-24 pts). Assessment: 18:33 General: See triage assessment. jl7 19:10 Reassessment: Patient appears in no apparent distress at this time. Patient and/or jb4 family updated on plan of care and expected duration. Pain level reassessed. Pt is resting in bed with eyes closed, no s/s of pain or distress noted. 20:15 Reassessment: Patient appears in no apparent distress at this time. Patient and/or jb4 family updated on plan of care and expected duration. Pain level reassessed. Patient is alert, oriented x 3, equal unlabored respirations, skin warm/dry/pink. 21:17 Reassessment: Patient appears in no apparent distress at this time. Patient and/or jb4 family updated on plan of care and expected duration. Pain level reassessed. Patient is alert, oriented x 3, equal unlabored respirations, skin warm/dry/pink. Vital Signs: 18:15 BP 156 / 88; Pulse 67; Resp 17; Temp 97.6; Pulse Ox 100% ; Pain 10/10; jl7 20:15 BP 146 / 76; Pulse 69; Resp 16; Pulse Ox 100% on R/A; jb4 21:00 BP 146 / 75; Pulse 58; Resp 16; Pulse Ox 100% on R/A; jb4 ED Course: 18:15 Patient arrived in ED. jl7 18:32 Triage completed. jl7 18:33 Arm band placed on right wrist. jl7 18:33 Patient has correct armband on for positive identification. Bed in low position. Call 7 light in reach. Side rails up X 1. Pulse ox on. NIBP on. Warm blanket given. 19:08 Hudson Johnson RN is Primary Nurse. [facility] 19:11 Vipul Castillo MD is Attending Physician. [facility] 19:12 None, None is Private Physician. sg 19:55 Inserted saline lock: 18 gauge in right ,using aseptic technique. Left lower extremity. jb4 20:12 XRAY Chest (1 view) In Process Unspecified. EDMS 21:18 No provider procedures requiring assistance completed. IV discontinued, intact, jb4 bleeding controlled, No redness/swelling at site. Pressure dressing applied. Administered Medications: 20:10 Drug: Zofran (Ondansetron) 4 mg {Note: left lower extremity .} Route: IVP; Site: Other; jb4 21:00 Follow up: Response: No adverse reaction jb4 20:12 Drug: morphine 4 mg {Note: Left lower extremity .} Route: IVP; Site: Other; jb4 21:00 Follow up: Response: No adverse reaction; Pain is decreased; RASS: Alert and Calm (0) jb4 20:13 Drug: NS 0.9% 1000 ml {Note: Left Lower extremity .} Route: IV; Rate: 125 ml/hr; Site: [facility] Other; 21:13 Follow up: Response: No adverse reaction; IV Status: Order to discontinue infusion; IV jb4 Intake: 125ml 20:34 Drug: Aspirin 162 mg Route: PO; jb4 21:00 Follow up: Response: No adverse reaction jb4 Intake: 21:13 IV: 125ml; Total: 125ml. jb4 Outcome: 20:56 Discharge ordered by . martin 21:18 Discharged to home with family. jb4 21:18 Condition: stable 21:18 Discharge instructions given to patient, Instructed on discharge instructions, follow up and referral plans. medication usage, Demonstrated understanding of instructions, follow-up care, medications, Prescriptions given X 1. 21:19 Patient left the ED. jb4 Signatures: Dispatcher [employer] EDMS Rufino Camp, Vipul Black RN, MD MD cha Bryson, James RN RN jb4 Skye Gore RN RN jl7
--- NOTE | 2020-02-09 20:56 | EDPHYS ---
Physician Documentation [facility] Name: Deacon Howe Jr Age: 84 yrs Sex: Male : 1935 Arrival Date: 02/09/2020 Time: 18:15 Bed 15 Private MD: None, None ED Physician Vipul Castillo HPI: 02/08 20:12 This 84 yrs old Black Male presents to ER via EMS with complaints of Pain All Over. martin 20:12 The patient or guardian reports chest pain that is located primarily in the anterior [facility] chest wall. The patient presents with abdominal pain in the upper abdomen, in the lower abdomen, abdominal distention in the right upper quadrant, in the right lower quadrant. Onset: The symptoms/episode began/occurred yesterday. The patient complains of pain in the right mid back and right low back. The pain does not radiate. Modifying factors: The symptoms are alleviated by remaining still, the symptoms are aggravated by movement. The pain does not radiate. The symptoms do not radiate. Historical: - Allergies: 18:33 NKDA; jl7 - PMHx: 18:33 Chronic pain; colon cancer; Hepatitis; HIV; Hypertension; jl7 - PSHx: 18:33 Cholecystectomy; R-hip replacement; right eye; jl7 - Immunization history:: Adult Immunizations unknown. - Social history:: Smoking status: Patient reports the use of cigarette tobacco products, smokes one pack cigarettes per day. - Family history:: not pertinent. ROS: 20:12 Constitutional: Negative for fever, chills, and weight loss, Eyes: Negative for injury, martin pain, redness, and discharge, ENT: Negative for injury, pain, and discharge, Neck: Negative for injury, pain, and swelling, Respiratory: Negative for shortness of breath, cough, wheezing, and pleuritic chest pain, Back: Negative for injury and pain, : Negative for injury, bleeding, discharge, and swelling, MS/Extremity: Negative for injury and deformity, Skin: Negative for injury, rash, and discoloration, Neuro: Negative for headache, weakness, numbness, tingling, and seizure, Psych: Negative for depression, anxiety, suicide ideation, homicidal ideation, and hallucinations, Allergy/Immunology: Negative for hives, rash, and allergies, Endocrine: Negative for neck swelling, polydipsia, polyuria, polyphagia, and marked weight changes. 20:12 Cardiovascular: Positive for chest pain, of the chest. 20:12 Abdomen/GI: Positive for abdominal pain, of the anterior aspect of right lateral abdomen, posterior aspect of right lateral abdomen, right upper quadrant and right lower quadrant. Exam: 20:12 Constitutional: This is a well developed, well nourished patient who is awake, alert, martin and in no acute distress. Head/Face: Normocephalic, atraumatic. Eyes: Pupils equal round and reactive to light, extra-ocular motions intact. Lids and lashes normal. Conjunctiva and sclera are non-icteric and not injected. Cornea within normal limits. Periorbital areas with no swelling, redness, or edema. ENT: Nares patent. No nasal discharge, no septal abnormalities noted. Tympanic membranes are normal and external auditory canals are clear. Oropharynx with no redness, swelling, or masses, exudates, or evidence of obstruction, uvula midline. Mucous membranes moist. Neck: Trachea midline, no thyromegaly or masses palpated, and no cervical lymphadenopathy. Supple, full range of motion without nuchal rigidity, or vertebral point tenderness. No Meningismus. Chest/axilla: Normal chest wall appearance and motion. Nontender with no deformity. No lesions are appreciated. Cardiovascular: Regular rate and rhythm with a normal S1 and S2. No gallops, murmurs, or rubs. Normal PMI, no JVD. No pulse deficits. Respiratory: Lungs have equal breath sounds bilaterally, clear to auscultation and percussion. No rales, rhonchi or wheezes noted. No increased work of breathing, no retractions or nasal flaring. Abdomen/GI: Soft, non-tender, with normal bowel sounds. No distension or tympany. No guarding or rebound. No evidence of tenderness throughout. Back: No spinal tenderness. No costovertebral tenderness. Full range of motion. Male : Normal genitalia with no discharge or lesions. Skin: Warm, dry with normal turgor. Normal color with no rashes, no lesions, and no evidence of cellulitis. MS/ Extremity: Pulses equal, no cyanosis. Neurovascular intact. Full, normal range of motion. Neuro: Awake and alert, GCS 15, oriented to person, place, time, and situation. Cranial nerves II-XII grossly intact. Motor strength 5/5 in all extremities. Sensory grossly intact. Cerebellar exam normal. Normal gait. Psych: Awake, alert, with orientation to person, place and time. Behavior, mood, and affect are within normal limits. 20:19 ECG was reviewed by the Attending Physician. [facility] Vital Signs: 18:15 BP 156 / 88; Pulse 67; Resp 17; Temp 97.6; Pulse Ox 100% ; Pain 10/10; jl7 20:15 BP 146 / 76; Pulse 69; Resp 16; Pulse Ox 100% on R/A; jb4 21:00 BP 146 / 75; Pulse 58; Resp 16; Pulse Ox 100% on R/A; jb4 MDM: 19:11 Patient medically screened. [facility] 20:16 Differential diagnosis: abnormal EKG, anxiety, coronary artery disease chest wall pain, martin UTI, pancreatitis, peptic ulcer disease, pneumonia, pneumothorax. 20:17 HEART Score: History: Slightly Suspicious (0), ECG: Normal (0), Age: > or = 65 years martin (2), Risk Factors: > or = 3 Risk factors for atherosclerotic disease (2), [Hypercholesterolemia] [Hypertension] [Active Smoker] [+ Family HX] Troponin: < or = 1 x Normal Limit (0). The patient was given aspirin in the Emergency Department. The patient's deep vein thrombosis risk score was calculated as follows: Total Score: 0. This patient was found to be at low risk for a deep vein thrombosis by using the Well's assessment criteria. The patient's pulmonary embolism risk score was calculated as follows: Total Score: 0-2 points. This patient was found to be at low risk for a pulmonary embolism by using the Well's assessment criteria. CHYNA Risk Score: TOTAL SCORE = 0. Data reviewed: vital signs, nurses notes, lab test result(s), EKG, radiologic studies, plain films. Data interpreted: monitoring manager: rate is 67 beats/min, rhythm is regular, Pulse oximetry: on room air is 100 %. Test interpretation: by ED physician or midlevel provider: ECG, plain radiologic studies. 02/08 19:42 Order name: Basic Metabolic Panel; Complete Time: 20:51 [facility] 02/08 19:42 Order name: CBC with Diff; Complete Time: 20:51 [facility] 02/08 19:42 Order name: LFT's; Complete Time: 20:51 [facility] 02/08 19:42 Order name: Magnesium; Complete Time: 20:51 [facility] 02/08 19:42 Order name: NT PRO-BNP; Complete Time: 20:51 [facility] 02/08 19:42 Order name: PT-INR; Complete Time: 20:51 [facility] 02/08 19:42 Order name: Troponin (emerg Dept Use Only); Complete Time: 20:51 [facility] 02/08 19:42 Order name: XRAY Chest (1 view); Complete Time: 20:51 [facility] 02/08 19:42 Order name: Lipase; Complete Time: 20:51 [facility] 02/08 19:42 Order name: UDS; Complete Time: 20:51 [facility] 02/08 20:10 Order name: Urine Dipstick--Ancillary (enter results); Complete Time: 20:51 [facility] 02/08 19:42 Order name: EKG; Complete Time: 19:43 [facility] 02/08 19:42 Order name: Cardiac monitoring; Complete Time: 20:00 [facility] 02/08 19:42 Order name: EKG - Nurse/Tech; Complete Time: 20:22 [facility] 02/08 19:42 Order name: IV Saline Lock; Complete Time: 20:00 [facility] 02/08 19:42 Order name: Labs collected and sent; Complete Time: 20:00 [facility] 02/08 19:42 Order name: O2 Per Protocol; Complete Time: 20:00 [facility] 02/08 19:42 Order name: O2 Sat Monitoring; Complete Time: 20:00 [facility] 02/08 19:42 Order name: Urine Dipstick-Ancillary (obtain specimen); Complete Time: 20:00 [facility] EC:19 Rate is 63 beats/min. Rhythm is regular. QRS [place] is Normal. [place] interval is normal. QRS martin interval is normal. QT interval is normal. No Q waves. T waves are Normal. No ST changes noted. Clinical impression: Normal ECG and No evidence of ischemia. Interpreted by me. Reviewed by me. Administered Medications: 20:10 Drug: Zofran (Ondansetron) 4 mg {Note: left lower extremity .} Route: IVP; Site: Other; jb4 21:00 Follow up: Response: No adverse reaction jb4 20:12 Drug: morphine 4 mg {Note: Left lower extremity .} Route: IVP; Site: Other; jb4 21:00 Follow up: Response: No adverse reaction; Pain is decreased; RASS: Alert and Calm (0) jb4 20:13 Drug: NS 0.9% 1000 ml {Note: Left Lower extremity .} Route: IV; Rate: 125 ml/hr; Site: [facility] Other; 21:13 Follow up: Response: No adverse reaction; IV Status: Order to discontinue infusion; IV jb4 Intake: 125ml 20:34 Drug: Aspirin 162 mg Route: PO; [facility] 21:00 Follow up: Response: No adverse reaction jb4 Disposition: 02/09/20 20:56 Discharged to Home. Impression: Cocaine abuse, Malaise and fatigue. - Condition is Stable. - Discharge Instructions: Stimulant Use Disorder-Cocaine, Weakness, Weakness, [id number], Aspirin and Your Heart. - Prescriptions for Pepcid 20 mg Oral Tablet - take 1 tablet by ORAL route every 12 hours for 10 days; 20 tablet. - Medication Reconciliation Form, Thank You Letter, Antibiotic Education, Prescription Opioid Use form. - Follow up: Private Physician; When: 2 - 3 days; Reason: Recheck today's complaints, Continuance of care, Re-evaluation by your physician. - Problem is new. - Symptoms have improved. Signatures: Dispatcher [employer] EDMS Vipul Castillo MD MD cha Bryson, James RN RN jb4 Skye Gore RN RN jl7 Corrections: (The following items were deleted from the chart) 21:19 20:56 02/09/2020 20:56 Discharged to Home. Impression: Cocaine abuse; Malaise and jb4 fatigue. Condition is Stable. Forms are Medication Reconciliation Form, Thank You Letter, Antibiotic Education, Prescription Opioid Use. Follow up: Private Physician; When: 2 - 3 days; Reason: Recheck today's complaints, Continuance of care, Re-evaluation by your physician. Problem is new. Symptoms have improved. martin
[2020-02-10 02:03] VITALS: O2SAT 100
[2020-02-10 02:25] VITALS: BP 146/75
== END 2020-02-09 21:19 | disposition home or self-care (01) ==
LOC: ER 18:16
DX: F14.10 Cocaine abuse, uncomplicated (principal); R53.81 Other malaise; R53.83 Other fatigue; I10 Essential (primary) hypertension; F17.210 Nicotine dependence, cigarettes, uncomplicated; Z21 Asymptomatic human immunodeficiency virus [HIV] infection status; Z85.038 Personal history of other malignant neoplasm of large intestine
CPT/HCPCS: 96361; 93005; 85025; 80048; 36415; 83735; 85610; 80076; 80307 ×8; 81003; 84484; 83690; 83880; 71045; 96375; 96374; 99284; J7030; J2405

== ENCOUNTER 2020-03-21 10:13 | Emergency (ER) | payer OTHER ==
[2020-03-21] MEDS ORDERED: IBUPROFEN 200 MG TAB PO ONE (10:52)
--- NOTE | 2020-03-21 11:09 | RAD REPORT ---
EXAM DESCRIPTION: RAD - Chest Single View - 03/21/2020 11:03 am CLINICAL HISTORY: CHEST PAIN Chest pain. COMPARISON: Chest Single View dated 02/09/2020; Chest Single View dated 02/01/2020; Chest Single Vie w dated 12/14/2019; Chest Single View dated 11/06/2019 FINDINGS: Portable technique limits examination quality. Chronic pleuroparenchymal calcification in the inferior right lung is stable. The lungs are otherwise clear. The heart is normal in size. Tortuous thoracic aorta. IMPRESSION: No acute intrathoracic process suspected.
--- NOTE | 2020-03-21 12:16 | EDPHYS ---
Physician Documentation [facility] Name: Deacon Howe Jr Age: 84 yrs Sex: Male : 1935 Arrival Date: 03/21/2020 Time: 10:18 Bed 8 Private MD: ED Physician Gato Rodriguez HPI: 03/21 10:37 This 84 yrs old Black Male presents to ER via EMS with complaints of Fall Injury, kdr Shoulder Pain. 10:45 The patient has multiple c/o including shoulder pain, bilateral lateral chest pain, kdr chest pain and left knee pain from a fall. Historical: - Allergies: 10:22 NKDA; ss - PMHx: 10:22 Chronic pain; colon cancer; Hepatitis; HIV; Hypertension; ss - PSHx: 10:22 Cholecystectomy; R-hip replacement; right eye; ss - Immunization history:: Adult Immunizations up to date. - Social history:: Smoking status: Patient reports the use of cigarette tobacco products, < 1/2 ppd. ROS: 10:50 Constitutional: Negative for fever, chills, and weight loss, Eyes: Negative for injury, kdr pain, redness, and discharge, Neck: Negative for injury, pain, and swelling, Respiratory: Negative for shortness of breath, cough, wheezing, and pleuritic chest pain, Abdomen/GI: Negative for abdominal pain, nausea, vomiting, diarrhea, and constipation, : Negative for injury, bleeding, discharge, and swelling, Neuro: Negative for headache, weakness, numbness, tingling, and seizure activity. Psych: Negative for depression, anxiety, suicide ideation, homicidal ideation, and hallucinations, Allergy/Immunology: Negative for hives, rash, and allergies, Endocrine: Negative for neck swelling, polydipsia, polyuria, polyphagia, and marked weight changes, Hematologic/Lymphatic: Negative for swollen nodes, abnormal bleeding, and unusual bruising. 10:50 Cardiovascular: Positive for chest pain, of the right lateral anterior chest, left lateral anterior chest, right lateral posterior chest and left lateral posterior chest, Negative for edema, orthopnea, palpitations, paroxysmal nocturnal dyspnea. Exam: 10:50 Constitutional: This is a well developed, well nourished patient who is awake, alert, kdr and in no acute distress. Head/Face: Normocephalic, atraumatic. Eyes: Pupils equal round and reactive to light, extra-ocular motions intact. Lids and lashes normal. Conjunctiva and sclera are non-icteric and not injected. Cornea within normal limits. Periorbital areas with no swelling, redness, or edema. Neck: Trachea midline, no thyromegaly or masses palpated, and no cervical lymphadenopathy. Supple, full range of motion without nuchal rigidity, or vertebral point tenderness. No Meningismus. Chest/axilla: Normal chest wall appearance and motion. Nontender with no deformity. No lesions are appreciated. Cardiovascular: Regular rate and rhythm with a normal S1 and S2. No gallops, murmurs, or rubs. Normal PMI, no JVD. No pulse deficits. Respiratory: Lungs have equal breath sounds bilaterally, clear to auscultation and percussion. No rales, rhonchi or wheezes noted. No increased work of breathing, no retractions or nasal flaring. Abdomen/GI: Soft, non-tender, with normal bowel sounds. No distension or tympany. No guarding or rebound. No evidence of tenderness throughout. Back: No spinal tenderness. No costovertebral tenderness. Full range of motion. 10:50 Skin: injury, abrasion(s), very small abrasion noted, of the left knee. 10:57 ECG was reviewed by the Attending Physician. kdr Vital Signs: 10:19 BP 155 / 85; Pulse 71; Resp 17; Temp 97.8(TE); Pulse Ox 100% on R/A; Weight 72.57 kg; ss Height 6 ft. 2 in. (187.96 cm); Pain 9/10; 11:12 BP 138 / 64; Pulse 84; Resp 18; Pulse Ox 100% on R/A; ph 10:19 Body Mass Index 20.54 (72.57 kg, 187.96 cm) ss MDM: 12:15 Patient medically screened. kdr 12:21 Data reviewed: vital signs, nurses notes, lab test result(s), radiologic studies. kdr Counseling: I had a detailed discussion with the patient and/or guardian regarding: the historical points, exam findings, and any diagnostic results supporting the discharge/admit diagnosis, lab results, radiology results, the need for outpatient follow up. 03/21 10:30 Order name: Troponin (emerg Dept Use Only); Complete Time: 12:13 kdr 03/21 10:30 Order name: CXR XRAY; Complete Time: 11:26 kdr 03/21 10:30 Order name: EKG - Nurse/Tech; Complete Time: 10:42 kdr EC:57 Rate is 67 beats/min. Rhythm is regular, Normal Sinus Rhythm with No ectopy. QRS [place] kdr is Normal. [place] interval is normal. QRS interval is normal. QT interval is normal. Clinical impression: Normal ECG. Administered Medications: 10:42 Drug: Ibuprofen 600 mg Route: PO; ss 12:27 Follow up: Response: No adverse reaction; Pain is decreased ss Disposition: 03/21/20 12:15 Discharged to Home. Impression: Chest pain, unspecified, Weakness, Other chronic pain. - Condition is Stable. - Discharge Instructions: Nonspecific Chest Pain, Chronic Pain, Weakness, Chest Wall Pain, [id number], Nonspecific Chest Pain, [id number]. - Prescriptions for Ibuprofen 600 mg Oral Tablet - take 1 tablet by ORAL route every 6 hours As needed take with food; 30 tablet. - Medication Reconciliation Form, Thank You Letter form. - Follow up: Private Physician; When: 2 - 3 days; Reason: If symptoms return, Further diagnostic work-up, Recheck today's complaints, Continuance of care, Re-evaluation by your physician. - Problem is an acute exacerbation. - Symptoms are resolved. Signatures: Dispatcher [employer] EDMS Gato Rodriguez MD MD [facility] Tea Jo RN RN ss Corrections: (The following items were deleted from the chart) 12:27 12:15 03/21/2020 12:15 Discharged to Home. Impression: Chest pain, unspecified; ss Weakness; Other chronic pain. Condition is Stable. Forms are Medication Reconciliation Form, Thank You Letter, Antibiotic Education, Prescription Opioid Use. Follow up: Private Physician; When: 2 - 3 days; Reason: If symptoms return, Further diagnostic work-up, Recheck today's complaints, Continuance of care, Re-evaluation by your physician. Problem is an acute exacerbation. Symptoms are resolved. kdr
--- NOTE | 2020-03-21 12:16 | ER ---
Nurse's Notes [facility] Name: Deacon Howe Jr Age: 84 yrs Sex: Male : 1935 Arrival Date: 03/21/2020 Time: 10:18 Bed 8 Private MD: Diagnosis: Chest pain, unspecified;Weakness;Other chronic pain Presentation: 03/21 10:19 Chief complaint: Patient states: tripped on a storm drain yesterday causing him to fall. C/o R shoulder pain, neck pain and abrasion to R third finger. Coronavirus screen: Client denies travel out of the [place] in the last 14 days. Ebola Screen: Patient denies exposure to infectious person. Patient denies travel to an Ebola-affected area in the 21 days before illness onset. Initial Sepsis Screen: Does the patient meet any 2 criteria? No. Patient's initial sepsis screen is negative. Does the patient have a suspected source of infection? No. Patient's initial sepsis screen is negative. Risk Assessment: Do you want to hurt yourself or someone else? Patient reports no desire to harm self or others. Onset of symptoms was March 20, 2020. 10:19 Method Of Arrival: EMS: [facility] 10:19 Acuity: ALIN 4 ss Historical: - Allergies: 10:22 NKDA; ss - PMHx: 10:22 Chronic pain; colon cancer; Hepatitis; HIV; Hypertension; ss - PSHx: 10:22 Cholecystectomy; R-hip replacement; right eye; ss - Immunization history:: Adult Immunizations up to date. - Social history:: Smoking status: Patient reports the use of cigarette tobacco products, < 1/2 ppd. Screenin:11 Abuse screen: Denies threats or abuse. Denies injuries from another. Nutritional ph screening: No deficits noted. Tuberculosis screening: No symptoms or risk factors identified. Fall Risk None identified. Assessment: 10:18 General: Appears in no apparent distress. slender, Behavior is cooperative. Pain: ss Complains of pain in R shoulder, R side of neck, "all over" Pain currently is 9 out of 10 on a pain scale. Quality of pain is described as aching, Pain began yesterday after fall Is continuous. Neuro: Level of Consciousness is awake, alert, obeys commands, Oriented to person, place, time, situation. Cardiovascular: Pulses are palpable in right radial artery and left radial artery. Respiratory: Airway is patent Respiratory effort is even, unlabored, Respiratory pattern is regular, symmetrical. GI: No signs and/or symptoms were reported involving the gastrointestinal system. Abdomen is non-distended. : No signs and/or symptoms were reported regarding the genitourinary system. EENT: Oral mucosa is moist. Derm: Skin is healthy with good turgor, Skin is dry, Skin is pink, warm \\T\\ dry. normal. Musculoskeletal: Range of motion: intact in all extremities. Injury Description: Abrasion sustained to R third finger is clean, small approximately dime sized. Not bleeding at this time. 11:11 Reassessment: Patient appears in no apparent distress at this time. Patient and/or ph family updated on plan of care and expected duration. Pain level reassessed. Patient is alert, oriented x 3, equal unlabored respirations, skin warm/dry/pink. Phlebotomy at bedside. 12:00 Reassessment: Patient appears in no apparent distress at this time. Patient and/or ss family updated on plan of care and expected duration. Pain level reassessed. Vital Signs: 10:19 BP 155 / 85; Pulse 71; Resp 17; Temp 97.8(TE); Pulse Ox 100% on R/A; Weight 72.57 kg; ss Height 6 ft. 2 in. (187.96 cm); Pain 9/10; 11:12 BP 138 / 64; Pulse 84; Resp 18; Pulse Ox 100% on R/A; ph 10:19 Body Mass Index 20.54 (72.57 kg, 187.96 cm) ED Course: 10:18 Patient arrived in ED. ss 10:21 Triage completed. ss 10:22 Arm band placed on right wrist. ss 10:23 Gato Rodriguez MD is Attending Physician. kdr 10:31 Tea Jo RN is Primary Nurse. ss 10:42 EKG done, by ED staff, reviewed by Gato Rodriguez MD. dh3 11:03 CXR XRAY In Process Unspecified. EDMS 11:12 Patient has correct armband on for positive identification. Bed in low position. Call ph light in reach. Side rails up X 1. Pulse ox on. NIBP on. 12:00 No provider procedures requiring assistance completed. Patient did not have IV access ss during this emergency room visit. Administered Medications: 10:42 Drug: Ibuprofen 600 mg Route: PO; ss 12:27 Follow up: Response: No adverse reaction; Pain is decreased ss Outcome: 12:15 Discharge ordered by . kdr 12:26 Discharged to home via wheelchair. ss 12:26 Condition: good 12:26 Discharge instructions given to patient, Instructed on discharge instructions, follow up and referral plans. medication usage, Demonstrated understanding of instructions, follow-up care, medications, Prescriptions given X 1. 12:27 Patient left the ED. ss Signatures: Dispatcher [employer] EDMS Gato Rodriguez MD MD kdr Smirch, Shelby, RN RN Callie Hernandez RN RN Paulette Quiroz [facility]
--- NOTE | 2020-03-22 22:35 | EKG ---
Test Date: 2020-03-21 Test Time: 10:39:21 [employer]obile Le[employer] Supervisor: TAYLOR MEASUREMENT RESULTS: Intervals: Rate: 67 [place]: 198 QRSD: 86 QT: 410 QTc: 433 Stacy: P: 74 AZ: 198 QRS: 79 T: 84 INTERPRETIVE STATEMENTS: Normal sinus rhythm Normal ECG Compared to ECG 02/09/2020 20:09:08 No significant changes Electronically Signed On 03-22-20 22:30:01 [employer]ICKEN [employer]UFFER by Rocco Menjivar
== END 2020-03-21 12:27 | disposition home or self-care (01) ==
LOC: ER 10:13
DX: R53.1 Weakness (principal); G89.29 Other chronic pain; M25.562 Pain in left knee; M25.511 Pain in right shoulder; W18.09XA Striking against other object with subsequent fall, initial encounter; Y93.01 Activity, walking, marching and hiking; Y92.9 Unspecified place or not applicable; I10 Essential (primary) hypertension; Z21 Asymptomatic human immunodeficiency virus [HIV] infection status; Z72.0 Tobacco use; Z85.038 Personal history of other malignant neoplasm of large intestine
CPT/HCPCS: 36415; 71045; 84484; 93005; 99284

== ENCOUNTER 2020-05-10 14:20 | Emergency (ER) | payer OTHER ==
[2020-05-10 15:15] LABS: Absolute Lymphocytes (CBC) 1.8 K/uL (0.7-4.9); Basophils % 0.7 % (0-1.3); Hematocrit 39.5 % (39.6-49.0); Lymphocytes % 28.6 % (15.3-44.8); MPV 7.7 fL (7.6-11.3); RBC Red Blood Cell Count 5.02 M/uL (4.33-5.43)
[2020-05-10 15:18] LABS: Protime INR 1.05
[2020-05-10 15:37] LABS: ALT/SGPT 33 U/L (12-78); AST/SGOT 23 U/L (15-37); Alkaline Phosphatase 109 U/L (45-117); BUN Blood Urea Nitrogen 23 mg/dL (7-18); Bicarbonate 25 mmol/L (21-32); Bilirubin Direct 0.1 mg/dL (0-0.2); Bilirubin Total 0.4 mg/dL (0.2-1.0); Glucose Level 88 mg/dL (74-106); Magnesium 2.1 mg/dL (1.8-2.4); NT PRO-BNP 296 pg/mL (<450); Potassium 4.6 mmol/L (3.5-5.1); Protein, Total 6.7 g/dL (6.4-8.2); Sodium Level 139 mmol/L (136-145); Troponin (Emerg Dept Use Only) < 0.02 ng/mL (0.0-0.045)
[2020-05-10 15:48] LABS: Barbiturates NEGATIVE (NEGATIVE); Benzodiazepines NEGATIVE (NEGATIVE); Cocaine POSITIVE (NEGATIVE); METHAMPHETAM NEGATIVE (NEGATIVE); Methadone NEGATIVE (NEGATIVE); Opiates NEGATIVE (NEGATIVE); Phencyclidine NEGATIVE (NEGATIVE); THC Cannibis NEGATIVE (NEGATIVE)
[2020-05-10 15:52] LABS: Urine Blood NEGATIVE (NEG); Urine Glucose NEGATIVE (NEG); Urine Protein NEGATIVE (NEG)
--- NOTE | 2020-05-10 16:40 | RAD REPORT ---
EXAM DESCRIPTION: RAD - Chest Single View - 05/10/2020 4:33 pm CLINICAL HISTORY: fall Chest pain. COMPARISON: Chest Single View dated 03/21/2020; Chest Single View dated 02/09/2020; Chest Single View dated 02/01/2020; Chest Single View dated 12/14/2019 FINDINGS: Portable technique limits examination quality. Chronic pleural and parenchymal opacification in the right lower lung is stable. The lungs are grossl y clear of acute infiltrate. The heart is normal in size. Prominent tortuosity of the thoracic aorta.
--- NOTE | 2020-05-10 16:49 | RAD REPORT ---
EXAM DESCRIPTION: RAD - Lumbar Spine 3 Views - 05/10/2020 4:33 pm CLINICAL HISTORY: fall Radiculopathy COMPARISON: Lumbar Spine 3 Views dated 09/30/2019; LUMBAR SPINE 3 VIEWS dated 11/18/2014; LUMBAR SPINE 3 VIEWS dated 07/01/2007 FINDINGS: Multilevel degenerative spondylosis is seen throughout the lumbar spine. This is predomina tely in the form of disc thinning with posterior osteophyte formation. Mild degenerative dextroscolio sis is present. No acute fracture evident. IMPRESSION: No acute fracture is evident. Moderate diffuse multilevel spondylosis of the lumbar spine.
--- NOTE | 2020-05-10 17:16 | EDPHYS ---
Physician Documentation [facility] Name: Deacon Howe Jr Age: 84 yrs Sex: Male : 1935 Arrival Date: 05/10/2020 Time: 14:29 Bed 7 Private MD: ED Physician Gato Rodriguez HPI: 05/10 14:59 This 84 yrs old Black Male presents to ER via EMS with complaints of Pain All Over. jmm 14:59 Details of fall: The patient fell from an upright position. Onset: The symptoms/episode jmm began/occurred acutely, 1 day(s) ago. Associated injuries: The patient sustained injury to the low back. This is an 84 year old male with ahistory of chronic pain, hepatitis, HIV, HTN that presents to the ED with complaints of lower back pain, generalized pain after a fall which occurred in long-term. Denies head injury. Historical: - Allergies: 14:39 NKDA; jl7 - Home Meds: 14:39 lidocaine patch [Active]; jl7 - PMHx: 14:39 Chronic pain; colon cancer; Hepatitis; HIV; Hypertension; jl7 - PSHx: 14:39 Cholecystectomy; R-hip replacement; right eye; jl7 - Immunization history:: Adult Immunizations unknown. - Social history:: Smoking status: Patient reports the use of cigarette tobacco products, smokes one-half pack cigarettes per day. ROS: 14:59 Constitutional: Negative for fever, chills, and weight loss, Cardiovascular: Negative jmm for chest pain, palpitations, and edema, Respiratory: Negative for shortness of breath, cough, wheezing, and pleuritic chest pain, Abdomen/GI: Negative for abdominal pain, nausea, vomiting, diarrhea, and constipation. 14:59 Back: Positive for pain with movement. 14:59 All other systems are negative. Exam: 14:59 Constitutional: This is a well developed, well nourished patient who is awake, alert, jmm and in no acute distress. Head/Face: atraumatic. Eyes: EOMI, no conjunctival erythema appreciated ENT: Moist Mucus Membranes Neck: Trachea midline, Supple Chest/axilla: Normal chest wall appearance and motion. Cardiovascular: Regular rate and rhythm. No edema appreciated Respiratory: Normal respirations, no respiratory distress appreciated Abdomen/GI: Non distended, soft Back: Normal ROM Skin: General appearance color normal MS/ Extremity: Moves all extremities, no obvious deformities appreciated, no edema noted to the lower extremities Neuro: Awake and alert, normal gait Psych: Behavior is normal, Mood is normal, Patient is cooperative and pleasant Vital Signs: 14:30 Pulse 63; Resp 17; Temp 97.8; Pulse Ox 100% ; Pain 10/10; jl7 14:47 BP 125 / 78; jl7 17:14 Pulse 62; Resp 15; Pulse Ox 100% ; jl7 MDM: 14:56 Patient medically screened. [facility] 17:13 Data reviewed: vital signs, nurses notes. [facility] 17:13 Data reviewed: lab test result(s), EKG. Counseling: I had a detailed discussion with patricia the patient and/or guardian regarding: the historical points, exam findings, and any diagnostic results supporting the discharge/admit diagnosis, radiology results, the need for outpatient follow up, to return to the emergency department if symptoms worsen or persist or if there are any questions or concerns that arise at home. 05/10 14:57 Order name: Basic Metabolic Panel; Complete Time: 15:58 [facility] 05/10 14:57 Order name: CBC with Diff; Complete Time: 15:58 [facility] 05/10 14:57 Order name: LFT's; Complete Time: 15:58 [facility] 05/10 14:57 Order name: Magnesium; Complete Time: 15:58 [facility] 05/10 14:57 Order name: NT PRO-BNP; Complete Time: 15:58 [facility] 05/10 14:57 Order name: PT-INR; Complete Time: 15:58 [facility] 05/10 14:57 Order name: Troponin (emerg Dept Use Only); Complete Time: 15:58 [facility] 05/10 14:57 Order name: XRAY Chest (1 view); Complete Time: 16:42 [facility] 05/10 14:57 Order name: EKG; Complete Time: 14:58 [facility] 05/10 14:57 Order name: Cardiac monitoring; Complete Time: 14:58 [facility] 05/10 14:57 Order name: Lumbar Spine (3 Views) XRAY; Complete Time: 16:49 [facility] 05/10 14:57 Order name: Urine Drug Screen; Complete Time: 15:58 [facility] 05/10 15:44 Order name: Urine Dipstick--Ancillary (enter results) 05/10 15:44 Order name: Urine Dipstick-Ancillary [facility] 05/10 14:57 Order name: EKG - Nurse/Tech; Complete Time: 14:58 [facility] 05/10 14:57 Order name: IV Saline Lock; Complete Time: 15:26 [facility] 05/10 14:57 Order name: Labs collected and sent; Complete Time: 15:26 [facility] 05/10 14:57 Order name: O2 Per Protocol; Complete Time: 14:58 [facility] 05/10 14:57 Order name: O2 Sat Monitoring; Complete Time: 14:58 [facility] Administered Medications: No medications were administered Disposition: 05/10/20 17:15 Discharged to Home. Impression: Strain of muscle, fascia and tendon of lower back, Cocaine abuse. - Condition is Stable. - Discharge Instructions: Back Pain, Adult. - Prescriptions for orphenadrine citrate 100 mg Oral Tablet Sustained Release - take 1 tablet by ORAL route 2 times per day As needed; 20 tablet. - Medication Reconciliation Form, Thank You Letter, Antibiotic Education, Prescription Opioid Use form. - Follow up: Private Physician; When: 2 - 3 days; Reason: Recheck today's complaints, Continuance of care, Re-evaluation by your physician. Addendum: 05/13/2020 06:03 Co-signature as Attending Physician, Gato Rodriguez MD I agree with the assessment and k dr plan of care. Signatures: Dispatcher [employer] [facility] Gato Rodriguez MD MD kdr Mickail, Joel, PA PA [facility] Skye Gore RN RN jl7 Corrections: (The following items were deleted from the chart) 05/10 17:24 17:15 05/10/2020 17:15 Discharged to Home. Impression: Strain of muscle, fascia and jl7 tendon of lower back; Cocaine abuse. Condition is Stable. Forms are Medication Reconciliation Form, Thank You Letter, Antibiotic Education, Prescription Opioid Use. Follow up: Private Physician; When: 2 - 3 days; Reason: Recheck today's complaints, Continuance of care, Re-evaluation by your physician. [facility]
--- NOTE | 2020-05-10 17:16 | ER ---
Nurse's Notes [facility] Name: Deacon Howe Jr Age: 84 yrs Sex: Male : 1935 Arrival Date: 05/10/2020 Time: 14:29 Bed 7 Private MD: Diagnosis: Strain of muscle, fascia and tendon of lower back;Cocaine abuse Presentation: 05/10 14:30 Chief complaint: EMS states: Toned out by pt for pain all over since this morning. jl7 Coronavirus screen: Client denies travel out of the [place] in the last 14 days. At this time, the client does not indicate any symptoms associated with coronavirus-19. Ebola Screen: No symptoms or risks identified at this time. Initial Sepsis Screen: Does the patient meet any 2 criteria? No. Patient's initial sepsis screen is negative. Does the patient have a suspected source of infection? No. Patient's initial sepsis screen is negative. Risk Assessment: Do you want to hurt yourself or someone else? Patient reports no desire to harm self or others. Onset of symptoms was May 10, 2020. Care prior to arrival: None. 14:30 Method Of Arrival: EMS: [facility] 14:30 Acuity: ALIN 4 jl7 Triage Assessment: 14:39 General: Appears in no apparent distress. uncomfortable, Behavior is calm, cooperative. jl7 Pain: Complains of pain in all over Pain currently is 10 out of 10 on a pain scale. Neuro: Level of Consciousness is awake, alert, obeys commands, Oriented to person, place, time, situation. Cardiovascular: Patient's skin is warm and dry. Respiratory: Airway is patent Respiratory effort is even, unlabored, Respiratory pattern is regular, symmetrical. Derm: Skin is dry, Skin is normal, Skin temperature is warm. Historical: - Allergies: 14:39 NKDA; jl7 - Home Meds: 14:39 lidocaine patch [Active]; jl7 - PMHx: 14:39 Chronic pain; colon cancer; Hepatitis; HIV; Hypertension; jl7 - PSHx: 14:39 Cholecystectomy; R-hip replacement; right eye; jl7 - Immunization history:: Adult Immunizations unknown. - Social history:: Smoking status: Patient reports the use of cigarette tobacco products, smokes one-half pack cigarettes per day. Screenin:00 Abuse screen: Denies threats or abuse. Denies injuries from another. Nutritional [facility] screening: No deficits noted. Tuberculosis screening: No symptoms or risk factors identified. Fall Risk IV access (20 points). Total Pedroza Fall Scale indicates No Risk (0-24 pts). Assessment: 15:00 General: See triage assessment. 7 16:00 Reassessment: Patient appears in no apparent distress at this time. No changes from [facility] previously documented assessment. Patient and/or family updated on plan of care and expected duration. Pain level reassessed. Patient is alert, oriented x 3, equal unlabored respirations, skin warm/dry/pink. 17:15 Reassessment: Patient appears in no apparent distress at this time. No changes from [facility] previously documented assessment. Patient and/or family updated on plan of care and expected duration. Pain level reassessed. Patient is alert, oriented x 3, equal unlabored respirations, skin warm/dry/pink. Vital Signs: 14:30 Pulse 63; Resp 17; Temp 97.8; Pulse Ox 100% ; Pain 10/10; jl7 14:47 BP 125 / 78; jl7 17:14 Pulse 62; Resp 15; Pulse Ox 100% ; jl7 ED Course: 14:29 Patient arrived in ED. [facility] 14:33 Jagdish Reed PA is [facility] 14:33 Gato Rodriguez MD is Attending Physician. [facility] 14:39 Triage completed. [facility] 14:39 Arm band placed on right wrist. [facility] 14:47 Skye Gore, RN is Primary Nurse. [facility] 15:00 Patient has correct armband on for positive identification. Bed in low position. Call [facility] light in reach. Side rails up X 1. business development sales executive on. Pulse ox on. NIBP on. Warm blanket given. 15:15 Initial lab(s) drawn, by il, sent to lab. Inserted saline lock: 20 gauge in right jl7 ,using aseptic technique. ram Blood collected. 15:15 EKG done, by ED staff, reviewed by Jagdish SAENZ. [facility] 16:33 XRAY Chest (1 view) In Process Unspecified. EDMS 16:33 Lumbar Spine (3 Views) XRAY In Process Unspecified. EDMS 17:21 No provider procedures requiring assistance completed. IV discontinued, intact, jl7 bleeding controlled, No redness/swelling at site. Pressure dressing applied. Administered Medications: No medications were administered Outcome: 17:15 Discharge ordered by . patricia 17:21 Discharged to home ambulatory. jlBela 17:21 Condition: stable 17:21 Discharge instructions given to patient, Instructed on discharge instructions, follow up and referral plans. medication usage, Demonstrated understanding of instructions, follow-up care, medications, Prescriptions given X 1. 17:24 Patient left the ED. jl7 Signatures: Dispatcher [employer] EDMS Jagdish Reed PA PA jmm Leal, Jahala, RN RN jl7
[2020-05-10 17:35] VITALS: BP 125/78; TEMP 97.8; O2SAT 100
--- NOTE | 2020-05-11 07:55 | EKG ---
Test Date: 2020-05-10 Test Time: 15:32:08 Relocation Commissioner: KATELYN MEASUREMENT RESULTS: Intervals: Rate: 61 LA: 212 QRSD: 76 QT: 376 QTc: 378 [place]: P: 76 LA: 212 QRS: 72 T: 74 INTERPRETIVE STATEMENTS: Sinus rhythm with 1st degree AV block Anteroseptal infarct, age undetermined Abnormal ECG Compared to ECG 03/21/2020 10:39:21 First degree AV block now present Myocardial infarct finding now present Electronically Signed On 05-11-20 07:54:09 ENGINE WATCHMAN by Rocco Menjivar
== END 2020-05-10 17:24 | disposition home or self-care (01) ==
LOC: ER 14:20
DX: S39.012A Strain of muscle, fascia and tendon of lower back, initial encounter (principal); F14.10 Cocaine abuse, uncomplicated; W18.30XA Fall on same level, unspecified, initial encounter; Y93.9 Activity, unspecified; Y92.149 Unspecified place in prison as the place of occurrence of the external cause; Z21 Asymptomatic human immunodeficiency virus [HIV] infection status; Z85.038 Personal history of other malignant neoplasm of large intestine; I10 Essential (primary) hypertension; F17.210 Nicotine dependence, cigarettes, uncomplicated
CPT/HCPCS: 36415; 71045; 72100; 80048; 80076; 80307; 81003; 83735; 83880; 84484; 85025; 85610; 93005; 99284

== ENCOUNTER 2020-05-18 14:41 | Emergency (ER) | payer OTHER ==
--- NOTE | 2020-05-18 16:16 | RAD REPORT ---
EXAM DESCRIPTION: RAD - Chest Single View - 05/18/2020 4:09 pm CLINICAL HISTORY: CHEST PAIN COMPARISON: Single-view chest May 10 TECHNIQUE: AP portable chest image was obtained 05/18/2020 4:09 pm . FINDINGS: Right base chronic pleural and parenchymal opacification unchanged from prior imaging. Lef t lung field is clear of acute finding. Focal scarring in the lateral mid left lung field has not martin nged. Upper right lung field is clear of acute disease. Heart and vasculature are normal. No measurable pleural effusion and no pneumothorax. No acute bony abnormality seen. No acute aortic findings suspected. IMPRESSION: Chronic pleural and parenchymal changes are present. No acute cardiopulmonary finding se en.
[2020-05-18 16:54] LABS: Absolute Lymphocytes (CBC) 1.4 K/uL (0.7-4.9); Basophils % 0.6 % (0-1.3); Hematocrit 42.7 % (39.6-49.0); Lymphocytes % 23.6 % (15.3-44.8); MPV 8.1 fL (7.6-11.3); RBC Red Blood Cell Count 5.36 M/uL (4.33-5.43)
[2020-05-18 16:59] LABS: Protime INR 0.97
[2020-05-18 17:06] LABS: Barbiturates NEGATIVE (NEGATIVE); Benzodiazepines NEGATIVE (NEGATIVE); Cocaine POSITIVE (NEGATIVE); METHAMPHETAM NEGATIVE (NEGATIVE); Methadone NEGATIVE (NEGATIVE); Opiates NEGATIVE (NEGATIVE); Phencyclidine NEGATIVE (NEGATIVE); THC Cannibis NEGATIVE (NEGATIVE)
[2020-05-18 17:08] LABS: ALT/SGPT 32 U/L (12-78); AST/SGOT 24 U/L (15-37); Albumin 3.4 g/dL (3.4-5.0); Alkaline Phosphatase 90 U/L (45-117); BUN Blood Urea Nitrogen 20 mg/dL (7-18); Bicarbonate 24 mmol/L (21-32); Bilirubin Direct 0.2 mg/dL (0-0.2); Bilirubin Total 0.8 mg/dL (0.2-1.0); Glucose Level 92 mg/dL (74-106); NT PRO-BNP 228 pg/mL (<450); Potassium 4.1 mmol/L (3.5-5.1); Protein, Total 7.4 g/dL (6.4-8.2); Sodium Level 137 mmol/L (136-145); Troponin (Emerg Dept Use Only) < 0.02 ng/mL (0.0-0.045)
--- NOTE | 2020-05-18 17:42 | ER ---
Nurse's Notes [facility] Name: Deacon Howe Jr Age: 84 yrs Sex: Male : 1935 Arrival Date: 05/18/2020 Time: 14:43 Bed 20 Private MD: Diagnosis: Other chronic pain;Cocaine abuse Presentation: 05/18 14:43 Chief complaint: EMS states: pt c/o pain all over since this morning. Coronavirus iw screen: At this time, the client does not indicate any symptoms associated with coronavirus-19. Ebola Screen: Patient negative for fever greater than or equal to 101.5 degrees Fahrenheit, and additional compatible Ebola Virus Disease symptoms Patient denies exposure to infectious person. Patient denies travel to an Ebola-affected area in the 21 days before illness onset. No symptoms or risks identified at this time. Initial Sepsis Screen: Does the patient meet any 2 criteria? No. Patient's initial sepsis screen is negative. Does the patient have a suspected source of infection? No. Patient's initial sepsis screen is negative. Risk Assessment: Do you want to hurt yourself or someone else? Patient reports no desire to harm self or others. Onset of symptoms was May 18, 2020. Care prior to arrival: Glucose check: 107. 14:43 Method Of Arrival: EMS: [facility] iw 14:43 Acuity: ALIN 3 iw Historical: - Allergies: 14:44 NKDA; iw - PMHx: 14:44 Chronic pain; colon cancer; Hepatitis; HIV; Hypertension; iw - PSHx: 14:44 Cholecystectomy; R-hip replacement; right eye; iw - Immunization history:: Pneumococcal vaccine is up to date, Flu vaccine is up to date. - Social history:: Smoking status: Patient reports the use of cigarette tobacco products, smokes one-half pack cigarettes per day. Screenin:00 Abuse screen: Denies threats or abuse. Nutritional screening: No deficits noted. rb3 Tuberculosis screening: No symptoms or risk factors identified. Fall Risk No fall in past 12 months (0 pts). Secondary diagnosis (15 points) impaired mobility, No IV (0 pts). Ambulatory Aid- Crutches/Cane/Walker (15 pts). Gait- Impaired (20 pts.). Mental Status- Oriented to own ability (0 pts). Total Pedroza Fall Scale indicates High Risk Score (45 or more points). Fall prevention measures have been instituted. Side Rails Up X 2 Placed Close to Nursing Station 1:1 Attendant Assigned Frequent Obs/Assessments Occuring As available patient and family educated on Fall Prevention Program and Strategies. Assessment: 15:00 General: Appears in no apparent distress. comfortable, Behavior is calm, cooperative. rb3 Pain: Complains of pain in all over. Neuro: Level of Consciousness is awake, alert, obeys commands, Oriented to person, place, time, situation. Cardiovascular: Capillary refill < 3 seconds. Respiratory: Airway is patent Respiratory effort is even, unlabored, Respiratory pattern is regular, symmetrical. GI: No signs and/or symptoms were reported involving the gastrointestinal system. : No signs and/or symptoms were reported regarding the genitourinary system. 16:00 Reassessment: Patient appears in no apparent distress at this time. No changes from rb3 previously documented assessment. 16:32 Reassessment: Gave the pt. a sandwich, soda, and some crackers. rb3 17:00 Reassessment: Patient appears in no apparent distress at this time. Patient and/or rb3 family updated on plan of care and expected duration. Pain level reassessed. Patient is alert, oriented x 3, equal unlabored respirations, skin warm/dry/pink. 18:00 Reassessment: Patient appears in no apparent distress at this time. No changes from rb3 previously documented assessment. 18:34 Reassessment: Patient appears in no apparent distress at this time. Patient and/or rb3 family updated on plan of care and expected duration. Pain level reassessed. Patient is alert, oriented x 3, equal unlabored respirations, skin warm/dry/pink. Vital Signs: 14:54 BP 127 / 57; Pulse 86; Resp 16; Temp 98.9; Pulse Ox 98% on R/A; Weight 74.84 kg; Height iw 6 ft. 2 in. (187.96 cm); Pain 9/10; 16:30 BP 142 / 93; Pulse 96; Resp 19; Pulse Ox 99% ; rb3 17:26 BP 133 / 90; Pulse 87; Resp 18; Pulse Ox 100% ; rb3 14:54 Body Mass Index 21.18 (74.84 kg, 187.96 cm) ED Course: 14:43 Patient arrived in ED. iw 14:43 Triage completed. iw 14:55 Arm band placed on. iw 15:00 Patient has correct armband on for positive identification. Bed in low position. Call rb3 light in reach. Side rails up X 1. Pulse ox on. NIBP on. 15:01 Lisa Marina, RN is Primary Nurse. rb3 15:03 Dhruv Richard NP is PHCP. pm1 15:03 Vipul Castillo MD is Attending Physician. pm1 16:09 XRAY Chest (1 view) In Process Unspecified. EDMS 19:07 No provider procedures requiring assistance completed. Patient did not have IV access rb3 during this emergency room visit. Administered Medications: 19:00 Drug: Zofran (Ondansetron) 4 mg Route: PO; rb3 19:01 Follow up: Response: Medication administered at discharge. rb3 Outcome: 17:41 Discharge ordered by . pm1 19:07 Discharged to home via wheelchair. rb3 19:07 Condition: stable 19:07 Discharge instructions given to patient, Instructed on discharge instructions, follow up and referral plans. Demonstrated understanding of instructions, follow-up care, Prescriptions given X none 19:08 Patient left the ED. rb3 Signatures: Dispatcher [employer] EDMS Sapphire Benitez RN RN Dhruv Richard NP TRANSPORT TECHNICIAN pm1 Lisa Marina, MARYANNE RN rb3 Corrections: (The following items were deleted from the chart) 14:55 14:43 Chief complaint: EMS states: pt c/o pain all over iw iw
--- NOTE | 2020-05-18 17:42 | EDPHYS ---
Physician Documentation [facility] Name: Deacon Howe Jr Age: 84 yrs Sex: Male : 1935 Arrival Date: 05/18/2020 Time: 14:43 Bed 20 Private MD: ED Physician Vipul Castillo HPI: 05/18 15:26 This 84 yrs old Black Male presents to ER via EMS with complaints of Pain All Over. pm1 15:26 The patient or guardian reports chest pain that is located primarily in the chest pm1 diffusely, lower back and all over. Onset: this morning. The pain does not radiate. Associated signs and symptoms: The patient has no apparent associated signs or symptoms. Duration: The patient or guardian reports a single episode, that is still ongoing, chronically. Modifying factors: The symptoms are alleviated by nothing. the symptoms are aggravated by nothing. Severity of pain: in the emergency department the pain is unchanged. The patient has experienced similar episodes in the past, chronically. It is unknown whether or not the patient has recently seen a physician. Historical: - Allergies: 14:44 NKDA; iw - PMHx: 14:44 Chronic pain; colon cancer; Hepatitis; HIV; Hypertension; iw - PSHx: 14:44 Cholecystectomy; R-hip replacement; right eye; iw - Immunization history:: Pneumococcal vaccine is up to date, Flu vaccine is up to date. - Social history:: Smoking status: Patient reports the use of cigarette tobacco products, smokes one-half pack cigarettes per day. ROS: 15:26 Constitutional: Negative for fever, chills, and weight loss, Neck: Negative for injury, pm1 pain, and swelling. 15:26 Respiratory: Negative for shortness of breath, cough, wheezing, and pleuritic chest pain, Abdomen/GI: Negative for abdominal pain, nausea, vomiting, diarrhea, and constipation, MS/Extremity: Negative for injury and deformity, Skin: Negative for injury, rash, and discoloration, Neuro: Negative for headache, weakness, numbness, tingling, and seizure. 15:26 Cardiovascular: Positive for chest pain, Negative for edema, orthopnea, palpitations. 15:26 Back: Positive for pain at rest, of the low back area. Exam: 15:26 Constitutional: This is a well developed, well nourished patient who is awake, alert, pm1 and in no acute distress. Head/Face: Normocephalic, atraumatic. Chest/axilla: Normal chest wall appearance and motion. Nontender with no deformity. No lesions are appreciated. 15:26 Back: No spinal tenderness. No costovertebral tenderness. Full range of motion. Skin: Warm, dry with normal turgor. Normal color with no rashes, no lesions, and no evidence of cellulitis. MS/ Extremity: Pulses equal, no cyanosis. Neurovascular intact. Full, normal range of motion. 15:26 Cardiovascular: Exam negative for acute changes, Rate: normal, Rhythm: regular, Pulses: no pulse deficits are appreciated, Edema: is not appreciated. 15:26 Respiratory: Exam negative for acute changes, respiratory distress, shortness of breath. 15:26 Abdomen/GI: Exam negative for acute changes, Inspection: abdomen appears normal, Palpation: abdomen is soft and non-tender, in all quadrants. 15:26 Neuro: Exam negative for acute changes, Orientation: is normal, Mentation: is normal, Motor: is normal, moves all fours. Vital Signs: 14:54 BP 127 / 57; Pulse 86; Resp 16; Temp 98.9; Pulse Ox 98% on R/A; Weight 74.84 kg; Height iw 6 ft. 2 in. (187.96 cm); Pain 9/10; 16:30 BP 142 / 93; Pulse 96; Resp 19; Pulse Ox 99% ; rb3 17:26 BP 133 / 90; Pulse 87; Resp 18; Pulse Ox 100% ; rb3 14:54 Body Mass Index 21.18 (74.84 kg, 187.96 cm) iw MDM: 15:07 Patient medically screened. martin 17:39 Data reviewed: vital signs. Data interpreted: Pulse oximetry: on room air is 98 %. pm1 Interpretation: normal. 17:40 Counseling: I had a detailed discussion with the patient and/or guardian regarding: the pm1 historical points, exam findings, and any diagnostic results supporting the discharge/admit diagnosis, lab results, radiology results, the need for outpatient follow up, to return to the emergency department if symptoms worsen or persist or if there are any questions or concerns that arise at home. 05/18 15:17 Order name: Basic Metabolic Panel pm1 05/18 15:17 Order name: CBC with Diff pm1 05/18 15:17 Order name: LFT's pm1 05/18 15:17 Order name: Magnesium pm1 05/18 15:17 Order name: NT PRO-BNP; Complete Time: 17:17 pm1 05/18 15:17 Order name: PT-INR; Complete Time: 17:41 pm1 05/18 15:17 Order name: Troponin (emerg Dept Use Only); Complete Time: 17:17 pm1 05/18 15:17 Order name: XRAY Chest (1 view); Complete Time: 16:24 pm1 05/18 15:17 Order name: UDS; Complete Time: 17:17 pm1 05/18 15:18 Order name: Basic Metabolic Panel; Complete Time: 17:17 EDMS 05/18 15:18 Order name: CBC with Automated Diff; Complete Time: 17:17 EDMS 05/18 15:19 Order name: Liver (Hepatic) Function; Complete Time: 17:17 EDMS 05/18 15:19 Order name: Magnesium; Complete Time: 17:17 EDMS 05/18 15:51 Order name: Urine Dipstick--Ancillary (enter results) eb 05/18 15:17 Order name: EKG; Complete Time: 15:19 pm1 05/18 15:17 Order name: Cardiac monitoring pm1 05/18 15:17 Order name: EKG - Nurse/Tech pm1 05/18 15:17 Order name: O2 Per Protocol; Complete Time: 17:03 pm1 05/18 15:17 Order name: O2 Sat Monitoring; Complete Time: 17:03 pm1 05/18 15:17 Order name: Urine Dipstick-Ancillary (obtain specimen) pm1 Administered Medications: 19:00 Drug: Zofran (Ondansetron) 4 mg Route: PO; rb3 19:01 Follow up: Response: Medication administered at discharge. rb3 Disposition: 05/19 09:06 Co-signature as Attending Physician, Vipul Castillo MD I agree with the assessment and martin plan of care. Disposition: 05/18/20 17:41 Discharged to Home. Impression: Other chronic pain, Cocaine abuse. - Condition is Stable. - Discharge Instructions: Chronic Pain, Stimulant Use Disorder-Cocaine. - Medication Reconciliation Form, Thank You Letter, Antibiotic Education, Prescription Opioid Use form. - Follow up: Emergency Department; When: As needed; Reason: Worsening of condition. Follow up: Private Physician; When: 2 - 3 days; Reason: Recheck today's complaints, Continuance of care, Re-evaluation by your physician. - Problem is new. - Symptoms have improved. Signatures: Dispatcher [employer] EDMS Vipul Castillo MD MD cha Williams, Irene, RN RN Dhruv Rodriguez, SECURITY PATROL DRIVER SECURITY PATROL DRIVER pm1 Lisa Marina, RN RN rb3 Corrections: (The following items were deleted from the chart) 05/18 19:08 17:41 05/18/2020 17:41 Discharged to Home. Impression: Other chronic pain; Cocaine rb3 abuse. Condition is Stable. Forms are Medication Reconciliation Form, Thank You Letter, Antibiotic Education, Prescription Opioid Use. Follow up: Emergency Department; When: As needed; Reason: Worsening of condition. Follow up: Private Physician; When: 2 - 3 days; Reason: Recheck today's complaints, Continuance of care, Re-evaluation by your physician. Problem is new. Symptoms have improved. pm1
[2020-05-18] MEDS ORDERED: ONDANSETRON 4 MG (ODT) TAB ONE (19:14)
[2020-05-18 19:19] VITALS: TEMP 98.9
[2020-05-18 19:22] VITALS: BP 133/90; O2SAT 100
[2020-05-18 20:03] LABS: Urine Blood NEGATIVE (NEG); Urine Glucose NEGATIVE (NEG); Urine Protein NEGATIVE (NEG); Urine pH 5.5 (5.0-7.0)
== END 2020-05-18 19:08 | disposition home or self-care (01) ==
LOC: ER 14:41
DX: G89.29 Other chronic pain (principal); F14.10 Cocaine abuse, uncomplicated; I10 Essential (primary) hypertension; Z21 Asymptomatic human immunodeficiency virus [HIV] infection status; F17.210 Nicotine dependence, cigarettes, uncomplicated; Z85.038 Personal history of other malignant neoplasm of large intestine
CPT/HCPCS: 36415; 71045; 80048; 80076; 80307; 81003; 83735; 83880; 84484; 85025; 85610; 99284

== ENCOUNTER 2020-06-06 18:13 | Emergency (ER) | payer OTHER ==
[2020-06-06 19:18] LABS: Urine Blood NEGATIVE (Negative); Urine Glucose NEGATIVE (Negative); Urine Protein NEGATIVE (NEG); Urine Specific Gravity 1.015 (1.005-1.030)
[2020-06-06 19:32] LABS: Protime INR 1.05
[2020-06-06 19:33] LABS: Absolute Lymphocytes (CBC) 1.5 K/uL (0.7-4.9); Basophils % 0.9 % (0-1.3); Hematocrit 39.6 % (39.6-49.0); MPV 7.9 fL (7.6-11.3); RBC Red Blood Cell Count 4.94 M/uL (4.33-5.43)
--- NOTE | 2020-06-06 19:49 | RAD REPORT ---
EXAM DESCRIPTION: RAD - Chest Single View - 06/06/2020 6:51 pm CLINICAL HISTORY: general weakness, shortness of breath, hypertension COMPARISON: Portable May 18 TECHNIQUE: AP portable chest image was obtained 06/06/2020 6:51 pm . FINDINGS: Left lung field is clear. Interstitial pattern has not changed. Chronic pleural and parenc hymal changes in the lower right lung field also stable. Upper right lung field is clear of acute fin ding. Heart and vasculature are normal. No measurable pleural effusion and no pneumothorax. No acute bony abnormality seen. No acute aortic findings suspected. IMPRESSION: No acute cardiopulmonary process. Chronic right-sided chest findings stable from May 18.
[2020-06-06 20:13] LABS: ALT/SGPT 26 U/L (12-78); AST/SGOT 21 U/L (15-37); Albumin 2.9 g/dL (3.4-5.0); Alkaline Phosphatase 75 U/L (45-117); BUN Blood Urea Nitrogen 17 mg/dL (7-18); Bicarbonate 24 mmol/L (21-32); Bilirubin Direct 0.2 mg/dL (0-0.2); Bilirubin Total 0.5 mg/dL (0.2-1.0); Glucose Level 93 mg/dL (74-106); NT PRO-BNP 306 pg/mL (<450); Potassium 4.3 mmol/L (3.5-5.1); Protein, Total 6.6 g/dL (6.4-8.2); Sodium Level 137 mmol/L (136-145); Troponin (Emerg Dept Use Only) < 0.02 ng/mL (0.0-0.045)
[2020-06-06] MEDS ORDERED: FENTANYL CITR 100 MCG/2 ML ONE (20:27)
--- NOTE | 2020-06-06 20:55 | RAD REPORT ---
EXAM DESCRIPTION: CT - Head Brain Wo Cont - 06/06/2020 8:17 pm CLINICAL HISTORY: WEAKNESS COMPARISON: HEAD BRAIN W O CONTRAST dated 10/09/2014 TECHNIQUE: Axial 5 mm thick images of the head were obtained without IV contrast. All CT scans are performed using dose optimization technique as appropriate and may include automated exposure control or mA/KV adjustment according to patient size. FINDINGS: No intracranial hemorrhage, mass, edema or shift of mid-line structures. No acute infarcti on changes seen. No cortical edema or sulcal effacement. Advanced chronic ischemic changes are presen t along with advanced atrophy. Ventricles are in proportion to volume loss. Arterial calcifications a re present. Mastoid air cells are clear. Air-fluid level present in the right maxillary sinus. No acute bony findings. IMPRESSION: Prominent atrophy and chronic ischemic change similar to comparison. No acute intracrani al finding. Chronic ischemic changes can mask nonhemorrhagic acute infarction. MR brain followup can be obtained if there is ongoing concern for acute ischemia. Right maxillary sinusitis.
[2020-06-06 21:06] LABS: Urine Bacteria <20 /HPF (NONE SEEN); Urine RBC NONE SEEN /HPF (NONE SEEN)
[2020-06-06 22:20] LABS: Barbiturates NEGATIVE (NEGATIVE); Benzodiazepines NEGATIVE (NEGATIVE); Cocaine POSITIVE (NEGATIVE); METHAMPHETAM NEGATIVE (NEGATIVE); Methadone NEGATIVE (NEGATIVE); Opiates NEGATIVE (NEGATIVE); Phencyclidine NEGATIVE (NEGATIVE); THC Cannibis NEGATIVE (NEGATIVE)
--- NOTE | 2020-06-06 23:58 | ER ---
Nurse's Notes [facility] Name: Deacon Howe Jr Age: 84 yrs Sex: Male : 1935 Arrival Date: 06/06/2020 Time: 18:22 Bed 24 Private MD: Diagnosis: Weakness;Cocaine abuse;Low back pain Presentation: 06/06 18:22 Chief complaint: EMS states: Patient coming in for complain of generalized weakness. no zb pain at this time. Coronavirus screen: At this time, the client does not indicate any symptoms associated with coronavirus-19. Ebola Screen: No symptoms or risks identified at this time. Initial Sepsis Screen: Does the patient meet any 2 criteria? No. Patient's initial sepsis screen is negative. Does the patient have a suspected source of infection? No. Patient's initial sepsis screen is negative. Risk Assessment: Do you want to hurt yourself or someone else? Patient reports no desire to harm self or others. Onset of symptoms was June 06, 2020. 18:22 Acuity: ALIN 3 zb 18:22 Method Of Arrival: EMS: [facility] zb Triage Assessment: 18:25 General: Appears in no apparent distress. comfortable, Behavior is cooperative. Pain: zb Denies pain. Neuro: Level of Consciousness is awake, alert, obeys commands, Oriented to person, place, time, situation. Neuro: Reports weakness. Cardiovascular: Patient's skin is warm and dry. Respiratory: Airway is patent Respiratory effort is even, unlabored, Respiratory pattern is regular, symmetrical. Derm: Skin is intact, is healthy with good turgor, Skin is dry, Skin is normal. Musculoskeletal: Range of motion: intact in all extremities. Historical: - Allergies: 18:25 NKDA; zb - Home Meds: 18:25 lidocaine patch [Active]; Ibuprofen elixer Oral [Active]; zb - PMHx: 18:25 Chronic pain; colon cancer; Hepatitis; HIV; Hypertension; zb - PSHx: 18:25 Cholecystectomy; right eye; R-hip replacement; zb - Immunization history:: Adult Immunizations unknown. - Social history:: Smoking status: Patient reports the use of cigarette tobacco products, unknown amount. Screenin:30 Abuse screen: Denies threats or abuse. Denies injuries from another. Nutritional zb screening: No deficits noted. Tuberculosis screening: No symptoms or risk factors identified. Fall Risk None identified. Assessment: 21:00 General: Appears in no apparent distress. comfortable, Behavior is calm, cooperative. iw Pain: Complains of pain in all over body. Neuro: Level of Consciousness is awake, alert, obeys commands, Oriented to person, place, time, situation, Moves all extremities. Full function. Cardiovascular: Patient's skin is warm and dry. Respiratory: Respiratory effort is even, unlabored, Respiratory pattern is regular, symmetrical. GI: Abdomen is non-distended. Derm: Skin is intact, is fragile, is thin, with poor turgor. Musculoskeletal: Range of motion: intact in all extremities. 21:40 Reassessment: Patient appears in no apparent distress at this time. Patient and/or iw family updated on plan of care and expected duration. Pain level reassessed. Patient is alert, oriented x 3, equal unlabored respirations, skin warm/dry/pink. pt up to bathroom. ambulates without assistance. pt requests two more apple juices. 22:12 Reassessment: Patient appears in no apparent distress at this time. Patient and/or iw family updated on plan of care and expected duration. Pain level reassessed. pt lying in bed, respirations even and unlabored. 23:19 Reassessment: Patient appears in no apparent distress at this time. pt appears to be iw sleeping, respirations even and unlabored, awakens easily to verbal stimuli, repeat troponin sent to lab. 06/07 00:08 Reassessment: pt appears to be sleeping, arouses, easily, A\T\O x 3, resp unlabored, pt bb verbalized understanding of and agrees to plan of care discharge instructions given. Vital Signs: 06/06 18:44 BP 140 / 78; Pulse 74; Resp 16; Temp 98.5; Pulse Ox 99% on R/A; Weight 79.38 kg; Height zb 6 ft. 2 in. (187.96 cm); Pain 0/10; 20:30 BP 130 / 71; Pulse 78; Resp 16; Pulse Ox 100% on R/A; iw 21:30 BP 134 / 78; Pulse 80; Resp 16; Pulse Ox 100% on R/A; iw 23:24 BP 139 / 73; Pulse 75; Resp 16; Temp 98.6(O); Pulse Ox 99% on R/A; iw 18:44 Body Mass Index 22.47 (79.38 kg, 187.96 cm) zb ED Course: 18:22 Patient arrived in ED. zb 18:23 Triage completed. zb 18:26 Vipul Kuhn PA is PHCP. cp 18:26 Gato Rodriguez MD is Attending Physician. cp 18:36 Estrella Orozco RN is Primary Nurse. zb 18:51 XRAY Chest (1 view) In Process Unspecified. EDMS 19:17 Patient has correct armband on for positive identification. Placed in gown. Bed in low zb position. Call light in reach. Side rails up X 1. equipment monitor phototypesetting on. Pulse ox on. NIBP on. Door closed. Noise minimized. Warm blanket given. PO fluids given. Ice pack to injury. 19:17 No provider procedures requiring assistance completed. Inserted saline lock: 20 gauge zb in right ,using aseptic technique. RLL Blood collected. 19:24 Tracey Vera MD is Attending Physician. cp 20:17 CT Head Brain wo Cont In Process Unspecified. EDMS 22:15 Primary Nurse role handed off by Estrella Orozco RN iw 22:15 Sapphire Benitez RN is Primary Nurse. iw 23:19 Troponin (Emerg Dept Use Only) Sent. iw 23:19 Repeat lab(s) drawn. by va, sent to lab. iw 06/07 00:09 IV discontinued, intact, bleeding controlled, No redness/swelling at site. Pressure bb dressing applied. Administered Medications: 06/06 20:12 Drug: fentaNYL (PF) 25 mcg {Note: RASS 0.} Route: IVP; Site: Other; zb 23:26 Follow up: Response: No adverse reaction; Pain is decreased iw Outcome: 23:57 Discharge ordered by . cp 06/07 00:10 Discharged to home via wheelchair. bb Condition: stable Discharge instructions given to patient, Instructed on discharge instructions, follow up and referral plans. medication usage, Demonstrated understanding of instructions, follow-up care, medications, Prescriptions given X 1. 00:11 Patient left the ED. bb Signatures: Dispatcher [employer] EDMS Marely Dowell RN RN bb Sapphire Benitez RN Vipul Willett PA PA cp Brown, Zipporah, RN RN zb Corrections: (The following items were deleted from the chart) 06/06 20:13 20:12 fentaNYL (PF) 25 mcg IVP in Other zb zb
--- NOTE | 2020-06-06 23:58 | EDPHYS ---
Physician Documentation [facility] Name: Deacon Howe Jr Age: 84 yrs Sex: Male : 1935 Arrival Date: 06/06/2020 Time: 18:22 Bed 24 Private MD: ED Physician Tracey Vera HPI: 06/06 18:35 This 84 yrs old Black Male presents to ER via EMS with complaints of General Weakness. cp 18:35 Onset: The symptoms/episode began/occurred today. cp 18:35 Associated signs and symptoms: Pertinent positives: mid back pain, Pertinent negatives: cp abdominal pain, chest pain, cough, diarrhea, fever, headache, vomiting, wheezing. Historical: - Allergies: 18:25 NKDA; zb - Home Meds: 18:25 lidocaine patch [Active]; Ibuprofen elixer Oral [Active]; zb - PMHx: 18:25 Chronic pain; colon cancer; Hepatitis; HIV; Hypertension; zb - PSHx: 18:25 Cholecystectomy; right eye; R-hip replacement; zb - Immunization history:: Adult Immunizations unknown. - Social history:: Smoking status: Patient reports the use of cigarette tobacco products, unknown amount. ROS: 18:40 Constitutional: Negative for body aches, chills, fever, poor PO intake. cp 18:40 Cardiovascular: Negative for chest pain, edema, palpitations. cp 18:40 Respiratory: Negative for cough, shortness of breath, wheezing. 18:40 Abdomen/GI: Negative for abdominal pain, nausea, vomiting, and diarrhea, black/tarry stool, rectal bleeding. 18:40 Neuro: Positive for weakness, Negative for altered mental status, dizziness, headache, syncope. Exam: 18:45 Constitutional: The patient appears in no acute distress, alert, awake, cp non-diaphoretic, non-toxic, well developed, frail. 18:45 Head/Face: Normocephalic, atraumatic. cp 18:45 Eyes: Periorbital structures: appear normal, Conjunctiva: normal, no exudate, no injection, Sclera: no appreciated abnormality, Lids and lashes: appear normal, bilaterally. 18:45 ENT: External ear(s): are unremarkable, Nose: is normal, Mouth: Lips: dry, Oral mucosa: moist, Posterior pharynx: Airway: no evidence of obstruction, patent. 18:45 Neck: ROM/movement: is normal, is supple, without pain, no range of motions limitations. 18:45 Chest/axilla: Inspection: normal, Palpation: is normal, no crepitus, no tenderness. 18:45 Cardiovascular: Rate: normal, Rhythm: regular, Edema: is not appreciated, JVD: is not appreciated. 18:45 Respiratory: the patient does not display signs of respiratory distress, Respirations: normal, no use of accessory muscles, no retractions, labored breathing, is not present, Breath sounds: are clear throughout, no decreased breath sounds. 18:45 Abdomen/GI: Inspection: abdomen appears normal, Palpation: abdomen is soft and non-tender, in all quadrants. 18:45 Back: pain, that is moderate, of the right mid back and right low back, ROM is painful, with all movement. 18:45 Skin: cellulitis, is not appreciated, no rash present. 18:45 Neuro: Orientation: to person, place \T\ time. Mentation: is normal, Motor: moves all fours, strength is normal, Sensation: is normal. 19:00 ECG was reviewed by the Attending Physician. Vital Signs: 18:44 BP 140 / 78; Pulse 74; Resp 16; Temp 98.5; Pulse Ox 99% on R/A; Weight 79.38 kg; Height zb 6 ft. 2 in. (187.96 cm); Pain 0/10; 20:30 BP 130 / 71; Pulse 78; Resp 16; Pulse Ox 100% on R/A; iw 21:30 BP 134 / 78; Pulse 80; Resp 16; Pulse Ox 100% on R/A; iw 23:24 BP 139 / 73; Pulse 75; Resp 16; Temp 98.6(O); Pulse Ox 99% on R/A; iw 18:44 Body Mass Index 22.47 (79.38 kg, 187.96 cm) zb MDM: 18:39 Patient medically screened. cp 19:00 Differential diagnosis: pneumonia UTI, acute [place]. cp 23:55 Data reviewed: vital signs, nurses notes, lab test result(s), EKG, radiologic studies, cp CT scan, plain films. 23:55 Test interpretation: by ED physician or midlevel provider: ECG, plain radiologic cp studies. Counseling: I had a detailed discussion with the patient and/or guardian regarding: the historical points, exam findings, and any diagnostic results supporting the discharge/admit diagnosis, lab results, radiology results, to return to the emergency department if symptoms worsen or persist or if there are any questions or concerns that arise at home. Response to treatment: the patient's symptoms have markedly improved after treatment. 06/06 18:28 Order name: Basic Metabolic Panel cp 06/06 18:28 Order name: CBC with Diff cp 06/06 18:28 Order name: LFT's cp 06/06 18:28 Order name: Magnesium cp 06/06 18:28 Order name: NT PRO-BNP; Complete Time: 21:12 cp 06/06 18:28 Order name: PT-INR; Complete Time: 19:57 cp 06/06 18:28 Order name: Troponin (emerg Dept Use Only); Complete Time: 21:12 cp 06/06 18:28 Order name: UDS cp 06/06 18:28 Order name: Basic Metabolic Panel; Complete Time: 21:12 EDMS 06/06 22:15 Interpretation: Normal except: GFR 78. cp 06/06 18:28 Order name: CBC with Automated Diff; Complete Time: 19:57 EDMS 06/06 19:57 Interpretation: Normal except: HGB 12.9; MCH 26.1; RDW 17.0. cp 06/06 18:28 Order name: Liver (Hepatic) Function; Complete Time: 21:12 EDMS 06/06 18:28 Order name: Magnesium; Complete Time: 21:12 EDMS 06/06 19:04 Order name: Urine Dipstick--Ancillary (enter results) tt3 06/06 19:04 Order name: Urine Dipstick-Ancillary; Complete Time: 19:50 EDMS 06/06 18:28 Order name: XRAY Chest (1 view); Complete Time: 19:50 cp 06/06 18:28 Order name: EKG; Complete Time: 18:28 cp 06/06 18:28 Order name: Cardiac monitoring; Complete Time: 18:55 cp 06/06 18:28 Order name: EKG - Nurse/Tech; Complete Time: 18:55 cp 06/06 18:28 Order name: IV Saline Lock; Complete Time: 18:55 cp 06/06 18:28 Order name: Labs collected and sent; Complete Time: 19:17 cp 06/06 18:28 Order name: O2 Per Protocol; Complete Time: 18:36 cp 06/06 18:28 Order name: O2 Sat Monitoring; Complete Time: 18:36 cp 06/06 18:28 Order name: Urine Dipstick-Ancillary (obtain specimen); Complete Time: 18:55 cp 06/06 19:58 Order name: CT Head Brain wo Cont; Complete Time: 21:12 cp 06/06 21:13 Interpretation: Report reviewed. cp 06/06 20:07 Order name: Urine Microscopic Only cp 06/06 20:07 Order name: Urine Microscopic Only; Complete Time: 21:12 EDMS 06/06 23:07 Order name: Troponin (emerg Dept Use Only) 06/06 23:08 Order name: Troponin (Emerg Dept Use Only) EDMS EC:00 Rate is 84 beats/min. Rhythm is regular. [place] interval is normal. QRS interval is normal. cp QT interval is normal. T waves are Inverted in lead aVL. Interpreted by me. Reviewed by me. Administered Medications: 20:12 Drug: fentaNYL (PF) 25 mcg {Note: RASS 0.} Route: IVP; Site: Other; 23:26 Follow up: Response: No adverse reaction; Pain is decreased iw Disposition: 06/07 00:15 Chart complete. cp 00:18 Co-signature as Attending Physician, Tracey Vera MD. ma2 Disposition: 06/06/20 23:57 Discharged to Home. Impression: Weakness, Cocaine abuse, Low back pain. - Condition is Stable. - Discharge Instructions: Back Pain, Adult, Weakness, Heat Therapy, Back Exercises. - Prescriptions for Ibuprofen 800 mg Oral Tablet - take 1 tablet by ORAL route every 8 hours As needed take with food; 30 tablet. - Medication Reconciliation Form, Thank You Letter, Antibiotic Education, Prescription Opioid Use form. - Follow up: Private Physician; When: 1 - 2 days; Reason: Recheck today's complaints. - Problem is new. - Symptoms have improved. Signatures: Dispatcher [employer] EDMS Marely Dowell RN RN Vipul Fay PA PA cp Alzahri, Mohammad, MD MD ma2 Estrella Orozco RN RN zb Williams, Irene RN iw Corrections: (The following items were deleted from the chart) 00:11 06/06 23:57 06/06/2020 23:57 Discharged to Home. Impression: Weakness; Cocaine abuse; bb Low back pain. Condition is Stable. Forms are Medication Reconciliation Form, Thank You Letter, Antibiotic Education, Prescription Opioid Use. Follow up: Private Physician; When: 1 - 2 days; Reason: Recheck today's complaints. Problem is new. Symptoms have improved. cp
[2020-06-07 03:41] VITALS: BP 139/73; TEMP 98.6; O2SAT 99
--- NOTE | 2020-06-07 06:45 | EKG ---
Test Date: 2020-06-06 Test Time: 18:51:20 Event Management Consultant: RAYMUNDO MEASUREMENT RESULTS: Intervals: Rate: 84 NH: 196 QRSD: 78 QT: 338 QTc: 399 Sunman: P: 54 NH: 196 QRS: 75 T: 71 INTERPRETIVE STATEMENTS: Normal sinus rhythm Normal ECG Compared to ECG 05/10/2020 15:32:08 First degree AV block no longer present Myocardial infarct finding no longer present Electronically Signed On 06-07-20 06:43:55 CDT by Rocco Menjivar
== END 2020-06-07 00:11 | disposition home or self-care (01) ==
LOC: ER 18:13
DX: R53.1 Weakness (principal); F14.10 Cocaine abuse, uncomplicated; M54.5 Low back pain; G89.29 Other chronic pain; Z85.038 Personal history of other malignant neoplasm of large intestine; Z96.641 Presence of right artificial hip joint; I10 Essential (primary) hypertension; F17.210 Nicotine dependence, cigarettes, uncomplicated
CPT/HCPCS: 93005; 85025; 80048; 36415; 83735; 85610; 80076; 80307 ×8; 84484 ×2; 83880; 70450; 71045; 96374; 99285; J3010; 81003; 81015

== ENCOUNTER 2020-06-18 20:48 | Emergency (ER) | payer OTHER ==
--- NOTE | 2020-06-18 21:34 | RAD REPORT ---
EXAM DESCRIPTION: RAD - Chest Single View - 06/18/2020 9:20 pm CLINICAL HISTORY: CHEST PAIN Chest pain. COMPARISON: Chest Single View dated 06/06/2020; Chest Single View dated 05/18/2020; Chest Single View d ated 05/10/2020; Chest Single View dated 03/21/2020 FINDINGS: Portable technique limits examination quality. The left lung is grossly clear. The inferior right lung pleural and parenchymal chronic calcification is stable. The heart is normal in size. Tortuous thoracic aorta is present.
[2020-06-18 21:45] LABS: Absolute Lymphocytes (CBC) 1.4 K/uL (0.7-4.9); Basophils % 0.8 % (0-1.3); Hematocrit 39.1 % (39.6-49.0); Lymphocytes % 25.2 % (15.3-44.8); MPV 7.1 fL (7.6-11.3); RBC Red Blood Cell Count 4.93 M/uL (4.33-5.43)
[2020-06-18] MEDS ORDERED: FENTANYL CITR 100 MCG/2 ML ONE (21:46)
[2020-06-18 22:29] LABS: Protime INR 0.99
[2020-06-18 22:42] LABS: Urine Blood Trace-lysed (Negative); Urine Glucose Negative (Negative); Urine Protein Negative (Negative); Urine Specific Gravity 1.025 (1.005-1.030); Urine pH 5.5 (5.0-7.0)
[2020-06-18 22:47] LABS: ALT/SGPT 26 U/L (12-78); Alkaline Phosphatase 83 U/L (45-117); BUN Blood Urea Nitrogen 20 mg/dL (7-18); Bicarbonate 25 mmol/L (21-32); Bilirubin Direct 0.1 mg/dL (0-0.2); Bilirubin Total 0.5 mg/dL (0.2-1.0); Glucose Level 94 mg/dL (74-106); NT PRO-BNP 293 pg/mL (<450); Protein, Total 6.6 g/dL (6.4-8.2); Sodium Level 142 mmol/L (136-145); Troponin (Emerg Dept Use Only) < 0.02 ng/mL (0.0-0.045)
[2020-06-18 22:48] LABS: AST/SGOT 26 U/L (15-37); Magnesium 2.2 mg/dL (1.8-2.4); Potassium 4.1 mmol/L (3.5-5.1)
[2020-06-18 23:13] LABS: Barbiturates NEGATIVE (NEGATIVE); Benzodiazepines NEGATIVE (NEGATIVE); Cocaine NEGATIVE (NEGATIVE); METHAMPHETAM NEGATIVE (NEGATIVE); Methadone NEGATIVE (NEGATIVE); Opiates NEGATIVE (NEGATIVE); Phencyclidine NEGATIVE (NEGATIVE); THC Cannibis NEGATIVE (NEGATIVE)
--- NOTE | 2020-06-19 00:14 | ER ---
Nurse's Notes [facility] Name: Deacon Howe Jr Age: 84 yrs Sex: Male : 1935 Arrival Date: 06/18/2020 Time: 20:49 Bed 7 Private MD: Diagnosis: Other chronic pain;Chest pain, unspecified Presentation: 06/18 20:50 Chief complaint: EMS states: they were toned out for report of pt with chest and back bb pain for 2 days. Coronavirus screen: At this time, the client does not indicate any symptoms associated with coronavirus-19. Ebola Screen: No symptoms or risks identified at this time. Initial Sepsis Screen: Does the patient meet any 2 criteria? No. Patient's initial sepsis screen is negative. Does the patient have a suspected source of infection? No. Patient's initial sepsis screen is negative. Risk Assessment: Do you want to hurt yourself or someone else? Patient reports no desire to harm self or others. Onset of symptoms was June 16, 2020. 20:50 Method Of Arrival: EMS: [facility] bb 20:50 Acuity: ALIN 3 bb Historical: - Allergies: 20:52 NKDA; bb - Home Meds: 20:52 Ibuprofen elixer Oral [Active]; lidocaine patch [Active]; bb - PMHx: 20:52 Chronic pain; colon cancer; Hepatitis; HIV; Hypertension; substance abuse; bb - PSHx: 20:52 Cholecystectomy; right eye; R-hip replacement; bb - Immunization history:: Adult Immunizations up to date. - Social history:: Smoking status: unknown. Screenin:44 Abuse screen: Denies threats or abuse. Denies injuries from another. Nutritional wh screening: No deficits noted. Tuberculosis screening: No symptoms or risk factors identified. Fall Risk None identified. Assessment: 21:43 General: Appears in no apparent distress. Behavior is calm, cooperative. Pain: wh Complains of pain in mid-sternal area Pain radiates to back Quality of pain is described as aching. Neuro: Level of Consciousness is awake, alert, obeys commands, Oriented to person, place, time, situation. Cardiovascular: Capillary refill < 3 seconds. Respiratory: Airway is patent Respiratory effort is even, unlabored, Respiratory pattern is regular, symmetrical. GI: Abdomen is flat, non-distended. : No signs and/or symptoms were reported regarding the genitourinary system. EENT: No signs and/or symptoms were reported regarding the EENT system. Derm: Skin is intact, Skin is pink, warm \T\ dry. Musculoskeletal: Circulation, motion, and sensation intact. Vital Signs: 20:50 BP 138 / 85; Pulse 103; Resp 16 S; Temp 97.2(O); Pulse Ox 100% on R/A; Pain 8/10; bb 21:44 BP 157 / 92; Pulse 60; Resp 18; Pulse Ox 99% on R/A; wh 04 00:59 BP 154 / 84; Pulse 61; Resp 18; Pulse Ox 100% on R/A; mg2 ED Course: 06/18 20:49 Patient arrived in ED. cf2 20:51 Triage completed. bb 20:52 Arm band placed on Patient placed in an exam room, on a stretcher, on monitoring engineer, bb on pulse oximetry. 20:58 Dhruv Richard NP is PHCP. pm1 20:58 Vipul Castillo MD is Attending Physician. pm1 21:00 Patient has correct armband on for positive identification. Placed in gown. Bed in low wh position. Call light in reach. Side rails up X 1. bus driver/monitor on. Pulse ox on. NIBP on. 21:18 XRAY Chest (1 view) In Process Unspecified. EDMS 21:21 Ekaterina Turner, MARYANNE is Primary Nurse. wh 21:22 No provider procedures requiring assistance completed. Inserted saline lock: 20 gauge mg2 in right ,using aseptic technique. leg. 06/19 01:06 IV discontinued, intact, bleeding controlled, No redness/swelling at site. Pressure mg2 dressing applied. Administered Medications: 06/18 21:32 Drug: fentaNYL (PF) 25 mcg Route: IVP; Site: Other; mg2 22:59 Follow up: Response: No adverse reaction mg2 Outcome: 06/19 00:13 Discharge ordered by . pm1 01:06 Discharged to home via wheelchair. mg2 01:06 Condition: good 01:06 Discharge instructions given to patient, Instructed on discharge instructions, follow up and referral plans. Demonstrated understanding of instructions, follow-up care. 01:06 Patient left the ED. mg2 Signatures: Dispatcher [facility] EDMarely Olguin RN RN bb Dhruv Richard, MACHINE MAINTENANCE REPAIRER MACHINE MAINTENANCE REPAIRER pm1 Ekaterina Turner, RN RN wh Henrry Graf, RN RN mg2 Lizbeth Vargas cf2
--- NOTE | 2020-06-19 00:14 | EDPHYS ---
Physician Documentation [facility] Name: Deacon Howe Jr Age: 84 yrs Sex: Male : 1935 Arrival Date: 06/18/2020 Time: 20:49 Bed 7 Private MD: ED Physician Vipul Castillo HPI: 06/18 21:30 This 84 yrs old Black Male presents to ER via EMS with complaints of PAIN ALL OVER. pm1 21:30 The patient or guardian reports chest pain that is located primarily in the mid-sternal pm1 area. 21:30 Onset: 2 day(s) ago. The pain does not radiate. Associated signs and symptoms: pm1 Pertinent positives: chronic low back pain, Pertinent negatives: abdominal pain, cough, shortness of breath. The chest pain is described as aching. Duration: The patient or guardian reports a single episode, that is still ongoing. Modifying factors: The symptoms are alleviated by nothing. the symptoms are aggravated by nothing. The patient has experienced similar episodes in the past, chronically, Chronic low back pain aggravated with bending and movement. It is unknown whether or not the patient has recently seen a physician. Historical: - Allergies: 20:52 NKDA; bb - Home Meds: 20:52 Ibuprofen elixer Oral [Active]; lidocaine patch [Active]; bb - PMHx: 20:52 Chronic pain; colon cancer; Hepatitis; HIV; Hypertension; substance abuse; bb - PSHx: 20:52 Cholecystectomy; right eye; R-hip replacement; bb - Immunization history:: Adult Immunizations up to date. - Social history:: Smoking status: unknown. ROS: 21:30 Constitutional: Negative for fever, chills, and weight loss, Respiratory: Negative for pm1 shortness of breath, cough, wheezing, and pleuritic chest pain. 21:30 Abdomen/GI: Negative for abdominal pain, nausea, vomiting, diarrhea, and constipation. 21:30 MS/Extremity: Negative for injury and deformity, Skin: Negative for injury, rash, and discoloration. 21:30 Neuro: Negative for headache, weakness, numbness, tingling, and seizure. 21:30 Cardiovascular: Positive for chest pain, Negative for edema, palpitations. 21:30 Back: Positive for of the low back area pain. Exam: 21:30 Constitutional: This is a well developed, well nourished patient who is awake, alert, pm1 and in no acute distress. Head/Face: Normocephalic, atraumatic. 21:30 Skin: Warm, dry with normal turgor. Normal color with no rashes, no lesions, and no evidence of cellulitis. MS/ Extremity: Pulses equal, no cyanosis. Neurovascular intact. Full, normal range of motion. 21:30 Cardiovascular: Exam negative for acute changes, Rate: normal, Rhythm: regular, Pulses: no pulse deficits are appreciated, Heart sounds: normal. 21:30 Respiratory: Exam negative for acute changes, respiratory distress, shortness of breath, Breath sounds: are clear throughout. 21:30 Abdomen/GI: Exam negative for Inspection: abdomen appears normal, Palpation: abdomen is soft and non-tender, in all quadrants. 21:30 Neuro: Exam negative for acute changes, Orientation: is normal, Mentation: is normal, Motor: is normal, moves all fours. Vital Signs: 20:50 BP 138 / 85; Pulse 103; Resp 16 S; Temp 97.2(O); Pulse Ox 100% on R/A; Pain 8/10; bb 21:44 BP 157 / 92; Pulse 60; Resp 18; Pulse Ox 99% on R/A; wh 06/19 00:59 BP 154 / 84; Pulse 61; Resp 18; Pulse Ox 100% on R/A; mg2 MDM: 06/18 21:02 Patient medically screened. pm1 21:33 Data reviewed: vital signs. pm1 06/19 00:12 Counseling: I had a detailed discussion with the patient and/or guardian regarding: the pm1 historical points, exam findings, and any diagnostic results supporting the discharge/admit diagnosis, lab results, radiology results, the need for outpatient follow up, to return to the emergency department if symptoms worsen or persist or if there are any questions or concerns that arise at home. 06/18 21:03 Order name: Basic Metabolic Panel pm1 06/18 21:03 Order name: CBC with Diff pm1 06/18 21:03 Order name: LFT's pm1 06/18 21:03 Order name: Magnesium pm1 06/18 21:03 Order name: NT PRO-BNP pm1 06/18 21:03 Order name: PT-INR; Complete Time: 00:11 pm1 06/18 21:03 Order name: Troponin (emerg Dept Use Only); Complete Time: 00:11 pm1 04 21:03 Order name: UDS; Complete Time: 00:11 pm1 04 21:03 Order name: Basic Metabolic Panel; Complete Time: 00:11 EDMS 04 21:03 Order name: CBC with Automated Diff; Complete Time: 22:10 EDMS 04 21:03 Order name: Liver (Hepatic) Function; Complete Time: 00:11 EDMS 04 21:03 Order name: Magnesium; Complete Time: 00:11 EDMS 04 21:03 Order name: NT PRO-BNP; Complete Time: 00:11 EDMS 04 22:42 Order name: Urine Dipstick-Ancillary EDMS 06/18 21:03 Order name: XRAY Chest (1 view); Complete Time: 21:37 pm1 04/ 21:03 Order name: EKG; Complete Time: 21:04 pm1 04 21:03 Order name: Cardiac monitoring; Complete Time: 21:21 pm1 04/06 21:03 Order name: EKG - Nurse/Tech; Complete Time: 21:21 pm1 04/ 21:03 Order name: IV Saline Lock; Complete Time: 21:21 pm1 04/06 21:03 Order name: Labs collected and sent; Complete Time: 21:32 pm1 04/ 21:03 Order name: O2 Per Protocol; Complete Time: 21:21 pm1 04/ 21:03 Order name: O2 Sat Monitoring; Complete Time: 21:21 pm1 04 21:03 Order name: Urine Dipstick-Ancillary (obtain specimen); Complete Time: 22:42 pm1 Administered Medications: 06/18 21:32 Drug: fentaNYL (PF) 25 mcg Route: IVP; Site: Other; mg2 22:59 Follow up: Response: No adverse reaction mg2 Disposition: 06/19 06:41 Co-signature as Attending Physician, Vipul Castillo MD I agree with the assessment and martin plan of care. Disposition: 06/19/20 00:13 Discharged to Home. Impression: Other chronic pain, Chest pain, unspecified. - Condition is Stable. - Discharge Instructions: Nonspecific Chest Pain, Chronic Pain. - Medication Reconciliation Form, Thank You Letter, Antibiotic Education, Prescription Opioid Use form. - Follow up: Emergency Department; When: As needed; Reason: Worsening of condition. Follow up: Private Physician; When: 2 - 3 days; Reason: Recheck today's complaints, Continuance of care, Re-evaluation by your physician. - Problem is new. - Symptoms have improved. Signatures: Dispatcher [employer] EDMS Vipul Castillo MD MD cha Ballard, Brenda, RN RN bb Dhruv Richard, COMPENSATION AND BENEFITS ANALYST COMPENSATION AND BENEFITS ANALYST pm1 Henrry Graf RN RN mg2 Corrections: (The following items were deleted from the chart) 01:06 00:13 06/19/2020 00:13 Discharged to Home. Impression: Other chronic pain; Chest pain, mg2 unspecified. Condition is Stable. Forms are Medication Reconciliation Form, Thank You Letter, Antibiotic Education, Prescription Opioid Use. Follow up: Emergency Department; When: As needed; Reason: Worsening of condition. Follow up: Private Physician; When: 2 - 3 days; Reason: Recheck today's complaints, Continuance of care, Re-evaluation by your physician. Problem is new. Symptoms have improved. pm1
[2020-06-19 02:41] VITALS: TEMP 97.2
[2020-06-19 02:44] VITALS: BP 154/84; O2SAT 100
--- NOTE | 2020-06-19 12:47 | EKG ---
Test Date: 2020-06-18 Test Time: 20:54:27 Safety Assistant: MEASUREMENT RESULTS: Intervals: Rate: 62 DE: 198 QRSD: 80 QT: 388 QTc: 393 [place]: P: 55 DE: 198 QRS: 84 T: 72 INTERPRETIVE STATEMENTS: Normal sinus rhythm Normal ECG Compared to ECG 06/06/2020 18:51:20 No significant changes Electronically Signed On 06-19-20 12:45:29 CDT by Rocco Menjivar
== END 2020-06-19 01:06 | disposition home or self-care (01) ==
LOC: ER 20:48
DX: G89.29 Other chronic pain (principal); I10 Essential (primary) hypertension; Z21 Asymptomatic human immunodeficiency virus [HIV] infection status; Z85.038 Personal history of other malignant neoplasm of large intestine
CPT/HCPCS: 93005; 85025; 80048; 36415; 83735; 85610; 80076; 80307 ×8; 81003; 84484; 83880; 71045; J3010; 96374; 99284

== ENCOUNTER 2020-08-14 03:48 | Emergency (ER) | payer OTHER ==
--- NOTE | 2020-08-14 04:39 | ER ---
Nurse's Notes [facility] Name: Deacon Howe Jr Age: 84 yrs Sex: Male : 1935 Arrival Date: 08/14/2020 Time: 03:54 Bed 23 Private MD: Diagnosis: Cellulitis of left lower limb Presentation: 08/14 04:14 Chief complaint: EMS states: they were toned out for report of pt c/o generalized pain bb starting yesterday and pain to left foot after dog bite a week ago. Coronavirus screen: At this time, the client does not indicate any symptoms associated with coronavirus-19. Ebola Screen: No symptoms or risks identified at this time. Initial Sepsis Screen: Does the patient meet any 2 criteria? No. Patient's initial sepsis screen is negative. Does the patient have a suspected source of infection? No. Patient's initial sepsis screen is negative. Risk Assessment: Do you want to hurt yourself or someone else? Patient reports no desire to harm self or others. Onset of symptoms was August 13, 2020. 04:14 Method Of Arrival: EMS: [facility] bb 04:14 Acuity: ALIN 4 bb Historical: - Allergies: 04:16 NKDA; bb - PSHx: 04:18 Cholecystectomy; right eye; R-hip replacement; bb - Immunization history:: Adult Immunizations unknown. - Social history:: Smoking status: unknown. - Family history:: not pertinent. - Hospitalizations: : No recent hospitalization is reported. Screenin:15 Abuse screen: Denies threats or abuse. Denies injuries from another. Nutritional wh screening: No deficits noted. Tuberculosis screening: No symptoms or risk factors identified. Fall Risk None identified. Assessment: 04:15 General: Appears in no apparent distress. Behavior is calm, cooperative. Pain: wh Complains of pain in generalized pain all over. Neuro: Level of Consciousness is awake, alert, obeys commands, Oriented to person, place, time, situation. Cardiovascular: Capillary refill < 3 seconds. Respiratory: Airway is patent Respiratory effort is even, unlabored, Respiratory pattern is regular, symmetrical. GI: Abdomen is flat, non-distended. : No signs and/or symptoms were reported regarding the genitourinary system. EENT: No signs and/or symptoms were reported regarding the EENT system. Derm: Skin is intact, Skin is normal. Musculoskeletal: Circulation, motion, and sensation intact. 04:58 Reassessment: Patient is alert, oriented x 3, equal unlabored respirations, skin bb warm/dry/pink. pt verbalized understanding of and agrees to plan of care discharge instructions given pt assisted to exit via wheelchair. Vital Signs: 04:14 BP 158 / 78; Pulse 64; Resp 16 S; Temp 97.8(O); Pulse Ox 99% on R/A; Weight 74.84 kg bb (R); Height 6 ft. 2 in. (187.96 cm) (R); Pain 9/10; 04:14 Body Mass Index 21.18 (74.84 kg, 187.96 cm) bb ED Course: 03:54 Patient arrived in ED. mw2 04:09 Sp Herron MD is Attending Physician. rn 04:15 Patient has correct armband on for positive identification. Bed in low position. Call light in reach. Side rails up X 1. Pulse ox on. NIBP on. 04:16 Triage completed. bb 04:16 Arm band placed on Patient placed in an exam room, on a stretcher, on pulse oximetry. bb 04:33 Ekaterina Turner, RN is Primary Nurse. 05:01 No provider procedures requiring assistance completed. Patient did not have IV access bb during this emergency room visit. Administered Medications: 04:37 Drug: Bactrim (trimethoprim-sulfamethoxazole) (160 mg-800 mg (DS) 1 tablet Route: PO; 04:58 Follow up: Response: No adverse reaction bb 04:37 Drug: [place] (HYDROcodone-acetaminophen) 10 mg-325 mg 1 tabs Route: PO; 04:58 Follow up: Response: No adverse reaction; RASS: Alert and Calm (0) bb Outcome: 04:38 Discharge ordered by . rn 05:01 Discharged to home via wheelchair. bb 05:01 Condition: stable 05:01 Discharge instructions given to patient, Instructed on discharge instructions, follow up and referral plans. medication usage, Demonstrated understanding of instructions, follow-up care, medications, Prescriptions given X 1. 05:02 Patient left the ED. bb Signatures: Marely Dowell RN RN bb Nieto, Roman, MD MD rn Habalo, Winsy, RN RN Elizabeth, MyKena mw2
--- NOTE | 2020-08-14 04:39 | EDPHYS ---
Physician Documentation [facility] Name: Deacon Howe Jr Age: 84 yrs Sex: Male : 1935 Arrival Date: 08/14/2020 Time: 03:54 Bed 23 Private MD: ED Physician Sp Herron HPI: 08/14 04:32 This 84 yrs old Black Male presents to ER via EMS with complaints of foot pain. rn 04:32 The patient presents with pain, that is acute. The complaints affect the left foot. rn Onset: The symptoms/episode began/occurred 2 week(s) ago. Modifying factors: The symptoms are alleviated by nothing, the symptoms are aggravated by weight bearing. Associated signs and symptoms: Pertinent positives: swelling, Pertinent negatives: fever. Severity of symptoms: At their worst the symptoms were mild, in the emergency department the symptoms are unchanged. The patient has not experienced similar symptoms in the past. The patient has not recently seen a physician. Reports bitten by dog 2 weeks ago, having pain since then, no fever, feels mild swelling. No other injury. Reports feels generalized weakness, but still riding his bike around town today.. Historical: - Allergies: 04:16 NKDA; bb - PSHx: 04:18 Cholecystectomy; right eye; R-hip replacement; bb - Immunization history:: Adult Immunizations unknown. - Social history:: Smoking status: unknown. - Family history:: not pertinent. - Hospitalizations: : No recent hospitalization is reported. ROS: 04:32 Constitutional: Negative for fever, chills, and weight loss, MS/Extremity: Negative for rn deformity Skin: Negative for rash, and discoloration Neuro: Negative for headache, numbness, tingling, and seizure. Exam: 04:32 Constitutional: This is a well developed, well nourished patient who is awake, alert, rn and in no acute distress. Head/Face: Normocephalic, atraumatic. Cardiovascular: Regular rate and rhythm . No pulse deficits. Respiratory: No increased work of breathing, no retractions or nasal flaring. Abdomen/GI: soft, non-tender Skin: Warm, dry, no abscess, + mild swelling left lateral foot. MS/ Extremity: Pulses equal, no cyanosis. Neurovascular intact. Full, normal range of motion. Equal circumference. Vital Signs: 04:14 BP 158 / 78; Pulse 64; Resp 16 S; Temp 97.8(O); Pulse Ox 99% on R/A; Weight 74.84 kg bb (R); Height 6 ft. 2 in. (187.96 cm) (R); Pain 9/10; 04:14 Body Mass Index 21.18 (74.84 kg, 187.96 cm) bb MDM: 04:09 Patient medically screened. rn 04:32 Differential diagnosis: sprain, cellulitis. Differential diagnosis: arthritis. Data rn reviewed: vital signs, nurses notes. Data reviewed: and as a result, I will discharge patient. Counseling: I had a detailed discussion with the patient and/or guardian regarding: the historical points, exam findings, and any diagnostic results supporting the discharge/admit diagnosis, the need for outpatient follow up, to return to the emergency department if symptoms worsen or persist or if there are any questions or concerns that arise at home. Response to treatment: the patient's symptoms have mildly improved after treatment, and as a result, I will discharge patient. Special discussion: I discussed with the patient/guardian in detail that at this point there is no indication for admission to the hospital. It is understood, however, that if the symptoms persist or worsen the patient needs to return immediately for re-evaluation. Administered Medications: 04:37 Drug: Bactrim (trimethoprim-sulfamethoxazole) (160 mg-800 mg (DS) 1 tablet Route: PO; 04:58 Follow up: Response: No adverse reaction 04:37 Drug: [place] (HYDROcodone-acetaminophen) 10 mg-325 mg 1 tabs Route: PO; 04:58 Follow up: Response: No adverse reaction; RASS: Alert and Calm (0) bb Disposition: 08/14/20 04:38 Discharged to Home. Impression: Cellulitis of left lower limb. - Condition is Stable. - Discharge Instructions: Cellulitis, Adult. - Prescriptions for Bactrim DS 800- 160 mg Oral Tablet - take 1 tablet by ORAL route every 12 hours for 10 days; 20 tablet. - Medication Reconciliation Form, Thank You Letter, Antibiotic Education, Prescription Opioid Use form. - Follow up: Private Physician; When: As needed; Reason: Recheck today's complaints, Re-evaluation by your physician. - Problem is new. - Symptoms have improved. Signatures: Marely Dowell RN RN bb Sp Herron MD MD rn Habalo, MARYANNE Tobar RN Corrections: (The following items were deleted from the chart) 05:02 04:38 08/14/2020 04:38 Discharged to Home. Impression: Cellulitis of left lower limb. bb Condition is Stable. Forms are Medication Reconciliation Form, Thank You Letter, Antibiotic Education, Prescription Opioid Use. Follow up: Private Physician; When: As needed; Reason: Recheck today's complaints, Re-evaluation by your physician. Problem is new. Symptoms have improved. rn
[2020-08-14] MEDS ORDERED: SMZ./TMP. 800/160 MG TABLET ONE (04:55)
[2020-08-14] MEDS ORDERED: HYDROCODONE/APAP 10/325 TAB ONE (04:55)
[2020-08-14 05:16] VITALS: BP 158/78; TEMP 97.8; O2SAT 99
== END 2020-08-14 05:02 | disposition home or self-care (01) ==
LOC: ER 03:48
DX: L03.116 Cellulitis of left lower limb (principal); W54.0XXA Bitten by dog, initial encounter; Z96.641 Presence of right artificial hip joint
CPT/HCPCS: 99284

== ENCOUNTER 2020-09-11 21:48 | Emergency (ER) | payer OTHER ==
--- NOTE | 2020-09-12 00:54 | ER ---
Nurse's Notes [facility] Name: Deacon Howe Jr Age: 84 yrs Sex: Male : 1935 Arrival Date: 09/11/2020 Time: 21:53 Bed External Waiting Private MD: Diagnosis: Presentation: 09/11 21:55 Chief complaint: Patient states: weakness, no strength, started today, felt dizzy. bs2 Coronavirus screen: Client denies travel out of the [place] in the last 14 days. Ebola Screen: Patient negative for fever greater than or equal to 101.5 degrees Fahrenheit, and additional compatible Ebola Virus Disease symptoms Patient denies exposure to infectious person. Patient denies travel to an Ebola-affected area in the 21 days before illness onset. Initial Sepsis Screen: Does the patient meet any 2 criteria? No. Patient's initial sepsis screen is negative. Does the patient have a suspected source of infection? No. Patient's initial sepsis screen is negative. Risk Assessment: Do you want to hurt yourself or someone else? Patient reports no desire to harm self or others. Onset of symptoms was September 11, 2020. 21:55 Method Of Arrival: EMS: [facility] bs2 21:55 Acuity: ALIN 3 bs2 Triage Assessment: 21:57 General: Appears in no apparent distress. uncomfortable, slender, unkempt, Behavior is bs2 cooperative, appropriate for age. Pain: Complains of pain in chest. Historical: - Allergies: 21:57 NKDA; bs2 - PSHx: 21:57 hip; knee; Cholecystectomy; bs2 - Immunization history:: Client reports receiving the 2nd dose of the Covid vaccine, Flu vaccine is up to date. - Social history:: Smoking status: Patient reports the use of cigarette tobacco products, smokes one-half pack cigarettes per day, Patient uses alcohol, occasionally. Vital Signs: 21:55 BP 153 / 88; Pulse 75; Resp 18; Temp 97.6(T); Pulse Ox 98% on R/A; Weight 74.84 kg (R); bs2 Height 6 ft. 2 in. (187.96 cm) (R); Pain 7/10; 21:55 Body Mass Index 21.18 (74.84 kg, 187.96 cm) bs2 ED Course: 21:53 Patient arrived in ED. es 21:57 Triage completed. bs2 21:57 Arm band placed on right wrist. bs2 Administered Medications: No medications were administered Outcome: 09/12 00:53 Patient left the ED. em Signatures: Chelsy Sanders Edgar, RN RN Nikkie Menon bs2
[2020-09-12 01:11] VITALS: BP 153/88; TEMP 97.6; O2SAT 98
== END 2020-09-12 00:53 | disposition left against medical advice (07) ==
LOC: ER 21:48
DX: Z53.21 Procedure and treatment not carried out due to patient leaving prior to being seen by health care provider (principal)
CPT/HCPCS: 99282

== ENCOUNTER 2020-10-02 04:22 | Emergency (ER) | payer OTHER ==
--- NOTE | 2020-10-02 06:15 | ER ---
Nurse's Notes [facility] Name: Deacon Howe Jr Age: 84 yrs Sex: Male : 1935 Arrival Date: 10/02/2020 Time: 04:45 Bed 13 Private MD: Diagnosis: Chronic pain, not elsewhere classified Presentation: 10/02 04:54 Chief complaint: EMS states: they were toned out for report of pt with generalized body bb pain and weakness, pt was discharged from [facility] for the same symptoms yesterday. Coronavirus screen: At this time, the client does not indicate any symptoms associated with coronavirus-19. Ebola Screen: No symptoms or risks identified at this time. Initial Sepsis Screen: Does the patient meet any 2 criteria? No. Patient's initial sepsis screen is negative. Does the patient have a suspected source of infection? No. Patient's initial sepsis screen is negative. Risk Assessment: Do you want to hurt yourself or someone else? Patient reports no desire to harm self or others. Onset of symptoms was October 02, 2020. 04:54 Method Of Arrival: EMS: [facility] 04:54 Acuity: ALIN 4 bb Historical: - Allergies: 04:56 NKDA; bb - PSHx: 04:56 Cholecystectomy; hip; knee; bb - Immunization history:: Adult Immunizations unknown. - Social history:: Smoking status: unknown Patient uses street drugs, cocaine. - Family history:: not pertinent. - Hospitalizations: : Patient was recently seen at. Screenin:18 Abuse screen: Denies threats or abuse. Denies injuries from another. Nutritional ad5 screening: No deficits noted. Tuberculosis screening: No symptoms or risk factors identified. Fall Risk No fall in past 12 months (0 pts). Secondary diagnosis (15 points) IV access (20 points). Ambulatory Aid- Crutches/Cane/Walker (15 pts). Gait- Normal/Bed Rest/Wheelchair (0 pts) Mental Status- Oriented to own ability (0 pts). Total Pedroza Fall Scale indicates High Risk Score (45 or more points). Fall prevention measures have been instituted. Side Rails Up X 2 Frequent Obs/Assessments Occuring As available patient and family educated on Fall Prevention Program and Strategies. Assessment: 05:17 General: Appears in no apparent distress. Behavior is calm, cooperative, appropriate ad5 for age. Pain: Complains of pain in generalized body aches. Neuro: No deficits noted. Level of Consciousness is awake, alert, obeys commands, Oriented to person, place, time, situation, Appropriate for age. Cardiovascular: Capillary refill < 3 seconds Patient's skin is warm and dry. Pulses are all present. Rhythm is regular. Respiratory: No deficits noted. Airway is patent Respiratory effort is even, unlabored, Respiratory pattern is regular, symmetrical. GI: No deficits noted. No signs and/or symptoms were reported involving the gastrointestinal system. : No deficits noted. No signs and/or symptoms were reported regarding the genitourinary system. Derm: Skin is dry, Skin is normal, Skin temperature is warm. Musculoskeletal: Reports pain in body aches, was d/c from [place] after negative workup and received "[place]" with minimal relief of s/s. 05:35 Reassessment: Pt resting comfortably in stretcher, appears asleep, resp even/unlabored. ad5 Bed remains low and locked, bedrails up, call light within reach. NAD noted, will continue to monitor. 06:18 Reassessment: Patient appears in no apparent distress at this time. Patient and/or ad5 family updated on plan of care and expected duration. Pain level reassessed. Patient is alert, oriented x 3, equal unlabored respirations, skin warm/dry/pink. Vital Signs: 04:54 BP 175 / 86; Pulse 72; Resp 18 S; Temp 97.7(O); Pulse Ox 98% on R/A; Weight 77.11 kg bb (R); Height 6 ft. 2 in. (187.96 cm) (R); Pain 8/10; 06:19 Pulse 74; Resp 18 S; Pulse Ox 97% on R/A; ad5 04:54 Body Mass Index 21.83 (77.11 kg, 187.96 cm) bb ED Course: 04:45 Patient arrived in ED. mw2 04:51 Sp Herron MD is Attending Physician. rn 04:56 Triage completed. bb 04:56 Arm band placed on Patient placed in an exam room, on a stretcher, on pulse oximetry. bb 05:03 Shemar Kenyon is Primary Nurse. ad5 05:19 Patient has correct armband on for positive identification. Bed in low position. Call ad5 light in reach. Side rails up X 1. Pulse ox on. NIBP on. Door closed. Noise minimized. Warm blanket given. Head of bed lowered. 06:20 No provider procedures requiring assistance completed. Patient did not have IV access ad5 during this emergency room visit. Administered Medications: 06:18 Drug: HYDROcodone-acetaminophen 5 mg-325 mg 1 tabs Route: PO; ad5 06:18 Drug: Ibuprofen 600 mg Route: PO; ad5 Outcome: 05:38 Discharge ordered by . rn 06:22 Discharged to home via wheelchair. ad5 06:22 Condition: stable 06:22 Discharge instructions given to patient, Instructed on discharge instructions, follow up and referral plans. Demonstrated understanding of instructions, follow-up care. 06:23 Patient left the ED. ad5 Signatures: Marely Dowell RN RN bb Nieto, Roman, MD MD rn [place], MyKena mw2 Shemar Kenyon ad5
--- NOTE | 2020-10-02 06:15 | EDPHYS ---
Physician Documentation [facility] Name: Deacon Howe Jr Age: 84 yrs Sex: Male : 1935 Arrival Date: 10/02/2020 Time: 04:45 Bed 13 Private MD: ED Physician Sp Herron HPI: 10/02 05:05 This 84 yrs old Black Male presents to ER via EMS with complaints of Pain all over. rn 05:05 Patient reports just sent home from [facility] today, got a ride to [place], rn began to experience some of his chronic pain, called 911 for a ride to hospital. Reports feels generalized fatigue but otherwise denies fevers chills chest pain shortness of breath abdominal pain nausea vomiting or diarrhea. Onset: The symptoms/episode began/occurred at an unknown time. Severity of symptoms: At their worst the symptoms were mild in the emergency department the symptoms are unchanged. The patient has experienced similar episodes in the past. The patient has been recently seen by a physician:. Historical: - Allergies: 04:56 NKDA; bb - PSHx: 04:56 Cholecystectomy; hip; knee; bb - Immunization history:: Adult Immunizations unknown. - Social history:: Smoking status: unknown Patient uses street drugs, cocaine. - Family history:: not pertinent. - Hospitalizations: : Patient was recently seen at. ROS: 05:05 Constitutional: Negative for fever, chills, and weight loss, Eyes: Negative for injury, rn pain, redness, and discharge, ENT: Negative for injury, pain, and discharge, Neck: Negative for injury, pain, and swelling, Cardiovascular: Negative for chest pain, palpitations, and edema, Respiratory: Negative for shortness of breath, cough, wheezing, and pleuritic chest pain, Abdomen/GI: Negative for abdominal pain, nausea, vomiting, diarrhea, and constipation, Back: Negative for injury and pain, : Negative for injury, bleeding, discharge, and swelling, MS/Extremity: Negative for injury and deformity, Skin: Negative for injury, rash, and discoloration, Neuro: Negative for headache, numbness, tingling, and seizure. Exam: 05:05 Constitutional: Thin male no acute distress Head/Face: Normocephalic, atraumatic. rn rehabilitation: Moist mucous membranes no stridor Cardiovascular: Regular rate and rhythm. No pulse deficits. Respiratory: No increased work of breathing, no retractions or nasal flaring. Abdomen/GI: Soft, non-tender Skin: Warm, dry MS/ Extremity: Pulses equal, no cyanosis. Neurovascular intact. Full, normal range of motion. Equal circumference. Neuro: Awake and alert, GCS 15, oriented to person, place, time, and situation. Cranial nerves II-XII grossly intact. Motor strength 5/5 in all extremities. Sensory grossly intact. Cerebellar exam normal. Vital Signs: 04:54 BP 175 / 86; Pulse 72; Resp 18 S; Temp 97.7(O); Pulse Ox 98% on R/A; Weight 77.11 kg bb (R); Height 6 ft. 2 in. (187.96 cm) (R); Pain 8/10; 06:19 Pulse 74; Resp 18 S; Pulse Ox 97% on R/A; ad5 04:54 Body Mass Index 21.83 (77.11 kg, 187.96 cm) bb MDM: 04:51 Patient medically screened. rn 05:36 Differential Diagnosis chronic pain, fatigue. Data reviewed: vital signs, nurses notes, rn and as a result, I will discharge patient. Counseling: I had a detailed discussion with the patient and/or guardian regarding: the historical points, exam findings, and any diagnostic results supporting the discharge/admit diagnosis, the need for outpatient follow up, to return to the emergency department if symptoms worsen or persist or if there are any questions or concerns that arise at home. Response to treatment: the patient's symptoms have mildly improved after treatment, and as a result, I will discharge patient. Special discussion: I discussed with the patient/guardian in detail that at this point there is no indication for admission to the hospital. It is understood, however, that if the symptoms persist or worsen the patient needs to return immediately for re-evaluation. ED course: With stable vital signs, no acute complaints given oral pain medication here with some improvement. Reports chronic pain. No acute findings on examination. Will DC home with return precautions.. Administered Medications: 06:18 Drug: HYDROcodone-acetaminophen 5 mg-325 mg 1 tabs Route: PO; ad5 06:18 Drug: Ibuprofen 600 mg Route: PO; ad5 Disposition Summary: 10/02/20 05:38 Discharge Ordered Location: Home rn Problem: chronic rn Symptoms: have improved rn Condition: Stable rn Diagnosis - Chronic pain, not elsewhere classified rn Followup: rn - With: Private Physician - When: As needed - Reason: Recheck today's complaints, Re-evaluation by your physician Discharge Instructions: - Discharge Summary Sheet rn - Chronic Pain, Adult rn Forms: - Medication Reconciliation Form rn - Thank You Letter rn - Antibiotic rn labor delivery - Prescription Opioid Use rn Signatures: Marely Dowell RN RN bb Nieto, Roman, MD MD rn Davidson, Andrea ad5
[2020-10-02] MEDS ORDERED: HYDROCODONE/APAP 5/325 MG TAB ONE (06:32)
[2020-10-02] MEDS ORDERED: IBUPROFEN 200 MG TAB PO ONE (06:32)
[2020-10-03 01:56] VITALS: BP 175/86; TEMP 97.7; O2SAT 97
== END 2020-10-02 06:23 | disposition home or self-care (01) ==
LOC: ER 04:22
DX: G89.29 Other chronic pain (principal)
CPT/HCPCS: 99284

== ENCOUNTER 2021-10-21 15:29 | Emergency (ER) | payer OTHER ==
--- NOTE | 2021-10-21 16:17 | RAD REPORT ---
EXAM DESCRIPTION: RAD - Chest Single View - 10/21/2021 4:07 pm CLINICAL HISTORY: COUGH Chest pain. COMPARISON: Chest Single View dated 06/18/2020; Chest Single View dated 06/06/2020; Chest Single View d ated 05/18/2020; Chest Single View dated 05/10/2020 FINDINGS: Portable technique limits examination quality. Chronic right-sided pleural and parenchymal opacities are again noted, unchanged. The left lung is gr ossly clear. The heart is normal in size. Tortuous thoracic aorta. IMPRESSION: No acute intrathoracic process suspected.
[2021-10-21 16:34] LABS: Urine Blood Negative (Negative); Urine Glucose Negative (Negative); Urine Protein Negative (Negative); Urine pH 5.5 (5.0-7.0)
[2021-10-21 16:54] LABS: Barbiturates NEGATIVE (NEGATIVE); Benzodiazepines NEGATIVE (NEGATIVE); Cocaine POSITIVE (NEGATIVE); METHAMPHETAM NEGATIVE (NEGATIVE); Methadone NEGATIVE (NEGATIVE); Opiates NEGATIVE (NEGATIVE); Phencyclidine NEGATIVE (NEGATIVE); THC Cannibis NEGATIVE (NEGATIVE)
[2021-10-21 17:04] LABS: Absolute Lymphocytes (CBC) 1.9 K/uL (0.7-4.9); Hematocrit 47.7 % (39.6-49.0); Lymphocytes % 37.4 % (15.3-44.8); MCV 79.6 fL (80-100); MPV 7.6 fL (7.6-11.3); RBC Red Blood Cell Count 5.99 M/uL (4.33-5.43)
--- NOTE | 2021-10-21 17:06 | RAD REPORT ---
EXAM DESCRIPTION: CT - Head Brain Wo Cont - 10/21/2021 5:00 pm CLINICAL HISTORY: Syncope, simple, abnormal neuro exam Headache, drowsiness COMPARISON: Head Brain Wo Cont dated 06/06/2020; HEAD BRAIN W O CONTRAST dated 10/09/2014 TECHNIQUE: All CT scans are performed using dose optimization technique as appropriate and may inclu de automated exposure control or mA/KV adjustment according to patient size. FINDINGS: No intracranial hemorrhage, hydrocephalus or extra-axial fluid collection.Moderate general ized brain atrophy is present with moderate periventricular and deep white matter chronic microvascul ar ischemic changes.No areas of brain edema or evidence of midline shift. The paranasal sinuses and mastoids are essentially clear. The calvarium is intact. IMPRESSION: No acute intracranial abnormality.
[2021-10-21 17:41] LABS: SARS-CoV-2 Antigen Rapid Res Negative (Negative)
[2021-10-21] MEDS ORDERED: NA CHLORIDE 0.9% 1,000 ML ONE (18:12)
[2021-10-21 18:53] LABS: Protime INR 1.09
[2021-10-21 19:06] LABS: ALT/SGPT 28 U/L (12-78); AST/SGOT 24 U/L (15-37); Albumin 3.1 g/dL (3.4-5.0); Alkaline Phosphatase 76 U/L (45-117); BUN Blood Urea Nitrogen 16 mg/dL (7-18); Bicarbonate 26 mmol/L (21-32); Bilirubin Direct 0.2 mg/dL (0-0.2); Bilirubin Total 0.6 mg/dL (0.2-1.0); Glomerular Filtration Rate 72 ml/min (=/>90); Glucose Level 144 mg/dL (74-106); Magnesium 2.1 mg/dL (1.8-2.4); NT PRO-BNP 102 pg/mL (<450); Potassium 4.1 mmol/L (3.5-5.1); Protein, Total 6.4 g/dL (6.4-8.2); Sodium Level 141 mmol/L (136-145); Troponin High Sensitivity 11.1 pg/mL (<58.9)
--- NOTE | 2021-10-21 19:23 | ER ---
Nurse's Notes [facility] Name: Deacon Howe Jr Age: 85 yrs Sex: Male : 1935 Arrival Date: 10/21/2021 Time: 15:31 Bed 3 Private MD: Diagnosis: Weakness;Cocaine abuse Presentation: 10/21 15:35 Chief complaint: EMS states: Pt c/o generalized weakness and pain all over, VSS. ph Coronavirus screen: Vaccine status: Patient reports receiving the 1st dose of the Covid vaccine. Ebola Screen: No symptoms or risks identified at this time. Initial Sepsis Screen: Does the patient meet any 2 criteria? No. Patient's initial sepsis screen is negative. Does the patient have a suspected source of infection? No. Patient's initial sepsis screen is negative. Risk Assessment: Do you want to hurt yourself or someone else? Patient reports no desire to harm self or others. Onset of symptoms was October 21, 2021. 15:35 [facility] 15:35 Acuity: ALIN 3 ph Historical: - Allergies: 15:39 NKDA; ph - PSHx: 15:39 Cholecystectomy; hip; knee; ph - Immunization history:: Adult Immunizations unknown. - Social history:: Smoking status: Patient reports the use of cigarette tobacco products, smokes one-half pack cigarettes per day. - Family history:: not pertinent. Screenin:39 Abuse screen: Denies threats or abuse. Denies injuries from another. Nutritional ph screening: No deficits noted. Tuberculosis screening: No symptoms or risk factors identified. Fall Risk None identified. Assessment: 15:51 General: Appears in no apparent distress. comfortable, Behavior is calm, cooperative, ph appropriate for age. Pain: Complains of pain in "all over". Neuro: Level of Consciousness is awake, alert, obeys commands, Oriented to person, place, time, situation, Reports weakness in "all over". Cardiovascular: Capillary refill < 3 seconds in bilateral fingers Patient's skin is warm and dry. Respiratory: Airway is patent Respiratory effort is even, unlabored. Derm: Skin is normal. Musculoskeletal: Circulation, motion, and sensation intact. Range of motion: intact in all extremities. 17:15 Reassessment: Patient appears in no apparent distress at this time. Patient and/or ph family updated on plan of care and expected duration. Pain level reassessed. Patient is alert, oriented x 3, equal unlabored respirations, skin warm/dry/pink. 18:41 Reassessment: Patient appears in no apparent distress at this time. Patient and/or ph family updated on plan of care and expected duration. Pain level reassessed. Patient is alert, oriented x 3, equal unlabored respirations, skin warm/dry/pink. 19:36 Reassessment: Patient appears in no apparent distress at this time. Patient and/or jb4 family updated on plan of care and expected duration. Pain level reassessed. Patient is alert, oriented x 3, equal unlabored respirations, skin warm/dry/pink. Vital Signs: 15:35 BP 132 / 80; Pulse 72; Resp 18; Temp 98.7; Pulse Ox 98% ; Weight 81.65 kg; Height 6 ft. ph 3 in. (190.50 cm); 17:00 BP 148 / 88; Pulse 62; Resp 18; Pulse Ox 98% on R/A; ph 18:39 BP 138 / 71; Pulse 79; Resp 20; Pulse Ox 100% on R/A; ph 19:36 BP 159 / 70; Pulse 76; Resp 16; Pulse Ox 99% on R/A; jb4 15:35 Body Mass Index 22.50 (81.65 kg, 190.50 cm) ph ED Course: 15:31 Patient arrived in ED. iw 15:35 Callie Hernandez, RN is Primary Nurse. ph 15:37 Vipul Castillo MD is Attending Physician. martin 15:39 Triage completed. ph 15:39 Arm band placed on Patient placed in an exam room, on a stretcher. ph 15:39 Patient has correct armband on for positive identification. Bed in low position. Call ph light in reach. Side rails up X2. Pulse ox on. NIBP on. Door closed. Noise minimized. Warm blanket given. Pillow given. 16:08 XRAY Chest (1 view) In Process Unspecified. EDMS 16:50 Inserted saline lock: 22 gauge in right ,using aseptic technique. lower leg. ph 17:02 Head Brain Wo Cont In Process Unspecified. EDMS 18:15 Inserted saline lock: 20 gauge in left EJ, using aseptic technique. ,using aseptic ph technique. per Dr Castillo. 18:41 No provider procedures requiring assistance completed. ph 19:37 IV discontinued, intact, bleeding controlled, No redness/swelling at site. Pressure jb4 dressing applied. Administered Medications: 18:25 Drug: NS 0.9% 500 ml Route: IV; Rate: bolus; Site: left jugular; ss 18:26 Drug: NS 0.9% 500 ml Route: IV; Rate: bolus; Site: left jugular; ss 19:12 Follow up: Response: No adverse reaction; IV Status: Completed infusion; IV Intake: ph 500ml 19:31 Not Given (Pt dischargedd): NS 0.9% 1000 ml IV at 125 ml/hr continuous jb4 Medication: 15:39 VIS not applicable for this client. ph Intake: 19:12 IV: 500ml; Total: 500ml. ph Outcome: 19:22 Discharge ordered by . martin 19:37 Discharged to home via wheelchair. jb4 19:37 Condition: stable 19:37 Discharge instructions given to patient, Instructed on discharge instructions, follow up and referral plans. Demonstrated understanding of instructions, follow-up care. 19:45 Patient left the ED. jb4 Signatures: Dispatcher [employer] EDMS Vipul Castillo MD MD cha Williams, Irene, RN Tea Mccoy RN RN ss Hall, Patricia, RN RN ph Bryson, James, RN RN jb4
--- NOTE | 2021-10-21 19:23 | EDPHYS ---
Physician Documentation [facility] Name: Deacon Howe Jr Age: 85 yrs Sex: Male : 1935 Arrival Date: 10/21/2021 Time: 15:31 Bed 3 Private MD: ED Physician Vipul Castillo HPI: 10/21 16:23 This 85 yrs old Black Male presents to ER via EMS with complaints of weakness. martin 16:23 weak , feels like passing out. The patient has experienced near-syncope, almost passed martin out, felt dizzy, felt faint. Onset: The symptoms/episode began/occurred just prior to arrival, this morning, today. Duration: The patient has had multiple episodes, that last 20 second(s). Context: the episode(s) was witnessed, by no one, occurred at home. Associated injury: The patient did not suffer any apparent associated injury. Associated signs and symptoms: Pertinent positives: lightheadedness, weakness. Current symptoms: Currently, the patient is not experiencing any symptoms. Severity of symptoms: At their worst the symptoms were mild in the emergency department the symptoms are unchanged. Historical: - Allergies: 15:39 NKDA; ph - PSHx: 15:39 Cholecystectomy; hip; knee; ph - Immunization history:: Adult Immunizations unknown. - Social history:: Smoking status: Patient reports the use of cigarette tobacco products, smokes one-half pack cigarettes per day. - Family history:: not pertinent. ROS: 16:23 Constitutional: Negative for fever, chills, and weight loss, Eyes: Negative for injury, martin pain, redness, and discharge, ENT: Negative for injury, pain, and discharge, Neck: Negative for injury, pain, and swelling, Cardiovascular: Negative for chest pain, palpitations, and edema, Respiratory: Negative for shortness of breath, cough, wheezing, and pleuritic chest pain, Abdomen/GI: Negative for abdominal pain, nausea, vomiting, diarrhea, and constipation, Back: Negative for injury and pain, : Negative for injury, bleeding, discharge, and swelling, MS/Extremity: Negative for injury and deformity, Skin: Negative for injury, rash, and discoloration, Neuro: Negative for headache, weakness, numbness, tingling, and seizure, Psych: Negative for depression, anxiety, suicide ideation, homicidal ideation, and hallucinations, Allergy/Immunology: Negative for hives, rash, and allergies, Endocrine: Negative for neck swelling, polydipsia, polyuria, polyphagia, and marked weight changes, Hematologic/Lymphatic: Negative for swollen nodes, abnormal bleeding, and unusual bruising. Exam: 16:23 Constitutional: This is a well developed, well nourished patient who is awake, alert, martin and in no acute distress. Head/Face: Normocephalic, atraumatic. Eyes: Pupils equal round and reactive to light, extra-ocular motions intact. Lids and lashes normal. Conjunctiva and sclera are non-icteric and not injected. Cornea within normal limits. Periorbital areas with no swelling, redness, or edema. ENT: Nares patent. No nasal discharge, no septal abnormalities noted. Tympanic membranes are normal and external auditory canals are clear. Oropharynx with no redness, swelling, or masses, exudates, or evidence of obstruction, uvula midline. Mucous membranes moist. Neck: Trachea midline, no thyromegaly or masses palpated, and no cervical lymphadenopathy. Supple, full range of motion without nuchal rigidity, or vertebral point tenderness. No Meningismus. Chest/axilla: Normal chest wall appearance and motion. Nontender with no deformity. No lesions are appreciated. Cardiovascular: Regular rate and rhythm with a normal S1 and S2. No gallops, murmurs, or rubs. Normal PMI, no JVD. No pulse deficits. Respiratory: Lungs have equal breath sounds bilaterally, clear to auscultation and percussion. No rales, rhonchi or wheezes noted. No increased work of breathing, no retractions or nasal flaring. Abdomen/GI: Soft, non-tender, with normal bowel sounds. No distension or tympany. No guarding or rebound. No evidence of tenderness throughout. Back: No spinal tenderness. No costovertebral tenderness. Full range of motion. Male : Normal genitalia with no discharge or lesions. Skin: Warm, dry with normal turgor. Normal color with no rashes, no lesions, and no evidence of cellulitis. MS/ Extremity: Pulses equal, no cyanosis. Neurovascular intact. Full, normal range of motion. Psych: Awake, alert, with orientation to person, place and time. Behavior, mood, and affect are within normal limits. 16:23 Neuro: Orientation: is normal, appropriate for stated age, no acute changes, Mentation: is normal, appropriate for stated age, no acute changes, Memory: appropriate for stated age, no acute changes, Cranial nerves: grossly normal, is grossly normal based on the patient's age, no acute changes, Cerebellar function: is grossly normal, is grossly normal based on the patient's age, no acute changes, Motor: is normal, is grossly normal based on the patient's age, no acute changes, moves all fours, strength is 5/5 in all extremities, Sensation: no obvious gross deficits, appropriate no acute changes, Gait: not tested. Deep tendon reflexes are 2+ (normal) in the bilateral brachioradialis, bicep, tricep and patellar and Achilles tendons, Babinski testing is normal, seizure activity, is not displayed by the patient. 16:28 ECG was reviewed by the Attending Physician. martin Vital Signs: 15:35 BP 132 / 80; Pulse 72; Resp 18; Temp 98.7; Pulse Ox 98% ; Weight 81.65 kg; Height 6 ft. ph 3 in. (190.50 cm); 17:00 BP 148 / 88; Pulse 62; Resp 18; Pulse Ox 98% on R/A; ph 18:39 BP 138 / 71; Pulse 79; Resp 20; Pulse Ox 100% on R/A; ph 19:36 BP 159 / 70; Pulse 76; Resp 16; Pulse Ox 99% on R/A; jb4 15:35 Body Mass Index 22.50 (81.65 kg, 190.50 cm) ph Procedures: 17:56 Peripheral line: by aseptic technique a peripheral line was placed in the left external martin jugular vein. MDM: 15:37 Patient medically screened. martin 16:26 Differential Diagnosis altered mental status. Differential Diagnosis: cardiac martin arrhythmia, cerebrovascular accident, emotional response, GI bleed, idiopathic syncope, transient ischemic attack, vasovagal episode. Data reviewed: vital signs, nurses notes, lab test result(s), EKG, radiologic studies, CT scan, plain films. Data interpreted: awake overnight monitor: rate is 72 beats/min, rhythm is regular, Pulse oximetry: on room air is 98 %. Interpretation: acceptable. Test interpretation: by ED physician or midlevel provider: ECG, plain radiologic studies. Counseling: I had a detailed discussion with the patient and/or guardian regarding: the historical points, exam findings, and any diagnostic results supporting the discharge/admit diagnosis, lab results, radiology results. 10/21 15:39 Order name: Basic Metabolic Panel; Complete Time: 19:22 [facility] 10/21 15:39 Order name: CBC with Diff; Complete Time: 17:07 [facility] 10/21 15:39 Order name: LFT's; Complete Time: 19:22 [facility] 10/21 15:39 Order name: Magnesium; Complete Time: 19:22 [facility] 10/21 15:39 Order name: NT PRO-BNP; Complete Time: 19:22 [facility] 10/21 15:39 Order name: PT-INR; Complete Time: 18:59 [facility] 10/21 15:39 Order name: Troponin HS; Complete Time: 19:22 [facility] 10/21 15:39 Order name: Acetaminophen; Complete Time: 19:22 [facility] 10/21 15:39 Order name: ETOH Level; Complete Time: 19:22 [facility] 10/21 15:39 Order name: Ptt, Activated; Complete Time: 18:59 [facility] 10/21 15:39 Order name: Salicylate; Complete Time: 19:22 [facility] 10/21 15:39 Order name: Urine Drug Screen; Complete Time: 16:58 [facility] 10/21 15:39 Order name: SARS RAPID; Complete Time: 18:20 [facility] 10/21 16:34 Order name: Urine Dipstick-Ancillary; Complete Time: 16:58 [facility] 10/21 15:39 Order name: XRAY Chest (1 view); Complete Time: 16:20 [facility] 10/21 15:39 Order name: EKG; Complete Time: 15:40 [facility] 10/21 15:39 Order name: Cardiac monitoring; Complete Time: 15:51 [facility] 10/21 15:39 Order name: EKG - Nurse/Tech; Complete Time: 15:51 [facility] 10/21 15:39 Order name: IV Saline Lock; Complete Time: 17:08 [facility] 10/21 15:39 Order name: Labs collected and sent; Complete Time: 17:08 [facility] 10/21 15:39 Order name: O2 Per Protocol; Complete Time: 15:51 [facility] 10/21 15:39 Order name: O2 Sat Monitoring; Complete Time: 15:51 [facility] 10/21 15:39 Order name: Urine Dipstick-Ancillary (obtain specimen); Complete Time: 17:57 [facility] 10/21 15:39 Order name: CT Head Brain wo Cont martin 10/21 15:44 Order name: Head Brain Wo Cont; Complete Time: 17:07 [facility]MS 10/21 17:53 Order name: Diet Regular; Complete Time: 17:54 martin 10/21 17:45 Order name: Labs - recollect needed: recollect green,blue and lavender top; Complete bd Time: 17:57 EC:28 Rate is 71 beats/min. Rhythm is regular. QRS [place] is Normal. [place] interval is normal. QRS martin interval is normal. QT interval is normal. No Q waves. T waves are Normal. No ST changes noted. Clinical impression: NSR w/ Non-specific ST/T Changes and No evidence of ischemia. Interpreted by me. Reviewed by me. Administered Medications: 18:25 Drug: NS 0.9% 500 ml Route: IV; Rate: bolus; Site: left jugular; ss 18:26 Drug: NS 0.9% 500 ml Route: IV; Rate: bolus; Site: left jugular; ss 19:12 Follow up: Response: No adverse reaction; IV Status: Completed infusion; IV Intake: ph 500ml 19:31 Not Given (Pt dischargedd): NS 0.9% 1000 ml IV at 125 ml/hr continuous jb4 Disposition Summary: 10/21/21 19:22 Discharge Ordered Location: Home martin Problem: new martin Symptoms: have improved martin Condition: Stable martin Diagnosis - Weakness martin - Cocaine abuse martin Followup: martin - With: Private Physician - When: 2 - 3 days - Reason: Recheck today's complaints, Continuance of care, Re-evaluation by your physician Discharge Instructions: - Discharge Summary Sheet martin - Cocaine Use Disorder martin - Substance Use Disorder martin - Weakness martin - Fatigue martin - Weakness, [id number] martin - Deconditioning martin Forms: - Medication Reconciliation Form martin - Thank You Letter martin - Antibiotic Education martin - Prescription Opioid Use martin Signatures: 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 martin ph
[2021-10-21 20:36] VITALS: TEMP 98.7
[2021-10-21 21:01] VITALS: BP 159/70; O2SAT 99
--- NOTE | 2021-10-22 07:54 | EKG ---
Test Date: 2021-10-21 Test Time: 15:53:34 Confidential Secretary: REKHA MEASUREMENT RESULTS: Intervals: Rate: 71 DC: 190 QRSD: 82 QT: 376 QTc: 408 [place]: P: 45 DC: 190 QRS: 90 T: 52 INTERPRETIVE STATEMENTS: Normal sinus rhythm Rightward axis Borderline ECG Compared to ECG 06/18/2020 20:54:27 Right-axis deviation now present Electronically Signed On 10-22-21 07:52:34 CDT by Rocco Menjivar
== END 2021-10-21 19:45 | disposition home or self-care (01) ==
LOC: ER 15:29
PROC: 05HQ33Z Insertion of Infusion Device into Left External Jugular Vein, Percutaneous Approach (ICD-10-PCS; principal; 2021-10-21)
DX: R53.1 Weakness (principal); F14.10 Cocaine abuse, uncomplicated; Z20.822 Contact with and (suspected) exposure to COVID-19
CPT/HCPCS: 93005; 85025; 80048; 36415; 80320; 83735; 80329 ×2; 85610; 80076; 85730; 81003; 84484; 83880; 80307; 70450; 71045; 96360; 99284; 87811; 36569; J7030

== ENCOUNTER 2021-11-08 10:10 | Emergency (ER) | payer OTHER ==
--- OUTSIDE RECORDS SUMMARY | 2021-11-08 10:17 | XMS REPORT | Continuity of Care Document ---
:1935 Author Organization [facility] t Address [address] [place] [address] Support Name Relationship Address Phone MD MARGARITO Emergency Provider [address] [phone] [place] [address] PHYSICIAN, NO Primary Care Physician Unavailable Unavailab BRAD Kapoor Family Member [address] [place] [address] LEIDY PASTRANA Primary Care Physician [address] [facility] [phone] [place] [address] MD ISAMAR VIVEK Emergency Provider Unavailable Unavailable MD CANDACE GUERRA A Emergency Provider [facility] [place] [address] BRAD RIVAS Family Member [address] [place] [address] MD [facility] Ad[facility] Provider [address] [place] [address] MD JAVAN NASCIMENTO JR Admitting Provider [address] [place] [address] MD RILEY MIDLAND Emergency Provider [email or web address] [email or web address] [address] MD JENNIFER Emergency Provider [address] [place] [address] MD BEVERLEY SEGAL Emergency Provider [address] [place] [address] MD CLAUDIA HERRING Emergency Provider [address] [phone] [place] [address] MD CINDY SCHWARZ Emergency Provider [address] [place] [address] MD SENTHIL TERRY Emergency Provider [address] [place] [address] MD JIGNESH DAWSON Emergency Provider [address] [phone] [place] [address] Care Team Providers Name Role Phone Felipe Lipscomb Primary Care Physician [phone] [place] Attending Clinician Unavailable Taqueria Correa MD Attending Clinician TAQUERIA CORREA Attending Clinician Unavailable Josefa Soria DO Attending Clinician JOSEFA SORIA Attending Clinician Unavailable [place] Admitting Clinician Unavailable JOSEFA SORIA Admitting Clinician Unavailable Payers Payer Name Policy Type Policy Number Effective Date Expiration Date Gaviota petit [place]: [id number] 2002 [employer] 00:00:00 [place] [employer] [id number] 2019 [facility] (MEDICAID 00:00:00 HMO) Problems Condition Condition Condition Status Onset Resolution Last Treating Co mments Source Name Details Category Date Date Treatment Clinician Date Head Head Disease Active 2013-03 Univers injury, injury, 0-15 ity of acute, acute, 00:00: [place] initial initial 00 Medical encounter encounter Bran ch Skull Skull Disease Active Overview: Univer s fracture fracture 10-31 Formattin ity of 00:00: g of this [place] 00 note Medical might be Branch different from the original. 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 8-19 ity of fracture fracture 00:00: [place] 00 Medical Branch Zygomatic Zygomatic Disease Active Uni vers fracture fracture 8-19 ity of 00:00: [place] 00 Medical Branch Ulna Ulna Disease Active Univers fracture, fracture, 819 ity of left, left, 00:00: [place] closed, closed, 00 Medical initial initial Branch encounter encounter Traumatic Traumatic Disease Active Uni vers brain brain 8-19 ity of injury injury 00:00: [place] 00 Medical Branch Allergies, Adverse Reactions, Alerts Allergy Allergy Status Severity Reaction(s) Onset Inactive Treating Comm ents Source Name Type Date Date Clinician NO KNOWN Drug Active Univers ALLERGIE Class ity of S [facility] [place] [facility] Social History Social Habit Start Date Stop Date Quantity Comments Source History of tobacco 1954-10-13 Cigar Smoker Univ ersity of use 00:00:00 [facility] [place] [facility] Exposure to Unable to assess Univers ity of SARS-CoV-2 (event) [facility] [place] [facility] Cigarettes smoked 2020-08-31 2020-08-31 Univers ity of current (pack per 00:00:00 00:00:00 [facility] ) - Reported Branch Cigarette 2020-08-31 2020-08-31 University of pack-years 00:00:00 00:00:00 [facility] [place] [facility] Alcohol intake 2020-08-31 2020-08-31 Current drinker Unive rsity of 00:00:00 00:00:00 of alcohol [facility] (finding) Branch Tobacco use and 2020-08-31 2020-08-31 Never used Universit y of exposure 00:00:00 00:00:00 [facility] [place] [facility] Sex Ass[birth year] At [birth year] Universit y of 00:00:00 00:00:00 [facility] [place] [facility] Smoking Status Start Date Stop Date Source Current every day smoker 2020-08-31 00:00:00 Uni versity of [facility] [place] [facility] Medications Ordered Filled Start Stop Current Ordering Indication Dosage Frequency Signature Comments Components Source Medication Medication Date Date Medication? Clinician (SIG) Name Name DICLOFENAC No [address] 8-23 75 MG TBEC 00:00: 00 DICLOFENAC 2021-[address] 8-23 75 MG TBEC 00:00: 00 TAKE 1 2021-0 No 300 CAPSULE BY 7-20 MOUTH TWICE 00:00: A DAY FOR 00 PNEUMONIA TAKE 1 2021-0 No 300 CAPSULE BY 7-20 MOUTH TWICE 00:00: A DAY FOR 00 PNEUMONIA Dose 2021-0 No 20 Unknown 7-18 00:00: 00 &lt 2021-0 No 7-18 00:00: 00 Dose 2021-0 No 20 Unknown 7-18 00:00: 00 &lt 2021-0 No 7-18 00:00: 00 diclofenac 2021-0 No 2% 3 % topical 7-13 gel 00:00: 00 lidocaine 5 2022-0 No 1% % topical 7-13 patch 00:00: 00 diclofenac 2-0 No 1mg sodium 75 7-13 mg 00:00: tablet,era 00 yed release Vitamin D3 2-0 No 1(1,000 25 mcg 7-13 unit) (1,000 00:00: unit) 00 capsule &lt 2-0 No 300 7-13 00:00: 00 INHALE 2 2-0 No PUFFS BY 7-13 MOUTH EVERY 00:00: 4 TO 6 00 HOURS FOR WHEEZING / SHORTNESS OF BREATH TAKE 1 2-0 No 20 CAPSULE BY 7-13 MOUTH DAILY 00:00: FOR 00 GASTRITIS Dose 2-0 No 300 Unknown 7-13 00:00: 00 TAKE 1 2-0 No 600 TABLET BY 7-13 MOUTH EVERY 00:00: 6 HOURS 00 NEEDED FOR PAIN diclofenac 2-0 No 2% 3 % topical 7-13 gel 00:00: 00 lidocaine 5 2-0 No 1% % topical 7-13 patch 00:00: 00 diclofenac 2-0 No 1mg sodium 75 7-13 mg 00:00: tablet,era 00 yed release Vitamin D3 2-0 No 1(1,000 25 mcg 7-13 unit) (1,000 00:00: unit) 00 capsule &lt 2021-0 No 300 7-13 00:00: 00 INHALE 2 2-0 No PUFFS BY 7-13 MOUTH EVERY 00:00: 4 TO 6 00 HOURS FOR WHEEZING / SHORTNESS OF BREATH TAKE 1 2021-0 No 20 CAPSULE BY 7-13 MOUTH DAILY 00:00: FOR 00 GASTRITIS Dose 2-0 No 300 Unknown 7-13 00:00: 00 TAKE 1 2-0 No 600 TABLET BY 7-13 MOUTH EVERY 00:00: 6 HOURS 00 NEEDED FOR PAIN diclofenac 2-0 No 2% 3 % topical 7-13 gel 00:00: 00 lidocaine 5 2-0 No 1% % topical 7-13 patch 00:00: 00 diclofenac 2022-0 No 1mg sodium 75 7-13 mg 00:00: tablet,era 00 yed release Vitamin D3 2-0 No 1(1,000 25 mcg 7-13 unit) (1,000 00:00: unit) 00 capsule &lt 2021-0 No 300 7-13 00:00: 00 INHALE 2 2021-0 No PUFFS BY 7-13 MOUTH EVERY 00:00: 4 TO 6 00 HOURS FOR WHEEZING / SHORTNESS OF BREATH TAKE 1 2021-0 No 20 CAPSULE BY 7-13 MOUTH DAILY 00:00: FOR 00 GASTRITIS Dose 2021-0 No 300 Unknown 09-24 00:00: 00 TAKE 1 2021-0 No 600 TABLET BY 7-13 MOUTH EVERY 00:00: 6 HOURS 00 NEEDED FOR PAIN Vitamin D3 2020-0 No 1(1,000 25 mcg 7-12 unit) (1,000 00:00: unit) 00 capsule Vitamin D3 2020-0 No 1(1,000 25 mcg 7-12 unit) (1,000 00:00: unit) 00 capsule Vitamin D3 2020-0 No 1(1,000 25 mcg 7-12 unit) (1,000 00:00: unit) 00 capsule lidocaine 5 2020-0 No 1% % topical 7-08 patch 00:00: 00 ibuprofen 1-0 No 1mg 600 mg 7-08 tablet 00:00: 00 lidocaine 5 2020-0 No 1% % topical 7-08 patch 00:00: 00 ibuprofen 1-0 No 1mg 600 mg 7-08 tablet 00:00: 00 lidocaine 5 1-0 No 1% % topical 7-08 patch 00:00: 00 ibuprofen 1-0 No 1mg 600 mg 7-08 tablet 00:00: 00 permethrin 1-0 No % 5 % topical 6-22 cream 00:00: 00 ibuprofen 1-0 No 1mg 800 mg 6-22 tablet 00:00: 00 permethrin 2021-0 No % 5 % topical 6-22 cream 00:00: 00 ibuprofen 2021-0 No 1mg 800 mg 6-22 tablet 00:00: 00 permethrin 2021-0 No % 5 % topical 6-22 cream 00:00: 00 ibuprofen 2021-0 No 1mg 800 mg 6-22 tablet 00:00: 00 ketorolac 1-0 2021- No 15mg 15 mg, Unive rs (TORADOL) 09-01 06-20 Slow IV ity of injection 06:45: 06:00 Push, [place] 15 mg 00 :00 ONCE, 1 Medical dose, Sun Branch 09/01/20 at 0145, Routine
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 Restricted medication : TAQUERIA CORREA iopamidol 2020- No [id number] 100mL 100 mL, Univers (ISOVUE 09-01-20 Intravenou ity o f 370-500 mL) 05:15: 03:57 s, ONCE, 1 [place] injection 00 :00 dose, Sun Medic al 100 mL 09/01/20 at Branch 0015, Routine NaCl 0.9% 2020- No 500mL at 999 Univ ers (NS) bolus 09-01-20 mL/hr, 500 it y of infusion 04:00: 05:00 mL, IV [place] 500 mL 00 :00 Infusion, Medical ONCE, 1 Branch dose, 08/31/20 at 2300, STAT acetaminoph Yes [id number] 1{tbl} Take 1 Un cristo en-codeine 6-20 tablet by ity of (TYLENOL-CO 00:00: mouth [place] DEINE #3) 00 every 4 Medical 300-30 mg (four) Branch tablet hours as needed for Pain (scale 7-10). Indication s: acute pain sulfamethox 2020-0 No 1mg azole 800 6-02 mg-trimetho 00:00: prim 160 mg 00 tablet ibuprofen 2020-0 No 1mg 800 mg 6-02 tablet 00:00: 00 sulfamethox 1-0 No 1mg azole 800 6-02 mg-trimetho 00:00: prim 160 mg 00 tablet ibuprofen 2020-0 No 1mg 800 mg 6-02 tablet 00:00: 00 sulfamethox 1-0 No 1mg azole 800 6-02 mg-trimetho 00:00: prim 160 mg 00 tablet ibuprofen 2020-0 No 1mg 800 mg 6-02 tablet 00:00: 00 Augmentin 2021-0 No 1mg 875 mg-125 5-20 mg tablet 00:00: 00 Augmentin 2021-0 No 1mg 875 mg-125 5-20 mg tablet 00:00: 00 Augmentin 2021-0 No 1mg 875 mg-125 5-20 mg tablet 00:00: 00 ibuprofen 2021-0 No 1mg 800 mg 5-13 tablet 00:00: 00 ibuprofen 2021-0 No 1mg 800 mg 5-13 tablet 00:00: 00 ibuprofen 2021-0 No 1mg 800 mg 5-13 tablet 00:00: 00 ibuprofen 2021-0 No 1mg 800 mg 4-20 tablet 00:00: 00 ibuprofen 2021-0 No 1mg 800 mg 4-20 tablet 00:00: 00 ibuprofen 2021-0 No 1mg 800 mg 4-20 tablet 00:00: 00 lidocaine 5 2021-0 No 1% % topical 4-16 patch 00:00: 00 lidocaine 5 2021-0 No 1% % topical 4-16 patch 00:00: 00 lidocaine 5 2021-0 No 1% % topical 4-16 patch 00:00: 00 Caladryl 1 2021-0 No 1% %-8 % 4-01 lotion 00:00: 00 Caladryl 1 2021-0 No 1% %-8 % 4-01 lotion 00:00: 00 Caladryl 1 2021-0 No 1% %-8 % 4-01 lotion 00:00: 00 ibuprofen 2021-0 No 1mg 800 mg 3-30 tablet 00:00: 00 ibuprofen 2021-0 No 1mg 800 mg 3-30 tablet 00:00: 00 ibuprofen 2021-0 No 1mg 800 mg 3-30 tablet 00:00: 00 Compound W 2021-0 No 1% 17 % 3-23 topical gel 00:00: 00 Compound W 2021-0 No 1% 17 % 3-23 topical gel 00:00: 00 Compound W 2021-0 No 1% 17 % 3-23 topical gel 00:00: 00 Compound W 2021-0 No 1% 17 % 3-18 topical gel 00:00: 00 Compound W 2021-0 No 1% 17 % 3-18 topical gel 00:00: 00 Compound W 2021-0 No 1% 17 % 3-18 topical gel 00:00: 00 lidocaine 5 2021-0 No 1% % topical 3-04 patch 00:00: 00 Vitamin D3 2021-0 No 1(1,000 25 mcg 3-04 unit) (1,000 00:00: unit) 00 capsule lidocaine 5 2021-0 No 1% % topical 3-04 patch 00:00: 00 Vitamin D3 2021-0 No 1(1,000 25 mcg 3-04 unit) (1,000 00:00: unit) 00 capsule lidocaine 5 2020-0 No 1% % topical 3-04 patch 00:00: 00 Vitamin D3 2020-0 No 1(1,000 25 mcg 3-04 unit) (1,000 00:00: unit) 00 capsule Vitamin D3 2020-0 No 1(1,000 25 mcg 3-01 unit) (1,000 00:00: unit) 00 capsule Vitamin D3 2020-0 No 1(1,000 25 mcg 3-01 unit) (1,000 00:00: unit) 00 capsule Vitamin D3 2020-0 No 1(1,000 25 mcg 3-01 unit) (1,000 00:00: unit) 00 capsule cephalexin 2020-0 No 1mg 500 mg 2-26 tablet 00:00: 00 cephalexin 2020-0 No 1mg 500 mg 2-26 tablet 00:00: 00 cephalexin 2020-0 No 1mg 500 mg 2-26 tablet 00:00: 00 ibuprofen 1-0 No 1mg 400 mg 1-14 tablet 00:00: 00 ibuprofen 1-0 No 1mg 400 mg 1-14 tablet 00:00: 00 ibuprofen 1-0 No 1mg 400 mg 1-14 tablet 00:00: 00 meloxicam 2020-1 No 1mg 7.5 mg 2-05 tablet 00:00: 00 gabapentin 2020-1 No 1mg 100 mg 2-05 capsule 00:00: 00 meloxicam 2020-1 No 1mg 7.5 mg 2-05 tablet 00:00: 00 gabapentin 2020-1 No 1mg 100 mg 2-05 capsule 00:00: 00 meloxicam 2020-1 No 1mg 7.5 mg 2-05 tablet 00:00: 00 gabapentin 2020-1 No 1mg 100 mg 2-05 capsule 00:00: 00 Pepcid 20 2019-1 No 1mg mg tablet -28 00:00: 00 Pepcid 20 2019-1 No 1mg mg tablet -28 00:00: 00 Pepcid 20 2019-1 No 1mg mg tablet -28 00:00: 00 mupirocin 2 2019-1 No 1% % topical 1-18 ointment 00:00: 00 bisacodyl 5 2019-1 No 1mg mg 1-18 tablet,era 00:00: yed release 00 sulfamethox 2020-1 No 1mg azole 800 1-18 mg-trimetho 00:00: prim 160 mg 00 tablet mupirocin 2 2020-1 No 1% % topical 1-18 ointment 00:00: 00 bisacodyl 5 2020-1 No 1mg mg 1-18 tablet,era 00:00: yed release 00 sulfamethox 2020-1 No 1mg azole 800 1-18 mg-trimetho 00:00: prim 160 mg 00 tablet mupirocin 2 2019-1 No 1% % topical 1-18 ointment 00:00: 00 bisacodyl 5 2020-1 No 1mg mg 1-18 tablet,era 00:00: yed release 00 sulfamethox 2020-1 No 1mg azole 800 1-18 mg-trimetho 00:00: prim 160 mg 00 tablet lidocaine 5 2020-1 No 1% % topical 1-16 patch 00:00: 00 lidocaine 5 2020-1 No 1% % topical 1-16 patch 00:00: 00 lidocaine 5 2020-1 No 1% % topical 1-16 patch 00:00: 00 lidocaine 5 2020-0 No 1% % topical 9-08 patch 00:00: 00 lidocaine 5 2020-0 No 1% % topical 9-08 patch 00:00: 00 lidocaine 5 2020-0 No 1% % topical 9-08 patch 00:00: 00 lidocaine 5 2020-0 No 1% % topical 9-08 patch 00:00: 00 lidocaine 5 2020-0 No 1% % topical 9-08 patch 00:00: 00 lidocaine 5 2020-0 No 1% % topical 9-08 patch 00:00: 00 lidocaine 5 2020-0 No 1% % topical 8-17 patch 00:00: 00 lidocaine 5 2020-0 No 1% % topical 8-17 patch 00:00: 00 lidocaine 5 2020-0 No 1% % topical 8-17 patch 00:00: 00 gabapentin 2020-0 No 1mg 100 mg 7-22 capsule 00:00: 00 lidocaine 5 2020-0 No 1% % topical 7-22 patch 00:00: 00 meloxicam 2020-0 No 1mg 7.5 mg 7-22 tablet 00:00: 00 diclofenac 2020-0 No 1mg sodium 75 7-22 mg 00:00: tablet,era 00 yed release tramadol 50 2020-0 No 1mg mg tablet 10-03 00:00: 00 gabapentin 2020-0 No 1mg 100 mg 7-22 capsule 00:00: 00 lidocaine 5 2020-0 No 1% % topical 7-22 patch 00:00: 00 meloxicam 2020-0 No 1mg 7.5 mg 7-22 tablet 00:00: 00 diclofenac 2020-0 No 1mg sodium 75 7-22 mg 00:00: tablet,era 00 yed release tramadol 50 2020-0 No 1mg mg tablet 10-03 00:00: 00 gabapentin 2020-0 No 1mg 100 mg 7-22 capsule 00:00: 00 lidocaine 5 2020-0 No 1% % topical 7-22 patch 00:00: 00 meloxicam 2020-0 No 1mg 7.5 mg 7-22 tablet 00:00: 00 diclofenac 2020-0 No 1mg sodium 75 7-22 mg 00:00: tablet,era 00 yed release tramadol 50 2020-0 No 1mg mg tablet 10-03 00:00: 00 Lidoderm 5 2020-0 No 1% % topical 7-18 patch 00:00: 00 naproxen 2020-0 No 1mg 500 mg 7-18 tablet 00:00: 00 Lidoderm 5 2020-0 No 1% % topical 7-18 patch 00:00: 00 naproxen 2020-0 No 1mg 500 mg 7-18 tablet 00:00: 00 Lidoderm 5 2020-0 No 1% % topical 7-18 patch 00:00: 00 naproxen 2020-0 No 1mg 500 mg 7-18 tablet 00:00: 00 ondansetron 2019-0 2019- No 4mg 4 mg, Slow Univers (ZOFRAN 04-13 IV Push, ity of (PF)) 17:15: 16:27 ONCE, 1 [place] injection 4 00 :00 dose, Roxana Med ical mg 04/13/19 at Branch 1115, RYLEY NaCl 0.9% 2020- No 1000mL at 999 Uni vers (NS) bolus 04-13-30 mL/hr, ity of infusion 16:15: 18:40 1,000 mL, [place] as 1,000 mL 00 :00 IV Medical Infusion, Branch ONCE, 1 dose, Roxana 04/13/19 at 1015, RYLEY ondansetron 2019-0 Yes [id number] 4mg Take 1 Univers (ZOFRAN 1-30 tablet by ity of ODT) 4 mg 00:00: mouth [place] disintegrat 00 every 8 Medic al ing tablet (eight) Branch hours as needed for Nausea and Vomiting (N/V). ondansetron 2019-0 Yes [id number] 4mg Take 1 Univers (ZOFRAN 1-30 tablet by ity of ODT) 4 mg 00:00: mouth [place] disintegrat 00 every 8 Medic al ing tablet (eight) Branch hours as needed for Nausea and Vomiting (N/V). ibuprofen 2015-03 No 1mg 600 mg 2-19 tablet 00:00: 00 ibuprofen 2015-03 No 1mg 600 mg 2-19 tablet 00:00: 00 ibuprofen 2015-03 No 1mg 600 mg 2-19 tablet 00:00: 00 acetaminoph 2013-03 Yes 1{tbl} Take 1 Tab Univers en-codeine 0-17 by mouth ity o f (TYLENOL 00:00: every 4 [place] #3) 300-30 00 (four) Medical mg tablet hours as Branch needed for Pain (scale 4-6). docusate 2013-03 Yes 100mg Take 1 Cap Un cristo (COLACE) 0-17 by mouth ity of 100 mg 00:00: daily. [place] capsule 00 Medical Branch levETIRAcet 2013-03 Yes 500mg Take 1 Tab Univers am (KEPPRA) 0-17 by mouth 2 it y of 500 mg 00:00: (two) [place] tablet 00 times Medical daily. Branch acetaminoph 2013-03 Yes 1{tbl} Take 1 Tab Univers en-codeine 0-17 by mouth ity o f (TYLENOL 00:00: every 4 [place] #3) 300-30 00 (four) Medical mg tablet hours as Branch needed for Pain (scale 4-6). docusate 2013-03 Yes 100mg Take 1 Cap Un cristo (COLACE) 0-17 by mouth ity of 100 mg 00:00: daily. [place] capsule 00 Medical Branch levETIRAcet 2013-03 Yes 500mg Take 1 Tab Univers am (KEPPRA) 0-17 by mouth 2 it y of 500 mg 00:00: (two) [place] tablet 00 times Medical daily. Branch artificial Yes 2[drp] Place 2 Un cristo tears,hypro 8-25 Drops in ity of mellose, 00:00: [place] eyes [place] (ISOPTO-TEA 00 4 (four) Medi tobin RS) 0.5 % times Branch ophthalmic daily. drops cephALEXin Yes 500mg Take 1 Cap Univers (KEFLEX) 8-25 by mouth 4 ity o f 500 mg 00:00: (four) [place] capsule 00 times Medical daily. Branch HYDROcodone Yes 1{tbl} Take 1 Tab Univers -acetaminop 8-25 by mouth ity of hen (NORCO 00:00: every 4 [place] 5) 5-325 mg 00 (four) Medica l tablet hours as Branch needed for Pain unrelieved by non-narcot ic analgesics . ibuprofen Yes 600mg Take 1 Tab U nivers (MOTRIN) 8-25 by mouth ity of 600 mg 00:00: every 6 [place] tablet 00 (six) Medical hours as Branch needed for Pain (scale 1-3) or Pain (scale 4-6). artificial Yes 2[drp] Place 2 Un cristo tears,hypro 8-25 Drops in ity of mellose, 00:00: both eyes [place] (ISOPTO-TEA 00 4 (four) Medi tobin RS) 0.5 % times Branch ophthalmic daily. drops cephALEXin Yes 500mg Take 1 Cap Univers (KEFLEX) 8-25 by mouth 4 ity o f 500 mg 00:00: (four) [place] capsule 00 times Medical daily. Branch HYDROcodone Yes 1{tbl} Take 1 Tab Univers -acetaminop 8-25 by mouth ity of hen (NORCO 00:00: every 4 [place] 5) 5-325 mg 00 (four) Medica l tablet hours as Branch needed for Pain unrelieved by non-narcot ic analgesics . ibuprofen Yes 600mg Take 1 Tab U nivers (MOTRIN) 8-25 by mouth ity of 600 mg 00:00: every 6 [place] tablet 00 (six) Medical hours as Branch needed for Pain (scale 1-3) or Pain (scale 4-6). Immunizations Ordered Filled Immunization Date Status Comments [facility] Immunization Name Name Tdap 2020-08-01 Completed 00:00:00 Tdap 2020-08-01 Completed 00:00:00 Tdap 2020-08-01 Completed 00:00:00 SARS-COV-2 COVID-19 2020-07-06 Completed Unive rsity of PFIZER VACCINE 00:00:00 [facility] Branch Influenza, 2020-01-29 Completed seasonal, inj 00:00:00 Pneumococcal 2020-01-29 Completed conjugate P 00:00:00 Influenza, 2020-01-29 Completed seasonal, inj 00:00:00 Pneumococcal 2020-01-29 Completed conjugate P 00:00:00 Influenza, 2020-01-29 Completed seasonal, inj 00:00:00 Pneumococcal 2020-01-29 Completed conjugate P 00:00:00 Vital Signs Vital Name Observation Time Observation Value Comments Source Systolic blood 2020-09-01 06:00:00 164 mm[Hg] Univer sity of pressure [facility] [place] [facility] Diastolic blood 2020-09-01 06:00:00 89 mm[Hg] Unive rsity of [facility] Heart rate 2020-09-01 06:00:00 62 /min General acute hospital Respiratory rate 2020-09-01 06:00:00 17 /min [facility] in 2020-09-01 06:00:00 97 /min University of Arterial blood by [facility] Pulse oximetry Branch Body temperature 2020-09-01 04:13:[address] [facility] Body height 2020-09-01 02:01:00 185.4 cm General acute hospital Body weight 2020-09-01 02:01:00 72.576 kg General acute hospital BMI 2020-09-01 02:01:00 21.11 kg/m2 General acute hospital Systolic blood 2019-04-13 19:00:00 123 mm[Hg] Univer sity of [facility] Diastolic blood 2019-04-13 19:00:00 70 mm[Hg] Unive rsity of pressure [facility] [place] [facility] Heart rate 2019-04-13 19:00:00 81 /min General acute hospital Respiratory rate 2019-04-13 19:00:00 15 /min Univ ersity [facility] Oxygen saturation in 2019-04-13 19:00:00 95 /min University of Arterial blood by [facility] Pulse oximetry Branch Body temperature 2019-04-13 15:48:00 36.61 Nyla [facility] Body weight 2019-04-13 15:48:00 72.576 kg General acute hospital BMI 2019-04-13 15:48:00 20.00 kg/m2 General acute hospital BP Systolic 2021-11-04 09:12:00 148 mm[Hg] BP Diastolic 2021-11-04 09:12:00 90 mm[Hg] Weight Measured 2021-11-04 09:12:00 150.20 pounds Height Measured 2021-11-04 09:12:00 66.00 inches Body Temperature 2021-11-04 09:12:00 98.50 degrees Heart Rate 2021-11-04 09:12:00 69.00 /min Respiratory Rate 2021-11-04 09:12:00 20.00 /min BP Systolic 2021-10-17 17:09:00 148 mm[Hg] BP Diastolic 2021-10-17 17:09:00 85 mm[Hg] Weight Measured 2021-10-17 17:09:00 162.00 pounds Height Measured 2021-10-17 17:09:00 66.00 inches Body Temperature 2021-10-17 17:09:00 98.20 degrees Heart Rate 2021-10-17 17:09:00 98.00 /min Respiratory Rate 2021-10-17 17:09:00 22.00 /min BP Systolic 2021-09-24 13:04:00 135 mm[Hg] BP Diastolic 2021-09-24 13:04:00 78 mm[Hg] Weight Measured 2021-09-24 13:04:00 160.00 pounds Height Measured 2021-09-24 13:04:00 66.00 inches Body Temperature 2021-09-24 13:04:00 97.60 degrees Heart Rate 2021-09-24 13:04:00 98.00 /min Respiratory Rate 2021-09-24 13:04:00 25.00 /min BP Systolic 2020-09-19 15:17:00 110 mm[Hg] BP Diastolic 2020-09-19 15:17:00 62 mm[Hg] Weight Measured 2020-09-19 15:17:00 165.00 pounds Height Measured 2020-09-19 15:17:00 66.00 inches Body Temperature 2020-09-19 15:17:00 Heart Rate 2020-09-19 15:17:00 87.00 /min Respiratory Rate 2020-09-19 15:17:00 BP Systolic 2020-08-20 15:24:00 153 mm[Hg] BP Diastolic 2020-08-20 15:24:00 91 mm[Hg] Weight Measured 2020-08-20 15:24:00 165.40 pounds Height Measured 2020-08-20 15:24:00 66.00 inches Body Temperature 2020-08-20 15:24:00 98.20 degrees Heart Rate 2020-08-20 15:24:00 109.00 /min Respiratory Rate 2020-08-20 15:24:00 17.00 /min BP Systolic 2020-08-14 09:30:00 131 mm[Hg] BP Diastolic 2020-08-14 09:30:00 71 mm[Hg] Weight Measured 2020-08-14 09:30:00 164.20 pounds Height Measured 2020-08-14 09:30:00 66.00 inches Body Temperature 2020-08-14 09:30:00 98.40 degrees Heart Rate 2020-08-14 09:30:00 73.00 /min Respiratory Rate 2020-08-14 09:30:00 16.00 /min BP Systolic 2020-08-01 10:44:00 153 mm[Hg] BP Diastolic 2020-08-01 10:44:00 77 mm[Hg] Weight Measured 2020-08-01 10:44:00 163.60 pounds Height Measured 2020-08-01 10:44:00 66.00 inches Body Temperature 2020-08-01 10:44:00 99.10 degrees Heart Rate 2020-08-01 10:44:00 85.00 /min Respiratory Rate 2020-08-01 10:44:00 18.00 /min BP Diastolic 2020-07-25 09:46:00 75 mm[Hg] Weight Measured 2020-07-25 09:46:00 160.80 pounds Height Measured 2020-07-25 09:46:00 66.00 inches Body Temperature 2020-07-25 09:46:00 98.10 degrees Heart Rate 2020-07-25 09:46:00 85.00 /min Respiratory Rate 2020-07-25 09:46:00 17.00 /min BP Systolic 2020-07-25 09:46:00 133 mm[Hg] BP Systolic 2020-07-02 13:47:00 168 mm[Hg] BP Diastolic 2020-07-02 13:47:00 72 mm[Hg] Weight Measured 2020-07-02 13:47:00 163.20 pounds Height Measured 2020-07-02 13:47:00 66.00 inches Body Temperature 2020-07-02 13:47:00 98.10 degrees Heart Rate 2020-07-02 13:47:00 82.00 /min Respiratory Rate 2020-07-02 13:47:00 16.00 /min BP Systolic 2020-06-28 14:06:00 131 mm[Hg] BP Diastolic 2020-06-28 14:06:00 70 mm[Hg] Weight Measured 2020-06-28 14:06:00 164.00 pounds Height Measured 2020-06-28 14:06:00 66.00 inches Body Temperature 2020-06-28 14:06:00 97.90 degrees Heart Rate 2020-06-28 14:06:00 71.00 /min Respiratory Rate 2020-06-28 14:06:00 18.00 /min BP Systolic 2020-06-13 14:59:00 133 mm[Hg] BP Diastolic 2020-06-13 14:59:00 76 mm[Hg] Weight Measured 2020-06-13 14:59:00 163.80 pounds Height Measured 2020-06-13 14:59:00 66.00 inches Body Temperature 2020-06-13 14:59:00 97.50 degrees Heart Rate 2020-06-13 14:59:00 84.00 /min Respiratory Rate 2020-06-13 14:59:00 17.00 /min BP Systolic 2020-06-11 10:03:00 138 mm[Hg] BP Diastolic 2020-06-11 10:03:00 70 mm[Hg] Weight Measured 2020-06-11 10:03:00 154.20 pounds Height Measured 2020-06-11 10:03:00 66.00 inches Body Temperature 2020-06-11 10:03:00 98.40 degrees Heart Rate 2020-06-11 10:03:00 88.00 /min Respiratory Rate 2020-06-11 10:03:00 17.00 /min Procedures Procedure Date / Time Performing Clinician Source Performed CT ABDOMEN PELVIS W 2020-09-01 04:02:56 Taqueria Correa [facility] CT HEAD WO CONTRAST 2020-09-01 03:52:46 Taqueria Correa [facility] COVID-19 (ID NOW RAPID 2020-09-01 03:19:00 Taqueria Correa [facility] TESTING) Medical Branch CREATINE KINASE 2020-09-01 02:29:00 Taqueria Correa [facility] LIPASE 2020-09-01 02:29:00 Taqueria Correa [facility] MAGNESIUM 2020-09-01 02:29:00 Taqueria Correa [facility] TROPONIN I 2020-09-01 02:29:00 Taqueria Correa [facility] COMP. METABOLIC PANEL 2020-09-01 02:29:00 Taqueria Correa [facility] ([id number]) [facility] CBC WITH DIFF 2020-09-01 02:29:00 Taqueria Correa [facility] URINALYSIS 2020-09-01 02:23:00 Taqueria Correa [facility] XR CHEST 1 VW 2020-09-01 02:20:38 Taqueria Correa [facility] CT ABDOMEN PELVIS WO 2019-04-13 19:14:59 Josefa Soria [facility] LIPASE 2019-04-13 17:45:00 Josefa Soria [facility] TROPONIN I 2019-04-13 17:45:00 Josefa Soria [facility] HEPATIC FUNCTION PANEL 2019-04-13 17:45:00 Josefa Soria [facility] ([id number]) (ALB,T.PRO,BILI [facility] T,BU/BC,ALT,AST,ALK PHOS) BASIC METABOLIC PANEL 2019-04-13 17:45:00 Josefa Soria [facility] (NA, K, CL, CO2, Medical Branch GLUCOSE, BUN, CREATININE, CA) XR CHEST 1 VW 2019-04-13 16:27:33 Josefa Soria [facility] CBC WITH DIFFERENTIAL 2019-04-13 16:18:00 Josefa Soria [facility] EKG-12 LEAD 2019-04-13 16:00:50 Josefa Soria [facility] Plan of Care Planned Activity Planned Date Details Comments Source Goal Plan of Care Note [code = 16838-4] Goal Plan of Care Note [code = 93807-2] Goal Plan of Care Note [code = 23087-7] Goal Plan of Care Note [code = 14676-2] Goal Plan of Care Note [code = 40557-9] Goal Plan of Care Note [code = 48683-7] Goal Plan of Care Note [code = 01015-3] Goal Plan of Care Note [code = 50208-5] Goal Plan of Care Note [code = 24900-1] Goal Plan of Care Note [code = 22070-8] Goal Plan of Care Note [code = 58349-4] Goal Plan of Care Note [code = 81167-4] Goal Plan of Care Note [code = 68831-5] Goal Plan of Care Note [code = 18318-9] Goal Plan of Care Note [code = 68243-3] Goal Plan of Care Note [code = 50303-4] Goal Plan of Care Note [code = 29859-3] Goal Plan of Care Note [code = 56819-0] Goal Plan of Care Note [code = 48539-6] Goal Plan of Care Note [code = 99731-0] Goal Plan of Care Note [code = 16719-8] Goal Plan of Care Note [code = 57406-6] Goal Plan of Care Note [code = 19337-5] Goal Plan of Care Note [code = 81264-8] Goal Plan of Care Note [code = 15253-8] Goal Plan of Care Note [code = 40576-2] Goal Plan of Care Note [code = 18645-1] Goal Plan of Care Note [code = 07441-6] Goal Plan of Care Note [code = 12990-9] Goal Plan of Care Note [code = 46925-3] Goal Plan of Care Note [code = 58448-1] Goal Plan of Care Note [code = 47474-9] Goal Plan of Care Note [code = 02270-2] Goal Plan of Care Note [code = 41049-1] Goal Plan of Care Note [code = 75714-3] Goal Plan of Care Note [code = 02091-8] Goal Plan of Care Note [code = 13009-8] Goal Plan of Care Note [code = 19437-1] Goal Plan of Care Note [code = 23249-4] Goal Plan of Care Note [code = 71370-5] Goal Plan of Care Note [code = 58671-3] Goal Plan of Care Note [code = 76859-1] Goal Plan of Care Note [code = 60984-6] Goal Plan of Care Note [code = 29567-8] Goal Plan of Care Note [code = 78390-1] Goal Plan of Care Note [code = 11451-3] Goal Plan of Care Note [code = 54527-5] Goal Plan of Care Note [code = 66646-0] Goal Plan of Care Note [code = 21027-0] Goal Plan of Care Note [code = 10040-5] Goal Plan of Care Note [code = 13401-6] Goal Plan of Care Note [code = 11587-5] Goal Plan of Care Note [code = 97728-8] Goal Plan of Care Note [code = 31578-5] Goal Plan of Care Note [code = 39656-6] Goal Plan of Care Note [code = 82253-7] Goal Plan of Care Note [code = 94482-8] Goal Plan of Care Note [code = 77568-8] Goal Plan of Care Note [code = 67660-1] Goal Plan of Care Note [code = 38603-2] Goal Plan of Care Note [code = 41756-9] Goal Plan of Care Note [code = 48866-9] Goal Plan of Care Note [code = 76181-8] Goal Plan of Care Note [code = 64055-3] Goal Plan of Care Note [code = 53546-2] Goal Plan of Care Note [code = 65261-5] Goal Plan of Care Note [code = 27013-2] Goal Plan of Care Note [code = 97418-0] Goal Plan of Care Note [code = 14340-2] Goal Plan of Care Note [code = 22722-6] Goal Plan of Care Note [code = 12287-1] Goal Plan of Care Note [code = 17293-1] Goal Plan of Care Note [code = 74523-4] Goal Plan of Care Note [code = 90868-4] Goal Plan of Care Note [code = 12981-0] Goal Plan of Care Note [code = 51882-8] Goal Plan of Care Note [code = 95093-5] Goal Plan of Care Note [code = 23159-7] Goal Plan of Care Note [code = 12857-9] Goal Plan of Care Note [code = 45288-3] Goal Plan of Care Note [code = 18429-8] Goal Plan of Care Note [code = 51744-9] Goal Plan of Care Note [code = 61613-2] Goal Plan of Care Note [code = 01319-9] Goal Plan of Care Note [code = 76465-2] Goal Plan of Care Note [code = 16421-6] Goal Plan of Care Note [code = 13144-7] Goal Plan of Care Note [code = 35625-9] Goal Plan of Care Note [code = 37954-4] Goal Plan of Care Note [code = 39629-9] Goal Plan of Care Note [code = 04765-7] Goal Plan of Care Note [code = 88917-4] Goal Plan of Care Note [code = 40362-9] Goal Plan of Care Note [code = 93603-6] Goal Plan of Care Note [code = 46747-0] Goal Plan of Care Note [code = 04734-6] Goal Plan of Care Note [code = 81882-7] Goal Plan of Care Note [code = 19535-3] Goal Plan of Care Note [code = 91550-7] Goal Plan of Care Note [code = 90437-0] Encounters Start End Encounter Admission Attending Care Care Encounter Source Date/Time Date/Time Type Type Clinicians Facility Department ID 2021-11-04 2021-11-04 Outpatient [id number]-3 00:00:00 00:00:00 Visit 73q4-12r7 0e3-23l2-8 -9bfd-45c bfd-99l498 [id number] 2021-10-17 2021-10-17 Outpatient [id number] gm7829-2 00:00:00 00:00:00 Visit 36af-43ea 6af-43ea-9 -8l19-2k9 m03-4i4g18 [id number] b65d65 2021-09-24 2021-09-24 Outpatient [id number] ib12v7-m 00:00:00 00:00:00 Visit ebd4-4120 bd4-4120-8 -859f-c80 59f-c80cf7 co4oyy6b9 cde6a8 2020-12-04 2020-12-04 Outpatient Young_J [facility] [id number] 021 [place] 02:27:00 02:27:00 0922 [facility] 2020-12-03 2020-12-03 Outpatient Young_J [facility] [id number] 021 [place] 02:48:00 02:48:00 0921 [facility] 2020-08-31 2020-09-01 Emergency [facility] [id number] [facility] 20:50:00 03:00:00 Taqueria Morales 350.1.13.10 ity [facility] 4.2.7.2.6 [facility] [id number] [address] 2020-08-31 2020-08-31 Emergency X [facility] ERT [id number] [facility] 20:50:00 20:50:00 TAQUERIA moreno [facility] 2019-04-13 2019-04-13 Emergency [facility] [id number] [facility] 09:45:35 14:11:00 Josefa Morales 350.1.13.10 ity [facility] 4.2.7.2.686 [facility] [id number] [address] 2019-04-13 2019-04-13 Emergency X [facility] ERT [id number] [employer] 09:45:35 14:11:00 JOSEFA moreno [facility] Results Test Description Test Time Test Comments Results Result Comments Source VITAMIN D, 25 OH 2021-09-26 03:55:37 Test Item Value Reference Range Interpretation Comme nts VITAMIN D, 25 OH (test code 13 NG/ML SEE BELOW L NOTE: 25-HYDROXYVITAMIN D ASSAY = 4958) INCLUDES 25-HYD ROXYVITAMIN D2 AND D3. METHODOLOGY IS CHEMILUMINESCENT IMMUNOASSAY. INTERPRETIVE RANGES PED IATRIC (<17 YEARS) . . . . . . . . . . . NG/ML 20-100ADULT: INSUFFICIENT . . . . . . . . . . . . . . NG/ML <20 S UBOPTIMAL . . . . . . . . . . . . . . . NG/ML 20-29 OPTIMAL . . . . . . . . . . . . . . . . . NG/ML 30-100 VITAMIN D, 25 OH [ADDED]2021-09-26 00:00:00 Test Item Value Reference Range Interpretation Comments VITAMIN D, 25 OH (test code = 4958) 13 NG/ML VITAMIN D, 25 OH [ADDED]2021-09-26 00:00:00 Test Item Value Reference Range Interpretation Comments VITAMIN D, 25 OH (test code = 4958) 13 NG/ML VITAMIN D, 25 OH [ADDED]2021-09-26 00:00:00 Test Item Value Reference Range Interpretation Comments VITAMIN D, 25 OH (test code = 4958) 13 NG/ML VITAMIN D, 25 OH [ADDED]2021-09-26 00:00:00 Test Item Value Reference Range Interpretation Comments VITAMIN D, 25 OH (test code = 4958) 13 NG/ML TSH, THIRD [id number] 06:38:23 Test Item Value Reference Range Interpretation Comments TSH, THIRD GENERATION (test code 2.840 UIU/ML 0.400-4.100 = 2821) CBC W/AUTO DIFF WITH [id number] 04:49:57 Test Item Value Reference Range Interpretation Comments WBC (test code = 7.7 K/UL 3.5-11.0 1001) RBC (test code = 6.36 M/UL 4.50-6.10 H 1002) HEMOGLOBIN (test code 16.2 G/DL 13.5-17.0 = 1003) HEMATOCRIT (test code 47.8 % 40.0-51.0 = 1004) MCV (test code = 75.2 fL 80.0-99.0 L 1005) MCH (test code = 25.5 PG 25.0-33.0 1006) MCHC (test code = 33.9 G/DL 31.0-36.0 1007) RDW (test code = 17.6 % 11.5-15.0 H 1038) NEUTROPHILS (test 61.8 % code = 1008) LYMPHOCYTES (test 22.7 % code = 1010) MONOCYTES (test code 12.1 % = 1011) EOSINOPHILS (test 0.8 % code = 1012) BASOPHILS (test code 0.5 % = 1013) IMMATURE GRANULOCYTES 2.1 % (test code = 1036) NUCLEATED RBCS (test 0.0 /100 WBC'S See_Comment [Aut omated code = 1065) message] The sy stem which generated this result transmitted reference range : 0.0. The refere nce range was not u sed to interpret th is result as normal/abnormal . PLATELET COUNT (test 285 K/UL 130-400 code = 1015) ABSOLUTE NEUTROPHILS 4.77 K/UL 1.50-7.50 (test code = 1066) ABSOLUTE LYMPHOCYTES 1.75 K/UL 1.00-4.00 (test code = 1067) ABSOLUTE MONOCYTES 0.93 K/UL 0.20-1.00 (test code = 1068) ABSOLUTE EOSINOPHILS 0.06 K/UL 0.00-0.50 (test code = 1040) ABSOLUTE BASOPHILS 0.04 K/UL 0.00-0.20 (test code = 1069) ABS IMMATURE 0.16 K/UL 0.00-0.10 H GRANULOCYTES (test code = 1020) ABS NUCLEATED RBCS 0.00 K/UL 0.00-0.11 (test code = 73169) COMPREHENSIVE METABOLIC [id number] 04:02:36 Test Item Value Reference Range Interpretation Comments GLUCOSE (test code = 125 MG/DL 70-99 H 2216) BUN (test code = 20 MG/DL 8-2207) CREATININE (test 1.30 MG/DL 0.80-1.40 code = 2214) eGFR (2020 CKD-EPI) 54 >60 L (test code = 70939) ML/MIN/1.73 CALC BUN/CREAT (test 15 RATIO 6-28 code = 2235) SODIUM (test code = 137 MEQ/L 458-799 3194) POTASSIUM (test code 4.5 MEQ/L 3.5-5.4 = 2227) CHLORIDE (test code 103 MEQ/L 95-107 = 2214) CARBON DIOXIDE (test 19 MEQ/L 19-31 code = 220) CALCIUM (test code = 9.5 MG/DL 8.5-10.5 2208) PROTEIN, TOTAL (test 6.9 G/DL 6.1-8.3 code = 2228) ALBUMIN (test code = 3.9 G/DL 3.5-5.2 2200) CALC GLOBULIN (test 3.0 G/DL 1.9-3.7 code = 224) CALC A/G RATIO (test 1.3 RATIO 1.0-2.6 code = 223) BILIRUBIN, TOTAL 1.3 MG/DL See_Comment H [Automated message] (test code = 2207) The syste m which generated this result transmitted ref erence range: <=1.2. T he reference range was not used to int erpret this result as normal/abnormal . ALKALINE PHOSPHATASE 89 U/L 40-125 (test code = 2204) AST (test code = 25 U/L 9-50 2217) ALT (test code = 21 U/L 5-50 UNLESS OTH ERWISE 2218) INDICATED, ALL TESTING PERFORM ED ATCLINICAL PATH OG LABORATORIES, [facility]. [address] [place] [id number] [place] [address] DIRECTOR: KERA ALBARADO M.D. CLIA NUMBER [id number] CAP ACCREDITATION N O. [id number] TSH, THIRD GENERATION [ADDED]2021-09-25 00:00:00 Test Item Value Reference Range Interpretation Comments TSH, THIRD GENERATION (test code 2.840 UIU/ML = 2821) TSH, THIRD GENERATION [ADDED]2021-09-25 00:00:00 Test Item Value Reference Range Interpretation Comments TSH, THIRD GENERATION (test code 2.840 UIU/ML = 2821) TSH, THIRD GENERATION [ADDED]2021-09-25 00:00:00 Test Item Value Reference Range Interpretation Comments TSH, THIRD GENERATION (test code 2.840 UIU/ML = 2821) CBC W/AUTO DIFF WITH PLATELETS [ADDED]2021-09-25 00:00:00 Test Item Value Reference Range Interpretation Comments WBC (test code = 1001) 7.7 K/UL RBC (test code = 1002) 6.36 M/UL HEMOGLOBIN (test code = 1003) 16.2 G/DL HEMATOCRIT (test code = 1004) 47.8 % MCV (test code = 1005) 75.2 fL MCH (test code = 1006) 25.5 PG MCHC (test code = 1007) 33.9 G/DL RDW (test code = 1038) 17.6 % NEUTROPHILS (test code = 1008) 61.8 % LYMPHOCYTES (test code = 1010) 22.7 % MONOCYTES (test code = 1011) 12.1 % EOSINOPHILS (test code = 1012) 0.8 % BASOPHILS (test code = 1013) 0.5 % IMMATURE GRANULOCYTES (test 2.1 % code = 1036) NUCLEATED RBCS (test code = 0.0 /100WBC'S 1065) PLATELET COUNT (test code = 285 K/UL 1015) ABSOLUTE NEUTROPHILS (test code 4.77 K/UL = 1066) ABSOLUTE LYMPHOCYTES (test code 1.75 K/UL = 1067) ABSOLUTE MONOCYTES (test code = 0.93 K/UL 1068) ABSOLUTE EOSINOPHILS (test code 0.06 K/UL = 1040) ABSOLUTE BASOPHILS (test code = 0.04 K/UL 1069) ABS IMMATURE GRANULOCYTES (test 0.16 K/UL code = 1020) ABS NUCLEATED RBCS (test code = 0.00 K/UL 32402) CBC W/AUTO DIFF WITH PLATELETS [ADDED]2021-09-25 00:00:00 Test Item Value Reference Range Interpretation Comments WBC (test code = 1001) 7.7 K/UL RBC (test code = 1002) 6.36 M/UL HEMOGLOBIN (test code = 1003) 16.2 G/DL HEMATOCRIT (test code = 1004) 47.8 % MCV (test code = 1005) 75.2 fL MCH (test code = 1006) 25.5 PG MCHC (test code = 1007) 33.9 G/DL RDW (test code = 1038) 17.6 % NEUTROPHILS (test code = 1008) 61.8 % LYMPHOCYTES (test code = 1010) 22.7 % MONOCYTES (test code = 1011) 12.1 % EOSINOPHILS (test code = 1012) 0.8 % BASOPHILS (test code = 1013) 0.5 % IMMATURE GRANULOCYTES (test 2.1 % code = 1036) NUCLEATED RBCS (test code = 0.0 /100WBC'S 1065) PLATELET COUNT (test code = 285 K/UL 1015) ABSOLUTE NEUTROPHILS (test code 4.77 K/UL = 1066) ABSOLUTE LYMPHOCYTES (test code 1.75 K/UL = 1067) ABSOLUTE MONOCYTES (test code = 0.93 K/UL 1068) ABSOLUTE EOSINOPHILS (test code 0.06 K/UL = 1040) ABSOLUTE BASOPHILS (test code = 0.04 K/UL 1069) ABS IMMATURE GRANULOCYTES (test 0.16 K/UL code = 1020) ABS NUCLEATED RBCS (test code = 0.00 K/UL 83318) CBC W/AUTO DIFF WITH PLATELETS [ADDED]2021-09-25 00:00:00 Test Item Value Reference Range Interpretation Comments WBC (test code = 1001) 7.7 K/UL RBC (test code = 1002) 6.36 M/UL HEMOGLOBIN (test code = 1003) 16.2 G/DL HEMATOCRIT (test code = 1004) 47.8 % MCV (test code = 1005) 75.2 fL MCH (test code = 1006) 25.5 PG MCHC (test code = 1007) 33.9 G/DL RDW (test code = 1038) 17.6 % NEUTROPHILS (test code = 1008) 61.8 % LYMPHOCYTES (test code = 1010) 22.7 % MONOCYTES (test code = 1011) 12.1 % EOSINOPHILS (test code = 1012) 0.8 % BASOPHILS (test code = 1013) 0.5 % IMMATURE GRANULOCYTES (test 2.1 % code = 1036) NUCLEATED RBCS (test code = 0.0 /100WBC'S 1065) PLATELET COUNT (test code = 285 K/UL 1015) ABSOLUTE NEUTROPHILS (test code 4.77 K/UL = 1066) ABSOLUTE LYMPHOCYTES (test code 1.75 K/UL = 1067) ABSOLUTE MONOCYTES (test code = 0.93 K/UL 1068) ABSOLUTE EOSINOPHILS (test code 0.06 K/UL = 1040) ABSOLUTE BASOPHILS (test code = 0.04 K/UL 1069) ABS IMMATURE GRANULOCYTES (test 0.16 K/UL code = 1020) ABS NUCLEATED RBCS (test code = 0.00 K/UL 29545) COMPREHENSIVE METABOLIC PANEL [ADDED]2021-09-25 00:00:00 Test Item Value Reference Range Interpretation Comments GLUCOSE (test code = 2217) 125 MG/DL BUN (test code = 2208) 20 MG/DL CREATININE (test code = 2214) 1.30 MG/DL eGFR (2020 CKD-EPI) (test code 54 ML/MIN/1.73 = 11983) CALC BUN/CREAT (test code = 15 RATIO 2235) SODIUM (test code = 2231) 137 MEQ/L POTASSIUM (test code = 2228) 4.5 MEQ/L CHLORIDE (test code = 2215) 103 MEQ/L CARBON DIOXIDE (test code = 19 MEQ/L 220) CALCIUM (test code = 2209) 9.5 MG/DL PROTEIN, TOTAL (test code = 6.9 G/DL 2228) ALBUMIN (test code = 2201) 3.9 G/DL CALC GLOBULIN (test code = 3.0 G/DL 2240) CALC A/G RATIO (test code = 1.3 RATIO 2234) BILIRUBIN, TOTAL (test code = 1.3 MG/DL 2206) ALKALINE PHOSPHATASE (test 89 U/L code = 2204) AST (test code = 2218) 25 U/L ALT (test code = 2219) 21 U/L COMPREHENSIVE METABOLIC PANEL [ADDED]2021-09-25 00:00:00 Test Item Value Reference Range Interpretation Comments GLUCOSE (test code = 2217) 125 MG/DL BUN (test code = 2208) 20 MG/DL CREATININE (test code = 2214) 1.30 MG/DL eGFR (2020 CKD-EPI) (test code 54 ML/MIN/1.73 = 98063) CALC BUN/CREAT (test code = 15 RATIO 2235) SODIUM (test code = 2231) 137 MEQ/L POTASSIUM (test code = 2228) 4.5 MEQ/L CHLORIDE (test code = 2215) 103 MEQ/L CARBON DIOXIDE (test code = 19 MEQ/L 220) CALCIUM (test code = 2209) 9.5 MG/DL PROTEIN, TOTAL (test code = 6.9 G/DL 2228) ALBUMIN (test code = 2201) 3.9 G/DL CALC GLOBULIN (test code = 3.0 G/DL 2240) CALC A/G RATIO (test code = 1.3 RATIO 2234) BILIRUBIN, TOTAL (test code = 1.3 MG/DL 2207) ALKALINE PHOSPHATASE (test 89 U/L code = 2204) AST (test code = 2218) 25 U/L ALT (test code = 2219) 21 U/L TSH, THIRD GENERATION [ADDED]2021-09-25 00:00:00 Test Item Value Reference Range Interpretation Comments TSH, THIRD GENERATION (test code 2.840 UIU/ML = 2821) TSH, THIRD GENERATION [ADDED]2021-09-25 00:00:00 Test Item Value Reference Range Interpretation Comments TSH, THIRD GENERATION (test code 2.840 UIU/ML = 2821) TSH, THIRD GENERATION [ADDED]2021-09-25 00:00:00 Test Item Value Reference Range Interpretation Comments TSH, THIRD GENERATION (test code 2.840 UIU/ML = 2821) CBC W/AUTO DIFF WITH PLATELETS [ADDED]2021-09-25 00:00:00 Test Item Value Reference Range Interpretation Comments WBC (test code = 1001) 7.7 K/UL RBC (test code = 1002) 6.36 M/UL HEMOGLOBIN (test code = 1003) 16.2 G/DL HEMATOCRIT (test code = 1004) 47.8 % MCV (test code = 1005) 75.2 fL MCH (test code = 1006) 25.5 PG MCHC (test code = 1007) 33.9 G/DL RDW (test code = 1038) 17.6 % NEUTROPHILS (test code = 1008) 61.8 % LYMPHOCYTES (test code = 1010) 22.7 % MONOCYTES (test code = 1011) 12.1 % EOSINOPHILS (test code = 1012) 0.8 % BASOPHILS (test code = 1013) 0.5 % IMMATURE GRANULOCYTES (test 2.1 % code = 1036) NUCLEATED RBCS (test code = 0.0 /100WBC'S 1065) PLATELET COUNT (test code = 285 K/UL 1015) ABSOLUTE NEUTROPHILS (test code 4.77 K/UL = 1066) ABSOLUTE LYMPHOCYTES (test code 1.75 K/UL = 1067) ABSOLUTE MONOCYTES (test code = 0.93 K/UL 1068) ABSOLUTE EOSINOPHILS (test code 0.06 K/UL = 1040) ABSOLUTE BASOPHILS (test code = 0.04 K/UL 1069) ABS IMMATURE GRANULOCYTES (test 0.16 K/UL code = 1020) ABS NUCLEATED RBCS (test code = 0.00 K/UL 93748) CBC W/AUTO DIFF WITH PLATELETS [ADDED]2021-09-25 00:00:00 Test Item Value Reference Range Interpretation Comments WBC (test code = 1001) 7.7 K/UL RBC (test code = 1002) 6.36 M/UL HEMOGLOBIN (test code = 1003) 16.2 G/DL HEMATOCRIT (test code = 1004) 47.8 % MCV (test code = 1005) 75.2 fL MCH (test code = 1006) 25.5 PG MCHC (test code = 1007) 33.9 G/DL RDW (test code = 1038) 17.6 % NEUTROPHILS (test code = 1008) 61.8 % LYMPHOCYTES (test code = 1010) 22.7 % MONOCYTES (test code = 1011) 12.1 % EOSINOPHILS (test code = 1012) 0.8 % BASOPHILS (test code = 1013) 0.5 % IMMATURE GRANULOCYTES (test 2.1 % code = 1036) NUCLEATED RBCS (test code = 0.0 /100WBC'S 1065) PLATELET COUNT (test code = 285 K/UL 1015) ABSOLUTE NEUTROPHILS (test code 4.77 K/UL = 1066) ABSOLUTE LYMPHOCYTES (test code 1.75 K/UL = 1067) ABSOLUTE MONOCYTES (test code = 0.93 K/UL 1068) ABSOLUTE EOSINOPHILS (test code 0.06 K/UL = 1040) ABSOLUTE BASOPHILS (test code = 0.04 K/UL 1069) ABS IMMATURE GRANULOCYTES (test 0.16 K/UL code = 1020) ABS NUCLEATED RBCS (test code = 0.00 K/UL 20593) CBC W/AUTO DIFF WITH PLATELETS [ADDED]2021-09-25 00:00:00 Test Item Value Reference Range Interpretation Comments WBC (test code = 1001) 7.7 K/UL RBC (test code = 1002) 6.36 M/UL HEMOGLOBIN (test code = 1003) 16.2 G/DL HEMATOCRIT (test code = 1004) 47.8 % MCV (test code = 1005) 75.2 fL MCH (test code = 1006) 25.5 PG MCHC (test code = 1007) 33.9 G/DL RDW (test code = 1038) 17.6 % NEUTROPHILS (test code = 1008) 61.8 % LYMPHOCYTES (test code = 1010) 22.7 % MONOCYTES (test code = 1011) 12.1 % EOSINOPHILS (test code = 1012) 0.8 % BASOPHILS (test code = 1013) 0.5 % IMMATURE GRANULOCYTES (test 2.1 % code = 1036) NUCLEATED RBCS (test code = 0.0 /100WBC'S 1065) PLATELET COUNT (test code = 285 K/UL 1015) ABSOLUTE NEUTROPHILS (test code 4.77 K/UL = 1066) ABSOLUTE LYMPHOCYTES (test code 1.75 K/UL = 1067) ABSOLUTE MONOCYTES (test code = 0.93 K/UL 1068) ABSOLUTE EOSINOPHILS (test code 0.06 K/UL = 1040) ABSOLUTE BASOPHILS (test code = 0.04 K/UL 1069) ABS IMMATURE GRANULOCYTES (test 0.16 K/UL code = 1020) ABS NUCLEATED RBCS (test code = 0.00 K/UL 36726) COMPREHENSIVE METABOLIC PANEL [ADDED]2021-09-25 00:00:00 Test Item Value Reference Range Interpretation Comments GLUCOSE (test code = 2217) 125 MG/DL BUN (test code = 2208) 20 MG/DL CREATININE (test code = 2214) 1.30 MG/DL eGFR (2020 CKD-EPI) (test code 54 ML/MIN/1.73 = 61827) CALC BUN/CREAT (test code = 15 RATIO 2235) SODIUM (test code = 2231) 137 MEQ/L POTASSIUM (test code = 2228) 4.5 MEQ/L CHLORIDE (test code = 2215) 103 MEQ/L CARBON DIOXIDE (test code = 19 MEQ/L 2205) CALCIUM (test code = 2209) 9.5 MG/DL PROTEIN, TOTAL (test code = 6.9 G/DL 2228) ALBUMIN (test code = 2201) 3.9 G/DL CALC GLOBULIN (test code = 3.0 G/DL 224) CALC A/G RATIO (test code = 1.3 RATIO 2234) BILIRUBIN, TOTAL (test code = 1.3 MG/DL 2206) ALKALINE PHOSPHATASE (test 89 U/L code = 2204) AST (test code = 2218) 25 U/L ALT (test code = 2219) 21 U/L COMPREHENSIVE METABOLIC PANEL [ADDED]2021-09-25 00:00:00 Test Item Value Reference Range Interpretation Comments GLUCOSE (test code = 2217) 125 MG/DL BUN (test code = 2208) 20 MG/DL CREATININE (test code = 2214) 1.30 MG/DL eGFR (2020 CKD-EPI) (test code 54 ML/MIN/1.73 = 59373) CALC BUN/CREAT (test code = 15 RATIO 2235) SODIUM (test code = 2231) 137 MEQ/L POTASSIUM (test code = 2228) 4.5 MEQ/L CHLORIDE (test code = 2215) 103 MEQ/L CARBON DIOXIDE (test code = 19 MEQ/L 2205) CALCIUM (test code = 2209) 9.5 MG/DL PROTEIN, TOTAL (test code = 6.9 G/DL 2228) ALBUMIN (test code = 2201) 3.9 G/DL CALC GLOBULIN (test code = 3.0 G/DL 2240) CALC A/G RATIO (test code = 1.3 RATIO 2234) BILIRUBIN, TOTAL (test code = 1.3 MG/DL 2206) ALKALINE PHOSPHATASE (test 89 U/L code = 2204) AST (test code = 2218) 25 U/L ALT (test code = 2219) 21 U/L VITAMIN D, 25 [id number] 00:00:00 Test Item Value Reference Range Interpretation Comments VITAMIN D, 25 OH (test code = 4958) 18 NG/ML VITAMIN D, 25 [id number] 00:00:00 Test Item Value Reference Range Interpretation Comments VITAMIN D, 25 OH (test code = 4958) 18 NG/ML VITAMIN D, 25 [id number] 00:00:00 Test Item Value Reference Range Interpretation Comments VITAMIN D, 25 OH (test code = 4958) 18 NG/ML VITAMIN D, 25 [id number] 00:00:00 Test Item Value Reference Range Interpretation Comments VITAMIN D, 25 OH (test code = 4958) 18 NG/ML VITAMIN D, 25 [id number] 00:00:00 Test Item Value Reference Range Interpretation Comments VITAMIN D, 25 OH (test code = 4958) 18 NG/ML [id number] 05:18:25 Test Item Value Reference Range Interpretation Comments MAGNESIUM (test code = 9466496464) 2.0 mg/dL 1.7-2.4 Lab Interpretation (test code = Normal 21021-5) [id number]:18:05 Test Item Value Reference Range Interpretation Comments CK (test code = 2146994965) 102 U/L 33-194 Lab Interpretation (test code = Normal 09691-1) [facility]ID [facility]2020-09-01 04:00:42 Test Item Value Reference Range Interpretation Comments SARS-CoV-2 Rapid ID NOW Not Detected Not Detected (test code = 00054-4) JOAN (test code = JOAN) ID NOW COVID-19 Assay is an isothermal nucleic acid amplification test intended for the qualitative detection of nucleic acid from SARS-CoV-2 viral RNA in nasopharyngeal (INSULATOR TECHNICIAN) specimens. It is used under Emergency Use Authorization (EUA) by FDA. The limit of detection (LOD) of the assay is 125 Genome Equivalents/mL. A positive result is indicative of the presence of SARS-CoV-2 RNA. ?Clinical correlation with patient history and other diagnostic information is necessary to determine patient infection status. A negative (Not Detected) result does not preclude SARS-CoV-2 infection. In patients with clinical symptoms and other tests that are consistent with SARS-CoV-2 infection, negative results should be treated as presumptive negative and a new specimen should be tested with alternative PCR molecular test. Invalid: Please collect a new specimen for repeat patient testing if clinically indicated. Lab Interpretation Normal (test code = 60692-8) [facility] [id number] 03:04:17 Test Item Value Reference Range Interpretation Comments TROPONIN I (test 0.005 ng/mL See_Comment [Automated code = 8378535876) message] The system which generated this result transmitted reference range : <=0.034. The reference range was not used to interpret this result as normal/abnormal . JOAN (test code = Equal or Less than JOAN) 0.034 ng/ml---Normal ?Note: Cardiac troponin begins to rise 3-4 hours after the onset of ischemia. Repeat in 4-6 hours if the sample was drawn within 3-4 hours of the onset of the symptom and found normal. Between 0.035 and 0.120 ng/mL--- Borderline. Questionable myocardial injury or necrosis ? ?Note: Serial measurement may be necessary to confirm or exclude the diagnosis of myocardial injury or necrosis; Clinical correlation (symptoms, EKGs, imaging studies, and others) required; Repeat in 4-6 hours if clinically indicated. ? Equal or Higher than 0.121 ng/mL---Abnormal. Myocardial Injury or Necrosis Likely ? Biotin has been reported to cause a negative bias, interpret results relative to patient's use of biotin. ? Lab Interpretation Normal (test code = 65202-8) [facility]57[facility]28 Test Item Value Reference Range Interpretation Comments APPEARANCE (test code = Clear Clear 1537812110) COLOR (test code = Straw Yellow A 4245477291) PH (test code = 4.8-8.0 5380788651) SP GRAVITY (test code = 1.003-1.030 0635354439) GLU U QUAL (test code = Normal Normal 7223104791) BLOOD (test code = Negative Negative 6825688907) KETONES (test code = Negative Negative 5676859398) PROTEIN (test code = Negative Negative 2887-8) UROBILIN (test code = Normal Normal 5974033889) BILIRUBIN (test code = Negative Negative 7589399465) NITRITE (test code = Negative Negative 2229406949) LEUK MADHU (test code = Negative Negative 9589655722) RBC/HPF (test code = See_Comment [Autom ated message] 0028665075) The system [employer] generated this result transmitted ref erence range: 0 - 3 HP F. The reference range was not used to int erpret this result as normal/abnormal . WBC/HPF (test code = See_Comment [Autom ated message] 2557215588) The system [employer] generated this result transmitted ref erence range: 0 - 5 HP F. The reference range was not used to int erpret this result as normal/abnormal . BACTERIA (test code = Few Negative A 1972641997) Lab Interpretation (test Abnormal code = 78248-4) [facility]. METABOLIC PANEL (56071)2020-09-01 02:52:37 Test Item Value Reference Range Interpretation Comments NA (test code = 137 mmol/L 135-145 1705840076) K (test code = 4.8 mmol/L 3.5-5.0 9002486918) CL (test code = 104 mmol/L 98-108 2213222972) CO2 TOTAL (test code = 27 mmol/L 23-31 0313898562) AGAP (test code = 2-16 7389526230) BUN (test code = 24 mg/dL 7-23 H 6742666842) GLUCOSE (test code = 83 mg/dL 70-110 3042942133) CREATININE (test code = 1.24 mg/dL 0.60-1.25 2875656268) TOTAL BILI (test code = 0.4 mg/dL 0.1-1.1 9648208485) CALCIUM (test code = 9.8 mg/dL 8.6-10.6 2643771635) T PROTEIN (test code = 7.4 g/dL 6.3-8.2 1944581963) ALBUMIN (test code = 3.8 g/dL 3.5-5.0 7324761714) ALK PHOS (test code = 107 U/L 34-122 6915400399) ALTv (test code = 30 U/L 5-50 2-6) AST(SGOT) (test code = 36 U/L 13-40 1295391968) eGFR (test code = mL/min/1.73m2 8450394595) JOAN (test code = JOAN) Association of Glomerular Filtration Rate (GFR) and Staging of Kidney Disease* + --+ --+ ------+| GFR (mL/min/1.73 m2) ?| With Kidney Damage ?| ?Without Kidney Damage+ --------+ --------+ +| ?>90 ?| ?Stage one ?| ? Normal ?+ ---+ ---+ -------+| ?60-89 ?| ?Stage two ?| ? Decreased GFR ? + --+ --+ ------+| ?30-59 ?| ?Stage three ?| ? Stage three ? + --+ --+ ------+| ?15-29 ?| ?Stage four ? | ? Stage four ?+ ---+ ---+ -------+| ?<15 (or dialysis) ? ?| ?Stage five ? | ? Stage five ?+ ---+ ---+ -------+ *Each stage assumes the associated GFR level has been in effect for at least three months. ?Stages 1 to 5, with or without kidney disease, indicate chronic kidney disease. Notes: Determination of stages one and two (with eGFR >59mL/min/1.73 m2) requires estimation of kidney damage for at least three months as defined by structural or functional abnormalities of the kidney, manifested by either:Pathological abnormalities or Markers of kidney damage (including abnormalities in the composition of the blood or urine or abnormalities in imaging tests). Lab Interpretation Abnormal (test code = 03424-4) [facility], [id number] 02:52:17 Test Item Value Reference Range Interpretation Comments LIPASE (test code = 2426557532) 174 U/L 0-220 Lab Interpretation (test code = Normal 12481-9) [facility] WITH [id number] 02:40:45 Test Item Value Reference Range Interpretation Comments WBC (test code = See_Comment [Automated 9639-2) message] The sy stem which generated this result transmitted reference range : 4.20 - 10.70 10*3/?L. The reference range was not used to interpret this result as normal/abnormal . RBC (test code = See_Comment [Automated 696-8) message] The sy stem which generated this result transmitted reference range : 4.26 - 5.52 10*6/?L. The reference range was not used to interpret this result as normal/abnormal . HGB (test code = 13.9 g/dL 12.2-16.4 718-7) HCT (test code = 43.0 % 38.4-49.3 4544-3) MCV (test code = 78.0 fL 81.7-95.6 L 787-2) MCH (test code = 25.2 pg 26.1-32.7 L 785-6) MCHC (test code = 32.3 g/dL 31.2-35.0 786-4) RDW-SD (test code = 45.1 fL 38.5-51.6 60391-5) RDW-CV (test code = 16.2 % 12.1-15.4 H 788-0) PLT (test code = See_Comment [Automated 777-3) message] The sy stem which generated this result transmitted reference range : 150 - 328 10*3/ ?L. The reference r klarissa was not used to interpret this result as normal/abnormal . MPV (test code = 8.9 fL 9.8-13.0 L 65188-1) NRBC/100 WBC (test See_Comment [Automat ed code = 6443601523) message] The system which generated this result transmitted reference range : 0.0 - 10.0 /100 WBCs. The refer ence range was not u sed to interpret th is result as normal/abnormal . NRBC x10^3 (test code <0.01 See_Comment [Auto mated = 0554996268) message] The s ystem which generated this result transmitted reference range : 10*3/?L. The reference range was not used to interpret this result as normal/abnormal . GRAN MAT (NEUT) % 59.5 % (test code = 770-8) IMM GRAN % (test code 1.00 % = 3030397463) LYMPH % (test code = 25.2 % 736-9) MONO % (test code = 11.9 % 5905-5) EOS % (test code = 2.1 % 713-8) BASO % (test code = 0.3 % 706-2) GRAN MAT x10^3(ANC) 3.63 10*3/uL 1.99-6.95 (test code = 8073914024) IMM GRAN x10^3 (test 0.06 10*3/uL 0.00-0.06 code = 5966678934) LYMPH x10^3 (test code 1.54 10*3/uL 1.09-3.23 = 731-0) MONO x10^3 (test code 0.73 10*3/uL 0.36-1.02 = 742-7) EOS x10^3 (test code = 0.13 10*3/uL 0.06-0.53 711-2) BASO x10^3 (test code <0.03 0.01-0.09 = 704-7) Lab Interpretation Abnormal (test code = 34567-5) [facility] [id number] 00:00:00 Test Item Value Reference Range Interpretation Comments VITAMIN B-12 (test code = 2840) 376 PG/ML VITAMIN [id number] 00:00:00 Test Item Value Reference Range Interpretation Comments VITAMIN B-12 (test code = 2840) 376 PG/ML VITAMIN [id number] 00:00:00 Test Item Value Reference Range Interpretation Comments VITAMIN B-12 (test code = 2840) 376 PG/ML VITAMIN [id number] 00:00:00 Test Item Value Reference Range Interpretation Comments VITAMIN B-12 (test code = 2840) 376 PG/ML VITAMIN [id number] 00:00:00 Test Item Value Reference Range Interpretation Comments VITAMIN B-12 (test code = 2840) 376 PG/ML VITAMIN [id number] 00:00:00 Test Item Value Reference Range Interpretation Comments VITAMIN B-12 (test code = 2840) 376 PG/ML VITAMIN [id number] 00:00:00 Test Item Value Reference Range Interpretation Comments VITAMIN B-12 (test code = 2840) 376 PG/ML VITAMIN [id number] 00:00:00 Test Item Value Reference Range Interpretation Comments VITAMIN B-12 (test code = 2840) 376 PG/ML VITAMIN D, 25 [id number] 00:00:00 Test Item Value Reference Range Interpretation Comments VITAMIN D, 25 OH (test code = 4958) 19 NG/ML VITAMIN D, 25 [id number] 00:00:00 Test Item Value Reference Range Interpretation Comments VITAMIN D, 25 OH (test code = 4958) 19 NG/ML VITAMIN D, 25 [id number] 00:00:00 Test Item Value Reference Range Interpretation Comments VITAMIN D, 25 OH (test code = 4958) 19 NG/ML VITAMIN D, 25 [id number] 00:00:00 Test Item Value Reference Range Interpretation Comments VITAMIN D, 25 OH (test code = 4958) 19 NG/ML VITAMIN D, 25 [id number] 00:00:00 Test Item Value Reference Range Interpretation Comments VITAMIN D, 25 OH (test code = 4958) 19 NG/ML COMPREHENSIVE METABOLIC [id number] 00:00:00 Test Item Value Reference Range Interpretation Comments GLUCOSE (test code = 2217) 107 MG/DL BUN (test code = 2208) 19 MG/DL CREATININE (test code = 2214) 1.12 MG/DL eGFR AMER. (test code 70 ML/MIN/1.73 = 34562) eGFR NON- AMER. (test 60 ML/MIN/1.73 code = 16141) CALC BUN/CREAT (test code = 17 RATIO 2235) SODIUM (test code = 2231) 139 MEQ/L POTASSIUM (test code = 2228) 4.2 MEQ/L CHLORIDE (test code = 2215) 101 MEQ/L CARBON DIOXIDE (test code = 27 MEQ/L 2205) CALCIUM (test code = 2209) 9.7 MG/DL PROTEIN, TOTAL (test code = 7.2 G/DL 2228) ALBUMIN (test code = 2201) 4.1 G/DL CALC GLOBULIN (test code = 3.1 G/DL 0) CALC A/G RATIO (test code = 1.3 RATIO 4) BILIRUBIN, TOTAL (test code = 0.5 MG/DL 2206) ALKALINE PHOSPHATASE (test 96 U/L code = 2204) AST (test code = 2218) 31 U/L ALT (test code = 2219) 27 U/L COMPREHENSIVE METABOLIC [id number] 00:00:00 Test Item Value Reference Range Interpretation Comments GLUCOSE (test code = 2217) 107 MG/DL BUN (test code = 2208) 19 MG/DL CREATININE (test code = 2214) 1.12 MG/DL eGFR AMER. (test code 70 ML/MIN/1.73 = 26825) eGFR NON- AMER. (test 60 ML/MIN/1.73 code = 47481) CALC BUN/CREAT (test code = 17 RATIO 2235) SODIUM (test code = 2231) 139 MEQ/L POTASSIUM (test code = 2228) 4.2 MEQ/L CHLORIDE (test code = 2215) 101 MEQ/L CARBON DIOXIDE (test code = 27 MEQ/L 2205) CALCIUM (test code = 2209) 9.7 MG/DL PROTEIN, TOTAL (test code = 7.2 G/DL 2228) ALBUMIN (test code = 2201) 4.1 G/DL CALC GLOBULIN (test code = 3.1 G/DL 2239) CALC A/G RATIO (test code = 1.3 RATIO 2233) BILIRUBIN, TOTAL (test code = 0.5 MG/DL 2206) ALKALINE PHOSPHATASE (test 96 U/L code = 2204) AST (test code = 2218) 31 U/L ALT (test code = 2219) 27 U/L CBC W/AUTO [id number] 00:00:00 Test Item Value Reference Range Interpretation Comments WBC (test code = 1001) 5.8 K/UL RBC (test code = 1002) 5.77 M/UL HEMOGLOBIN (test code = 1003) 14.6 G/DL HEMATOCRIT (test code = 1004) 44.6 % MCV (test code = 1005) 77.3 fL MCH (test code = 1006) 25.3 PG MCHC (test code = 1007) 32.7 G/DL RDW (test code = 1038) 17.2 % NEUTROPHILS (test code = 1008) 62.7 % LYMPHOCYTES (test code = 1010) 24.7 % MONOCYTES (test code = 1011) 9.9 % EOSINOPHILS (test code = 1012) 2.4 % BASOPHILS (test code = 1013) 0.3 % PLATELET COUNT (test code = 1015) 273 K/UL CBC W/AUTO [id number] 00:00:00 Test Item Value Reference Range Interpretation Comments WBC (test code = 1001) 5.8 K/UL RBC (test code = 1002) 5.77 M/UL HEMOGLOBIN (test code = 1003) 14.6 G/DL HEMATOCRIT (test code = 1004) 44.6 % MCV (test code = 1005) 77.3 fL MCH (test code = 1006) 25.3 PG MCHC (test code = 1007) 32.7 G/DL RDW (test code = 1038) 17.2 % NEUTROPHILS (test code = 1008) 62.7 % LYMPHOCYTES (test code = 1010) 24.7 % MONOCYTES (test code = 1011) 9.9 % EOSINOPHILS (test code = 1012) 2.4 % BASOPHILS (test code = 1013) 0.3 % PLATELET COUNT (test code = 1015) 273 K/UL CBC W/AUTO [id number] 00:00:00 Test Item Value Reference Range Interpretation Comments WBC (test code = 1001) 5.8 K/UL RBC (test code = 1002) 5.77 M/UL HEMOGLOBIN (test code = 1003) 14.6 G/DL HEMATOCRIT (test code = 1004) 44.6 % MCV (test code = 1005) 77.3 fL MCH (test code = 1006) 25.3 PG MCHC (test code = 1007) 32.7 G/DL RDW (test code = 1038) 17.2 % NEUTROPHILS (test code = 1008) 62.7 % LYMPHOCYTES (test code = 1010) 24.7 % MONOCYTES (test code = 1011) 9.9 % EOSINOPHILS (test code = 1012) 2.4 % BASOPHILS (test code = 1013) 0.3 % PLATELET COUNT (test code = 1015) 273 K/UL [id number] 00:00:00 Test Item Value Reference Range Interpretation Comments TSH, THIRD GENERATION (test code 4.320 UIU/ML = 2821) [id number] 00:00:00 Test Item Value Reference Range Interpretation Comments TSH, THIRD GENERATION (test code 4.320 UIU/ML = 2821) [id number] 00:00:00 Test Item Value Reference Range Interpretation Comments TSH, THIRD GENERATION (test code 4.320 UIU/ML = 2821) COMPREHENSIVE METABOLIC [id number] 00:00:00 Test Item Value Reference Range Interpretation Comments GLUCOSE (test code = 2217) 107 MG/DL BUN (test code = 2208) 19 MG/DL CREATININE (test code = 2214) 1.12 MG/DL eGFR AMER. (test code 70 ML/MIN/1.73 = 90464) eGFR NON- AMER. (test 60 ML/MIN/1.73 code = 64103) CALC BUN/CREAT (test code = 17 RATIO 2235) SODIUM (test code = 2231) 139 MEQ/L POTASSIUM (test code = 2228) 4.2 MEQ/L CHLORIDE (test code = 2215) 101 MEQ/L CARBON DIOXIDE (test code = 27 MEQ/L 2205) CALCIUM (test code = 2209) 9.7 MG/DL PROTEIN, TOTAL (test code = 7.2 G/DL 2228) ALBUMIN (test code = 2201) 4.1 G/DL CALC GLOBULIN (test code = 3.1 G/DL 2240) CALC A/G RATIO (test code = 1.3 RATIO 2234) BILIRUBIN, TOTAL (test code = 0.5 MG/DL 2206) ALKALINE PHOSPHATASE (test 96 U/L code = 2204) AST (test code = 2218) 31 U/L ALT (test code = 2219) 27 U/L COMPREHENSIVE METABOLIC [id number] 00:00:00 Test Item Value Reference Range Interpretation Comments GLUCOSE (test code = 2217) 107 MG/DL BUN (test code = 2208) 19 MG/DL CREATININE (test code = 2214) 1.12 MG/DL eGFR AMER. (test code 70 ML/MIN/1.73 = 45499) eGFR NON- AMER. (test 60 ML/MIN/1.73 code = 08195) CALC BUN/CREAT (test code = 17 RATIO 2235) SODIUM (test code = 2231) 139 MEQ/L POTASSIUM (test code = 2228) 4.2 MEQ/L CHLORIDE (test code = 2215) 101 MEQ/L CARBON DIOXIDE (test code = 27 MEQ/L 2205) CALCIUM (test code = 2209) 9.7 MG/DL PROTEIN, TOTAL (test code = 7.2 G/DL 2228) ALBUMIN (test code = 2201) 4.1 G/DL CALC GLOBULIN (test code = 3.1 G/DL 2240) CALC A/G RATIO (test code = 1.3 RATIO 2234) BILIRUBIN, TOTAL (test code = 0.5 MG/DL 2206) ALKALINE PHOSPHATASE (test 96 U/L code = 2204) AST (test code = 2218) 31 U/L ALT (test code = 2219) 27 U/L CBC W/AUTO [id number] 00:00:00 Test Item Value Reference Range Interpretation Comments WBC (test code = 1001) 5.8 K/UL RBC (test code = 1002) 5.77 M/UL HEMOGLOBIN (test code = 1003) 14.6 G/DL HEMATOCRIT (test code = 1004) 44.6 % MCV (test code = 1005) 77.3 fL MCH (test code = 1006) 25.3 PG MCHC (test code = 1007) 32.7 G/DL RDW (test code = 1038) 17.2 % NEUTROPHILS (test code = 1008) 62.7 % LYMPHOCYTES (test code = 1010) 24.7 % MONOCYTES (test code = 1011) 9.9 % EOSINOPHILS (test code = 1012) 2.4 % BASOPHILS (test code = 1013) 0.3 % PLATELET COUNT (test code = 1015) 273 K/UL CBC W/AUTO [id number] 00:00:00 Test Item Value Reference Range Interpretation Comments WBC (test code = 1001) 5.8 K/UL RBC (test code = 1002) 5.77 M/UL HEMOGLOBIN (test code = 1003) 14.6 G/DL HEMATOCRIT (test code = 1004) 44.6 % MCV (test code = 1005) 77.3 fL MCH (test code = 1006) 25.3 PG MCHC (test code = 1007) 32.7 G/DL RDW (test code = 1038) 17.2 % NEUTROPHILS (test code = 1008) 62.7 % LYMPHOCYTES (test code = 1010) 24.7 % MONOCYTES (test code = 1011) 9.9 % EOSINOPHILS (test code = 1012) 2.4 % BASOPHILS (test code = 1013) 0.3 % PLATELET COUNT (test code = 1015) 273 K/UL CBC W/AUTO [id number] 00:00:00 Test Item Value Reference Range Interpretation Comments WBC (test code = 1001) 5.8 K/UL RBC (test code = 1002) 5.77 M/UL HEMOGLOBIN (test code = 1003) 14.6 G/DL HEMATOCRIT (test code = 1004) 44.6 % MCV (test code = 1005) 77.3 fL MCH (test code = 1006) 25.3 PG MCHC (test code = 1007) 32.7 G/DL RDW (test code = 1038) 17.2 % NEUTROPHILS (test code = 1008) 62.7 % LYMPHOCYTES (test code = 1010) 24.7 % MONOCYTES (test code = 1011) 9.9 % EOSINOPHILS (test code = 1012) 2.4 % BASOPHILS (test code = 1013) 0.3 % PLATELET COUNT (test code = 1015) 273 K/UL [id number] 00:00:00 Test Item Value Reference Range Interpretation Comments TSH, THIRD GENERATION (test code 4.320 UIU/ML = 2821) [id number] 00:00:00 Test Item Value Reference Range Interpretation Comments TSH, THIRD GENERATION (test code 4.320 UIU/ML = 2821) [id number] 00:00:00 Test Item Value Reference Range Interpretation Comments TSH, THIRD GENERATION (test code 4.320 UIU/ML = 2821) COMPREHENSIVE METABOLIC [id number] 00:00:00 Test Item Value Reference Range Interpretation Comments GLUCOSE (test code = 2217) 107 MG/DL BUN (test code = 2208) 19 MG/DL CREATININE (test code = 2214) 1.12 MG/DL eGFR AMER. (test code 70 ML/MIN/1.73 = 66142) eGFR NON- AMER. (test 60 ML/MIN/1.73 code = 01705) CALC BUN/CREAT (test code = 17 RATIO 2235) SODIUM (test code = 2231) 139 MEQ/L POTASSIUM (test code = 2228) 4.2 MEQ/L CHLORIDE (test code = 2215) 101 MEQ/L CARBON DIOXIDE (test code = 27 MEQ/L 2206) CALCIUM (test code = 2209) 9.7 MG/DL PROTEIN, TOTAL (test code = 7.2 G/DL 2228) ALBUMIN (test code = 2201) 4.1 G/DL CALC GLOBULIN (test code = 3.1 G/DL 2240) CALC A/G RATIO (test code = 1.3 RATIO 2234) BILIRUBIN, TOTAL (test code = 0.5 MG/DL 2206) ALKALINE PHOSPHATASE (test 96 U/L code = 2204) AST (test code = 2218) 31 U/L ALT (test code = 2219) 27 U/L CBC W/AUTO [id number] 00:00:00 Test Item Value Reference Range Interpretation Comments WBC (test code = 1001) 5.8 K/UL RBC (test code = 1002) 5.77 M/UL HEMOGLOBIN (test code = 1003) 14.6 G/DL HEMATOCRIT (test code = 1004) 44.6 % MCV (test code = 1005) 77.3 fL MCH (test code = 1006) 25.3 PG MCHC (test code = 1007) 32.7 G/DL RDW (test code = 1038) 17.2 % NEUTROPHILS (test code = 1008) 62.7 % LYMPHOCYTES (test code = 1010) 24.7 % MONOCYTES (test code = 1011) 9.9 % EOSINOPHILS (test code = 1012) 2.4 % BASOPHILS (test code = 1013) 0.3 % PLATELET COUNT (test code = 1015) 273 K/UL CBC W/AUTO [id number] 00:00:00 Test Item Value Reference Range Interpretation Comments WBC (test code = 1001) 5.8 K/UL RBC (test code = 1002) 5.77 M/UL HEMOGLOBIN (test code = 1003) 14.6 G/DL HEMATOCRIT (test code = 1004) 44.6 % MCV (test code = 1005) 77.3 fL MCH (test code = 1006) 25.3 PG MCHC (test code = 1007) 32.7 G/DL RDW (test code = 1038) 17.2 % NEUTROPHILS (test code = 1008) 62.7 % LYMPHOCYTES (test code = 1010) 24.7 % MONOCYTES (test code = 1011) 9.9 % EOSINOPHILS (test code = 1012) 2.4 % BASOPHILS (test code = 1013) 0.3 % PLATELET COUNT (test code = 1015) 273 K/UL [id number] 00:00:00 Test Item Value Reference Range Interpretation Comments TSH, THIRD GENERATION (test code 4.320 UIU/ML = 2821) [id number] 00:00:00 Test Item Value Reference Range Interpretation Comments TSH, THIRD GENERATION (test code 4.320 UIU/ML = 2821) CBC W/AUTO [id number] 00:00:00 Test Item Value Reference Range Interpretation Comments WBC (test code = 1001) 6.4 K/UL RBC (test code = 1002) 6.06 M/UL HEMOGLOBIN (test code = 1003) 15.6 G/DL HEMATOCRIT (test code = 1004) 47.9 % MCV (test code = 1005) 79.0 fL MCH (test code = 1006) 25.7 PG MCHC (test code = 1007) 32.6 G/DL RDW (test code = 1038) 17.8 % NEUTROPHILS (test code = 1008) 65.5 % LYMPHOCYTES (test code = 1010) 23.9 % MONOCYTES (test code = 1011) 8.6 % EOSINOPHILS (test code = 1012) 1.4 % BASOPHILS (test code = 1013) 0.6 % PLATELET COUNT (test code = 1015) 368 K/UL CBC W/AUTO [id number] 00:00:00 Test Item Value Reference Range Interpretation Comments WBC (test code = 1001) 6.4 K/UL RBC (test code = 1002) 6.06 M/UL HEMOGLOBIN (test code = 1003) 15.6 G/DL HEMATOCRIT (test code = 1004) 47.9 % MCV (test code = 1005) 79.0 fL MCH (test code = 1006) 25.7 PG MCHC (test code = 1007) 32.6 G/DL RDW (test code = 1038) 17.8 % NEUTROPHILS (test code = 1008) 65.5 % LYMPHOCYTES (test code = 1010) 23.9 % MONOCYTES (test code = 1011) 8.6 % EOSINOPHILS (test code = 1012) 1.4 % BASOPHILS (test code = 1013) 0.6 % PLATELET COUNT (test code = 1015) 368 K/UL CBC W/AUTO [id number] 00:00:00 Test Item Value Reference Range Interpretation Comments WBC (test code = 1001) 6.4 K/UL RBC (test code = 1002) 6.06 M/UL HEMOGLOBIN (test code = 1003) 15.6 G/DL HEMATOCRIT (test code = 1004) 47.9 % MCV (test code = 1005) 79.0 fL MCH (test code = 1006) 25.7 PG MCHC (test code = 1007) 32.6 G/DL RDW (test code = 1038) 17.8 % NEUTROPHILS (test code = 1008) 65.5 % LYMPHOCYTES (test code = 1010) 23.9 % MONOCYTES (test code = 1011) 8.6 % EOSINOPHILS (test code = 1012) 1.4 % BASOPHILS (test code = 1013) 0.6 % PLATELET COUNT (test code = 1015) 368 K/UL CBC W/AUTO [id number] 00:00:00 Test Item Value Reference Range Interpretation Comments WBC (test code = 1001) 6.4 K/UL RBC (test code = 1002) 6.06 M/UL HEMOGLOBIN (test code = 1003) 15.6 G/DL HEMATOCRIT (test code = 1004) 47.9 % MCV (test code = 1005) 79.0 fL MCH (test code = 1006) 25.7 PG MCHC (test code = 1007) 32.6 G/DL RDW (test code = 1038) 17.8 % NEUTROPHILS (test code = 1008) 65.5 % LYMPHOCYTES (test code = 1010) 23.9 % MONOCYTES (test code = 1011) 8.6 % EOSINOPHILS (test code = 1012) 1.4 % BASOPHILS (test code = 1013) 0.6 % PLATELET COUNT (test code = 1015) 368 K/UL CBC W/AUTO [id number] 00:00:00 Test Item Value Reference Range Interpretation Comments WBC (test code = 1001) 6.4 K/UL RBC (test code = 1002) 6.06 M/UL HEMOGLOBIN (test code = 1003) 15.6 G/DL HEMATOCRIT (test code = 1004) 47.9 % MCV (test code = 1005) 79.0 fL MCH (test code = 1006) 25.7 PG MCHC (test code = 1007) 32.6 G/DL RDW (test code = 1038) 17.8 % NEUTROPHILS (test code = 1008) 65.5 % LYMPHOCYTES (test code = 1010) 23.9 % MONOCYTES (test code = 1011) 8.6 % EOSINOPHILS (test code = 1012) 1.4 % BASOPHILS (test code = 1013) 0.6 % PLATELET COUNT (test code = 1015) 368 K/UL CBC W/AUTO [id number] 00:00:00 Test Item Value Reference Range Interpretation Comments WBC (test code = 1001) 6.4 K/UL RBC (test code = 1002) 6.06 M/UL HEMOGLOBIN (test code = 1003) 15.6 G/DL HEMATOCRIT (test code = 1004) 47.9 % MCV (test code = 1005) 79.0 fL MCH (test code = 1006) 25.7 PG MCHC (test code = 1007) 32.6 G/DL RDW (test code = 1038) 17.8 % NEUTROPHILS (test code = 1008) 65.5 % LYMPHOCYTES (test code = 1010) 23.9 % MONOCYTES (test code = 1011) 8.6 % EOSINOPHILS (test code = 1012) 1.4 % BASOPHILS (test code = 1013) 0.6 % PLATELET COUNT (test code = 1015) 368 K/UL CBC W/AUTO [id number] 00:00:00 Test Item Value Reference Range Interpretation Comments WBC (test code = 1001) 6.4 K/UL RBC (test code = 1002) 6.06 M/UL HEMOGLOBIN (test code = 1003) 15.6 G/DL HEMATOCRIT (test code = 1004) 47.9 % MCV (test code = 1005) 79.0 fL MCH (test code = 1006) 25.7 PG MCHC (test code = 1007) 32.6 G/DL RDW (test code = 1038) 17.8 % NEUTROPHILS (test code = 1008) 65.5 % LYMPHOCYTES (test code = 1010) 23.9 % MONOCYTES (test code = 1011) 8.6 % EOSINOPHILS (test code = 1012) 1.4 % BASOPHILS (test code = 1013) 0.6 % PLATELET COUNT (test code = 1015) 368 K/UL CBC W/AUTO [id number] 00:00:00 Test Item Value Reference Range Interpretation Comments WBC (test code = 1001) 6.4 K/UL RBC (test code = 1002) 6.06 M/UL HEMOGLOBIN (test code = 1003) 15.6 G/DL HEMATOCRIT (test code = 1004) 47.9 % MCV (test code = 1005) 79.0 fL MCH (test code = 1006) 25.7 PG MCHC (test code = 1007) 32.6 G/DL RDW (test code = 1038) 17.8 % NEUTROPHILS (test code = 1008) 65.5 % LYMPHOCYTES (test code = 1010) 23.9 % MONOCYTES (test code = 1011) 8.6 % EOSINOPHILS (test code = 1012) 1.4 % BASOPHILS (test code = 1013) 0.6 % PLATELET COUNT (test code = 1015) 368 K/UL CT ABDOMEN PELVIS WO [id number] 19:21:37CT Abdomen and Pelvis without contrast. CLINICAL HISTORY: Acute generalized abdominal pain. TECHNIQUE: Multidetector helical CT acquisition was obtained from the lungbases to the greater trochanters without oral and IV contrast. ?The imageswere reviewed in lung, bone, and soft tissue windows. FINDINGS: ?Absence of intravenous contrast limits evaluation of the solidorgans. Evaluation of the bowel is also limited by lack of oral contrast.No prior study available for comparison. Lower lungs: Chronic pleural disease with calcified thickened pleuralchanges in the lateral right lower chest and underlyinglung shows chronicchanges of fibrosis. Small portion of the left lung visualized appearclear. Left hemidiaphragm is elevated. Liver, Gallbladder and Spleen: S/P cholecystectomy. No gross pathology seenin the unenhanced images of the liver or spleen. Peritoneum: ?No free air or free fluid. No lymphadenopathy. Pancreas and Adrenals: ?Unremarkable pancreas and adrenal glands. Kidneys and Ureters: ?No visible calculi in the renal collecting systems. No hydroureter or hydronephrosis.2 lesions are seen, 14 mm along the dorsal surface and 11 mm along theventral surface of the interpolar right kidney, possibly small cysts. Thereis another 8 mm lesion in the lateral interpolar cortex of right kidneywhich could be also assessed. 3.5 cm cyst of the lateral surface of upper pole and another 3.5 cm is atthe lower pole of the left kidney. In addition, there are 2 solid mass issuspected, 2.9 cm size along the lateral surface near the upper pole and4.3 cm size lesion along the lateral surface of the interpolarregion ofleft kidney. Vessels: Moderate atherosclerosis with focal ectasia of upper abdominalaorta with maximum diameter of 2.5 cm. Retroperitoneum: No abnormal fluid or lymphadenopathy. Bowel: No acute findings. Bladder ?and Reproductive Organs: Enlarged prostate. Bones: Right hip arthroplasty. Lumbar dextroscoliosis, old fractures oflower L2, L3 vertebral bodies with loss of 70% and 30% height. Oldtraumaalso noted vertebral endplates of L3, L4 and L5. Disc degeneration atL1-L2, L3 and L4, L4-L5, L5-S1 levels noted with multilevel facetarthritis. Soft tissues: Unremarkable. CONCLUSION:1. No acuteintra-abdominal or pelvic abnormalities.2. S/P cholecystectomy.3. Multiple lesions in both kidneys, discussed above including 2 largesolid mass is suspected in the left kidney. Solid masses may be furtherevaluated by contrast enhanced CT scan and/or ultrasound. [facility], Radiant Results Inft User - 04/13/2019 1:22 PM CSTCT Abdomen and Pelvis without contrast.CLINICAL HISTORY: Acute generalized abdominal pain.TECHNIQUE: Multidetector helical CT acquisition was obtained from the lungbases to the greater trochanters without oral and IV contrast. The imageswere reviewed in lung, bone, and soft tissue window s.FINDINGS: Absence of intravenous contrast limits evaluation of the solidorgans. Evaluation of the bowel is also limited by lack of oral contrast.No prior study available for comparison. Lower lungs: Chronic pleural disease with calcified thickened pleuralchanges in the lateral right lower chest and u nderlying lung shows chronicchanges of fibrosis. Small portion of the left lung visualized appearclear. Left hemidiaphragm is elevated.Liver, Gallbladder and Spleen: S/P cholecystectomy. No gross pathology seenin the unenhanced images of the liver or spleen.Peritoneum: No free air or free fluid. No lym phadenopathy.Pancreas and Adrenals: Unremarkable pancreas and adrenal glands.Kidneys and Ureters: Novisible calculi in the renal collecting systems. No hydroureter or hydronephrosis.2 lesions are seen, 14 mm along the dorsal surface and 11 mm along theventral surface of the interpolar right kidney, po ssibly small cysts. Thereis another 8 mm lesion in the lateral interpolar cortex of right kidneywhich could be also assessed.3.5 cm cyst of the lateral surface of upper pole and another 3.5 cm is atthelower pole of the left kidney. In addition, there are 2 solid mass issuspected, 2.9 cm size along the lateral surface near the upper pole and4.3 cm size lesion along the lateral surface of the interpolar region ofleft kidney.Vessels: Moderate atherosclerosis with focal ectasia of upper abdominalaorta with maximum diameter of 2.5 cm.Retroperitoneum: No abnormal fluid or lymphadenopathy.Bowel: No acutefindings.Bladder and Reproductive Organs: Enlarged prostate. Bones: Right hip arthroplasty. Lumbar de xtroscoliosis, old fractures oflower L2, L3 vertebral bodies with loss of 70% and 30% height. Old traumaalso noted vertebral endplates of L3, L4 and L5. Disc degeneration atL1-L2, L3 and L4, L4-L5, L5-S1 levels noted with multilevel facetarthritis.Soft tissues: Unremarkable.CONCLUSION:1. No acute intra-abdominal or pelvic abnormalities.2. S/P cholecystectomy.3. Multiple lesions in both kidneys, discussed above including 2 largesolid mass is suspected in the left kidney. Solid masses may be furtherevaluated by contrast enhanced CT scan and/or ultrasound.[id number] 18:35:00 Test Item Value Reference Range Interpretation Comments TROPONIN I (test 0.015 ng/mL See_Comment [Automated code = 1513047834) message] The system which generated this result transmitted reference range : <=0.034. The reference range was not used to interpret this result as normal/abnormal . JOAN (test code = Equal or Less than JOAN) 0.034 ng/ml---Normal ?Note: Cardiac troponin begins to rise 3-4 hours after the onset of ischemia. Repeat in 4-6 hours if the sample was drawn within 3-4 hours of the onset of the symptom and found normal. Between 0.035 and 0.120 ng/mL--- Borderline. Questionable myocardial injury or necrosis ? ?Note: Serial measurement may be necessary to confirm or exclude the diagnosis of myocardial injury or necrosis; Clinical correlation (symptoms, EKGs, imaging studies, and others) required; Repeat in 4-6 hours if clinically indicated. ? Equal or Higher than 0.121 ng/mL---Abnormal. Myocardial Injury or Necrosis Likely ? Biotin has been reported to cause a negative bias, interpret results relative to patient's use of biotin. ? Lab Interpretation Normal (test code = 92211-9) [facility] (ALB, T.PRO, BILI T, BU/BC, ALT, AST, ALK PHOS)2019-04-13 18:28:00 Test Item Value Reference Range Interpretation Comments TOTAL BILI (test code = 2249916691) 1.0 mg/dL 0.1-1.1 BILI UNCON (test code = 1843826254) 0.8 mg/dL 0.1-1.1 BILI CONJ (test code = 7312505872) 0.0 mg/dL 0-0.3 T PROTEIN (test code = 7289078111) 7.6 g/dL 6.3-8.2 ALBUMIN (test code = 8276335052) 3.9 g/dL 3.5-5 ALK PHOS (test code = 9363224199) 89 U/L 34-122 ALTv (test code = 1742-6) 22 U/L 5-50 AST(SGOT) (test code = 2813824426) 49 U/L 13-40 H Lab Interpretation (test code = Abnormal 58602-7) [facility] Metabolic Panel (NA, K, CL, CO2, GLUCOSE, BUN, CREATININE, CA)2019-04-13 18:28:00 Test Item Value Reference Range Interpretation Comments NA (test code = 130 mmol/L 135-145 L 8960287415) K (test code = 4.9 mmol/L 3.5-5 1919745736) CL (test code = 97 mmol/L 98-108 L 7792028856) CO2 TOTAL (test code = 21 mmol/L 23-31 L 1004533231) AGAP (test code = 2-16 8882998458) BUN (test code = 31 mg/dL 7-23 H 7084402423) GLUCOSE (test code = 89 mg/dL 70-110 0177584491) CREATININE (test code = 1.39 mg/dL 0.6-1.25 H 3984985136) CALCIUM (test code = 8.9 mg/dL 8.6-10.6 7251656184) eGFR Calculation mL/min/1.73m2 (Non-) (test code = 5747392246) eGFR Calculation mL/min/1.73m2 () (test code = 8277272024) JOAN (test code = JOAN) Association of Glomerular Filtration Rate (GFR) and Staging of Kidney Disease* + --+ --+ ------+| GFR (mL/min/1.73 m2) ?| With Kidney Damage ?| ?Without Kidney Damage+ --------+ --------+ +| ?>90 ?| ?Stage one ?| ? Normal ?+ ---+ ---+ -------+| ?60-89 ?| ?Stage two ?| ? Decreased GFR ? + --+ --+ ------+| ?30-59 ?| ?Stage three ?| ? Stage three ? + --+ --+ ------+| ?15-29 ?| ?Stage four ? | ? Stage four ?+ ---+ ---+ -------+| ?<15 (or dialysis) ? ?| ?Stage five ? | ? Stage five ?+ ---+ ---+ -------+ *Each stage assumes the associated GFR level has been in effect for at least three months. ?Stages 1 to 5, with or without kidney disease, indicate chronic kidney disease. Notes: Determination of stages one and two (with eGFR >59mL/min/1.73 m2) requires estimation of kidney damage for at least three months as defined by structural or functional abnormalities of the kidney, manifested by either:Pathological abnormalities or Markers of kidney damage (including abnormalities in the composition of the blood or urine or abnormalities in imaging tests). Lab Interpretation Abnormal (test code = 21433-7) [facility] HospitalLipase [id number] 18:28:00 Test Item Value Reference Range Interpretation Comments LIPASE (test code = 2223011824) 97 U/L 0-220 Lab Interpretation (test code = Normal 77382-2) [facility] HospitalCBC WITH [id number] 16:31:00 Test Item Value Reference Range Interpretation Comments WBC (test code = See_Comment [Automated 1774-2) message] The sy stem which generated this result transmitted reference range : 4.20 - 10.70 10*3/?L. The reference range was not used to interpret this result as normal/abnormal . RBC (test code = See_Comment H [Automated 022-5) message] The sy stem which generated this result transmitted reference range : 4.26 - 5.52 10*6/?L. The reference range was not used to interpret this result as normal/abnormal . HGB (test code = 16.6 g/dL 12.2-16.4 H 718-7) HCT (test code = 51.1 % 38.4-49.3 H 4544-3) MCV (test code = 77.1 fL 81.7-95.6 L 787-2) MCH (test code = 25.0 pg 26.1-32.7 L 785-6) MCHC (test code = 32.5 g/dL 31.2-35 786-4) RDW-SD (test code = 39.0 fL 38.5-51.6 71904-8) RDW-CV (test code = 15.1 % 12.1-15.4 788-0) PLT (test code = See_Comment [Automated 777-3) message] The sy stem which generated this result transmitted reference range : 150 - 328 10*3/ ?L. The reference r klarissa was not used to interpret this result as normal/abnormal . MPV (test code = 8.9 fL 9.8-13 L 67533-4) NRBC/100 WBC (test See_Comment [Automat ed code = 5362746423) message] The system which generated this result transmitted reference range : 0.0 - 10.0 /100 WBCs. The refer ence range was not u sed to interpret th is result as normal/abnormal . NRBC x10^3 (test code <0.01 See_Comment [Auto mated = 3401198740) message] The s ystem which generated this result transmitted reference range : 10*3/?L. The reference range was not used to interpret this result as normal/abnormal . GRAN MAT (NEUT) % 59.9 % (test code = 770-8) IMM GRAN % (test code 1.00 % = 4361933688) LYMPH % (test code = 26.3 % 736-9) MONO % (test code = 12.2 % 5905-5) EOS % (test code = 0.2 % 713-8) BASO % (test code = 0.4 % 706-2) GRAN MAT x10^3(ANC) 3.06 10*3/uL 1.99-6.95 (test code = 8372859166) IMM GRAN x10^3 (test 0.05 10*3/uL 0-0.06 code = 4793136768) LYMPH x10^3 (test code 1.34 10*3/uL 1.09-3.23 = 731-0) MONO x10^3 (test code 0.62 10*3/uL 0.36-1.02 = 742-7) EOS x10^3 (test code = <0.03 0.06-0.53 L 711-2) BASO x10^3 (test code <0.03 0.01-0.09 = 704-7) Lab Interpretation Abnormal (test code = 55513-8) [facility] 1 [id number] 16:30:04HISTORY: Chest pain. TECHNIQUE: 2 Portable AP erect views of the chest were obtained. Comparisonmadewith 02/02/2019 study. FINDINGS: Abnormal findings are seen in the right lower lung, likelychronic pulmonary fibrosis secondary to prior infection with pleuralscarring in the vicinity. Left lung showedmild hyperinflation. Cardiacsize is normal. No acute pulmonary edema or pneumothorax or pleuraleffusi on. Thoracic aorta is elongated and tortuous. CONCLUSIONS: No signs of acute cardiopulmonary disease.[facility], Radiant Results Inft User - 04/13/2019 10:31 AM CSTHISTORY: Chest pain.TECHNIQUE: 2 Portable AP erect views of the chest were obtained. Comparisonmade with 02/02/2019 study.FINDINGS: Abnormal findings are seen in the right lower lung, likelychronic pulmonary fibrosis secondary to prior infectionwith pleuralscarring in the vicinity. Left lung showed mild hyperinflation. Cardiacsize is normal. No acute pulmonary edema or pneumothorax or pleuraleffusion. Thoracic aorta is elongated and tortuous.CONCLUSIONS: No signs of acute cardiopulmonary disease.[facility]"
[2021-11-08] MEDS ORDERED: NA CHLORIDE 0.9% 1,000 ML ONE (10:33)
[2021-11-08 10:58] LABS: Hematocrit 47.3 % (39.6-49.0); Lymphocytes % 22.8 % (15.3-44.8); MPV 7.1 fL (7.6-11.3); RBC Red Blood Cell Count 6.06 M/uL (4.33-5.43)
--- NOTE | 2021-11-08 11:02 | RAD REPORT ---
EXAM DESCRIPTION: RAD - Chest Single View - 11/08/2021 10:47 am CLINICAL HISTORY: Cough COMPARISON: Chest Single View dated 10/21/2021; Chest Single View dated 06/18/2020; Chest Single View da reggie 06/06/2020; Chest Single View dated 05/18/2020 FINDINGS: Lines: None. Lungs: Masslike scarring in the right lung is unchanged. No superimposed acute process identified. Pleural: No significant pleural effusions or pneumothorax. Cardiac: The heart size is within normal limits. Bones: No acute fractures. Other: Ectasia versus aneurysm of the thoracic aorta. IMPRESSION: No acute cardiopulmonary disease.
[2021-11-08] MEDS ORDERED: ONDANSETRON 4 MG/2 ML VIAL ONE (11:06)
[2021-11-08] MEDS ORDERED: MORPHINE 4 MG/ML SYR ONE (11:06)
[2021-11-08 11:16] LABS: Albumin 3.1 g/dL (3.4-5.0); Bilirubin Total 1.2 mg/dL (0.2-1.0); Potassium 3.6 mmol/L (3.5-5.1); Protein, Total 6.7 g/dL (6.4-8.2)
--- NOTE | 2021-11-08 11:38 | RAD REPORT ---
EXAM DESCRIPTION: CTAbdomen Pelvis Wo Contrast - 11/08/2021 11:17 am CLINICAL HISTORY: Abdominal pain, acute, nonlocalized COMPARISON: Abdomen Pelvis W Contrast dated 10/08/2019; Abdomen Pelvis Wo Contrast dated 0; Abdomen Pelvis W Contrast dated 08/23/2019; Stone Protocol dated 04/29/2019 TECHNIQUE: CT of the abdomen and pelvis was performed. All CT scans are performed using dose optimization technique as appropriate and may include automated exposure control or mA/KV adjustment according to patient size. FINDINGS: Lower chest: Dense pleural calcifications along the right hemithorax likely from prior ple urodesis. Multi-vessel coronary artery disease. Liver: No acute abnormality or suspicious lesions. Biliary: Cholecystectomy. Extrahepatic biliary ductal dilatation measuring 11 millimeters. This is si milar to 10/08/2019. Stomach: No significant focal abnormality. Duodenum: No significant focal abnormality. Pancreas: Mild pancreatic ductal dilatation noted. The pancreatic duct measures 5 millimeters. No sig nificant atrophy is identified. The findings are similar to 10/08/2019. Spleen: No significant abnormality. Adrenal: No suspicious lesions. Kidney/ureter: No hydronephrosis. No renal calculi. Left renal lesion measuring 5.1 cm has modestly i ncreased in size since 10/08/2019. Other renal lesions noted which are likely cysts. Retroperitoneum: No retroperitoneal adenopathy. Vascular: No aneurysm. Ectasia of the abdominal aorta. Bowel: No appendicitis. No bowel obstruction.. Peritoneum: No ascites or free air. Bladder: Grossly unremarkable. Reproductive: Prostatomegaly. Bones: No acute fracture. Right hip arthroplasty. 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 Advanced degenerative changes in the spine similar to 10/08/2019. Inferior endplate deformity at L2 is unchanged. Other: n/a IMPRESSION: No acute intra-abdominal or pelvic finding. Possible solid left renal mass only mildly e nlarged since 10/08/2019. Recommend palpation urologic referral. Incidental findings as noted above.
--- NOTE | 2021-11-08 12:19 | EDPHYS ---
Physician Documentation [facility] Name: Deacno Howe Jr Age: 85 yrs Sex: Male : 1935 Arrival Date: 11/08/2021 Time: 10:11 Bed 6 Private MD: ED Physician Sp Herron HPI: 11/08 12:05 This 85 yrs old Black Male presents to ER via EMS with complaints of Pain all over. rn 12:05 Pt reports "pain all over". Reports last week had nausea and diarrhea, seen in clinic, rn told was ok, now improved but feeling generalized weakness. No fever. No chest pain/cough. . Onset: The symptoms/episode began/occurred 3 day(s) ago. Severity of symptoms: At their worst the symptoms were mild in the emergency department the symptoms are unchanged. The patient has experienced similar episodes in the past. The patient has not recently seen a physician. Historical: - Allergies: 10:15 NKDA; ph - PSHx: 10:15 Cholecystectomy; hip; knee; ph - Immunization history:: Adult Immunizations unknown. - Social history:: Smoking status: Patient reports the use of cigarette tobacco products, smokes one-half pack cigarettes per day. - Family history:: not pertinent. - Hospitalizations: : No recent hospitalization is reported. ROS: 12:05 Constitutional: Negative for fever, chills, and weight loss, Eyes: Negative for injury, rn pain, redness, and discharge, Neck: Negative for injury, pain, and swelling, Cardiovascular: Negative for chest pain, palpitations, and edema, Respiratory: Negative for wheezing, and pleuritic chest pain Abdomen/GI: Negative for constipation Back: Negative for injury and pain, MS/Extremity: Negative for injury and deformity, Skin: Negative for injury, rash, and discoloration, Neuro: Negative for headache, numbness, tingling, and seizure. Exam: 12:05 Constitutional: This is a well developed, well nourished patient who is awake, alert, rn and in no acute distress. Head/Face: Normocephalic, atraumatic. ENT: dry MM Neck: Trachea midline, no thyromegaly or masses palpated, and no cervical lymphadenopathy. Supple, full range of motion without nuchal rigidity, or vertebral point tenderness. No Meningismus. Cardiovascular: Regular rate and rhythm. No pulse deficits. Respiratory: No increased work of breathing, no retractions or nasal flaring. Abdomen/GI: Soft, non-tender Skin: Warm, dry MS/ Extremity: Pulses equal, no cyanosis Neuro: Awake and alert, GCS 15, oriented to person, place, time, and situation. Cranial nerves II-XII grossly intact. Motor strength 5/5 in all extremities. Sensory grossly intact. Vital Signs: 10:13 BP 164 / 93; Pulse 65; Resp 18; Temp 98.0; Pulse Ox 100% on R/A; ph 11:30 BP 125 / 78; Pulse 64; Resp 18; Pulse Ox 98% on R/A; ph 12:30 BP 131 / 70; Pulse 67; Resp 18; Temp 97.9; Pulse Ox 99% on R/A; ph MDM: 10:13 Patient medically screened. rn 12:17 Differential Diagnosis viral infection, COVID, flu, dehydration. Data reviewed: vital rn signs, nurses notes, lab test result(s), radiologic studies, CT scan, and as a result, I will discharge patient. Counseling: I had a detailed discussion with the patient and/or guardian regarding: the historical points, exam findings, and any diagnostic results supporting the discharge/admit diagnosis, lab results, radiology results, the need for outpatient follow up, to return to the emergency department if symptoms worsen or persist or if there are any questions or concerns that arise at home. Response to treatment: the patient's symptoms have mildly improved after treatment, and as a result, I will discharge patient. Special discussion: I discussed with the patient/guardian in detail that at this point there is no indication for admission to the hospital. It is understood, however, that if the symptoms persist or worsen the patient needs to return immediately for re-evaluation. 11/08 10:14 Order name: CBC with Diff; Complete Time: 11: rn 11/08 10:14 Order name: CMP; Complete Time: rn 11/08 10:14 Order name: Lipase; Complete Time: rn 11/08 10:14 Order name: SARS-COV-2 RT PCR (Document "Date of Onset" if Symptomatic); Complete Time: rn 12:11/08 10:14 Order name: Flu; Complete Time: rn 11/08 10:14 Order name: BNP; Complete Time: 11:44 rn 11/08 10:14 Order name: IV Saline Lock; Complete Time: 11:27 rn 11/08 10:14 Order name: Labs collected and sent; Complete Time: 19:26 rn 11/08 10:14 Order name: XRAY Chest (1 view); Complete Time: 11:44 rn 11/08 11:06 Order name: Abdomen ; Complete Time: 11:44 EDMS 11/08 10:14 Order name: Urine Dipstick-Ancillary (obtain specimen); Complete Time: 19:27 rn Administered Medications: 10:45 Drug: NS 0.9% 1000 ml Route: IV; Rate: 1 bolus; Site: Other; ph 12:35 Follow up: Response: No adverse reaction; IV Status: Completed infusion; IV Intake: ph 1000ml 11:00 Drug: morphine 4 mg Route: IVP; Infused Over: 4 mins; Site: Other; ph 11:30 Follow up: Response: No adverse reaction ph 11:00 Drug: Zofran (Ondansetron) 4 mg Route: IVP; Site: Other; ph 11:30 Follow up: Response: No adverse reaction ph Disposition Summary: 11/08/21 12:19 Discharge Ordered Location: Home rn Problem: new rn Symptoms: have improved rn Condition: Stable rn Diagnosis - Muscle weakness (generalized) rn - Dehydration rn Followup: rn - With: Private Physician - When: As needed - Reason: Recheck today's complaints, Re-evaluation by your physician Discharge Instructions: - Discharge Summary Sheet rn - Dehydration, Adult rn - Weakness rn Forms: - Medication Reconciliation Form rn - Thank You Letter rn - Antibiotic journalism professor - Prescription Opioid Use rn Signatures: Dispatcher [employer] Sp Gallagher MD MD rn Hall, Patricia, RN RN ph Corrections: (The following items were deleted from the chart) 11: 10:19 Abdomen Pelvis W Con+CT.RAD.BRZ ordered. EDRI EDMS
--- NOTE | 2021-11-08 12:19 | ER ---
Nurse's Notes [facility] [place] Name: Deacon Howe Jr Age: 85 yrs Sex: Male : 1935 Arrival Date: 11/08/2021 Time: 10:11 Bed 6 Private MD: Diagnosis: Muscle weakness (generalized);Dehydration Presentation: 11/08 10:13 Chief complaint: EMS states: Pt c/o feeling weak, body aches, N/V, reports that ph symptoms began last night. Coronavirus screen: Vaccine status: Patient reports receiving the 2nd dose of the covid vaccine. Ebola Screen: No symptoms or risks identified at this time. Initial Sepsis Screen: Does the patient meet any 2 criteria? No. Patient's initial sepsis screen is negative. Does the patient have a suspected source of infection? No. Patient's initial sepsis screen is negative. Risk Assessment: Do you want to hurt yourself or someone else? Patient reports no desire to harm self or others. Onset of symptoms was November 08, 2021. 10:13 Method Of Arrival: EMS: [facility] 10:13 Acuity: ALIN 3 ph Triage Assessment: 10:15 General: Appears in no apparent distress. comfortable, Behavior is calm, cooperative, ph appropriate for age. Pain: Complains of pain in "all over". Neuro: Level of Consciousness is awake, alert, obeys commands, Oriented to person, place, time, situation. Cardiovascular: Capillary refill < 3 seconds in bilateral fingers Patient's skin is warm and dry. Respiratory: Airway is patent Respiratory effort is even, unlabored. GI: Reports diarrhea, nausea, vomiting, Patient currently denies abdominal pain. : No signs and/or symptoms were reported regarding the genitourinary system. Derm: Skin is fragile, is thin, Skin is pink, warm \\T\\ dry. Musculoskeletal: Circulation, motion, and sensation intact. Range of motion: intact in all extremities. Historical: - Allergies: 10:15 NKDA; ph - PSHx: 10:15 Cholecystectomy; hip; knee; ph - Immunization history:: Adult Immunizations unknown. - Social history:: Smoking status: Patient reports the use of cigarette tobacco products, smokes one-half pack cigarettes per day. - Family history:: not pertinent. - Hospitalizations: : No recent hospitalization is reported. Screenin:15 Abuse screen: Denies threats or abuse. Denies injuries from another. Nutritional ph screening: No deficits noted. Tuberculosis screening: No symptoms or risk factors identified. Fall Risk None identified. Assessment: 11:00 General: SEE TRIAGE ASSESSMENT. ph Vital Signs: 10:13 BP 164 / 93; Pulse 65; Resp 18; Temp 98.0; Pulse Ox 100% on R/A; ph 11:30 BP 125 / 78; Pulse 64; Resp 18; Pulse Ox 98% on R/A; ph 12:30 BP 131 / 70; Pulse 67; Resp 18; Temp 97.9; Pulse Ox 99% on R/A; ph ED Course: 10:11 Patient arrived in ED. ss 10:13 Sp Herron MD is Attending Physician. rn 10:13 Callie Hernandez RN is Primary Nurse. ph 10:14 Triage completed. ph 10:15 Arm band placed on Patient placed in an exam room, on a stretcher, on pulse oximetry. ph 10:15 Patient has correct armband on for positive identification. Bed in low position. Call ph light in reach. Side rails up X2. Pulse ox on. NIBP on. Door closed. Noise minimized. 10:48 Inserted saline lock: 22 gauge in right upper arm, using aseptic technique. dh3 10:49 XRAY Chest (1 view) In Process Unspecified. EDMS 11:19 Abdomen In Process Unspecified. EDMS 12:40 No provider procedures requiring assistance completed. IV discontinued, intact, ph bleeding controlled, No redness/swelling at site. Pressure dressing applied. Administered Medications: 10:45 Drug: NS 0.9% 1000 ml Route: IV; Rate: 1 bolus; Site: Other; ph 12:35 Follow up: Response: No adverse reaction; IV Status: Completed infusion; IV Intake: ph 1000ml 11:00 Drug: morphine 4 mg Route: IVP; Infused Over: 4 mins; Site: Other; ph 11:30 Follow up: Response: No adverse reaction ph 11:00 Drug: Zofran (Ondansetron) 4 mg Route: IVP; Site: Other; ph 11:30 Follow up: Response: No adverse reaction ph Medication: 10:15 VIS not applicable for this client. ph Intake: 12:35 IV: 1000ml; Total: 1000ml. ph Outcome: 12:19 Discharge ordered by . rn 12:40 Discharged to home via wheelchair. ph 12:40 Condition: good 12:40 Discharge instructions given to patient, Instructed on discharge instructions, follow up and referral plans. Demonstrated understanding of instructions, follow-up care. 12:43 Patient left the ED. kj1 Signatures: Dispatcher [employer] EDMS Sp Herron MD MD rn Smirch, Shelby, RN RN Callie Hernandez RN RN [place] [id number] Mee Up kj1
[2021-11-08 13:32] VITALS: BP 164/93; TEMP 98; O2SAT 100
== END 2021-11-08 12:43 | disposition home or self-care (01) ==
LOC: ER 10:10
DX: E86.0 Dehydration (principal); Z20.822 Contact with and (suspected) exposure to COVID-19; F17.210 Nicotine dependence, cigarettes, uncomplicated
CPT/HCPCS: 96361; 85025; 36415; 83690; 80053; 83880; 87804 ×2; 74176; 71045; 96375; 96374; 99284; U0003; J7030; J2405

== ENCOUNTER 2021-11-09 10:16 | Emergency (ER) | payer OTHER ==
--- OUTSIDE RECORDS SUMMARY | 2021-11-09 10:19 | XMS REPORT | Continuity of Care Document ---
:1935 Author Organization [facility] t Address [address] [place] [address] Support Name Relationship Address Phone MD MARGARITO Emergency Provider [address] [place] [address] PHYSICIAN, NO Primary Care Physician Unavailable Unavailab deven BRAD CARROLL Family Member [address] [place] [address] LEIDY PASTRANA Primary Care Physician [address] [place] [address] MD VIVEK PENN Emergency Provider Unavailable Unavailable MD MARLEY GUERRA A Emergency Provider [facility] [place] [address] BRAD RIVAS Family Member [address] [place] [address] MD [facility] Admitting Provider [address] [place] [address] MD JAVAN NASCIMENTO JR Admitting Provider [address] [place] [address] MD RILEY RIVIERA Emergency Provider [email or web address] [address] MD JENNIFER Emergency Provider [address] [place] [address] MD BEVERLEY SEGAL Emergency Provider [address] [place] [address] MD CLAUDIA HERRING Emergency Provider [address] [place] [address] MD CINDY SCHWARZ Emergency Provider [address] [place] [address] MD SENTHIL TERRY Emergency Provider [address] [phone] [place] [address] MD JIGNESH DAWSON Emergency Provider [address] [phone] [place] [address] Care Team Providers Name Role Phone Pillo_Lee Attending Clinician Unavailable Young_J Admitting Clinician Unavailable Payers Payer Name Policy Type Policy Number Effective Date Expiration Date Gaviota petit [place]ARE [place]: [id number] 2002 [employer] 00:00:00 [employer] [id number] 2019 [facility] (MEDICAID 00:00:00 HMO) Problems This patient has no known problems. Allergies, Adverse Reactions, Alerts This patient has no known allergies or adverse reactions. Medications This patient has no known medications. Procedures This patient has no known procedures. Encounters Start End Encounter Admission Attending Care Care Encounter Source Date/Time Date/Time Type Type Clinicians Facility Department ID 2020-12-04 2020-12-04 Outpatient [facility] [id number] [facility] 02:27:00 02:27:00 [facility] 2020-12-03 2020-12-03 Outpatient [facility] [id number] [place] 02:48:00 02:48:00 [facility] Results This patient has no known results.
[2021-11-09 11:46] LABS: Absolute Lymphocytes (CBC) 1.4 K/uL (0.7-4.9); Hematocrit 47.2 % (39.6-49.0); Lymphocytes % 27.3 % (15.3-44.8); MCV 77.7 fL (80-100); MPV 7.1 fL (7.6-11.3); RBC Red Blood Cell Count 6.07 M/uL (4.33-5.43)
[2021-11-09] MEDS ORDERED: NA CHLORIDE 0.9% 1,000 ML ONE (11:51)
[2021-11-09] MEDS ORDERED: HYDROCODONE/APAP 5/325 MG TAB ONE (11:51)
[2021-11-09 12:05] LABS: Albumin 3.3 g/dL (3.4-5.0); Potassium 3.9 mmol/L (3.5-5.1); Protein, Total 6.8 g/dL (6.4-8.2)
--- NOTE | 2021-11-09 12:52 | ER ---
Nurse's Notes [facility] Name: Deacon Howe Jr Age: 85 yrs Sex: Male : 1935 Arrival Date: 11/09/2021 Time: 10:17 Bed 23 Private MD: Diagnosis: Dehydration;Muscle weakness (generalized) Presentation: 11/09 10:27 Chief complaint: Patient states: abd pain. Pt was seen in ER yesterday for same ss complaints. Coronavirus screen: Client denies travel out of the [place] in the last 14 days. Ebola Screen: Patient denies exposure to infectious person. Patient denies travel to an Ebola-affected area in the 21 days before illness onset. Initial Sepsis Screen: Does the patient meet any 2 criteria? No. Patient's initial sepsis screen is negative. Does the patient have a suspected source of infection? No. Patient's initial sepsis screen is negative. Risk Assessment: Do you want to hurt yourself or someone else? Patient reports no desire to harm self or others. Onset of symptoms is unknown. 10:27 Method Of Arrival: EMS: [facility] 10:27 Acuity: ALIN 3 ss Triage Assessment: 10:35 General: Appears in no apparent distress. Behavior is cooperative, appropriate for age. ph Pain: Complains of pain in "all over". Neuro: Level of Consciousness is awake, alert, obeys commands, Oriented to person, place, time, situation, Reports weakness "all over". Cardiovascular: Capillary refill < 3 seconds in bilateral fingers Patient's skin is warm and dry. Respiratory: Airway is patent Respiratory effort is even, unlabored, Respiratory pattern is regular, symmetrical. Derm: Skin is fragile, is thin, Skin is pink, warm \\T\\ dry. Musculoskeletal: Circulation, motion, and sensation intact. Range of motion: intact in all extremities. Historical: - Allergies: 10:28 NKDA; ss - PSHx: 10:28 Cholecystectomy; hip; knee; ss - Family history:: not pertinent. - Hospitalizations: : No recent hospitalization is reported. Screenin:50 Abuse screen: Denies threats or abuse. Denies injuries from another. Nutritional ph screening: No deficits noted. Tuberculosis screening: No symptoms or risk factors identified. Fall Risk None identified. Assessment: 11:53 General: SEE TRIAGE ASSESSMENT. ph 13:12 Reassessment: Patient appears in no apparent distress at this time. Patient and/or ss family updated on plan of care and expected duration. Pain level reassessed. Patient is alert, oriented x 3, equal unlabored respirations, skin warm/dry/pink. Vital Signs: 10:56 BP 145 / 89; Pulse 72; Resp 18; Temp 98.0; Pulse Ox 99% on R/A; ph ED Course: 10:17 Patient arrived in ED. eb 10:17 Sp Herron MD is Attending Physician. rn 10:28 Triage completed. ss 10:28 Arm band placed on right wrist. ss 10:56 Callie Hernandez, RN is Primary Nurse. ph 13:12 Patient has correct armband on for positive identification. ss 13:12 No provider procedures requiring assistance completed. IV discontinued, intact, ss bleeding controlled, No redness/swelling at site. Pressure dressing applied. Administered Medications: 11:56 Drug: NS 0.9% 1000 ml Route: IV; Rate: 1 bolus; Site: Other; ph 12:30 Follow up: Response: No adverse reaction; IV Status: Completed infusion; IV Intake: ph 1000ml 11:56 Drug: [place] (HYDROcodone-acetaminophen) 5 mg-325 mg 1 tabs Route: PO; ph 12:30 Follow up: Response: No adverse reaction ph Medication: 11:50 VIS not applicable for this client. ph Intake: 12:30 IV: 1000ml; Total: 1000ml. ph Outcome: 12:51 Discharge ordered by . rn 13:12 Discharged to home ss 13:12 Condition: good 13:12 Discharge instructions given to patient, Instructed on discharge instructions, follow up and referral plans. Demonstrated understanding of instructions, follow-up care. 13:13 Patient left the ED. ss Signatures: Sp Herron MD MD rn Smirch, Shelby, RN RN Callie Hernandez RN RN Nena Oliva
--- NOTE | 2021-11-09 12:52 | EDPHYS ---
Physician Documentation [facility] Name: Deacon Howe Jr Age: 85 yrs Sex: Male : 1935 Arrival Date: 11/09/2021 Time: 10:17 Bed 23 Private MD: ED Physician Sp Herron HPI: 11/09 11:32 This 85 yrs old Black Male presents to ER via EMS with complaints of generalized pain rn and malaise. 11:32 Pt seen here yesterday for malaise and generalized pain. Reports COVID recently and rn stomach bug, got over it. Went to [place] today and felt weak. No vomiting/diarrhea. No chest pain or sob. . Onset: The symptoms/episode began/occurred 1 week(s) ago. Severity of symptoms: At their worst the symptoms were mild in the emergency department the symptoms are unchanged. The patient has experienced similar episodes in the past. The patient has been recently seen at the [facility] Emergency Department, yesterday. Historical: - Allergies: 10:28 NKDA; ss - PSHx: 10:28 Cholecystectomy; hip; knee; ss - Family history:: not pertinent. - Hospitalizations: : No recent hospitalization is reported. ROS: 11:32 Constitutional: Negative for fever, chills, and weight loss, Eyes: Negative for injury, rn pain, redness, and discharge, Cardiovascular: Negative for chest pain, palpitations, and edema, Respiratory: Negative for shortness of breath, cough, wheezing, and pleuritic chest pain, Abdomen/GI: Negative for abdominal pain, nausea, vomiting, diarrhea, and constipation, Back: Negative for injury and pain, MS/Extremity: Negative for injury and deformity, Skin: Negative for injury, rash, and discoloration, Neuro: Negative for headache, numbness, tingling, and seizure. Exam: 11:32 Constitutional: This is a well developed, well nourished patient who is awake, alert, rn and in no acute distress. Head/Face: Normocephalic, atraumatic. Cardiovascular: Regular rate and rhythm. No pulse deficits. Respiratory: No increased work of breathing, no retractions or nasal flaring. Abdomen/GI: Soft, non-tender Skin: Warm, dry MS/ Extremity: Pulses equal, no cyanosis. Neuro: Awake and alert, GCS 15 Vital Signs: 10:56 BP 145 / 89; Pulse 72; Resp 18; Temp 98.0; Pulse Ox 99% on R/A; ph MDM: 10:17 Patient medically screened. rn 12:49 Differential Diagnosis viral syndrome, dehydration. rn 12:50 Data reviewed: vital signs, nurses notes, old medical records, lab test result(s), and rn as a result, I will discharge patient. Counseling: I had a detailed discussion with the patient and/or guardian regarding: the historical points, exam findings, and any diagnostic results supporting the discharge/admit diagnosis, lab results, the need for outpatient follow up, to return to the emergency department if symptoms worsen or persist or if there are any questions or concerns that arise at home. Response to treatment: the patient's symptoms have markedly improved after treatment, ambulatory to bathroom without assistance. Response to treatment: and as a result, I will discharge patient. Special discussion: I discussed with the patient/guardian in detail that at this point there is no indication for admission to the hospital. It is understood, however, that if the symptoms persist or worsen the patient needs to return immediately for re-evaluation. Special discussion: Based on the history and exam findings, there is no indication for further emergent testing or inpatient evaluation. I discussed with the patient/guardian the need to see the primary care provider for further evaluation of the symptoms. 11/09 10:20 Order name: CBC with Diff; Complete Time: 12:15 rn 11/09 10:20 Order name: CMP; Complete Time: 12:15 rn 11/09 10:20 Order name: Lipase; Complete Time: 12:15 rn 11/09 10:20 Order name: IV Saline Lock; Complete Time: 11:41 rn 11/09 10:20 Order name: Labs collected and sent; Complete Time: 11:41 rn Administered Medications: 11:56 Drug: NS 0.9% 1000 ml Route: IV; Rate: 1 bolus; Site: Other; ph 12:30 Follow up: Response: No adverse reaction; IV Status: Completed infusion; IV Intake: ph 1000ml 11:56 Drug: [place] (HYDROcodone-acetaminophen) 5 mg-325 mg 1 tabs Route: PO; ph 12:30 Follow up: Response: No adverse reaction ph Disposition Summary: 11/09/21 12:51 Discharge Ordered Location: Home rn Problem: an ongoing problem rn Symptoms: have improved rn Condition: Stable rn Diagnosis - Dehydration rn - Muscle weakness (generalized) rn Followup: rn - With: Private Physician - When: As needed - Reason: Recheck today's complaints, Re-evaluation by your physician Discharge Instructions: - Discharge Summary Sheet rn - Dehydration, Adult rn - Weakness rn Forms: - Medication Reconciliation Form rn - Thank You Letter rn - 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
[2021-11-09 13:18] VITALS: BP 145/89; TEMP 98; O2SAT 99
== END 2021-11-09 13:13 | disposition home or self-care (01) ==
LOC: ER 10:16
DX: E86.0 Dehydration (principal)
CPT/HCPCS: 85025; 36415; 83690; 80053; J7030; 96360; 99283

== ENCOUNTER 2021-11-09 15:31 | Emergency (ER) | payer OTHER ==
--- OUTSIDE RECORDS SUMMARY | 2021-11-09 15:34 | XMS REPORT | Continuity of Care Document ---
:1935 Author Organization [facility] t Address [address] [place] [address] Support Name Relationship Address Phone MD MARGARITO Emergency Provider [address] [place] [address] PHYSICIAN, NO Primary Care Physician Unavailable Unavailab deven BRAD CARROLL Family Member [address] [place] [address] LEIDY PASTRANA Primary Care Physician [address] [facility] [place] [address] MD VIVEK PENN Emergency Provider Unavailable Unavailable MD MARLEY GUERRA A Emergency Provider [place] [address] BRAD RIVAS Family Member [address] [place] [address] MD [facility] Admitting Provider [address] [place] [address] MD JAVAN NASCIMENTO JR Admitting Provider [address] [place] [address] MD RILEY [place] Emergency Provider [email or web address] [address] MD JENNIFER Emergency Provider [address] [place] [address] MD BEVERLEY SEGAL Emergency Provider [address] [place] [address] MD CLAUDIA HERRING Emergency Provider [address] [place] [address] MD CINDY SCHWARZ Emergency Provider [address] [phone] [place] [address] MD SENTHIL TERRY Emergency Provider [address] [phone] [place] [address] MD JIGNESH DAWSON Emergency Provider [address] [phone] [place] [address] Care Team Providers Name Role Phone Pillo_Lee Attending Clinician Unavailable Young_J Admitting Clinician Unavailable Payers Payer Name Policy Type Policy Number Effective Date Expiration Date Gaviota petit MEDICARE [place]: [id number] 2002 [employer] 00:00:00 [employer] [id number] 2019 [facility] (MEDICAID 00:00:00 HMO) Problems This patient has no known problems. Allergies, Adverse Reactions, Alerts This patient has no known allergies or adverse reactions. Medications This patient has no known medications. Procedures This patient has no known procedures. Encounters Start End Encounter Admission Attending Care Care Encounter Source Date/Time Date/Time Type Type Clinicians Facility Department ID 2020-12-04 2020-12-04 Outpatient [facility] [id number] [place] 02:27:00 02:27:00 [facility] 2020-12-03 2020-12-03 Outpatient [facility] [id number] [place] 02:48:00 02:48:00 [facility] Results This patient has no known results.
[2021-11-09] MEDS ORDERED: HYDROCODONE/APAP 10/325 TAB ONE (16:23)
--- NOTE | 2021-11-09 16:39 | EDPHYS ---
Physician Documentation [facility] Name: Deacon Howe Jr Age: 85 yrs Sex: Male : 1935 Arrival Date: 11/09/2021 Time: 15:35 Bed Waiting Private MD: ED Physician Sp Herron HPI: 11/09 16:10 This 85 yrs old Black Male presents to ER via Wheelchair with complaints of Abdominal rn Pain, weakness. 16:10 Pt signed back in to triage after discharge, states having trouble getting a ride and rn would like to stay overnight. States still having abd cramping and would like pain medication. No new symptoms. Onset: The symptoms/episode began/occurred 1 week(s) ago. Severity of symptoms: At their worst the symptoms were mild in the emergency department the symptoms are unchanged. The patient has experienced similar episodes in the past. The patient has been recently seen at the [facility] Emergency Department, today. Historical: - Allergies: 16:07 NKDA; hb - PSHx: 16:07 Cholecystectomy; hip; knee; hb - Immunization history:: Adult Immunizations up to date. - Social history:: Smoking status: Patient/guardian denies using tobacco. - Family history:: not pertinent. - Hospitalizations: : No recent hospitalization is reported. ROS: 16:10 Constitutional: Negative for fever, chills, and weight loss, Eyes: Negative for injury, rn pain, redness, and discharge, Neck: Negative for injury, pain, and swelling, Cardiovascular: Negative for chest pain, palpitations, and edema, Respiratory: Negative for shortness of breath, cough, wheezing, and pleuritic chest pain, Abdomen/GI: + abd cramping, negative for vomiting/diarrhea MS/Extremity: Negative for injury and deformity, Skin: Negative for injury, rash, and discoloration, Neuro: Negative for headache, numbness, tingling, and seizure. Exam: 16:10 Constitutional: This is a well developed, well nourished patient who is awake, alert, rn and in no acute distress. Head/Face: Normocephalic, atraumatic. Cardiovascular: Regular rate and rhythm. No pulse deficits. Respiratory: No increased work of breathing, no retractions or nasal flaring. Abdomen/GI: soft, non-tender, non-distended Skin: Warm, dry MS/ Extremity: Pulses equal, no cyanosis. Neuro: Awake and alert, GCS 15 Vital Signs: 16:06 BP 173 / 79; Pulse 61; Resp 18; Temp 97.9(TE); Pulse Ox 100% ; Pain 10/10; hb MDM: 15:48 Patient medically screened. rn 16:34 Differential Diagnosis viral syndrome, dehydration. Data reviewed: vital signs, nurses rn notes, old medical records, and as a result, I will discharge patient. Counseling: I had a detailed discussion with the patient and/or guardian regarding: the historical points, exam findings, and any diagnostic results supporting the discharge/admit diagnosis, the need for outpatient follow up, to return to the emergency department if symptoms worsen or persist or if there are any questions or concerns that arise at home. Response to treatment: the patient's symptoms have mildly improved after treatment, and as a result, I will discharge patient. Special discussion: I discussed with the patient/guardian in detail that at this point there is no indication for admission to the hospital. It is understood, however, that if the symptoms persist or worsen the patient needs to return immediately for re-evaluation. Administered Medications: 16:20 Drug: [place] (HYDROcodone-acetaminophen) 10 mg-325 mg 1 tabs Route: PO; hb 16:40 Follow up: Response: Medication administered at discharge. 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
--- NOTE | 2021-11-09 16:39 | ER ---
Nurse's Notes [facility] Name: Deacon Howe Jr Age: 85 yrs Sex: Male : 1935 Arrival Date: 11/09/2021 Time: 15:35 Bed Waiting Private MD: Diagnosis: Other malaise and fatigue;Other abdominal pain Presentation: 11/09 16:06 Chief complaint: Abdominal pain and SOB since this morning. Coronavirus screen: At this hb time, the client does not indicate any symptoms associated with coronavirus-19. Ebola Screen: No symptoms or risks identified at this time. Initial Sepsis Screen: Does the patient meet any 2 criteria? No. Patient's initial sepsis screen is negative. Does the patient have a suspected source of infection? No. Patient's initial sepsis screen is negative. Risk Assessment: Do you want to hurt yourself or someone else? Patient reports no desire to harm self or others. Onset of symptoms was November 09, 2021. 16:06 Method Of Arrival: Wheelchair hb 16:06 Acuity: ALIN 3 hb Triage Assessment: 16:15 General: Appears in no apparent distress. Behavior is cooperative. Pain: Pain currently hb is 10 out of 10 on a pain scale. 16:15 Neuro: Level of Consciousness is awake, alert, obeys commands, Oriented to person, hb place, time, situation. Cardiovascular: Patient's skin is warm and dry. Respiratory: Respiratory effort is even, unlabored, Respiratory pattern is regular, symmetrical. GI: Reports lower abdominal pain, upper abdominal pain. Historical: - Allergies: 16:07 NKDA; hb - PSHx: 16:07 Cholecystectomy; hip; knee; hb - Immunization history:: Adult Immunizations up to date. - Social history:: Smoking status: Patient/guardian denies using tobacco. - Family history:: not pertinent. - Hospitalizations: : No recent hospitalization is reported. Screenin:39 Abuse screen: Denies threats or abuse. Denies injuries from another. Nutritional hb screening: No deficits noted. Tuberculosis screening: No symptoms or risk factors identified. Fall Risk None identified. Assessment: 16:39 General: SEE TRIAGE ASSESSMENT. hb Vital Signs: 16:06 BP 173 / 79; Pulse 61; Resp 18; Temp 97.9(TE); Pulse Ox 100% ; Pain 10/10; hb ED Course: 15:35 Patient arrived in ED. as 15:48 Sp Herron MD is Attending Physician. rn 16:07 Triage completed. hb 16:07 Arm band placed on. hb 16:39 Patient has correct armband on for positive identification. hb 16:39 No provider procedures requiring assistance completed. Patient did not have IV access hb during this emergency room visit. Administered Medications: 16:20 Drug: [place] (HYDROcodone-acetaminophen) 10 mg-325 mg 1 tabs Route: PO; hb 16:40 Follow up: Response: Medication administered at discharge. hb Medication: 16:39 VIS not applicable for this client. hb Outcome: 16:39 Discharge ordered by . rn 16:40 Discharged to home ambulatory. hb 16:40 Condition: stable 16:40 Discharge instructions given to patient, Instructed on discharge instructions, follow up and referral plans. medication usage, Demonstrated understanding of instructions, follow-up care, medications. 16:40 Patient left the ED. hb Signatures: Alyse Marmolejo as Sp Herron MD MD rn Baxter, Heather RN RN hb
[2021-11-09 17:29] VITALS: BP 173/79; TEMP 97.9; O2SAT 100
== END 2021-11-09 16:40 | disposition home or self-care (01) ==
LOC: ER 15:31
DX: R10.9 Unspecified abdominal pain (principal); R53.81 Other malaise; R53.83 Other fatigue
CPT/HCPCS: 99283

== ENCOUNTER 2021-11-11 03:54 | Emergency (ER) | payer OTHER ==
--- OUTSIDE RECORDS SUMMARY | 2021-11-11 03:56 | XMS REPORT | Continuity of Care Document ---
:1935 Author Organization [facility] t Address [address] [place] [address] Support Name Relationship Address Phone MD MARGARITO Emergency Provider [address] [place] [address] PHYSICIAN, NO Primary Care Physician Unavailable Unavailab deven BRAD CARROLL Family Member [address] [place] [address] LEIDY PASTRANA Primary Care Physician [address] [facility] [place] [address] MD VIVEK PENN Emergency Provider Unavailable Unavailable MD MARLEY GUERRA A Emergency Provider [facility] [place] [address] BRAD RIVAS Family Member [address] [place] [address] MD [facility] Admitting Provider [address] [place] [address] MD JAVAN NASCIMENTO JR Admitting Provider [address] [place] [address] MD RILEY SUSQUEHANNA Emergency Provider [email or web address] [address] MD JENNIFER Emergency Provider [address] [place] [address] MD BEVERLEY SEAGL Emergency Provider [address] [place] [address] MD CLAUDIA HERRING Emergency Provider [address] [phone] [place] [address] MD CINDY SCHWARZ Emergency Provider [address] [place] [address] MD SENTHIL TERRY Emergency Provider [address] [place] [address] MD JIGNESH DAWSON Emergency Provider [address] [place] [address] Care Team Providers Name Role Phone Pillo_Lee Attending Clinician Unavailable Young_J Admitting Clinician Unavailable Payers Payer Name Policy Type Policy Number Effective Date Expiration Date Gaviota petit [place]ARE [place]: [id number] 2002 [employer] 00:00:00 Activation Life [id number] 2019 [facility] (MEDICAID 00:00:00 HMO) Problems This patient has no known problems. Allergies, Adverse Reactions, Alerts This patient has no known allergies or adverse reactions. Medications This patient has no known medications. Procedures This patient has no known procedures. Encounters Start End Encounter Admission Attending Care Care Encounter Source Date/Time Date/Time Type Type Clinicians Facility Department ID 2020-12-04 2020-12-04 Outpatient [id number] [facility] 02:27:00 02:27:00 [facility] 2020-12-03 2020-12-03 Outpatient [id number] [place] 02:48:00 02:48:00 [facility] Results This patient has no known results.
[2021-11-11 06:08] LABS: Urine Blood Trace-lysed (Negative); Urine Glucose Negative (Negative); Urine Protein Trace (Negative); Urine Specific Gravity 1.025 (1.005-1.030)
[2021-11-11 06:36] LABS: Absolute Lymphocytes (CBC) 0.9 K/uL (0.7-4.9); Hematocrit 51.4 % (39.6-49.0); Lymphocytes % 16.9 % (15.3-44.8); MCV 78.7 fL (80-100); MPV 7.3 fL (7.6-11.3); RBC Red Blood Cell Count 6.54 M/uL (4.33-5.43)
[2021-11-11 06:48] LABS: SARS-CoV-2 Antigen Rapid Res Negative (Negative)
[2021-11-11 06:50] LABS: Barbiturates NEGATIVE (NEGATIVE); Benzodiazepines NEGATIVE (NEGATIVE); Cocaine POSITIVE (NEGATIVE); METHAMPHETAM NEGATIVE (NEGATIVE); Methadone NEGATIVE (NEGATIVE); Opiates NEGATIVE (NEGATIVE); Phencyclidine NEGATIVE (NEGATIVE); THC Cannibis NEGATIVE (NEGATIVE)
[2021-11-11 06:52] LABS: ALT/SGPT 28 U/L (12-78); AST/SGOT 25 U/L (15-37); Albumin 3.5 g/dL (3.4-5.0); Alkaline Phosphatase 78 U/L (45-117); BUN Blood Urea Nitrogen 7 mg/dL (7-18); Bicarbonate 27 mmol/L (21-32); Bilirubin Direct 0.4 mg/dL (0-0.2); Bilirubin Total 1.3 mg/dL (0.2-1.0); Glomerular Filtration Rate 76 ml/min (=/>90); Glucose Level 101 mg/dL (74-106); Lipase 64 U/L (73-393); Magnesium 1.9 mg/dL (1.8-2.4); NT PRO-BNP 450 pg/mL (<450); Potassium 3.7 mmol/L (3.5-5.1); Protein, Total 7.8 g/dL (6.4-8.2); Sodium Level 135 mmol/L (136-145); Troponin High Sensitivity 13.9 pg/mL (<58.9)
[2021-11-11] MEDS ORDERED: HYDRALAZINE HCL 20 MG/ML VIAL ONE (07:00)
[2021-11-11] MEDS ORDERED: AMLODIPINE 10 MG TAB ONE (07:00)
[2021-11-11] MEDS ORDERED: MORPHINE 4 MG/ML SYR ONE (07:00)
[2021-11-11] MEDS ORDERED: ONDANSETRON 4 MG/2 ML VIAL ONE (07:01)
[2021-11-11] MEDS ORDERED: NA CHLORIDE 0.9% 1,000 ML ONE (07:01)
[2021-11-11] MEDS ORDERED: FAMOTIDINE 20 MG/2 ML VIAL IV ONE (07:01)
[2021-11-11 07:50] LABS: Protime INR 1.03
[2021-11-11] MEDS ORDERED: NA CHLORIDE 0.9% 500 ML ONE (08:00)
--- NOTE | 2021-11-11 08:24 | RAD REPORT ---
EXAM DESCRIPTION: CT - Abdomen Pelvis W Contrast - 11/11/2021 8:06 am CLINICAL HISTORY: Abdominal pain COMPARISON: 2019 an November 08, 2021 TECHNIQUE: Computed axial tomography of the abdomen pelvis was obtained. 100 cc Isovue-300 was admin istered intravenously. Oral contrast was given All CT scans are performed using dose optimization technique as appropriate and may include automated exposure control or mA/KV adjustment according to patient size. FINDINGS: Liver, spleen, pancreas and adrenals unremarkable. Bilateral simple renal cysts. 5 centimeter complex cystic left renal mass left kidney has enlarged 2019. Mild prostatic enlargement. 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 Chronic right pleural calcification. Atherosclerotic disease IMPRESSION: 5 centimeter complex cystic left renal mass has enlarged since 2019. It may represent a benign cyst or cystic neoplasm.
--- NOTE | 2021-11-11 08:32 | ER ---
Nurse's Notes [facility] Name: Deacon Howe Jr Age: 85 yrs Sex: Male : 1935 Arrival Date: 11/11/2021 Time: 04:01 Bed 4 Private MD: Diagnosis: Abdominal pain, Generalized;Cocaine abuse;Essential (primary) hypertension Presentation: 11/11 05:58 Chief complaint: EMS states: they were toned out for report of pt with abdominal pain bb which he has been seen here for the same thing several times this week. Coronavirus screen: At this time, the client does not indicate any symptoms associated with coronavirus-19. Ebola Screen: No symptoms or risks identified at this time. Initial Sepsis Screen: Does the patient meet any 2 criteria? No. Patient's initial sepsis screen is negative. Does the patient have a suspected source of infection? No. Patient's initial sepsis screen is negative. Risk Assessment: Do you want to hurt yourself or someone else? Patient reports no desire to harm self or others. Onset of symptoms is unknown. 05:58 Method Of Arrival: EMS: [facility] bb 05:58 Acuity: ALIN 3 bb Triage Assessment: 07:30 General: Appears in no apparent distress. Behavior is calm, cooperative, appropriate jg9 for age. Pain: Complains of pain in left lower quadrant and right lower quadrant and left upper quadrant and right upper quadrant Pain currently is 6 out of 10 on a pain scale. EENT: No deficits noted. Neuro: No deficits noted. Cardiovascular: No deficits noted. Respiratory: No deficits noted. GI: Reports lower abdominal pain, upper abdominal pain. : No deficits noted. Derm: Skin is dry. Musculoskeletal: No deficits noted. Historical: - Allergies: 06:00 NKDA; bb - PSHx: 07:43 Cholecystectomy; hip; knee; jg9 - Immunization history:: Adult Immunizations unknown. - Social history:: Smoking status: unknown Patient uses street drugs, cocaine. - Family history:: not pertinent. Screenin:42 Abuse screen: Denies threats or abuse. Denies injuries from another. Nutritional jg9 screening: No deficits noted. Tuberculosis screening: No symptoms or risk factors identified. Fall Risk Fall in past 12 months (25 points). Assessment: 07:30 GI: Bowel sounds present X 4 quads. Abd is soft and non tender X 4 quads. jg9 08:00 Reassessment: Patient and/or family updated on plan of care and expected duration. Pain jg9 level reassessed. Patient is alert, oriented x 3, equal unlabored respirations, skin warm/dry/pink. Patient states feeling better. Patient states symptoms have improved. Vital Signs: 05:58 BP 210 / 105; Pulse 60; Resp 16 S; Temp 97.7(O); Pulse Ox 100% on R/A; Weight 68.18 kg bb (R); Height 6 ft. 1 in. (185.42 cm) (R); 07:00 BP 172 / 87; Pulse 68; Resp 13 S; Pulse Ox 100% ; jg9 07:30 BP 182 / 94; Pulse 60; Resp 18 S; Pulse Ox 100% on R/A; Pain 6/10; jg9 08:30 BP 164 / 84; Pulse 64; Resp 16 S; Pulse Ox 100% ; jg9 05:58 Body Mass Index 19.83 (68.18 kg, 185.42 cm) bb ED Course: 04:01 Patient arrived in ED. bp1 04:03 Vipul Castillo MD is Attending Physician. martin 04:30 XRAY Chest (1 view) In Process Unspecified. EDMS 06:00 Triage completed. bb 06:00 Arm band placed on Patient placed in an exam room, on a stretcher, on pulse oximetry. bb 06:30 Missed attempt(s): 20 gauge in right in left antecubital area. Bleeding controlled, bb band aid applied, catheter tip intact. 06:39 Initial lab(s) drawn, by ED staff, sent to lab. Urine collected: clean catch specimen, bb cloudy, COVID swab sent to lab. 06:52 EKG done, by ED staff, reviewed by Vipul Castillo MD. wm 06:56 ETOH Level Sent. wm 06:56 Ptt, Activated Sent. wm 06:57 Salicylate Sent. wm 06:57 PT-INR Sent. wm 07:23 Lactate Sent. wm 07:29 Attending Physician role handed off by Vipul Castillo MD ms3 07:29 Eduardo Perea DO is Attending Physician. ms3 07:40 Dee Dee Pan, MARYANNE is Primary Nurse. jg9 07:43 Patient has correct armband on for positive identification. Bed in low position. Call jg9 light in reach. Side rails up X 1. 08:09 CT Abd/Pelvis - PO and IV Contrast In Process Unspecified. EDMS 08:31 Rocco Menjivar MD is Referral Physician. ms3 08:45 Sadiq Nevarez MD is Referral Physician. ms3 08:53 No provider procedures requiring assistance completed. jg9 08:53 IV discontinued. jg9 Administered Medications: 06:55 Drug: Norvasc (amlodipine) 10 mg Route: PO; kl 09:01 Follow up: Response: No adverse reaction; Blood pressure is lowered jg9 06:55 Drug: hydrALAZINE 10 mg Route: IVP; Site: right jugular; kl 09:01 Follow up: Response: No adverse reaction; Blood pressure is lowered jg9 07:00 Drug: morphine 4 mg Route: IVP; Infused Over: 4 mins; Site: right jugular; kl 09:02 Follow up: Response: No adverse reaction; Pain is decreased jg9 07:03 Drug: NS 0.9% 1000 ml Route: IV; Rate: 1 bolus; Site: left jugular; kl 08:17 Follow up: IV Status: Completed infusion; IV Intake: 1000ml jg9 07:03 Drug: Zofran (Ondansetron) 4 mg Route: IVP; Site: right jugular; kl 09:01 Follow up: Response: No adverse reaction; Pain is decreased jg9 07:04 Drug: Pepcid (famotidine) 20 mg Route: IVP; Site: right jugular; kl 08:17 Drug: NS 0.9% 500 ml Route: IV; Rate: bolus; Site: right jugular; jg9 09:00 Follow up: IV Status: Completed infusion; IV Intake: 500ml jg9 Medication: 08:53 VIS not applicable for this client. jg9 Intake: 08:17 IV: 1000ml; Total: 1000ml. jg9 09:00 IV: 500ml; Total: 1500ml. jg9 Outcome: 08:32 Discharge ordered by . ms3 08:53 Discharged to home via wheelchair. jg9 08:53 Condition: improved 08:53 Discharge instructions given to patient, Instructed on discharge instructions, follow up and referral plans. Demonstrated understanding of instructions, follow-up care, Prescriptions given X 3. 09:01 Patient left the ED. jg9 Signatures: Dispatcher [employer] EDGiovana De La Cruz, RN Vipul Schwartz MD MD cha Ballard, Brenda, RN RN Eduardo Escobar DO DO ms3 Samantha Aceves Wendy wm Gilmore, Jennifer, RN RN jg9
--- NOTE | 2021-11-11 08:33 | EDPHYS ---
Physician Documentation [facility] Name: Deacon Howe Jr Age: 85 yrs Sex: Male : 1935 Arrival Date: 11/11/2021 Time: 04:01 Bed 4 Private MD: ED Physician Eduardo Perea HPI: 11/11 04:58 This 85 yrs old Black Male presents to ER via Unassigned with complaints of Abdominal martin Pain. 04:58 The patient presents with abdominal pain in the upper abdomen, in the lower abdomen. martin Onset: The symptoms/episode began/occurred 1 day(s) ago. The symptoms do not radiate. Associated signs and symptoms: none. The symptoms are described as crampy, dull. Modifying factors: The symptoms are alleviated by nothing, the symptoms are aggravated by drinking, food, movement, touching the area. Severity of pain: At its worst the pain was moderate in the emergency department the pain is unchanged. The patient has not experienced similar symptoms in the past. Historical: - Allergies: 06:00 NKDA; bb - PSHx: 07:43 Cholecystectomy; hip; knee; jg9 - Immunization history:: Adult Immunizations unknown. - Social history:: Smoking status: unknown Patient uses street drugs, cocaine. - Family history:: not pertinent. ROS: 04:58 Constitutional: Negative for fever, chills, and weight loss, Eyes: Negative for injury, martin pain, redness, and discharge, ENT: Negative for injury, pain, and discharge, Neck: Negative for injury, pain, and swelling, Cardiovascular: Negative for chest pain, palpitations, and edema, Respiratory: Negative for shortness of breath, cough, wheezing, and pleuritic chest pain, Back: Negative for injury and pain, : Negative for injury, bleeding, discharge, and swelling, MS/Extremity: Negative for injury and deformity, Skin: Negative for injury, rash, and discoloration, Neuro: Negative for headache, weakness, numbness, tingling, and seizure, Psych: Negative for depression, anxiety, suicide ideation, homicidal ideation, and hallucinations, Allergy/Immunology: Negative for hives, rash, and allergies, Endocrine: Negative for neck swelling, polydipsia, polyuria, polyphagia, and marked weight changes, Hematologic/Lymphatic: Negative for swollen nodes, abnormal bleeding, and unusual bruising. 04:58 Abdomen/GI: Positive for abdominal pain, of the right upper quadrant, left upper quadrant, right lower quadrant and left lower quadrant. Exam: 04:58 Constitutional: This is a well developed, well nourished patient who is awake, alert, martin and in no acute distress. Head/Face: Normocephalic, atraumatic. Eyes: Pupils equal round and reactive to light, extra-ocular motions intact. Lids and lashes normal. Conjunctiva and sclera are non-icteric and not injected. Cornea within normal limits. Periorbital areas with no swelling, redness, or edema. ENT: Nares patent. No nasal discharge, no septal abnormalities noted. Tympanic membranes are normal and external auditory canals are clear. Oropharynx with no redness, swelling, or masses, exudates, or evidence of obstruction, uvula midline. Mucous membranes moist. Neck: Trachea midline, no thyromegaly or masses palpated, and no cervical lymphadenopathy. Supple, full range of motion without nuchal rigidity, or vertebral point tenderness. No Meningismus. Chest/axilla: Normal chest wall appearance and motion. Nontender with no deformity. No lesions are appreciated. Cardiovascular: Regular rate and rhythm with a normal S1 and S2. No gallops, murmurs, or rubs. Normal PMI, no JVD. No pulse deficits. Respiratory: Lungs have equal breath sounds bilaterally, clear to auscultation and percussion. No rales, rhonchi or wheezes noted. No increased work of breathing, no retractions or nasal flaring. Back: No spinal tenderness. No costovertebral tenderness. Full range of motion. Male : Normal genitalia with no discharge or lesions. Skin: Warm, dry with normal turgor. Normal color with no rashes, no lesions, and no evidence of cellulitis. MS/ Extremity: Pulses equal, no cyanosis. Neurovascular intact. Full, normal range of motion. Neuro: Awake and alert, GCS 15, oriented to person, place, time, and situation. Cranial nerves II-XII grossly intact. Motor strength 5/5 in all extremities. Sensory grossly intact. Cerebellar exam normal. Normal gait. Psych: Awake, alert, with orientation to person, place and time. Behavior, mood, and affect are within normal limits. 04:58 Abdomen/GI: Inspection: abdomen appears normal, Bowel sounds: normal, Palpation: mild abdominal tenderness, in all quadrants, Liver: no appreciated palpable abnormalities, Hernia: not appreciated. 05:34 ECG was reviewed by the Attending Physician. [facility] Vital Signs: 05:58 BP 210 / 105; Pulse 60; Resp 16 S; Temp 97.7(O); Pulse Ox 100% on R/A; Weight 68.18 kg bb (R); Height 6 ft. 1 in. (185.42 cm) (R); 07:00 BP 172 / 87; Pulse 68; Resp 13 S; Pulse Ox 100% ; jg9 07:30 BP 182 / 94; Pulse 60; Resp 18 S; Pulse Ox 100% on R/A; Pain 6/10; jg9 08:30 BP 164 / 84; Pulse 64; Resp 16 S; Pulse Ox 100% ; jg9 05:58 Body Mass Index 19.83 (68.18 kg, 185.42 cm) bb Procedures: 06:27 Peripheral line: by aseptic technique a peripheral line was placed in the right [facility] external jugular vein. MDM: 04:03 Patient medically screened. [facility] 05:00 Differential diagnosis: AAA, cholecystitis, Cholelithiasis, diverticulitis, gastritis, martin gastroesophageal reflux disease, GI Bleed, Mesenteric ischemia or infarction, non-specific abd pain, pancreatitis, Peptic Ulcer Disease, Pyelonephritis. Data reviewed: vital signs, nurses notes, EMS record, lab test result(s), EKG, radiologic studies, CT scan, plain films. Data interpreted: cafeteria monitor: rate is 80 beats/min, rhythm is regular, Pulse oximetry: on room air is 99 %. Test interpretation: by ED physician or midlevel provider: ECG, plain radiologic studies. Counseling: I had a detailed discussion with the patient and/or guardian regarding: the historical points, exam findings, and any diagnostic results supporting the discharge/admit diagnosis, lab results, radiology results. 07:29 Transition of care: Care assumed from Vipul Castillo MD. ms3 08:30 Special discussion: I discussed with the patient the need to follow-up with the ms3 PCP/specialist for the noted incidental finding on X-ray/CT scanning. ED course: Discussed left renal mass with patient. Discussed with patient that he will need to follow up with Dr Nevarez or other urologist for further workup. patient was able to repeat the finding and the need to follow up with Urology back to me. Patient's symptoms have improved since arrival to the emergency department. Return precautions discussed include worsening symptoms, or any other concerns. Patient understands and agrees with plan.. 11/11 04:06 Order name: Basic Metabolic Panel; Complete Time: 07:03 11/11 04:06 Order name: CBC with Diff; Complete Time: 07:03 11/11 04:06 Order name: LFT's; Complete Time: 07:03 11/11 04:06 Order name: Magnesium; Complete Time: 07:03 11/11 04:06 Order name: NT PRO-BNP; Complete Time: 07:03 11/11 04:06 Order name: PT-INR; Complete Time: 08: [facility] 11/11 04:06 Order name: Troponin HS; Complete Time: 07:03 [facility] 11/11 04:06 Order name: Lipase; Complete Time: 07:03 11/11 04:06 Order name: Acetaminophen; Complete Time: 07:03 11/11 04:06 Order name: ETOH Level; Complete Time: 07:03 11/11 04:06 Order name: Ptt, Activated; Complete Time: 08:28 11/11 04:06 Order name: Salicylate; Complete Time: 07:07 11/11 04:06 Order name: Urine Drug Screen; Complete Time: 07:03 11/11 04:06 Order name: SARS RAPID; Complete Time: 07:03 11/11 04:06 Order name: XRAY Chest (1 view) 11/11 04:06 Order name: EKG; Complete Time: 04:07 11/11 04:06 Order name: Cardiac monitoring; Complete Time: 06:57 martin 11/11 04:06 Order name: EKG - Nurse/Tech; Complete Time: 06:57 11/11 04:06 Order name: IV Saline Lock; Complete Time: 06:57 11/11 04:06 Order name: Labs collected and sent; Complete Time: 06:57 11/11 04:57 Order name: CT Abd/Pelvis - PO and IV Contrast; Complete Time: 08:28 11/11 04:57 Order name: Lactate; Complete Time: 08:28 11/11 06:09 Order name: Urine Dipstick-Ancillary; Complete Time: 06:36 EDMS 11/11 04:06 Order name: O2 Per Protocol; Complete Time: 06:57 martin 11/11 04:06 Order name: O2 Sat Monitoring; Complete Time: 06:57 [facility] 11/11 04:06 Order name: Urine Dipstick-Ancillary (obtain specimen); Complete Time: 06:56 [facility] EC:34 Rate is 63 beats/min. Rhythm is regular. QRS [place] is Normal. [place] interval is normal. QRS martin interval is normal. QT interval is normal. No Q waves. T waves are Normal. No ST changes noted. Clinical impression: NSR w/ Non-specific ST/T Changes and No evidence of ischemia. Interpreted by me. Reviewed by me. Administered Medications: 06:55 Drug: Norvasc (amlodipine) 10 mg Route: PO; kl 09:01 Follow up: Response: No adverse reaction; Blood pressure is lowered jg9 06:55 Drug: hydrALAZINE 10 mg Route: IVP; Site: right jugular; kl 09:01 Follow up: Response: No adverse reaction; Blood pressure is lowered jg9 07:00 Drug: morphine 4 mg Route: IVP; Infused Over: 4 mins; Site: right jugular; kl 09:02 Follow up: Response: No adverse reaction; Pain is decreased jg9 07:03 Drug: NS 0.9% 1000 ml Route: IV; Rate: 1 bolus; Site: left jugular; kl 08:17 Follow up: IV Status: Completed infusion; IV Intake: 1000ml jg9 07:03 Drug: Zofran (Ondansetron) 4 mg Route: IVP; Site: right jugular; kl 09:01 Follow up: Response: No adverse reaction; Pain is decreased jg9 07:04 Drug: Pepcid (famotidine) 20 mg Route: IVP; Site: right jugular; kl 08:17 Drug: NS 0.9% 500 ml Route: IV; Rate: bolus; Site: right jugular; jg9 09:00 Follow up: IV Status: Completed infusion; IV Intake: 500ml jg9 Disposition Summary: 11/11/21 08:32 Discharge Ordered Location: Home ms3 Problem: new ms3 Symptoms: have improved ms3 Condition: Stable ms3 Diagnosis - Abdominal pain, Generalized ms3 - Cocaine abuse ms3 - Essential (primary) hypertension ms3 Followup: martin - With: Private Physician - When: 2 - 3 days - Reason: Recheck today's complaints, Continuance of care, Re-evaluation by your physician Followup: martin - With: - When: 2 - 3 days - Reason: Recheck today's complaints, Re-evaluation by your physician Followup: ms3 - With: Sadiq Nevarez MD - When: 2 - 3 days - Reason: Left renal mass Discharge Instructions: - Discharge Summary Sheet martin - Abdominal Pain, Adult martin - Hypertension, Adult martin - Abdominal Pain, Adult, Mhij-ea-Oior martin - Hypertension, Adult, Ovny-yi-Rupi martin - Cocaine Use Disorder martin - How to Take Your Blood Pressure, Nvrp-az-Irje martin - Aspirin and Your Heart martin - Managing Your Hypertension martin - Renal Mass ms3 Forms: - Medication Reconciliation Form ms3 - Thank You Letter ms3 - Antibiotic Education ms3 - Prescription Opioid Use ms3 Prescriptions: - Norvasc 10 mg Oral Tablet - take 1 tablet by ORAL route once daily; 30 tablet; Refills: 0, Product martin Selection Permitted - Pepcid 20 mg Oral Tablet - take 1 tablet by ORAL route once daily for 21 days; 42 tablet; Refills: 0, martin Product Selection Permitted - dicyclomine 20 mg Oral Tablet - take 1 tablet by ORAL route 4 times per day; 28 tablet; Refills: 0, Product martin Selection Permitted - Zofran 4 mg Oral Tablet - take 1 tablet by ORAL route every 12 hours As needed; 20 tablet; Refills: 0, martin Product Selection Permitted Signatures: Dispatcher [employer] Giovana Koroma RN RN kl Anderson, Corey, MD MD cha Ballard, Brenda, RN RN bb Sims, Marcus, DO DO ms3 Dee Dee Pan RN RN jg9 Corrections: (The following items were deleted from the chart) 07:04 04:06 Suicide Screening ([place]) ordered. martin jb4
[2021-11-11 09:21] VITALS: TEMP 97.7; O2SAT 100
[2021-11-11 09:31] VITALS: BP 164/84
--- NOTE | 2021-11-11 10:16 | RAD REPORT ---
EXAM DESCRIPTION: RAD - Chest Single View - 11/11/2021 4:28 am CLINICAL HISTORY: The patient is 85 years old and is Male; Abdominal distention TECHNIQUE: Frontal view of the chest. COMPARISON: No pertinent prior images available for comparison at time of dictation. FINDINGS: LUNGS: Allowing for patient rotation, there is masslike scarring in the right lung base, with suspected tethering of the adjacent pleura/chest wall. The remainder of the bilateral lung fiel ds appear well-aerated. PLEURAL SPACE: See above. No pleural effusion or pneumothorax. HEART: Cardiomediastinal silhouette does not appear enlarged. MEDIASTINUM: See above. BONES/JOINTS: No acute osseous abnormality. 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 Otherwise, no acute findings in the chest. Electronically signed by: Bacilio Munoz MD 11/11/2021 4:45 AM CDT Due to temporary technical issues with the PACS/Fluency reporting system, reports are being signed by the in house radiologists without review as a courtesy to insure prompt reporting. The interpreting radiologist is fully responsible for the content of the report.
== END 2021-11-11 09:01 | disposition home or self-care (01) ==
LOC: ER 03:54
DX: R10.84 Generalized abdominal pain (principal); F14.10 Cocaine abuse, uncomplicated; I10 Essential (primary) hypertension; Z20.822 Contact with and (suspected) exposure to COVID-19
CPT/HCPCS: 93005; 85025; 80048; 36415; 80320; 83735; 80329 ×2; 85610; 80076; 83605; 85730; 81003; 84484; 83690; 83880; 80307; 74177; 71045; 87811; Q9967; J0360; J7040; J7030; J2405

== ENCOUNTER 2021-11-25 10:06 | Emergency (ER) | payer OTHER ==
--- OUTSIDE RECORDS SUMMARY | 2021-11-25 10:09 | XMS REPORT | Continuity of Care Document ---
:1935 Author Organization [facility] t Address [address] [place] [address] Support Name Relationship Address Phone MD MARGARITO Emergency Provider [address] [phone] [place] [address] PHYSICIAN, NO Primary Care Physician Unavailable Unavailab BRAD Kapoor Family Member [address] [place] [address] LEIDY PASTRANA Primary Care Physician [address] [phone] [place] [address] MD VIVEK PENN Emergency Provider Unavailable Unavailable MD MARLEY GUERRA A Emergency Provider [facility] [address] BRAD RIVAS Family Member [address] [place] [address] MD [facility] Admitting Provider [address] [phone] [place] [address] MD JAVAN NASCIMENTO JR Admitting Provider [address] [phone] [place] [address] MD RILEY KLAWOCK Emergency Provider [email or web address] [address] MD JENNIFER Emergency Provider [address] [place] [address] MD BEVERLEY SEGAL Emergency Provider [address] [place] [address] MD CLAUDIA HERRING Emergency Provider [address] [phone] [place] [address] MD CINDY SCHWARZ Emergency Provider [address] [phone] [place] [address] MD SENTHIL TERRY Emergency Provider [address] [place] [address] MD JIGNESH DAWSON Emergency Provider [address] [place] [address] Care Team Providers Name Role Phone Pillo_Lee Attending Clinician Unavailable Pillo_Lee Admitting Clinician Unavailable Payers Payer Name Policy Type Policy Number Effective Date Expiration Date Gaviota petit [place]ICARE [place]: [id number] 2002 ATEME 00:00:00 [employer] [id number] 2019 [facility] (MEDICAID 00:00:00 HMO) Problems This patient has no known problems. Allergies, Adverse Reactions, Alerts This patient has no known allergies or adverse reactions. Medications This patient has no known medications. Procedures This patient has no known procedures. Encounters Start End Encounter Admission Attending Care Care Encounter Source Date/Time Date/Time Type Type Clinicians Facility Department ID 2020-12-04 2020-12-04 Outpatient Pillo[facility]Lee [id number] [place] 02:27:00 02:27:00 [facility] 2020-12-03 2020-12-03 Outpatient Pillo[facility]J [facility] [id number] [place] 02:48:00 02:48:00 [facility] Results This patient has no known results.
[2021-11-25 13:30] LABS: Urine Blood Trace-intact (Negative); Urine Glucose Negative (Negative); Urine Protein Negative (Negative); Urine pH 6.5 (5.0-7.0)
[2021-11-25 13:39] LABS: Absolute Lymphocytes (CBC) 1.2 K/uL (0.7-4.9); Hematocrit 44.4 % (39.6-49.0); Lymphocytes % 23.5 % (15.3-44.8); MCV 77.9 fL (80-100); MPV 7.1 fL (7.6-11.3); RBC Red Blood Cell Count 5.69 M/uL (4.33-5.43)
[2021-11-25 13:43] LABS: Protime INR 1.04
[2021-11-25 13:59] LABS: Barbiturates NEGATIVE (NEGATIVE); Benzodiazepines NEGATIVE (NEGATIVE); Cocaine POSITIVE (NEGATIVE); METHAMPHETAM NEGATIVE (NEGATIVE); Methadone NEGATIVE (NEGATIVE); Opiates NEGATIVE (NEGATIVE); Phencyclidine NEGATIVE (NEGATIVE); THC Cannibis NEGATIVE (NEGATIVE)
[2021-11-25] MEDS ORDERED: NA CHLORIDE 0.9% 500 ML ONE (14:04)
[2021-11-25 14:26] LABS: ALT/SGPT 36 U/L (12-78); AST/SGOT 30 U/L (15-37); Albumin 3.3 g/dL (3.4-5.0); Alkaline Phosphatase 68 U/L (45-117); BUN Blood Urea Nitrogen 14 mg/dL (7-18); Bicarbonate 26 mmol/L (21-32); Bilirubin Direct 0.2 mg/dL (0-0.2); Bilirubin Total 0.8 mg/dL (0.2-1.0); Glomerular Filtration Rate 68 ml/min (=/>90); Glucose Level 72 mg/dL (74-106); Potassium 4.1 mmol/L (3.5-5.1); Protein, Total 7.3 g/dL (6.4-8.2); Sodium Level 136 mmol/L (136-145); Troponin High Sensitivity 9.8 pg/mL (<58.9)
[2021-11-25] MEDS ORDERED: MORPHINE 4 MG/ML SYR ONE (15:18)
--- NOTE | 2021-11-25 15:51 | ER ---
Nurse's Notes [facility] Name: Deacon Howe Jr Age: 85 yrs Sex: Male : 1935 Arrival Date: 11/25/2021 Time: 10:07 Bed 17 Private MD: Diagnosis: Cocaine abuse;Chronic Presentation: 11/25 11:48 Chief complaint: Patient states: Pain all over. Coronavirus screen: At this time, the [facility] client does not indicate any symptoms associated with coronavirus-19. Ebola Screen: No symptoms or risks identified at this time. Initial Sepsis Screen: Does the patient meet any 2 criteria? No. Patient's initial sepsis screen is negative. Does the patient have a suspected source of infection? No. Patient's initial sepsis screen is negative. Risk Assessment: Do you want to hurt yourself or someone else? Patient reports no desire to harm self or others. Onset of symptoms is unknown. 11:48 Method Of Arrival: EMS: [facility] 11:48 Acuity: ALIN 3 7 Triage Assessment: 11:49 General: Appears in no apparent distress. uncomfortable, Behavior is calm, cooperative. jl7 Pain: Complains of pain in all over Pain currently is 10 out of 10 on a pain scale. 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 - Social history:: Smoking status: Patient reports the use of cigarette tobacco products, smokes one-half pack cigarettes per day. Screenin:21 Abuse screen: Denies threats or abuse. Denies injuries from another. Nutritional mb8 screening: No deficits noted. Tuberculosis screening: No symptoms or risk factors identified. Fall Risk Fall in past 12 months (25 points). Secondary diagnosis (15 points) IV access (20 points). Ambulatory Aid- None/Bed Rest/Nurse Assist (0 pts). Gait- Weak (10 pts.). Mental Status- Oriented to own ability (0 pts). Total Pedroza Fall Scale indicates Low Risk Score (25-44 pts). Fall prevention measures have been instituted. Side Rails Up X 2 As available Patient and Family Educated on Fall Prevention Program and strategies. Assessment: 13:20 Pain: Complains of pain in abdomen Pain currently is 10 out of 10 on a pain scale. mb8 Quality of pain is described as aching. GI: Abd is soft Abd is non tender Reports lower abdominal pain, upper abdominal pain, Patient currently denies bloody stool, diarrhea, rectal bleeding, vomiting. 15:30 Reassessment: Patient and/or family updated on plan of care and expected duration. Pain mb8 level reassessed. Patient is alert, oriented x 3, equal unlabored respirations, skin warm/dry/pink. Patient states feeling better. Vital Signs: 11:48 BP 144 / 82; Pulse 70; Resp 19; Temp 98; Pulse Ox 100% ; Weight 74.84 kg; Height 6 ft. jl7 2 in. (187.96 cm); Pain 9/10; 15:30 Pulse 88; Resp 18; Pulse Ox 96% ; Pain 3/10; mb8 11:48 Body Mass Index 21.18 (74.84 kg, 187.96 cm) jl7 ED Course: 10:07 Patient arrived in ED. rg4 11:49 Triage completed. jl7 13:01 Jagdish Reed PA is PHCP. brianna 13:01 Vipul Castillo MD is Attending Physician. [facility] 13:18 Inserted saline lock: 20 gauge in right forearm, using aseptic technique. Blood mb8 collected. 13:22 Santi Donaldson, RN is Primary Nurse. mb8 13:22 Patient has correct armband on for positive identification. Placed in gown. Bed in low mb8 position. Call light in reach. Side rails up X2. Client placed on continuous cardiac and pulse oximetry monitoring. NIBP monitoring applied. 13:22 Arm band placed on. mb8 13:22 No provider procedures requiring assistance completed. mb8 13:30 Urine Drug Screen Sent. mb7 14:21 EKG done, by ED staff, reviewed by Jagdish SAENZ. mb7 15:13 IV discontinued, intact, bleeding controlled, No redness/swelling at site. Pressure mb7 dressing applied. Administered Medications: 14:00 Drug: NS 0.9% 500 ml Route: IV; Rate: bolus; Site: right antecubital; mb8 15:15 Follow up: IV Status: IV infiltrated mb8 15:12 Not Given (IV infiltrated, LETTY okay with IM routee): morphine 4 mg IVP once over 4 mins mb8 15:12 Drug: morphine 4 mg Route: IM; Site: left deltoid; mb8 15:27 Follow up: Response: No adverse reaction; Pain is decreased mb8 Medication: 13:21 VIS not applicable for this client. mb8 Outcome: 15:50 Discharge ordered by . patricia 15:57 Discharged to home ambulatory. mb8 15:57 Condition: stable 15:57 Discharge instructions given to patient, Instructed on discharge instructions, follow up and referral plans. quit using cocaine Demonstrated understanding of instructions, follow-up care. 15:58 Patient left the ED. mb8 Signatures: Jagdish Reed PA PA jmm Garcia, Rubi rg4 Skye Gore RN RN jl7 Lina Argueta mb7 Santi Donaldson RN RN mb8
--- NOTE | 2021-11-25 15:52 | EDPHYS ---
Physician Documentation [facility] Name: Deacon Howe Jr Age: 85 yrs Sex: Male : 1935 Arrival Date: 11/25/2021 Time: 10:07 Bed 17 Private MD: SEBASTIÁN Physician Vipul Castillo HPI: 11/25 13:02 This 85 yrs old Black Male presents to ER via EMS with complaints of Pain All Over. [facility] 13:02 The patient presents with abdominal pain. Onset: The symptoms/episode began/occurred at [facility] an unknown time. The symptoms do not radiate. Associated signs and symptoms: Pertinent negatives: nausea and vomiting, diarrhea. The symptoms are described as achy. Modifying factors: The symptoms are alleviated by nothing, the symptoms are aggravated by nothing. The patient has experienced similar episodes in the past, chronically. 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 - Social history:: Smoking status: Patient reports the use of cigarette tobacco products, smokes one-half pack cigarettes per day. ROS: 13:02 Constitutional: Negative for fever, chills, and weight loss, Cardiovascular: Negative [facility] for chest pain, palpitations, and edema, Respiratory: Negative for shortness of breath, cough, wheezing, and pleuritic chest pain. 13:02 Abdomen/GI: Positive for abdominal pain. 13:02 All other systems are negative. Exam: 13:02 Constitutional: This is a well developed, well nourished patient who is awake, alert, jmm and in no acute distress. Head/Face: atraumatic. Eyes: EOMI, no conjunctival erythema appreciated ENT: Moist Mucus Membranes Neck: Trachea midline, Supple Chest/axilla: Normal chest wall appearance and motion. Cardiovascular: Regular rate and rhythm. No edema appreciated Respiratory: Normal respirations, no respiratory distress appreciated Abdomen/GI: Non distended Back: Normal ROM Skin: General appearance color normal MS/ Extremity: Moves all extremities, no obvious deformities appreciated, no edema noted to the lower extremities Neuro: Awake and alert Psych: Behavior is normal, Mood is normal, Patient is cooperative and pleasant Vital Signs: 11:48 BP 144 / 82; Pulse 70; Resp 19; Temp 98; Pulse Ox 100% ; Weight 74.84 kg; Height 6 ft. jl7 2 in. (187.96 cm); Pain 9/10; 15:30 Pulse 88; Resp 18; Pulse Ox 96% ; Pain 3/10; mb8 11:48 Body Mass Index 21.18 (74.84 kg, 187.96 cm) jl7 MDM: 13:22 Patient medically screened. martin 15:48 Data reviewed: vital signs, nurses notes. Counseling: I had a detailed discussion with patricia the patient and/or guardian regarding: the historical points, exam findings, and any diagnostic results supporting the discharge/admit diagnosis, the need for outpatient follow up, to return to the emergency department if symptoms worsen or persist or if there are any questions or concerns that arise at home. 11/25 13:02 Order name: Acetaminophen; Complete Time: 14:35 [facility] 11/25 13:02 Order name: Basic Metabolic Panel; Complete Time: 14:35 [facility] 11/25 13:02 Order name: CBC with Diff; Complete Time: 13:51 [facility] 11/25 13:02 Order name: ETOH Level; Complete Time: 13:55 [facility] 11/25 13:02 Order name: Hepatic Function; Complete Time: 14:35 [facility] 11/25 13:02 Order name: PT-INR; Complete Time: 13:51 [facility] 11/25 13:02 Order name: Ptt, Activated; Complete Time: 13:51 [facility] 11/25 13:02 Order name: Salicylate; Complete Time: 14:35 [facility] 11/25 13:02 Order name: Urine Drug Screen; Complete Time: 14:08 [facility] 11/25 13:02 Order name: Troponin High Sensitivity; Complete Time: 14:35 [facility] 11/25 13:30 Order name: Urine Dipstick-Ancillary; Complete Time: 13:32 [facility] 11/25 13:02 Order name: EKG; Complete Time: 13:03 [facility] 11/25 13:02 Order name: EKG - Nurse/Tech; Complete Time: 14:20 [facility] 11/25 13:02 Order name: IV Saline Lock; Complete Time: 13:17 [facility] 11/25 13:02 Order name: Labs collected and sent; Complete Time: 13:17 [facility] 11/25 13:02 Order name: Suicide Screening ([place]); Complete Time: 13:17 [facility] 11/25 13:02 Order name: Urine Dipstick-Ancillary (obtain specimen); Complete Time: 13:30 [facility] Administered Medications: 14:00 Drug: NS 0.9% 500 ml Route: IV; Rate: bolus; Site: right antecubital; mb8 15:15 Follow up: IV Status: IV infiltrated mb8 15:12 Not Given (IV infiltrated, LETTY okay with IM routee): morphine 4 mg IVP once over 4 mins mb8 15:12 Drug: morphine 4 mg Route: IM; Site: left deltoid; mb8 15:27 Follow up: Response: No adverse reaction; Pain is decreased mb8 Disposition Summary: 11/25/21 15:50 Discharge Ordered Location: Home [facility] Condition: Stable jm Diagnosis - Cocaine abuse jm - Chronic jmm Followup: [facility] - With: Private Physician - When: 2 - 3 days - Reason: Recheck today's complaints, Continuance of care, Re-evaluation by your physician Discharge Instructions: - Discharge Summary Sheet [facility] - Chronic Pain, Adult jmm - Cocaine Use Disorder [facility] Forms: - Medication Reconciliation Form [facility] - Thank You Letter [facility] - Antibiotic Education [facility] - Prescription Opioid Use [facility] Signatures: Dispatcher [employer] Vipul Solomon MD MD cha Mickail, Joel, PA PA jmm Leal, Jahala RN RN jl7 Santi Donaldson RN RN mb8
[2021-11-25 23:14] VITALS: BP 144/82; TEMP 98
[2021-11-25 23:27] VITALS: O2SAT 96
--- NOTE | 2021-11-26 17:11 | EKG ---
Test Date: 2021-11-25 Test Time: 14:20:54 [employer]: MB MEASUREMENT RESULTS: Intervals: Rate: 68 SD: 212 QRSD: 84 QT: 368 QTc: 391 Lamar: P: 77 SD: 212 QRS: 83 T: 75 INTERPRETIVE STATEMENTS: Sinus rhythm with 1st degree AV block Otherwise normal ECG Compared to ECG 11/11/2021 05:09:47 First degree AV block now present Electronically Signed On 11-26-21 17:06:55 CDT by Rocco Menjivar
== END 2021-11-25 15:58 | disposition home or self-care (01) ==
LOC: ER 10:06
DX: F14.10 Cocaine abuse, uncomplicated (principal); R10.9 Unspecified abdominal pain; I10 Essential (primary) hypertension; F17.210 Nicotine dependence, cigarettes, uncomplicated
CPT/HCPCS: 93005; 85025; 80048; 36415; 80320; 80329 ×2; 85610; 80076; 85730; 81003; 84484; 80307; 96360; 96372; 99284; J7040

== ENCOUNTER 2021-12-31 17:38 | Observation (INO) | payer OTHER ==
--- OUTSIDE RECORDS SUMMARY | 2021-12-31 17:44 | XMS REPORT | Continuity of Care Document ---
:[address] [facility] t Address [address] [place] [address] Support Name Relationship Address Phone MD MARGARITO Emergency Provider [address] [address] PHYSICIAN, NO Primary Care Physician Unavailable Unavailab deven LASTBRAD BISHOP Family Member [address] [place] [address] LEIDY PASTRANA Primary Care Physician [address] [address] MD ISAMAR VIVEK Emergency Provider Unavailable Unavailable MD MARLEY GUERRA A Emergency Provider [facility] [place] [address] BRAD RIVAS Family Member [address] [place] [address] MD [facility] Admitting Provider [address] [phone] [place] [address] MD JAVAN NASCIMENTO JR Admitting Provider [address] [phone] [place] [address] MD RILEY GARNER Emergency Provider [email or web address] [address] MD JENNIFER Emergency Provider [address] [phone] [place] [address] MD BEVERLEY SEGAL Emergency Provider [address] [facility] [place] [address] MD CLAUDIA HERRING Emergency Provider [address] [place] [address] MD CINDY SCHWARZ Emergency Provider [address] [place] [address] MD SENTHIL TERRY Emergency Provider [address] [place] [address] MD JIGNESH DAWSON Emergency Provider [address] [place] [address] Care Team Providers Name Role Phone Daphney PAUL, [facility] Primary Care Physician [phone] [place] Attending Clinician Unavailable Taqueria Correa MD Attending Clinician TAQUERIA CORREA Attending Clinician Unavailable Josefa Soria DO Attending Clinician JOSEFA SORIA Attending Clinician Unavailable [place] Admitting Clinician Unavailable JOSEFA SORIA Admitting Clinician Unavailable Payers Payer Name Policy Type Policy Number Effective Date Expiration Date Gaviota petit [place]: [id number] 2002 [employer] 00:00:00 [employer] [id number] 2019 [facility] (MEDICAID 00:00:00 HMO) Problems Condition Condition Condition Status Onset Resolution Last Treating Co mments Source Name Details Category Date Date Treatment Clinician Date Head Head Disease Active 2013-03 Univers injury, injury, 0-15 ity of acute, acute, 00:00: [place] initial initial 00 Medical encounter encounter Bran ch Skull Skull Disease Active Overview: Univer s fracture fracture 8 Formattin ity of 00:00: g of this [...] Ulna Ulna Disease Active Univers fracture, fracture, 8-19 ity of left, left, 00:00: [place] closed, closed, 00 Medical initial initial Branch encounter encounter Traumatic Traumatic Disease Active Uni vers brain brain 8-19 ity of injury injury 00:00: [place] 00 Medical Branch Allergies, Adverse Reactions, Alerts Allergy Allergy Status Severity Reaction(s) Onset Inactive Treating Comm ents Source Name Type Date Date Clinician NO KNOWN Drug Active Univers ALLERGIE Class ity of S [facility] [place] [facility] Social History Social Habit Start Date Stop Date Quantity Comments Source History of tobacco 1954-10-13 Cigar Smoker Univ ersity of use 00:00:00 [facility] [place] [facility] Exposure to Unable to assess Univers ity of SARS-CoV-2 (event) [facility] [place] [facility] Cigarettes smoked 2020-08-31 2020-08-31 Univers ity of current (pack per 00:00:00 00:00:00 [facility] ) - Reported Branch Cigarette 2020-08-31 2020-08-31 University of pack-years 00:00:00 00:00:00 [facility] [place] [facility] Alcohol intake 2020-08-31 2020-08-31 Current drinker Unive rsity of 00:00:00 00:00:00 of alcohol [facility] (finding) [place] Tobacco use and 2020-08-31 2020-08-31 Never used Universit y of exposure 00:00:00 00:00:00 [facility] [place] [facility] Sex [birth year] Universit y of 00:00:00 00:00:00 [facility] [place] [facility] Smoking Status Start Date Stop Date Source Current every day smoker 2020-08-31 00:00:00 Uni versity of [facility] [place] [facility] Medications Ordered Filled Start Stop Current Ordering Indication Dosage Frequency Signature Comments Components Source Medication Medication Date Date Medication? Clinician (SIG) Name Name DICLOFENAC 2021-[address] 0-03 75 MG TBEC 00:00: 00 DICLOFENAC 2021-[address] 8-23 75 MG TBEC 00:00: 00 DICLOFENAC 2021-[address] 8-23 75 MG TBEC 00:00: 00 DICLOFENAC 2021-[address] 8-23 75 MG TBEC 00:00: 00 TAKE 1 2021-0 No 300 CAPSULE BY 7-20 MOUTH TWICE 00:00: A DAY FOR 00 PNEUMONIA TAKE 1 No 300 CAPSULE BY 7-20 MOUTH TWICE 00:00: A DAY FOR 00 PNEUMONIA TAKE No 300 CAPSULE BY 7-20 MOUTH TWICE 00:00: A DAY FOR 00 PNEUMONIA Dose 2021- No 20 Unknown 7-18 00:00: 00 &lt 2022-0 No 7-18 00:00: 00 Dose 2022-0 No 20 Unknown 7-18 00:00: 00 &lt 2022-0 No 7-18 00:00: 00 Dose 2022-0 No 20 Unknown 7-18 00:00: 00 &lt 2022-0 No 7-18 00:00: 00 diclofenac 2-0 No 2% 3 % topical [...] 00 GASTRITIS Dose 2-0 No 300 Unknown 09-24 00:00: 00 TAKE 1 2-0 No 600 [...] MOUTH DAILY 00:00: FOR 00 GASTRITIS Dose 2022-0 No 300 Unknown 7-13 00:00: 00 TAKE 1 2-0 No 600 TABLET BY 7-13 MOUTH EVERY 00:00: 6 HOURS 00 NEEDED FOR PAIN diclofenac 2022-0 No 2% 3 % topical 7-13 gel 00:00: 00 lidocaine 5 2021-0 No 1% % topical 7-13 patch 00:00: 00 diclofenac 2021-0 No 1mg sodium 75 7-13 mg 00:00: tablet,era 00 yed release Vitamin D3 2021-0 No 1(1,000 25 mcg 7-13 unit) (1,000 00:00: unit) 00 capsule &lt 2021-0 No 300 09-24 00:00: 00 diclofenac 2021-0 No 2% 3 % topical 7-13 gel 00:00: 00 lidocaine 5 2021-0 No 1% % topical 7-13 patch 00:00: 00 Dose 2021-0 No Unknown 09-24 00:00: 00 Vitamin D3 2021-0 No 1(1,000 25 mcg 7-13 unit) (1,000 00:00: unit) 00 capsule INHALE 2 2021-0 No PUFFS BY 7-13 MOUTH EVERY 00:00: 4 TO 6 00 HOURS FOR WHEEZING / SHORTNESS OF BREATH &lt 2021-0 No 300 13 00:00: 00 INHALE 2 2021-0 No PUFFS BY 7-13 MOUTH EVERY 00:00: 4 TO 6 00 HOURS FOR WHEEZING / SHORTNESS OF BREATH TAKE 1 2021-0 No 20 CAPSULE BY 7-13 MOUTH DAILY 00:00: FOR 00 GASTRITIS Dose 2021-0 No 300 Unknown 09-24 00:00: 00 TAKE 1 2021-0 No 600 TABLET BY 7-13 MOUTH EVERY 00:00: 6 HOURS 00 NEEDED FOR PAIN TAKE 1 2021-0 No 20 CAPSULE BY 7-13 MOUTH DAILY 00:00: FOR 00 GASTRITIS Dose 2-0 No 300 Unknown 09-24 00:00: 00 TAKE [...] (1,000 00:00: unit) 00 capsule Vitamin D3 0 No 1(1,000 25 mcg 7-12 unit) (1,000 00:00: unit) 00 capsule lidocaine 5 2020-0 No 1% % topical 7-08 patch 00:00: 00 ibuprofen 1-0 No 1mg 600 mg 7-08 tablet 00:00: 00 lidocaine 5 1-0 No 1% % topical 7-08 patch 00:00: 00 ibuprofen 2021-0 No 1mg 600 mg 7-08 tablet 00:00: 00 lidocaine 5 1-0 No 1% % topical 7-08 patch 00:00: 00 ibuprofen 2021-0 No 1mg 600 mg 7-08 tablet 00:00: [...] 800 mg 6-22 tablet 00:00: 00 ketorolac 2020-0 2020- No 15mg 15 mg, Unive rs (TORADOL) 09-0120 Slow IV ity of injection 06:45: 06:00 Push, [place] 15 mg 00 :00 ONCE, 1 Medical dose, Sun Branch 09/01/20 at 0145, Routine
human resources team member approving Restricted medication : TAQUERIA CORREA iopamidol 2020- No [id number] 100mL 100 mL, Univers (ISOVUE 09-01-20 Intravenou ity o f 370-500 mL) 05:15: 03:57 s, ONCE, 1 [place] injection 00 :00 dose, Sun Medic al 100 mL 09/01/20 at Branch 0015, Routine NaCl 0.9% 2020-0 2020- No 500mL at 999 Univ ers (NS) bolus 09-01 06-20 mL/hr, 500 it y of infusion 04:00: 05:00 mL, IV [place] 500 mL 00 :00 Infusion, Medical ONCE, 1 Branch dose, 08/31/20 at 2300, STAT acetaminoph 2020-0 Yes 4647 1{tbl} Take 1 Un cristo [...] 800 mg 6-02 tablet 00:00: 00 sulfamethox 2020-0 No 1mg azole 800 6-02 [...] 800 mg 6-02 tablet 00:00: 00 Augmentin 1-0 No 1mg 875 mg-125 5-20 mg tablet 00:00: 00 Augmentin 2021-0 No 1mg 875 mg-125 5-20 mg tablet 00:00: 00 Augmentin 2021-0 No 1mg 875 mg-125 5-20 mg tablet 00:00: 00 Augmentin 2021-0 No 1mg 875 mg-125 5-20 mg tablet 00:00: 00 ibuprofen 1-0 No 1mg 800 mg 5-13 tablet 00:00: [...] 3-18 topical gel 00:00: 00 Compound W 1-0 No 1% 17 % 3-18 topical gel 00:00: 00 lidocaine 5 1-0 No 1% % topical 3-04 patch 00:00: 00 Vitamin D3 1-0 No 1(1,000 25 mcg 3-04 unit) (1,000 00:00: unit) 00 capsule lidocaine 5 1-0 No 1% % topical 3-04 patch 00:00: 00 Vitamin D3 2021-0 No 1(1,000 25 mcg 3-04 unit) (1,000 00:00: unit) 00 capsule lidocaine 5 1-0 No 1% % topical 3-04 patch 00:00: 00 Vitamin D3 2021-0 No 1(1,000 25 mcg 3-04 unit) (1,000 00:00: unit) 00 capsule lidocaine 5 1-0 No 1% % topical 3-04 patch 00:00: 00 Vitamin D3 2021-0 No 1(1,000 25 mcg 3-04 unit) (1,000 00:00: unit) 00 capsule Vitamin D3 1-0 No 1(1,000 25 mcg 3-01 unit) (1,000 00:00: unit) 00 capsule Vitamin D3 1-0 No 1(1,000 25 mcg 3-01 unit) (1,000 00:00: unit) 00 capsule Vitamin D3 1-0 No 1(1,000 25 mcg 3-01 unit) (1,000 00:00: unit) 00 capsule Vitamin D3 1-0 No 1(1,000 25 mcg 3-01 unit) (1,000 00:00: unit) 00 capsule cephalexin 1-0 No 1mg 500 mg 2-26 tablet 00:00: 00 cephalexin 2021-0 No 1mg 500 mg 2-26 tablet 00:00: 00 cephalexin 2021-0 No 1mg 500 mg 2-26 tablet 00:00: 00 cephalexin 2021-0 No 1mg 500 mg 2-26 tablet 00:00: 00 ibuprofen 2021-0 No 1mg 400 mg 1-14 tablet 00:00: 00 ibuprofen 2021-0 No 1mg 400 mg 1-14 tablet 00:00: 00 ibuprofen 2021-0 No 1mg 400 mg 1-14 tablet 00:00: 00 ibuprofen 2021-0 No 1mg 400 mg 1-14 tablet 00:00: 00 meloxicam 2019-1 No 1mg 7.5 mg 2-05 tablet 00:00: 00 gabapentin 2020-1 No 1mg 100 mg 2-05 capsule 00:00: 00 meloxicam 2019-1 No 1mg 7.5 mg 2-05 tablet 00:00: 00 gabapentin 2020-1 No 1mg 100 mg 2-05 capsule 00:00: 00 meloxicam 2019-1 No 1mg 7.5 mg 2-05 tablet 00:00: 00 gabapentin 2020-1 No 1mg 100 mg 2-05 capsule 00:00: 00 meloxicam 2019-1 No 1mg 7.5 mg 2-05 tablet 00:00: 00 gabapentin 2020-1 No 1mg 100 mg 2-05 capsule 00:00: 00 Pepcid 20 2019-1 No 1mg mg tablet -28 00:00: 00 Pepcid 20 2019-1 No 1mg mg tablet -28 00:00: 00 Pepcid 20 2019-1 No 1mg mg tablet 28 00:00: 00 Pepcid 20 2019-1 No 1mg mg tablet -28 00:00: 00 mupirocin 2 2019- No 1% % topical 1-18 ointment 00:00: 00 bisacodyl 5 2019- No 1mg mg 1-18 tablet,era 00:00: yed release 00 sulfamethox 2019-03 No 1mg azole 800 1-18 mg-trimetho 00:00: prim 160 mg 00 tablet mupirocin 2 2019- No 1% % topical 1-18 ointment 00:00: 00 bisacodyl 5 2019- No 1mg mg 1-18 tablet,era 00:00: yed release 00 sulfamethox 2019- No 1mg azole 800 1-18 mg-trimetho 00:00: prim 160 mg 00 tablet mupirocin 2 2019- No 1% % topical 1-18 ointment 00:00: 00 bisacodyl 5 2019-1 No 1mg mg 1-18 tablet,era 00:00: yed release 00 sulfamethox 2019- No 1mg azole 800 1-18 mg-trimetho 00:00: [...] tramadol 50 2020-0 No 1mg mg tablet 7-22 00:00: 00 gabapentin 2020-0 No 1mg 100 mg 7-22 capsule 00:00: 00 lidocaine 5 2020-0 No 1% % topical 7-22 patch 00:00: 00 meloxicam 2020-0 No 1mg 7.5 mg 7-22 tablet 00:00: 00 diclofenac 2020-0 No 1mg sodium 75 7-22 mg 00:00: tablet,rea 00 yed release tramadol 50 2020-0 No 1mg mg tablet 22 00:00: 00 gabapentin 2020-0 No 1mg 100 mg 7-22 capsule 00:00: 00 lidocaine 5 2020-0 No 1% % topical 7-22 patch 00:00: 00 meloxicam 2020-0 No 1mg 7.5 mg 7-22 tablet 00:00: 00 diclofenac 2020-0 No 1mg sodium 75 7-22 mg 00:00: tablet,era 00 yed release tramadol 50 2020-0 No 1mg mg tablet 22 00:00: 00 gabapentin 2020-0 No 1mg 100 mg 7-22 capsule 00:00: 00 lidocaine 5 2020-0 No 1% % topical 7-22 patch 00:00: 00 meloxicam 2020-0 No 1mg 7.5 mg 7-22 tablet 00:00: 00 diclofenac 2020-0 No 1mg sodium 75 7-22 mg 00:00: tablet,era 00 yed release tramadol 50 2020-0 No 1mg mg tablet 22 00:00: 00 Lidoderm 5 2020-0 No 1% % topical 7-18 patch 00:00: 00 naproxen 2020-0 No 1mg 500 mg 7-18 tablet 00:00: 00 Lidoderm 5 2020-0 No 1% % topical 7-18 patch 00:00: 00 naproxen 2020-0 No 1mg 500 mg 7-18 tablet 00:00: 00 Lidoderm 5 2020-0 No 1% % topical 7-18 patch 00:00: 00 Lidoderm 5 2020-0 No 1% % topical 7-18 patch 00:00: 00 naproxen 2020-0 No 1mg 500 mg 7-18 tablet 00:00: 00 naproxen 2020-0 No 1mg 500 mg 7-18 tablet 00:00: 00 ondansetron 2020-0 2020- No 4mg 4 mg, Slow Univers (ZOFRAN 1-30 01-30 IV Push, ity of (PF)) 17:15: 16:27 ONCE, 1 [place] injection 4 00 :00 dose, Roxana [facility] ical mg 04/13/19 at Branch 1115, RYLEY NaCl 0.9% 0 2020- No 1000mL at 999 Uni vers (NS) bolus 1-30 01-30 mL/hr, ity of infusion 16:15: 18:40 1,000 mL, Issac as 1,000 mL 00 :00 IV Medical Infusion, Branch ONCE, 1 dose, Roxana 04/13/19 at 1015, RYLEY ondansetron 2019-0 Yes [id number] 4mg Take 1 Univers (ZOFRAN 1-30 tablet by ity of ODT) 4 mg 00:00: mouth [place] disintegrat 00 every 8 Medic al ing tablet (eight) Branch hours as needed for Nausea and Vomiting (N/V). ondansetron 2019-0 Yes [id number] 4mg Take 1 Univers (ZOFRAN 1-30 tablet [...] ity o f (TYLENOL 00:00: every 4 [place] #3) 300-30 00 (four) Medical mg tablet [...] ity o f (TYLENOL 00:00: every 4 [place] #3) 300-30 00 (four) Medical mg tablet [...] % times Branch ophthalmic daily. drops cephALEXin 0 Yes 500mg Take 1 Cap Univers (KEFLEX) [...] unrelieved by non-narcot ic analgesics . ibuprofen 2014-0 Yes 600mg Take 1 Tab U nivers (MOTRIN) 8-25 by mouth ity of 600 mg 00:00: every 6 [place] tablet 00 (six) Medical hours as Branch needed for Pain (scale 1-3) or Pain (scale 4-6). Immunizations Ordered Filled Immunization Date Status Comments [facility] e Immunization Name Name Tdap 2020-08-01 Completed 00:00:00 Tdap 2020-08-01 Completed 00:00:00 Tdap 2020-08-01 Completed 00:00:00 Tdap 2020-08-01 Completed 00:00:00 SARS-COV-2 COVID-19 2020-07-06 Completed Unive rsity of PFIZER VACCINE 00:00:00 [facility] Branch Influenza, 2020-01-29 Completed seasonal, inj 00:00:00 [...] 06:00:00 164 mm[Hg] Univer sity of pressure [facility] [place] [facility] Diastolic blood 2020-09-01 06:00:00 89 mm[Hg] Unive rsity of pressure [facility] [place] [facility] Heart rate 2020-09-01 06:00:00 62 /min [facility] Respiratory rate 2020-09-01 06:00:00 17 /min [facility] Oxygen saturation in 2020-09-01 06:00:00 97 /min [facility] Arterial blood by [facility] Pulse oximetry Branch Body temperature 2020-09-01 04:13:00 36.06 Nyla [facility] Body height 2020-09-01 02:01:00 185.4 cm [facility] Body weight 2020-09-01 02:01:00 72.576 kg [facility] BMI 2020-09-01 02:01:00 21.11 kg/m2 [facility] Systolic blood 2019-04-13 19:00:00 123 mm[Hg] Univer sity of pressure [facility] [place] [facility] Diastolic blood 2019-04-13 19:00:00 70 mm[Hg] Unive rsity of pressure [facility] [place] [facility] Heart rate 2019-04-13 19:00:00 81 /[facility] 2019-04-13 19:00:00 15 /[facility] in 2019-04-13 19:00:00 95 /min [facility] Arterial blood by [facility] Pulse oximetry Branch BMI 2019-04-13 15:48:00 20.00 kg/m2 [facility] Body temperature 2019-04-13 15:48:00 36.61 Nyla [facility] Body weight 2019-04-13 15:48:00 72.576 kg [facility] BP Systolic 2021-12-16 10:23:00 121 mm[Hg] BP Diastolic 2021-12-16 10:23:00 69 mm[Hg] Weight Measured 2021-12-16 10:23:00 150.00 pounds Height Measured 2021-12-16 10:23:00 66.00 inches Body Temperature 2021-12-16 10:23:00 98.30 degrees Heart Rate 2021-12-16 10:23:00 62.00 /min Respiratory Rate 2021-12-16 10:23:00 18.00 /min BP Systolic 2021-11-04 09:12:00 148 mm[Hg] BP [...] ABDOMEN PELVIS W 2020-09-01 04:02:56 Taqueria Correa [facility] CONTRAST [facility] Branch CT HEAD WO CONTRAST 2020-09-01 03:52:46 Taqueria Correa [facility] COVID-19 (ID NOW RAPID 2020-09-01 03:19:00 Taqueria Correa [facility] CREATINE KINASE 2020-09-01 02:29:00 Taqueria Correa [facility] LIPASE 2020-09-01 02:29:00 Taqueria Correa [facility] MAGNESIUM 2020-09-01 02:29:00 Taqueria Correa [facility] TROPONIN I 2020-09-01 02:29:00 Taqueria Correa [facility] COMP. METABOLIC PANEL 2020-09-01 02:29:[address] [facility] ([id number]) [facility] Branch CBC WITH DIFF 2020-09-01 02:29:00 Taqueria Correa [facility] URINALYSIS 2020-09-01 02:23:00 Taqueria Correa [facility] XR CHEST 1 VW 2020-09-01 02:20:38 Taqueria Correa [facility] CT ABDOMEN PELVIS WO 2019-04-13 19:14:59 Josefa Soria [facility] LIPASE 2019-04-13 17:45:00 Josefa Soria [facility] TROPONIN I 2019-04-13 17:45:00 Josefa Soria [facility] HEPATIC FUNCTION PANEL 2019-04-13 17:45:00 Josefa Soria [facility] ([id number]) (ALB,T.PRO,BILI [facility] Branch T,BU/BC,ALT,AST,ALK PHOS) BASIC METABOLIC PANEL 2019-04-13 17:45:00 Josefa Soria [facility] (NA, K, CL, CO2, Medical Branch GLUCOSE, BUN, CREATININE, CA) XR CHEST 1 VW 2019-04-13 16:27:33 Josefa Soria [facility] CBC WITH DIFFERENTIAL 2019-04-13 16:18:00 Josefa Soria [facility] EKG-12 LEAD 2019-04-13 16:00:50 Josefa Soria [facility] Plan of Care Planned Activity Planned Date Details Comments Source Goal Plan of Care Note [code = 52684-4] Goal Plan of Care Note [code = 03134-7] Goal Plan of Care Note [code = 75781-4] Goal Plan of Care Note [code = 23630-6] Goal Plan of Care Note [code = 80803-4] Goal Plan of Care Note [code = 71347-9] Goal Plan of Care Note [code = 52903-0] Goal Plan of Care Note [code = 45354-1] Goal Plan of Care Note [code = 82333-4] Goal Plan of Care Note [code = 69610-8] Goal Plan of Care Note [code = 80334-5] Goal Plan of Care Note [code = 19052-8] Goal Plan of Care Note [code = 51454-0] Goal Plan of Care Note [code = 05884-4] Goal Plan of Care Note [code = 01854-8] Goal Plan of Care Note [code = 58034-8] Goal Plan of Care Note [code = 58950-5] Goal Plan of Care Note [code = 52985-5] Goal Plan of Care Note [code = 81312-7] Goal Plan of Care Note [code = 78100-1] Goal Plan of Care Note [code = 87238-9] Goal Plan of Care Note [code = 17585-4] Goal Plan of Care Note [code = 38974-2] Goal Plan of Care Note [code = 09374-0] Goal Plan of Care Note [code = 21565-6] Goal Plan of Care Note [code = 41151-6] Goal Plan of Care Note [code = 13980-3] Goal Plan of Care Note [code = 09174-5] Goal Plan of Care Note [code = 33142-8] Goal Plan of Care Note [code = 30156-0] Goal Plan of Care Note [code = 58894-8] Goal Plan of Care Note [code = 73333-1] Goal Plan of Care Note [code = 31988-8] Goal Plan of Care Note [code = 31469-0] Goal Plan of Care Note [code = 21812-7] Goal Plan of Care Note [code = 82627-8] Goal Plan of Care Note [code = 71952-4] Goal Plan of Care Note [code = 40670-1] Goal Plan of Care Note [code = 81318-8] Goal Plan of Care Note [code = 92456-4] Goal Plan of Care Note [code = 61363-3] Goal Plan of Care Note [code = 09322-2] Goal Plan of Care Note [code = 03426-4] Goal Plan of Care Note [code = 77138-2] Goal Plan of Care Note [code = 64913-9] Goal Plan of Care Note [code = 67542-9] Goal Plan of Care Note [code = 01544-0] Goal Plan of Care Note [code = 44937-8] Goal Plan of Care Note [code = 81948-7] Goal Plan of Care Note [code = 68398-4] Goal Plan of Care Note [code = 14852-0] Goal Plan of Care Note [code = 98332-5] Goal Plan of Care Note [code = 72923-1] Goal Plan of Care Note [code = 84951-8] Goal Plan of Care Note [code = 94635-0] Goal Plan of Care Note [code = 67641-3] Goal Plan of Care Note [code = 16363-8] Goal Plan of Care Note [code = 04865-1] Goal Plan of Care Note [code = 11715-2] Goal Plan of Care Note [code = 23531-9] Goal Plan of Care Note [code = 12134-6] Goal Plan of Care Note [code = 23090-3] Goal Plan of Care Note [code = 70461-8] Goal Plan of Care Note [code = 39991-7] Goal Plan of Care Note [code = 16042-1] Goal Plan of Care Note [code = 91448-8] Goal Plan of Care Note [code = 08381-9] Goal Plan of Care Note [code = 15125-0] Goal Plan of Care Note [code = 43538-9] Goal Plan of Care Note [code = 56163-4] Goal Plan of Care Note [code = 69522-7] Goal Plan of Care Note [code = 35208-8] Goal Plan of Care Note [code = 27158-8] Goal Plan of Care Note [code = 56926-5] Goal Plan of Care Note [code = 96252-0] Goal Plan of Care Note [code = 47198-5] Goal Plan of Care Note [code = 79107-6] Goal Plan of Care Note [code = 21419-6] Goal Plan of Care Note [code = 51762-5] Goal Plan of Care Note [code = 90865-9] Goal Plan of Care Note [code = 22126-0] Goal Plan of Care Note [code = 36128-5] Goal Plan of Care Note [code = 71318-1] Goal Plan of Care Note [code = 83877-5] Goal Plan of Care Note [code = 68136-9] Goal Plan of Care Note [code = 61176-1] Goal Plan of Care Note [code = 76069-0] Goal Plan of Care Note [code = 04422-9] Goal Plan of Care Note [code = 05073-7] Goal Plan of Care Note [code = 82830-3] Goal Plan of Care Note [code = 72483-3] Goal Plan of Care Note [code = 57928-3] Goal Plan of Care Note [code = 91816-3] Goal Plan of Care Note [code = 03489-9] Goal Plan of Care Note [code = 84930-2] Goal Plan of Care Note [code = 24333-7] Goal Plan of Care Note [code = 73608-2] Goal Plan of Care Note [code = 70207-0] Goal Plan of Care Note [code = 79034-8] Goal Plan of Care Note [code = 12229-5] Goal Plan of Care Note [code = 21696-9] Goal Plan of Care Note [code = 13110-3] Goal Plan of Care Note [code = 90000-7] Goal Plan of Care Note [code = 97903-0] Goal Plan of Care Note [code = 10187-1] Goal Plan of Care Note [code = 17549-0] Goal Plan of Care Note [code = 21503-5] Goal Plan of Care Note [code = 05180-8] Goal Plan of Care Note [code = 62338-5] Goal Plan of Care Note [code = 82010-0] Goal Plan of Care Note [code = 76050-1] Goal Plan of Care Note [code = 36635-5] Goal Plan of Care Note [code = 89131-8] Goal Plan of Care Note [code = 50441-6] Goal Plan of Care Note [code = 50395-3] Goal Plan of Care Note [code = 97231-7] Goal Plan of Care Note [code = 26550-0] Goal Plan of Care Note [code = 59562-4] Goal Plan of Care Note [code = 11696-7] Goal Plan of Care Note [code = 88455-5] Goal Plan of Care Note [code = 87505-9] Goal Plan of Care Note [code = 17145-1] Goal Plan of Care Note [code = 31036-5] Goal Plan of Care Note [code = 26737-3] Goal Plan of Care Note [code = 79127-4] Goal Plan of Care Note [code = 75288-5] Goal Plan of Care Note [code = 10006-6] Goal Plan of Care Note [code = 21697-9] Goal Plan of Care Note [code = 84832-1] Goal Plan of Care Note [code = 13587-3] Goal Plan of Care Note [code = 28766-3] Goal Plan of Care Note [code = 98977-7] Goal Plan of Care Note [code = 51018-7] Goal Plan of Care Note [code = 48363-2] Goal Plan of Care Note [code = 29499-4] Goal Plan of Care Note [code = 25826-3] Encounters Start End Encounter Admission Attending Care Care Encounter Source Date/Time Date/Time Type Type Clinicians Facility Department ID 2021-12-16 2021-12-[address] [facility] SFA [id number] Ken 10:16:19 10:16:19 1004 F Franco 2021-12-16 2021-12-16 Outpatient [id number] 00:00:00 00:00:00 Visit [id number] [id number]-i -adb0-daa db0-daaab5 [id number] 2021-11-04 2021-11-04 Outpatient [id number] 00:00:00 00:00:00 Visit 39k1-88e9 0a1-57w3-7 -9bfd-45c [id number] 2021-10-17 2021-10-17 Outpatient [id number] [id number] 00:00:00 00:00:00 Visit 36af-43ea 6af-43ea-9 -6e82-3q3 e61-8d1g51 q41v88q68 b65d65 2021-09-24 2021-09-24 Outpatient [id number]- [id number] vw40f6-e 00:00:00 00:00:00 Visit ebd4-4120 bd4-4120-8 -859f-c80 59f-c80cf7 dd5ckq3l4 cde6a8 2020-12-04 2020-12-04 Outpatient Young_J [facility] [id number] [place] 02:27:00 02:27:00 0922 [facility] 2020-12-03 2020-12-03 [facility] [id number] [place] 02:48:00 02:48:00 0921 [facility] 2020-08-31 2020-09-01 Emergency [facility] [id number] 20:50:00 03:00:00 [facility] [facility] [id number] [facility] [id number] [facility] [id number] [address] 2020-08-31 2020-08-31 Emergency [facility] ERT [id number] [facility] 20:50:00 20:50:00 [facility] 2019-04-13 2019-04-13 Emergency [facility] [id number] [facility] 09:45:35 14:11:00 Josefa Lee Morales [id number] [facility] [id number] [facility] [id number] [address] 2019-04-13 2019-04-13 Emergency X [facility] ERT [id number] [facility] 09:45:35 14:11:00 [facility] Results Test Description Test Time Test Comments [...] code = 4958) 13 NG/ML TSH, THIRD [id number] 06:38:23 Test Item Value Reference Range Interpretation Comments TSH, THIRD GENERATION (test code 2.840 UIU/ML 0.400-4.100 = 2821) CBC W/AUTO DIFF WITH [id number] 04:49:57 Test Item Value Reference Range Interpretation [...] RBCS 0.00 K/UL 0.00-0.11 (test code = 52481) COMPREHENSIVE METABOLIC [id number] 04:02:36 Test Item Value Reference Range Interpretation Comments GLUCOSE (test code = 125 MG/DL 70-99 H 2216) BUN (test code = 20 MG/DL 8-23 2207) CREATININE (test 1.30 MG/DL 0.80-1.40 code = 2214) eGFR (2020 CKD-EPI) 54 >60 L (test code = 95296) ML/MIN/1.73 CALC BUN/CREAT (test 15 RATIO 6-28 code = 2235) SODIUM (test code = 137 MEQ/L 125-658 2202) POTASSIUM (test code 4.5 MEQ/L 3.5-5.4 = 2228) CHLORIDE (test code 103 MEQ/L 95-107 = 2215) CARBON DIOXIDE (test 19 MEQ/L 19-31 code = 2206) CALCIUM (test code = 9.5 MG/DL 8.5-10.5 2208) PROTEIN, TOTAL (test 6.9 G/DL 6.1-8.3 code = 2229) ALBUMIN (test code = 3.9 G/DL 3.5-5.2 2200) CALC GLOBULIN (test 3.0 G/DL 1.9-3.7 code = 2240) CALC A/G RATIO (test 1.3 RATIO 1.0-2.6 code = 2234) BILIRUBIN, TOTAL 1.3 MG/DL See_Comment H [Automated [...] INDICATED, ALL TESTING PERFORM ED ATCLINICAL PATH OLOGY LABORATORIES, [facility]. [address] [place] [id number] [place] [address] DIRECTOR: KERA ALBARADO M.D. CLIA NUMBER [id number] CAP ACCREDITATION N O. [id number] TSH, THIRD GENERATION [ADDED]2021-09-25 00:00:00 Test Item [...] NUCLEATED RBCS (test code = 0.00 K/UL 59969) CBC W/AUTO DIFF WITH PLATELETS [ADDED]2021-09-25 00:00:00 [...] NUCLEATED RBCS (test code = 0.00 K/UL 06744) CBC W/AUTO DIFF WITH PLATELETS [ADDED]2021-09-25 00:00:00 [...] NUCLEATED RBCS (test code = 0.00 K/UL 24084) COMPREHENSIVE METABOLIC PANEL [ADDED]2021-09-25 00:00:00 Test Item Value Reference Range Interpretation Comments GLUCOSE (test code = 2217) 125 MG/DL BUN (test code = 2208) 20 MG/DL CREATININE (test code = 2214) 1.30 MG/DL eGFR (2020 CKD-EPI) (test code 54 ML/MIN/1.73 = 95004) CALC BUN/CREAT (test code = 15 RATIO 2235) SODIUM (test code = 2231) 137 MEQ/L POTASSIUM (test code = 2228) 4.5 MEQ/L CHLORIDE (test code = 2215) 103 MEQ/L CARBON DIOXIDE (test code = 19 MEQ/L 2205) CALCIUM (test code = 2209) 9.5 MG/DL PROTEIN, TOTAL (test code = 6.9 G/DL 222) ALBUMIN (test code = 2201) 3.9 G/DL CALC GLOBULIN (test code = 3.0 G/DL 224) CALC A/G RATIO (test code = 1.3 RATIO 2234) BILIRUBIN, TOTAL (test code = 1.3 MG/DL 220) ALKALINE PHOSPHATASE (test 89 U/L code = 2204) AST (test code = 2218) 25 U/L ALT (test code = 2219) 21 U/L COMPREHENSIVE METABOLIC PANEL [ADDED]2021-09-25 00:00:00 Test Item Value Reference Range Interpretation Comments GLUCOSE (test code = 2217) 125 MG/DL BUN (test code = 2208) 20 MG/DL CREATININE (test code = 2214) 1.30 MG/DL eGFR (2020 CKD-EPI) (test code 54 ML/MIN/1.73 = 27087) CALC BUN/CREAT (test code = 15 RATIO 2235) SODIUM (test code = 2231) 137 MEQ/L POTASSIUM (test code = 2228) 4.5 MEQ/L CHLORIDE (test code = 2215) 103 MEQ/L CARBON DIOXIDE (test code = 19 MEQ/L 2206) CALCIUM (test code = 2209) 9.5 MG/DL PROTEIN, TOTAL (test code = 6.9 G/DL 222) ALBUMIN (test code = 2201) 3.9 G/DL CALC GLOBULIN (test code = 3.0 G/DL 2240) CALC A/G RATIO (test code = 1.3 RATIO 4) BILIRUBIN, TOTAL (test code = 1.3 MG/DL [...] NUCLEATED RBCS (test code = 0.00 K/UL 34847) CBC W/AUTO DIFF WITH PLATELETS [ADDED]2021-09-25 00:00:00 [...] NUCLEATED RBCS (test code = 0.00 K/UL 09401) CBC W/AUTO DIFF WITH PLATELETS [ADDED]2021-09-25 00:00:00 [...] NUCLEATED RBCS (test code = 0.00 K/UL 76075) COMPREHENSIVE METABOLIC PANEL [ADDED]2021-09-25 00:00:00 Test Item Value Reference Range Interpretation Comments GLUCOSE (test code = 2217) 125 MG/DL BUN (test code = 2208) 20 MG/DL CREATININE (test code = 2214) 1.30 MG/DL eGFR (2020 CKD-EPI) (test code 54 ML/MIN/1.73 = 21010) CALC BUN/CREAT (test code = 15 RATIO [...] (2020 CKD-EPI) (test code 54 ML/MIN/1.73 = 49564) CALC BUN/CREAT (test code = 15 RATIO [...] CALC GLOBULIN (test code = 3.0 G/DL 2239) CALC A/G RATIO (test code = 1.3 RATIO 2233) BILIRUBIN, TOTAL (test code = 1.3 MG/DL [...] NUCLEATED RBCS (test code = 0.00 K/UL 00343) CBC W/AUTO DIFF WITH PLATELETS [ADDED]2021-09-25 00:00:00 [...] NUCLEATED RBCS (test code = 0.00 K/UL 32064) CBC W/AUTO DIFF WITH PLATELETS [ADDED]2021-09-25 00:00:00 [...] NUCLEATED RBCS (test code = 0.00 K/UL 53694) COMPREHENSIVE METABOLIC PANEL [ADDED]2021-09-25 00:00:00 Test Item Value Reference Range Interpretation Comments GLUCOSE (test code = 2217) 125 MG/DL BUN (test code = 2208) 20 MG/DL CREATININE (test code = 2214) 1.30 MG/DL eGFR (2020 CKD-EPI) (test code 54 ML/MIN/1.73 = 87862) CALC BUN/CREAT (test code = 15 RATIO [...] (2020 CKD-EPI) (test code 54 ML/MIN/1.73 = 06763) CALC BUN/CREAT (test code = 15 RATIO [...] = 2219) 21 U/L VITAMIN D, 25 [id number] 00:00:00 Test Item Value Reference Range Interpretation Comments VITAMIN D, 25 OH (test code = 4958) 18 NG/ML VITAMIN D, 25 [id number] 00:00:00 Test Item Value Reference Range Interpretation Comments VITAMIN D, 25 OH (test code = 4958) 18 NG/ML VITAMIN D, 25 [id number] 00:00:00 Test Item Value Reference Range Interpretation Comments VITAMIN D, 25 OH (test code = 4958) 18 NG/ML VITAMIN D, 25 [id number] 00:00:00 Test Item Value Reference Range Interpretation Comments VITAMIN D, 25 OH (test code = 4958) 18 NG/ML VITAMIN D, 25 [id number] 00:00:00 Test Item Value Reference Range Interpretation Comments VITAMIN D, 25 OH (test code = 4958) 18 NG/ML VITAMIN D, 25 [id number] 00:00:00 Test Item Value Reference Range Interpretation Comments VITAMIN D, 25 OH (test code = 4958) 18 NG/ML VITAMIN D, 25 [id number] 00:00:00 Test Item Value Reference Range Interpretation Comments VITAMIN D, 25 OH (test code = 4958) 18 NG/ML [id number] 05:18:25 Test Item Value Reference Range Interpretation Comments MAGNESIUM (test code = 0741058116) 2.0 mg/dL 1.7-2.4 Lab Interpretation (test code = Normal 76915-8) [facility] [id number] 05:18:05 Test Item Value Reference Range Interpretation Comments CK (test code = 2706995884) 102 U/L 33-194 Lab Interpretation (test code = Normal 23392-6) [facility] (ID NOW RAPID TESTING)2020-09-01 04:00:42 Test Item Value Reference Range Interpretation Comments SARS-CoV-2 Rapid ID NOW Not Detected Not Detected (test code = 72638-1) JOAN (test code = JOAN) ID NOW COVID-19 Assay is an isothermal nucleic acid amplification test intended for the qualitative detection of nucleic acid from SARS-CoV-2 viral RNA in nasopharyngeal ([employer]CH[employer]SULT[employer]) specimens. It is used under Emergency Use [...] indicated. Lab Interpretation Normal (test code = 42486-4) [facility] [id number] 03:04:17 Test Item Value Reference Range Interpretation Comments TROPONIN I (test 0.005 ng/mL See_Comment [Automated code = 9805199172) message] The system which generated this result [...] ? Lab Interpretation Normal (test code = 47422-1) [facility]2021-06-20 02:57:28 Test Item Value Reference Range Interpretation Comments APPEARANCE (test code = Clear Clear 7874879491) COLOR (test code = Straw Yellow A 3570312241) PH (test code = 4.8-8.0 4548042604) SP GRAVITY (test code = 1.003-1.030 7507664288) GLU U QUAL (test code = Normal Normal 3642877034) BLOOD (test code = Negative Negative 6836481528) KETONES (test code = Negative Negative 4453924815) PROTEIN (test code = Negative Negative 2887-8) UROBILIN (test code = Normal Normal 9408480896) BILIRUBIN (test code = Negative Negative 0045347679) NITRITE (test code = Negative Negative 0772974525) LEUK MADHU (test code = Negative Negative 5391195287) RBC/HPF (test code = See_Comment [Autom ated message] 0013188705) The system [employer] generated this result transmitted ref erence range: 0 - 3 HP F. The reference range was not used to int erpret this result as normal/abnormal . WBC/HPF (test code = See_Comment [Autom ated message] 8921665842) The system [employer] generated this result transmitted ref erence range: 0 - 5 HP F. The reference range was not used to int erpret this result as normal/abnormal . BACTERIA (test code = Few Negative A 9432158298) Lab Interpretation (test Abnormal code = 73739-4) [facility]. METABOLIC PANEL (10222)2020-09-01 02:52:37 Test Item Value Reference Range Interpretation Comments NA (test code = 137 mmol/L 135-145 2716324449) K (test code = 4.8 mmol/L 3.5-5.0 6992965184) CL (test code = 104 mmol/L 98-108 5007627290) CO2 TOTAL (test code = 27 mmol/L 23-31 9858324893) AGAP (test code = 2-16 2699909288) BUN (test code = 24 mg/dL 7-23 H 7713763612) GLUCOSE (test code = 83 mg/dL 70-110 3968469446) CREATININE (test code = 1.24 mg/dL 0.60-1.25 6698924141) TOTAL BILI (test code = 0.4 mg/dL 0.1-1.3 4233701011) CALCIUM (test code = 9.8 mg/dL 8.6-10.6 5718549171) T PROTEIN (test code = 7.4 g/dL 6.3-8.2 9520936637) ALBUMIN (test code = 3.8 g/dL 3.5-5.0 4449798703) ALK PHOS (test code = 107 U/L 34-122 8388298618) ALTv (test code = 30 U/L 5-50 1742-6) AST(SGOT) (test code = 36 U/L 13-40 2761438294) eGFR (test code = mL/min/1.73m2 5050440028) JOAN (test code = JOAN) Association of [...] tests). Lab Interpretation Abnormal (test code = 82261-1) [facility] PasoLIP[facility], [id number] 02:52:17 Test Item Value Reference Range Interpretation Comments LIPASE (test code = 4585750215) 174 U/L 0-220 Lab Interpretation (test code = Normal 16410-3) [facility] WITH [id number] 02:40:45 Test Item Value Reference Range Interpretation Comments WBC (test code = See_Comment [Automated 6690-2) message] The sy stem which generated this result transmitted reference range : 4.20 - 10.70 10*3/?L. The reference range was not used to interpret this result as normal/abnormal . RBC (test code = See_Comment [Automated 789-8) message] The sy stem which generated this [...] RDW-SD (test code = 45.1 fL 38.5-51.6 06288-9) RDW-CV (test code = 16.2 % 12.1-15.4 H 788-0) PLT (test code = See_Comment [Automated 777-3) message] The sy stem which generated this result transmitted reference range : 150 - 328 10*3/ ?L. The reference r klarissa was not used to interpret this result as normal/abnormal . MPV (test code = 8.9 fL 9.8-13.0 L 07368-9) NRBC/100 WBC (test See_Comment [Automat ed code = 4456997522) message] The system which generated this result transmitted reference range : 0.0 - 10.0 /100 WBCs. The refer ence range was not u sed to interpret th is result as normal/abnormal . NRBC x10^3 (test code <0.01 See_Comment [Auto mated = 2697719237) message] The s ystem which generated this result transmitted reference range : 10*3/?L. The reference range was not used to interpret this result as normal/abnormal . GRAN MAT (NEUT) % 59.5 % (test code = 770-8) IMM GRAN % (test code 1.00 % = 4389547730) LYMPH % (test code = 25.2 % 736-9) MONO % (test code = 11.9 % 5905-5) EOS % (test code = 2.1 % 713-8) BASO % (test code = 0.3 % 706-2) GRAN MAT x10^3(ANC) 3.63 10*3/uL 1.99-6.95 (test code = 7423993515) IMM GRAN x10^3 (test 0.06 10*3/uL 0.00-0.06 code = 9977118622) LYMPH x10^3 (test code 1.54 10*3/uL 1.09-3.23 = 731-0) MONO x10^3 (test code 0.73 10*3/uL 0.36-1.02 = 742-7) EOS x10^3 (test code = 0.13 10*3/uL 0.06-0.53 711-2) BASO x10^3 (test code <0.03 0.01-0.09 = 704-7) Lab Interpretation Abnormal (test code = 18195-6) [id number] 00:00:00 Test Item Value Reference Range Interpretation Comments VITAMIN B-12 (test code = 2840) 376 PG/ML VITAMIN [id number] 00:00:00 Test Item Value Reference Range Interpretation Comments VITAMIN B-12 (test code = 2840) 376 PG/ML VITAMIN [id number] 00:00:00 Test Item Value Reference Range Interpretation Comments VITAMIN B-12 (test code = 2840) 376 PG/ML VITAMIN [id number] 00:00:00 Test Item Value Reference Range Interpretation Comments VITAMIN B-12 (test code = 2840) 376 PG/ML VITAMIN [id number] 00:00:00 Test Item Value Reference Range Interpretation Comments VITAMIN B-12 (test code = 2840) 376 PG/ML VITAMIN [id number] 00:00:00 Test Item Value Reference Range Interpretation Comments VITAMIN B-12 (test code = 2840) 376 PG/ML VITAMIN [id number] 00:00:00 Test Item Value Reference Range Interpretation Comments VITAMIN B-12 (test code = 2840) 376 PG/ML VITAMIN [id number] 00:00:00 Test Item Value Reference Range Interpretation Comments VITAMIN B-12 (test code = 2840) 376 PG/ML VITAMIN [id number] 00:00:00 Test Item Value Reference Range Interpretation Comments VITAMIN B-12 (test code = 2840) 376 PG/ML VITAMIN [id number] 00:00:00 Test Item Value Reference Range Interpretation Comments VITAMIN B-12 (test code = 2840) 376 PG/ML VITAMIN [id number] 00:00:00 Test Item Value Reference Range Interpretation Comments VITAMIN B-12 (test code = 2840) 376 PG/ML VITAMIN D, 25 [id number] 00:00:00 Test Item Value Reference Range Interpretation Comments VITAMIN D, 25 OH (test code = 4958) 19 NG/ML VITAMIN D, 25 [id number] 00:00:00 Test Item Value Reference Range Interpretation Comments VITAMIN D, 25 OH (test code = 4958) 19 NG/ML VITAMIN D, 25 [id number] 00:00:00 Test Item Value Reference Range Interpretation Comments VITAMIN D, 25 OH (test code = 4958) 19 NG/ML VITAMIN D, 25 [id number] 00:00:00 Test Item Value Reference Range Interpretation Comments VITAMIN D, 25 OH (test code = 4958) 19 NG/ML VITAMIN D, 25 [id number] 00:00:00 Test Item Value Reference Range Interpretation Comments VITAMIN D, 25 OH (test code = 4958) 19 NG/ML VITAMIN D, 25 [id number] 00:00:00 Test Item Value Reference Range Interpretation Comments VITAMIN D, 25 OH (test code = 4958) 19 NG/ML VITAMIN D, 25 [id number] 00:00:00 Test Item Value Reference Range Interpretation Comments VITAMIN D, 25 OH (test code = 4958) 19 NG/ML COMPREHENSIVE METABOLIC [id number] 00:00:00 Test Item Value Reference Range Interpretation Comments GLUCOSE (test code = 2217) 107 MG/DL BUN (test code = 2208) 19 MG/DL CREATININE (test code = 2214) 1.12 MG/DL eGFR AMER. (test code 70 ML/MIN/1.73 = 35667) eGFR NON- AMER. (test 60 ML/MIN/1.73 code = 28397) CALC BUN/CREAT (test code = 17 RATIO 2235) SODIUM (test code = 2231) 139 MEQ/L POTASSIUM (test code = 2228) 4.2 MEQ/L CHLORIDE (test code = 2215) 101 MEQ/L CARBON DIOXIDE (test code = 27 MEQ/L 220) CALCIUM (test code = 2209) 9.7 MG/DL [...] code = 2219) 27 U/L COMPREHENSIVE METABOLIC [id number] 00:00:00 Test Item Value Reference Range Interpretation Comments GLUCOSE (test code = 2217) 107 MG/DL BUN (test code = 2208) 19 MG/DL CREATININE (test code = 2214) 1.12 MG/DL eGFR AMER. (test code 70 ML/MIN/1.73 = 82251) eGFR NON- AMER. (test 60 ML/MIN/1.73 code = 51185) CALC BUN/CREAT (test code = 17 RATIO [...] BILIRUBIN, TOTAL (test code = 0.5 MG/DL 2207) ALKALINE PHOSPHATASE (test 96 U/L code = 2204) AST (test code = 2218) 31 U/L ALT (test code = 2219) 27 U/L CBC W/AUTO [id number] 00:00:00 Test Item Value Reference Range Interpretation [...] code = 1015) 273 K/UL CBC W/AUTO [id number] 00:00:00 Test Item Value Reference Range Interpretation [...] code = 1015) 273 K/UL CBC W/AUTO [id number] 00:00:00 Test Item Value Reference Range Interpretation [...] COUNT (test code = 1015) 273 K/UL [id number] 00:00:00 Test Item Value Reference Range Interpretation Comments TSH, THIRD GENERATION (test code 4.320 UIU/ML = 2821) [id number] 00:00:00 Test Item Value Reference Range Interpretation Comments TSH, THIRD GENERATION (test code 4.320 UIU/ML = 2821) [id number] 00:00:00 Test Item Value Reference Range Interpretation Comments TSH, THIRD GENERATION (test code 4.320 UIU/ML = 2821) COMPREHENSIVE METABOLIC [id number] 00:00:00 Test Item Value Reference Range Interpretation Comments GLUCOSE (test code = 2217) 107 MG/DL BUN (test code = 2208) 19 MG/DL CREATININE (test code = 2214) 1.12 MG/DL eGFR AMER. (test code 70 ML/MIN/1.73 = 99244) eGFR NON- AMER. (test 60 ML/MIN/1.73 code = 48379) CALC BUN/CREAT (test code = 17 RATIO [...] BILIRUBIN, TOTAL (test code = 0.5 MG/DL 220) ALKALINE PHOSPHATASE (test 96 U/L code = 2204) AST (test code = 2218) 31 U/L ALT (test code = 2219) 27 U/L COMPREHENSIVE METABOLIC [id number] 00:00:00 Test Item Value Reference Range Interpretation Comments GLUCOSE (test code = 2217) 107 MG/DL BUN (test code = 2208) 19 MG/DL CREATININE (test code = 2214) 1.12 MG/DL eGFR AMER. (test code 70 ML/MIN/1.73 = 44812) eGFR NON- AMER. (test 60 ML/MIN/1.73 code = 90251) CALC BUN/CREAT (test code = 17 RATIO [...] code = 2219) 27 U/L CBC W/AUTO [id number] 00:00:00 Test Item Value Reference Range Interpretation [...] code = 1015) 273 K/UL CBC W/AUTO [id number] 00:00:00 Test Item Value Reference Range Interpretation [...] code = 1015) 273 K/UL CBC W/AUTO [id number] 00:00:00 Test Item Value Reference Range Interpretation [...] COUNT (test code = 1015) 273 K/UL [id number] 00:00:00 Test Item Value Reference Range Interpretation Comments TSH, THIRD GENERATION (test code 4.320 UIU/ML = 2821) [id number] 00:00:00 Test Item Value Reference Range Interpretation Comments TSH, THIRD GENERATION (test code 4.320 UIU/ML = 2821) [id number] 00:00:00 Test Item Value Reference Range Interpretation Comments TSH, THIRD GENERATION (test code 4.320 UIU/ML = 2821) COMPREHENSIVE METABOLIC [id number] 00:00:00 Test Item Value Reference Range Interpretation Comments GLUCOSE (test code = 2217) 107 MG/DL BUN (test code = 2208) 19 MG/DL CREATININE (test code = 2214) 1.12 MG/DL eGFR AMER. (test code 70 ML/MIN/1.73 = 72084) eGFR NON- AMER. (test 60 ML/MIN/1.73 code = 03118) CALC BUN/CREAT (test code = 17 RATIO [...] code = 2219) 27 U/L COMPREHENSIVE METABOLIC [id number] 00:00:00 Test Item Value Reference Range Interpretation Comments GLUCOSE (test code = 2217) 107 MG/DL BUN (test code = 2208) 19 MG/DL CREATININE (test code = 2214) 1.12 MG/DL eGFR AMER. (test code 70 ML/MIN/1.73 = 07271) eGFR NON- AMER. (test 60 ML/MIN/1.73 code = 32471) CALC BUN/CREAT (test code = 17 RATIO [...] code = 2219) 27 U/L CBC W/AUTO [id number] 00:00:00 Test Item Value Reference Range Interpretation [...] code = 1015) 273 K/UL CBC W/AUTO [id number] 00:00:00 Test Item Value Reference Range Interpretation [...] code = 1015) 273 K/UL CBC W/AUTO [id number] 00:00:00 Test Item Value Reference Range Interpretation [...] COUNT (test code = 1015) 273 K/UL [id number] 00:00:00 Test Item Value Reference Range Interpretation Comments TSH, THIRD GENERATION (test code 4.320 UIU/ML = 2821) [id number] 00:00:00 Test Item Value Reference Range Interpretation Comments TSH, THIRD GENERATION (test code 4.320 UIU/ML = 2821) [id number] 00:00:00 Test Item Value Reference Range Interpretation Comments TSH, THIRD GENERATION (test code 4.320 UIU/ML = 2821) COMPREHENSIVE METABOLIC [id number] 00:00:00 Test Item Value Reference Range Interpretation Comments GLUCOSE (test code = 2217) 107 MG/DL BUN (test code = 2208) 19 MG/DL CREATININE (test code = 2214) 1.12 MG/DL eGFR AMER. (test code 70 ML/MIN/1.73 = 91737) eGFR NON- AMER. (test 60 ML/MIN/1.73 code = 77702) CALC BUN/CREAT (test code = 17 RATIO [...] code = 2219) 27 U/L CBC W/AUTO [id number] 00:00:00 Test Item Value Reference Range Interpretation [...] code = 1015) 273 K/UL CBC W/AUTO [id number] 00:00:00 Test Item Value Reference Range Interpretation [...] COUNT (test code = 1015) 273 K/UL [id number] 00:00:00 Test Item Value Reference Range Interpretation Comments TSH, THIRD GENERATION (test code 4.320 UIU/ML = 2821) [id number] 00:00:00 Test Item Value Reference Range Interpretation Comments TSH, THIRD GENERATION (test code 4.320 UIU/ML = 2821) CBC W/AUTO [id number] 00:00:00 Test Item Value Reference Range Interpretation [...] code = 1015) 368 K/UL CBC W/AUTO [id number] 00:00:00 Test Item Value Reference Range Interpretation [...] code = 1015) 368 K/UL CBC W/AUTO [id number] 00:00:00 Test Item Value Reference Range Interpretation [...] code = 1015) 368 K/UL CBC W/AUTO [id number] 00:00:00 Test Item Value Reference Range Interpretation [...] code = 1015) 368 K/UL CBC W/AUTO [id number] 00:00:00 Test Item Value Reference Range Interpretation [...] code = 1015) 368 K/UL CBC W/AUTO [id number] 00:00:00 Test Item Value Reference Range Interpretation [...] code = 1015) 368 K/UL CBC W/AUTO [id number] 00:00:00 Test Item Value Reference Range Interpretation [...] code = 1015) 368 K/UL CBC W/AUTO [id number] 00:00:00 Test Item Value Reference Range Interpretation [...] code = 1015) 368 K/UL CBC W/AUTO [id number] 00:00:00 Test Item Value Reference Range Interpretation [...] code = 1015) 368 K/UL CBC W/AUTO [id number] 00:00:00 Test Item Value Reference Range Interpretation [...] code = 1015) 368 K/UL CBC W/AUTO [id number] 00:00:00 Test Item Value Reference Range Interpretation [...] 1015) 368 K/UL CT ABDOMEN PELVIS WO [id number] 19:21:37CT Abdomen and Pelvis without contrast. CLINICAL [...] by contrast enhanced CT scan and/or ultrasound. [facility], Radiant Results Inft User [...] furtherevaluated by contrast enhanced CT scan and/or ultrasound.[facility] [id number] 18:35:00 Test Item Value Reference Range Interpretation Comments TROPONIN I (test 0.015 ng/mL See_Comment [Automated code = 1169903343) message] The system which generated this result [...] ? Lab Interpretation Normal (test code = 65957-6) [facility] (ALB, T.PRO, BILI T, BU/BC, ALT, AST, ALK PHOS)2019-04-13 18:28:00 Test Item Value Reference Range Interpretation Comments TOTAL BILI (test code = 3358380373) 1.0 mg/dL 0.1-1.1 BILI UNCON (test code = 6874840314) 0.8 mg/dL 0.1-1.1 BILI CONJ (test code = 4452143697) 0.0 mg/dL 0-0.3 T PROTEIN (test code = 9957865517) 7.6 g/dL 6.3-8.2 ALBUMIN (test code = 3159401082) 3.9 g/dL 3.5-5 ALK PHOS (test code = 1956828108) 89 U/L 34-122 ALTv (test code = 1742-6) 22 U/L 5-50 AST(SGOT) (test code = 0758724320) 49 U/L 13-40 H Lab Interpretation (test code = Abnormal 81788-7) [facility] Metabolic Panel (NA, K, CL, CO2, GLUCOSE, BUN, CREATININE, CA)2019-04-13 18:28:00 Test Item Value Reference Range Interpretation Comments NA (test code = 130 mmol/L 135-145 L 9576925007) K (test code = 4.9 mmol/L 3.5-5 6002034057) CL (test code = 97 mmol/L 98-108 L 9126432081) CO2 TOTAL (test code = 21 mmol/L 23-31 L 8445750572) AGAP (test code = 2-16 5247391932) BUN (test code = 31 mg/dL 7-23 H 7688815267) GLUCOSE (test code = 89 mg/dL 70-110 5684760999) CREATININE (test code = 1.39 mg/dL 0.6-1.25 H 5248260626) CALCIUM (test code = 8.9 mg/dL 8.6-10.6 7516089423) eGFR Calculation mL/min/1.73m2 (Non-) (test code = 5044225796) eGFR Calculation mL/min/1.73m2 () (test code = 4996420176) JOAN (test code = JOAN) Association of [...] tests). Lab Interpretation Abnormal (test code = 82423-1) [facility]61[facility]28:00 Test Item Value Reference Range Interpretation Comments LIPASE (test code = 3740363514) 97 U/L 0-220 Lab Interpretation (test code = Normal 45385-6) [facility] WITH [id number] 16:31:00 Test Item Value Reference Range Interpretation Comments WBC (test code = See_Comment [Automated 3490-2) message] The sy stem which generated this result transmitted reference range : 4.20 - 10.70 10*3/?L. The reference range was not used to interpret this result as normal/abnormal . RBC (test code = See_Comment H [Automated 789-8) message] The sy stem which generated this [...] RDW-SD (test code = 39.0 fL 38.5-51.6 72251-1) RDW-CV (test code = 15.1 % 12.1-15.4 788-0) PLT (test code = See_Comment [Automated 777-3) message] The sy stem which generated this result transmitted reference range : 150 - 328 10*3/ ?L. The reference r klarissa was not used to interpret this result as normal/abnormal . MPV (test code = 8.9 fL 9.8-13 L 84817-5) NRBC/100 WBC (test See_Comment [Automat ed code = 2266243776) message] The system which generated this result transmitted reference range : 0.0 - 10.0 /100 WBCs. The refer ence range was not u sed to interpret th is result as normal/abnormal . NRBC x10^3 (test code <0.01 See_Comment [Auto mated = [id number]) message] The s ystem which generated this result transmitted reference range : 10*3/?L. The reference range was not used to interpret this result as normal/abnormal . GRAN MAT (NEUT) % 59.9 % (test code = 770-8) IMM GRAN % (test code 1.00 % = 7227623142) LYMPH % (test code = 26.3 % 736-9) MONO % (test code = 12.2 % 5905-5) EOS % (test code = 0.2 % 713-8) BASO % (test code = 0.4 % 706-2) GRAN MAT x10^3(ANC) 3.06 10*3/uL 1.99-6.95 (test code = 3990482979) IMM GRAN x10^3 (test 0.05 10*3/uL 0-0.06 code = 0946479768) LYMPH x10^3 (test code 1.34 10*3/uL 1.09-3.23 = 731-0) MONO x10^3 (test code 0.62 10*3/uL 0.36-1.02 = 742-7) EOS x10^3 (test code = <0.03 0.06-0.53 L 711-2) BASO x10^3 (test code <0.03 0.01-0.09 = 704-7) Lab Interpretation Abnormal (test code = 00435-8) [facility] 1 [id number] 16:30:04HISTORY: Chest pain. TECHNIQUE: 2 Portable AP [...] tortuous. CONCLUSIONS: No signs of acute cardiopulmonary disease.[facility], Radiant Results Inft User [...] and tortuous.CONCLUSIONS: No signs of acute cardiopulmonary disease.[facility]"
--- NOTE | 2021-12-31 18:54 | RAD REPORT ---
EXAM DESCRIPTION: RAD - Chest Pa And Lat (2 Views) - 12/31/2021 6:44 pm CLINICAL HISTORY: CHEST PAIN Chest pain. COMPARISON: Chest Single View dated 11/11/2021; Chest Single View dated 11/08/2021; Chest Single View dated 10/21/2021; Chest Single View dated 06/18/2020 FINDINGS: Chronic pleural and parenchymal scarring noted right inferior hemithorax. The left lung is hyperexpanded but clear. The heart is normal in size. Tortuous thoracic aorta. IMPRESSION: No acute or concerning finding suspected.
[2021-12-31] MEDS ORDERED: MORPHINE 2 MG/ML SYR ONE ×2 (19:28→22:17)
[2021-12-31] MEDS ORDERED: ONDANSETRON 4 MG/2 ML VIAL ONE (19:28)
[2021-12-31 20:08] LABS: Lymphocytes % 21.8 % (15.3-44.8); MCV 80.9 fL (80-100); MPV 7.2 fL (7.6-11.3); RBC Red Blood Cell Count 5.32 M/uL (4.33-5.43)
[2021-12-31 20:25] LABS: Albumin 3.1 g/dL (3.4-5.0); Bilirubin Total 0.6 mg/dL (0.2-1.0); Potassium 3.4 mmol/L (3.5-5.1)
[2021-12-31 20:42] LABS: Troponin High Sensitivity 65.3 pg/mL (<58.9)
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
[2022-01-01 00:08] LABS: Urine Blood Negative (Negative); Urine Glucose Negative (Negative); Urine Protein 1+ (Negative); Urine Specific Gravity >=1.030 (1.005-1.030)
[2022-01-01] MEDS ORDERED: POTASSIUM 25 MEQ EFFERV TAB ONE (00:12)
[2022-01-01 00:30] LABS: Troponin High Sensitivity 65.5 pg/mL (<58.9)
[2022-01-01 00:33] LABS: Urine Bacteria <20 /HPF (<20); Urine Mucus Slight /HPF (None Seen); Urine RBC <5 /HPF (None Seen)
[2022-01-01 00:56] LABS: Barbiturates NEGATIVE (NEGATIVE); Benzodiazepines NEGATIVE (NEGATIVE); Cocaine POSITIVE (NEGATIVE); METHAMPHETAM NEGATIVE (NEGATIVE); Methadone NEGATIVE (NEGATIVE); Opiates NEGATIVE (NEGATIVE); Phencyclidine NEGATIVE (NEGATIVE); THC Cannibis NEGATIVE (NEGATIVE)
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
[2022-01-01] MEDS: NA CHLORIDE 0.9% 1,000 ML IV SCH ×3 (02:59→22:59)
[2022-01-01] MEDS ORDERED: ONDANSETRON 4 MG/2 ML VIAL IV PRN (02:59)
[2022-01-01] MEDS ORDERED: ACETAMINOPHEN 325 MG TABLET PO PRN (02:59)
[2022-01-01 03:14] VITALS: BMI 23.7
[2022-01-01] MEDS ORDERED: NA CHLORIDE 0.9% 1,000 ML ONE ×3 (03:36→23:42)
[2022-01-01] MEDS ORDERED: MORPHINE 2 MG/ML SYR ONE ×4 (03:36→23:42)
[2022-01-01] MEDS: MORPHINE 2 MG/ML SYR IV PRN ×3 (04:16→23:40)
[2022-01-01 05:13] LABS: Absolute Lymphocytes (CBC) 1.3 K/uL (0.7-4.9); Hematocrit 42.8 % (39.6-49.0); MCV 82.2 fL (80-100); MPV 7.3 fL (7.6-11.3); RBC Red Blood Cell Count 5.21 M/uL (4.33-5.43)
[2022-01-01 05:41] LABS: Potassium 4.2 mmol/L (3.5-5.1)
[2022-01-01 05:42] LABS: Thyroid Stimulating Hormone 4.58 uIU/mL (0.360-3.740); Troponin High Sensitivity 61.8 pg/mL (<58.9)
[2022-01-01] MEDS ORDERED: PNEUMOCOCCAL VACCINE 0.5 ML IMVAC ONE (08:00)
[2022-01-01 08:53] LABS: SARS-CoV-2 Antigen Rapid Res Negative (Negative)
[2022-01-01] MEDS ORDERED: ASPIRIN EC 81 MG TAB PO ONE (08:57)
[2022-01-01] MEDS ORDERED: ENOXAPARIN 40 MG/0.4 ML SQ ONE (08:57)
[2022-01-01] MEDS ORDERED: ASPIRIN EC 81 MG TAB PO SCH (09:00)
[2022-01-01] MEDS ORDERED: ENOXAPARIN 40 MG/0.4 ML SQ SCH (09:00)
[2022-01-01] MEDS: LACTOSE REDUCED FOOD PO SCH ×2 (10:57→21:00)
--- NOTE | 2022-01-01 16:15 | EKG ---
Test Date: 2021-12-31 Test Time: 20:34:51 Tube Pusher: MEASUREMENT RESULTS: Intervals: Rate: 56 LA: 192 QRSD: 74 QT: 452 QTc: 436 Mitchell: P: 90 LA: 192 QRS: 81 T: 82 INTERPRETIVE STATEMENTS: Sinus bradycardia ST abnormality, possible digitalis effect Abnormal ECG Compared to ECG 11/25/2021 14:20:54 ST (T wave) deviation now present Sinus rhythm no longer present First degree AV block no longer present Electronically Signed On 01-01-22 16:13:41 CDT by Ross Bruno
[2022-01-01] MEDS ORDERED: ACETAMINOPHEN 325 MG TABLET ONE (17:29)
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
[2022-01-01] MEDS ORDERED: ATORVASTATIN 40 MG TAB PO SCH (21:00)
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
[2022-01-02] MEDS ORDERED: MORPHINE 2 MG/ML SYR ONE (04:34)
[2022-01-02] MEDS: MORPHINE 2 MG/ML SYR IV PRN (04:37)
[2022-01-02 04:41] VITALS: BP 152/88; TEMP 98
--- NOTE | 2022-01-02 07:16 | ECHO ---
HEIGHT: 6 ft 0 in WEIGHT: 175 lb 0 oz DATE OF STUDY: 01/01/[address]: Dolly Orozco 2-DIMENSIONAL: YES M.MODE: YES DOPPLER: YES COLOR FLOW: YES TDS: NO PORTABLE: YES DEFINITY: NO BUBBLE STUDY: NO DIAGNOSIS: ELEVATED TROPONIN CARDIAC HISTORY: CATHERIZATION: NO SURGERY: NO PROSTHETIC VALVE: NO PACEMAKER: NO MEASUREMENTS (cm) DIASTOLIC (NORMALS) SYSTOLIC (NORMALS) IVSd 1.0 (0.6-1.2) LA Diam 1.8 (1.9-4.0) LVEF 68% LVIDd 2.3 (3.5-5.7) LVIDs 1.5 (2.0-3.5) %FS 36% LVPWd 1.0 (0.6-1.2) Ao Diam 2.8 (2.0-3.7) 2 DIMENSIONAL ASSESSMENT: RIGHT ATRIUM: NORMAL LEFT ATRIUM: NORMAL RIGHT VENTRICLE: NORMAL LEFT VENTRICLE: NORMAL TRICUSPID VALVE: NORMAL MITRAL VALVE: PULMONIC VALVE: NORMAL AORTIC VALVE: NORMAL PERICARDIAL EFFUSION: NONE AORTIC ROOT: NORMAL LEFT VENTRICULAR WALL MOTION: NORMAL DOPPLER/COLOR FLOW: MILD MITRAL REGURGITATION. COMMENTS: NORMAL LEFT VENTRICULAR EJECTION FRACTION 60-65%. NORMAL WALL MOTION. MILD MITRAL REGURGITATION. MILD DIASTOLIC DYSFUNCTION. TECHNOLOGIST: Destini SORIA
[2022-01-02] MEDS ORDERED: HYDROCODONE/APAP 5/325 MG TAB PO ONE (10:26)
[2022-01-02 10:43] VITALS: O2SAT 98
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
--- NOTE | 2022-01-03 16:59 | EKG ---
Test Date: 2021-12-31 Test Time: 20:41:33 Childcare Teacher: MEASUREMENT RESULTS: Intervals: Rate: 56 NH: 172 QRSD: 68 QT: 446 QTc: 430 [place]: P: -12 NH: 172 QRS: 71 T: 86 INTERPRETIVE STATEMENTS: Sinus bradycardia Otherwise normal ECG Compared to ECG 12/31/2021 20:34:51 ST (T wave) deviation no longer present Electronically Signed On 01-03-22 16:54:49 CDT by Ross Bruno
== END 2022-01-02 11:30 | disposition home or self-care (01) ==
LOC: ER 17:38 → ERHOLD 01-01 01:22
PROVIDERS: ADMIT Internal Medicine; ATTEND Internal Medicine
DX: R07.9 Chest pain, unspecified (principal); R77.8 Other specified abnormalities of plasma proteins; F14.10 Cocaine abuse, uncomplicated; I10 Essential (primary) hypertension; Z85.038 Personal history of other malignant neoplasm of large intestine; Z21 Asymptomatic human immunodeficiency virus [HIV] infection status; Z59.00 Homelessness unspecified; N17.9 Acute kidney failure, unspecified; Z20.822 Contact with and (suspected) exposure to COVID-19; V19.3XXA Pedal cyclist (driver) (passenger) injured in unspecified nontraffic accident, initial encounter; Y93.9 Activity, unspecified; Y92.9 Unspecified place or not applicable
CPT/HCPCS: 93005 ×2; 93306; 85025 ×2; 80048; 36415; 83735; 82550; 80061; 84443; 84484 ×3; 84439; 80053; 80307; 70450; 71250; 72125; 71046; 96375; 96374; 99285; 87811; J1650; J2270 ×6; J7030 ×3; J2405; 81003; 81015; G0378

== ENCOUNTER 2022-01-24 09:04 | Emergency (ER) | payer OTHER ==
--- OUTSIDE RECORDS SUMMARY | 2022-01-24 09:35 | XMS REPORT | Continuity of Care Document ---
:1935 Author Organization [facility] t Address [address] [place] [address] Support Name Relationship Address Phone MAHDU AMARO Unavailable MD MARGARITO Emergency Provider [address] [phone] [place] [address] PHYSICIAN, NO Primary Care Physician Unavailable Unavailab BRAD Kapoor Family Member [address] [place] [address] LEIDY PASTRANA Primary Care Physician [address] [address] MD ISAMAR VIVEK Emergency Provider Unavailable Unavailable MD CANDACE GUERRA A Emergency Provider [facility] [place] [address] BRAD RIVAS Family Member [address] [place] [address] MD [facility] Provider [address] [place] [address] MD JAVAN NASCIMENTO JR Admitting Provider [address] [place] [address] MD JUANITA LINNETH Emergency Provider [email or web address] [address] MD JENNIFER Emergency Provider [address] [place] [address] MD BEVERLEY SEGAL Emergency Provider [address] [facility] [place] [address] MD CLAUDIA HERRING Emergency Provider [address] [phone] [place] [address] MD CINDY SCHWARZ Emergency Provider [address] [phone] [place] [address] MD SENTHIL TERRY Emergency Provider [address] [phone] [place] [address] MD JIGNESH DAWSON Emergency Provider [address] [place] [address] Care Team Providers Name Role Phone REJI PASTRANA Primary Care Physician Unavailable VALENCIA ARRINGTON Attending Clinician Unavailable Valencia Le Attending Clinician Slona Attending Clinician Unavailable Taqueria Correa MD Attending Clinician TAQUERIA CORREA Attending Clinician Unavailable Josefa Soria DO Attending Clinician JOSEFA SORIA Attending Clinician Unavailable VALENCIA ARRINGTON Admitting Clinician Unavailable Sloan Admitting Clinician Unavailable JOSEFA SORIA Admitting Clinician Unavailable Payers Payer Name Policy Type Policy Number Effective Date Expiration Date Gaviota petit [facility] DUAL [id number] 2021 COMP CHOICE PPO 00:00:00 DSNP MEDICAID [facility] [id number] 2020 00:00:00 [place] B-[place]: [id number] 2002 Morning Tec 00:00:00 RUTLEDGEJoturl [id number] 2019 [facility] (MEDICAID 00:00:00 HMO) Problems Condition Condition Condition Status Onset Resolution Last Treating Co mments Source Name Details Category Date Date Treatment Clinician Date Head Head Disease Active 2013-03 Univers injury, injury, 0-15 ity of acute, acute, 00:00: [place] initial initial 00 Medical encounter encounter Bran ch Skull Skull Disease Active Overview: Univer s fracture fracture 8-19 Formattin ity of 00:00: g of this [...] wall 8-19 ity of fracture fracture 00:00: [place] 00 Medical Branch Zygomatic Zygomatic Disease Active Uni vers fracture fracture 8- ity of 00:00: [place] 00 Medical Branch Ulna Ulna Disease Active Univers fracture, fracture, 8 ity of left, left, 00:00: [place] closed, closed, 00 Medical initial initial Branch encounter encounter Traumatic Traumatic Disease Active Uni vers brain brain 8- ity of injury injury 00:00: [place] 00 [facility] Allergies, Adverse Reactions, Alerts Allergy Allergy Status Severity Reaction(s) Onset Inactive Treating Comm ents Source Name Type Date Date Clinician NO KNOWN Drug Active Univers ALLERGIE Class ity of S [facility] Social History Social Habit Start Date Stop Date Quantity Comments Source History of tobacco 1954-10-13 Cigar Smoker Univ ersity of use 00:00:00 [facility] Exposure to 2022-01-01 2022-01-11 Not sure University SARS-CoV-2 (event) 00:00:00 12:41:00 [facility] Alcohol intake 2022-01-11 2022-01-11 2.5 /d University 00:00:00 00:00:00 [facility] Cigarettes smoked 2013-10-31 2013-10-31 Univers ity of current (pack per 00:00:00 00:00:00 ) - Reported [place] Cigarette 2013-10-31 2013-10-31 University of pack-years 00:00:00 00:00:00 [facility] Tobacco use and 2013-10-31 2013-10-31 Smokeless Universit y of exposure 00:00:00 00:00:00 tobacco non-user [facility] Sex Assigned At [birth year] Universit y of 00:00:00 00:00:00 [facility] Smoking Status Start Date Stop Date Source Smokes tobacco daily 2013-10-31 00:00:00 Univers ity of [facility] Medications Ordered Filled Start Stop Current Ordering Indication Dosage Frequency Signature Comments Components Source Medication Medication Date Date Medication? Clinician (SIG) Name Name FENTanyl PF 2021-03- No 50ug 50 mcg, Un cristo (SUBLIMAZE 0-30 10-30 Slow IV ity o f (PF)) 19:15: 18:29 Push, [place] injection 00 :00 ONCE, 1 Medical 50 mcg dose, On Branch 01/11/22 at 1415, RYLEY iopamidol 2021-03- No [id number] 70mL 70 mL, Univers (ISOVUE 0-30 10-30 Intravenou ity o f 370-500 mL) 19:00: 19:15 s, ONCE, 1 [place] injection 00 :00 dose, On Medica l 70 mL Sun Branch 01/11/22 at 1415, Routine NaCl 0.9% 2021-03- No 500mL at 999 Univ ers (NS) bolus 0-30 10-30 mL/hr, 500 it y of infusion 19:00: 20:08 mL, IV [place] 500 mL 00 :00 Infusion, Medical ONCE, 1 Branch dose, On [place] 01/11/22 at 1400, RYLEY sodium 2021-03 Yes 5mL 5 mL, Univers chloride 0-30 Intravenou ity o f (NS) 17:58: s, PRN, [place] injection 5 27 Starting Medi tobin mL on [facility] 01/11/22 at 1258, Until Discontinu ed, Routine, IV line flushing DICLOFENAC 2021-[address] 0-03 75 [...] &lt 2022-0 No 7-18 00:00: 00 Dose 2021-0 No [...] &lt 2021-0 No 300 7-13 00:00: 00 diclofenac 2021-0 No 2% 3 % topical 7-13 gel 00:00: 00 lidocaine 5 2021-0 No 1% % topical 7-13 patch 00:00: 00 Dose 2-0 No Unknown 09-24 00:00: 00 Vitamin D3 2021-0 No 1(1,000 25 mcg 7-13 unit) (1,000 00:00: unit) 00 capsule INHALE 2 2021-0 No PUFFS BY 7-13 MOUTH EVERY 00:00: 4 TO 6 00 HOURS FOR WHEEZING / SHORTNESS OF BREATH &lt 2-0 No 300 09-24 00:00: 00 INHALE 2 2021-0 No PUFFS [...] % topical 6-22 cream 00:00: 00 ibuprofen 2020-0 No 1mg 800 mg 6-22 tablet 00:00: 00 permethrin 1-0 No % 5 % topical 6-22 cream 00:00: 00 ibuprofen 1-0 No 1mg 800 mg 6-22 tablet 00:00: 00 ketorolac 2020-0 2020- No 15mg 15 mg, Unive rs (TORADOL) 09-01 06-20 Slow IV ity of injection 06:45: 06:00 Push, [place] 15 mg 00 :00 ONCE, 1 Medical dose, [facility] 09/01/20 at 0145, Routine
crew member approving Restricted medication : TAQUERIA CORREA iopamidol 2020- No [id number] 100mL 100 mL, Univers (ISOVUE 09-01-20 Intravenou ity o f 370-500 mL) 05:15: 03:57 s, ONCE, 1 [place] injection 00 :00 dose, [place] Medic al 100 mL 09/01/20 at Branch [...] Pain (scale 7-10). Indication s: acute pain acetaminoph 1-0 Yes [id number] 1{tbl} Take 1 Un cristo en-codeine 6-20 tablet by ity of (TYLENOL-CO 00:00: mouth [place] DEINE #3) 00 every 4 Medical 300-30 mg (four) Branch tablet hours as needed for Pain (scale 7-10). Indication s: acute pain sulfamethox 1-0 No 1mg azole 800 6-02 mg-trimetho 00:00: prim 160 mg 00 tablet ibuprofen 1-0 No 1mg 800 mg 6-02 tablet 00:00: 00 sulfamethox 2021-0 No 1mg azole 800 6-02 mg-trimetho 00:00: prim 160 mg 00 tablet ibuprofen 1-0 No 1mg 800 mg 6-02 tablet 00:00: 00 sulfamethox 2021-0 No 1mg azole 800 6-02 mg-trimetho 00:00: prim 160 mg 00 tablet ibuprofen 1-0 No 1mg 800 mg 6-02 tablet 00:00: 00 sulfamethox 2021-0 No 1mg azole 800 6-02 mg-trimetho 00:00: prim 160 mg 00 tablet ibuprofen 2021-0 No 1mg 800 mg 6-02 tablet 00:00: [...] 7.5 mg 2-05 tablet 00:00: 00 gabapentin 2019-1 No 1mg 100 mg 2-05 capsule 00:00: 00 Pepcid 20 2019-1 No 1mg mg tablet 28 00:00: 00 Pepcid 20 2019-1 No 1mg mg tablet 04-11 00:00: 00 Pepcid 20 2019-1 No 1mg mg tablet 04-11 00:00: 00 Pepcid 20 2019- No 1mg mg tablet 04-11 00:00: 00 mupirocin 2 2019- No 1% [...] mg 7-18 tablet 00:00: 00 ondansetron 2019-0 2020- No 4mg 4 mg, Slow Univers (ZOFRAN 04-13-30 IV Push, ity of (PF)) 17:15: 16:27 [...] 04/13/19 at 1015, RYLEY ondansetron 2019-0 Yes [id number] 4mg Take 1 Univers (ZOFRAN 1-30 tablet by ity of ODT) 4 mg 00:00: mouth [place] disintegrat 00 every 8 Medic al ing tablet (eight) Branch hours as needed for Nausea and Vomiting (N/V). ondansetron 2020-0 Yes [id number] 4mg Take 1 Univers (ZOFRAN 1-30 tablet by ity of ODT) 4 mg 00:00: mouth [place] disintegrat 00 every 8 Medic al ing tablet (eight) Branch hours as needed for Nausea and Vomiting (N/V). ondansetron 2019-0 Yes [id number] 4mg Take 1 Univers (ZOFRAN 1-30 tablet [...] ity o f (TYLENOL 00:00: every 4 [place] #3) 300-30 00 (four) Medical mg tablet [...] ity o f (TYLENOL 00:00: every 4 [place] #3) 300-30 00 (four) Medical mg tablet [...] ity o f (TYLENOL 00:00: every 4 [place] #3) 300-30 00 (four) Medical mg tablet [...] [place] tablet 00 times Medical daily. Branch cephALEXin Yes 500mg Take 1 Cap Univers [...] % times Branch ophthalmic daily. drops cephALEXin 2013-0 Yes 500mg Take 1 Cap Univers (KEFLEX) 8-25 by mouth 4 ity o f 500 mg 00:00: (four) [place] capsule 00 times Medical daily. Branch HYDROcodone 2013-0 Yes 1{tbl} Take 1 Tab Univers -acetaminop 8-25 by mouth ity of [place] (NORCO 00:00: every 4 [place] 5) 5-325 mg 00 (four) Medica l tablet hours as Branch needed for Pain unrelieved by non-narcot ic analgesics . ibuprofen 2013-0 Yes 600mg Take 1 Tab U nivers (MOTRIN) 8-25 by mouth ity of 600 mg 00:00: every 6 [place] tablet 00 (six) Medical hours as Branch needed for Pain (scale 1-3) or Pain (scale 4-6). artificial 2013-0 Yes 2[drp] Place 2 Un cristo tears,hypro 8-25 Drops in ity of mellose, 00:00: [place] eyes [place] (ISOPTO-TEA 00 4 (four) Medi tobin RS) 0.5 % times Branch ophthalmic daily. drops cephALEXin 2013-0 Yes 500mg Take 1 Cap Univers (KEFLEX) 8-25 by mouth 4 ity o f 500 mg 00:00: (four) [place] capsule 00 times Medical daily. Branch HYDROcodone 0 Yes 1{tbl} Take 1 Tab Univers -acetaminop 8-25 by mouth ity of hen (NORCO 00:00: every 4 [place] 5) 5-325 mg 00 (four) Medica l tablet hours as Branch needed for Pain unrelieved by non-narcot ic analgesics . ibuprofen 2013-0 Yes 600mg Take 1 Tab U nivers (MOTRIN) 8-25 by mouth ity of 600 mg 00:00: every 6 [place] tablet 00 (six) Medical hours as Branch needed for Pain (scale 1-3) or Pain (scale 4-6). artificial 2014-0 Yes 2[drp] Place 2 Un cristo tears,hypro 8-25 Drops in ity of mellose, 00:00: both eyes [place] (ISOPTO-TEA 00 4 (four) Medi tobin RS) 0.5 % times Branch ophthalmic daily. drops Immunizations Ordered Filled Immunization Date Status Comments [facility] e Immunization Name Name Tdap 2020-08-01 Completed 00:00:00 Tdap 2020-08-01 Completed 00:00:00 Tdap 2020-08-01 Completed 00:00:00 Tdap 2020-08-01 Completed 00:00:00 SARS-COV-2 COVID-19 2020-07-06 Completed Unive rsity of PFIZER VACCINE 00:00:00 [facility] SARS-COV-2 COVID-19 2020-07-06 Completed Unive rsity of PFIZER VACCINE 00:00:00 [facility] Influenza, 2020-01-29 Completed seasonal, inj 00:00:00 Pneumococcal 2020-01-29 Completed conjugate P 00:00:00 Influenza, 2020-01-29 Completed seasonal, inj 00:00:00 Pneumococcal 2020-01-29 Completed conjugate P 00:00:00 Influenza, 2020-01-29 Completed seasonal, inj 00:00:00 Pneumococcal 2020-01-29 Completed conjugate P 00:00:00 Influenza, 2020-01-29 Completed seasonal, inj 00:00:00 Pneumococcal 2020-01-29 Completed conjugate P 00:00:00 Vital Signs Vital Name Observation Time Observation Value Comments Source Systolic blood 2022-01-11 19:10:00 149 mm[Hg] Univer sity of pressure [facility] Diastolic blood 2022-01-11 19:10:00 100 mm[Hg] Unive rsity of pressure [facility] Heart rate 2022-01-11 19:10:00 78 /min [facility] Body temperature 2022-01-11 19:10:00 36.11 [facility] Res[facility] rate 2022-01-11 19:10:00 19 /min [facility] Oxygen saturation in 2022-01-11 19:10:00 94 /min [facility] Arterial blood by [facility] Pulse oximetry [place] Body height 2022-01-11 17:41:00 188 cm [facility] Body weight 2022-01-11 17:41:00 74.844 kg [facility] BMI 2022-01-11 17:41:00 21.18 kg/m2 [facility] Systolic blood 2020-09-01 06:00:00 164 mm[Hg] Univer sity of pressure [place] [facility] Diastolic blood 2020-09-01 06:00:00 89 mm[Hg] Unive rsity of pressure [place] [facility] Heart rate 2020-09-01 06:00:00 62 /min Universi ty of [place] [facility] [place] Respiratory rate 2020-09-01 06:00:00 17 /min Univ ersity of [place] [facility] [place] Oxygen saturation in 2020-09-01 06:00:00 97 /min University of Arterial blood by [facility] Pulse oximetry Branch Body temperature 2020-09-01 04:13:00 36.06 Nyla Univ ersity of [place] [facility] [place] Body height 2020-09-01 02:01:00 185.4 cm Universi ty of [place] [facility] [place] Body weight 2020-09-01 02:01:00 72.576 kg Universi ty of [facility] BMI 2020-09-01 02:01:00 21.11 kg/m2 Universi ty of [place] [facility] Systolic blood 2019-04-13 19:00:00 123 mm[Hg] Univer sity of pressure [place] [facility] Diastolic blood 2019-04-13 19:00:00 70 mm[Hg] Unive rsity of pressure [place] [facility] [place] Heart rate 2019-04-13 19:00:00 81 /min Universi ty of [place] [facility] [place] Respiratory rate 2019-04-13 19:00:00 15 /min Univ ersity of [place] [facility] [place] Oxygen saturation in 2019-04-13 19:00:00 95 /min University of Arterial blood by [facility] Pulse oximetry Branch Body temperature 2019-04-13 15:48:00 36.61 Nyla Univ ersity of [place] [facility] Body weight 2019-04-13 15:48:00 72.576 kg Universi ty of [place] [facility] BMI 2019-04-13 15:48:00 20.00 kg/m2 [facility] [place] [facility] BP Systolic 2021-12-16 10:23:00 121 mm[Hg] BP [...] Clinician Source Performed CT ABDOMEN PELVIS W 2022-01-11 19:08:59 Valencia Arrington [facility] CONTRAST [facility] CT CERVICAL SPINE WO 2022-01-11 19:08:59 Murphy [facility] CONTRAST [facility] CT HEAD WO CONTRAST 2022-01-11 19:08:59 Murphy [facility] CT THORAX W CONTRAST 2022-01-11 19:08:59 [facility] XR HUMERUS 2 VW LEFT 2022-01-11 18:37:47 Murphy [facility] XR SHOULDER 2+ VW LEFT 2022-01-11 18:37:47 Valencia Arrington [facility] URINALYSIS 2022-01-11 18:29:00 Murphy [facility] LIPASE 2022-01-11 18:18:00 Murphy [facility] MAGNESIUM 2022-01-11 18:18:00 Murphy [facility] TROPONIN I 2022-01-11 18:18:00 Murphy [facility] COMP. METABOLIC PANEL 2022-01-11 18:18:00 Valencia Arrington [facility] ([id number]) Medical Branch CBC WITH DIFF 2022-01-11 18:18:00 Murphy [facility] RAPID INFLUENZA A/B 2022-01-11 18:18:00 Murphy [facility] COVID-19 (ID NOW RAPID 2022-01-11 18:18:00 Valencia Arrington [facility] TESTING) [facility] CONSENT/REFUSAL FOR 2022-01-11 17:38:37 Doctor Unassigned, No Un [facility] DIAGNOSIS AND TREATMENT Name Medical Branch CT ABDOMEN PELVIS W 2020-09-01 04:02:56 Taqueria Correa [facility] CONTRAST Medical Branch CT HEAD WO CONTRAST 2020-09-01 03:52:46 Taqueria Correa [facility] COVID-19 (ID NOW RAPID 2020-09-01 03:19:00 Taqueria Correa [facility] TESTING) Medical Branch CREATINE KINASE 2020-09-01 02:29:00 Taqueria Correa [facility] LIPASE 2020-09-01 02:29:00 Taqueria Correa [facility] MAGNESIUM 2020-09-01 02:29:00 Taqueria Correa [facility] TROPONIN I 2020-09-01 02:29:00 Taqueria Correa [facility] COMP. METABOLIC PANEL 2020-09-01 02:29:00 Taqueria Correa [facility] ([id number]) Medical Branch CBC WITH DIFF 2020-09-01 02:29:00 Taqueria Correa [facility] URINALYSIS 2020-09-01 02:23:00 Taqueria Correa [facility] XR CHEST 1 VW 2020-09-01 02:20:38 Taqueria Correa [facility] CT ABDOMEN PELVIS WO 2019-04-13 19:14:59 Josefa Soria [facility] Branch LIPASE 2019-04-13 17:45:00 Josefa Soria [facility] TROPONIN I 2019-04-13 17:45:00 Josefa Soria [facility] HEPATIC FUNCTION PANEL 2019-04-13 17:45:00 Josefa Soria [facility] ([id number]) (ALB,T.PRO,BILI Medical Branch T,BU/BC,ALT,AST,ALK PHOS) BASIC METABOLIC PANEL 2019-04-13 17:45:00 Josefa Soria [facility] (NA, K, CL, CO2, Medical Branch GLUCOSE, BUN, CREATININE, CA) XR CHEST 1 VW 2019-04-13 16:27:33 Josefa Soria [facility] CBC WITH DIFFERENTIAL 2019-04-13 16:18:00 Josefa Soria [facility] EKG-12 LEAD 2019-04-13 16:00:50 Josefa Soria [facility] Plan of Care Planned Activity Planned Date Details Comments Source Goal Plan of Care Note [code = 73584-4] Goal Plan of Care Note [code = 12467-5] Goal Plan of Care Note [code = 53394-8] Goal Plan of Care Note [code = 69829-7] Goal Plan of Care Note [code = 85347-4] Goal Plan of Care Note [code = 24947-5] Goal Plan of Care Note [code = 44413-5] Goal Plan of Care Note [code = 73889-6] Goal Plan of Care Note [code = 62962-6] Goal Plan of Care Note [code = 20081-2] Goal Plan of Care Note [code = 68405-1] Goal Plan of Care Note [code = 10352-4] Goal Plan of Care Note [code = 94866-7] Goal Plan of Care Note [code = 26994-5] Goal Plan of Care Note [code = 57179-1] Goal Plan of Care Note [code = 57944-8] Goal Plan of Care Note [code = 82518-0] Goal Plan of Care Note [code = 93104-9] Goal Plan of Care Note [code = 68996-4] Goal Plan of Care Note [code = 57648-4] Goal Plan of Care Note [code = 07275-3] Goal Plan of Care Note [code = 15777-0] Goal Plan of Care Note [code = 66739-5] Goal Plan of Care Note [code = 76331-2] Goal Plan of Care Note [code = 72172-7] Goal Plan of Care Note [code = 04205-2] Goal Plan of Care Note [code = 53461-7] Goal Plan of Care Note [code = 18693-0] Goal Plan of Care Note [code = 48726-3] Goal Plan of Care Note [code = 70583-5] Goal Plan of Care Note [code = 02924-0] Goal Plan of Care Note [code = 46316-4] Goal Plan of Care Note [code = 63512-4] Goal Plan of Care Note [code = 43675-5] Goal Plan of Care Note [code = 13619-5] Goal Plan of Care Note [code = 85925-5] Goal Plan of Care Note [code = 49204-3] Goal Plan of Care Note [code = 67239-1] Goal Plan of Care Note [code = 71328-6] Goal Plan of Care Note [code = 49769-3] Goal Plan of Care Note [code = 94270-9] Goal Plan of Care Note [code = 08349-1] Goal Plan of Care Note [code = 78942-9] Goal Plan of Care Note [code = 94487-1] Goal Plan of Care Note [code = 72260-7] Goal Plan of Care Note [code = 51809-4] Goal Plan of Care Note [code = 78272-7] Goal Plan of Care Note [code = 29224-9] Goal Plan of Care Note [code = 84093-4] Goal Plan of Care Note [code = 43466-6] Goal Plan of Care Note [code = 79072-3] Goal Plan of Care Note [code = 75829-8] Goal Plan of Care Note [code = 12679-6] Goal Plan of Care Note [code = 54208-0] Goal Plan of Care Note [code = 08907-8] Goal Plan of Care Note [code = 98878-7] Goal Plan of Care Note [code = 66185-1] Goal Plan of Care Note [code = 91784-9] Goal Plan of Care Note [code = 49538-9] Goal Plan of Care Note [code = 80895-1] Goal Plan of Care Note [code = 69687-7] Goal Plan of Care Note [code = 08157-2] Goal Plan of Care Note [code = 26224-8] Goal Plan of Care Note [code = 84577-3] Goal Plan of Care Note [code = 60209-6] Goal Plan of Care Note [code = 55676-4] Goal Plan of Care Note [code = 70113-6] Goal Plan of Care Note [code = 20797-4] Goal Plan of Care Note [code = 23734-7] Goal Plan of Care Note [code = 00932-9] Goal Plan of Care Note [code = 82450-5] Goal Plan of Care Note [code = 74078-1] Goal Plan of Care Note [code = 13090-3] Goal Plan of Care Note [code = 29679-4] Goal Plan of Care Note [code = 97981-4] Goal Plan of Care Note [code = 56929-3] Goal Plan of Care Note [code = 41913-6] Goal Plan of Care Note [code = 33438-1] Goal Plan of Care Note [code = 17136-9] Goal Plan of Care Note [code = 35067-7] Goal Plan of Care Note [code = 51022-2] Goal Plan of Care Note [code = 11080-8] Goal Plan of Care Note [code = 93294-8] Goal Plan of Care Note [code = 96206-5] Goal Plan of Care Note [code = 84851-1] Goal Plan of Care Note [code = 84017-5] Goal Plan of Care Note [code = 83523-6] Goal Plan of Care Note [code = 03528-7] Goal Plan of Care Note [code = 72172-5] Goal Plan of Care Note [code = 46141-2] Goal Plan of Care Note [code = 50535-2] Goal Plan of Care Note [code = 56136-2] Goal Plan of Care Note [code = 73211-0] Goal Plan of Care Note [code = 27945-6] Goal Plan of Care Note [code = 35666-7] Goal Plan of Care Note [code = 99402-6] Goal Plan of Care Note [code = 82870-8] Goal Plan of Care Note [code = 10626-9] Goal Plan of Care Note [code = 56670-5] Goal Plan of Care Note [code = 11314-6] Goal Plan of Care Note [code = 28339-3] Goal Plan of Care Note [code = 63104-2] Goal Plan of Care Note [code = 26354-6] Goal Plan of Care Note [code = 83904-6] Goal Plan of Care Note [code = 12182-5] Goal Plan of Care Note [code = 18357-6] Goal Plan of Care Note [code = 26680-4] Goal Plan of Care Note [code = 20049-7] Goal Plan of Care Note [code = 13558-2] Goal Plan of Care Note [code = 39614-2] Goal Plan of Care Note [code = 66339-3] Goal Plan of Care Note [code = 36925-9] Goal Plan of Care Note [code = 34093-5] Goal Plan of Care Note [code = 93278-9] Goal Plan of Care Note [code = 67673-4] Goal Plan of Care Note [code = 09675-6] Goal Plan of Care Note [code = 50182-8] Goal Plan of Care Note [code = 66739-1] Goal Plan of Care Note [code = 30060-5] Goal Plan of Care Note [code = 34052-9] Goal Plan of Care Note [code = 71326-6] Goal Plan of Care Note [code = 64688-1] Goal Plan of Care Note [code = 17935-9] Goal Plan of Care Note [code = 30676-6] Goal Plan of Care Note [code = 21242-1] Goal Plan of Care Note [code = 09212-5] Goal Plan of Care Note [code = 57697-0] Goal Plan of Care Note [code = 82192-7] Goal Plan of Care Note [code = 70437-9] Goal Plan of Care Note [code = 86258-6] Goal Plan of Care Note [code = 15740-0] Goal Plan of Care Note [code = 36106-8] Goal Plan of Care Note [code = 53820-0] Goal Plan of Care Note [code = 35908-3] Goal Plan of Care Note [code = 01423-3] Goal Plan of Care Note [code = 98556-9] Encounters Start End Encounter Admission Attending Care Care Encounter Source Date/Time Date/Time Type Type Clinicians Facility Department ID 2022-01-11 2022-01-11 Emergency X MURPHY [facility] ERT [id number] Univers 12:42:00 16:12:00 VALENCIA moreno [facility] 2022-01-11 2022-01-11 Emergency Murphy [facility] [id number] Univers 12:42:00 16:12:00 Valencia MOHAN [id number] i Li [id number] [facility] [id number] [place] [id number] Branch 2021-12-16 2021-12-16 Outpatient [facility] [id number] Ken 10:16:19 10:16:19 1004 F Franco 2021-12-16 2021-12-16 Outpatient [id number] 00:00:00 00:00:00 Visit [id number] 7d3-96s0-g -adb0-daa db0-daaab5 [id number] 2021-11-04 2021-11-04 Outpatient [id number] 00:00:00 00:00:00 Visit 32y9-33p4 [id number] -9bfd-45c [id number] 2021-10-17 2021-10-17 Outpatient [id number] 00:00:00 00:00:00 Visit 36af-43ea 6af-43ea-9 -6z11-9w5 [id number] 2021-09-24 2021-09-24 Outpatient [id number] [id number] 00:00:00 00:00:00 Visit ebd4-4120 bd4-4120-8 -859f-c80 [id number] [id number] cde6a8 2020-12-04 2020-12-04 Outpatient Young_J [facility] [id number] [place] 02:27:00 02:27:00 0922 Medical Group 2020-12-03 2020-12-03 Outpatient Young_J [facility] [id number] [place] 02:48:00 02:48:00 0921 Medical Group 2020-08-31 2020-09-01 Emergency [facility] [id number] Univers 20:50:00 03:00:00 Taqueria Mohan [id number] [facility] 4.2.7.2.686 [facility] [phone] [facility] 084 Branch 2020-08-31 2020-08-31 Emergency [facility] [id number] Univers 20:50:00 20:50:00 TAQUERIA castillochhaya [facility] 2019-04-13 2019-04-13 Emergency [facility] [id number] Univers 09:45:35 14:11:00 Josefa Mohan 350.1.13.10 [facility] 4.2.7.2.686 [facility] [phone] [place] [id number] Branch 2019-04-13 2019-04-13 Emergency X [facility] ERT [id number] Univers 09:45:35 14:11:00 [facility] Test Description Test Time Test Comments Results Result Comments Source VITAMIN D, 25 OH 2021-09-26 03:55:37 Test Item Value Reference Range Interpretation Comme nts VITAMIN D, 25 OH (test code 13 NG/ML SEE BELOW L NOTE: 25-HYDROXYVITAMIN D ASSAY = 4958) INCLUDES 25-HYD ROXYVITAMIN D2 AND D3. METHODOLOGY IS CHEMILUMINESCENT IMMUNOASSAY. * INTERPRETIVE RANGES PED IATRIC (<17 YEARS) . [...] code = 4958) 13 NG/ML TSH, THIRD [id number] 06:38:23 Test Item Value Reference Range Interpretation Comments TSH, THIRD GENERATION (test code 2.840 UIU/ML 0.400-4.100 = 2821) CBC W/AUTO DIFF WITH [id number] 04:49:57 Test Item Value Reference Range Interpretation [...] RBCS 0.00 K/UL 0.00-0.11 (test code = 88939) COMPREHENSIVE METABOLIC [id number] 04:02:36 Test Item Value Reference Range Interpretation Comments GLUCOSE (test code = 125 MG/DL 70-99 H 2216) BUN (test code = 20 MG/DL 8-23 2207) CREATININE (test 1.30 MG/DL 0.80-1.40 code = 2213) eGFR (2020 CKD-EPI) 54 >60 L (test code = 66797) ML/MIN/1.73 CALC BUN/CREAT (test 15 RATIO 6-28 code = 2235) SODIUM (test code = 137 MEQ/L 739-211 0812) POTASSIUM (test code 4.5 MEQ/L 3.5-5.4 = 2227) CHLORIDE (test code 103 MEQ/L 95-107 = 2214) CARBON DIOXIDE (test 19 MEQ/L 19-31 code = 2205) CALCIUM (test code = 9.5 MG/DL 8.5-10.5 2208) PROTEIN, TOTAL (test 6.9 G/DL 6.1-8.3 code = 222) ALBUMIN (test code = 3.9 G/DL 3.5-5.2 2200) CALC GLOBULIN (test 3.0 G/DL 1.9-3.7 code = 2240) CALC A/G RATIO (test 1.3 RATIO 1.0-2.6 code = 2234) BILIRUBIN, TOTAL 1.3 MG/DL See_Comment H [Automated message] (test code = 220) The syste m which generated this result transmitted ref erence range: <=1.2. T he reference range was not used to int erpret this result as normal/abnormal . ALKALINE PHOSPHATASE 89 U/L 40-125 (test code = 2203) AST (test code = 25 U/L 9-50 2218) ALT (test code = 21 U/L 5-50 UNLESS OT HERWISE 2219) INDICATED, ALL TESTING PERFORM ED ATCLINICAL PATH [facility], [facility]. [address] [place] [address] [facility] DIRECTOR: KERA ALBARADO M.D. CLIA NUMBER [id number] CAP ACCREDITATION N O. [id number] TSH, THIRD GENERATION [ADDED]2021-09-25 00:00:00 Test Item [...] NUCLEATED RBCS (test code = 0.00 K/UL 73497) CBC W/AUTO DIFF WITH PLATELETS [ADDED]2021-09-25 00:00:00 [...] NUCLEATED RBCS (test code = 0.00 K/UL 70782) CBC W/AUTO DIFF WITH PLATELETS [ADDED]2021-09-25 00:00:00 [...] NUCLEATED RBCS (test code = 0.00 K/UL 43522) COMPREHENSIVE METABOLIC PANEL [ADDED]2021-09-25 00:00:00 Test Item Value Reference Range Interpretation Comments GLUCOSE (test code = 2217) 125 MG/DL BUN (test code = 2208) 20 MG/DL CREATININE (test code = 2214) 1.30 MG/DL eGFR (2020 CKD-EPI) (test code 54 ML/MIN/1.73 = 43253) CALC BUN/CREAT (test code = 15 RATIO [...] (2020 CKD-EPI) (test code 54 ML/MIN/1.73 = 14558) CALC BUN/CREAT (test code = 15 RATIO [...] NUCLEATED RBCS (test code = 0.00 K/UL 09771) CBC W/AUTO DIFF WITH PLATELETS [ADDED]2021-09-25 00:00:00 [...] NUCLEATED RBCS (test code = 0.00 K/UL 62784) CBC W/AUTO DIFF WITH PLATELETS [ADDED]2021-09-25 00:00:00 [...] NUCLEATED RBCS (test code = 0.00 K/UL 08639) COMPREHENSIVE METABOLIC PANEL [ADDED]2021-09-25 00:00:00 Test Item Value Reference Range Interpretation Comments GLUCOSE (test code = 2217) 125 MG/DL BUN (test code = 2208) 20 MG/DL CREATININE (test code = 2214) 1.30 MG/DL eGFR (2020 CKD-EPI) (test code 54 ML/MIN/1.73 = 55830) CALC BUN/CREAT (test code = 15 RATIO [...] (2020 CKD-EPI) (test code 54 ML/MIN/1.73 = 41069) CALC BUN/CREAT (test code = 15 RATIO 2235) SODIUM (test code = 2231) 137 MEQ/L POTASSIUM (test code = 2228) 4.5 MEQ/L CHLORIDE (test code = 2215) 103 MEQ/L CARBON DIOXIDE (test code = 19 MEQ/L 6) CALCIUM (test code = 2209) 9.5 MG/DL [...] NUCLEATED RBCS (test code = 0.00 K/UL 21524) CBC W/AUTO DIFF WITH PLATELETS [ADDED]2021-09-25 00:00:00 [...] NUCLEATED RBCS (test code = 0.00 K/UL 86310) CBC W/AUTO DIFF WITH PLATELETS [ADDED]2021-09-25 00:00:00 [...] NUCLEATED RBCS (test code = 0.00 K/UL 13150) COMPREHENSIVE METABOLIC PANEL [ADDED]2021-09-25 00:00:00 Test Item Value Reference Range Interpretation Comments GLUCOSE (test code = 2217) 125 MG/DL BUN (test code = 2208) 20 MG/DL CREATININE (test code = 2214) 1.30 MG/DL eGFR (2020 CKD-EPI) (test code 54 ML/MIN/1.73 = 78103) CALC BUN/CREAT (test code = 15 RATIO [...] (2020 CKD-EPI) (test code 54 ML/MIN/1.73 = 80064) CALC BUN/CREAT (test code = 15 RATIO 2234) SODIUM (test code = 2231) 137 MEQ/L POTASSIUM (test code = 2228) 4.5 MEQ/L CHLORIDE (test code = 2215) 103 MEQ/L CARBON DIOXIDE (test code = 19 MEQ/L 2205) CALCIUM (test code = 2209) 9.5 MG/DL PROTEIN, TOTAL (test code = 6.9 G/DL 2228) ALBUMIN (test code = 220) 3.9 G/DL CALC GLOBULIN (test code = 3.0 G/DL 2239) CALC A/G RATIO (test code = 1.3 RATIO 2233) BILIRUBIN, TOTAL (test code = 1.3 MG/DL 2206) ALKALINE PHOSPHATASE (test 89 U/L code = 220) AST (test code = 2218) 25 U/L ALT (test code = 2219) 21 U/L VITAMIN D, 25 [id number] 00:00:00 Test Item Value Reference Range Interpretation Comments VITAMIN D, 25 OH (test code = 4958) 18 NG/ML VITAMIN D, 25 [id number] 00:00:00 Test Item Value Reference Range Interpretation Comments VITAMIN D, 25 OH (test code = 4958) 18 NG/ML VITAMIN D, 25 [id number] 00:00:00 Test Item Value Reference Range Interpretation Comments VITAMIN D, 25 OH (test code = 4958) 18 NG/ML VITAMIN D, 25 [id number] 00:00:00 Test Item Value Reference Range Interpretation Comments VITAMIN D, 25 OH (test code = 4958) 18 NG/ML VITAMIN D, 25 [id number] 00:00:00 Test Item Value Reference Range Interpretation Comments VITAMIN D, 25 OH (test code = 4958) 18 NG/ML VITAMIN D, 25 [id number] 00:00:00 Test Item Value Reference Range Interpretation Comments VITAMIN D, 25 OH (test code = 4958) 18 NG/ML VITAMIN D, 25 [id number] 00:00:00 Test Item Value Reference Range Interpretation Comments VITAMIN D, 25 OH (test code = 4958) 18 NG/ML [id number] 05:18:25 Test Item Value Reference Range Interpretation Comments MAGNESIUM (test code = 9060380153) 2.0 mg/dL 1.7-2.4 Lab Interpretation (test code = Normal 83418-6) [facility] [id number] 05:18:05 Test Item Value Reference Range Interpretation Comments CK (test code = 1521846671) 102 U/L 33-194 Lab Interpretation (test code = Normal 19630-9) [facility] (ID NOW RAPID TESTING)2020-09-01 04:00:42 Test Item Value Reference Range Interpretation Comments SARS-CoV-2 Rapid ID NOW Not Detected Not Detected (test code = 55265-4) JOAN (test code = JOAN) ID NOW COVID-19 Assay is an isothermal nucleic acid amplification test intended for the qualitative detection of nucleic acid from SARS-CoV-2 viral RNA in nasopharyngeal ([employer]) specimens. It is used under Emergency Use [...] indicated. Lab Interpretation Normal (test code = 06354-9) [facility] [id number] 03:04:17 Test Item Value Reference Range Interpretation Comments TROPONIN I (test 0.005 ng/mL See_Comment [Automated code = 9108452818) message] The system which generated this result [...] ? Lab Interpretation Normal (test code = 67206-2) [facility]IS2021-06-20 02:57:28 Test Item Value Reference Range Interpretation Comments APPEARANCE (test code = Clear Clear 5913430880) COLOR (test code = Straw Yellow A 4710665572) PH (test code = 4.8-8.0 3218771130) SP GRAVITY (test code = 1.003-1.030 0248463414) GLU U QUAL (test code = Normal Normal 8197654967) BLOOD (test code = Negative Negative 3091973151) KETONES (test code = Negative Negative 8496589879) PROTEIN (test code = Negative Negative 2887-8) UROBILIN (test code = Normal Normal 4212999182) BILIRUBIN (test code = Negative Negative 2291507079) NITRITE (test code = Negative Negative 2114789155) LEUK MADHU (test code = Negative Negative 6401088143) RBC/HPF (test code = See_Comment [Autom ated message] 0358813015) The system [employer] generated this result transmitted ref erence range: 0 - 3 HP F. The reference range was not used to int erpret this result as normal/abnormal . WBC/HPF (test code = See_Comment [Autom ated message] 8477144766) The system [employer] generated this result transmitted ref erence range: 0 - 5 HP F. The reference range was not used to int erpret this result as normal/abnormal . BACTERIA (test code = Few Negative A 2890908590) Lab Interpretation (test Abnormal code = 64194-5) [facility] Center[facility]. METABOLIC PANEL (57437)2020-09-01 02:52:37 Test Item Value Reference Range Interpretation Comments NA (test code = 137 mmol/L 135-145 3294638662) K (test code = 4.8 mmol/L 3.5-5.0 2456230380) CL (test code = 104 mmol/L 98-108 6396239895) CO2 TOTAL (test code = 27 mmol/L 23-31 5309012440) AGAP (test code = 2-16 6963295331) BUN (test code = 24 mg/dL 7-23 H 9606386766) GLUCOSE (test code = 83 mg/dL 70-110 5943669342) CREATININE (test code = 1.24 mg/dL 0.60-1.25 4289255257) TOTAL BILI (test code = 0.4 mg/dL 0.1-1.7 3063784378) CALCIUM (test code = 9.8 mg/dL 8.6-10.6 3408854623) T PROTEIN (test code = 7.4 g/dL 6.3-8.2 9021215152) ALBUMIN (test code = 3.8 g/dL 3.5-5.0 3845757233) ALK PHOS (test code = 107 U/L 34-122 4228929673) ALTv (test code = 30 U/L 5-50 1742-6) AST(SGOT) (test code = 36 U/L 13-40 0001817648) eGFR (test code = mL/min/1.73m2 1541379379) JOAN (test code = JOAN) Association of [...] tests). Lab Interpretation Abnormal (test code = 30090-5) [facility] CenterLIPASE, [id number] 02:52:17 Test Item Value Reference Range Interpretation Comments LIPASE (test code = 8003939615) 174 U/L 0-220 Lab Interpretation (test code = Normal 00765-8) [facility] CenterCB WITH [id number] 02:40:45 Test Item Value Reference Range Interpretation Comments WBC (test code = See_Comment [Automated 1490-2) message] The sy stem which generated this result transmitted reference range : 4.20 - 10.70 10*3/?L. The reference range was not used to interpret this result as normal/abnormal . RBC (test code = See_Comment [Automated 653-8) message] The sy stem which generated this [...] RDW-SD (test code = 45.1 fL 38.5-51.6 94139-0) RDW-CV (test code = 16.2 % 12.1-15.4 H 788-0) PLT (test code = See_Comment [Automated 777-3) message] The sy stem which generated this result transmitted reference range : 150 - 328 10*3/ ?L. The reference r klarissa was not used to interpret this result as normal/abnormal . MPV (test code = 8.9 fL 9.8-13.0 L 36947-9) NRBC/100 WBC (test See_Comment [Automat ed code = 0714835836) message] The system which generated this result transmitted reference range : 0.0 - 10.0 /100 WBCs. The refer ence range was not u sed to interpret th is result as normal/abnormal . NRBC x10^3 (test code <0.01 See_Comment [Auto mated = 6045537336) message] The s ystem which generated this result transmitted reference range : 10*3/?L. The reference range was not used to interpret this result as normal/abnormal . GRAN MAT (NEUT) % 59.5 % (test code = 770-8) IMM GRAN % (test code 1.00 % = 8471029784) LYMPH % (test code = 25.2 % 736-9) MONO % (test code = 11.9 % 5905-5) EOS % (test code = 2.1 % 713-8) BASO % (test code = 0.3 % 706-2) GRAN MAT x10^3(ANC) 3.63 10*3/uL 1.99-6.95 (test code = 3428933105) IMM GRAN x10^3 (test 0.06 10*3/uL 0.00-0.06 code = 0461636636) LYMPH x10^3 (test code 1.54 10*3/uL 1.09-3.23 = 731-0) MONO x10^3 (test code 0.73 10*3/uL 0.36-1.02 = 742-7) EOS x10^3 (test code = 0.13 10*3/uL 0.06-0.53 711-2) BASO x10^3 (test code <0.03 0.01-0.09 = 704-7) Lab Interpretation Abnormal (test code = 23660-5) [facility] Center[facility] [id number] 00:00:00 Test Item Value Reference Range Interpretation Comments VITAMIN B-12 (test code = 2840) 376 PG/ML VITAMIN [id number] 00:00:00 Test Item Value Reference Range Interpretation Comments VITAMIN B-12 (test code = 2840) 376 PG/ML VITAMIN [id number] 00:00:00 Test Item Value Reference Range Interpretation Comments VITAMIN B-12 (test code = 2840) 376 PG/ML VITAMIN [id number] 00:00:00 Test Item Value Reference Range Interpretation Comments VITAMIN B-12 (test code = 2840) 376 PG/ML VITAMIN [id number] 00:00:00 Test Item Value Reference Range Interpretation Comments VITAMIN B-12 (test code = 2840) 376 PG/ML VITAMIN [id number] 00:00:00 Test Item Value Reference Range Interpretation Comments VITAMIN B-12 (test code = 2840) 376 PG/ML VITAMIN [id number] 00:00:00 Test Item Value Reference Range Interpretation Comments VITAMIN B-12 (test code = 2840) 376 PG/ML VITAMIN [id number] 00:00:00 Test Item Value Reference Range Interpretation Comments VITAMIN B-12 (test code = 2840) 376 PG/ML VITAMIN [id number] 00:00:00 Test Item Value Reference Range Interpretation Comments VITAMIN B-12 (test code = 2840) 376 PG/ML VITAMIN [id number] 00:00:00 Test Item Value Reference Range Interpretation Comments VITAMIN B-12 (test code = 2840) 376 PG/ML VITAMIN [id number] 00:00:00 Test Item Value Reference Range Interpretation Comments VITAMIN B-12 (test code = 2840) 376 PG/ML VITAMIN D, 25 [id number] 00:00:00 Test Item Value Reference Range Interpretation Comments VITAMIN D, 25 OH (test code = 4958) 19 NG/ML VITAMIN D, 25 [id number] 00:00:00 Test Item Value Reference Range Interpretation Comments VITAMIN D, 25 OH (test code = 4958) 19 NG/ML VITAMIN D, 25 [id number] 00:00:00 Test Item Value Reference Range Interpretation Comments VITAMIN D, 25 OH (test code = 4958) 19 NG/ML VITAMIN D, 25 [id number] 00:00:00 Test Item Value Reference Range Interpretation Comments VITAMIN D, 25 OH (test code = 4958) 19 NG/ML VITAMIN D, 25 [id number] 00:00:00 Test Item Value Reference Range Interpretation Comments VITAMIN D, 25 OH (test code = 4958) 19 NG/ML VITAMIN D, 25 [id number] 00:00:00 Test Item Value Reference Range Interpretation Comments VITAMIN D, 25 OH (test code = 4958) 19 NG/ML VITAMIN D, 25 [id number] 00:00:00 Test Item Value Reference Range Interpretation Comments VITAMIN D, 25 OH (test code = 4958) 19 NG/ML COMPREHENSIVE METABOLIC [id number] 00:00:00 Test Item Value Reference Range Interpretation Comments GLUCOSE (test code = 2217) 107 MG/DL BUN (test code = 2208) 19 MG/DL CREATININE (test code = 2214) 1.12 MG/DL eGFR AMER. (test code 70 ML/MIN/1.73 = 65963) eGFR NON- AMER. (test 60 ML/MIN/1.73 code = 77069) CALC BUN/CREAT (test code = 17 RATIO 2235) SODIUM (test code = 2231) 139 MEQ/L POTASSIUM (test code = 2228) 4.2 MEQ/L CHLORIDE (test code = 2215) 101 MEQ/L CARBON DIOXIDE (test code = 27 MEQ/L 6) CALCIUM (test code = 2209) 9.7 MG/DL [...] code = 2219) 27 U/L COMPREHENSIVE METABOLIC [id number] 00:00:00 Test Item Value Reference Range Interpretation Comments GLUCOSE (test code = 2217) 107 MG/DL BUN (test code = 2208) 19 MG/DL CREATININE (test code = 2214) 1.12 MG/DL eGFR AMER. (test code 70 ML/MIN/1.73 = 26495) eGFR NON- AMER. (test 60 ML/MIN/1.73 code = 42375) CALC BUN/CREAT (test code = 17 RATIO 2235) SODIUM (test code = 2231) 139 MEQ/L POTASSIUM (test code = 2228) 4.2 MEQ/L CHLORIDE (test code = 2215) 101 MEQ/L CARBON DIOXIDE (test code = 27 MEQ/L 2206) CALCIUM (test code = 2209) 9.7 MG/DL PROTEIN, TOTAL (test code = 7.2 G/DL 222) ALBUMIN (test code = 2201) 4.1 G/DL CALC GLOBULIN (test code = 3.1 G/DL 2240) CALC A/G RATIO (test code = 1.3 RATIO 2234) BILIRUBIN, TOTAL (test code = 0.5 MG/DL 2206) ALKALINE PHOSPHATASE (test 96 U/L code = 2204) AST (test code = 2218) 31 U/L ALT (test code = 2219) 27 U/L CBC W/AUTO [id number] 00:00:00 Test Item Value Reference Range Interpretation [...] code = 1015) 273 K/UL CBC W/AUTO [id number] 00:00:00 Test Item Value Reference Range Interpretation [...] code = 1015) 273 K/UL CBC W/AUTO [id number] 00:00:00 Test Item Value Reference Range Interpretation [...] COUNT (test code = 1015) 273 K/UL [id number] 00:00:00 Test Item Value Reference Range Interpretation Comments TSH, THIRD GENERATION (test code 4.320 UIU/ML = 2821) [id number] 00:00:00 Test Item Value Reference Range Interpretation Comments TSH, THIRD GENERATION (test code 4.320 UIU/ML = 2821) [id number] 00:00:00 Test Item Value Reference Range Interpretation Comments TSH, THIRD GENERATION (test code 4.320 UIU/ML = 2821) COMPREHENSIVE METABOLIC [id number] 00:00:00 Test Item Value Reference Range Interpretation Comments GLUCOSE (test code = 2217) 107 MG/DL BUN (test code = 2208) 19 MG/DL CREATININE (test code = 2214) 1.12 MG/DL eGFR AMER. (test code 70 ML/MIN/1.73 = 11580) eGFR NON- AMER. (test 60 ML/MIN/1.73 code = 98122) CALC BUN/CREAT (test code = 17 RATIO [...] code = 2219) 27 U/L COMPREHENSIVE METABOLIC [id number] 00:00:00 Test Item Value Reference Range Interpretation Comments GLUCOSE (test code = 2217) 107 MG/DL BUN (test code = 2208) 19 MG/DL CREATININE (test code = 2214) 1.12 MG/DL eGFR AMER. (test code 70 ML/MIN/1.73 = 15582) eGFR NON- AMER. (test 60 ML/MIN/1.73 code = 73737) CALC BUN/CREAT (test code = 17 RATIO [...] code = 2219) 27 U/L CBC W/AUTO [id number] 00:00:00 Test Item Value Reference Range Interpretation [...] code = 1015) 273 K/UL CBC W/AUTO [id number] 00:00:00 Test Item Value Reference Range Interpretation [...] code = 1015) 273 K/UL CBC W/AUTO [id number] 00:00:00 Test Item Value Reference Range Interpretation [...] COUNT (test code = 1015) 273 K/UL [id number] 00:00:00 Test Item Value Reference Range Interpretation Comments TSH, THIRD GENERATION (test code 4.320 UIU/ML = 2821) [id number] 00:00:00 Test Item Value Reference Range Interpretation Comments TSH, THIRD GENERATION (test code 4.320 UIU/ML = 2821) [id number] 00:00:00 Test Item Value Reference Range Interpretation Comments TSH, THIRD GENERATION (test code 4.320 UIU/ML = 2821) COMPREHENSIVE METABOLIC [id number] 00:00:00 Test Item Value Reference Range Interpretation Comments GLUCOSE (test code = 2217) 107 MG/DL BUN (test code = 2208) 19 MG/DL CREATININE (test code = 2214) 1.12 MG/DL eGFR AMER. (test code 70 ML/MIN/1.73 = 48076) eGFR NON- AMER. (test 60 ML/MIN/1.73 code = 07798) CALC BUN/CREAT (test code = 17 RATIO [...] code = 2219) 27 U/L COMPREHENSIVE METABOLIC [id number] 00:00:00 Test Item Value Reference Range Interpretation Comments GLUCOSE (test code = 2217) 107 MG/DL BUN (test code = 2208) 19 MG/DL CREATININE (test code = 2214) 1.12 MG/DL eGFR AMER. (test code 70 ML/MIN/1.73 = 89634) eGFR NON- AMER. (test 60 ML/MIN/1.73 code = 81868) CALC BUN/CREAT (test code = 17 RATIO [...] code = 2219) 27 U/L CBC W/AUTO [id number] 00:00:00 Test Item Value Reference Range Interpretation [...] code = 1015) 273 K/UL CBC W/AUTO [id number] 00:00:00 Test Item Value Reference Range Interpretation [...] code = 1015) 273 K/UL CBC W/AUTO [id number] 00:00:00 Test Item Value Reference Range Interpretation [...] COUNT (test code = 1015) 273 K/UL [id number] 00:00:00 Test Item Value Reference Range Interpretation Comments TSH, THIRD GENERATION (test code 4.320 UIU/ML = 2821) [id number] 00:00:00 Test Item Value Reference Range Interpretation Comments TSH, THIRD GENERATION (test code 4.320 UIU/ML = 2821) [id number] 00:00:00 Test Item Value Reference Range Interpretation Comments TSH, THIRD GENERATION (test code 4.320 UIU/ML = 2821) COMPREHENSIVE METABOLIC [id number] 00:00:00 Test Item Value Reference Range Interpretation Comments GLUCOSE (test code = 2217) 107 MG/DL BUN (test code = 2208) 19 MG/DL CREATININE (test code = 2214) 1.12 MG/DL eGFR AMER. (test code 70 ML/MIN/1.73 = 54158) eGFR NON- AMER. (test 60 ML/MIN/1.73 code = 33505) CALC BUN/CREAT (test code = 17 RATIO [...] code = 2219) 27 U/L CBC W/AUTO [id number] 00:00:00 Test Item Value Reference Range Interpretation [...] code = 1015) 273 K/UL CBC W/AUTO [id number] 00:00:00 Test Item Value Reference Range Interpretation [...] COUNT (test code = 1015) 273 K/UL [id number] 00:00:00 Test Item Value Reference Range Interpretation Comments TSH, THIRD GENERATION (test code 4.320 UIU/ML = 2821) [id number] 00:00:00 Test Item Value Reference Range Interpretation Comments TSH, THIRD GENERATION (test code 4.320 UIU/ML = 2821) CBC W/AUTO [id number] 00:00:00 Test Item Value Reference Range Interpretation [...] code = 1015) 368 K/UL CBC W/AUTO [id number] 00:00:00 Test Item Value Reference Range Interpretation [...] code = 1015) 368 K/UL CBC W/AUTO [id number] 00:00:00 Test Item Value Reference Range Interpretation [...] code = 1015) 368 K/UL CBC W/AUTO [id number] 00:00:00 Test Item Value Reference Range Interpretation [...] code = 1015) 368 K/UL CBC W/AUTO [id number] 00:00:00 Test Item Value Reference Range Interpretation [...] code = 1015) 368 K/UL CBC W/AUTO [id number] 00:00:00 Test Item Value Reference Range Interpretation [...] code = 1015) 368 K/UL CBC W/AUTO [id number] 00:00:00 Test Item Value Reference Range Interpretation [...] code = 1015) 368 K/UL CBC W/AUTO [id number] 00:00:00 Test Item Value Reference Range Interpretation [...] code = 1015) 368 K/UL CBC W/AUTO [id number] 00:00:00 Test Item Value Reference Range Interpretation [...] code = 1015) 368 K/UL CBC W/AUTO [id number] 00:00:00 Test Item Value Reference Range Interpretation [...] code = 1015) 368 K/UL CBC W/AUTO [id number] 00:00:00 Test Item Value Reference Range Interpretation [...] 1015) 368 K/UL CT ABDOMEN PELVIS WO [id number] 19:21:37CT Abdomen and Pelvis without contrast. CLINICAL [...] by contrast enhanced CT scan and/or ultrasound. [facility], Radiant Results Inft User - 04/13/2019 [...] furtherevaluated by contrast enhanced CT scan and/or ultrasound.[facility] [id number] 18:35:00 Test Item Value Reference Range Interpretation Comments TROPONIN I (test 0.015 ng/mL See_Comment [Automated code = 6689314525) message] The system which generated this result [...] ? Lab Interpretation Normal (test code = 45565-8) [facility] (ALB, T.PRO, BILI T, BU/BC, ALT, AST, ALK PHOS)2019-04-13 18:28:00 Test Item Value Reference Range Interpretation Comments TOTAL BILI (test code = 5036120924) 1.0 mg/dL 0.1-1.1 BILI UNCON (test code = 5378338787) 0.8 mg/dL 0.1-1.1 BILI CONJ (test code = 9847349432) 0.0 mg/dL 0-0.3 T PROTEIN (test code = 5423278592) 7.6 g/dL 6.3-8.2 ALBUMIN (test code = 0527130088) 3.9 g/dL 3.5-5 ALK PHOS (test code = 7631296697) 89 U/L 34-122 ALTv (test code = 1742-6) 22 U/L 5-50 AST(SGOT) (test code = 5229540298) 49 U/L 13-40 H Lab Interpretation (test code = Abnormal 99772-8) [facility] (NA, K, CL, CO2, GLUCOSE, BUN, CREATININE, CA)2019-04-13 18:28:00 Test Item Value Reference Range Interpretation Comments NA (test code = 130 mmol/L 135-145 L 5422618826) K (test code = 4.9 mmol/L 3.5-5 7633846101) CL (test code = 97 mmol/L 98-108 L 2828202670) CO2 TOTAL (test code = 21 mmol/L 23-31 L 4360229792) AGAP (test code = 2-16 3568580333) BUN (test code = 31 mg/dL 7-23 H 0798444474) GLUCOSE (test code = 89 mg/dL 70-110 2310939281) CREATININE (test code = 1.39 mg/dL 0.6-1.25 H 4218215075) CALCIUM (test code = 8.9 mg/dL 8.6-10.6 9833989249) eGFR Calculation mL/min/1.73m2 (Non-) (test code = [id number]) eGFR Calculation mL/min/1.73m2 () (test code = 1031239873) JOAN (test code = JOAN) Association of [...] tests). Lab Interpretation Abnormal (test code = 46542-7) [id number] 18:28:00 Test Item Value Reference Range Interpretation Comments LIPASE (test code = 8373548765) 97 U/L 0-220 Lab Interpretation (test code = Normal 38859-4) [facility] [id number] 16:31:00 Test Item Value Reference Range Interpretation Comments WBC (test code = See_Comment [Automated 8074-2) message] The sy stem which generated this result transmitted reference range : 4.20 - 10.70 10*3/?L. The reference range was not used to interpret this result as normal/abnormal . RBC (test code = See_Comment H [Automated 929-0) message] The sy stem which generated this [...] RDW-SD (test code = 39.0 fL 38.5-51.6 30039-6) RDW-CV (test code = 15.1 % 12.1-15.4 788-0) PLT (test code = See_Comment [Automated 777-3) message] The sy stem which generated this result transmitted reference range : 150 - 328 10*3/ ?L. The reference r klarissa was not used to interpret this result as normal/abnormal . MPV (test code = 8.9 fL 9.8-13 L 50110-2) NRBC/100 WBC (test See_Comment [Automat ed code = 0572357119) message] The system which generated this result transmitted reference range : 0.0 - 10.0 /100 WBCs. The refer ence range was not u sed to interpret th is result as normal/abnormal . NRBC x10^3 (test code <0.01 See_Comment [Auto mated = 0532602553) message] The s ystem which generated this result transmitted reference range : 10*3/?L. The reference range was not used to interpret this result as normal/abnormal . GRAN MAT (NEUT) % 59.9 % (test code = 770-8) IMM GRAN % (test code 1.00 % = 4945114661) LYMPH % (test code = 26.3 % 736-9) MONO % (test code = 12.2 % 5905-5) EOS % (test code = 0.2 % 713-8) BASO % (test code = 0.4 % 706-2) GRAN MAT x10^3(ANC) 3.06 10*3/uL 1.99-6.95 (test code = 9174407224) IMM GRAN x10^3 (test 0.05 10*3/uL 0-0.06 code = 2718523736) LYMPH x10^3 (test code 1.34 10*3/uL 1.09-3.23 = 731-0) MONO x10^3 (test code 0.62 10*3/uL 0.36-1.02 = 742-7) EOS x10^3 (test code = <0.03 0.06-0.53 L 711-2) BASO x10^3 (test code <0.03 0.01-0.09 = 704-7) Lab Interpretation Abnormal (test code = 08778-4) [facility] 1 [id number] 16:30:04HISTORY: Chest pain. TECHNIQUE: 2 Portable AP [...] tortuous. CONCLUSIONS: No signs of acute cardiopulmonary disease.[facility], Radiant Results Inft User - 04/13/2019 [...] and tortuous.CONCLUSIONS: No signs of acute cardiopulmonary disease.[facility]"
[2022-01-24 10:40] LABS: Absolute Lymphocytes (CBC) 1.3 K/uL (0.7-4.9); Hematocrit 42.6 % (39.6-49.0); Lymphocytes % 30.4 % (15.3-44.8); MPV 7.2 fL (7.6-11.3); RBC Red Blood Cell Count 5.32 M/uL (4.33-5.43)
[2022-01-24 11:00] LABS: Albumin 3.1 g/dL (3.4-5.0); Magnesium 2.3 mg/dL (1.8-2.4); Potassium 4.2 mmol/L (3.5-5.1); Protein, Total 6.9 g/dL (6.4-8.2); Troponin High Sensitivity 19.2 pg/mL (<58.9)
--- NOTE | 2022-01-24 11:04 | EDPHYS ---
Physician Documentation [facility] Name: Deacon Howe Jr Age: 86 yrs Sex: Male : 1935 Arrival Date: 01/24/2022 Time: 09:32 Bed 14 Private MD: ED Physician Sarah Patel HPI: 01/24 09:44 This 86 yrs old Black Male presents to ER via EMS with complaints of Cold Exposure. sd2 09:45 73 yo M presents with CC of cold exposure. He reports going to bed last night "with no sd2 cover on" and that his portable heater was on and off all last night and woke up this morning cold from his neck to his waist with pain in this area as well. He also states his fingers and toes are cold. Reported temp from EMS was 95F axillary. Pt reports ongoing chronic pain that is currently worse. Reports he normally takes Tylenol every 12 hours and last took some last night. Denies any other complaints at this time. . Historical: - Allergies: 09:35 NKDA; vg1 - PMHx: 09:35 drug abuse; Hypertensive disorder; mass on kidney; vg1 - PSHx: 09:35 Cholecystectomy; hip; knee; vg1 - Immunization history:: Client reports having NOT received the Covid vaccine. - Social history:: Smoking status: Patient reports the use of cigarette tobacco products, smokes one-half pack cigarettes per day. ROS: 09:45 Constitutional: Negative for fever, chills, and weight loss, Eyes: Negative for injury, sd2 pain, redness, and discharge, Cardiovascular: Negative for chest pain, palpitations, and edema, Respiratory: Negative for shortness of breath, cough, wheezing. Abdomen/GI: Negative for abdominal pain, nausea, vomiting, diarrhea. MS/Extremity: Negative for injury and deformity, Skin: Negative for injury, rash, and discoloration, Neuro: Negative for headache, numbness and tingling. Exam: 09:45 Constitutional: This is a well developed, well nourished patient who is awake, alert, sd2 and in no acute distress. Head/Face: Normocephalic, atraumatic. Eyes: EOMI, normal conjunctiva bilaterally Chest/axilla: Normal chest wall appearance and motion. Nontender with no deformity. Cardiovascular: Regular rate and rhythm with a normal S1 and S2. No gallops, murmurs, or rubs. 2+ distal pulses. Respiratory: Lungs have equal breath sounds bilaterally, clear to auscultation and percussion. No rales, rhonchi or wheezes noted. No increased work of breathing, no retractions or nasal flaring. Abdomen/GI: Soft, non-tender, with normal bowel sounds. No guarding or rebound. No evidence of tenderness throughout. Skin: Cold to touch, dry with normal turgor. Normal color with no rashes, no lesions, and no evidence of cellulitis. MS/ Extremity: Pulses equal, no cyanosis. Neurovascular intact. Full, normal range of motion. Ambulatory without difficulty. Psych: Awake, alert, with orientation to person, place and time. Behavior, mood, and affect are within normal limits. 11:38 ECG was reviewed by the Attending Physician. NSR, rate 63, no STEMI criteria sd2 Vital Signs: 09:15 BP 151 / 89; Pulse 64; Resp 19; Temp 94(O); Pulse Ox 100% on R/A; Weight 70.31 kg; vg1 Height 6 ft. 2 in. (187.96 cm); Pain 8/10; 10:02 Temp 97.7(O); kr3 11:49 BP 144 / 82; Pulse 59; Resp 18; Temp 97.9(O); Pulse Ox 100% on R/A; kr3 11:57 BP 149 / 80; Pulse 62; Resp 18; Pulse Ox 100% on R/A; kr3 09:15 Body Mass Index 19.90 (70.31 kg, 187.96 cm) vg1 MDM: 09:33 Patient medically screened. jl9 09:45 Differential Diagnosis hypothermia, hypoglycemia, drug use, dehydration, electrolyte sd2 abnormality, environmental exposure among others. Data reviewed: vital signs, nurses notes, EMS record. 11:02 Data reviewed:. Data reviewed: lab test result(s), EKG. Counseling: I had a detailed sd2 discussion with the patient and/or guardian regarding: the historical points, exam findings, and any diagnostic results supporting the discharge/admit diagnosis, radiology results, the need for outpatient follow up, to return to the emergency department if symptoms worsen or persist or if there are any questions or concerns that arise at home. Medical screen evaluation completed. [facility] emergency medical condition absent. ED course: Labs reviewed. Labs are grossly within normal clinical limits. The patient has warmed up and increased his core body temperature back to a normal range. He is ambulatory without difficulty and feeling well and tolerating p.o. He has no further acute complaints at this time. He verbalizes understanding of discharge plan and strict return precautions.. 01/24 09:49 Order name: CBC with Diff; Complete Time: 11:01 sd2 01/24 09:49 Order name: CMP; Complete Time: 11:01 sd2 01/24 09:49 Order name: Magnesium; Complete Time: 11:01 sd2 01/24 09:49 Order name: Troponin High Sensitivity; Complete Time: 11:01 sd2 01/24 09:49 Order name: EKG - Nurse/Tech; Complete Time: 11:32 sd2 01/24 10:44 Order name: Glucose, Ancillary Testing; Complete Time: 11:01 EDMS 01/24 09:49 Order name: Glucose Level; Complete Time: 10:33 sd2 01/24 09:49 Order name: Aliceanamika Chin; Complete Time: 10:03 sd2 Administered Medications: No medications were administered Disposition Summary: 01/24/22 11:03 Discharge Ordered Location: Home sd2 Problem: new sd2 Symptoms: have improved sd2 Condition: Stable sd2 Diagnosis - Hypothermia, initial encounter sd2 - Other chronic pain sd2 Followup: sd2 - With: Private Physician - When: 2 - 3 days - Reason: Recheck today's complaints, Continuance of care, Re-evaluation by your physician Discharge Instructions: - Discharge Summary Sheet sd2 - Chronic Pain, Adult sd2 - Hypothermia Prevention sd2 - Hypothermia sd2 Forms: - Medication Reconciliation Form sd2 - Thank You Letter sd2 - Antibiotic Education sd2 - Prescription Opioid Use sd2 Signatures: Dispatcher [employer] Kiara De La Cruz RN RN vg1 Linares, John jl9 Dunlop, Stephanie, MD MD sd2
--- NOTE | 2022-01-24 11:04 | ER ---
Nurse's Notes [facility] Name: Deacon Howe Jr Age: 86 yrs Sex: Male : 1935 Arrival Date: 01/24/2022 Time: 09:32 Bed 14 Private MD: Diagnosis: Hypothermia, initial encounter;Other chronic pain Presentation: 01/24 09:15 Chief complaint: EMS states: Pt is from home and has a portable heater that works off vg1 and on; pt c/o feeling cold and upper body pain. Oral temperature was 94, BP 174/89, HR 61. 09:15 Coronavirus screen: Vaccine status: Patient reports being unvaccinated. Ebola Screen: 1 Patient negative for fever greater than or equal to 101.5 degrees Fahrenheit, and additional compatible Ebola Virus Disease symptoms Patient denies exposure to infectious person. Initial Sepsis Screen: Does the patient meet any 2 criteria? Temp <36.0*C (96.8*F)) or > 38.3*C (100.9*F). Does the patient have a suspected source of infection? No. Patient's initial sepsis screen is negative. Risk Assessment: Do you want to hurt yourself or someone else? Patient reports no desire to harm self or others. Onset of symptoms was January 24, 2022. 09:15 Method Of Arrival: EMS: [facility] 09:15 Acuity: ALIN 2 vg1 Triage Assessment: 09:15 General: Appears in no apparent distress. uncomfortable, slender, unkempt, Behavior is vg1 calm, cooperative. Pain: Complains of pain in back, chest, abdomen, right arm and left arm Pain currently is 8 out of 10 on a pain scale. Noted to be grimacing, moaning. Neuro: Level of Consciousness is awake, alert, obeys commands, Oriented to person, place, time, situation. Cardiovascular: Capillary refill is > 3 seconds in bilateral fingers. Respiratory: Airway is patent Respiratory effort is even, unlabored. GI: Abdomen is flat, Patient currently denies nausea, vomiting. : No signs and/or symptoms were reported regarding the genitourinary system. Derm: Skin temperature is cold. Musculoskeletal: Circulation, motion, and sensation intact. Historical: - Allergies: 09:35 NKDA; vg1 - PMHx: 09:35 drug abuse; Hypertensive disorder; mass on kidney; vg1 - PSHx: 09:35 Cholecystectomy; hip; knee; vg1 - Immunization history:: Client reports having NOT received the Covid vaccine. - Social history:: Smoking status: Patient reports the use of cigarette tobacco products, smokes one-half pack cigarettes per day. Screenin:37 Abuse screen: Denies threats or abuse. Nutritional screening: No deficits noted. vg1 Tuberculosis screening: No symptoms or risk factors identified. Fall Risk No fall in past 12 months (0 pts). No secondary diagnosis (0 pts). IV access (20 points). Ambulatory Aid- Crutches/Cane/Walker (15 pts). Gait- Weak (10 pts.). Mental Status- Oriented to own ability (0 pts). Total Pedroza Fall Scale indicates Low Risk Score (25-44 pts). Fall prevention measures have been instituted. Side Rails Up X 2 Placed close to Nursing Station As available Patient and Family Educated on Fall Prevention Program and strategies. Assessment: 10:03 General: Appears in no apparent distress. comfortable, Behavior is calm, cooperative. kr3 Vital Signs: 09:15 BP 151 / 89; Pulse 64; Resp 19; Temp 94(O); Pulse Ox 100% on R/A; Weight 70.31 kg; vg1 Height 6 ft. 2 in. (187.96 cm); Pain 8/10; 10:02 Temp 97.7(O); kr3 11:49 BP 144 / 82; Pulse 59; Resp 18; Temp 97.9(O); Pulse Ox 100% on R/A; kr3 11:57 BP 149 / 80; Pulse 62; Resp 18; Pulse Ox 100% on R/A; kr3 09:15 Body Mass Index 19.90 (70.31 kg, 187.96 cm) vg1 ED Course: 09:15 Arm band placed on. vg1 09:15 Patient maintains SpO2 saturation greater than 95% on room air. Thermoregulation: Alice vg1 blanket applied. 09:32 Patient arrived in ED. aa5 09:33 Cristiano Moreno is PHCP. jl9 09:33 Sarah Patel MD is Attending Physician. jl9 09:35 Triage completed. vg1 09:36 Patient has correct armband on for positive identification. Placed in gown. Bed in low vg1 position. Call light in reach. Side rails up X2. Client placed on continuous cardiac and pulse oximetry monitoring. NIBP monitoring applied. 10:03 Elena Cruz, RN is Primary Nurse. kr3 10:21 Inserted saline lock: 22 gauge in left ,using aseptic technique. ankle. vg1 10:24 Troponin High Sensitivity Sent. kr3 10:24 Magnesium Sent. kr3 10:24 CMP Sent. kr3 10:24 CBC with Diff Sent. kr3 11:49 No provider procedures requiring assistance completed. IV discontinued, intact, kr3 bleeding controlled, No redness/swelling at site. Pressure dressing applied. Administered Medications: No medications were administered Medication: 09:37 VIS not applicable for this client. vg1 Outcome: 11:03 Discharge ordered by . sd2 11:49 Discharged to home via wheelchair. kr3 11:49 Condition: stable 11:49 Discharge instructions given to patient. 11:58 Patient left the ED. kr3 Signatures: Jerilyn Monaco, RN RN [email or web address] Kiara Stack RN RN vg1 Cristiano Moreno Stephanie, MD MD sd2 Elena Cruz, RN RN kr3
[2022-01-24 12:18] VITALS: O2SAT 100
[2022-01-24 12:46] VITALS: TEMP 97.9
[2022-01-24 12:47] VITALS: BP 149/80
--- NOTE | 2022-01-27 08:27 | EKG ---
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
== END 2022-01-24 11:58 | disposition home or self-care (01) ==
LOC: ER 09:04
DX: T68.XXXA Hypothermia, initial encounter (principal); G89.29 Other chronic pain; I10 Essential (primary) hypertension; F17.210 Nicotine dependence, cigarettes, uncomplicated
CPT/HCPCS: 36415; 80053; 82947; 83735; 84484; 85025; 93005; 99285